=== PATIENT | male | born 1965 | race Caucasian/White ===

== ENCOUNTER 2019-12-03 05:07 | Emergency (ER) | payer OTHER, SELFPAY ==
--- OUTSIDE RECORDS SUMMARY | 2019-12-03 05:11 | XMS REPORT | Summary of Care ---
:1965 [facility] Address [address] [place] [phone] Encounter HQ [id number](FIN) [phone] Date(s): 01/06/18 - 01/07/[address] [phone] Discharge Disposition: Acute Care Attending Physician: Leobardo Estevez MD Vital Signs Most recent to oldest 1 2 3 [Reference Range]: Height 175.26 cm (01/06/18 11:00 PM) Temperature Oral [96.4-99.1 97.6 DegF 98.3 DegF 98.9 DegF DegF] (01/07/18 2:21 AM) (01/07/18 1:30 AM) (01/06/18 11: 00 PM) Blood Pressure [90-140/60-90 145/70 mmHg 140/80 mmHg 138 /81 mmHg mmHg] *HI* (01/07/18 1:30 AM) (01/07/18 12:24 AM) (01/07/18 2:21 AM) Respiratory Rate [14-20 22 BRMIN 20 BRMIN 20 BRMIN BRMIN] *HI* (01/07/18 1:30 AM) (01/07/18 12:24 AM) (01/07/18 2:21 AM) Peripheral Pulse Rate [60-100 98 bpm 100 bpm 10 4 bpm bpm] (01/07/18 2:21 AM) (01/07/18 1:30 AM) *HI* (01/07/18 12:24 A M) Weight 50 kg (01/06/18 11:00 PM) Body Mass Index 16.28 m2 (01/06/18 11:00 PM) Problem List No data available for this section Allergies, Adverse Reactions, Alerts Substance Reaction Severity Status NKDA Active Medications D5NS 1,000 mL 1,000 mL, Rate: 250 ml/hr, Infuse over: 4 hr, Route: IV, Dosing Weight 50 kg, Total Volume: 1,000, Start date: 01/07/18 0:10:00 CDT, Duration: 30 day, Stop date: 02/06/18 0:09:00 CDT, 1.56, m2 Start Date: 01/07/18 Stop Date: 01/07/18 Status: DiscontinuedDextrose 50% Syringe 25 gm, 50 mL, Route: IVP, Drug Form: INJ, kg, PRN, PRN Blood Glucose Results, Start date: 01/06/18 22:58:00 CDT, Duration: 30 day, Stop date: 02/05/18 22:57:00 CDT Start Date: 01/06/18 Stop Date: 01/07/18 Status: DiscontinuedDextrose 50% Syringe 12.5 gm, 25 mL, Route: IVP, Drug Form: INJ, kg, PRN, PRN Blood Glucose Results, Start date: 01/06/1822:58:00 CDT, Duration: 30 day, Stop date: 02/05/18 22:57:00 CDT Start Date: 01/06/18 Stop Date: 01/07/18 Status: Discontinuedglucagon 1 mg, Route: IM, Drug form: PDR/INJ, PRN, kg, PRN Blood Glucose Results, Start date: 01/06/18 22:58:00 CDT, Duration: 30 day, Stop date: 02/05/18 22:57:00 CDT Start Date: 01/06/18 Stop Date: 01/07/18 Status: DiscontinuedInsulin (regular) Titrate IV additive 100 unit + Sodium Chloride 0.9% (titrate) 99 mL 99 mL, Rate: Titrate, Dosing Weight 50, kg, Route: IV, Total Volume: 100, Priority: Routine, Start Date: 01/07/18 0:10:00 CDT, Duration: 30 day, Stop date: 02/06/18 0:09:00 CDT, Replace Every: 24 hr Notes: (Same as: Humulin R and NovoLIN R)WASTE: F/P - Black; E - Municipal Trash Bin (Do not shake) Start Date: 01/07/18 Stop Date: 01/07/18 Status: DiscontinuedLactated Ringers (Bolus) IV 1,500 mL, 2,000 ml/hr, Route: IV, ONCE, Priority: STAT, Dosing Weight 50 kg, Start date: 01/06/18 23:45:00 CDT, Stop date: 01/06/18 23:45:00 CDT Start Date: 01/06/18 Stop Date: 01/06/18 Status: Discontinuedmagnesium sulfate 1 gm, 100 mL, Route: IVPB, Drug form: INJ, PRN, Dosing Weight 50, kg, PRN Abnormal Lab Result, Startdate: 01/07/18 0:10:00 CDT, Duration: 30 day, Stop date: 02/06/18 0:09:00 CDT Notes: WASTE: F/P - Sink; E - Municipal Trash Bin Start Date: 01/07/18 Stop Date: 01/07/18 Status: Discontinuedondansetron 4 mg, 2 mL, Route: IVP, Drug form: INJ, ONCE, kg, Priority: STAT, Start date: 01/06/18 22:58:00 CDT,Stop date: 01/06/18 22:58:00 CDT Notes: (Same as: Zofran) MEDICATION WASTE Product Size: 4 mgProduct Wasted: ___ mg Start Date: 01/06/18 Stop Date: 01/06/18 Status: Completedpotassium chloride 20 mEq, 100 mL, Route: IVPB, Drug form: INJ, PRN, Dosing Weight 50, kg, PRN Abnormal Lab Result, Viacentral line, Start date: 01/07/18 0:10:00 CDT, Duration: 30 day, Stop date: 02/06/18 0:09:00 CDT Notes: (Same as: KCL) Infuse no faster than 10 mEq/hr if given peripherally. Start Date: 01/07/18 Stop Date: 01/07/18 Status: Discontinuedpotassium chloride 10 mEq, 100 mL, Route: IVPB, Drug form: INJ, PRN, Dosing Weight 50, kg, PRN Abnormal Lab Result, Viaperipheral line, Start date: 01/07/18 0:10:00 CDT, Duration: 30 day, Stop date: 02/06/18 0:09:00 CDT Notes: Infuse at a rate of 10 mEq/hr.(Same as: KCL) Start Date: 01/07/18 Stop Date: 01/07/18 Status: Discontinuedpotassium phosphate + Sodium Chloride 0.9% IV 250 mL 30 mmol, 10 mL, Route: IVPB, PRN, Dosing Weight 50, kg, PRN Abnormal Lab Result, Start date: 01/07/18 0:10:00 CDT, Duration: 30 day, Stop date: 02/06/18 0:09:00 CDT Notes: (Same as: K Phosphate.) 1 mMol phoshate has 1.47 mEq potassium Infuse over 4 hours Start Date: 01/07/18 Stop Date: 01/07/18 Status: Discontinuedpotassium phosphate + Sodium Chloride 0.9% IV 250 mL 15 mmol, 5 mL, Route: IVPB, PRN, Dosing Weight 50, kg, PRN Abnormal Lab Result, Start date: 180:10:00 CDT, Duration: 30 day, Stop date: 02/06/18 0:09:00 CDT Notes: (Same as: K Phosphate.) 1 mMol phoshate has 1.47 mEq potassium Infuse over 4 hours Start Date: 01/07/18 Stop Date: 01/07/18 Status: DiscontinuedSaline Flush 0.9% 10 mL, Route: IVP, Drug Form: INJ, kg, PRN, PRN Line Flush, Start date: 01/06/18 22:58:00 CDT, Duration: 30 day, Stop date: 02/05/18 22:57:00 CDT Notes: (Same as: BD Posiflush) Start Date: 01/06/18 Stop Date: 01/07/18 Status: DiscontinuedSaline Flush 0.9% 10 mL, Route: IVP, Drug Form: INJ, Dosing Weight 50, kg, PRN, PRN Line Flush, Start date: 01/06/18 23:45:00 CDT, Duration: 30 day, Stop date: 02/05/18 23:44:00 CDT Notes: (Same as: BD Posiflush) Start Date: 01/06/18 Stop Date: 01/07/18 Status: DiscontinuedSodium Chloride 0.9% (Bolus) IV 1,000 mL, 1000 ml/hr, Infuse Over: 1 hr, Route: IV, 1,000, Drug form: INJ, ONCE, Priority: STAT, kg,Start date: 01/06/18 22:58:00 CDT, Stop date: 01/06/18 22:58:00 CDT Start Date: 01/06/18 Stop Date: 01/06/18 Status: CompletedSodium Chloride 0.9% (Bolus) IV 1,000 mL, 1000 ml/hr, Infuse Over: 1 hr, Route: IV, 1,000, Drug form: INJ, ONCE, Priority: STAT, Dosing Weight 50 kg, Start date: 01/07/18 0:10:00 CDT, Stop date: 01/07/18 0:10:00 CDT Start Date: 01/07/18 Stop Date: 01/07/18 Status: Completed Results ELECTROLYTES Most recent to oldest [Reference Range]: 1 Sodium Lvl [135-145 mEq/L] 137 mEq/L (01/06/18 11:15 PM) Potassium Lvl [3.5-5.1 mEq/L] 4.5 mEq/L (01/06/18 11:15 PM) Chloride Lvl [95-109 mEq/L] 103 mEq/L (01/06/18 11:15 PM) CO2 [24-32 mEq/L] 14 mEq/L *LOW* (01/06/18 11:15 PM) AGAP [10.0-20.0 mEq/L] 24.5 mEq/L *HI* (01/06/18 11:15 PM) CHEM PANEL Most recent to oldest [Reference Range]: 1 Creatinine Lvl [0.50-1.40 mg/dL] 1.80 mg/dL *HI* (01/06/18 11:15 PM) eGFR 42 mL/min/1.73m2 1 *NA* (01/06/18 11:15 PM) BUN [7-22 mg/dL] 27 mg/dL *HI* (01/06/18 11:15 PM) B/C Ratio [6-25] 15 (01/06/18 11:15 PM) Glucose Lvl [70-99 mg/dL] 332 mg/dL *HI* (01/06/18 11:15 PM) Total Protein [6.4-8.4 g/dL] 8.7 g/dL *HI* (01/06/18 11:15 PM) Albumin Lvl [3.5-5.0 g/dL] 4.5 g/dL (01/06/18 11:15 PM) Globulin [2.7-4.2 g/dL] 4.2 g/dL (01/06/18 11:15 PM) A/G Ratio [0.7-1.6] 1.1 (01/06/18 11:15 PM) Calcium Lvl [8.5-10.5 mg/dL] 9.5 mg/dL (01/06/18 11:15 PM) Phosphorus [2.5-4.5 mg/dL] 4.0 mg/dL (01/06/18 11:15 PM) Magnesium Lvl [1.8-2.4 mg/dL] 2.4 mg/dL (01/06/18 11:15 PM) ALT [0-65 unit/L] 44 unit/L (01/06/18 11:15 PM) AST [0-37 unit/L] 30 unit/L (01/06/18 11:15 PM) Alk Phos [39-136 unit/L] 103 unit/L (01/06/18 11:15 PM) Bili Total [0.2-1.3 mg/dL] 0.6 mg/dL (01/06/18 11:15 PM) Lipase Lvl [73-393 unit/L] 358 unit/L (01/06/18 11:15 PM) Ketone Quantitative [<=0.27 mmol/L] 4.44 mmol/L *HI* (01/06/18 11:15 PM) Lactic Acid Lvl [0.5-2.2 mMol/L] 5.2 mMol/L 2 *CRIT* (01/06/18 11:15 PM) Procalcitonin Lvl [0.00-0.10] 0.13 *HI* (01/07/18 12:21 AM) 1Result Comment: The eGFR is calculated using the CKD-EPI formula. In most young, healthy individualsthe eGFR will be >90 mL/min/1.73m2. The eGFR declines with age. An eGFR of 60-89 may be normal insome populations, particularly the elderly, for whom the CKD-EPI formula has not been extensively validated. Use of the eGFR is not recommended in the following populations: Individuals with unstable creatinine concentrations, including patients and those with serious co-morbid conditions. Patients with extremes in muscle mass or diet. The data above are obtained from the National Kidney Disease Education Program (NKDEP) which additionally recommends that when the eGFR is used in patients with extremes of body mass index for purposesof drug dosing, the eGFR should be multiplied by the estimated BMI.2Result Comment: Critical Result(s) called to Mojgan Paul at [phone]_ by_JJ. Read back OK.CARDIAC ENZYMES Most recent to oldest [Reference Range]: 1 Total CK [12-191 unit/L] 54 unit/L (01/06/18 11:15 PM) CK MB [0.5-3.6 ng/mL] 0.6 ng/mL (01/06/18 11:15 PM) CK MB Index [0.0-2.5] 1.1 (01/06/18 11:15 PM) Troponin-I [0.00-0.40 ng/mL] <0.02 ng/mL (01/06/18 11:15 PM) DRUG SCREEN Most recent to oldest [Reference Range]: 1 U Amph Scr [Negative] Negative *NA* (01/07/18 2:11 AM) U Latisha Scr [Negative] Negative *NA* (01/07/18 2:11 AM) U Benzodia Scr [Negative] Negative *NA* (01/07/18 2:11 AM) U Cocaine Scr [Negative] Positive *ABN* (01/07/18 2:11 AM) U Opiate Scr [Negative] Negative *NA* (01/07/18 2:11 AM) U Phencyc Scr [Negative] Negative *NA* (01/07/18 2:11 AM) U Cannab Scr [Negative] Negative *NA* (01/07/18 2:11 AM) UDS Note See Note (01/07/18 2:11 AM) TOXICOLOGY Most recent to oldest [Reference Range]: 1 Etoh (%) <.003 % *NA* (01/06/18 11:15 PM) Ethanol Lvl <3 mg/dL *NA* (01/06/18 11:15 PM) URINE AND STOOL Most recent to oldest [Reference Range]: 1 UA Turbidity [Clear] Clear (01/07/18 2:11 AM) UA Color [Yellow] Yellow *NA* (01/07/18 2:11 AM) UA pH [5.0-8.0] 5.0 (01/07/18 2:11 AM) UA Spec Grav [<=1.030] 1.017 (01/07/18 2:11 AM) UA Glucose >=500 mg/dL *NA* (01/07/18 2:11 AM) UA Blood [Negative] Negative (01/07/18 2:11 AM) UA Ketones [Negative mg/dL] 80 mg/dL *ABN* (01/07/18 2:11 AM) UA Protein [Negative mg/dL] Negative mg/dL (01/07/18 2:11 AM) UA Urobilinogen [0.1-1.0 mg/dL] <=1.0 mg/dL *NA* (01/07/18 2:11 AM) UA Bili [Negative] Negative *NA* (01/07/18 2:11 AM) UA Leuk Est [Negative] Negative (01/07/18 2:11 AM) UA Nitrite [Negative] Negative (01/07/18 2:11 AM) UA WBC [0-5 /HPF] 2 /HPF (01/07/18 2:11 AM) UA RBC [0-2 /HPF] 2 /HPF (01/07/18 2:11 AM) UA Sq Epi [Few /LPF] Occasional /LPF *NA* (01/07/18 2:11 AM) UA Hyal Cast [0-2 /LPF] 4 /LPF *HI* (01/07/18 2:11 AM) UA Mucus [None Seen /LPF] Few /LPF *NA* (01/07/18 2:11 AM) HEMATOLOGY Most recent to oldest [Reference Range]: 1 WBC [3.7-10.4 K/CMM] 26.5 K/CMM *HI* (01/06/18 11:15 PM) RBC [4.70-6.10 M/CMM] 4.92 M/CMM (01/06/18 11:15 PM) Hgb [14.0-18.0 g/dL] 15.1 g/dL (01/06/18 11:15 PM) Hct [42.0-54.0 %] 43.9 % (01/06/18 11:15 PM) MCV [80.0-94.0 fL] 89.2 fL (01/06/18 11:15 PM) MCH [27.0-31.0 pg] 30.6 pg (01/06/18 11:15 PM) MCHC [32.0-36.0 g/dL] 34.3 g/dL (01/06/18 11:15 PM) RDW [11.5-14.5 %] 14.9 % *HI* (01/06/18 11:15 PM) MPV [7.4-10.4 fL] 7.2 fL *LOW* (01/06/18 11:15 PM) Platelet [133-450 K/CMM] 492 K/CMM *HI* (01/06/18 11:15 PM) Segs [45.0-75.0 %] 84.6 % *HI* (01/06/18 11:15 PM) Lymphocytes [20.0-40.0 %] 8.3 % *LOW* (01/06/18 11:15 PM) Monocytes [2.0-12.0 %] 6.5 % (01/06/18 11:15 PM) Basophils [0.0-1.0 %] 0.6 % (01/06/18 11:15 PM) Segs-Bands # [1.5-8.1 K/CMM] 22.4 K/CMM *HI* (01/06/18 11:15 PM) Lymphocytes # [1.0-5.5 K/CMM] 2.2 K/CMM (01/06/18 11:15 PM) Monocytes # [0.0-0.8 K/CMM] 1.7 K/CMM *HI* (01/06/18 11:15 PM) Basophils # [0.0-0.2 K/CMM] 0.2 K/CMM (01/06/18 11:15 PM) RBC Morph Normal (01/06/18 11:15 PM) Plt Morph Normal (01/06/18 11:15 PM) PT [12.0-14.7 seconds] 13.1 seconds (01/06/18 11:15 PM) INR [0.85-1.17] 0.99 (01/06/18 11:15 PM) PTT [22.9-35.8 seconds] 29.2 seconds (01/06/18 11:15 PM) Immunizations No data available for this section Procedures Procedure Date Related Diagnosis Body Site Status Cardiac catheter without angiogram1 Completed 1stents placed Social History Social History Type Response Substance Abuse Use: Current. Type: Marijua na. Alcohol Current Smoking Status Current every day smoker; Ty pe: Cigarettes; Exposure to Tobacco Smoke None; Cigarette Smoking Last 365 Days Yes; Reg Smoking Cessation Counseling No entered on: 01/06/18 Assessment and Plan No data available for this section
--- OUTSIDE RECORDS SUMMARY | 2019-12-03 05:11 | XMS REPORT | Summary of Care ---
:1965 Author Organization [facility] Address [address] [place] [address] Care Team Providers Name Role Phone Jf Potter MD Unavailable Andrea Beasley Primary Care Provider Reason for Visit Reason Comments Results Encounter Details Date Type Department Care Team Description 02/22/[address] [facility] Cardiology, Avtar Potter MD Results [facility] [address] [facility] [address] [facility] [address] [place] [address] [place] [id number] Allergies No Known Allergiesdocumented as of this encounter (statuses as of 02/22/2019) Medications Medication Sig Dispensed Refills Start Date End Date Status aspirin 81 mg chewable Take 81 mg by 0 Active tablet mouth daily. nitroglycerin 0.[address] 1 tablet 1 Bottle 2 11/03/2016 Active sublingual tablet under the tongue every 5 (five) minutes as needed for Chest pain. insulin aspart (NOVOLOG inject 5 Units 14 mL 1 05/27/2017 Active FLEXPEN) 100 unit/mL under the skin 3 injectionIndications: (three) times Type 1 diabetes daily before mellitus with other meals. + sliding circulatory scale as complication mentioned upto 8 units with meals clopidogrel 75 mg Take 1 tablet by 30 tablet 0 10/27/2018 Active tabletIndications: mouth daily. Coronary artery disease involving [place] coronary artery of [place] heart without angina pectoris METOPROLOL TARTRATE 25 TAKE ONE TABLET 60 tablet 0 12/01/2018 Active mg tabletIndications: BY MOUTH TWICE A Essential hypertension, DAY Coronary artery disease involving [place] coronary artery of [place] heart without angina pectoris ATORVASTATIN 80 mg TAKE ONE TABLET 30 tablet 0 12/01/2018 Active tabletIndications: BY MOUTH AT Coronary artery disease BEDTIME involving [place] coronary artery of [place] heart without angina pectoris ondansetron 4 mg Take 1 tablet by 12 tablet 0 01/08/2019 Active disintegrating mouth every 8 tabletIndications: (eight) hours as Nausea vomiting and needed for Nausea diarrhea, SOB and Vomiting (shortness of breath), (N/V). Dehydration lisinopril 5 mg tablet Take 5 mg by 0 Active mouth 2 (two) times daily. ezetimibe 10 mg tablet Take 1 tablet by 30 tablet 5 02/22/2019 Active mouth daily. Get blood work done April 26, 2019 documented as of this encounter (statuses as of 02/22/2019) Active Problems Problem Noted Date Type 1 diabetes mellitus with complication 05/27/2017 CAD (coronary artery disease), [place] coronary artery 12/09/2016 documented as of this encounter (statuses as of 02/22/2019) Immunizations Name Administration Dates Next Due Influenza Virus Vaccine 08/30/2017 documented as of this encounter Social History Tobacco Use Types Packs/Day Years Used Date Current Every Day Smoker Cigarettes 1 25 Smokeless Tobacco: Current User Alcohol Use Drinks/Week oz/Week Comments Yes once a month Sex Assigned at Date Recorded Not on file Job Start Date Occupation Industry Not on file Not on file Not on file Travel History Travel Start Travel End No recent travel history available. documented as of this encounter Last Filed Vital Signs Not on filedocumented in this encounter Plan of Treatment Date Type Specialty Care Team Description 07/13/2019 Office Visit Cardiology Avtar Potter MD [address] [place] [address] [place] [phone] Name Type Priority Associated Diagnoses Order S chedule LIPID PANEL LAB Routine Dyslipidemia Expected: 04/26 ([id number])(TOTAL (Approximate), Expires: CHOLESTEROL, 06/24/2019 TRIGLYCERIDES, HDL) Health Maintenance Due Date Last Done Comments PNEUMOCOCCAL 0-64 YEARS COMBINED 1970 SERIES (1 of 1 - PPSV23) EYE EXAM 1974 FOOT EXAM 1982 DTaP,Tdap,and Td Vaccines (1 - 1983 Tdap) COLONOSCOPY 2014 Zoster Recombinant Vaccine 2014 (SHINGRIX) (1 of 2) INFLUENZA VACCINE 03/26/2019 08/30/2017 HgA1C 05/19/2019 11/17/2018, 11/19/2016, 08/28/2003 LDL-C 11/18/2019 11/17/2018, 12/08/2016, 11/19/2016, Additional history exists URINE MICROALBUMIN 11/18/2019 11/17/2018, 12/08/2016 CREATININE (SERUM) 01/09/2020 01/08/2019, 11/17/2018, 12/10/2016, Additional history exists HEPATITIS C (HCV) SCREEN Completed 09/22/2016 documented as of this encounter Results Not on filedocumented in this encounter Visit Diagnoses Diagnosis Dyslipidemia - Primary Other and unspecified hyperlipidemia documented in this encounter Insurance Payer Benefit Plan Subscriber ID Effective Phone Address Typ e / Group Dates [employer] [id number] 2018-Prese [phone] [facility] [address] [place] [address] G[place]ON LEYVA [id number] 2018-Pres [phone] [facility] [address] [place] [address] documented as of this encounter
--- OUTSIDE RECORDS SUMMARY | 2019-12-03 05:11 | XMS REPORT | Summary of Care ---
:1965 Author Organization Formerly [facility] ospital Address [address] [place], [place] [address]- Encounter [facility] Latrice(DELON) [id number] Date(s): 01/07/18 - 01/08/18 [facility] [address] [place] [address]- Encounter Diagnosis Type 1 diabetes mellitus with ketoacidosis without coma (Final) - Discharge Disposition: Home or Self Care Attending Physician: Jaswinder Duncan MD Admitting Physician: Jaswinder Duncan MD Referring Physician: Alisha Bolanos MD Vital Signs Most recent to oldest 1 2 3 [Reference Range]: Height 167.64 cm (01/07/18 3:14 AM) Temperature Oral [96.4-99.1 98.1 DegF 98.4 DegF 98 D egF DegF] (01/08/18 12:05 PM) (01/08/18 8:08 AM) (01/08/18 3: 13 AM) Blood Pressure [90-140/60-90 147/81 mmHg 154/78 mmHg 149 /77 mmHg mmHg] *HI* *HI* *HI* (01/08/18 12:05 PM) (01/08/18 8:08 AM) (01/08/18 3: 13 AM) Respiratory Rate [14-20 BRMIN] 16 BRMIN 16 BRMIN 1 6 BRMIN (01/08/18 12:05 PM) (01/08/18 8:08 AM) (01/08/18 7: 58 AM) Peripheral Pulse Rate [60-100 90 bpm 89 bpm 90 bpm bpm] (01/08/18 12:05 PM) (01/08/18 8:08 AM) (01/08/18 3: 13 AM) Weight 43.6 kg (01/07/18 3:14 AM) Body Mass Index 15.51 m2 (01/07/18 3:14 AM) Problem List No data available for this section Allergies, Adverse Reactions, Alerts Substance Reaction Severity Status NKDA Active Medications Carafate 1 gm, 1 tab, Route: PO, Drug form: TAB, QID, Dosing Weight 43.6, kg, Start date: 01/07/18 4:30:00 CDT, Duration: 30 day, Stop date: 02/05/18 21:00:00 CDT Notes: May interfere w/enteral feeds - Take 1 hr before or 2 hr after antacids, dairy pdt, meals & minerals - On empty stomach.For patients unable to swallow tablet, dissolve in 10mL - 30mL of water or juice and stir before giving. (Same As: Carafate) Start Date: 01/07/18 Stop Date: 01/08/18 Status: DiscontinuedChloraseptic 1.4% spray 3 spray, Route: TOP, Q3H, Drug form: SPRY, PRN Sore Throat, Start date: 01/07/18 13:54:00 CDT, Duration: 30 day, Stop date: 02/06/18 13:53:00 CDT Notes: Chloraseptic [place](Same as: Chloraseptic, Sore Throat [place])WASTE: F/P - Black; E - MunicipalTrash Bin Start Date: 01/07/18 Stop Date: 01/08/18 Status: [id number] 1,000 mL 1,000 mL, Rate: 250 ml/hr, Infuse over: 4 hr, Route: IV, Dosing Weight 43.6 kg, Total Volume: 1,000,Start date: 01/07/18 3:17:00 CDT, Duration: 30 day, Stop date: 02/06/18 3:16:00 CDT, 1.43, m2 Start Date: 01/07/18 Stop Date: 01/07/18 Status: DiscontinuedDextrose 50% Syringe 25 gm, 50 mL, Route: IVP, Drug Form: INJ, Dosing Weight 43.6, kg, PRN, PRN Blood Glucose Results, Start date: 01/07/18 3:17:00 CDT, Duration: 30 day, Stop date: 02/06/18 3:16:00 CDT Start Date: 01/07/18 Stop Date: 01/07/18 Status: DiscontinuedDextrose 50% Syringe 12.5 gm, 25 mL, Route: IVP, Drug Form: INJ, Dosing Weight 43.6, kg, PRN, PRN Blood Glucose Results, Start date: 01/07/18 3:17:00 CDT, Duration: 30 day, Stop date: 02/06/18 3:16:00 CDT Start Date: 01/07/18 Stop Date: 01/07/18 Status: DiscontinuedDextrose 50% Syringe 25 gm, 50 mL, Route: IVP, Drug Form: INJ, Dosing Weight 43.6, kg, PRN, PRN Blood Glucose Results, Start date: 01/07/18 9:11:00 CDT, Duration: 30 day, Stop date: 02/06/18 9:10:00 CDT Start Date: 01/07/18 Stop Date: 01/08/18 Status: DiscontinuedDextrose 50% Syringe 12.5 gm, 25 mL, Route: IVP, Drug Form: INJ, Dosing Weight 43.6, kg, PRN, PRN Blood Glucose Results, Start date: 01/07/18 9:11:00 CDT, Duration: 30 day, Stop date: 02/06/18 9:10:00 CDT Start Date: 01/07/18 Stop Date: 01/08/18 Status: DiscontinuedDuoNeb inhalation solution 3 ml, Route: NEB, Drug Form: SOLN, Dosing Weight 43.6, kg, PRN, PRN Respiratory Pathway, Start date:01/07/18 3:24:00 CDT, Duration: 30 day, Stop date: 02/06/18 3:23:00 CDT Notes: (Same as: Duoneb) Start Date: 01/07/18 Stop Date: 01/08/18 Status: Discontinuedglucagon 1 mg, Route: IM, Drug form: PDR/INJ, PRN, Dosing Weight 43.6, kg, PRN Blood Glucose Results, Start date: 01/07/18 3:17:00 CDT, Duration: 30 day, Stop date: 02/06/18 3:16:00 CDT Start Date: 01/07/18 Stop Date: 01/07/18 Status: Discontinuedglucagon 1 mg, Route: IM, Drug form: PDR/INJ, PRN, Dosing Weight 43.6, kg, PRN Blood Glucose Results, Start date: 01/07/18 9:11:00 CDT, Duration: 30 day, Stop date: 02/06/18 9:10:00 CDT Start Date: 01/07/18 Stop Date: 01/08/18 Status: Discontinuedheparin 5,000 unit, 1 mL, Route: SUB-Q, Drug form: INJ, Q12H, Dosing Weight 50, kg, Start date: 01/07/18 9:00:00 CDT, Duration: 30 day, Stop date: 02/05/18 21:00:00 CDT Notes: porcine heparin Start Date: 01/07/18 Stop Date: 01/08/18 Status: DiscontinuedInsulin (regular) Titrate IV additive 100 unit + Sodium Chloride 0.9% (titrate) 99 mL 99 mL, Rate: Titrate, Dosing Weight 43.6, kg, Route: IV, Total Volume: 100, Priority: Routine, StartDate: 01/07/18 3:17:00 CDT, Duration: 30 day, Stop date: 02/06/18 3:16:00 CDT, Replace Every: 24 hr Notes: (Same as: Humulin R and NovoLIN R)WASTE: F/P - Black; E - Municipal Trash Bin (Do not shake) Start Date: 01/07/18 Stop Date: 01/07/18 Status: Discontinuedinsulin glargine 10 unit, 0.1 mL, Route: SUB-Q, Drug form: SOLN, Daily, Dosing Weight 43.6, kg, Start date: 01/07/18 10:30:00 CDT, Duration: 30 day, Stop date: 02/06/18 9:00:00 CDT Notes: (Same as: Lantus)Do not hold insulin without contacting prescriberWASTE: F/P - Black; E - Municipal Trash Bin "single patient use only" Start Date: 01/07/18 Stop Date: 01/08/18 Status: Discontinuedinsulin isophane-NPH 5 unit, SUB-Q, QPM Start Date: 01/07/18 Status: Orderedinsulin isophane-NPH 15 unit, SUB-Q, QAM Start Date: 01/07/18 Status: Orderedinsulin lispro 2 unit, 0.02 mL, Route: SUB-Q, Drug form: SOLN, TID-Before Meals, Dosing Weight 43.6, kg, PRN Blood Glucose Results, Start date: 01/07/18 9:11:00 CDT, Duration: 30 day, Stop date: 02/06/18 9:10:00 CDT Notes: (Same as: Humalog ) Roll in palms of hands gently; Do not shake `vigorously. "Single PatientUse Only " WASTE: F/P - Black; E - Municipal Trash Bin Stable for 28 days at room temperature.Expires in days from Date Start Date: 01/07/18 Stop Date: 01/08/18 Status: Discontinuedinsulin lispro 4 unit, 0.04 mL, Route: SUB-Q, Drug form: SOLN, TID-Before Meals, Dosing Weight 43.6, kg, PRN Blood Glucose Results, Start date: 01/07/18 9:11:00 CDT, Duration: 30 day, Stop date: 02/06/18 9:10:00 CDT Notes: (Same as: Humalog ) Roll in palms of hands gently; Do not shake `vigorously. "Single PatientUse Only " WASTE: F/P - Black; E - Municipal Trash Bin Stable for 28 days at room temperature.Expires in days from Date Start Date: 01/07/18 Stop Date: 01/08/18 Status: Discontinuedinsulin lispro 6 unit, 0.06 mL, Route: SUB-Q, Drug form: SOLN, TID-Before Meals, Dosing Weight 43.6, kg, PRN Blood Glucose Results, Start date: 01/07/18 9:11:00 CDT, Duration: 30 day, Stop date: 02/06/18 9:10:00 CDT Notes: (Same as: Humalog ) Roll in palms of hands gently; Do not shake `vigorously. "Single PatientUse Only " WASTE: F/P - Black; E - Municipal Trash Bin Stable for 28 days at room temperature.Expires in days from Date Start Date: 01/07/18 Stop Date: 01/08/18 Status: Discontinuedinsulin lispro 10 unit, 0.1 mL, Route: SUB-Q, Drug form: SOLN, TID-Before Meals, Dosing Weight 43.6, kg, PRN Blood Glucose Results, Start date: 01/07/18 9:11:00 CDT, Duration: 30 day, Stop date: 02/06/18 9:10:00 CDT Notes: (Same as: Humalog ) Roll in palms of hands gently; Do not shake `vigorously. "Single PatientUse Only " WASTE: F/P - Black; E - Municipal Trash Bin Stable for 28 days at room temperature.Expires in days from Date Start Date: 01/07/18 Stop Date: 01/08/18 Status: Discontinuedinsulin lispro 8 unit, 0.08 mL, Route: SUB-Q, Drug form: SOLN, TID-Before Meals, Dosing Weight 43.6, kg, PRN Blood Glucose Results, Start date: 01/07/18 9:11:00 CDT, Duration: 30 day, Stop date: 02/06/18 9:10:00 CDT Notes: (Same as: Humalog ) Roll in palms of hands gently; Do not shake `vigorously. "Single PatientUse Only " WASTE: F/P - Black; E - Municipal Trash Bin Stable for 28 days at room temperature.Expires in days from Date Start Date: 01/07/18 Stop Date: 01/08/18 Status: Discontinuedinsulin lispro 3 unit, 0.03 mL, Route: SUB-Q, Drug form: SOLN, Bedtime, Dosing Weight 43.6, kg, PRN Blood Glucose Results, Start date: 01/07/18 9:11:00 CDT, Duration: 30 day, Stop date: 02/06/18 9:10:00 CDT Notes: (Same as: Humalog ) Roll in palms of hands gently; Do not shake `vigorously. "Single PatientUse Only " WASTE: F/P - Black; E - Municipal Trash Bin Stable for 28 days at room temperature.Expires in days from Date Start Date: 01/07/18 Stop Date: 01/08/18 Status: Discontinuedinsulin lispro 2 unit, 0.02 mL, Route: SUB-Q, Drug form: SOLN, Bedtime, Dosing Weight 43.6, kg, PRN Blood Glucose Results, Start date: 01/07/18 9:11:00 CDT, Duration: 30 day, Stop date: 02/06/18 9:10:00 CDT Notes: (Same as: Humalog ) Roll in palms of hands gently; Do not shake `vigorously. "Single PatientUse Only " WASTE: F/P - Black; E - Municipal Trash Bin Stable for 28 days at room temperature.Expires in days from Date Start Date: 01/07/18 Stop Date: 01/08/18 Status: Discontinuedinsulin lispro 1 unit, 0.01 mL, Route: SUB-Q, Drug form: SOLN, Bedtime, Dosing Weight 43.6, kg, PRN Blood Glucose Results, Start date: 01/07/18 9:11:00 CDT, Duration: 30 day, Stop date: 02/06/18 9:10:00 CDT Notes: (Same as: Humalog ) Roll in palms of hands gently; Do not shake `vigorously. "Single PatientUse Only " WASTE: F/P - Black; E - Municipal Trash Bin Stable for 28 days at room temperature.Expires in days from Date Start Date: 01/07/18 Stop Date: 01/08/18 Status: Discontinuedinsulin lispro 4 unit, 0.04 mL, Route: SUB-Q, Drug form: SOLN, Bedtime, Dosing Weight 43.6, kg, PRN Blood Glucose Results, Start date: 01/07/18 9:11:00 CDT, Duration: 30 day, Stop date: 02/06/18 9:10:00 CDT Notes: (Same as: Humalog ) Roll in palms of hands gently; Do not shake `vigorously. "Single PatientUse Only " WASTE: F/P - Black; E - Municipal Trash Bin Stable for 28 days at room temperature.Expires in days from Date Start Date: 01/07/18 Stop Date: 01/08/18 Status: Discontinuedinsulin lispro 3 unit, 0.03 mL, Route: SUB-Q, Drug form: SOLN, TID-Before Meals, Dosing Weight 43.6, kg, Start date: 01/07/18 11:30:00 CDT, Duration: 30 day, Stop date: 02/06/18 7:30:00 CDT Notes: (Same as: Humalog ) Roll in palms of hands gently; Do not shake `vigorously. "Single PatientUse Only " WASTE: F/P - Black; E - Municipal Trash Bin Stable for 28 days at room temperature.Expires in days from Date Start Date: 01/07/18 Stop Date: 01/08/18 Status: Discontinuedinsulin regular 100 units/mL human recombinant See Instructions, Sliding scale before meals based on BG result Start Date: 01/07/18 Status: Orderedmagnesium sulfate 1 gm, 100 mL, Route: IVPB, Drug form: INJ, PRN, Dosing Weight 43.6, kg, PRN Abnormal Lab Result, Start date: 01/07/18 3:17:00 CDT, Duration: 30 day, Stop date: 02/06/18 3:16:00 CDT Notes: WASTE: F/P - Sink; E - Municipal Trash Bin Start Date: 01/07/18 Stop Date: 01/07/18 Status: Discontinuedmupirocin topical 2% ointment 1 appl, Route: NASAL, Q12H, Drug form: OINT, Start date: 01/07/18 9:00:00 CDT, Duration: 5 day, Stopdate: 01/11/18 21:00:00 CDT Start Date: 01/07/18 Stop Date: 01/08/18 Status: DiscontinuedNon-Formulary Home Medication PO, Daily, Blood pressure medication - pt unsure of name of medication and dose Start Date: 01/07/18 Status: OrderedNorco 5/325 oral tablet 1 tab, Route: PO, Drug Form: TAB, Dosing Weight 43.6, kg, Q4H, PRN Pain Score 6- 10, Start date: 01/07/18 22:35:00 CDT, Duration: 30 day, Stop date: 02/06/18 22:34:00 CDT Notes: (Same as: [place] 325/5) Do not exceed 4gm/day of acetaminophen. Start Date: 01/07/18 Stop Date: 01/08/18 Status: Discontinuedpneumococcal 23-valent vaccine 0.5 mL, Route: IM, Drug Form: INJ, ONCALL, Start date: 01/07/18 4:31:58 CDT, Stop date: 02/06/18 4:26:58 CDT Notes: (Same as: Pneumovax 23) Refrigerate Start Date: 01/07/18 Stop Date: 01/08/18 Status: Canceledpotassium chloride + Sodium Chloride 0.9% IV 90 mL 20 mEq, 10 mL, Route: IVPB, PRN, Dosing Weight 43.6, kg, PRN Abnormal Lab Result, Via central line, Start date: 01/07/18 3:17:00 CDT, Duration: 30 day, Stop date: 02/06/18 3:16:00 CDT Notes: MUST be Diluted before use(Same as: KCl) MEDICATION WASTE Product Size: 40 mEqProduct Wasted: 20 mEq Start Date: 01/07/18 Stop Date: 01/07/18 Status: Discontinuedpotassium chloride + Sodium Chloride 0.9% IV 95 mL 10 mEq, 5 mL, Route: IVPB, PRN, Dosing Weight 43.6, kg, PRN Abnormal Lab Result, Via peripheral line, Start date: 01/07/18 3:17:00 CDT, Duration: 30 day, Stop date: 02/06/18 3:16:00 CDT Notes: MUST be Diluted before use(Same as: KCl) MEDICATION WASTE Product Size: 40 mEqProduct Wasted: 30 mEq Start Date: 01/07/18 Stop Date: 01/07/18 Status: Discontinuedpotassium phosphate + Sodium Chloride 0.9% IV 250 mL 15 mmol, 5 mL, Route: IVPB, PRN, Dosing Weight 43.6, kg, PRN Abnormal Lab Result, Start date: 01/07/18 3:17:00 CDT, Duration: 30 day, Stop date: 02/06/18 3:16:00 CDT Notes: (Same as: K Phosphate.) 1 mMol phoshate has 1.47 mEq potassium Infuse over 4 hours Start Date: 01/07/18 Stop Date: 01/07/18 Status: Discontinuedpotassium phosphate + Sodium Chloride 0.9% IV 250 mL 30 mmol, 10 mL, Route: IVPB, PRN, Dosing Weight 43.6, kg, PRN Abnormal Lab Result, Start date: 01/07/18 3:17:00 CDT, Duration: 30 day, Stop date: 02/06/18 3:16:00 CDT Notes: (Same as: K Phosphate.) 1 mMol phoshate has 1.47 mEq potassium Infuse over 4 hours Start Date: 01/07/18 Stop Date: 01/07/18 Status: DiscontinuedProtonix 40 mg, Route: IVP, Drug form: INJ, Daily, Dosing Weight 43.6, kg, Patient is NPO, Start date: 01/07/18 4:30:00 CDT, Duration: 30 day, Stop date: 02/05/18 9:00:00 CDT Notes: For IV push reconstitute with 10 ml 0.9% sodium chloride and push over 2 minutes. (Same as: Protonix) Start Date: 01/07/18 Stop Date: 01/08/18 Status: DiscontinuedProtonix 40 mg oral enteric coated tablet 40 mg = 1 tab, PO, Daily, # 30 tab, 0 Refill(s), Pharmacy: [facility] [id number] Start Date: 01/08/18 Status: OrderedProventil HFA 90 mcg/inh inhalation aerosol with adapter 1 puff, INHALER, QID, PRN for wheezing, # 25 gm, 0 Refill(s), [facility] [id number] Start Date: 01/08/18 Status: OrderedSodium Chloride 0.9% IV 1,000 mL 1,000 mL, Rate: 250 ml/hr, Infuse over: 4 hr, Route: IV, Dosing Weight 43.6 kg, Total Volume: 1,000,When Finger stick blood glucose values remain ABOVE 250 mg/dL administer until BG is less than 250 mg/dL., Start date: 01/07/18 3:17:00 CDT, Duration:... Start Date: 01/07/18 Stop Date: 01/07/18 Status: DiscontinuedTylenol 650 mg, 2 tab, Route: PO, Drug form: TAB, Q6H, Dosing Weight 43.6, kg, PRN Pain Score 1-5, Start date: 01/07/18 22:35:00 CDT, Duration: 30 day, Stop date: 02/06/18 22:34:00 CDT Notes: Do not exceed 4 gm/day. (Same as: Tylenol) Start Date: 01/07/18 Stop Date: 01/08/18 Status: Discontinued Results ELECTROLYTES Most recent to oldest 1 2 3 [Reference Range]: Sodium Lvl [135-145 mEq/L] 141 mEq/L 143 mEq/L 140 m Eq/L (01/07/18 7:09 PM) (01/07/18 9:35 AM) (01/07/18 3:5 8 AM) Potassium Lvl [3.5-5.1 3.6 mEq/L 4.1 mEq/L 3.7 mEq/L mEq/L] (01/07/18 7:09 PM) (01/07/18 9:35 AM) (01/07/18 3:5 8 AM) Chloride Lvl [95-109 mEq/L] 111 mEq/L 116 mEq/L 111 mEq/L *HI* *HI* *HI* (01/07/18 7:09 PM) (01/07/18 9:35 AM) (01/07/18 3:5 8 AM) CO2 [24-32 mEq/L] 20 mEq/L 18 mEq/L 19 mEq/L *LOW* *LOW* *LOW* (01/07/18 7:09 PM) (01/07/18 9:35 AM) (01/07/18 3:5 8 AM) AGAP [10.0-20.0 mEq/L] 13.6 mEq/L 13.1 mEq/L 13.7 mEq/ L (01/07/18 7:09 PM) (01/07/18 9:35 AM) (01/07/18 3:5 8 AM) CHEM PANEL Most recent to oldest 1 2 3 [Reference Range]: Creatinine Lvl [0.50-1.40 0.94 mg/dL 0.98 mg/dL 1.23 m g/dL mg/dL] (01/07/18 7:09 PM) (01/07/18 9:35 AM) (01/07/18 3:5 8 AM) eGFR 93 mL/min/1.73m2 1 88 mL/min/1.73m2 2 67 mL/min/ 1.73m2 3 *NA* *NA* *NA* (01/07/18 7:09 PM) (01/07/18 9:35 AM) (01/07/18 3:5 8 AM) BUN [7-22 mg/dL] 9 mg/dL 17 mg/dL 22 mg/dL (01/07/18 7:09 PM) (01/07/18 9:35 AM) (01/07/18 3:5 8 AM) Glucose Lvl [70-99 mg/dL] 106 mg/dL 124 mg/dL 143 mg /dL *HI* *HI* *HI* (01/07/18 7:09 PM) (01/07/18 9:35 AM) (01/07/18 3:5 8 AM) Calcium Lvl [8.5-10.5 mg/dL] 7.9 mg/dL 7.8 mg/dL 8.3 mg/dL *LOW* *LOW* *LOW* (01/07/18 7:09 PM) (01/07/18 9:35 AM) (01/07/18 3:5 8 AM) Phosphorus [2.5-4.5 mg/dL] 2.1 mg/dL *LOW* (01/07/18 9:35 AM) Magnesium Lvl [1.8-2.4 1.9 mg/dL 2.0 mg/dL 2.1 mg/dL mg/dL] (01/07/18 9:35 AM) (01/07/18 9:35 AM) (01/07/18 3:5 8 AM) Ketone Quantitative [<=0.27 0.53 mmol/L mmol/L] *HI* (01/07/18 9:35 AM) 1Result Comment: The eGFR is calculated [...] be multiplied by the estimated BMI.2Result Comment: The eGFR is calculated using the [...] eGFR should be multiplied by the estimated BMI.3Result Comment: The eGFR is calculated using the [...] eGFR should be multiplied by the estimated BMI.SPECIAL CHEMISTRY Most recent to oldest [Reference Range]: 1 2 3 Hgb A1C [<=5.6 %] 10.2 % *HI* (01/07/18 3:58 AM) HEMATOLOGY Most recent to oldest [Reference Range]: 1 2 3 WBC [3.7-10.4 K/CMM] 11.1 K/CMM *HI* (01/08/18 1:59 PM) RBC [4.70-6.10 M/CMM] 4.20 M/CMM *LOW* (01/08/18 1:59 PM) Hgb [14.0-18.0 g/dL] 12.9 g/dL *LOW* (01/08/18 1:59 PM) Hct [42.0-54.0 %] 37.5 % *LOW* (01/08/18 1:59 PM) MCV [80.0-94.0 fL] 89.4 fL (01/08/18 1:59 PM) MCH [27.0-31.0 pg] 30.8 pg (01/08/18 1:59 PM) MCHC [32.0-36.0 g/dL] 34.4 g/dL (01/08/18 1:59 PM) RDW [11.5-14.5 %] 14.3 % (01/08/18 1:59 PM) MPV [7.4-10.4 fL] 7.5 fL (01/08/18 1:59 PM) Platelet [133-450 K/CMM] 318 K/CMM (01/08/18 1:59 PM) Segs [45.0-75.0 %] 70.2 % (01/08/18 1:59 PM) Lymphocytes [20.0-40.0 %] 19.0 % *LOW* (01/08/18 1:59 PM) Monocytes [2.0-12.0 %] 9.5 % (01/08/18 1:59 PM) Eosinophils [0.0-4.0 %] 0.5 % (01/08/18 1:59 PM) Basophils [0.0-1.0 %] 0.8 % (01/08/18 1:59 PM) Segs-Bands # [1.5-8.1 K/CMM] 7.8 K/CMM (01/08/18 1:59 PM) Lymphocytes # [1.0-5.5 K/CMM] 2.1 K/CMM (01/08/18 1:59 PM) Monocytes # [0.0-0.8 K/CMM] 1.1 K/CMM *HI* (01/08/18 1:59 PM) Eosinophils # [0.0-0.5 K/CMM] 0.1 K/CMM (01/08/18 1:59 PM) Basophils # [0.0-0.2 K/CMM] 0.1 K/CMM (01/08/18 1:59 PM) Immunizations No data available for this [...]
--- OUTSIDE RECORDS SUMMARY | 2019-12-03 05:11 | XMS REPORT | Continuity of Care Document ---
:1965 Author Organization [facility] Care Team Providers Name Role Phone [employer] Unavailable Un available Problems Problem Status Onset Classification Date Comments Sourc e Date Reported TROUBLE Active 01/07/20 [facility] BREATHING 18 [place] DKA Active 01/07/[address] 18 Type 1 diabetes 01/11/2018 [place] mellitus with ketoacidosis without coma TYPE 1 DIABETES [place] MELLITUS WITH KETOACIDOS Medications Medication Details Route Status Patient Ordering Order Source Instructions Provider Date 200 ACTUAT 1 puff, Active Albuterol 0.09 INHALER, QID, 2018 Tana theast MG/ACTUAT PRN for Metered Dose wheezing, # 25 Inhaler gm, 0 [Proventil] Refill(s), Pharmacy: [facility] [id number] pantoprazole 40 40 mg = 1 tab, Active H MG Enteric PO, Daily, # 2018 [facility] t Coated Tablet 30 tab, 0 [Protonix] Refill(s), Pharmacy: [facility] [address] Tylenol Notes: Do not No Longer exceed 4 Active 2017 [facility] gm/day. (Same as: Tylenol) Acetaminophen Notes: (Same No Longer 325 MG / as: [place] Active 2017 [facility] Hydrocodone 325/5) Do not Bitartrate 5 MG exceed 4gm/day Oral Tablet of [[place] 5/325] acetaminophen. phenol 14 MG/ML Notes: No Longer Mucosal [place] Chloraseptic Active 2017 [facility] [place] (Same as: Chloraseptic, Sore Throat [place]) WASTE: F/P - Black; [place] [facility] [place] Trash [facility] Insulin Lispro Notes: (Same No Longer as: Humalog ) Active 2017 [facility] Roll in palms of hands gently; Do not shake `vigorously. "Single Patient Use Only " WASTE: F/P - Black; E - [place] Trash Bin Stable for 28 days at room temperature. Expires in days from Date Insulin Glargine Notes: (Same No Longer as: Lantus) Do Active 2017 [facility] not hold insulin without contacting prescriber WASTE: F/P - Black; E - [place] Trash Bin "single patient use only" insulin, 5 unit, SUB-Q, Active isophane QPM 2017 Regular Insulin, See Active Human 100 UNT/ML Instructions, 2018 [place] Injectable Sliding scale Solution before meals based on BG result Non-Formulary PO, Daily, Active Home Medication Blood pressure 2018 [place] medication - pt unsure of name of medication and dose Insulin Lispro Notes: (Same No Longer as: Humalog ) Active 2017 [facility] Roll in palms of hands gently; Do not shake `vigorously. "Single Patient Use Only " WASTE: F/P - Black; E - [place] Trash Bin Stable for 28 days at room temperature. Expires in days from Date Glucagon 1 mg, Route: No Longer IM, Drug form: Active 2017 [facility] PDR/INJ, PRN, Dosing Weight 43.6, kg, PRN Blood Glucose Results, Start date: 01/07/18 9:11:00 CDT, Duration: 30 day, Stop date: 02/06/18 9:10:00 CDT Dextrose 50% 25 gm, 50 mL, No Longer Syringe Route: IVP, Active 2017 [facility] Drug Form: INJ, Dosing Weight 43.6, kg, PRN, PRN Blood Glucose Results, Start date: 01/07/18 9:11:00 CDT, Duration: 30 day, Stop date: 02/06/18 9:10:00 CDT heparin Notes: porcine No Longer heparin Active 2017 [facility] Mupirocin 0.02 1 appl, Route: No Longer MG/MG Topical NASAL, Q12H, Active 2017 [facility] Ointment Drug form: OINT, Start date: 01/07/18 9:00:00 CDT, Duration: 5 day, Stop date: 01/11/18 21:00:00 CDT pneumococcal Notes: (Same No Longer capsular as: Pneumovax Active 2017 [facility] polysaccharide 23) type 1 vaccine / Refrigerate pneumococcal capsular polysaccharide type 10A vaccine / pneumococcal capsular polysaccharide type 11A vaccine / pneumococcal capsular polysaccharide type 12F vaccine / pneumococcal capsular polysacchar Carafate Notes: May No Longer interfere Active 2017 [facility] w/enteral feeds - Take 1 hr before or 2 hr after antacids, dairy pdt, meals & minerals - On empty stomach. For patients unable to swallow tablet, dissolve in 10mL - 30mL of water or juice and stir before giving. (Same As: Carafate) Protonix Notes: For IV No Longer push Active 2017 [facility] reconstitute with 10 ml 0.9% sodium chloride and push over 2 minutes. (Same as: Protonix) Albuterol 0.833 Notes: (Same No Longer H MG/ML / as: Duoneb) Active 2017 [facility] Ipratropium [place] 0.167 MG/ML Inhalant Solution [DuoNeb] potassium Notes: (Same Inactive phosphate as: K 2017 [facility] Phosphate.) 1 mMol phoshate has 1.47 mEq potassium Infuse over 4 hours Magnesium Notes: WASTE: Inactive Sulfate F/P - Sink; E 2017 - [facility] Trash Bin Potassium Notes: MUST be Inactive Chloride Diluted before 2017eas t use (Same as: KCl) MEDICATION WASTE Product Size: 40 mEq Product Wasted: 20 mEq Dextrose 50% 25 gm, 50 mL, Inactive Syringe Route: IVP, 2017 [facility] Drug Form: INJ, Dosing Weight 43.6, kg, PRN, PRN Blood Glucose Results, Start date: 01/07/18 3:17:00 CDT, Duration: 30 day, Stop date: 02/06/18 3:16:00 CDT Glucagon 1 mg, Route: Inactive IM, Drug form: 2017 [facility] PDR/INJ, PRN, Dosing Weight 43.6, kg, PRN Blood Glucose Results, Start date: 01/07/18 3:17:00 CDT, Duration: 30 day, Stop date: 02/06/18 3:16:00 CDT Insulin Notes: (Same Inactive (regular) as: Humulin R 2018 [place] Titrate IV and NovoLIN R) additive 100 [place]: F/P - unit + Sodium Black; E - Chloride 0.9% [place] (titrate) 99 mL Trash Bin (Do not shake) D5NS 1,000 mL 1,000 mL, Inactive Rate: 250 2017 [place] ml/hr, Infuse over: 4 hr, Route: IV, Dosing Weight 43.6 kg, Total Volume: 1,000, Start date: 01/07/18 3:17:00 CDT, Duration: 30 day, Stop date: 02/06/18 3:16:00 CDT, 1.43, m2 Sodium Chloride 1,000 mL, Inactive 0.9% IV 1,000 mL Rate: 250 2017 [facility] ml/hr, Infuse over: 4 hr, Route: IV, Dosing Weight 43.6 kg, Total Volume: 1,000, When Finger stick blood glucose values remain ABOVE 250 mg/dL administer until BG is less than 250 mg/dL., Start date: 01/07/18 3:17:00 CDT, Duration:... Magnesium Notes: WASTE: Inactive Sulfate F/P - Sink; E 2017 [place] - [facility] Trash Bin Potassium Notes: (Same Inactive Chloride as: KCL) 2017 [place] Infuse no faster than 10 mEq/hr if given peripherally. Insulin Notes: (Same Inactive (regular) as: Humulin R 2018 [place] Titrate IV and NovoLIN R) additive 100 [place]: F/P - unit + Sodium Black; E - Chloride 0.9% [place] (titrate) 99 mL Trash Bin (Do not shake) potassium Notes: (Same Inactive phosphate as: K 2017 [place] Phosphate.) 1 mMol phoshate has 1.47 mEq potassium Infuse over 4 hours D5NS 1,000 mL 1,000 mL, Inactive Rate: 250 2017 [place] ml/hr, Infuse over: 4 hr, Route: IV, Dosing Weight 50 kg, Total Volume: 1,000, Start date: 01/07/18 0:10:00 CDT, Duration: 30 day, Stop date: 02/06/18 0:09:00 CDT, 1.56, m2 Sodium Chloride 1,000 mL, 1000 Inactive 0.9% (Bolus) IV ml/hr, Infuse 2017 [place] Over: 1 hr, Route: IV, 1,000, Drug form: INJ, ONCE, Priority: STAT, Dosing Weight 50 kg, Start date: 01/07/18 0:10:00 CDT, Stop date: 01/07/18 0:10:00 CDT Calcium Chloride 1,500 mL, Inactive 0.0014 MEQ/ML / 2,000 ml/hr, 2018 [place] Potassium Route: IV, Chloride 0.004 ONCE, MEQ/ML / Sodium Priority: Chloride 0.103 STAT, Dosing MEQ/ML / Sodium Weight 50 kg, Lactate 0.028 Start date: MEQ/ML 01/06/18 In[place] 23:45:00 CDT, Solution Stop date: 01/06/18 23:45:00 CDT Saline Flush Notes: (Same No Longer 0.9% as: BD Active 2017 [place] Posiflush) Glucagon 1 mg, Route: No Longer IM, Drug form: Active 2017 [place] PDR/INJ, PRN, kg, PRN Blood Glucose Results, Start date: 01/06/18 22:58:00 CDT, Duration: 30 day, Stop date: 02/05/18 22:57:00 CDT Ondansetron Notes: (Same Inactive as: Zofran) 2017 [place] MEDICATION WASTE Product Size: 4 mg Product Wasted: ___ mg Dextrose 50% 25 gm, 50 mL, No Longer Syringe Route: IVP, Active 2017 [place] Drug Form: INJ, kg, PRN, PRN Blood Glucose Results, Start date: 01/06/18 22:58:00 CDT, Duration: 30 day, Stop date: 02/05/18 22:57:00 CDT Saline Flush Notes: (Same No Longer 0.9% as: BD Active 2017 [place] Posiflush) Sodium Chloride 1,000 mL, 1000 Inactive 0.9% (Bolus) IV ml/hr, Infuse 2017 [place] Over: 1 hr, Route: IV, 1,000, Drug form: INJ, ONCE, Priority: STAT, kg, Start date: 01/06/18 22:58:00 CDT, Stop date: 01/06/18 22:58:00 CDT Allergies, Adverse Reactions, Alerts No Known Medication Allergies Immunizations No Data Provided for This Section Results Order Name Results Value Reference Date Interpretation Comments Tana rce [facility] HEMATOLOGY MCH 30.8 27.0 - 01/08 MH 31.0 /2017 [facility] HEMATOLOGY WBC 11.1 3.7 - 10.4 01/08 [facility] HEMATOLOGY Hct 37.5 42.0 - 01/08 MH 54.0 /2017 [facility] HEMATOLOGY MCV 89.4 80.0 - 01/08 MH 94.0 /2017 [facility] HEMATOLOGY RBC 4.20 4.70 - 01/08 MH 6.10 /2017 [facility] HEMATOLOGY Hgb 12.9 14.0 - 01/08 MH 18.0 /2017 [facility] HEMATOLOGY Platelet 318 133 - 450 01/08 [facility] HEMATOLOGY MPV 7.5 7.4 - 10.4 01/08 /2017 [facility] HEMATOLOGY MCHC 34.4 32.0 - 01/08 MH 36.0 /2017 [facility] HEMATOLOGY RDW 14.3 11.5 - 01/08 MH 14.5 /2017 [facility] HEMATOLOGY Segs-Bands # 7.8 1.5 - 8.1 01/08 /2017 [facility] HEMATOLOGY Lymphocytes 2.1 1.0 - 5.5 01/08 MH # /2018 [facility] HEMATOLOGY Basophils 0.8 0.0 - 1.0 01/08 [facility] HEMATOLOGY Eosinophils 0.5 0.0 - 4.0 01/08 [facility] HEMATOLOGY Lymphocytes 19.0 20.0 - 01/08 MH 40.0 /2017 [facility] HEMATOLOGY Monocytes 9.5 2.0 - 12.0 01/08 [facility] HEMATOLOGY Segs 70.2 45.0 - 01/08 MH 75.0 /2017 [facility] HEMATOLOGY Eosinophils 0.1 0.0 - 0.5 01/08 MH # /2018 [facility] HEMATOLOGY Basophils # 0.1 0.0 - 0.2 01/08 [facility] HEMATOLOGY Monocytes # 1.1 0.0 - 0.8 01/08 [facility] ELECTROLYT Potassium 3.6 3.5 - 5.1 01/08 ES Lvl /2017 [facility] ELECTROLYT Chloride Lvl 111 95 - 109 06/ [place] ELECTROLYT BUN 9 7 - 22 01/08 [place] ELECTROLYT Creatinine 0.94 0.50 - 01/08 MH ES Lvl 1.40 [place] ELECTROLYT Sodium Lvl 141 135 - 145 01/08 [place] ELECTROLYT Glucose Lvl 106 70 - 99 01/08 [place] ELECTROLYT Calcium Lvl 7.9 8.5 - 10.5 01/08 [place] ELECTROLYT AGAP 13.6 10.0 - 01/08 MH ES 20.0 /2017 [place] ELECTROLYT CO2 20 24 - 32 01/08 [place] ELECTROLYT eGFR 93 01/08 Result Comment: The [facility] eGFR is calculated using the CKD-EPI formula. In most young, healthy individuals the eGFR will be >90 mL/min/1.73m2 . The eGFR declines with age. An eGFR of 60-89 may be normal in some populations, particularly the elderly, for whom the CKD-EPI formula has not been extensively validated. Use of the eGFR is not recommended in the following populations:< br/>
Sandra viduals with unstable creatinine concentration s, including patients and those with serious co-morbid conditions.<b r/>
Patie nts with extremes in muscle mass or diet.

The data above are obtained from the National Kidney Disease Education Program (NKDEP) which additionally recommends that when the eGFR is used in patients with extremes of body mass index for purposes of drug dosing, the eGFR should be multiplied by the estimated BMI. CHEM PANEL Magnesium 1.9 1.8 - 2.4 01/07 [place] CHEM PANEL Glucose Lvl 124 70 - 99 01/07 [place] CHEM PANEL BUN 17 7 - 22 01/07 [place] CHEM PANEL Sodium Lvl 143 135 - 145 01/07 [place] CHEM PANEL Potassium 4.1 3.5 - 5.1 01/07 Lvl [place] CHEM PANEL Creatinine 0.98 0.50 - 01/07 MH Lvl 1.40 [place] CHEM PANEL Chloride Lvl 116 95 - 109 01/07 [place] CHEM PANEL eGFR 88 01/07 Result Comment: The [facility] eGFR is calculated using the CKD-EPI formula. In most young, healthy individuals the eGFR will be >90 mL/min/1.73m2 . The eGFR declines with age. An eGFR of 60-89 may be normal in some populations, particularly the elderly, for whom the CKD-EPI formula has not been extensively validated. Use of the eGFR is not recommended in the following populations:< br/>
Sandra viduals with unstable creatinine concentration s, including patients and those with serious co-morbid conditions.<b r/>
Patie nts with extremes in muscle mass or diet.

The data above are obtained from the National Kidney Disease Education Program (NKDEP) which additionally recommends that when the eGFR is used in patients with extremes of body mass index for purposes of drug dosing, the eGFR should be multiplied by the estimated BMI. CHEM PANEL CO2 18 24 - 32 01/07 [place] CHEM PANEL Calcium Lvl 7.8 8.5 - 10.5 01/07 [place] CHEM PANEL AGAP 13.1 10.0 - 01/07 MH 20.0 [place] CHEM PANEL Magnesium 2.0 1.8 - 2.4 01/07 MH Lvl [place] CHEM PANEL Ketone 0.53 <=0.27 01/07 Quantitative mmol/L [place] CHEM PANEL Phosphorus 2.1 2.5 - 4.5 01/07 [place] CHEM PANEL Magnesium 2.1 1.8 - 2.4 01/07 MH Lvl [place] CHEM PANEL Calcium Lvl 8.3 8.5 - 10.5 01/07 [place] CHEM PANEL AGAP 13.7 10.0 - 01/07 MH 20.0 [place] CHEM PANEL Potassium 3.7 3.5 - 5.1 01/07 MH Lvl [place] CHEM PANEL CO2 19 24 - 32 01/07 [place] CHEM PANEL Chloride Lvl 111 95 - 109 01/07 [place] CHEM PANEL Glucose Lvl 143 70 - 99 01/07 [place] CHEM PANEL Creatinine 1.23 0.50 - 01/07 MH Lvl 1.40 [place] CHEM PANEL BUN 22 7 - 22 01/07 [place] CHEM PANEL Sodium Lvl 140 135 - 145 01/07 [place] CHEM PANEL eGFR 67 01/07 Result Comment: The [facility] eGFR is calculated using the CKD-EPI formula. In most young, healthy individuals the eGFR will be >90 mL/min/1.73m2 . The eGFR declines with age. An eGFR of 60-89 may be normal in some populations, particularly the elderly, for whom the CKD-EPI formula has not been extensively validated. Use of the eGFR is not recommended in the following populations:< br/>
Sandra viduals with unstable creatinine concentration s, including patients and those with serious co-morbid conditions.<b r/>
Patie nts with extremes in muscle mass or diet.

The data above are obtained from the National Kidney Disease Education Program (NKDEP) which additionally recommends that when the eGFR is used in patients with extremes of body mass index for purposes of drug dosing, the eGFR should be multiplied by the estimated BMI. SPECIAL Hgb A1C 10.2 <=5.6 % 01/07 CHEMISTRY /2017 [place] DRUG U Phencyc Negative Negative 01/07 SCREEN Scr *NA* [place] (01/07/18 2:11 AM) DRUG UDS Note See Note 01/07 MH SCREEN (01/07/18 2:11 AM) /2017 [place] DRUG U Cannab Scr Negative Negative 01/07 SCREEN *NA* /2017 [place] (01/07/18 2:11 AM) DRUG U Cocaine Positive Negative 01/07 SCREEN Scr *ABN* /2017 [place] (01/07/18 2:11 AM) DRUG U Benzodia Negative Negative 01/07 SCREEN Scr *NA* [place] (01/07/18 2:11 AM) DRUG U Latisha Scr Negative Negative 01/07 SCREEN *NA* [place] (01/07/18 2:11 AM) DRUG U Opiate Scr Negative Negative 01/07 SCREEN *NA* /2017 [place] (01/07/18 2:11 AM) DRUG U Amph Scr Negative Negative 01/07 SCREEN *NA* [place] (01/07/18 2:11 AM) URINE AND UA Glucose >=500 01/07 STOOL /2017 [place] URINE AND UA <=1.0 0.1 - 1.0 01/07 STOOL Urobilinogen mg/dL [place] URINE AND UA Sq Epi Occasional Few /LPF 01/07 STOOL /LPF /2017 [place] URINE AND UA Leuk Est Negative Negative 01/07 STOOL (01/07/18 2:11 AM) [place] URINE AND UA Nitrite Negative Negative 01/07 [place] (01/07/18 2:11 AM) [place] URINE AND UA Blood Negative Negative 01/07 STOOL (01/07/18 2:11 AM) [place] URINE AND UA RBC 2 0 - 2 01/07 STOOL [place] URINE AND UA Mucus Few /LPF None Seen 01/07 STOOL /LPF /2017 [place] URINE AND UA WBC 2 0 - 5 01/07 STOOL [place] URINE AND UA Hyal Cast 4 0 - 2 01/07 STOOL [place] URINE AND UA Color Yellow Yellow 01/07 STOOL *NA* /2017 [place] (01/07/18 2:11 AM) URINE AND UA Spec Grav 1.017 <=1.030 01/07 STOOL [place] URINE AND UA Turbidity Clear Clear 01/07 STOOL (01/07/18 2:11 AM) [place] URINE AND UA pH 5.0 5.0 - 8.0 01/07 STOOL [place] URINE AND UA Ketones 80 mg/dL Negative 01/07 STOOL mg/dL [place] URINE AND UA Protein Negative Negative 01/07 STOOL mg/dL mg/dL [place] URINE AND UA Bili Negative Negative 01/07 STOOL *NA* /2017 [place] (01/07/18 2:11 AM) CHEM PANEL Procalcitoni 0.13 0.00 - 01/07 n Lvl 0.10 [place] CARDIAC Troponin-I <0.02 0.00 - 01/07 ENZYMES 0.40 [place] CARDIAC Total CK 54 12 - 191 01/07 ENZYMES [place] CARDIAC CK MB 0.6 0.5 - 3.6 01/07 ENZYMES [place] CARDIAC CK MB Index 1.1 0.0 - 2.5 01/07 ENZYMES [place] CHEM PANEL Lactic Acid 5.2 0.5 - 2.2 01/07 Result MH Lvl /2018 Comment: [place] Critical Result(s) called to Mojgan Paul at [id number]_ by_JJ. Read back OK. CHEM PANEL Magnesium 2.4 1.8 - 2.4 01/07 MH Lvl /2017 [place] CHEM PANEL Phosphorus 4.0 2.5 - 4.5 01/07 [place] CHEM PANEL Ketone 4.44 <=0.27 01/07 Quantitative mmol/L /2017 [place] CHEM PANEL eGFR 42 01/07 Result Comment: The [place] eGFR is calculated using the CKD-EPI formula. In most young, healthy individuals the eGFR will be >90 mL/min/1.73m2 . The eGFR declines with age. An eGFR of 60-89 may be normal in some populations, particularly the elderly, for whom the CKD-EPI formula has not been extensively validated. Use of the eGFR is not recommended in the following populations:< br/>
Sandra viduals with unstable creatinine concentration s, including patients and those with serious co-morbid conditions.<b r/>
Patie nts with extremes in muscle mass or diet.

The data above are obtained from the National Kidney Disease Education Program (NKDEP) which additionally recommends that when the eGFR is used in patients with extremes of body mass index for purposes of drug dosing, the eGFR should be multiplied by the estimated BMI. CHEM PANEL Globulin 4.2 2.7 - 4.2 01/07 [place] CHEM PANEL A/G Ratio 1.1 0.7 - 1.6 01/07 [place] CHEM PANEL B/C Ratio 15 6 - 25 01/07 [place] CHEM PANEL AGAP 24.5 10.0 - 01/07 MH 20.0 2018 [place] CHEM PANEL AST 30 0 - 37 01/07 [place] CHEM PANEL Alk Phos 103 39 - 136 01/07 [place] CHEM PANEL Bili Total 0.6 0.2 - 1.3 01/07 [place] CHEM PANEL Glucose Lvl 332 70 - 99 01/07 [place] CHEM PANEL Albumin Lvl 4.5 3.5 - 5.0 01/07 [place] CHEM PANEL Total 8.7 6.4 - 8.4 01/07 Protein [place] CHEM PANEL Calcium Lvl 9.5 8.5 - 10.5 01/07 [place] CHEM PANEL CO2 14 24 - 32 01/07 [place] CHEM PANEL Chloride Lvl 103 95 - 109 01/07 [place] CHEM PANEL Potassium 4.5 3.5 - 5.1 01/07 MH Lvl /2017 [place] CHEM PANEL BUN 27 7 - 22 01/07 [place] CHEM PANEL Sodium Lvl 137 135 - 145 01/07 [place] CHEM PANEL Creatinine 1.80 0.50 - 01/07 MH Lvl 1.40 [place] CHEM PANEL ALT 44 0 - 65 01/07 [place] CHEM PANEL Lipase Lvl 358 73 - 393 01/07 [place] HEMATOLOGY PTT 29.2 22.9 - 01/07 MH 35.8 [place] HEMATOLOGY PT 13.1 12.0 - 01/07 MH 14.7 [place] HEMATOLOGY INR 0.99 0.85 - 01/07 MH 1.17 [place] HEMATOLOGY MCHC 34.3 32.0 - 01/07 MH 36.0 [place] HEMATOLOGY MCH 30.6 27.0 - 01/07 MH 31.0 [place] HEMATOLOGY MPV 7.2 7.4 - 10.4 01/07 [place] HEMATOLOGY RDW 14.9 11.5 - 01/07 MH 14.5 [place] HEMATOLOGY Platelet 492 133 - 450 01/07 [place] HEMATOLOGY MCV 89.2 80.0 - 01/07 MH 94.0 [place] HEMATOLOGY Hct 43.9 42.0 - 01/07 MH 54.0 [place] HEMATOLOGY Hgb 15.1 14.0 - 01/07 MH 18.0 [place] HEMATOLOGY RBC 4.92 4.70 - 01/07 MH 6.10 [place] HEMATOLOGY WBC 26.5 3.7 - 10.4 01/07 [place] HEMATOLOGY Lymphocytes 2.2 1.0 - 5.5 01/07 MH /2017 [place] HEMATOLOGY Segs-Bands # 22.4 1.5 - 8.1 01/07 [place] HEMATOLOGY Basophils # 0.2 0.0 - 0.2 01/07 [place] HEMATOLOGY Monocytes # 1.7 0.0 - 0.8 01/07 [place] HEMATOLOGY Plt Morph Normal 01/07 (01/06/18 11:15 PM) [place] and HEMATOLOGY Segs 84.6 45.0 - 01/07 MH 75.0 /2017 [place] HEMATOLOGY Lymphocytes 8.3 20.0 - 01/07 MH 40.0 [place] HEMATOLOGY Monocytes 6.5 2.0 - 12.0 01/07 [place] HEMATOLOGY Basophils 0.6 0.0 - 1.0 01/07 [place] HEMATOLOGY RBC Morph Normal 01/07 (01/06/18 11:15 PM) [place] [facility] TOXICOLOGY Ethanol Lvl <3 01/07 [place] TOXICOLOGY Etoh (%) <0.003 01/07 [place] Pathology Reports No Data Provided for This Section Diagnostic Reports Report Value Date Source Chest 1view DX CHEST RADIOGRAPH SINGLE VIEW 01/06/2018 [facility] ivana Bansal INDICATION: Generalized weakness COMPARISON: None IMPRESSION: The lungs are hyperexpanded, flattening of the diaphragms. There is mild scarring at the lung apices. No consolidation, pleural effusion, or pneumotho rax are visible. Cardiac silhouette and pulmonary vasculature are within normal limits. SL:[id number] Consultation Notes No Data Provided for This Section Discharge Summaries No Data Provided for This Section History and Physicals No Data Provided for This Section Vital Signs Vital Sign Value Date Comments Source Heart Rate 90 01/08/2018 [facility] Temperature Oral (F) 98.1 F 01/08/2018 [place] Systolic (mm Hg) 147 01/08/2018 [place] Diastolic (mm Hg) 81 01/08/[address] [facility] st Respitory Rate 16 01/08/2018 [facility] Temperature Oral (F) 98.4 F 01/08/2018 [place] Heart Rate 89 01/08/2018 [facility] Respitory Rate 16 01/08/2018 [place] Systolic (mm Hg) 154 01/08/2018 [place] Diastolic (mm Hg) 78 01/08/2018 [facility] st Respitory Rate 16 01/08/2018 [place] Systolic (mm Hg) 149 01/08/2018 [place] Diastolic (mm Hg) 77 01/08/[address] [facility] [address] Heart Rate 90 01/08/2018 [facility] Temperature Oral (F) 98 F 01/08/2018 [place] Height 167.64 cm 01/07/2018 [facility] BMI Calculated 15.51 01/07/2018 [facility] Weight 43.6 01/07/2018 [facility] Systolic (mm Hg) 145 01/07/2018 [facility] Diastolic (mm Hg) 70 01/07/2018 [place] Respitory Rate 22 01/07/2018 [facility] Heart Rate 98 01/07/2018 [facility] Temperature Oral (F) 97.6 F 01/07/2018 [facility] Heart Rate 100 01/07/2018 [facility] Systolic (mm Hg) 140 01/07/2018 [facility] Diastolic (mm Hg) 80 01/07/2018 [place] Respitory Rate 20 01/07/2018 [facility] Temperature Oral (F) 98.3 F 01/07/2018 [facility] Heart Rate 104 01/07/2018 [facility] Respitory Rate 20 01/07/2018 [facility] Systolic (mm Hg) 138 01/07/2018 [facility] Diastolic (mm Hg) 81 01/07/2018 [place] Height 175.26 cm 01/07/2018 [facility] BMI Calculated 16.28 01/07/2018 [facility] Weight 50 01/07/2018 [facility] Temperature Oral (F) 98.9 F 01/07/2018 [facility] Encounters Location Location Encounter Encounter Reason Attending ADM DC Stat us Source Details Type Number For Provider Date Date [facility] [id number] [place] 01/07 01/07 [place] [facility] Zenaida /2017 [facility] [id number] Alisha 01/07 01/08 [facility] Luis Miguel /2017 [facility] Procedures Procedure Code Date Perfomer Comments Source Cardiac catheter [id number] stents [facility]sup>[facility]< /sup> Assessment and Plan No Data Provided for This Section Plan of Care No Data Provided for This Section Social History Social History Date Source Social History TypeResponse 01/07/2018 [facility] Substance Abuse Use: Current. Type: Marijuana. Alcohol Current Smoking Status Current every day smoker; Type: Cigarett es; Exposure to Tobacco Smoke None; Cigarette Smoking Last 365 Days Yes; Reg Smoking Cessation Counseling No entered on: 01/06/18 Social History TypeResponse 01/07/2018 [facility] Substance Abuse Use: Current. Type: Marijuana. Alcohol Current Smoking Status Current every day smoker; Type: Cigarett es; Exposure to Tobacco Smoke None; Cigarette Smoking Last 365 Days Yes; Reg Smoking Cessation Counseling No entered on: 01/06/18 Family History No Data Provided for This Section Advance Directives No Data Provided for This Section Functional Status No Data Provided for This Section
--- OUTSIDE RECORDS SUMMARY | 2019-12-03 05:11 | XMS REPORT ---
:1965 Author Organization [facility] t Address [address] [place] [address] Dr. Landin [address] [place] [address] Care Team Providers Name Role Phone Unavailable Unavailable Unavailable Problems This patient has no known problems. Allergies, Adverse Reactions, Alerts This patient has no known allergies or adverse reactions. Medications This patient has no known medications.
--- OUTSIDE RECORDS SUMMARY | 2019-12-03 05:12 | XMS REPORT | Summary of Care ---
:1965 Author Organization [facility] Address [address] [place] [id number] Care Team Providers Name Role Phone Jf Potter MD Unavailable Andrea Beasley Primary Care Provider Reason for Visit Reason Comments Notification Encounter Details Date Type Department Care Team Description 02/27/2019 Telephone [facility] Salena Beasley FNP Notification [facility] ic [address] [facility] [address] [place] [address] [place] [address] Allergies No Known Allergiesdocumented as of this encounter (statuses as of 02/27/2019) Medications Medication Sig Dispensed Refills Start Date [...] tabletIndications: mouth daily. Coronary artery disease involving [place] coronary artery of [place] heart without angina pectoris METOPROLOL TARTRATE 25 TAKE ONE TABLET 60 tablet 0 12/01/2018 Active mg tabletIndications: BY MOUTH TWICE A Essential hypertension, DAY Coronary artery disease involving [place] coronary artery of [place] heart without angina pectoris ATORVASTATIN 80 mg TAKE ONE TABLET 30 tablet 0 12/01/2018 Active tabletIndications: BY MOUTH AT Coronary artery disease BEDTIME involving [place] coronary artery of [place] heart without angina pectoris ondansetron 4 mg [...] as of this encounter (statuses as of 02/27/2019) Active Problems Problem Noted Date Type 1 diabetes mellitus with complication 05/27/2017 CAD (coronary artery disease), [place] coronary artery 12/09/2016 documented as of this encounter (statuses as of 02/27/2019) Immunizations Name Administration Dates Next Due Influenza [...] Cardiology Avtar Potter MD [address] [place] [phone] Health Maintenance Due Date Last Done Comments [...] Results Not on filedocumented in this encounter Insurance Payer Benefit Plan Subscriber ID Effective Phone Address Typ e / Group Dates [place] [id number] 2018-Prese [phone] [facility] [address] [place] [address] [place] [address] [place] [id number] 2018-Pres [phone] [facility] [address] [place] [address] documented as of this encounter
--- OUTSIDE RECORDS SUMMARY | 2019-12-03 05:12 | XMS REPORT | Summary of Care ---
:1965 Author Organization [facility] Address [address] [place] [address] Care Team Providers Name Role Phone Jf Potter MD Unavailable Andrea Beasley Primary Care Provider Reason for Visit Reason Comments Rx Concern/Question Encounter Details Date Type Department Care Team Description 03/01/2019 Telephone [facility] Salena Beasley FNP Rx Concern/Question [facility] 301 [facility] [address] [place] [address] [place] [phone] Allergies No Known Allergiesdocumented as of this encounter (statuses as of 03/01/2019) Medications Medication Sig Dispensed Refills Start Date [...] tabletIndications: mouth daily. Coronary artery disease involving [place] coronary artery of [place] heart without angina pectoris METOPROLOL TARTRATE 25 TAKE ONE TABLET 60 tablet 0 12/01/2018 Active mg tabletIndications: BY MOUTH TWICE A Essential hypertension, DAY Coronary artery disease involving [place] coronary artery of [place] heart without angina pectoris ATORVASTATIN 80 mg TAKE ONE TABLET 30 tablet 0 12/01/2018 Active tabletIndications: BY MOUTH AT Coronary artery disease BEDTIME involving [place] coronary artery of [place] heart without angina pectoris ondansetron 4 mg [...] as of this encounter (statuses as of 03/01/2019) Active Problems Problem Noted Date Type 1 diabetes mellitus with complication 05/27/2017 CAD (coronary artery disease), [place] coronary artery 12/09/2016 documented as of this encounter (statuses as of 03/01/2019) Immunizations Name Administration Dates Next Due Influenza [...] Potter MD [address] [place] [address] [place] [phone] Health Maintenance Due Date Last Done [...] Group Dates [employer] [place] [id number] 2018-Prese [phone] [facility] [address] [facility] [address] [place] [address] [place] [id number] 2018-Pres [phone] [facility] PRIMARY CARE ent [address] [place] [address] documented as of this encounter
--- OUTSIDE RECORDS SUMMARY | 2019-12-03 05:12 | XMS REPORT | Summary of Care ---
:1965 Author Organization [facility] - Health Address [address] [place] [id number] Care Team Providers Name Role Phone Jf Potter MD Unavailable Andrea Beasley Primary Care Provider Encounter Details Date Type Department Care Team Description 03/23/2019 Orders Only [facility] Doctor Unassigned, No 301 [facility] [place] [address] [address] [place] [address] Allergies No Known Allergiesdocumented as of this encounter (statuses as of 03/23/2019) Medications Medication Sig Dispensed Refills Start Date [...] tabletIndications: mouth daily. Coronary artery disease involving [place] coronary artery of [place] heart without angina pectoris METOPROLOL TARTRATE 25 TAKE ONE TABLET 60 tablet 0 12/01/2018 Active mg tabletIndications: BY MOUTH TWICE A Essential hypertension, DAY Coronary artery disease involving [place] coronary artery of [place] heart without angina pectoris ATORVASTATIN 80 mg TAKE ONE TABLET 30 tablet 0 12/01/2018 Active tabletIndications: BY MOUTH AT Coronary artery disease BEDTIME involving [place] coronary artery of [place] heart without angina pectoris ondansetron 4 mg [...] as of this encounter (statuses as of 03/23/2019) Active Problems Problem Noted Date Type 1 diabetes mellitus with complication 05/27/2017 CAD (coronary artery disease), [place] coronary artery 12/09/2016 documented as of this encounter (statuses as of 03/23/2019) Immunizations Name Administration Dates Next Due Influenza [...] Cardiology Avtar Potter MD [address] [place] [phone] Health Maintenance Due Date Last Done Comments PNEUMOCOCCAL 0-64 YEARS COMBINED 1970 SERIES (1 of 1 - PPSV23) EYE EXAM 1974 FOOT EXAM 1982 DTaP,Tdap,and Td Vaccines (1 - 1983 Tdap) COLONOSCOPY 2014 Zoster Recombinant Vaccine 2014 (SHINGRIX) (1 of 2) INFLUENZA VACCINE (#1) 2019 08/30/2017 HgA1C 05/19/2019 11/17/2018, 11/19/2016, 08/28/2003 LDL-C 11/18/2019 11/17/2018, 12/08/2016, 11/19/2016, Additional history exists URINE MICROALBUMIN 11/18/2019 11/17/2018, 12/08/2016 CREATININE (SERUM) 01/09/2020 01/08/2019, 11/17/2018, 12/10/2016, Additional history exists HEPATITIS C (HCV) SCREEN Completed 09/22/2016 documented as of this encounter Procedures Procedure Name Priority Date/Time Associated Diagnosis Comme nts MEDICATION HISTORY Routine 03/23/2019 12:01 AM RECONCILIATION FORM CDT documented in this encounter Results Not on filedocumented in this encounter Insurance Payer Benefit Plan Subscriber ID Effective Phone Address Typ e / Group Dates [employer] [place] [place] [id number] 2018-Prese [phone] [facility] C I H [address] [place] [address] [place] [address] [place] [id number] 2018-Pres [phone] [facility] PRIMARY CARE ent [address] [place] [address] documented as of this encounter
--- OUTSIDE RECORDS SUMMARY | 2019-12-03 05:13 | XMS REPORT | Summary of Care ---
:1965 Author Organization [facility] - Health Address [address] [place] [address] Care Team Providers Name Role Phone Jf Potter MD Unavailable Pcp, Does Not Have A Primary Care Provider Reason for Referral Radiology Services (STAT) Status Reason Specialty Diagnoses / Referred By Referred To Procedures Contact Contact New Request Diagnostic Diagnoses Chest pain, unspecified type Renay Canales Radiology Procedures XR CHEST 1 JONNY Jaquez MD [address] [facility] [id number] [place] [address] Reason for Visit Reason Comments Chest Pain Auth/Cert Status Reason Specialty Diagnoses / Referred By Referred To Procedures Contact Contact Emergency Medicine [facility] Em ergency Dept [address] [place] [address] [place] [address] Fax: Encounter Details Date Type Department Care Team Description 08/17/2019 Emergency ADC-Emergency Renay Canales S, Chest wal l pain (Primary Dx); Department Chest pain, unspecified type; [address] [place] [address] [facility] Nausea and vomiting in adult patient; [place] [address] [id number] Uncontrolled type 1 diabetes mellitus wi th hyperglycemia; [phone] [place], [place] Hypertension, unspecified type [id number] Allergies No Known Allergiesdocumented as of this encounter (statuses as of 08/17/2019) Medications Medication Sig Dispensed Refills Start Date [...] tabletIndications: mouth daily. Coronary artery disease involving [place] coronary artery of [place] heart without angina pectoris METOPROLOL TARTRATE 25 TAKE ONE TABLET 60 tablet 0 12/01/2018 Active mg tabletIndications: BY MOUTH TWICE A Essential hypertension, DAY Coronary artery disease involving [place] coronary artery of [place] heart without angina pectoris ATORVASTATIN 80 mg TAKE ONE TABLET 30 tablet 0 12/01/2018 Active tabletIndications: BY MOUTH AT Coronary artery disease BEDTIME involving [place] coronary artery of [place] heart without angina pectoris ondansetron 4 mg [...] Get blood work done April 26, 2019 ondansetron (ZOFRAN) 4 Take 1 tablet by 12 tablet 0 08/17/2019 Active mg tabletIndications: mouth every 8 Chest wall pain, Nausea (eight) hours as and vomiting in adult needed for Nausea patient and Vomiting (N/V). traMADol (ULTRAM) 50 mg Take 1 tablet by 20 tablet 0 0 Active tabletIndications: mouth every 6 Chest wall pain, Nausea (six) hours as and vomiting in adult needed for Pain patient (scale 7-10). documented as of this encounter (statuses as of 08/17/2019) Active Problems Problem Noted Date Type 1 diabetes mellitus with complication 05/27/2017 CAD (coronary artery disease), [place] coronary artery 12/09/2016 documented as of this encounter (statuses as of 08/17/2019) Immunizations Name Administration Dates Next Due Influenza [...] of this encounter Last Filed Vital Signs Vital Sign Reading Time Taken Comments Blood Pressure 156/82 08/17/2019 6:00 AM NON DESTRUCTIVE EVALUATION SPECIALIST Pulse 91 08/17/2019 6:00 AM NON DESTRUCTIVE EVALUATION SPECIALIST Temperature - - Respiratory Rate 15 08/17/2019 6:00 AM NON DESTRUCTIVE EVALUATION SPECIALIST Oxygen Saturation 97% 08/17/2019 6:00 AM NON DESTRUCTIVE EVALUATION SPECIALIST Inhaled Oxygen Concentration - - Weight 49.9 kg (110 lb) 08/17/2019 4:18 AM NON DESTRUCTIVE EVALUATION SPECIALIST Height 167.6 cm (5' 6") 08/17/2019 4:18 AM NON DESTRUCTIVE EVALUATION SPECIALIST Body Mass Index 17.75 08/17/2019 4:18 AM NON DESTRUCTIVE EVALUATION SPECIALIST documented in this encounter Discharge Instructions Renay Li MD - 08/17/2019 DIAGNOSIS Diagnoses that have been ruled out: None Diagnoses that are still under consideration: None Final diagnoses: Chest pain, unspecified type Chest wall pain Nausea and vomiting in adult patient Uncontrolled type 1 diabetes mellitus with hyperglycemia Hypertension, unspecified type NO LIFE-THREATENING FINDINGS ON TODAY'S EXAM. PROCEDURES IN THE ER TODAY: Orders Placed This Encounter Procedures XR CHEST 1 VW CBC WITH DIFF COMP. METABOLIC PANEL (15983) LIPASE TROPONIN I PROTHROMBIN TIME / INR CBC WITH DIFFERENTIAL MEDICATIONS ADMINISTERED IN THE ER TODAY AND DISCHARGE MEDICATIONS: Orders Placed This Encounter Medications FENTanyl PF (SUBLIMAZE (PF)) injection 50 mcg ondansetron (ZOFRAN (PF)) injection 4 mg NaCl 0.9% (NS) IV infusion 1,000 mL insulin regular human (HUMULIN R) injection 6 Units ondansetron (ZOFRAN) 4 mg tablet traMADol (ULTRAM) 50 mg tablet FOLLOW-UP RECOMMENDATIONS: RECOMMEND FOLLOW-UP WITH YOUR PRIMARY CARE PROVIDER LATER THIS MORNING DISCUSSED MAY FOLLOW-UP WITH A PROVIDER OF YOUR CHOICE, SUCH : 1. A PHYSICIAN OF YOUR CHOICE 2. [facility], . LOCATIONS IN [facility] [place] 3. [facility], [address] [place], [place]; [phone] OR, IF YOU WISH TO FOLLOW-UP WITHIN THE [facility], MAY TRY THESE OPTIONS (CLINIC APPOINTMENTS AVAILABLE ON RCLC-HK-PRDT BASIS): 1. SCHEDULE AN APPOINTMENT ONLINE AT WWW[facility] 2. OR CALL THE [facility] ACCESS CENTER AT OR 3. OR CALL YOUR [facility] PHYSICIAN'S OFFICE DIRECTLY IF YOU ARE ALREADY AN ESTABLISHED [facility] PATIENT. RETURN TO ER FOR WORSENING OF SYMPTOMS documented in this encounter Plan of Treatment Health Maintenance Due Date Last Done Comments PNEUMOCOCCAL 0-64 YEARS COMBINED 1970 SERIES (1 of 1 - PPSV23) EYE EXAM 1974 DTaP,Tdap,and Td Vaccines (1 - 1975 Tdap) FOOT EXAM 1982 COLONOSCOPY 2014 Zoster Recombinant Vaccine 2014 (SHINGRIX) (1 of 2) INFLUENZA VACCINE (#1) 2019 08/30/2017 LUNG CANCER SCREEN: Recommended 2019 for age 55-80 with 30 + pack year history HgA1C 05/19/2019 11/17/2018, 11/19/2016, 08/28/2003 LDL-C 11/18/2019 11/17/2018, 12/08/2016, 11/19/2016, Additional history exists URINE MICROALBUMIN 11/18/2019 11/17/2018, 12/08/2016 CREATININE (SERUM) 01/09/2020 01/08/2019, 11/17/2018, 12/10/2016, Additional history exists HEPATITIS C (HCV) SCREEN Completed 09/22/2016 documented as of this encounter Procedures Procedure Name Priority Date/Time Associated Diagnosis Comme nts CBC WITH DIFFERENTIAL STAT 08/17/2019 4:57 Chest pain, Re sults for this AM NON DESTRUCTIVE EVALUATION SPECIALIST unspecified type procedure a re in the results section. PROTHROMBIN TIME / STAT 08/17/2019 4:57 Chest pain, Resul ts for this INR AM NON DESTRUCTIVE EVALUATION SPECIALIST unspecified type procedure a re in the results section. CBC WITH DIFFERENTIAL STAT 08/17/2019 4:57 Chest pain, Re sults for this AM NON DESTRUCTIVE EVALUATION SPECIALIST unspecified type procedure a re in the results section. COMP. METABOLIC PANEL STAT 08/17/2019 4:57 Chest pain, Re sults for this (40559) AM NON DESTRUCTIVE EVALUATION SPECIALIST unspecified type procedure a re in the results section. TROPONIN I STAT 08/17/2019 4:57 Chest pain, Results for this AM NON DESTRUCTIVE EVALUATION SPECIALIST unspecified type procedure a re in the results section. LIPASE STAT 08/17/2019 4:57 Chest pain, Results for this AM NON DESTRUCTIVE EVALUATION SPECIALIST unspecified type procedure a re in the results section. XR CHEST 1 VW STAT 08/17/2019 4:36 Chest pain, Results fo r this AM NON DESTRUCTIVE EVALUATION SPECIALIST unspecified type procedure a re in the results section. documented in this encounter Results CBC WITH DIFFERENTIAL (08/17/2019 4:57 AM NON DESTRUCTIVE EVALUATION SPECIALIST) Pathologist Sig nature WBC 12.39 (H) 4.20 - 10.70 [facility] 10*3/L [facility] RBC 4.87 4.26 - 5.52 [facility] 10*6/L [facility] HGB 14.5 12.2 - 16.4 [facility] g/dL [facility] HCT 44.0 38.4 - 49.3 % [facility] MCV 90.3 81.7 - 95.6 fL [facility] MCH 29.8 26.1 - 32.7 pg [facility] MCHC 33.0 31.2 - 35.0 [facility] g/dL [facility] RDW-SD 42.9 38.5 - 51.6 fL [facility] RDW-CV 13.1 12.1 - 15.4 % [facility] PLT 380 (H) 150 - 328 [facility] 10*3/L [facility] MPV 8.9 (L) 9.8 - 13.0 fL [facility] NRBC/100 WBC 0.0 0.0 - 10.0 /100 [facility] WBCs [facility] NRBC x10^3 <0.01 10*3/L [facility] GRAN MAT (NEUT) % 76.7 % [facility] IMM GRAN % 0.70 % [facility] LYMPH % 13.1 % [facility] MONO % 5.7 % [facility] EOS % 3.2 % [facility] BASO % 0.6 % [facility] GRAN MAT x10^3(ANC) 9.50 (H) 1.99 - 6.95 [facility] 10*3/uL [facility] IMM GRAN x10^3 0.09 (H) 0.00 - 0.06 [facility] 10*3/uL [facility] LYMPH x10^3 1.62 1.09 - 3.23 [facility] 10*3/uL [facility] MONO x10^3 0.71 0.36 - 1.02 [facility] 10*3/uL [facility] EOS x10^3 0.40 0.06 - 0.53 [facility] 10*3/uL [facility] BASO x10^3 0.07 0.01 - 0.[address]3/uL [facility] Specimen Blood - VENOUS Performing Organization Address City/[facility]/Zipcode Phone Number [facility] CLIA: [id number], [address] [place] [address] PROTHROMBIN TIME / INR (08/17/2019 4:57 AM NON DESTRUCTIVE EVALUATION SPECIALIST) Pathologist [facility] PROTIME PATIENT 11.6 (L) 12.0 - 14.7 [facility] LABORATORY INR 0.9Comment: Normal [facility] INR <1.1; [facility] Therapeutic range LABORATORY 2.0 to 3.0 or 2.5 to 3.5, depending upon the indications. Specimen Blood - VENOUS Performing Organization Address City/[facility] Phone Number [facility] CLIA: [id number], [address] [place] [address] TROPONIN I (08/17/2019 4:57 AM NON DESTRUCTIVE EVALUATION SPECIALIST) Pathologist [place] nature TROPONIN I 0.004 <=0.034 ng/mL [facility] Specimen Blood - VENOUS Narrative Performed At Equal or Less than 0.034 ng/ml---Normal [facility] Note: Cardiac troponin begins to rise 3-4 hours after the onset of ischemia. Repeat in 4-6 hours if the sample was drawn within 3-4 hours of the onset of the symptom and found normal. Between 0.035 and 0.120 ng/mL--- Borderline. Questionable myocardial injury or necros is Note: Serial measurement may be necessary to confirm or exclude the diagnosis of myocardial injury or necrosis; Clinical correlation (symptoms, EKGs, imaging studies, and others) required; Repeat in 4-6 hours if clinically indicated. Equal or Higher than 0.121 ng/mL---Abnormal. Myocardial Injury or Necrosis Likely Biotin has been reported to cause a negative bias, interpret results relative to patient's use of biotin. Performing Organization Address City/[facility] Cent[facility]ode Phone Number [facility] CLIA: [id number], [address] [place] [address] LIPASE (08/17/2019 4:57 AM NON DESTRUCTIVE EVALUATION SPECIALIST) [facility] Tricentis LIPASE 96 0 - 220 U/L [facility] Specimen Blood - VENOUS Performing Organization Address [facility] Cent[facility]ofl Phone Number [facility] CLIA: [id number], [address] [place] [address] COMP. METABOLIC PANEL (46080) (08/17/2019 4:57 AM NON DESTRUCTIVE EVALUATION SPECIALIST) [facility] [employer] NA 138 135 - 145 [facility] mmol/L [facility] K 4.6 3.5 - 5.0 [facility] mmol/L [facility] CL 98 98 - 108 mmol/L [facility] CO2 TOTAL 29 23 - 31 mmol/L [facility] AGAP 11 2 - 16 [facility] BUN 12 7 - 23 mg/dL [facility] GLUCOSE 319 (H) 70 - 110 mg/dL [facility] CREATININE 0.71 0.60 - 1.25 [facility] mg/dL HOSPITAL LABORATORY TOTAL BILI 0.5 0.1 - 1.1 mg/dL [facility] CALCIUM 10.1 8.6 - 10.6 [facility] mg/dL HOSPITAL LABORATORY T PROTEIN 8.7 (H) 6.3 - 8.2 g/dL [facility] ALBUMIN 5.0 3.5 - 5.0 g/dL [facility] ALK PHOS 126 (H) 34 - 122 U/L [facility] ALTv 22 5 - 50 U/L [facility] AST(SGOT) 26 13 - 40 U/L [facility] eGFR Calculation 115.2 mL/min/1.73m2 [facility] ([facility] [place]) eGFR Calculation 139.6 mL/min/1.73m2 [facility] ([facility]) [facility] Specimen Blood - VENOUS Narrative Performed At Association of Glomerular Filtration Rate (GFR) [facility] and Staging of Kidney Disease* + + +- + | GFR (mL/min/1.73 m2) | With Kidney Damage | Without Kidney Damage + + +- + | >90 | Stage one | Normal + + +- + | 60-89 | Stage two | Decreased GFR + + +- + | 30-59 | Stage three | Stage three + + +- + | 15-29 | Stage four | Stage four + + +- + | <15 (or dialysis) | Stage five | Stage five + + +- + *Each stage assumes the associated GFR level has been in effect for at least three months. Stages 1 to 5, with or without kidney disease, indicate chronic kidney disease. Notes: Determination of stages one and two (with eGFR >59mL/min/1.73 m2) requires estimation of kidney damage for at least three months as defined by structural or functional abnormalities of the kidney, manifested by either: Pathological abnormalities or Markers of kidney damage (including abnormalities in the composition of the blood or urine or abnormalities in imaging tests). Performing Organization Address City/State/Zipcode Phone Number [facility] CLIA: [id number], [address] [place] [address] 15 [facility] XR CHEST 1 VW (08/17/2019 4:36 AM NON DESTRUCTIVE EVALUATION SPECIALIST) Specimen Impressions Performed At No acute cardiopulmonary disease PACS/VR/DOSE RL: [id number] AFC: [id number] End of report 4 :46 AM Narrative Performed At ORDERING CLINICIAN: RENAY CANALES PACS/VR/DOSE TECHNIQUE: Single view of the chest INDICATION: Chest pain COMPARISON: None DISCUSSION: The lungs are clear. The cardiac silhoue tte is within normal limits. The airway is midline. The mediastinal c ontour is normal. Procedure Note Ut, Radiant Results Inft User - 2019 4:49 AM NON DESTRUCTIVE EVALUATION SPECIALIST ORDERING CLINICIAN: RENAY CANALES TECHNIQUE: Single view of the chest INDICATION: Chest pain COMPARISON: None DISCUSSION: The lungs are clear. The cardiac silhoue tte is within normal limits. The airway is midline. The mediastinal c ontour is normal. IMPRESSION No acute cardiopulmonary disease RL: [id number] AFC: [id number] End of report Performing Organization Address City/State/Zipcode Phone Number PACS/VR/DOSE documented in this encounter Visit Diagnoses Diagnosis Chest wall pain - Primary Painful respiration Chest pain, unspecified type Nausea and vomiting in adult patient Nausea with vomiting Uncontrolled type 1 diabetes mellitus wi th hyperglycemia Hypertension, unspecified type documented in this encounter Administered Medications Medication Order MAR Action Action Date Dose Rate Site NaCl 0.9% (NS) IV infusion New Bag 08/17/2019 5:03 AM NON DESTRUCTIVE EVALUATION SPECIALIST 1,000 m L 999 mL/hr 1,000 mL at 999 mL/hr, Intravenous, CONTINUOUS, Starting Beverley 08/17/19 at 0530, Until Discontinued, Routine Medication Order MAR Action Action Date Dose Rate Site FENTanyl PF (SUBLIMAZE (PF)) Given 08/17/2019 5:01 AM NON DESTRUCTIVE EVALUATION SPECIALIST 50 mc g injection 50 mcg 50 mcg, Slow IV Push, ONCE, 1 dose, Beverley 08/17/19 at 0530, Routine insulin regular human (HUMULIN R) Given 08/17/2019 6:17 AM NON DESTRUCTIVE EVALUATION SPECIALIST 6 Units Abdomen-SC injection 6 Units 6 Units, Subcutaneous, ONCE, 1 dose, Beverley 08/17/19 at 0715, Routine ondansetron (ZOFRAN (PF)) injection 4 mg Given 08/17/2019 5:01 AM NON DESTRUCTIVE EVALUATION SPECIALIST 4 mg 4 mg, Slow IV Push, ONCE, 1 dose, Beverley 08/17/19 at 0530, MACKENZIE documented in this encounter Insurance Payer Benefit Plan / Subscriber ID Effective Phone Address T ype Group Dates MEDICAID MEDICAID SSI PENDING 2019-Pres [address] [place] [address] documented as of this encounter Advance Directives Name Relationship Healthcare Agent Communication Relationship Nick Elizondo Father Primary healthcare agent
--- OUTSIDE RECORDS SUMMARY | 2019-12-03 05:16 | XMS REPORT | Summary of Care ---
:1965 Author Organization [facility] - [facility] Address [address] [place] [address] Care Team Providers Name Role Phone Jf Potter MD Unavailable Pcp, Does Not Have A Primary Care Provider Reason for Visit Reason Comments Transition Of Care Encounter Details Date Type Department Care Team Description 09/14/2019 Transition of Care [facility] Rebecca Boateng Transition Of Care [facility]- [address] [place] [id number] Allergies No Known Allergiesdocumented as of this encounter (statuses as of 09/29/2019) Medications Medication Sig Dispensed Refills Start Date End Date Status aspirin 81 mg chewable Take 81 mg by 0 Active tablet mouth daily. nitroglycerin 0.[address] 1 tablet 1 Bottle 2 11/03/2016 Active sublingual tablet under the tongue every 5 (five) minutes as needed for Chest pain. clopidogrel 75 mg Take 1 tablet by 30 tablet 0 10/27/2018 Active tabletIndications: mouth daily. Coronary artery disease involving [place] coronary artery of [place] heart without angina pectoris ATORVASTATIN 80 mg TAKE ONE TABLET BY 30 tablet 0 12/01/2018 Active tabletIndications: MOUTH AT BEDTIME Coronary artery disease involving [place] coronary artery of [place] heart without angina pectoris lisinopril 5 mg tablet Take 5 mg by mouth 0 Active 2 (two) times daily. ezetimibe 10 mg tablet Take 1 tablet by 30 tablet 5 02/22/2019 Active mouth daily. Get blood work done April 26, 2019 metoprolol tartrate 25 Take 0.5 tablets 30 tablet 3 09/13/2019 Active mg tabletIndications: by mouth 2 (two) Diabetic ketoacidosis times daily. without coma associated with type 1 diabetes mellitus insulin NPH 100 inject 10 Units 5 mL 3 09/14/2019 Active unit/mL under the skin injectionIndications: every morning. Diabetic ketoacidosis without coma associated with type 1 diabetes mellitus insulin NPH 100 inject 6 Units 3 mL 3 09/13/2019 Active unit/mL under the skin injectionIndications: every evening. Diabetic ketoacidosis without coma associated with type 1 diabetes mellitus insulin regular human inject 3 Units 3 mL 3 09/13/2019 Active 100 unit/mL under the skin 2 injectionIndications: (two) times daily Diabetic ketoacidosis before breakfast without coma and dinner. associated with type 1 diabetes mellitus documented as of this encounter (statuses as of 09/29/2019) Active Problems Problem Noted Date E44.0 Moderate protein calorie malnutrition 09/11/2019 Diabetic ketoacidosis 09/10/2019 Type 1 diabetes mellitus with complication 05/27/2017 CAD (coronary artery disease), [place] coronary artery 12/09/2016 documented as of this encounter (statuses as of 09/29/2019) Immunizations Name Administration Dates Next Due Influenza Virus Vaccine 08/30/2017 Influenza Virus Vaccine Quad .5 mL IM 09/13/2019 (Deferred: - cannot wait 6+ MO for vaccine) Pneumococcal Polysaccharide, PPSV23 09/13/2019 (Deferred: - cannot wait (PNEUMOVAX) for vaccine) documented as of this encounter Social History [...] filedocumented in this encounter Plan of Treatment Health [...] 55-80 with 30 + pack year history LDL-C 11/18/2019 11/17/2018, 12/08/2016, 11/19/2016, Additional history exists URINE MICROALBUMIN 11/18/2019 11/17/2018, 12/08/2016 HgA1C 03/09/2020 09/09/2019, 11/17/2018, 11/19/2016, Additional history exists CREATININE (SERUM) 09/13/2020 09/13/2019, 09/12/2019, 09/11/2019, Additional history exists HEPATITIS C (HCV) SCREEN Completed 09/22/2016 documented as of this encounter Results Not on filedocumented in this encounter Insurance Payer Benefit Plan / Subscriber ID Effective Phone Address T ype Group Dates MEDICAID MEDICAID SSI PENDING 2019-Pres [address] [place] [address] MEDICAID MEDICAID PENDING 2019-Pres [address] [place] [address] documented as of this encounter Advance Directives Name Relationship Healthcare Agent Communication Relationship Nick Sorenson Primary healthcare agent
--- OUTSIDE RECORDS SUMMARY | 2019-12-03 05:16 | XMS REPORT | Summary of Care ---
:1965 Author Organization [facility] Address [address] [place] [id number] Care Team Providers Name Role Phone Jf Potter MD Unavailable Pcp, Does Not Have A Primary Care Provider Reason for Referral (Routine) Status Reason Specialty Diagnoses / Referred By Referred To Procedures Contact Contact New Request IM-CARDIOVASCULAR Diagnoses Diabetic ketoacidosis without coma associated with type 1 diabetes mellitus Bj Chao DISEASE Procedures Discharge Follow-Up: Specialty Service IM-CARDIOVASCULAR DISEASE; 4-6 Weeks MD Logan [address] [place], [place] [phone] (Routine) Status Reason Specialty Diagnoses / Referred By Referred To Procedures Contact Contact New Request IM-ENDOCRINOLOGY, Diagnoses Diabetic ketoacidosis without coma associated with type 1 diabetes mellitus Bj Chao DIABETES & Procedures Discharge Follow-Up: Specialty Service IM-ENDOCRINOLOGY,DIABETES & METABOLISM; 2 Weeks MD Logan METABOLISM [address] [place] [address] (Routine) Status Reason Specialty Diagnoses / Procedures Referred By Derick servin To Contact Contact New Request Diagnoses Diabetic ketoacidosis without coma associated with type 1 diabetes mellitus Bj Chao Pcp, Patient Does Procedures Discharge Follow-up: PCP PATIENT DOES NOT HAVE A PCP; 3-5 Days MD Logan Not Have A [address] [phone] Phone: Radiology Services (STAT) Status Reason Specialty Diagnoses / Referred By Referred To Procedures Contact Contact New Request Diagnostic Diagnoses Diabetic ketoacidosis without coma associated with type 1 diabetes mellitus Sylvesterrical, Radiology Procedures XR KUB Travis Cartre MD [address] [place] [phone] Radiology Services (STAT) Status Reason Specialty Diagnoses / Referred By Referred To Procedures Contact Contact New Request Diagnostic Diagnoses Intubation of airway performed without difficulty Sylvesterrical, Radiology Procedures XR CHEST 1 VW Travis Carter MD [address] [place] [address] Radiology Services (STAT) Status Reason Specialty Diagnoses / Referred By Referred To Procedures Contact Contact New Request Diagnostic Diagnoses Shortness of breath Sylvesterrical, Radiology Procedures XR CHEST 1 VW XR CHEST 2 VW Travis Carter MD [address] [place] [phone] Reason for Visit Reason Comments Shortness of Breath Vomiting Auth/Cert Status Reason Specialty Diagnoses / Referred By Referred To Procedures Contact Contact Emergency Medicine [facility] [address] [place] [phone] Fax: Encounter Details Date Type Department Care Team Description 09/09/2019 - Hospital Encounter Medicine (YOLANDE 10C) Travis Morel MD [address] [place], [place] [address] Diabetic 09/13/2019 2 [facility] Trevor Lockhart Jr., MD 301 [facility] [id number] [place], [place] [address] ketoacidosis [place] [id number] Bj Chao MD [address] [place] [id number] [phone] Allergies No Known Allergiesdocumented as of this encounter (statuses as of 09/13/2019) Medications Medication Sig Dispensed Refills Start Date End Date Status aspirin 81 mg Take 81 mg by 0 Ac tive chewable tablet mouth daily. nitroglycerin 0.[address] 1 tablet 1 Bottle 2 11/03/2016 Active sublingual tablet under the tongue every 5 (five) minutes as needed for Chest pain. clopidogrel 75 mg Take 1 tablet 30 tablet 0 10/27/2018 Active tabletIndications: by mouth daily. Coronary artery disease involving creek coronary artery of creek heart without angina pectoris ATORVASTATIN 80 mg TAKE ONE TABLET 30 tablet 0 12/01/2018 Active tabletIndications: BY MOUTH AT Coronary artery BEDTIME disease involving creek coronary artery of creek heart without angina pectoris lisinopril 5 mg Take 5 mg by 0 A ctive tablet mouth 2 (two) times daily. ezetimibe 10 mg Take 1 tablet 30 tablet 5 02/22/2019 Active tablet by mouth daily. Get blood work done April 26, 2019 metoprolol tartrate Take 0.5 30 tablet 3 09/13/2019 Active 25 mg tablets by tabletIndications: mouth 2 (two) Diabetic times daily. ketoacidosis without coma associated with type 1 diabetes mellitus insulin NPH 100 inject 10 Units 5 mL 3 09/14/2019 Active unit/mL under the skin injectionIndications every morning. : Diabetic ketoacidosis without coma associated with type 1 diabetes mellitus insulin NPH 100 inject 6 Units 3 mL 3 09/13/2019 Active unit/mL under the skin injectionIndications every evening. : Diabetic ketoacidosis without coma associated with type 1 diabetes mellitus insulin regular inject 3 Units 3 mL 3 09/13/2019 Active human 100 unit/mL under the skin injectionIndications 2 (two) times : Diabetic daily before ketoacidosis without breakfast and coma associated with dinner. type 1 diabetes mellitus insulin aspart inject 5 Units 14 mL 1 05/27/2017 Discontinued (NOVOLOG FLEXPEN) under the skin 0 100 unit/mL 3 (three) times injectionIndications daily before : Type 1 diabetes meals. + mellitus with other sliding scale circulatory as mentioned complication upto 8 units with meals METOPROLOL TARTRATE TAKE ONE TABLET 60 tablet 0 12/01/2018 Discontinued 25 mg BY MOUTH TWICE 0 tabletIndications: A DAY Essential hypertension, Coronary artery disease involving creek coronary artery of creek heart without angina pectoris ondansetron 4 mg Take 1 tablet 12 tablet 0 01/08/2019 09/13/19 2 Discontinued disintegrating by mouth every 0 tabletIndications: 8 (eight) hours Nausea vomiting and as needed for diarrhea, SOB Nausea and (shortness of Vomiting (N/V). breath), Dehydration ondansetron (ZOFRAN) Take 1 tablet 12 tablet 0 08/17/201908/26 Discontinued 4 mg by mouth every 0 tabletIndications: 8 (eight) hours Chest wall pain, as needed for Nausea and vomiting Nausea and in adult patient Vomiting (N/V). traMADol (ULTRAM) 50 Take 1 tablet 20 tablet 0 08/17/201908/26 Discontinued mg by mouth every 0 tabletIndications: 6 (six) hours Chest wall pain, as needed for Nausea and vomiting Pain (scale in adult patient 7-10). documented as of this encounter (statuses as of 09/13/2019) Active Problems Problem Noted Date E44.0 Moderate protein calorie malnutrition 09/11/2019 Diabetic ketoacidosis 09/10/2019 Type 1 diabetes mellitus with complication 05/27/2017 CAD (coronary artery disease), creek coronary artery 12/09/2016 documented as of this encounter (statuses as of 09/13/2019) Immunizations Name Administration Dates Next Due Influenza [...] Sign Reading Time Taken Comments Blood Pressure 141/72 09/13/2019 3:59 PM HOSPICE MANAGER Pulse 92 09/13/2019 3:59 PM HOSPICE MANAGER Temperature 36.7 C (98 F) 09/13/2019 3:59 PM HOSPICE MANAGER Respiratory Rate 20 09/13/2019 3:59 PM HOSPICE MANAGER Oxygen Saturation 98% 09/13/2019 3:59 PM HOSPICE MANAGER Inhaled Oxygen Concentration - - Weight 51 kg (112 lb 7 oz) 09/10/2019 8:30 AM HOSPICE MANAGER Height 172.7 cm (5' 8") 09/10/2019 8:30 AM HOSPICE MANAGER Body Mass Index 17.1 09/10/2019 8:30 AM HOSPICE MANAGER documented in this encounter Discharge Instructions AttachmentsThe following attachments cannot be sent through Care Everywhere. Metoprolol tablets (Wallisian)Isophane Insulin (NPH) injection (Wallisian)Diabetic Ketoacidosis (Wallisian)Giving Yourself an Insulin Shot, Qneg-vb-Abbe (Wallisian) Regular Insulin injection (Wallisian)Hyperglycemia (High Blood Sugar) (Wallisian) Treating High Blood Sugar (Hyperglycemia), Yyrw-nc-Oefj (Wallisian)Treating Low Blood Sugar (Hypoglycemia), Yrve-wa-Vblt (Wallisian)Blood Sugar, Low; Hypoglycemia (Wallisian)Diabetes, Diet (Wallisian)documented in this encounter Progress Notes Ulysses Ordonez DO - 09/12/2019 4:07 PM CST [facility] Date of Service: 09/12/2019 16:08 HD #: 3 CC: Diabetic ketoacidosis 24 Hour Events - Transferred from MICU to REMMERS Team Subjective No new complaints PHYSICAL EXAM and OBJECTIVE DATA Vitals: 09/12/19 1200 09/12/19 1300 09/12/19 1400 09/12/19 1500 BP: 130/71 135/73 133/74 137/78 Pulse: 103 93 95 91 Resp: 21 18 Temp: 37 C (98.6 F) TempSrc: Tympanic SpO2: 99% 99% Weight: Height: Intake/Output Summary (Last 24 hours) at 09/12/2019 1608 Last data filed at 09/12/2019 1200 Gross per 24 hour Intake 1169 ml Output 4275 ml Net -3106 ml General: alert and oriented x 4 (person, place, date/time and situation); no apparent distress, welldeveloped, well nourished HEENT: normocephalic atraumatic, pupils equal, round, reactive to light; extraocular movements intact; oropharynx clear; moist mucous membranes Lungs: clear to auscultation bilaterally Cardio: S1, S2 normal; no murmurs, rubs or gallops, regular rate and rhythm Abdomen: soft; non-tender; non-distended; normoactive bowel sounds Extremities: no clubbing, cyanosis, or edema Neuro: cranial nerves II through XII grossly intact; sensation grossly intact; muscle strength 5 outof 5 in all four extremities, no focal deficits LABORATORY: CBC BMP LFTs WBC x10^3 (/CMM) Date Value 04/09/2004 7.1 WBC (10*3/L) Date Value 09/11/2019 13.54 (H) NA Date Value 09/12/2019 135 mmol/L 04/09/2004 138 MMOL/L ALK PHOS (U/L) Date Value 09/09/2019 139 (H) 04/06/2004 141 (H) THB ART (G/DL) Date Value 10/21/2003 12.8 (L) HGB Date Value 09/11/2019 10.2 g/dL (L) 04/09/2004 13.2 G/DL (L) K Date Value 09/12/2019 3.8 mmol/L 04/09/2004 3.5 MMOL/L ALT(SGPT) (U/L) Date Value 01/08/2019 26 04/06/2004 35 ALTv (U/L) Date Value 09/09/2019 29 HCT (%) Date Value 09/11/2019 31.8 (L) 04/09/2004 37.7 CALCIUM Date Value 09/12/2019 8.6 mg/dL 04/09/2004 8.8 MG/DL AST(SGOT) (U/L) Date Value 09/09/2019 34 04/06/2004 30 PLT x10^3 (/CMM) Date Value 04/09/2004 256 PLT (10*3/L) Date Value 09/11/2019 205 CL Date Value 09/12/2019 105 mmol/L 04/09/2004 100 MMOL/L RBC x10^6 (/CMM) Date Value 04/09/2004 4.47 RBC (10*6/L) Date Value 09/11/2019 3.45 (L) BUN Date Value 09/12/2019 5 mg/dL (L) 04/09/2004 6 MG/DL (L) Cardio CREATININE Date Value 09/12/2019 0.53 mg/dL (L) 04/09/2004 0.71 MG/DL NT-proBNP (pg/mL) Date Value 09/09/2019 267 (H) Thyroid TSH (uIU/mL) Date Value 04/06/2004 1.16 No components found for: GLUC RADIOLOGY: Xr Chest 1 Vw Result Date: 09/09/2019 Tip of the endotracheal tube projects 3.2 cm above the krystyna. Esophogastric tube tip projects over the stomach fundus with its side port projecting a few centimeters past the GE junction within the stomach lumen. Preliminary Report Dictated by Resident: Nahun Garcia MD., havereviewed this study and agree with the above report. Xr Chest 1 Vw Result Date: 09/09/2019 No acute cardiopulmonary abnormality. Preliminary Report Dictated by Resident: Estela Grier I, Mckinley Clay MD., have reviewed this study and agree with the above report. Xr Chest 1 Vw Result Date: 08/17/2019 No acute cardiopulmonary disease RL: [id number] AFC: [id number] End of report Xr Kub Result Date: 09/09/2019 Right common femoral vein central venous catheter tip projects over the right sacral tuan (presumably in the right common iliac vein). Preliminary Report Dictated by Resident: Jeromy Garcia MD., have reviewed this study and agree with the above report. Assessment & Plan Nick Elizondo is a 54 year old male admitted to the [facility] Team with: IDDMI (A1c 10%) DKA, resolved Comment: Pt presenting w/ DKA, initial AGAP 38, pH 6.8. Intubated for airway protection. Now extubated, transitioned to SQ insulin and tolerating po well. Endocrinology following. Plan: - Aspart 3 U TIDAC - Lantus 8 U qAM - SSI - Diabetic Diet - Endocrinology following, appreciate recs ICM HFrEF (40-45%) CAD s/p PCI X2 (2017) HTN/HLD Type II GA Comment: Pt w/ Troponin elevation to 0.356 on HD#2, likely demand ischemia. Cardiology consulted, recommended Plan: - ASA 81mg po qD - Clopidogrel 75mg po qD - Atorvastatin 40mg po qHS - Metoprolol Tartrate 12.5mg po BID - Cardiology following, appreciate recs - Outpt f/u Inpatient Ppx: Analgesia GI ppx DVT ppx Plan: - c/w APAP 650mg po q6hPRN - c/w Protonix 40mg po qD - c/w Heparin 5k U sq BID Ulysses Ordonez DO PGY-2 [facility] Team [phone] END OF DAILY PROGRESS NOTE Hospital Course Nick Elizondo is a 54 year old male w/ PMH of Type I DM, ICM HFrEF (40-45%), HTN/HLD, h/oCVA, and polysubstance abuse (Cocaine + THC) who initially presented to the MICU for DKA. On arrival, AGAP 38, pH 6.8. He was intubated for airway protection. Now successfully extubated and transitioned to SQ insulin. Tolerating po well. Endocrinology following. Also of note, the patient had a troponin elevation to 0.356 for which cardiology was consulted. Troponin elevation attributed to Demand Ischemia and only restarting home ASA + Plavix was recommended in addition to outpt f/u. Pt stable for TTF to AWA Team. Current Facility-Administered Medications Medication Dose Route Frequency Last Rate Last Dose Sliding Scale Insulin - Aspart (NOVOLOG) + Fsbg Testing Subcutaneous Q4H acetaminophen (TYLENOL) tablet 650 mg 650 mg Oral Q6HPRN 650 mg at 09/12/19 0851 alum-mag hydroxide-simeth (MAALOX PLUS / MAG-AL PLUS) 200-200-20 mg/5 mL suspension 30 mL 30 mLOral Q6HPRN 30 mL at 09/12/19 0200 atorvastatin (LIPITOR) tablet 40 mg 40 mg Enteral QHS 40 mg at 09/11/192028 benzocaine-menthol (CEPACOL SORE THROAT (CHELY-MEN)) lozenge 1 Lozenge 1 Lozenge Oral Q4HPRN 1Lozenge at 09/11/19 2130 insulin aspart RAPID (NOVOLOG) injection 3 Units 0.15 Units/kg/day Subcutaneous TID MEALS 3 Units at 09/12/19 1118 insulin glargine (LANTUS U-100) injection 8 Units 0.15 Units/kg/day Subcutaneous Q24H 8 Unitsat 09/12/19 0853 phenol (SORE THROAT (PHENOL)) 1.4 % spray bottle 1 Malcom 1 Malcom Oral PRN Saline Bubble Study 6 mL Injection SEE-INSTRUCTIONS 6 mL at 09/11/19 1141 Saline Bubble Study 6 mL Injection SEE-INSTRUCTIONS 6 mL at 09/11/19 1140 aspirin chewable tablet 81 mg 81 mg Enteral DAILY 81 mg at 09/12/19 0852 dextrose 50 % in water (D50W) injection 25 mL 25 mL Slow IV Push PRN glucagon (GLUCAGEN DIAGNOSTIC KIT) injection 1 mg 1 mg Intramuscular PRN heparin (porcine) injection 5,000 Units 5,000 Units Subcutaneous Q12H 5,000 Units at 09/12/200752 insulin regular human (HUMULIN R) 100 Units in NaCl 0.9% (NS) 100 mL infusion 0.1 Units/kg/hr IV Infusion TITRATE Stopped at 09/11/19 1115 pantoprazole (PROTONIX) 40 mg in NaCl 0.9% (NS) 100 mL MINI-BAG 40 mg IV Piggyback DAILY 40 mg at 09/12/19 0852 Jackeline oviedo LBSW - 09/12/2019 10:45 AM HOSPICE MANAGER Care Management Social Functional Assessment Patient Name: Nick Elizondo Age: [age] year old Sex: male Previous admit date: N/A Current diagnosis and co-morbidities: Respiratory failure, Diabetic keto acidosis Social Functional Assessment: Primary language spoken/preferred: Wallisian Mental Status: Alert & Oriented to Person,Place & Time Information given by: Self Patient's support system: Parent Name and number of support system: frank Elizondo [phone] Primary Clutch Assembler: Self MPOA: No Living Arrangement: Home Address of living arrangement : [address] [place], [place] [id number] Persons living in home: Self;Same as support system Barriers to returning home: None Baseline functional status- ambulation: Independent Functional status-baseline personal care: Independent Baseline functional status- driving: Independent Baseline functional status- grocery shopping: Independent Functional status-baseline housekeeping: Independent Functional status-baseline meal prep: Independent Current functional status same as prior: No Current functional status- ambulation: Requires minimal to moderate assistance Current functional status- personal care: Independent Current functional status- driving: Dependent Current functional status- grocery shopping: Dependent Current functional status-house keeping: Requires minimal to moderate assistance Current functional status- meal preparation: Requires minimal to moderate assistance Do you have a PCP?: No Refered to: discussed local indigent heatl care clinics for [facility] Care Agency: No Provider Services: No DME Company: No Equipment: Other Other equipment: glucometer, states he has meds, strips and needles Hemodialysis: No Community resources utilized: Prescription Assistance Program(s);[facility] Resources Fact Sheet;CHP;SSA/SSI/Medicaid Funding Resources: Self Pay Prescription coverage plan: Self Pay Pharmacy where meds are filled: Other Other pharmacy: [facility] Anticipated services prior to disharge: Consult;PT/OT/ST;Lab Values;Continue Medical Eval;Reassess prior to discharge Expected mode of discharge transportation: Same as support system Additional Recommendations for DC: father Kimo Elizondo Additional info required for discharge planning: No needs identified Recommended discharge plan: Home SFA Complete: Social Functional Assessment complete: Yes Alcohol Use Screening (AUDIT-C) How often do you have a drink containing alcohol?: Monthly or less SCORE: 1 How many drinks containing alcohol do you have on a typical day when you are drinking?: 3 or 4 drinks How often do you have six or more drinks on one occasion?: Never Total Score (AUDIT-C): 2 Did patient elect to have resources provided: No Any issues or concerns with obtaining/affording your medications at home: yes. Describe: unfunded, father purchases meds. Are you or your support system able to cook pickled meat medications at discharge: yes. Describe: father. Role of Care Management explained. Pt states upon d/c will have support of his father. Pt states heis not working and had applied for disability in the past, however cannot recall how long ago or if he is in the appeal process. SW referred to Patient Matters for further assistance on application. SW referred to CHP and provided rx coupon card and community resources. DERRICK Colon Ase Master Mechanic/Care Management Office [phone] Radha Gama MD - 09/12/2019 1:34 AM CST MICU Progress Note / Transfer Note Date of Service: 09/12/2019 01:34 Reason for ICU admission: DKA ICU Day: 3 Intubation Day: Extubated 09/11 Code Status: Full Last 24 hour events (major events): - Patient extubated 09/11 - Patient transitioned to subcutaneous insulin - Pt tolerating PO intake. IVFs discontinued as he is eating over half of his meals. Subjective: Patient complains of sore throat. Denies nausea, vomiting, or abdominal pain. Ventilator Bundle: Sedation/Analgesia: None Stress ulcer prophylaxis: Protonix DVT prophylaxis: heparin Insulin drip: No Nutrition: Full liquid diet Lines (with dates): - 09/09/19: 20G PIV Right AC - 09/09/19: 20G PIV Left arm - 09/09/19: 18G PIV Right wrist Casanova: 09/09/19 Intake/Output: Intake/Output Summary (Last 24 hours) at 09/12/2019 0134 Last data filed at 09/12/2019 0000 Gross per 24 hour Intake 2733.65 ml Output 3470 ml Net -736.35 ml Physical Exam: Temp: [36.7 C (98.1 F)-37.5 C (99.5 F)] Heart Rate (monitor): [96-120] Pulse: [95-112] Resp: [13-24] BP: (104-165)/(57-87) MAP (mmHg): [71-110] General: alert, NAD HEENT: pupils equal, round, reactive to light Neck: supple, no bruits Lungs: clear to auscultation bilaterally in anterior haider, no respiratory distress Cardio: S1, S2 normal; no murmurs Abdomen: soft; non-tender; non-distended; normoactive bowel sounds Extremities: no clubbing or edema. Skin: skin on neck and head appear cyanotic Labs/Imaging: reviewed. Assessment/Plan: Nick Elizondo is a 54 year old male who is admitted to the MICU for DKA. Neuro Sedation/Analgesia: Fentanyl, versed Resp Respiratory alkalosis 2/2 metabolic acidosis Patient extubated 09/11, now on O2 NC. - Wean O2 as tolerated Cardiovascular Chronic systolic and diastolic heart failure (EF 40-45%) CAD (s/p PCI with EMILY x2 to RI in 11/2016) Elevated troponin 2/2 demand ischemia Per Cardiology, elevated troponin seems to be due to demand ischemia so heparin drip was discontinued. -ASA 81 daily -Atorvastatin 40mg QHS FEN/GI FLD, advance as tolerated ID No acute issues Renal Anion gap metabolic acidosis 2/2 DKA, resolved Anion gap resolved, now off insulin gtt and fluids. - Monitor volume status - F/u MP Endo HHS with DKA, unknown etiology Uncontrolled DM1 (A1c 10%) Hx of multiple DKA episodes After extubation, patient tolerated PO intake and was transitioned from insulin drip to subQ insulin. Endocrinology assistance appreciated. -C/w subQ insulin Other Hx Substance abuse Currently vitals are stable. -Monitor for signs of withdrawal Dispo: MICU Prognosis: Guarded Code Status: Full Radha Roe MD Internal Medicine, PGY-2 [place] Team Pager: [phone] Hospital Course: Nick Elizondo is a 54 year old male with PMHx of type I DM (HbA1c 10% 09/09/19), CAD (s/p PCI with EMILY x2 to RI in 11/2016), chronic systolic and diastolic heart failure (ICM, EF 40-45% in 05/2018, NYHA IIIB, Stage C), HTN, HLD, hx CVA, hx polysubstance abuse (cocaine, THC), tobacco abuse whois admitted to the MICU for DKA. Due to tachypnea and respiratory distress, patient was intubated inthe ED. Patient was started on insulin gtt for DKA. Although anion gap has closed, we are continuinginsulin gtt as patient is still intubated, NPO, and acidotic. Patient was also found to have troponin elevation to 0.356, no EKG changes, likely 2/2 demand ischemia. Patient was extubated successfully on 09/11. He was then started on a diet and transitioned from insulin drip to subcutaneous insulin as directed by Endocrinology. He is stable for transfer to floor. Medications: Current Facility-Administered Medications: acetaminophen (TYLENOL) tablet 650 mg, 650 mg, Oral, Q6HPRN, Mariluz Guo MD, 650 mg at 09/11/19 1633 alum-mag hydroxide-simeth (MAALOX PLUS / MAG-AL PLUS) 200-200-20 mg/5 mL suspension 30 mL, 30 mL, Oral, Q6HPRN, Florin Zamudio MD atorvastatin (LIPITOR) tablet 40 mg, 40 mg, Enteral, QHS, Radha Roe MD, 40 mg at 09/11/192028 benzocaine-menthol (CEPACOL SORE THROAT (CHELY-MEN)) lozenge 1 Lozenge, 1 Lozenge, Oral, Q4HPRN,Jenae Gann MD, 1 Lozenge at 09/11/19 213 glucagon (GLUCAGEN DIAGNOSTIC KIT) injection 1 mg, 1 mg, Intramuscular, PRN, Barry Marin DO insulin aspart RAPID (NOVOLOG) injection 3 Units, 0.15 Units/kg/day, Subcutaneous, TID MEALS, Barry Marin DO, 3 Units at 09/11/19 1544 [COMPLETED] insulin glargine (LANTUS U-100) injection 8 Units, 0.15 Units/kg/day, Subcutaneous,Q24H, 8 Units at 09/11/19 1112 FOLLOWED BY insulin glargine (LANTUS U-100) injection 8 Units, 0.15 Units/kg/day, Subcutaneous, Q24H, Barry Marin DO phenol (SORE THROAT (PHENOL)) 1.4 % spray bottle 1 Malcom, 1 Malcom, Oral, PRN, Radha Roe MD Saline Bubble Study, 6 mL, Injection, SEE-INSTRUCTIONS, Oren Stephens MD, 6 mL at 09/11/19 1141 Saline Bubble Study, 6 mL, Injection, SEE-INSTRUCTIONS, Oren Stephens MD, 6 mL at 09/11/19 1140 Sliding Scale Insulin - Aspart (NOVOLOG) + Fsbg Testing, , Subcutaneous, Q3H, Mirta Sen MD, 2 Units at 09/11/19 2635 aspirin chewable tablet 81 mg, 81 mg, Enteral, DAILY, Mariluz Guo MD, Stopped at 09/11/19 0900 dextrose 50 % in water (D50W) injection 25 mL, 25 mL, Slow IV Push, PRN, Mariluz Guo MD glucagon (GLUCAGEN DIAGNOSTIC KIT) injection 1 mg, 1 mg, Intramuscular, PRN, Mariluz Guo MD heparin (porcine) injection 5,000 Units, 5,000 Units, Subcutaneous, Q12H, Radha Roe MD, 5,000 Units at 09/11/19 2029 insulin regular human (HUMULIN R) 100 Units in NaCl 0.9% (NS) 100 mL infusion, 0.1 Units/kg/hr,IV Infusion, TITRATE, Mariluz Guo MD, Stopped at 09/11/19 1115 pantoprazole (PROTONIX) 40 mg in NaCl 0.9% (NS) 100 mL MINI-BAG, 40 mg, IV Piggyback, DAILY, Radha Roe MD, 40 mg at 09/11/19 0741 FENTanyl PF (SUBLIMAZE (PF)) 2,500 mcg in NaCl 0.9% (NS) 250 mL infusion, 25-300 mcg/hr, IV Infusion, TITRATE, Travis Morel MD, Stopped at 09/11/19 1018 FENTanyl PF (SUBLIMAZE (PF)) injection 50 mcg, 50 mcg, Slow IV Push, Q30MIN PRN, Travis Morel MD, 50 mcg at 09/09/19 2156 midazolam (VERSED) STD 50 mg in NaCl 0.9% (NS) 50 mL infusion RTU, 1-10 mg/hr, IV Infusion, TITRATE, Kati Gross MD, Stopped at 09/11/19 1018 NORepinephrine 4 mg in D5W 250 mL infusion RTU, 0.05-3 mcg/kg/min, IV Infusion, TITRATE, Kati Gross MD, Stopped at 09/10/19 0820 ICE MANAGER Associated attestation - Braulio Moore MD - 09/12/2019 10:41 AM CSTI personally examined the patient on 09/12/[address] Roe's resident note. I actively participated in the decision-making process. Please see the resident's note for additional details. Mariluz Guo MD - 09/11/2019 7:13 PM CSTBrief MICU Note Date: 09/11/2019 19:14 Code Status: CPR ICU day: 2 Intubation Day: 2, extubated today Nick Elizondo is a 54 year old male with PMHx oftype I DM (HbA1c 10% 09/09/19), CAD (s/pPCI with EMILY x2 to [place] in 11/2016), chronic systolic and diastolic heart failure (ICM, EF 40-45% in 05/2018, NYHA IIIB, Stage C), HTN, HLD, hx CVA, hx polysubstance abuse (cocaine, THC), tobacco abuse whois admitted to the MICU for DKA. 12 Hour Events (includes major events throughout the day, patient status, significant labs, radiology, consult updates): -No SBT yesterday as patient was still acidotic -Transitioned to subcutaneous insulin and decreased rate of D5W per endocrinology recs -Successful extubation, weaned down to 2L NC, SpO2 96-100% -SpO2 reading from bilateral ear lobes 100% and BP on both arms are equal -Full liquid diet for today Temp: [36.7 C (98.1 F)-37.3 C (99.1 F)] Heart Rate (monitor): [96-107] Pulse: [95-107] Resp: [12-20] BP: (87-135)/(46-73) MAP (mmHg): [59-91] Family Update: Updated at bedside Plan for the Next 12 Hours (includes anticipated events, complications to watch for, pending labs/radiology/consults): -Wean O2 as tolerated -Stop IVF with dextrose once patient is tolerating at least half of meals, per endocrine -Can have ensures per racing mechanic -Remove central line Mariluz Guo MD Internal Medicine, PGY1 [facility] Team Pager#: [phone] ICE MANAGER Jackeline Flor, DERRICK - 09/11/2019 2:12 PM CSTSocial Work Note 09/11/2019 2:13 PM SW attempted to do Social Functional Assessment. Pt was able to verify his emergency contact to be his father, Kimo Elizondo at [phone]. Pt requested SW to return tomorrow, 09/12 as patient states it is difficult to speak at this time. DERRICK Colon Ase Master Mechanic/Care Management Office [phone] Mirta Montanez MD - 09/11/2019 9:25 AM CSTBrief/ Preliminary Endocrinology Progress Note Nick Elizondo is a 54 year old male with T1DM here with DKA/HHS and currently intubated on minimal settings. Comments: Gap has closed and patient currently still on insulin drip. Received between 1- 2.9 units/hour of insulin drip for past few hours overnight. Average insulin rate of about 1.5 units/h Equivalent to TDD ~22 units/day (if taking 60% IV-->SC conversion) If doing weight based with 0.4 units/kg, would be about 20 units/day. Will be more conservative given patient intubated and unable to tell us if hypoglycemic, low BMI also of 17. Kidney function normal. Recommendations: Would recommend transition to subcutaneous insulin: Please use the DKA transition order set with dose buttons of 0.15 Units/kg/day for Glargine and 0.15units/kg/day for Aspart. Please do not forget to select the appropriate sliding scale Q4H in the order set that corresponds to the total dose of insulin prescribed for the day. Full note to follow. Mirta Sen MD PGY-5 Endocrinology Fellow Pager: ICE MANAGER Radha Roe MD - 09/11/2019 12:15 AM CST MICU Progress Note Date of Service: 09/11/2019 00:15 Reason for ICU admission: DKA ICU Day: 2 Intubation Day: 2 Code Status: Full Last 24 hour events (major events): - Continuing MV: FiO2 40%, PEEP 5 - Hypoglycemic to 63 last night so D10 bolus given and insulin drip briefly held - Heparin drip stopped per Cards recs (troponin elevation likely 2/2 demand ischemia) Subjective: Patient is intubated and sedated. Ventilator Bundle: Sedation/Analgesia: Fentanyl, versed Stress ulcer prophylaxis: Protonix DVT prophylaxis: heparin Insulin drip: Yes Nutrition: NPO Lines (with dates): - 09/09/19: 20G PIV Right AC - 09/09/19: 20G PIV Left arm - 09/09/19: 18G PIV Right wrist - 09/09/19: CVC Right femoral Casanova: 09/09/19 Intake/Output: Intake/Output Summary (Last 24 hours) at 09/11/2019 0015 Last data filed at 09/10/2019 2200 Gross per 24 hour Intake 5275.5 ml Output 1400 ml Net 3875.5 ml Physical Exam: Temp: [36.2 C (97.2 F)-38 C (100.4 F)] Heart Rate (monitor): [97-113] Pulse: [96-115] Resp: [12-20] BP: (86-143)/(46-77) MAP (mmHg): [59-90] General: sedated, intubated HEENT: pupils equal, round, reactive to light; dry mucous membranes Neck: supple, no bruits Lungs: clear to auscultation bilaterally in anterior haider, no respiratory distress Cardio: S1, S2 normal; no murmurs Abdomen: soft; non-tender; non-distended; normoactive bowel sounds Extremities: no clubbing or edema. Nail beds on upper and lower extremities are blue tinged. Skin: skin on neck and head appear significantly cyanotic Labs/Imaging: reviewed. Assessment/Plan: Nick Elizondo is a 54 year old male who is admitted to the MICU for DKA. Neuro Sedation/Analgesia: Fentanyl, versed Resp Respiratory alkalosis 2/2 metabolic acidosis Patient presented with tachypnea, likely due to metabolic acidosis. Due to respiratory distress, intubated and sedated, currently on minimal vent settings. -Vent: PRVC/SIMV FiO2 40%, PEEP 5 -SBT this AM Cardiovascular Chronic systolic and diastolic heart failure (EF 40-45%) CAD (s/p PCI with EMILY x2 to [place] in 11/2016) Elevated troponin 2/2 demand ischemia Per Cardiology, elevated troponin seems to be due to demand ischemia. Thus heparin drip was discontinued. Formal echo pending. -ASA 81 daily -TTE (with bubble study given cyanosis) -Atorvastatin 40mg QHS FEN/GI NPO ID No acute issues Renal Anion gap metabolic acidosis 2/2 DKA, improving Anion gap resolved at time of presentation to MICU, however still has metabolic acidosis. Will continue insulin gtt and fluids. - C/w IVF: D5W 1/2 NS + KCl - Monitor volume status - BMP Q3H Endo HHS with DKA, unknown etiology Uncontrolled DM1 (A1c 10%) Hx of multiple DKA episodes As patient is still intubated, NPO, and acidotic, will continue insulin gtt. Endocrinology on board,recs appreciated. -C/w insulin gtt -C/w aggressive IV hydration and electrolyte repletion Other Hx Substance abuse Currently vitals are stable. -Monitor for signs of withdrawal Dispo: MICU Prognosis: Guarded Code Status: Full Radha Roe MD Internal Medicine, PGY-2 [place] Team Pager: [phone] Hospital Course: Nick Elizondo is a 54 year old male with PMHx of type I DM (HbA1c 10% 09/09/19), CAD (s/p PCI with EMILY x2 to [place] in 11/2016), chronic systolic and diastolic heart failure (ICM, EF 40-45% in 05/2018, NYHA IIIB, Stage C), HTN, HLD, hx CVA, hx polysubstance abuse (cocaine, THC), tobacco abuse whois admitted to the MICU for DKA. Due to tachypnea and respiratory distress, patient was intubated inthe ED. Patient was started on insulin gtt for DKA. Although anion gap has closed, we are continuinginsulin gtt as patient is still intubated, NPO, and acidotic. Patient was also found to have troponin elevation to 0.356, no EKG changes, likely 2/2 demand ischemia. Endocrinology and Cardiology on board, recs appreciated. Medications: Current Facility-Administered Medications: aspirin chewable tablet 81 mg, 81 mg, Enteral, DAILY, Muraleedharan, Mariluz, MD, 81 mg at 09/10/19 1239 D5W 0.45% NaCl (1/2NS) 1 L + KCL 20 mEq, , IV Infusion, CONTINUOUS, Mariluz Guo MD, Last Rate: 200 mL/hr at 09/10/19 2309 dextrose 50 % in water (D50W) injection 25 mL, 25 mL, Slow IV Push, PRN, Mariluz Guo MD glucagon (GLUCAGEN DIAGNOSTIC KIT) injection 1 mg, 1 mg, Intramuscular, PRN, Mariluz Guo MD heparin (porcine) injection 5,000 Units, 5,000 Units, Subcutaneous, Q12H, Radha Roe MD insulin regular human (HUMULIN R) 100 Units in NaCl 0.9% (NS) 100 mL infusion, 0.1 Units/kg/hr,IV Infusion, TITRATE, Mariluz Guo MD, Last Rate: 1.3 mL/hr at 09/10/192303, 0.025 Units/kg/hr at 09/10/192303 naloxone (NARCAN) injection 0.4 mg, 0.4 mg, Slow IV Push, ONCE, Mariluz Guo MD, Stopped at 09/10/19 1630 pantoprazole (PROTONIX) 40 mg in NaCl 0.9% (NS) 100 mL MINI-BAG, 40 mg, IV Piggyback, DAILY, Radha Roe MD Sliding Scale Insulin-Regular + Fsbg Testing, , Subcutaneous, AC+HS, Kati Gross MD, Stopped at 09/10/19 1130 FENTanyl PF (SUBLIMAZE (PF)) 2,500 mcg in NaCl 0.9% (NS) 250 mL infusion, 25-300 mcg/hr, IV Infusion, TITRATE, Travis Morel MD, Last Rate: 5 mL/hr at 09/10/192007, 50 mcg/hr at 09/10/192007 FENTanyl PF (SUBLIMAZE (PF)) injection 50 mcg, 50 mcg, Slow IV Push, Q30MIN PRN, Travis Morel MD, 50 mcg at 09/09/192155 midazolam (VERSED) STD 50 mg in NaCl 0.9% (NS) 50 mL infusion RTU, 1-10 mg/hr, IV Infusion, TITRATE, Kati Gross MD, Last Rate: 3 mL/hr at 09/10/192008, 3 mg/hr at 09/10/192008 NORepinephrine 4 mg in D5W 250 mL infusion RTU, 0.05-3 mcg/kg/min, IV Infusion, TITRATE, Kati Gross MD, Stopped at 09/10/19 0820 ICE MANAGER Associated attestation - Braulio Moore MD - 09/11/2019 10:16 AM CSTI personally examined the patient on 09/11/[address] Roe's resident note. I actively participated in the decision-making process. Please see the resident's note for additional details. Nick Elizondo is a 54 year old male admitted with DKA, acute respiratory failure on mechanical ventilation. Mechanical Ventilation: FiO2 40%, Peep 5 AGAP closed SBT today. Gee Smith MD - 09/09/2019 4:36 PM CSTThis patient's case and situation have been discussed with primary team. The patient has been accepted for transfer to the MICU. The MICU charge nurse and nursing service director have been notified for bed arrangement. The patient will remain under the care of the current primary team until the patient arrives to the MICU. Gee Smith MD PGY-4 Fellow Pulmonary & Critical Care Medicine Pager [phone] documented in this encounter Plan of Treatment Name Type Priority Associated Diagnoses Date/Ti me ABG+COOX+NA+K+GLU+CA LAB Routine Shortness o f breath 09/10/2019 12:15 AM HOSPICE MANAGER 2+ Diabetic ketoacidosis without coma associated with type 1 diabetes mellitus Hyperkalemia Intubation of airway performed without difficulty Name Type Priority Associated Diagnoses Order S chedule POCT GLUCOSE(AGE LAB [facility] Shortness of br eath EVERY HOUR (START >30DAYS) Diabetic ketoacidosis TIME A DJUSTABLE) for without coma 1 Days starting associated with type 1 02/15 /2020 until diabetes mellitu s 09/10/2019, 8 Hyperkalemia completed ABG+COOX+NA+K+GLU+C LAB Routine Shortness of breath ONCE for 1 A2+ Diabetic ketoacidosis Occurr ences starting without coma 09/09/2019 unti l associated with type 1 09/09, 1 diabetes mellitu s completed Hyperkalemia Intubation of airway performed without difficulty EKG-12 LEAD ROUTINE HEART STATION STAT ONCE fo r 1 Occurrences sta rting 09/10/2019 unti l 09/10/2019 POCT GLUCOSE(AGE LAB [place] EVERY HOUR (START >30DAYS) TIME ADJUSTABLE ) for 5 Occurrences starting 2019 until 0 SPUTUM CULTURE LAB [place] ONCE for 1 Occurrences sta rting 09/11/2019 unti l 09/11/2019 BASIC METABOLIC LAB [place] EVERY 24 EDIE RS (START PANEL (NA, K, CL, TIME ADJUS TABLE) for CO2, GLUCOSE, BUN, 12 Days s tarting CREATININE, CA) 09/13/2019 u ntil 09/24/2019, 1 completed Health Maintenance Due Date Last Done Comments [...] 11/17/2018, 11/19/2016, Additional history exists CREATININE (SERUM) 09/12/2020 09/12/2019, 09/11/2019, 09/11/2019, Additional history exists HEPATITIS C (HCV) SCREEN Completed 09/22/2016 documented as of this encounter Procedures Procedure Name Priority Date/Time Associated Diagnosis Comme nts POCT GLUCOSE Routine 09/13/2019 1:18 Results for this (AUTOMATED) PM HOSPICE MANAGER procedure are i n the results section. POCT GLUCOSE Routine 09/13/2019 9:26 Results for this (AUTOMATED) AM HOSPICE MANAGER procedure are i n the results section. BASIC METABOLIC PANEL Routine 09/13/2019 4:19 Re sults for this (NA, K, CL, CO2, AM HOSPICE MANAGER procedure a re in GLUCOSE, BUN, the results CREATININE, CA) section. POCT GLUCOSE Routine 09/13/2019 3:51 Results for this (AUTOMATED) AM HOSPICE MANAGER procedure are i n the results section. POCT GLUCOSE Routine 09/13/2019 12:03 Results for this (AUTOMATED) AM HOSPICE MANAGER procedure are i n the results section. POCT GLUCOSE Routine 09/12/2019 9:30 Results for this (AUTOMATED) PM HOSPICE MANAGER procedure are i n the results section. POCT GLUCOSE Routine 09/12/2019 5:20 Results for this (AUTOMATED) PM HOSPICE MANAGER procedure are i n the results section. POCT GLUCOSE Routine 09/12/2019 5:02 Results for this (AUTOMATED) PM HOSPICE MANAGER procedure are i n the results section. POCT GLUCOSE Routine 09/12/2019 11:17 Results for this (AUTOMATED) AM HOSPICE MANAGER procedure are i n the results section. POCT GLUCOSE Routine 09/12/2019 7:36 Results for this (AUTOMATED) AM HOSPICE MANAGER procedure are i n the results section. BASIC METABOLIC PANEL [place] 09/12/2019 5:16 Shortness of breath Results for this (NA, K, CL, CO2, AM HOSPICE MANAGER Diabetic procedure a re in GLUCOSE, BUN, ketoacidosis without the re sults CREATININE, CA) coma associated with sect ion. type 1 diabetes mellitus Hyperkalemia POCT GLUCOSE Routine 09/12/2019 4:19 Results for this (AUTOMATED) AM HOSPICE MANAGER procedure are i n the results section. POCT GLUCOSE Routine 09/12/2019 2:48 Results for this (AUTOMATED) AM HOSPICE MANAGER procedure are i n the results section. BASIC METABOLIC PANEL [place] 09/11/2019 11:49 Shortness of breath Results for this (NA, K, CL, CO2, PM HOSPICE MANAGER Diabetic procedure a re in GLUCOSE, BUN, ketoacidosis without the re sults CREATININE, CA) coma associated with sect ion. type 1 diabetes mellitus Hyperkalemia POCT GLUCOSE Routine 09/11/2019 11:34 Results for this (AUTOMATED) PM HOSPICE MANAGER procedure are i n the results section. POCT GLUCOSE Routine 09/11/2019 8:37 Results for this (AUTOMATED) PM HOSPICE MANAGER procedure are i n the results section. POCT GLUCOSE Routine 09/11/2019 5:38 Results for this (AUTOMATED) PM HOSPICE MANAGER procedure are i n the results section. POCT GLUCOSE Routine 09/11/2019 3:34 Results for this (AUTOMATED) PM HOSPICE MANAGER procedure are i n the results section. POCT GLUCOSE Routine 09/11/2019 12:20 Results for this (AUTOMATED) PM HOSPICE MANAGER procedure are i n the results section. POCT GLUCOSE Routine 09/11/2019 11:11 Results for this (AUTOMATED) AM HOSPICE MANAGER procedure are i n the results section. ECHO ROUTINE [place] 09/11/2019 11:08 Shortness of breath W/DOPPLER COLOR AM HOSPICE MANAGER BASIC METABOLIC PANEL [facility] 09/11/2019 10:05 Shortness of breath Results for this (NA, K, CL, CO2, AM HOSPICE MANAGER Diabetic procedure a re in GLUCOSE, BUN, ketoacidosis without the re sults CREATININE, CA) coma associated with sect ion. type 1 diabetes mellitus Hyperkalemia POCT GLUCOSE Routine 09/11/2019 10:02 Results for this (AUTOMATED) AM HOSPICE MANAGER procedure are i n the results section. POCT GLUCOSE Routine 09/11/2019 9:22 Results for this (AUTOMATED) AM HOSPICE MANAGER procedure are i n the results section. CBC WITH DIFFERENTIAL Routine 09/11/2019 8:06 Re sults for this AM HOSPICE MANAGER procedure are i n the results section. CBC WITH DIFFERENTIAL Routine 09/11/2019 8:06 Re sults for this AM HOSPICE MANAGER procedure are i n the results section. POCT GLUCOSE Routine 09/11/2019 8:05 Results for this (AUTOMATED) AM HOSPICE MANAGER procedure are i n the results section. POCT GLUCOSE Routine 09/11/2019 7:15 Results for this (AUTOMATED) AM HOSPICE MANAGER procedure are i n the results section. POCT GLUCOSE Routine 09/11/2019 6:07 Results for this (AUTOMATED) AM HOSPICE MANAGER procedure are i n the results section. BASIC METABOLIC PANEL [place] 09/11/2019 6:07 Shortness of breath Results for this (NA, K, CL, CO2, AM HOSPICE MANAGER Diabetic procedure a re in GLUCOSE, BUN, ketoacidosis without the re sults CREATININE, CA) coma associated with sect ion. type 1 diabetes mellitus Hyperkalemia POCT GLUCOSE Routine 09/11/2019 5:06 Results for this (AUTOMATED) AM HOSPICE MANAGER procedure are i n the results section. POCT GLUCOSE Routine 09/11/2019 4:09 Results for this (AUTOMATED) AM HOSPICE MANAGER procedure are i n the results section. POCT GLUCOSE Routine 09/11/2019 2:57 Results for this (AUTOMATED) AM HOSPICE MANAGER procedure are i n the results section. BASIC METABOLIC PANEL [place] 09/11/2019 2:06 Shortness of breath Results for this (NA, K, CL, CO2, AM HOSPICE MANAGER Diabetic procedure a re in GLUCOSE, BUN, ketoacidosis without the re sults CREATININE, CA) coma associated with sect ion. type 1 diabetes mellitus Hyperkalemia POCT GLUCOSE Routine 09/11/2019 2:02 Results for this (AUTOMATED) AM HOSPICE MANAGER procedure are i n the results section. POCT GLUCOSE Routine 09/11/2019 1:04 Results for this (AUTOMATED) AM HOSPICE MANAGER procedure are i n the results section. POCT GLUCOSE Routine 09/11/2019 12:11 Results for this (AUTOMATED) AM HOSPICE MANAGER procedure are i n the results section. POCT GLUCOSE Routine 09/10/2019 11:02 Results for this (AUTOMATED) PM HOSPICE MANAGER procedure are i n the results section. BASIC METABOLIC PANEL [place] 09/10/2019 10:06 Shortness of breath Results for this (NA, K, CL, CO2, PM HOSPICE MANAGER Diabetic procedure a re in GLUCOSE, BUN, ketoacidosis without the re sults CREATININE, CA) coma associated with sect ion. type 1 diabetes mellitus Hyperkalemia POCT GLUCOSE Routine 09/10/2019 10:01 Results for this (AUTOMATED) PM HOSPICE MANAGER procedure are i n the results section. POCT GLUCOSE Routine 09/10/2019 9:06 Results for this (AUTOMATED) PM HOSPICE MANAGER procedure are i n the results section. POCT GLUCOSE Routine 09/10/2019 8:49 Results for this (AUTOMATED) PM HOSPICE MANAGER procedure are i n the results section. POCT GLUCOSE Routine 09/10/2019 8:23 Results for this (AUTOMATED) PM HOSPICE MANAGER procedure are i n the results section. POCT GLUCOSE Routine 09/10/2019 8:00 Results for this (AUTOMATED) PM HOSPICE MANAGER procedure are i n the results section. ACTIVATED PARTIAL [place] 09/10/2019 6:01 Result s for this THRMPLAS CHASE PM HOSPICE MANAGER procedure are i n the results section. BASIC METABOLIC PANEL [place] 09/10/2019 6:01 Shortness of breath Results for this (NA, K, CL, CO2, PM HOSPICE MANAGER Diabetic procedure a re in GLUCOSE, BUN, ketoacidosis without the re sults CREATININE, CA) coma associated with sect ion. type 1 diabetes mellitus Hyperkalemia POCT GLUCOSE Routine 09/10/2019 5:50 Results for this (AUTOMATED) PM HOSPICE MANAGER procedure are i n the results section. POCT GLUCOSE Routine 09/10/2019 4:38 Results for this (AUTOMATED) PM HOSPICE MANAGER procedure are i n the results section. SPUTUM CULTURE [facility] 09/10/2019 3:37 Results f or this PM HOSPICE MANAGER procedure are i n the results section. AC PANEL 21 + LACTIC [facility] 09/10/2019 3:03 Res ults for this ACID PM HOSPICE MANAGER procedure are i n the results section. BASIC METABOLIC PANEL [facility] 09/10/2019 3:02 Shortness of breath Results for this (NA, K, CL, CO2, PM HOSPICE MANAGER Diabetic procedure a re in GLUCOSE, BUN, ketoacidosis without the re sults CREATININE, CA) coma associated with sect ion. type 1 diabetes mellitus Hyperkalemia TROPONIN I [facility] 09/10/2019 3:02 Results for this PM HOSPICE MANAGER procedure are i n the results section. POCT GLUCOSE Routine 09/10/2019 2:56 Results for this (AUTOMATED) PM HOSPICE MANAGER procedure are i n the results section. ACTIVATED PARTIAL [facility] 09/10/2019 11:33 Result s for this THRMPLAS CHAES AM HOSPICE MANAGER procedure are i n the results section. PROTHROMBIN TIME / STAT 09/10/2019 11:33 Resul ts for this INR AM HOSPICE MANAGER procedure are i n the results section. MRSA / MSSA SCREEN BY [facility] 09/10/2019 11:29 Re sults for this PCR, NARES AM HOSPICE MANAGER procedure are i n the results section. BASIC METABOLIC PANEL [facility] 09/10/2019 11:28 Shortness of breath Results for this (NA, K, CL, CO2, AM HOSPICE MANAGER Diabetic procedure a re in GLUCOSE, BUN, ketoacidosis without the re sults CREATININE, CA) coma associated with sect ion. type 1 diabetes mellitus Hyperkalemia TROPONIN I [facility] 09/10/2019 11:28 Results for this AM HOSPICE MANAGER procedure are i n the results section. POCT GLUCOSE Routine 09/10/2019 7:57 Results for this (AUTOMATED) AM HOSPICE MANAGER procedure are i n the results section. ABG+COOX+NA+K+GLU+CA2 Routine 09/10/2019 7:48 Intubation of a [place] Results for this + AM HOSPICE MANAGER performed without procedure are in difficulty the results section. BASIC METABOLIC PANEL Routine 09/10/2019 6:42 Shortness of breath Results for this (NA, K, CL, CO2, AM HOSPICE MANAGER Diabetic procedure a re in GLUCOSE, BUN, ketoacidosis without the re sults CREATININE, CA) coma associated with sect ion. type 1 diabetes mellitus Hyperkalemia TROPONIN I Routine 09/10/2019 6:42 Shortness of breath Resu lts for this AM HOSPICE MANAGER procedure are i n the results section. POCT GLUCOSE Routine 09/10/2019 6:23 Results for this (AUTOMATED) AM HOSPICE MANAGER procedure are i n the results section. POCT GLUCOSE([facility] 09/10/2019 6:15 Shortness of b reath Results for this >30DAYS) AM HOSPICE MANAGER Diabetic procedure are i n ketoacidosis without the res ults coma associated with section . type 1 diabetes mellitus Hyperkalemia POCT GLUCOSE([facility] 09/10/2019 4:15 Shortness of b reath Results for this >30DAYS) AM HOSPICE MANAGER Diabetic procedure are i n ketoacidosis without the res ults coma associated with section . type 1 diabetes mellitus Hyperkalemia BASIC METABOLIC PANEL Routine 09/10/2019 4:14 Shortness of breath Results for this (NA, K, CL, CO2, AM HOSPICE MANAGER Diabetic procedure a re in GLUCOSE, BUN, ketoacidosis without the re sults CREATININE, CA) coma associated with sect ion. type 1 diabetes mellitus Hyperkalemia POCT GLUCOSE Routine 09/10/2019 4:11 Results for this (AUTOMATED) AM HOSPICE MANAGER procedure are i n the results section. POCT GLUCOSE Routine 09/10/2019 4:08 Results for this (AUTOMATED) AM HOSPICE MANAGER procedure are i n the results section. POCT GLUCOSE Routine 09/10/2019 2:45 Results for this (AUTOMATED) AM HOSPICE MANAGER procedure are i n the results section. POCT GLUCOSE Routine 09/10/2019 1:44 Results for this (AUTOMATED) AM HOSPICE MANAGER procedure are i n the results section. POCT GLUCOSE([facility] 09/10/2019 1:40 Shortness of b reath Results for this >30DAYS) AM HOSPICE MANAGER Diabetic procedure are i n ketoacidosis without the res ults coma associated with section . type 1 diabetes mellitus Hyperkalemia BASIC METABOLIC PANEL Routine 09/10/2019 1:12 Shortness of breath Results for this (NA, K, CL, CO2, AM HOSPICE MANAGER Diabetic procedure a re in GLUCOSE, BUN, ketoacidosis without the re sults CREATININE, CA) coma associated with sect ion. type 1 diabetes mellitus Hyperkalemia POCT GLUCOSE Routine 09/10/2019 12:41 Results for this (AUTOMATED) AM HOSPICE MANAGER procedure are i n the results section. POCT GLUCOSE([facility] 09/10/2019 12:40 Shortness of b reath Results for this >30DAYS) AM HOSPICE MANAGER Diabetic procedure are i n ketoacidosis without the res ults coma associated with section . type 1 diabetes mellitus Hyperkalemia POCT GLUCOSE Routine 09/09/2019 11:35 Results for this (AUTOMATED) PM HOSPICE MANAGER procedure are i n the results section. POCT GLUCOSE([facility] 09/09/2019 11:35 Shortness of b reath Results for this >30DAYS) PM HOSPICE MANAGER Diabetic procedure are i n ketoacidosis without the res ults coma associated with section . type 1 diabetes mellitus Hyperkalemia POCT GLUCOSE Routine 09/09/2019 10:33 Results for this (AUTOMATED) PM HOSPICE MANAGER procedure are i n the results section. POCT GLUCOSE([facility] 09/09/2019 10:30 Shortness of b reath Results for this >30DAYS) PM HOSPICE MANAGER Diabetic procedure are i n ketoacidosis without the res ults coma associated with section . type 1 diabetes mellitus Hyperkalemia BASIC METABOLIC PANEL STAT 09/09/2019 10:09 Shortness of breath Results for this (NA, K, CL, CO2, PM HOSPICE MANAGER Diabetic procedure a re in GLUCOSE, BUN, ketoacidosis without the re sults CREATININE, CA) coma associated with sect ion. type 1 diabetes mellitus Hyperkalemia POCT GLUCOSE Routine 09/09/2019 9:02 Results for this (AUTOMATED) PM HOSPICE MANAGER procedure are i n the results section. POCT GLUCOSE([facility] 09/09/2019 9:00 Shortness of b reath Results for this >30DAYS) PM HOSPICE MANAGER Diabetic procedure are i n ketoacidosis without the res ults coma associated with section . type 1 diabetes mellitus Hyperkalemia ABG+COOX+NA+K+GLU+CA2 STAT 09/09/2019 7:48 Diabetic Re sults for this + PM HOSPICE MANAGER ketoacidosis without procedu re are in coma associated with the res ults type 1 diabetes section. mellitus POCT GLUCOSE Routine 09/09/2019 6:32 Results for this (AUTOMATED) PM HOSPICE MANAGER procedure are i n the results section. BASIC METABOLIC PANEL STAT 09/09/2019 6:30 Shortness of breath Results for this (NA, K, CL, CO2, PM HOSPICE MANAGER Diabetic procedure a re in GLUCOSE, BUN, ketoacidosis without the re sults CREATININE, CA) coma associated with sect ion. type 1 diabetes mellitus Hyperkalemia XR KUB STAT 09/09/2019 6:29 Diabetic Results for this PM HOSPICE MANAGER ketoacidosis without procedu re are in coma associated with the res ults type 1 diabetes section. mellitus LACTIC ACID WHOLE STAT 09/09/2019 5:30 Shortness of breath Results for this BLOOD PM HOSPICE MANAGER procedure are i n the results section. TROPONIN I STAT 09/09/2019 5:29 Shortness of br eath Results for this PM HOSPICE MANAGER Diabetic procedure are i n ketoacidosis without the res ults coma associated with section . type 1 diabetes mellitus Hyperkalemia Intubation of airway performed without difficulty POCT GLUCOSE Routine 09/09/2019 5:23 Results for this (AUTOMATED) PM HOSPICE MANAGER procedure are i n the results section. ABG+COOX+NA+K+GLU+CA2 STAT 09/09/2019 4:44 Shortness of breath Results for this + PM HOSPICE MANAGER Diabetic procedure are i n ketoacidosis without the res ults coma associated with section . type 1 diabetes mellitus Hyperkalemia XR CHEST 1 VW STAT 09/09/2019 4:38 Intubation of airway Re sults for this PM HOSPICE MANAGER performed without procedure are in difficulty the results section. POCT GLUCOSE Routine 09/09/2019 4:14 Results for this (AUTOMATED) PM HOSPICE MANAGER procedure are i n the results section. POCT GLUCOSE(AGE MACKENZIE 09/09/2019 4:10 Shortness of b reath Results for this >30DAYS) PM HOSPICE MANAGER Diabetic procedure are i n ketoacidosis without the res ults coma associated with section . type 1 diabetes mellitus Hyperkalemia URINALYSIS STAT 09/09/2019 3:58 Shortness of br eath Results for this PM HOSPICE MANAGER Diabetic procedure are i n ketoacidosis without the res ults coma associated with section . type 1 diabetes mellitus Hyperkalemia GLYCOSYLATED STAT 09/09/2019 3:58 Shortness of br eath Results for this HEMOGLOBIN (A1C) PM HOSPICE MANAGER Diabetic procedure a re in ketoacidosis without the res ults coma associated with section . type 1 diabetes mellitus Hyperkalemia BASIC METABOLIC PANEL STAT 09/09/2019 3:58 Shortness of breath Results for this (NA, K, CL, CO2, PM HOSPICE MANAGER Diabetic procedure a re in GLUCOSE, BUN, ketoacidosis without the re sults CREATININE, CA) coma associated with sect ion. type 1 diabetes mellitus Hyperkalemia BETA HYDROXY-BUTYRATE STAT 09/09/2019 3:58 Shortness of breath Results for this PM HOSPICE MANAGER Diabetic procedure are i n ketoacidosis without the res ults coma associated with section . type 1 diabetes mellitus Hyperkalemia OSMOLALITY SERUM STAT 09/09/2019 3:58 Shortness of b reath Results for this PM HOSPICE MANAGER Diabetic procedure are i n ketoacidosis without the res ults coma associated with section . type 1 diabetes mellitus Hyperkalemia MAGNESIUM STAT 09/09/2019 3:58 Shortness of br eath Results for this PM HOSPICE MANAGER Diabetic procedure are i n ketoacidosis without the res ults coma associated with section . type 1 diabetes mellitus Hyperkalemia PHOSPHORUS STAT 09/09/2019 3:58 Shortness of br eath Results for this PM HOSPICE MANAGER Diabetic procedure are i n ketoacidosis without the res ults coma associated with section . type 1 diabetes mellitus Hyperkalemia EKG-12 LEAD Routine 09/09/2019 3:44 PM HOSPICE MANAGER POCT GLUCOSE(AGE MACKENZIE 09/09/2019 3:14 Shortness of breath Results for this >30DAYS) PM HOSPICE MANAGER procedure are i n the results section. POCT GLUCOSE Routine 09/09/2019 3:12 Results for this (AUTOMATED) PM HOSPICE MANAGER procedure are i n the results section. LACTIC ACID WHOLE STAT 09/09/2019 3:00 Shortness of breath Results for this BLOOD PM HOSPICE MANAGER procedure are i n the results section. ABG+COOX+NA+K+GLU+CA2 STAT 09/09/2019 3:00 Shortness of br eath Results for this + PM HOSPICE MANAGER procedure are i n the results section. XR CHEST 1 VW STAT 09/09/2019 2:47 Shortness of breath Res ults for this PM HOSPICE MANAGER procedure are i n the results section. COMP. METABOLIC PANEL STAT 09/09/2019 2:35 Shortness of br eath Results for this (04089) PM HOSPICE MANAGER procedure are i n the results section. CBC WITH DIFFERENTIAL STAT 09/09/2019 2:01 Shortness of br eath Results for this PM HOSPICE MANAGER procedure are i n the results section. N-TERMINAL PRO-BNP STAT 09/09/2019 2:01 Shortness of breat h Results for this PM HOSPICE MANAGER procedure are i n the results section. CBC WITH DIFFERENTIAL Routine 09/09/2019 2:01 Shortness of br eath Results for this PM HOSPICE MANAGER procedure are i n the results section. TROPONIN I STAT 09/09/2019 2:01 Shortness of breath Resu lts for this PM HOSPICE MANAGER procedure are i n the results section. EKG-12 LEAD Routine 09/09/2019 1:56 PM HOSPICE MANAGER documented in this encounter Results POCT GLUCOSE (AUTOMATED) (09/13/2019 1:18 PM HOSPICE MANAGER) Pathologist [facility] POCT GLU 211 (H) 70 - 110 mg/dL [facility] Specimen Blood Performing Organization Address [facility] Phone Number [facility] CLIA: [id number], [address] [place] [address] 77 [facility] POCT GLUCOSE (AUTOMATED) (09/13/2019 9:26 AM HOSPICE MANAGER) Pathologist [facility] POCT GLU 267 (H) 70 - 110 mg/dL [facility] Specimen Blood Performing Organization Address [facility] Phone Number [facility] CLIA: [id number], [address] [place] [address] [facility] BASIC METABOLIC PANEL (NA, K, CL, CO2, GLUCOSE, BUN, CREATININE, CA) (09/13/2019 4:19 AM HOSPICE MANAGER) NA 131 (L) 135 - 145 [facility] mmol/L SERVICES K 3.6 3.5 - 5.0 [facility] mmol/L SERVICES CL 98 98 - 108 mmol/L [facility] SERVICES CO2 TOTAL 27 23 - 31 mmol/L [facility] SERVICES AGAP 6 2 - 16 [facility] SERVICES BUN 9 7 - 23 mg/dL [facility] SERVICES GLUCOSE 152 (H) 70 - 110 mg/dL [facility] SERVICES CREATININE 0.48 (L) 0.60 - 1.25 [facility] mg/dL SERVICES CALCIUM 8.6 8.6 - 10.6 [facility] mg/dL SERVICES eGFR Calculation 181.0 mL/min/1.73m2 [facility] (Non- SERVICES Guamanian) eGFR Calculation 219.3 mL/min/1.73m2 [facility] () SERVICES Specimen Blood - HAND, LEFT Narrative Performed At [facility] of Glomerular Filtration Rate (GFR) and St aging [facility] SERVICES of Kidney Disease* + + +------- ------ + | GFR (mL/min/1.73 m2) | With Kidney Damage | Wi thout Kidney Damage + + +------- ------ + | >90 | Stage one | Normal + + +------- ------ + | 60-89 | Stage two | Decreased GFR + + +------- ------ + | 30-59 | Stage three | Stage three + + +------- ------ + | 15-29 | Stage four | Stage four + + +------- ------ + | <15 (or dialysis) | Stage five | Stage five + + +------- ------ + *Each stage assumes the associated GFR level has been in effect for at least three months. Stages 1 to 5, wit h or without kidney disease, indicate chronic kidney disease. Notes: Determination of stages one and two (with eGFR >59mL/min/1.73 m2) requires estimation of kidney damag e for at least three months as defined by structural or func tional abnormalities of the kidney, manifested by either: Pathological abnormalities or Markers of kidney damage (including abnormalities in the composition of the blo od or urine or abnormalities in imaging tests) . Performing Organization Address City/[facility]/Zipcode Phone Number [facility] CLIA: [id number], [address] [place] [address] [address] [facility] POCT GLUCOSE (AUTOMATED) (09/13/2019 3:51 AM HOSPICE MANAGER) Pathologist [facility] POCT GLU 137 (H) 70 - 110 mg/dL [facility] Specimen Blood Performing Organization Address [facility]/Zipcode Phone Number [facility] CLIA: [id number], [address] [place] [address] [facility] POCT GLUCOSE (AUTOMATED) (09/13/2019 12:03 AM HOSPICE MANAGER) Pathologist [facility] nature POCT GLU 117 (H) 70 - 110 mg/dL [facility] Specimen Blood Performing Organization Address [facility] Phone Number [facility] CLIA: [id number], [address] [place] [address] [address] POCT GLUCOSE (AUTOMATED) (09/12/2019 9:30 PM HOSPICE MANAGER) Pathologist Sig nature POCT GLU 160 (H) 70 - 110 mg/dL [facility] Specimen Blood Performing Organization Address [facility] Phone Number [facility] CLIA: [id number], [address] [place] [address] [address] [employer] POCT GLUCOSE (AUTOMATED) (09/12/2019 5:20 PM HOSPICE MANAGER) Pathologist Sig nature POCT GLU 161 (H)Comment: 70 - 110 mg/dL [facility] Specimen Blood Performing Organization Address [facility] Phone Number [facility] CLIA: [id number], [address] [place] [address] [address] [employer] POCT GLUCOSE (AUTOMATED) (09/12/2019 5:02 PM HOSPICE MANAGER) Pathologist Sig nature POCT GLU 150 (H) 70 - 110 mg/dL [facility] Specimen Blood Performing Organization Address [facility] Phone Number [facility] CLIA: [id number], [address] [place] [address] [address] [employer] POCT GLUCOSE (AUTOMATED) (09/12/2019 11:17 AM HOSPICE MANAGER) Pathologist Sig nature POCT GLU 163 (H) 70 - 110 mg/dL [facility] Specimen Blood Performing Organization Address [facility] Phone Number [facility] CLIA: [id number], [address] [place] [address] [address] [employer] POCT GLUCOSE (AUTOMATED) (09/12/2019 7:36 AM HOSPICE MANAGER) Pathologist Sig nature POCT GLU 182 (H) 70 - 110 mg/dL [facility] Specimen Blood Performing Organization Address City/State/Zipcode Phone Number [facility] CLIA: [id number], [address] [place], [place] [address] [facility] Basic Metabolic Panel (Na, K, Cl, CO2, Glucose, BUN, Creatinine, Ca) (09/12/2019 5:16 AM HOSPICE MANAGER) NA 135 135 - 145 [facility] mmol/L SERVICES K 3.8 3.5 - 5.0 [facility] mmol/L SERVICES CL 105 98 - 108 mmol/L [facility] SERVICES CO2 TOTAL 25 23 - 31 mmol/L [facility] SERVICES AGAP 5 2 - 16 [facility] SERVICES BUN 5 (L) 7 - 23 mg/dL [facility] SERVICES GLUCOSE 80 70 - 110 mg/dL [facility] SERVICES CREATININE 0.53 (L) 0.60 - 1.25 [facility] mg/dL SERVICES CALCIUM 8.6 8.6 - 10.6 [facility] mg/dL SERVICES eGFR Calculation 161.4 mL/min/1.73m2 [facility] (Non- SERVICES [place]ian) eGFR Calculation 195.6 mL/min/1.73m2 [facility] () SERVICES Specimen Blood - VENOUS Narrative Performed At [facility] of Glomerular Filtration Rate (GFR) and St aging [facility] of Kidney Disease* + + +------- ------ + | GFR (mL/min/1.73 m2) | With Kidney Damage | Wi thout Kidney Damage + + +------- ------ + | >90 | Stage one | Normal + + +------- ------ + | 60-89 | Stage two | Decreased GFR + + +------- ------ + | 30-59 | Stage three | Stage three + + +------- ------ + | 15-29 | Stage four | Stage four + + +------- ------ + | <15 (or dialysis) | Stage five | Stage five + + +------- ------ + *Each stage assumes the associated GFR level has been in effect for at least three months. Stages 1 to 5, wit h or without kidney disease, indicate chronic kidney disease. Notes: Determination of stages one and two (with eGFR >59mL/min/1.73 m2) requires estimation of kidney damag e for at least three months as defined by structural or func tional abnormalities of the kidney, manifested by either: Pathological abnormalities or Markers of kidney damage (including abnormalities in the composition of the blo od or urine or abnormalities in imaging tests) . Performing Organization Address City/State/Zipcode Phone Number [facility] CLIA: [id number], [address] [place] [address] 555 [facility] POCT GLUCOSE (AUTOMATED) (09/12/2019 4:19 AM HOSPICE MANAGER) Pathologist Sig nature POCT GLU 175 (H) 70 - 110 mg/dL [facility] Specimen Blood Performing Organization Address City/[facility] Phone Number [facility] CLIA: [id number], [address] [place] [address] [facility] POCT GLUCOSE (AUTOMATED) (09/12/2019 2:48 AM HOSPICE MANAGER) Pathologist Sig nature POCT GLU 98 70 - 110 mg/dL [facility] Specimen Blood Performing Organization Address City/[facility] Phone Number [facility] CLIA: [id number], [address] [place] [address] [facility] Basic Metabolic Panel (Na, K, Cl, CO2, Glucose, BUN, Creatinine, Ca) (09/11/2019 11:49 PM HOSPICE MANAGER) NA 134 (L) 135 - 145 [facility] mmol/L SERVICES K 4.0 3.5 - 5.0 [facility] mmol/L SERVICES CL 106 98 - 108 mmol/L [facility] SERVICES CO2 TOTAL 22 (L) 23 - 31 mmol/L [facility] SERVICES AGAP 6 2 - 16 [facility] SERVICES BUN 6 (L) 7 - 23 mg/dL [facility] SERVICES GLUCOSE 250 (H) 70 - 110 mg/dL [facility] SERVICES CREATININE 0.55 (L) 0.60 - 1.25 [facility] mg/dL SERVICES CALCIUM 8.4 (L) 8.6 - 10.6 [facility] mg/dL SERVICES eGFR Calculation 154.7 mL/min/1.73m2 [facility] (Non- SERVICES Guamanian) eGFR Calculation 187.4 mL/min/1.73m2 [facility] () SERVICES Specimen Blood - VENOUS Narrative Performed At [facility] of Glomerular Filtration Rate (GFR) and St aging [facility] of Kidney Disease* + + +------- ------ + | GFR (mL/min/1.73 m2) | With Kidney Damage | Wi thout Kidney Damage + + +------- ------ + | >90 | Stage one | Normal + + +------- ------ + | 60-89 | Stage two | Decreased GFR + + +------- ------ + | 30-59 | Stage three | Stage three + + +------- ------ + | 15-29 | Stage four | Stage four + + +------- ------ + | <15 (or dialysis) | Stage five | Stage five + + +------- ------ + *Each stage assumes the associated GFR level has been in effect for at least three months. Stages 1 to 5, wit h or without kidney disease, indicate chronic kidney disease. Notes: Determination of stages one and two (with eGFR >59mL/min/1.73 m2) requires estimation of kidney damag e for at least three months as defined by structural or func tional abnormalities of the kidney, manifested by either: Pathological abnormalities or Markers of kidney damage (including abnormalities in the composition of the blo od or urine or abnormalities in imaging tests) . Performing Organization Address City/[facility] Phone Number [facility] CLIA: [id number], [address] [place] [address] [address] [facility] POCT GLUCOSE (AUTOMATED) (09/11/2019 11:34 PM HOSPICE MANAGER) Pathologist Sig nature POCT GLU 250 (H) 70 - 110 mg/dL [facility] Specimen Blood Performing Organization Address [facility] Phone Number [facility] CLIA: [id number], [address] [place] [address] [address] [employer] POCT GLUCOSE (AUTOMATED) (09/11/2019 8:37 PM HOSPICE MANAGER) Pathologist Sig nature POCT GLU 213 (H) 70 - 110 mg/dL [facility] Specimen Blood Performing Organization Address [facility] Phone Number [facility] CLIA: [id number], [address] [place] [address] [address] [employer] POCT GLUCOSE (AUTOMATED) (09/11/2019 5:38 PM HOSPICE MANAGER) Pathologist Sig nature POCT GLU 216 (H) 70 - 110 mg/dL [facility] Specimen Blood Performing Organization Address [facility] Phone Number [facility] CLIA: [id number], [address] [place] [address] [facility] POCT GLUCOSE (AUTOMATED) (09/11/2019 3:34 PM HOSPICE MANAGER) Pathologist Sig nature POCT GLU 276 (H) 70 - 110 mg/dL [facility] Specimen Blood Performing Organization Address City/[facility] Phone Number [facility] CLIA: [id number], [address] [place] [address] [facility] POCT GLUCOSE (AUTOMATED) (09/11/2019 12:20 PM HOSPICE MANAGER) Pathologist Sig nature POCT GLU 206 (H) 70 - 110 mg/dL [facility] Specimen Blood Performing Organization Address City/[facility] Phone Number [facility] CLIA: [id number], [address] [place] [address] [address] [facility] POCT GLUCOSE (AUTOMATED) (09/11/2019 11:11 AM HOSPICE MANAGER) Pathologist Sig nature POCT GLU 194 (H) 70 - 110 mg/dL [facility] Specimen Blood Performing Organization Address [facility] Phone Number [facility] CLIA: [id number], [address] [place] [address] [address] [facility] Basic Metabolic Panel (Na, K, Cl, CO2, Glucose, BUN, Creatinine, Ca) (09/11/2019 10:05 AM HOSPICE MANAGER) NA 134 (L) 135 - 145 [facility] mmol/L SERVICES K 4.2 3.5 - 5.0 [facility] mmol/L SERVICES CL 111 (H) 98 - 108 mmol/L [facility] SERVICES CO2 TOTAL 21 (L) 23 - 31 mmol/L [facility] SERVICES AGAP 2 2 - 16 [facility] SERVICES BUN 10 7 - 23 mg/dL [facility] SERVICES GLUCOSE 184 (H) 70 - 110 mg/dL [facility] SERVICES CREATININE 0.57 (L) 0.60 - 1.25 [facility] mg/dL SERVICES CALCIUM 7.8 (L) 8.6 - 10.6 [facility] mg/dL SERVICES eGFR Calculation 148.4 mL/min/1.73m2 [facility] (Non- SERVICES [place]ian) eGFR Calculation 179.9 mL/min/1.73m2 [facility] () SERVICES Specimen Blood - VENOUS Narrative Performed At [facility] of Glomerular Filtration Rate (GFR) and St aging [facility] of Kidney Disease* + + +------- ------ + | GFR (mL/min/1.73 m2) | With Kidney Damage | Wi thout Kidney Damage + + +------- ------ + | >90 | Stage one | Normal + + +------- ------ + | 60-89 | Stage two | Decreased GFR + + +------- ------ + | 30-59 | Stage three | Stage three + + +------- ------ + | 15-29 | Stage four | Stage four + + +------- ------ + | <15 (or dialysis) | Stage five | Stage five + + +------- ------ + *Each stage assumes the associated GFR level has been in effect for at least three months. Stages 1 to 5, wit h or without kidney disease, indicate chronic kidney disease. Notes: Determination of stages one and two (with eGFR >59mL/min/1.73 m2) requires estimation of kidney damag e for at least three months as defined by structural or func tional abnormalities of the kidney, manifested by either: Pathological abnormalities or Markers of kidney damage (including abnormalities in the composition of the blo od or urine or abnormalities in imaging tests) . Performing Organization Address City/[facility] Phone Number [facility] CLIA: [id number], [address] [place] [address] [address] [facility] POCT GLUCOSE (AUTOMATED) (09/11/2019 10:02 AM HOSPICE MANAGER) [facility] POCT GLU 182 (H) 70 - 110 mg/dL [facility] Specimen Blood Performing Organization Address City/[facility] Phone Number [facility] CLIA: [id number], [address] [place] [address] [facility] POCT GLUCOSE (AUTOMATED) (09/11/2019 9:22 AM HOSPICE MANAGER) [facility] POCT GLU 175 (H) 70 - 110 mg/dL [facility] Specimen Blood Performing Organization Address [facility] Phone Number [facility] CLIA: [id number], [address] [place] [address] [facility] CBC WITH DIFFERENTIAL (09/11/2019 8:06 AM HOSPICE MANAGER) Pathologist Sig nature WBC 13.54 (H) 4.20 - 10.70 [facility] 10*3/L SERVICES RBC 3.45 (L) 4.26 - 5.52 [facility] 10*6/L SERVICES HGB 10.2 (L) 12.2 - 16.4 [facility] g/dL SERVICES HCT 31.8 (L) 38.4 - 49.3 % [facility] MCV 92.2 81.7 - 95.6 fL [facility] MCH 29.6 26.1 - 32.7 pg [facility] MCHC 32.1 31.2 - 35.0 [facility] g/dL SERVICES RDW-SD 48.5 38.5 - 51.6 fL [facility] RDW-CV 14.4 12.1 - 15.4 % [facility] PLT 205 150 - 328 [facility] 10*3/L SERVICES MPV 8.6 (L) 9.8 - 13.0 fL [facility] NRBC/100 WBC 0.0 0.0 - 10.0 /100 [facility] WBCs SERVICES NRBC x10^3 <0.01 10*3/L [facility] GRAN MAT (NEUT) % 89.1 % [facility] IMM GRAN % 0.40 % [facility] LYMPH % 5.2 % [facility] MONO % 4.7 % [facility] EOS % 0.5 % [facility] BASO % 0.1 % [facility] GRAN MAT x10^3(ANC) 12.06 (H) 1.99 - 6.95 [facility] 10*3/uL SERVICES IMM GRAN x10^3 0.05 0.00 - 0.06 [facility] 10*3/uL SERVICES LYMPH x10^3 0.70 (L) 1.09 - 3.23 [facility] 10*3/uL SERVICES MONO x10^3 0.64 0.36 - 1.02 [facility] 10*3/uL SERVICES EOS x10^3 0.07 0.06 - 0.53 [facility] 10*3/uL SERVICES BASO x10^3 <0.03 0.01 - 0.09 [facility] 10*3/uL SERVICES Specimen Blood - VENOUS Performing Organization Address City/State/Zipcode Phone Number [facility] CLIA: [id number], [address] [place] [address] 555 [facility] POCT GLUCOSE (AUTOMATED) (09/11/2019 8:05 AM HOSPICE MANAGER) Pathologist Sig nature POCT GLU 169 (H) 70 - 110 mg/dL [facility] Specimen Blood Performing Organization Address [facility] Phone Number [facility] CLIA: [id number], [address] [place] [address] [facility] POCT GLUCOSE (AUTOMATED) (09/11/2019 7:15 AM HOSPICE MANAGER) Pathologist Sig [facility] POCT GLU 144 (H) 70 - 110 mg/dL [facility] Specimen Blood Performing Organization Address [facility] Phone Number [facility] CLIA: [id number], [address] [place] [address] 7755 [facility] POCT GLUCOSE (AUTOMATED) (09/11/2019 6:07 AM HOSPICE MANAGER) Pathologist Sig nature POCT GLU 127 (H) 70 - 110 mg/dL [facility] Specimen Blood Performing Organization Address [facility] Phone Number [facility] CLIA: [id number], [address] [place] [address] 7755 [facility] Basic Metabolic Panel (Na, K, Cl, CO2, Glucose, BUN, Creatinine, Ca) (09/11/2019 6:07 AM HOSPICE MANAGER) Pathologist Sig nature NA 137 135 - 145 [facility] mmol/L SERVICES K 4.1 3.5 - 5.0 [facility] mmol/L SERVICES CL 113 (H) 98 - 108 mmol/L [facility] CO2 TOTAL 19 (L) 23 - 31 mmol/L [facility] AGAP 5 2 - 16 [facility] BUN 12 7 - 23 mg/dL [facility] SERVICES GLUCOSE 126 (H) 70 - 110 mg/dL [facility] CREATININE 0.60 0.60 - 1.25 [facility] mg/dL SERVICES CALCIUM 8.2 (L) 8.6 - 10.6 [facility] mg/dL SERVICES eGFR Calculation 139.9 mL/min/1.73m2 [facility] (Non- SERVICES [place]ian) eGFR Calculation 169.5 mL/min/1.73m2 [facility] () SERVICES Specimen Blood - CENTRAL VENOUS LINE Narrative Performed At Association of Glomerular Filtration Rate (GFR) and St aging [facility] of Kidney Disease* + + +------- ------ + | GFR (mL/min/1.73 m2) | With Kidney Damage | Wi thout Kidney Damage + + +------- ------ + | >90 | Stage one | Normal + + +------- ------ + | 60-89 | Stage two | Decreased GFR + + +------- ------ + | 30-59 | Stage three | Stage three + + +------- ------ + | 15-29 | Stage four | Stage four + + +------- ------ + | <15 (or dialysis) | Stage five | Stage five + + +------- ------ + *Each stage assumes the associated GFR level has been in effect for at least three months. Stages 1 to 5, wit h or without kidney disease, indicate chronic kidney disease. Notes: Determination of stages one and two (with eGFR >59mL/min/1.73 m2) requires estimation of kidney damag e for at least three months as defined by structural or func tional abnormalities of the kidney, manifested by either: Pathological abnormalities or Markers of kidney damage (including abnormalities in the composition of the blo od or urine or abnormalities in imaging tests) . Performing Organization Address [facility] Phone Number [facility] CLIA: [id number], [address] [place] [address] [facility] POCT GLUCOSE (AUTOMATED) (09/11/2019 5:06 AM HOSPICE MANAGER) Pathologist [facility] POCT GLU 143 (H) 70 - 110 mg/dL [facility] Specimen Blood Performing Organization Address [facility] Phone Number [facility] CLIA: [id number], [address] [place], [place] [phone] [facility] POCT GLUCOSE (AUTOMATED) (09/11/2019 4:09 AM HOSPICE MANAGER) Pathologist [facility] nature POCT GLU 165 (H) 70 - 110 mg/dL [facility] Specimen Blood Performing Organization Address [facility] Phone Number [facility] CLIA: [id number], [address] [place], [place] [phone] [facility] POCT GLUCOSE (AUTOMATED) (09/11/2019 2:57 AM HOSPICE MANAGER) Pathologist Sig bhaskar POCT GLU 189 (H) 70 - 110 mg/dL [facility] Specimen Blood Performing Organization Address City/State/Zipcode Phone Number [facility] CLIA: [id number], [address] [place], [place] 7[address] [facility] Basic Metabolic Panel (Na, K, Cl, CO2, Glucose, BUN, Creatinine, Ca) (09/11/2019 2:06 AM HOSPICE MANAGER) Pathologist Sig nature NA 137 135 - 145 [facility] mmol/L SERVICES K 4.2 3.5 - 5.0 [facility] mmol/L SERVICES CL 114 (H) 98 - 108 mmol/L [facility] SERVICES CO2 TOTAL 18 (L) 23 - 31 mmol/L [facility] SERVICES AGAP 5 2 - 16 [facility] BUN 13 7 - 23 mg/dL [facility] SERVICES GLUCOSE 207 (H) 70 - 110 mg/dL [facility] SERVICES CREATININE 0.63 0.60 - 1.25 [facility] mg/dL SERVICES CALCIUM 7.9 (L) 8.6 - 10.6 [facility] mg/dL SERVICES eGFR Calculation 132.2 mL/min/1.73m2 [facility] (Non- SERVICES [place]ian) eGFR Calculation 160.3 mL/min/1.73m2 [facility] () SERVICES Specimen Blood - CENTRAL VENOUS LINE Narrative Performed At Association of Glomerular Filtration Rate (GFR) and St aging [facility] of Kidney Disease* + + +------- ------ + | GFR (mL/min/1.73 m2) | With Kidney Damage | Wi thout Kidney Damage + + +------- ------ + | >90 | Stage one | Normal + + +------- ------ + | 60-89 | Stage two | Decreased GFR + + +------- ------ + | 30-59 | Stage three | Stage three + + +------- ------ + | 15-29 | Stage four | Stage four + + +------- ------ + | <15 (or dialysis) | Stage five | Stage five + + +------- ------ + *Each stage assumes the associated GFR level has been in effect for at least three months. Stages 1 to 5, wit h or without kidney disease, indicate chronic kidney disease. Notes: Determination of stages one and two (with eGFR >59mL/min/1.73 m2) requires estimation of kidney damag e for at least three months as defined by structural or func tional abnormalities of the kidney, manifested by either: Pathological abnormalities or Markers of kidney damage (including abnormalities in the composition of the blo od or urine or abnormalities in imaging tests) . Performing Organization Address City/[facility] Phone Number [facility] CLIA: [id number], [address] [place] [address] 555 [facility] POCT GLUCOSE (AUTOMATED) (09/11/2019 2:02 AM HOSPICE MANAGER) Pathologist Sig nature POCT GLU 213 (H) 70 - 110 mg/dL [facility] Specimen Blood Performing Organization Address [facility] Phone Number [facility] CLIA: [id number], [address] [place] [address] [facility] POCT GLUCOSE (AUTOMATED) (09/11/2019 1:04 AM HOSPICE MANAGER) Pathologist Sig nature POCT GLU 215 (H) 70 - 110 mg/dL [facility] Specimen Blood Performing Organization Address [facility] [place] Phone Number [facility] CLIA: [id number], [address] [place] [address] [facility] POCT GLUCOSE (AUTOMATED) (09/11/2019 12:11 AM HOSPICE MANAGER) Pathologist Sig nature POCT GLU 230 (H) 70 - 110 mg/dL [facility] Specimen Blood Performing Organization Address [facility] Phone Number [facility] CLIA: [id number], [address] [place] [address] [facility] POCT GLUCOSE (AUTOMATED) (09/10/2019 11:02 PM HOSPICE MANAGER) Pathologist Sig nature POCT GLU 201 (H) 70 - 110 mg/dL [facility] Specimen Blood Performing Organization Address [facility] Phone Number [facility] CLIA: [id number], [address] [place] [address] [facility] Basic Metabolic Panel (Na, K, Cl, CO2, Glucose, BUN, Creatinine, Ca) (09/10/2019 10:06 PM HOSPICE MANAGER) Pathologist [place] nature NA 136 135 - 145 [facility] mmol/L SERVICES K 4.3 3.5 - 5.0 [facility] mmol/L SERVICES CL 114 (H) 98 - 108 mmol/L [facility] SERVICES CO2 TOTAL 17 (L) 23 - 31 mmol/L [facility] SERVICES AGAP 5 2 - 16 [facility] SERVICES BUN 15 7 - 23 mg/dL [facility] SERVICES GLUCOSE 165 (H) 70 - 110 mg/dL [facility] CREATININE 0.66 0.60 - 1.25 [facility] mg/dL SERVICES CALCIUM 8.0 (L) 8.6 - 10.6 [facility] mg/dL SERVICES eGFR Calculation 125.3 mL/min/1.73m2 [facility] (Non- SERVICES [place]ian) eGFR Calculation 151.9 mL/min/1.73m2 [facility] () SERVICES Specimen Blood - CENTRAL VENOUS LINE Narrative Performed At Association of Glomerular Filtration Rate (GFR) and St aging [facility] of Kidney Disease* + + +------- ------ + | GFR (mL/min/1.73 m2) | With Kidney Damage | Wi thout Kidney Damage + + +------- ------ + | >90 | Stage one | Normal + + +------- ------ + | 60-89 | Stage two | Decreased GFR + + +------- ------ + | 30-59 | Stage three | Stage three + + +------- ------ + | 15-29 | Stage four | Stage four + + +------- ------ + | <15 (or dialysis) | Stage five | Stage five + + +------- ------ + *Each stage assumes the associated GFR level has been in effect for at least three months. Stages 1 to 5, wit h or without kidney disease, indicate chronic kidney disease. Notes: Determination of stages one and two (with eGFR >59mL/min/1.73 m2) requires estimation of kidney damag e for at least three months as defined by structural or func tional abnormalities of the kidney, manifested by either: Pathological abnormalities or Markers of kidney damage (including abnormalities in the composition of the blo od or urine or abnormalities in imaging tests) . Performing Organization Address City/State/Zipcode Phone Number [facility] CLIA: [id number], [address] [place], [place] [address] [facility] POCT GLUCOSE (AUTOMATED) (09/10/2019 10:01 PM HOSPICE MANAGER) Pathologist Sig nature POCT GLU 174 (H) 70 - 110 mg/dL [facility] Specimen Blood Performing Organization Address [facility] Phone Number [facility] CLIA: [id number], [address] [place] [address] [address] [place] POCT GLUCOSE (AUTOMATED) (09/10/2019 9:06 PM HOSPICE MANAGER) Pathologist Sig nature POCT GLU 148 (H) 70 - 110 mg/dL [facility] Specimen Blood Performing Organization Address City/[facility] Phone Number [facility] CLIA: [id number], [address] [place] [address] 77 [place] POCT GLUCOSE (AUTOMATED) (09/10/2019 8:49 PM HOSPICE MANAGER) Pathologist Sig nature POCT GLU 168 (H) 70 - 110 mg/dL [facility] Specimen Blood Performing Organization Address [facility] Phone Number [facility] CLIA: [id number], [address] [place] [address]755 [place] POCT GLUCOSE (AUTOMATED) (09/10/2019 8:23 PM HOSPICE MANAGER) Pathologist Sig nature POCT GLU 63 (L) 70 - 110 mg/dL [facility] Specimen Blood Performing Organization Address [facility] Phone Number [facility] CLIA: [id number], [address] [place] [address] [place] POCT GLUCOSE (AUTOMATED) (09/10/2019 8:00 PM HOSPICE MANAGER) Pathologist Sig nature POCT GLU 77 70 - 110 mg/dL [facility] Specimen Blood Performing Organization Address [facility] Phone Number [facility] CLIA: [id number], [address] [place] [address] [place] aPTT (for use with Heparin Practice Guideline). Note: Draw and Send all Lab STAT. (09/10/2019 6:01 PM HOSPICE MANAGER) Pathologist Sig nature APTT Patient 77 (H) 26 - 36 Seconds [facility] Specimen Blood Performing Organization Address City/State/Zipcode Phone Number [facility] CLIA: [id number], [address] [place], [place] [address] [facility] Basic Metabolic Panel (Na, K, Cl, CO2, Glucose, BUN, Creatinine, Ca) (09/10/2019 6:01 PM HOSPICE MANAGER) Pathologist Sig nature NA 140 135 - 145 [facility] mmol/L SERVICES K 3.8 3.5 - 5.0 [facility] mmol/L SERVICES CL 116 (H) 98 - 108 mmol/L [facility] SERVICES CO2 TOTAL 18 (L) 23 - 31 mmol/L [facility] SERVICES AGAP 6 2 - 16 [facility] BUN 17 7 - 23 mg/dL [facility] SERVICES GLUCOSE 175 (H) 70 - 110 mg/dL [facility] SERVICES CREATININE 0.69 0.60 - 1.25 [facility] mg/dL SERVICES CALCIUM 8.0 (L) 8.6 - 10.6 [facility] mg/dL SERVICES eGFR Calculation 119.0 mL/min/1.73m2 [facility] (Non- SERVICES [place]ian) eGFR Calculation 144.3 mL/min/1.73m2 [facility] () SERVICES Specimen Blood Narrative Performed At Association of Glomerular Filtration Rate (GFR) and St aging [facility] of Kidney Disease* + + +------- ------ + | GFR (mL/min/1.73 m2) | With Kidney Damage | Wi thout Kidney Damage + + +------- ------ + | >90 | Stage one | Normal + + +------- ------ + | 60-89 | Stage two | Decreased GFR + + +------- ------ + | 30-59 | Stage three | Stage three + + +------- ------ + | 15-29 | Stage four | Stage four + + +------- ------ + | <15 (or dialysis) | Stage five | Stage five + + +------- ------ + *Each stage assumes the associated GFR level has been in effect for at least three months. Stages 1 to 5, wit h or without kidney disease, indicate chronic kidney disease. Notes: Determination of stages one and two (with eGFR >59mL/min/1.73 m2) requires estimation of kidney damag e for at least three months as defined by structural or func tional abnormalities of the kidney, manifested by either: Pathological abnormalities or Markers of kidney damage (including abnormalities in the composition of the blo od or urine or abnormalities in imaging tests) . Performing Organization Address City/State/Zipcode Phone Number [facility] CLIA: [id number], [address] [place] [address] 555 [facility] POCT GLUCOSE (AUTOMATED) (09/10/2019 5:50 PM HOSPICE MANAGER) Pathologist Sig nature POCT GLU 172 (H) 70 - 110 mg/dL [facility] Specimen Blood Performing Organization Address City/[facility] Phone Number [facility] CLIA: [id number], [address] [place] [address] [facility] POCT GLUCOSE (AUTOMATED) (09/10/2019 4:38 PM HOSPICE MANAGER) Pathologist Sig nature POCT GLU 229 (H) 70 - 110 mg/dL [facility] Specimen Blood Performing Organization Address [facility] Phone Number [facility] CLIA: [id number], [address] [place] [address] [facility] SPUTUM CULTURE (09/10/2019 3:37 PM HOSPICE MANAGER) SPUTUM CULTURE Specimen cellular [facility] elements do not SERVICES represent lower respiratory tract. Specimen rejected for routine bacterial culture. Suggest reorder and recollection. Specimen Sputum - SPUTUM, EXPECTORATE Performing Organization Address City/[facility] Phone Number [facility] CLIA: [id number], [address] [place] [address] 555 [facility] AC PANEL 21 + LACTIC ACID (09/10/2019 3:03 PM HOSPICE MANAGER) Pathologist Sig nature PH 7.23 (L) 7.32 - 7.42 [facility] PCO2 CHEMO 35 (L) 41 - 51 mmHg [facility] PO2 CHEMO 155 (HH) 25 - 40 mmHg [facility] HCO3 CHEMO 14 (L) 24 - 28 mEq/L [facility] AC VBE(BEAKER) -12.1 mEq/L [facility] THB CHEMO 11.4 (L) 13.5 - 18.0 g/dL [facility] %O2HB CHEMO 97.3 (H) 52.0 - 63.0 % [facility] %COHB CHEMO 0.3 0.0 - 1.5 % [facility] %METHB CHEMO 0.6 0.4 - 1.5 % [facility] VOL%O2 CHEMO 15.9 (H) 6.0 - 12.0 % [facility] NA 138 135 - 145 mmol/L [facility] K+ 4.1 3.5 - 5.0 mmol/L [facility] AC CA IONZ 5.00 4.50 - 5.30 mg/dL [facility] GLUCOSE 283 (H) 70 - 110 mg/dL [facility] LACTIC ACID 0.99 0.50 - 2.20 [facility] mmol/L SERVICES Specimen Blood - ARM, LEFT Performing Organization Address City/State/Zipcode Phone Number [facility] CLIA: [id number], [address] [place], [place] [address] [facility] Basic Metabolic Panel (Na, K, Cl, CO2, Glucose, BUN, Creatinine, Ca) (09/10/2019 3:02 PM HOSPICE MANAGER) Pathologist Sig nature NA 141 135 - 145 [facility] mmol/L SERVICES K 3.6 3.5 - 5.0 [facility] mmol/L SERVICES CL 120 (H) 98 - 108 mmol/L [facility] SERVICES CO2 TOTAL 13 (L) 23 - 31 mmol/L [facility] AGAP 8 2 - 16 [facility] BUN 16 7 - 23 mg/dL [facility] GLUCOSE 240 (H) 70 - 110 mg/dL [facility] CREATININE 0.63 0.60 - 1.25 [facility] mg/dL SERVICES CALCIUM 6.8 (L) 8.6 - 10.6 [facility] mg/dL SERVICES eGFR Calculation 132.2 mL/min/1.73m2 [facility] (Non- SERVICES [place]ian) eGFR Calculation 160.3 mL/min/1.73m2 [facility] () SERVICES Specimen Blood - CENTRAL VENOUS LINE Narrative Performed At Association of Glomerular Filtration Rate (GFR) and St aging [facility] of Kidney Disease* + + +------- ------ + | GFR (mL/min/1.73 m2) | With Kidney Damage | Wi thout Kidney Damage + + +------- ------ + | >90 | Stage one | Normal + + +------- ------ + | 60-89 | Stage two | Decreased GFR + + +------- ------ + | 30-59 | Stage three | Stage three + + +------- ------ + | 15-29 | Stage four | Stage four + + +------- ------ + | <15 (or dialysis) | Stage five | Stage five + + +------- ------ + *Each stage assumes the associated GFR level has been in effect for at least three months. Stages 1 to 5, wit h or without kidney disease, indicate chronic kidney disease. Notes: Determination of stages one and two (with eGFR >59mL/min/1.73 m2) requires estimation of kidney damag e for at least three months as defined by structural or func tional abnormalities of the kidney, manifested by either: Pathological abnormalities or Markers of kidney damage (including abnormalities in the composition of the blo od or urine or abnormalities in imaging tests) . Performing Organization Address [facility] Cent[facility]ode Phone Number [facility] CLIA: [id number], [address] [place] [address] 555 [facility] TROPONIN I (09/10/2019 3:02 PM HOSPICE MANAGER) [facility] 8digits TROPONIN I 0.123 (H) <=0.034 ng/mL [facility] Specimen Blood - CENTRAL VENOUS LINE Narrative Performed At Equal or Less than 0.034 ng/ml---Normal [facility] Note: Cardiac troponin begins to rise 3-4 hours after the onset of ischemia. Repeat in 4-6 hours if the sample w as drawn within 3-4 hours of the onset of the symptom and found normal. Between 0.035 and 0.120 ng/mL--- Borderline. Questiona ble myocardial injury or necrosis Note: Serial measurement may be necessary to confirm o r exclude the diagnosis of myocardial injury or necrosis ; Clinical correlation (symptoms, EKGs, imaging studies, and others) required; Repeat in 4-6 hours if clinically indicated. Equal or Higher than 0.121 ng/mL---Abnormal. Myocardia l Injury or Necrosis Likely Biotin has been reported to cause a negative bias, int erpret results relative to patient's use of biotin. Performing Organization Address [facility]/Zipcode Phone Number [facility] LABORATORY SERVICES CLIA: [id number], [address] [place] [address] 77 555 [facility] POCT GLUCOSE (AUTOMATED) (09/10/2019 2:56 PM HOSPICE MANAGER) [facility] 8digits POCT GLU 253 (H) 70 - 110 mg/dL [facility] Specimen Blood Performing Organization Address City/[facility] Centercode Phone Number [facility] CLIA: [id number], [address] [place] [address] 7[address] [place] aPTT (09/10/2019 11:33 AM HOSPICE MANAGER) Pathologist Sig nature APTT Patient 27 26 - 36 Seconds [facility] LABORATORY SERVICES Specimen Blood - CENTRAL VENOUS LINE Performing Organization Address [facility] Centercode Phone Number [facility]ORATORY SERVICES CLIA: [id number], [address] [place] [address] 77 555 [facility] Prothrombin Time (PT) / INR (09/10/2019 11:33 AM HOSPICE MANAGER) PROTIME PATIENT 11.0 10.1 - 12.6 [facility]ORAT[facility] Seconds SERVICES INR 1.0Comment: Normal [facility]OR[facility] INR <1.1; Warfarin SERVICES Therapeutic range 2.0 to 3.0 or 2.5 to 3.5, depending upon the indications. Specimen Blood - CENTRAL VENOUS LINE Performing Organization Address [facility] Phone Number [facility]ORATORY SERVICES CLIA: [id number], [address] [place] [address] 77 555 [facility] MRSA / MSSA Screen by PCR, Nares (09/10/2019 11:29 AM HOSPICE MANAGER) Pathologist [facility] MRSA Screen by PCR, Negative Negative [facility]ORAT[facility] Nares SERVICES MSSA Screen by PCR, Negative Negative [facility] Nares SERVICES MRSA/MSSA Positive? No No [facility]ORATORY SERVICES Specimen Swab - NARES, BOTH SIDES Performing Organization Address [facility] Phone Number [facility]ORATORY SERVICES CLIA: [id number], [address] [place] [address] 77 555 [facility] TROPONIN I (09/10/2019 11:28 AM HOSPICE MANAGER) Pathologist Sig [facility] TROPONIN I 0.240 (H) <=0.034 ng/mL [facility] LABORATORY SERVICES Specimen Blood - CENTRAL VENOUS LINE Narrative Performed At Equal or Less than 0.034 ng/ml---Normal [facility]ORATORY SERVICES Note: Cardiac troponin begins to rise 3-4 hours after the onset of ischemia. Repeat in 4-6 hours if the sample w as drawn within 3-4 hours of the onset of the symptom and found normal. Between 0.035 and 0.120 ng/mL--- Borderline. Questiona ble myocardial injury or necrosis Note: Serial measurement may be necessary to confirm o r exclude the diagnosis of myocardial injury or necrosis ; Clinical correlation (symptoms, EKGs, imaging studies, and others) required; Repeat in 4-6 hours if clinically indicated. Equal or Higher than 0.121 ng/mL---Abnormal. Myocardia l Injury or Necrosis Likely Biotin has been reported to cause a negative bias, int erpret results relative to patient's use of biotin. Performing Organization Address City/State/Zipcode Phone Number [facility]ORATORY SERVICES CLIA: [id number], [address] [place], [place] 77 555 [facility] Basic Metabolic Panel (Na, K, Cl, CO2, Glucose, BUN, Creatinine, Ca) (09/10/2019 11:28 AM HOSPICE MANAGER) [facility] NA 141 135 - 145 [facility] mmol/L SERVICES K 4.5 3.5 - 5.0 [facility]OR[facility] mmol/L SERVICES CL 117 (H) 98 - 108 mmol/L [facility]ORATORY SERVICES CO2 TOTAL 15 (L) 23 - 31 mmol/L [facility] LABORATORY SERVICES AGAP 9 2 - 16 [facility]AT[facility] SERVICES BUN 20 7 - 23 mg/dL [facility] LABORATORY SERVICES GLUCOSE 209 (H) 70 - 110 mg/dL [facility] LABORATORY SERVICES CREATININE 0.82 0.60 - 1.25 [facility] mg/dL SERVICES CALCIUM 8.0 (L) 8.6 - 10.6 [facility] mg/dL SERVICES eGFR Calculation 97.5 mL/min/1.73m2 [facility] LABOR[facility] (Non- SERVICES Guamanian) eGFR Calculation 118.2 mL/min/1.73m2 [facility] () SERVICES Specimen Blood - CENTRAL VENOUS LINE Narrative Performed At Association of Glomerular Filtration Rate (GFR) and St aging [facility] LABORATORY SERVICES of Kidney Disease* + + +------- ------ + | GFR (mL/min/1.73 m2) | With Kidney Damage | Wi thout Kidney Damage + + +------- ------ + | >90 | Stage one | Normal + + +------- ------ + | 60-89 | Stage two | Decreased GFR + + +------- ------ + | 30-59 | Stage three | Stage three + + +------- ------ + | 15-29 | Stage four | Stage four + + +------- ------ + | <15 (or dialysis) | Stage five | Stage five + + +------- ------ + *Each stage assumes the associated GFR level has been in effect for at least three months. Stages 1 to 5, wit h or without kidney disease, indicate chronic kidney disease. Notes: Determination of stages one and two (with eGFR >59mL/min/1.73 m2) requires estimation of kidney damag e for at least three months as defined by structural or func tional abnormalities of the kidney, manifested by either: Pathological abnormalities or Markers of kidney damage (including abnormalities in the composition of the blo od or urine or abnormalities in imaging tests) . Performing Organization Address City/State/Zipcode Phone Number [facility]ORATORY SERVICES CLIA: [id number], [address] [place] [address] 77 555 [facility] POCT GLUCOSE (AUTOMATED) (09/10/2019 7:57 AM HOSPICE MANAGER) Pathologist [facility] POCT GLU 248 (H) 70 - 110 mg/dL [facility] Specimen Blood Performing Organization Address City/[facility]/Zipcode Phone Number [facility] CLIA: [id number], [address] [place] [address] 7[address] [facility] ABG+COOX+NA+K+GLU+CA2+ (09/10/2019 7:48 AM HOSPICE MANAGER) Pathologist [facility] 8digits PH 7.22 (L) 7.35 - 7.45 [facility]ORATORY SERVICES PCO2 32 (L) 35 - 45 mmHg [facility] PO2 180 (H) 80 - 100 mmHg [facility] HCO3 13 (L) 22 - 26 mEq/L [facility] SERVICES BE -13.8 (L) -3.0 - 3.0 mEq/L [facility] THB 11.2 (L) 13.5 - 18.0 g/dL [facility] SERVICES %O2HB 97.8 94.0 - 99.0 % [facility] SERVICES %COHB ART 0.3 0.0 - 1.5 % [facility] SERVICES %METHB ART 0.2 (L) 0.4 - 1.5 % [facility]ATORY SERVICES VOL%O2 ART 15.8 15.0 - 23.0 % [facility]ATORY SERVICES NA 139 135 - 145 mmol/L [facility] K+ 4.4 3.5 - 5.0 mmol/L [facility] AC CA IONZ 5.00 4.50 - 5.30 mg/dL [facility] LABORATORY SERVICE S GLUCOSE 268 (H) 70 - 110 mg/dL [facility] SERVICES Specimen Blood - ARTERIAL Performing Organization Address City/State/Zipcode Phone Number [facility]ATORY [facility] CLIA: [id number], [address] [place] [address] 77 555 [facility] TROPONIN I (09/10/2019 6:42 AM HOSPICE MANAGER) Pathologist [facility] 8digits TROPONIN I 0.356 (H) <=0.034 ng/mL [facility]ATORY SERVICES Specimen Blood - VENOUS Narrative Performed At Equal or Less than 0.034 ng/ml---Normal [facility] Note: Cardiac troponin begins to rise 3-4 hours after the onset of ischemia. Repeat in 4-6 hours if the sample w as drawn within 3-4 hours of the onset of the symptom and found normal. Between 0.035 and 0.120 ng/mL--- Borderline. Questiona ble myocardial injury or necrosis Note: Serial measurement may be necessary to confirm o r exclude the diagnosis of myocardial injury or necrosis ; Clinical correlation (symptoms, EKGs, imaging studies, and others) required; Repeat in 4-6 hours if clinically indicated. Equal or Higher than 0.121 ng/mL---Abnormal. Myocardia l Injury or Necrosis Likely Biotin has been reported to cause a negative bias, int erpret results relative to patient's use of biotin. Performing Organization Address City/[facility] Centercode Phone Number [facility]ATORY SERVICES CLIA: [id number], [address] [place] [address] 77 [phone] [facility] Basic Metabolic Panel (Na, K, Cl, CO2, Glucose, BUN, Creatinine, Ca) (09/10/2019 6:42 AM HOSPICE MANAGER) Pathologist Sig 8digits NA 141 135 - 145 [facility] mmol/L SERVICES K 4.4 3.5 - 5.0 [facility] mmol/L SERVICES CL 120 (H) 98 - 108 mmol/L [facility] SERVICES CO2 TOTAL 12 (L) 23 - 31 mmol/L [facility]AT[facility] SERVICES AGAP 9 2 - 16 [facility] SERVICES BUN 20 7 - 23 mg/dL [facility] SERVICES GLUCOSE 236 (H) 70 - 110 mg/dL [facility] SERVICES CREATININE 0.69 0.60 - 1.25 [facility] mg/dL SERVICES CALCIUM 7.0 (L) 8.6 - 10.6 [facility] mg/dL SERVICES eGFR Calculation 119.0 mL/min/1.73m2 [facility] (Non- SERVICES Gu[place]ian) eGFR Calculation 144.3 mL/min/1.73m2 [facility] () SERVICES Specimen Blood - VENOUS Narrative Performed At Association of Glomerular Filtration Rate (GFR) and St aging [facility] SERVICES of Kidney Disease* + + +------- ------ + | GFR (mL/min/1.73 m2) | With Kidney Damage | Wi thout Kidney Damage + + +------- ------ + | >90 | Stage one | Normal + + +------- ------ + | 60-89 | Stage two | Decreased GFR + + +------- ------ + | 30-59 | Stage three | Stage three + + +------- ------ + | 15-29 | Stage four | Stage four + + +------- ------ + | <15 (or dialysis) | Stage five | Stage five + + +------- ------ + *Each stage assumes the associated GFR level has been in effect for at least three months. Stages 1 to 5, wit h or without kidney disease, indicate chronic kidney disease. Notes: Determination of stages one and two (with eGFR >59mL/min/1.73 m2) requires estimation of kidney damag e for at least three months as defined by structural or func tional abnormalities of the kidney, manifested by either: Pathological abnormalities or Markers of kidney damage (including abnormalities in the composition of the blo od or urine or abnormalities in imaging tests) . Performing Organization Address City/State/Zipcode Phone Number [facility] CLIA: [id number], [address] [place] [address] 77 555 [facility] POCT GLUCOSE (AUTOMATED) (09/10/2019 6:23 AM HOSPICE MANAGER) [facility] 8digits POCT GLU 243 (H) 70 - 110 mg/dL [facility] Specimen Blood Performing Organization Address City/[facility]/Zipcode Phone Number [facility] CLIA: [id number], [address] [place] [address] 7[address] [facility] POCT GLUCOSE(AGE >30DAYS) (09/10/2019 6:15 AM HOSPICE MANAGER) Pathologist [facility] nature POCT Glu (age>30days) 243 (A) 70 - 110 mg/dL Specimen Blood - CAPILLARY POCT GLUCOSE(AGE >30DAYS) (09/10/2019 4:15 AM HOSPICE MANAGER) Pathologist Sig nature POCT Glu (age>30days) 186 (A) 70 - 110 mg/dL Specimen Blood - CAPILLARY Basic Metabolic Panel (Na, K, Cl, CO2, Glucose, BUN, Creatinine, Ca) (09/10/2019 4:14 AM HOSPICE MANAGER) Pathologist Sig nature NA 140 135 - 145 [facility] mmol/L SERVICES K 4.4 3.5 - 5.0 [facility] mmol/L SERVICES CL 119 (H) 98 - 108 mmol/L [facility] SERVICES CO2 TOTAL 13 (L) 23 - 31 mmol/L [facility]ORAT[facility] SERVICES AGAP 8 2 - 16 [facility] SERVICES BUN 20 7 - 23 mg/dL [facility] SERVICES GLUCOSE 163 (H) 70 - 110 mg/dL [facility] SERVICES CREATININE 0.77 0.60 - 1.25 [facility] mg/dL SERVICES CALCIUM 7.7 (L) 8.6 - 10.6 [facility] mg/dL SERVICES eGFR Calculation 104.9 mL/min/1.73m2 [facility] (Non- SERVICES Gu[place]ian) eGFR Calculation 127.1 mL/min/1.73m2 [facility] () SERVICES Specimen Blood - VENOUS Narrative Performed At Association of Glomerular Filtration Rate (GFR) and St aging [facility] SERVICES of Kidney Disease* + + +------- ------ + | GFR (mL/min/1.73 m2) | With Kidney Damage | Wi thout Kidney Damage + + +------- ------ + | >90 | Stage one | Normal + + +------- ------ + | 60-89 | Stage two | Decreased GFR + + +------- ------ + | 30-59 | Stage three | Stage three + + +------- ------ + | 15-29 | Stage four | Stage four + + +------- ------ + | <15 (or dialysis) | Stage five | Stage five + + +------- ------ + *Each stage assumes the associated GFR level has been in effect for at least three months. Stages 1 to 5, wit h or without kidney disease, indicate chronic kidney disease. Notes: Determination of stages one and two (with eGFR >59mL/min/1.73 m2) requires estimation of kidney damag e for at least three months as defined by structural or func tional abnormalities of the kidney, manifested by either: Pathological abnormalities or Markers of kidney damage (including abnormalities in the composition of the blo od or urine or abnormalities in imaging tests) . Performing Organization Address City/State/Zipcode Phone Number [facility] CLIA: [id number], [address] [place] [address] 77 555 [facility] POCT GLUCOSE (AUTOMATED) (09/10/2019 4:11 AM HOSPICE MANAGER) Pathologist Sig nature POCT GLU 186 (H) 70 - 110 mg/dL [facility] Specimen Blood Performing Organization Address City/[facility] Centercowi Phone Number [facility] CLIA: [id number], [address] [place] [address] 7[address] [facility] POCT GLUCOSE (AUTOMATED) (09/10/2019 4:08 AM HOSPICE MANAGER) Pathologist Sig nature POCT GLU 357 (H) 70 - 110 mg/dL [facility] Specimen Blood Performing Organization Address [facility] Phone Number [facility] CLIA: [id number], [address] [place] [address] 7[address] [facility] POCT GLUCOSE (AUTOMATED) (09/10/2019 2:45 AM HOSPICE MANAGER) Pathologist Sig nature POCT GLU 142 (H) 70 - 110 mg/dL [facility] Specimen Blood Performing Organization Address [facility] Phone Number [facility] CLIA: [id number], [address] [place] [address] 7[address] [facility] POCT GLUCOSE (AUTOMATED) (09/10/2019 1:44 AM HOSPICE MANAGER) Pathologist Sig nature POCT GLU 163 (H) 70 - 110 mg/dL [facility] Specimen Blood Performing Organization Address [facility] Phone Number [facility] CLIA: [id number], [address] [place] [address] 7[address] [facility] POCT GLUCOSE(AGE >30DAYS) (09/10/2019 1:40 AM HOSPICE MANAGER) Pathologist Sig nature POCT Glu (age>30days) 163 (A) 70 - 110 mg/dL Specimen Blood - CAPILLARY Basic Metabolic Panel (Na, K, Cl, CO2, Glucose, BUN, Creatinine, Ca) (09/10/2019 1:12 AM HOSPICE MANAGER) NA 140 135 - 145 [facility] mmol/L SERVICES K 5.0Comment: 3.5 - 5.0 [facility] Slight hemolysis mmol/L SERVICES CL 114 (H) 98 - 108 [facility] mmol/L SERVICES CO2 TOTAL 18 (L) 23 - 31 [facility] mmol/L SERVICES AGAP 8 2 - 16 [facility] SERVICES BUN 24 (H)Comment: 7 - 23 mg/dL [facility] Slight hemolysis SERVICES GLUCOSE 172 (H) 70 - 110 [facility] mg/dL SERVICES CREATININE 0.89 0.60 - 1.25 [facility] mg/dL SERVICES CALCIUM 9.2 8.6 - 10.6 [facility] mg/dL SERVICES eGFR Calculation 88.7 mL/min/1.73m2 [facility] (Non- SERVICES [place]ian) eGFR Calculation 107.6 mL/min/1.73m2 [facility] () SERVICES Specimen Blood - ARM, RIGHT Narrative Performed At Association of Glomerular Filtration Rate (GFR) and St aging [facility] SERVICES of Kidney Disease* + + +------- ------ + | GFR (mL/min/1.73 m2) | With Kidney Damage | Wi [facility] Kidney Damage + + +------- ------ + | >90 | Stage one | Normal + + +------- ------ + | 60-89 | Stage two | Decreased GFR + + +------- ------ + | 30-59 | Stage three | Stage three + + +------- ------ + | 15-29 | Stage four | Stage four + + +------- ------ + | <15 (or dialysis) | Stage five | Stage five + + +------- ------ + *Each stage assumes the associated GFR level has been in effect for at least three months. Stages 1 to 5, wit h or without kidney disease, indicate chronic kidney disease. Notes: Determination of stages one and two (with eGFR >59mL/min/1.73 m2) requires estimation of kidney damag e for at least three months as defined by structural or func tional abnormalities of the kidney, manifested by either: Pathological abnormalities or Markers of kidney damage (including abnormalities in the composition of the blo od or urine or abnormalities in imaging tests) . Performing Organization Address City/State/Zipcode Phone Number [facility] CLIA: [id number], [address] [place] [address] 555 [facility] POCT GLUCOSE (AUTOMATED) (09/10/2019 12:41 AM HOSPICE MANAGER) Pathologist Sig nature POCT GLU 179 (H) 70 - 110 mg/dL [facility] Specimen Blood Performing Organization Address City/[facility] Centercode Phone Number [facility] CLIA: [id number], [address] [place] [address] 7[address] [facility] POCT GLUCOSE(AGE >30DAYS) (09/10/2019 12:40 AM HOSPICE MANAGER) Pathologist Sig nature POCT Glu (age>30days) 179 (A) 70 - 110 mg/dL Specimen Blood - CAPILLARY POCT GLUCOSE (AUTOMATED) (09/09/2019 11:35 PM HOSPICE MANAGER) Pathologist Sig nature POCT GLU 223 (H) 70 - 110 mg/dL [facility] Specimen Blood Performing Organization Address [facility] Phone Number [facility] CLIA: [id number], [address] [place] [address] 7[address] [facility] POCT GLUCOSE(AGE >30DAYS) (09/09/2019 11:35 PM HOSPICE MANAGER) Pathologist Sig nature POCT Glu (age>30days) 223 (A) 70 - 110 mg/dL Specimen Blood - CAPILLARY POCT GLUCOSE (AUTOMATED) (09/09/2019 10:33 PM HOSPICE MANAGER) Pathologist Sig nature POCT GLU 277 (H) 70 - 110 mg/dL [facility] Specimen Blood Performing Organization Address City/[facility] Phone Number [facility] CLIA: [id number], [address] [place] [address] 7[address] [facility] POCT GLUCOSE(AGE >30DAYS) (09/09/2019 10:30 PM HOSPICE MANAGER) Pathologist Sig nature POCT Glu (age>30days) 277 (A) 70 - 110 mg/dL Specimen Blood - CAPILLARY Basic Metabolic Panel (Na, K, Cl, CO2, Glucose, BUN, Creatinine, Ca) (09/09/2019 10:09 PM HOSPICE MANAGER) NA 139 135 - 145 [facility] mmol/L SERVICES K 5.0Comment: 3.5 - 5.0 [facility] Slight hemolysis mmol/L SERVICES CL 111 (H) 98 - 108 [facility] mmol/L SERVICES CO2 TOTAL 15 (L) 23 - 31 [facility] mmol/L SERVICES AGAP 13 2 - 16 [facility] SERVICES BUN 24 (H)Comment: 7 - 23 mg/dL [facility] Slight hemolysis SERVICES GLUCOSE 282 (H) 70 - 110 [facility] mg/dL SERVICES CREATININE 0.98 0.60 - 1.25 [facility] mg/dL SERVICES CALCIUM 9.8 8.6 - 10.6 [facility] mg/dL SERVICES eGFR Calculation 79.4 mL/min/1.73m2 [facility] (Non- SERVICES [place]ian) eGFR Calculation 96.2 mL/min/1.73m2 [facility] () SERVICES Specimen Blood - VENOUS Narrative Performed At Association of Glomerular Filtration Rate (GFR) and St aging [facility] SERVICES of Kidney Disease* + + +------- ------ + | GFR (mL/min/1.73 m2) | With Kidney Damage | Wi thout Kidney Damage + + +------- ------ + | >90 | Stage one | Normal + + +------- ------ + | 60-89 | Stage two | Decreased GFR + + +------- ------ + | 30-59 | Stage three | Stage three + + +------- ------ + | 15-29 | Stage four | Stage four + + +------- ------ + | <15 (or dialysis) | Stage five | Stage five + + +------- ------ + *Each stage assumes the associated GFR level has been in effect for at least three months. Stages 1 to 5, wit h or without kidney disease, indicate chronic kidney disease. Notes: Determination of stages one and two (with eGFR >59mL/min/1.73 m2) requires estimation of kidney damag e for at least three months as defined by structural or func tional abnormalities of the kidney, manifested by either: Pathological abnormalities or Markers of kidney damage (including abnormalities in the composition of the blo od or urine or abnormalities in imaging tests) . Performing Organization Address City/State/Zipcode Phone Number [facility] CLIA: [id number], [address] [place] [address] 555 [facility] POCT GLUCOSE (AUTOMATED) (09/09/2019 9:02 PM HOSPICE MANAGER) [facility] POCT GLU 323 (H) 70 - 110 mg/dL [facility] Specimen Blood Performing Organization Address City/[facility]/Zipcode Phone Number [facility] CLIA: [id number], [address] [place] [address] [address] [facility] POCT GLUCOSE(AGE >30DAYS) (09/09/2019 9:00 PM HOSPICE MANAGER) Pathologist Sig nature POCT Glu (age>30days) 323 (A) 70 - 110 mg/dL Specimen Blood - CAPILLARY ABG+COOX+NA+K+GLU+CA2+ (09/09/2019 7:48 PM HOSPICE MANAGER) Pathologist [facility] PH 7.18 (LL) 7.35 - 7.45 [facility] PCO2 29 (L) 35 - 45 mmHg [facility] PO2 247 (H) 80 - 100 mmHg [facility] HCO3 11 (L) 22 - 26 mEq/L [facility] BE -16.3 (L) -3.0 - 3.0 mEq/L [facility] THB 12.7 (L) 13.5 - 18.0 g/dL [facility] %O2HB 98.2 94.0 - 99.0 % [facility] %COHB ART 0.3 0.0 - 1.5 % [facility] %METHB ART 0.2 (L) 0.4 - 1.5 % [facility] VOL%O2 ART 18.1 15.0 - 23.0 % [facility] NA 137 135 - 145 mmol/L [facility] K+ 4.3 3.5 - 5.0 mmol/L [facility] AC CA IONZ 5.50 (H) 4.50 - 5.30 mg/dL [facility] S GLUCOSE 394 (H) 70 - 110 mg/dL [facility] Specimen Blood - WRIST, RIGHT Performing Organization Address City/State/Zipcode Phone Number [facility] CLIA: [id number], [address] [place] [address] 555 [facility] POCT GLUCOSE (AUTOMATED) (09/09/2019 6:32 PM HOSPICE MANAGER) Pathologist Sig nature POCT GLU 417 (H) 70 - 110 mg/dL [facility] Specimen Blood Performing Organization Address City/State/Zipcode Phone Number [facility] CLIA: [id number], [address] [place], [place] [address] [facility] Basic Metabolic Panel (Na, K, Cl, CO2, Glucose, BUN, Creatinine, Ca) (09/09/2019 6:30 PM HOSPICE MANAGER) [facility] [place] muro NA 139 135 - 145 [facility] mmol/L SERVICES K 4.1 3.5 - 5.0 [facility] mmol/L SERVICES CL 107 98 - 108 mmol/L [facility] CO2 TOTAL 11 (L) 23 - 31 mmol/L [facility] AGAP 21 (H) 2 - 16 [facility] BUN 22 7 - 23 mg/dL [facility] GLUCOSE 439 (H) 70 - 110 mg/dL [facility] CREATININE 1.04 0.60 - 1.25 [facility] mg/dL SERVICES CALCIUM 9.6 8.6 - 10.6 [facility] mg/dL SERVICES eGFR Calculation 74.1 mL/min/1.73m2 [facility] (Non- SERVICES [place]ian) eGFR Calculation 89.9 mL/min/1.73m2 [facility] () SERVICES Specimen Blood - VENOUS Narrative Performed At Association of Glomerular Filtration Rate (GFR) and St aging [facility] of Kidney Disease* + + +------- ------ + | GFR (mL/min/1.73 m2) | With Kidney Damage | [facility] Kidney Damage + + +------- ------ + | >90 | Stage one | Normal + + +------- ------ + | 60-89 | Stage two | Decreased GFR + + +------- ------ + | 30-59 | Stage three | Stage three + + +------- ------ + | 15-29 | Stage four | Stage four + + +------- ------ + | <15 (or dialysis) | Stage five | Stage five + + +------- ------ + *Each stage assumes the associated GFR level has been in effect for at least three months. Stages 1 to 5, wit h or without kidney disease, indicate chronic kidney disease. Notes: Determination of stages one and two (with eGFR >59mL/min/1.73 m2) requires estimation of kidney damag e for at least three months as defined by structural or func tional abnormalities of the kidney, manifested by either: Pathological abnormalities or Markers of kidney damage (including abnormalities in the composition of the blo od or urine or abnormalities in imaging tests) . Performing Organization Address City/State/Zipcode Phone Number [facility] CLIA: [id number], [address] [place] [address] 555 [facility] XR KUB (09/09/2019 6:29 PM HOSPICE MANAGER) Specimen Impressions Performed At PACS/VR/DOSE Right common femoral vein central venous catheter tip projects over the right sacral tuan (presumably in the rig ht common iliac vein). Preliminary Report Dictated by Resident: Nahun Garcia MD., have review ed this study and agree with the above report. Narrative Performed At EXAM: XR KUB PACS/VR/DOSE COMPARISON: None available. TECHNIQUE: Two AP radiographs of the abd omen were obtained. HISTORY: right femoral CVC placement con firmation FINDINGS: A right common femoral approach central venous cathete r projects over the right sacral tuan, presumably within the right common iliac artery. Relative paucity of small bowel gas. No abnormal calcifications or radiopaque stones are identified. A Casanova catheter overlies the pelvis. Procedure Note [facility], Radiant Results Inft User - 2019 7:40 PM HOSPICE MANAGER EXAM: XR KUB COMPARISON: None available. TECHNIQUE: Two AP radiographs of the abd omen were obtained. HISTORY: right femoral CVC placement con firmation FINDINGS: A right common femoral approach central venous catheter projects over the right sacral tuan, presumably within the right common iliac artery. Relative paucity of small bowel gas. No abnormal calcifications or radiopaque stones are identified. A Casanova catheter overlies the pelvis. IMPRESSION Right common femoral vein central venous catheter tip projects over the right sacral tuan (presumably in the rig ht common iliac vein). Preliminary Report Dictated by Resident: Nahun Garcia MD., have reviewe d this study and agree with the above report. Performing Organization Address City/State/Zipcode Phone Number PACS/VR/DOSE Lactic Acid Whole Blood (09/09/2019 5:30 PM HOSPICE MANAGER) Pathologist Sig nature LACTIC ACID 2.71 (H) 0.50 - 2.20 mmol/L [facility] Specimen Blood Performing Organization Address City/State/Zipcode Phone Number [facility] CLIA: [id number], [address] [place], [place] [address] [address] [facility] TROPONIN I (09/09/2019 5:29 PM HOSPICE MANAGER) [facility] TROPONIN I 0.058 (H) <=0.034 ng/mL [facility] Specimen Blood - VENOUS Narrative Performed At Equal or Less than 0.034 ng/ml---Normal [facility] Note: Cardiac troponin begins to rise 3-4 hours after the onset of ischemia. Repeat in 4-6 hours if the sample w as drawn within 3-4 hours of the onset of the symptom and found normal. Between 0.035 and 0.120 ng/mL--- Borderline. Questiona ble myocardial injury or necrosis Note: Serial measurement may be necessary to confirm o r exclude the diagnosis of myocardial injury or necrosis ; Clinical correlation (symptoms, EKGs, imaging studies, and others) required; Repeat in 4-6 hours if clinically indicated. Equal or Higher than 0.121 ng/mL---Abnormal. Myocardia l Injury or Necrosis Likely Biotin has been reported to cause a negative bias, int erpret results relative to patient's use of biotin. Performing Organization Address City/State/Zipcode Phone Number [facility] CLIA: [id number], [address] [place] [address] 555 [facility] POCT GLUCOSE (AUTOMATED) (09/09/2019 5:23 PM HOSPICE MANAGER) [facility] POCT GLU 482 (HH) 70 - 110 mg/dL [facility] Specimen Blood Performing Organization Address City/State/Zipcode Phone Number [facility] CLIA: [id number], [address] [place] [address] [facility] ABG+COOX+NA+K+GLU+CA2+ (09/09/2019 4:44 PM HOSPICE MANAGER) Pathologist [facility] 8digits PH 6.87 (LL) 7.35 - 7.45 [facility] PCO2 32 (L) 35 - 45 mmHg [facility] PO2 161 (H) 80 - 100 mmHg [facility] HCO3 6 (L) 22 - 26 mEq/L [facility] BE -27.2 (L) -3.0 - 3.0 mEq/L [facility] THB 13.6 13.5 - 18.0 g/dL [facility] %O2HB 96.9 94.0 - 99.0 % [facility] %COHB ART 0.3 0.0 - 1.5 % [facility] %METHB ART 0.3 (L) 0.4 - 1.5 % [facility] VOL%O2 ART 18.8 15.0 - 23.0 % [facility] NA 138 135 - 145 mmol/L [facility] K+ 4.2 3.5 - 5.0 mmol/L [facility] AC CA IONZ 5.70 (H) 4.50 - 5.30 mg/dL [facility] SERVICE S GLUCOSE 543 (HH) 70 - 110 mg/dL [facility] Specimen Blood Performing Organization Address City/State/Zipcode Phone Number [facility] CLIA: [id number], [address] [place], [place] [address] [address] [facility] XR CHEST 1 VW (09/09/2019 4:38 PM HOSPICE MANAGER) Specimen Impressions Performed At PACS/VR/DOSE Tip of the endotracheal tube projects 3. 2 cm above the krystyna. Esophogastric tube tip projects over the stomach fundu s with its side port projecting a few centimeters past the GE junction with in the stomach lumen. Preliminary Report Dictated by Resident: Estela Grier I, Nahun Echols MD., have review ed this study and agree with the above report. Narrative Performed At EXAM: XR CHEST 1 VW PACS/VR/DOSE COMPARISON: Multiple chest radiographs a nd back to 01/08/2019 HISTORY: intubatioon FINDINGS: Lines/Tubes: Tip of the endotracheal tube projects 3.2 cm from the krystyna. Lungs: The lungs are clear. No pleural e ffusion or pneumothorax is identified. Heart/Mediastinum: The cardiomediastinal silhouette is normal in size. Bones: No acute osseous abnormality is seen. No acute rib fracture within limits of single AP exam. Defibrillator pads project over the left chest. Procedure Note [facility], Radiant Results Inft User - 2019 6:02 PM HOSPICE MANAGER EXAM: XR CHEST 1 VW COMPARISON: Multiple chest radiographs a nd back to 01/08/2019 HISTORY: intubatioon FINDINGS: Lines/Tubes: Tip of the endotracheal tub e projects 3.2 cm from the krystyna. Lungs: The lungs are clear. No pleural e ffusion or pneumothorax is identified. Heart/Mediastinum: The cardiomediastinal silhouette is normal in size. Bones: No acute osseous abnormality is s een. No acute rib fracture within limits of single AP exam. Defibrillator pads project over the left chest. IMPRESSION Tip of the endotracheal tube projects 3. 2 cm above the krystyna. Esophogastric tube tip projects over the stomach fundus with its side port projecting a few centimeters past the GE junction within the stomach lumen. Preliminary Report Dictated by Resident: Estela Grier I, Nahun Echols MD., have reviewe d this study and agree with the above report. Performing Organization Address City/State/Zipcode Phone Number PACS/VR/DOSE POCT GLUCOSE (AUTOMATED) (09/09/2019 4:14 PM HOSPICE MANAGER) Pathologist Sig nature POCT GLU >600 (HH) 70 - 110 mg/dL [facility] Specimen Blood Performing Organization Address City/[facility]/Zipcode Phone Number [facility] CLIA: [id number], [address] [place] [address] [facility] POCT GLUCOSE(AGE >30DAYS) (09/09/2019 4:10 PM HOSPICE MANAGER) Pathologist Sig nature POCT Glu (age>30days) HI 70 - 110 mg/dL Specimen Blood - CAPILLARY Basic Metabolic Panel (Na, K, Cl, CO2, Glucose, BUN, Creatinine, Ca) (09/09/2019 3:58 PM HOSPICE MANAGER) NA 134 (L) 135 - 145 [facility] mmol/L SERVICES K 6.4 (HH) 3.5 - 5.0 [facility] mmol/L SERVICES CL 101 98 - 108 mmol/L [facility] CO2 TOTAL 9 (L) 23 - 31 mmol/L [facility] AGAP 24 (H) 2 - 16 [facility] BUN 23 7 - 23 mg/dL [facility] GLUCOSE 653 (HH) 70 - 110 mg/dL [facility] CREATININE 1.14 0.60 - 1.25 [facility] mg/dL SERVICES CALCIUM 8.6 8.6 - 10.6 [facility] mg/dL SERVICES eGFR Calculation 66.7 mL/min/1.73m2 [facility] (Non- SERVICES [place]ian) eGFR Calculation 80.8 mL/min/1.73m2 [facility] () SERVICES Specimen Blood - VENOUS Narrative Performed At Association of Glomerular Filtration Rate (GFR) and St aging [facility] of Kidney Disease* + + +------- ------ + | GFR (mL/min/1.73 m2) | With Kidney Damage | [facility] Kidney Damage + + +------- ------ + | >90 | Stage one | Normal + + +------- ------ + | 60-89 | Stage two | Decreased GFR + + +------- ------ + | 30-59 | Stage three | Stage three + + +------- ------ + | 15-29 | Stage four | Stage four + + +------- ------ + | <15 (or dialysis) | Stage five | Stage five + + +------- ------ + *Each stage assumes the associated GFR level has been in effect for at least three months. Stages 1 to 5, wit h or without kidney disease, indicate chronic kidney disease. Notes: Determination of stages one and two (with eGFR >59mL/min/1.73 m2) requires estimation of kidney damag e for at least three months as defined by structural or func tional abnormalities of the kidney, manifested by either: Pathological abnormalities or Markers of kidney damage (including abnormalities in the composition of the blo od or urine or abnormalities in imaging tests) . Performing Organization Address City/State/Zipcode Phone Number [facility] CLIA: [id number], [address] [place] [address] [address] [facility] Urinalysis (09/09/2019 3:58 PM HOSPICE MANAGER) Pathologist Sig nature APPEARANCE Clear Clear [facility] COLOR Straw (A) Yellow [facility] PH 6.0 4.8 - 8.0 [facility] SP GRAVITY 1.016 1.003 - 1.030 [facility] GLU U QUAL 500 mg/dL (A) Normal [facility] BLOOD Negative Negative [facility] KETONES 80 mg/dL (A) Negative [facility] PROTEIN Negative Negative [facility] UROBILIN Normal Normal [facility] BILIRUBIN Negative Negative [facility] NITRITE Negative Negative [facility] LEUK SHEN Negative Negative [facility] RBC/HPF 2 0 - 3 HPF [facility] WBC/HPF 4 0 - 5 HPF [facility] BACTERIA Negative Negative [facility] MUCOUS Slight (A) Negative LPF [facility] SQ EPITH <1 <=2 HPF [facility] Specimen Urine - URINE, CLEAN CATCH Performing Organization Address [facility] Cent[facility] Phone Number [facility] CLIA: [id number], [address] [place] [address] [address] [facility] Glycosylated Hemoglobin (A1C) (09/09/2019 3:58 PM HOSPICE MANAGER) Pathologist Sig nature HGB A1C 10.0 (H) 4.0 - 6.0 % [facility] Specimen Blood - VENOUS Performing Organization Address [facility] Cent[facility]owi Phone Number [facility] CLIA: [id number], [address] [place] [address] [address] [facility] Betahydroxy-Butyrate (09/09/2019 3:58 PM HOSPICE MANAGER) Pathologist Sig nature BOH >9.0 mmol/L [facility] Specimen Blood - VENOUS Narrative Performed At Normal Ranges: [facility] Nonfasting Less th an 0.1 mmol/L Overnight Fast Less than 0.4 mmol/L Fasting (1-2 weeks) 6-8 mmol/L Test developed and characteristics determined by [facility]. Performing Organization Address [facility] Phone Number [facility] CLIA: [id number], [address] [place] [address] [address] [facility] Phosphorus Serum (09/09/2019 3:58 PM HOSPICE MANAGER) Pathologist Sig nature PHOSPHORUS 6.6 (H) 2.5 - 5.0 mg/dL [facility] Specimen Blood - VENOUS Performing Organization Address [facility] Phone Number [facility] CLIA: [id number], [address] [place] [address] [address] [facility] Magnesium Serum (09/09/2019 3:58 PM HOSPICE MANAGER) Pathologist Sig nature MAGNESIUM 2.1 1.7 - 2.4 mg/dL [facility] Specimen Blood - VENOUS Performing Organization Address [facility] Phone Number [facility] CLIA: [id number], [address] [place] [address] [address] [facility] Osmolality Serum (09/09/2019 3:58 PM HOSPICE MANAGER) Pathologist Sig nature OSMOLALITY 335 (HH) 278 - 305 mOsm/kg [facility] S Specimen Blood - VENOUS Performing Organization Address City/State/Zipcode Phone Number [facility] CLIA: [id number], [address] [place] [address] [address] [facility] POCT GLUCOSE(AGE >30DAYS) (09/09/2019 3:14 PM HOSPICE MANAGER) Pathologist Sig nature POCT Glu (age>30days) HI 70 - 110 mg/dL Specimen Blood - CAPILLARY POCT GLUCOSE (AUTOMATED) (09/09/2019 3:12 PM HOSPICE MANAGER) Pathologist Sig nature POCT GLU >600 (HH) 70 - 110 mg/dL [facility] Specimen Blood Performing Organization Address City/[facility]/Zipcode Phone Number [facility] CLIA: [id number], [address] [place] [address] [facility] Lactic Acid Whole Blood (09/09/2019 3:00 PM HOSPICE MANAGER) Pathologist Sig nature LACTIC ACID 3.15 (H) 0.50 - 2.20 mmol/L [facility] Specimen Blood Performing Organization Address City/[facility]/Zipcode Phone Number [facility] CLIA: [id number], [address] [place] [address] 555 [facility] ABG+COOX+NA+K+GLU+CA2+ (09/09/2019 3:00 PM HOSPICE MANAGER) Pathologist Sig nature PH 7.13 (LL) 7.35 - 7.45 [facility] PCO2 20 (L) 35 - 45 mmHg [facility] PO2 133 (H) 80 - 100 mmHg [facility] HCO3 7 (L) 22 - 26 mEq/L [facility] BE -20.7 (L) -3.0 - 3.0 mEq/L [facility] THB 14.5 13.5 - 18.0 g/dL [facility] %O2HB 97.1 94.0 - 99.0 % [facility] %COHB ART 0.3 0.0 - 1.5 % [facility] %METHB ART 0.3 (L) 0.4 - 1.5 % [facility] VOL%O2 ART 20.0 15.0 - 23.0 % [facility] NA 129 (L) 135 - 145 mmol/L [facility] K+ 6.2 (HH) 3.5 - 5.0 mmol/L [facility] AC CA IONZ 5.10 4.50 - 5.30 mg/dL [facility] SERVICE S GLUCOSE <20 (LL) 70 - 110 mg/dL [facility] Specimen Blood Performing Organization Address City/State/Zipcode Phone Number [facility] CLIA: [id number], [address] [place], [place] [address] [facility] XR CHEST 1 VW (09/09/2019 2:47 PM HOSPICE MANAGER) Specimen Impressions Performed At PACS/VR/DOSE No acute cardiopulmonary abnormality. Preliminary Report Dictated by Resident: Mckinley Garcia MD., have reviewed this study and agree with the above report. Narrative Performed At EXAM: XR CHEST 1 VW PACS/VR/DOSE COMPARISON: Multiple chest radiographs a nd back to 01/08/2019 HISTORY: shortness of breath, history of CAD, ho ischemic CM FINDINGS: Lines/Tubes: None. Lungs: The lungs are clear. No pleural e ffusion or pneumothorax is identified. Heart/Mediastinum: The cardiomediastinal silhouette is normal in size. Bones: No acute osseous abnormality is s een. Procedure Note [facility], Radiant Results Inft User - 2019 4:28 PM HOSPICE MANAGER EXAM: XR CHEST 1 VW COMPARISON: Multiple chest radiographs a nd back to 01/08/2019 HISTORY: shortness of breath, history of CAD, ho ischemic CM FINDINGS: Lines/Tubes: None. Lungs: The lungs are clear. No pleural e ffusion or pneumothorax is identified. Heart/Mediastinum: The cardiomediastinal silhouette is normal in size. Bones: No acute osseous abnormality is s een. IMPRESSION No acute cardiopulmonary abnormality. Preliminary Report Dictated by Resident: Mckinley Garcia MD., have reviewed t his study and agree with the above report. Performing Organization Address City/[facility]/Zipcode Phone Number PACS/VR/DOSE COMP. METABOLIC PANEL ([id number]) (09/09/2019 2:35 PM HOSPICE MANAGER) NA 135 135 - 145 [facility] mmol/L SERVICES K 6.5 (HH)Comment: 3.5 - 5.0 [facility] Slight hemolysis mmol/L SERVICES CL 91 (L) 98 - 108 [facility] mmol/L SERVICES CO2 TOTAL 6 (L) 23 - 31 [facility] mmol/L SERVICES AGAP 38 (H) 2 - 16 [facility] SERVICES BUN 23Comment: Slight 7 - 23 mg/dL [facility] hemolysis SERVICES GLUCOSE 730 (HH) 70 - 110 [facility] mg/dL SERVICES CREATININE 1.33 (H) 0.60 - 1.25 [facility] mg/dL SERVICES TOTAL BILI 0.8 0.1 - 1.1 [facility] mg/dL SERVICES CALCIUM 10.8 (H) 8.6 - 10.6 [facility] mg/dL SERVICES T PROTEIN 8.7 (H) 6.3 - 8.2 [facility] g/dL SERVICES ALBUMIN 5.5 (H) 3.5 - 5.0 [facility] g/dL SERVICES ALK PHOS 139 (H)Comment: 34 - 122 U/L [facility] Slight hemolysis SERVICES ALTv 29 5 - 50 U/L [facility] SERVICES AST(SGOT) 34Comment: Slight 13 - 40 U/L [facility] hemolysis SERVICES eGFR Calculation 55.8 mL/min/1.73m2 [facility] (Non- SERVICES [place]) eGFR Calculation 67.7 mL/min/1.73m2 [facility] () SERVICES Specimen Blood - VENOUS Narrative Performed At Association of Glomerular Filtration Rate (GFR) and St aging [facility] of Kidney Disease* + + +------- ------ + | GFR (mL/min/1.73 m2) | With Kidney Damage | [facility] Kidney Damage + + +------- ------ + | >90 | Stage one | Normal + + +------- ------ + | 60-89 | Stage two | Decreased GFR + + +------- ------ + | 30-59 | Stage three | Stage three + + +------- ------ + | 15-29 | Stage four | Stage four + + +------- ------ + | <15 (or dialysis) | Stage five | Stage five + + +------- ------ + *Each stage assumes the associated GFR level has been in effect for at least three months. Stages 1 to 5, wit h or without kidney disease, indicate chronic kidney disease. Notes: Determination of stages one and two (with eGFR >59mL/min/1.73 m2) requires estimation of kidney damag e for at least three months as defined by structural or func tional abnormalities of the kidney, manifested by either: Pathological abnormalities or Markers of kidney damage (including abnormalities in the composition of the blo od or urine or abnormalities in imaging tests) . Performing Organization Address City/State/Zipcode Phone Number [facility] CLIA: [id number], [address] [place], [place] [address] [facility] CBC WITH DIFFERENTIAL (09/09/2019 2:01 PM HOSPICE MANAGER) WBC 26.56 (H) 4.20 - 10.70 [facility] 10*3/L SERVICES RBC 4.98 4.26 - 5.52 [facility] 10*6/L SERVICES HGB 14.7 12.2 - 16.4 [facility] g/dL SERVICES HCT 45.5 38.4 - 49.3 % [facility] MCV 91.4 81.7 - 95.6 fL [facility] MCH 29.5 26.1 - 32.7 pg [facility] MCHC 32.3 31.2 - 35.0 [facility] g/dL SERVICES RDW-SD 44.7 38.5 - 51.6 fL [facility] RDW-CV 13.5 12.1 - 15.4 % [facility] PLT 410 (H) 150 - 328 [facility] 10*3/L SERVICES MPV 9.4 (L) 9.8 - 13.0 fL [facility] NRBC/100 WBC 0.0 0.0 - 10.0 [facility] /100 WBCs SERVICES NRBC x10^3 <0.01 10*3/L [facility] GRAN MAT (NEUT) % 82.3 % [facility] IMM GRAN % 1.50 % [facility] LYMPH % 9.2 % [facility] MONO % 6.3 % [facility] EOS % 0.2 % [facility] BASO % 0.5 % [facility] GRAN MAT 21.88 (H) 1.99 - 6.95 [facility] x10^3(ANC) 10*3/uL SERVICES IMM GRAN x10^3 0.41 (H) 0.00 - 0.06 [facility] 10*3/uL SERVICES LYMPH x10^3 2.44 1.09 - 3.23 [facility] 10*3/uL SERVICES MONO x10^3 1.67 (H) 0.36 - 1.02 [facility] 10*3/uL SERVICES EOS x10^3 0.04 (L) 0.06 - 0.53 [facility] 10*3/uL SERVICES BASO x10^3 0.12 (H) 0.01 - 0.09 [facility] 10*3/uL SERVICES COURTNEY CELLS 3+ (A) (none) [facility] BANDS Increased (A) [facility] Specimen Blood - VENOUS Performing Organization Address City/State/Zipcode Phone Number [facility] CLIA: [id number], [address] [place] [address] [facility] N-TERMINAL PRO-BNP (09/09/2019 2:01 PM HOSPICE MANAGER) Pathologist [facility] 8digits NT-proBNP 267 (H)Comment: <=125 pg/mL [facility] Hemolyzed specimen SERVICES Specimen Blood - VENOUS Narrative Performed At [facility] has been reported to cause a negative bias, int erpret [facility] results relative to patient's use of biotin. Performing Organization Address City/[facility] Phone Number [facility] CLIA: [id number], [address] [place] [address] [facility] TROPONIN I (09/09/2019 2:01 PM HOSPICE MANAGER) [facility] 8digits TROPONIN I 0.063 (H) <=0.034 ng/mL [facility] Specimen Blood - VENOUS Narrative Performed At Equal or Less than 0.034 ng/ml---Normal [facility] Note: Cardiac troponin begins to rise 3-4 hours after the onset of ischemia. Repeat in 4-6 hours if the sample w as drawn within 3-4 hours of the onset of the symptom and found normal. Between 0.035 and 0.120 ng/mL--- Borderline. Questiona ble myocardial injury or necrosis Note: Serial measurement may be necessary to confirm o r exclude the diagnosis of myocardial injury or necrosis ; Clinical correlation (symptoms, EKGs, imaging studies, and others) required; Repeat in 4-6 hours if clinically indicated. Equal or Higher than 0.121 ng/mL---Abnormal. Myocardia l Injury or Necrosis Likely Biotin has been reported to cause a negative bias, int erpret results relative to patient's use of biotin. 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, not stated as uncontrolled Shortness of breath Diabetic ketoacidosis without coma assoc iated with type 1 diabetes mellitus Hyperkalemia Hyperpotassemia Intubation of airway performed without d ifficulty Type 1 diabetes mellitus with complicati on Type I (juvenile type) diabetes mellitus with unspecified complication, not stated as uncontrolled E44.0 Moderate protein calorie malnutrit ion Malnutrition of moderate degree documented in this encounter Administered Medications Medication Order MAR Action Action Date Dose Rate Site acetaminophen (TYLENOL) tablet Given 09/12/2019 5:02 PM HOSPICE MANAGER 650 mg 650 mg 650 mg, Oral, Q6HPRN, Starting Wed09/11/19 at 1504, Until Discontinued, Routine, Pain (scale 1-3) Given 09/12/2019 8:51 AM HOSPICE MANAGER 650 mg Given 09/11/2019 4:33 PM HOSPICE MANAGER 650 mg alum-mag hydroxide-simeth (MAALOX PLUS / Given 09/12/2019 2:00 AM HOSPICE MANAGER 30 mL MAG-AL PLUS) 200-200-20 mg/5 mL suspension 30 mL 30 mL, Oral, Q6HPRN, Starting Wed09/11/19 at 2311, Until Discontinued, Routine, Indigestion aspirin chewable tablet 81 mg Given 09/13/2019 8:56 AM HOSPICE MANAGER 81 mg 81 mg, Enteral, DAILY, First dose on Wed09/10/19 at 0930, Until Discontinued, Routine Given 09/12/2019 8:52 AM HOSPICE MANAGER 81 mg Given 09/10/2019 12:39 PM HOSPICE MANAGER 81 mg atorvastatin (LIPITOR) tablet 40 mg Given 09/12/2019 10:10 PM HOSPICE MANAGER 40 mg 40 mg, Enteral, QHS, First dose on 09/11/19 at 2100, Until Discontinued, Routine Given 09/11/2019 8:29 PM HOSPICE MANAGER 40 mg benzocaine-menthol (CEPACOL SORE THROAT Given 09/13/2019 8: 56 AM HOSPICE MANAGER 1 Lozenge (CHELY-MEN)) lozenge 1 Lozenge 1 Lozenge, Oral, Q4HPRN, Starting Wed09/11/19 at 2046, Until Discontinued, Routine, Sore throat Given 09/11/2019 9:30 PM HOSPICE MANAGER 1 Lozenge clopidogreL (PLAVIX) tablet 75 mg Given 09/13/2019 8:56 AM HOSPICE MANAGER 75 mg 75 mg, Oral, DAILY, First dose on Wed09/13/19 at 0900, Until Discontinued, Routine flu vaccine 6 months and up (FLUZONE ES D (PF)) syringe 0.5 mL 0.5 mL, Intramuscular, ONCE, 1 dose, Wed09/13/19 at 18 30, Routine heparin (porcine) injection Given 09/13/2019 8:57 AM HOSPICE MANAGER 5,000 Units Abdomen-SC 5,000 Units 5,000 Units, Subcutaneous, Q12H, First dose on Wed09/11/19 at 0800, Until Discontinued, Routine Given 09/12/2019 10:13 PM HOSPICE MANAGER 5,000 Units Abdo men-SC Given 09/12/2019 8:52 AM HOSPICE MANAGER 5,000 Units Abdo men-SC insulin NPH (HUMULIN N) injection 10 Uni ts 10 Units, Subcutaneous, QAM, First dose on Wed09/14/19 at 0900, Until Discontinued, Routine insulin NPH (HUMULIN N) injection 6 Unit s 6 Units, Subcutaneous, QPM, First dose o n Wed09/13/19 at 1700, Until Discontinued, Routine insulin regular human (HUMULIN R) inject ion 3 Units 3 Units, Subcutaneous, BIDAC, First dose on Wed 0 at 1630, Until Discontinued, Routine metoprolol tartrate (LOPRESSOR) half tablet Given 08/26 8:56 AM HOSPICE MANAGER 12.5 mg 12.5 mg 12.5 mg, Oral, BID, First dose on Wed09/12/19 at 2000, Until Discontinued, Routine Given 09/12/2019 10:10 PM HOSPICE MANAGER 12.5 mg pantoprazole (PROTONIX) 40 mg in NaCl 0.9% Given 09/13/2019 8:5 7 AM HOSPICE MANAGER 40 mg (NS) 100 mL MINI-BAG 40 mg, IV Piggyback, DAILY, First dose on Wed09/11/19 at 0900, Until Discontinued, 100 mL Given 09/12/2019 8:52 AM HOSPICE MANAGER 40 mg Given 09/11/2019 7:41 AM HOSPICE MANAGER 40 mg phenol (SORE THROAT (PHENOL)) 1.4 % spray Given 09/13/2019 8:55 AM HOSPICE MANAGER 1 Malcom bottle 1 Malcom 1 Malcom, Oral, PRN, Starting 09/11/19 at 2056, Until Discontinued, Routine, Sore throat Given 09/12/2019 10:09 PM HOSPICE MANAGER 1 Malcom Sliding Scale Insulin - Aspart Given 09/13/2019 1:28 PM HOSPICE MANAGER 1 U nits Abdomen-SC (NOVOLOG) + Fsbg Testing Subcutaneous, Q4H, First dose on Wed09/12/19 at 1600, Until Discontinued, Routine Given 09/13/2019 9:37 AM HOSPICE MANAGER 2 Units Abdo men-SC Medication Order MAR Action Action Date Dose Rate Site alum-mag hydroxide-simeth (MAALOX Given 09/11/2019 6:15 PM HOSPICE MANAGER 30 mL PLUS / MAG-AL PLUS) 200-200-20 mg/5 mL suspension 30 mL 30 mL, Oral, ONCE, 1 dose, 09/11/19 at 1730, Routine calcium chloride 100 mg/mL (10 %) syringe Given 2019 4:03 PM HOSPICE MANAGER 1,000 mg 1,000 mg 1,000 mg, Intravenous, ONCE, 1 dose, 09/09/19 at 1700, STAT D5W 0.45% NaCl (1/2NS) 1 L + KCL 20 mEq New Bag 09/10/2019 12:47 AM HOSPICE MANAGER 150 mL/hr Intravenous, at 150 mL/hr, CONTINUOUS, Starting 09/10/19 at 0045, Until 09/10/19 at 1206, MACKENZIE D5W 0.45% NaCl (1/2NS) 1 L + KCL 20 mEq New Bag 09/11/2019 2:52 PM HOSPICE MANAGER 200 mL/hr IV Infusion, at 200 mL/hr, CONTINUOUS, Starting 09/10/19 at 1230, Until 09/11/19 at 1620, Routine New Bag 09/11/2019 9:33 AM HOSPICE MANAGER 200 mL/hr New Bag 09/11/2019 4:32 AM HOSPICE MANAGER 200 mL/hr D5W 0.45% NaCl (1/2NS) 1 L + KCL 20 mEq New Bag 09/11/2019 9:28 PM HOSPICE MANAGER 150 mL/hr IV Infusion, at 150 mL/hr, CONTINUOUS, Starting 09/11/19 at 1630, Until 09/11/19 at 2311, Routine New Bag 09/11/2019 4:25 PM HOSPICE MANAGER 150 mL/hr dextrose 10% (D10W) bolus infusion 250 m L Given 09/10/2019 8:30 PM HOSPICE MANAGER 250 mL 250 mL, IV Infusion, ONCE, Stanton 09/10/19 at 2130, For 1 dose, Dextrose 10% 250 mL bag contains: 10 gm = 100 mL 20 gm = 200 mL 25 gm = 250 mL (whole bag) The maximum rate at which dextrose can be infused without producing glycosuria is 0.5 g/kg/hour. BUD: If wrapper is open bag is good for 30 days at room temperature. , FENTanyl PF (SUBLIMAZE (PF)) Rate Change 09/11/2019 9:26 AM 25 mc g/hr 2.5 mL/hr 2,500 mcg in NaCl 0.9% (NS) HOSPICE MANAGER 250 mL infusion 25-300 mcg/hr (2.5-30 mL/hr), IV Infusion, TITRATE, CPOT/Pain Scale Goals Determined by Provider, Starting 09/09/19 at 1730, Initiate infusion at 25 mcg/hr. Titrate by 25 mcg/hr every 1 minute to 15 minutes to identified goal pain and/or sedation scores. Maximum dose = 300 mcg/hr. If goal not maintained at maximum allowed dose, contact prescriber., Rate Change 09/10/2019 8:08 PM HOSPICE MANAGER 50 mcg/hr 5 mL/hr Restarted 09/10/2019 3:31 PM HOSPICE MANAGER 75 mcg/hr 7.5 mL/hr FENTanyl PF (SUBLIMAZE (PF)) injection 50 Given 09/09/2019 9:56 PM HOSPICE MANAGER 50 mcg mcg 50 mcg, Slow IV Push, Q30MIN PRN, 3 doses, Starting 09/09/19 at 1439, Until 09/12/19 at 1430, MACKENZIE, Pain (scale 7-10) Given 09/09/2019 2:57 PM HOSPICE MANAGER 50 mcg heparin 1000 unit/mL injection Soln Given 09/10/2019 12:40 PM CS T 3,060 Units 3,060 Units 3,060 Units (60 Units/kg 51 kg), IV Push, ONCE, 1 dose, 09/10/19 at 1130, Routine heparin 25,000 Dose/Rate Verify 09/10/2019 6:15 PM 12 Units/kg/hr 6. 12 mL/hr units/250mL in NS HOSPICE MANAGER weight based dosing ACS protocol 12 Units/kg/hr 51 kg (6.12 mL/hr), IV Infusion, CONTINUOUS, Starting 09/10/19 at 1230, Until 09/10/19 at 2020 New Bag 09/10/2019 12:41 PM HOSPICE MANAGER 12 Units/kg/hr 6.12 mL/hr insulin aspart RAPID (NOVOLOG) Given 09/13/2019 1:30 PM HOSPICE MANAGER 3 U nits Abdomen-SC injection 3 Units 3 Units (rounded from 2.55 Units = 0.15 Units/kg/day 51 kg), Subcutaneous, TID MEALS, First dose on Wed09/11/19 at 1015, Until Discontinued, Routine Given 09/13/2019 9:37 AM HOSPICE MANAGER 3 Units Abdo men-SC Given 09/12/2019 5:02 PM HOSPICE MANAGER 3 Units Abdo men-SC insulin glargine (LANTUS U-100) Given 09/11/2019 11:12 AM HOSPICE MANAGER 8 Units Abdomen-SC injection 8 Units 8 Units (rounded from 7.65 Units = 0.15 Units/kg/day 51 kg), Subcutaneous, Q24H, 1 dose, First dose on Wed09/11/19 at 1015, MACKENZIE insulin glargine (LANTUS U-100) Given 09/12/2019 8:53 AM HOSPICE MANAGER 8 Units Abdomen-SC injection 8 Units 8 Units (rounded from 7.65 Units = 0.15 Units/kg/day 51 kg), Subcutaneous, Q24H, First dose on Wed09/12/19 at 1010, Until Discontinued, Routine insulin NPH (HUMULIN N) injection Given 09/13/2019 9:36 AM HOSPICE MANAGER 6 Units Abdomen-SC 6 Units 6 Units, Subcutaneous, QAM, First dose on Wed09/13/19 at 0900, Until Discontinued, Routine insulin regular human Dose/Rate Verify 09/10/2019 12:45 0.1 Units/k g/hr 5.13 mL/hr (HUMULIN R) 100 Units AM HOSPICE MANAGER in NaCl 0.9% (NS) 100 mL infusion 0.1 Units/kg/hr 51.3 kg (5.13 mL/hr), IV Infusion, TITRATE, Starting 09/09/19 at 1545, Until 09/10/19 at 1203 Dose/Rate Verify 09/09/2019 11:36 PM HOSPICE MANAGER 0.1 Units/kg/hr 5.13 mL/hr Dose/Rate Verify 09/09/2019 10:44 PM HOSPICE MANAGER 0.1 Units/kg/hr 5.13 mL/hr insulin regular human Rate Change 09/11/2019 10:03 AM 0.031 Units/ kg/hr 1.59 mL/hr (HUMULIN R) 100 Units HOSPICE MANAGER in NaCl 0.9% (NS) 100 mL infusion 0.1 Units/kg/hr 51 kg (5.1 mL/hr), IV Infusion, TITRATE, Starting 09/10/19 at 1200, Until 09/13/19 at 0944 Rate Change 09/11/2019 9:23 AM HOSPICE MANAGER 0.026 Units/kg/hr 1.33 mL/hr Rate Change 09/11/2019 8:06 AM HOSPICE MANAGER 0.024 Units/kg/hr 1.21 mL/hr insulin regular human (HUMULIN R) Given 09/09/2019 3:50 PM HOSPICE MANAGER 10 Units injection 10 Units 10 Units, Slow IV Push, ONCE, 1 dose, 09/09/19 at 1700, Routine insulin regular human (HUMULIN R) Given 09/09/2019 4:38 PM HOSPICE MANAGER 5.1 Units injection 5.1 Units 5.1 Units (rounded from 5.13 Units = 0.1 Units/kg 51.3 kg), Slow IV Push, ONCE, 1 dose, 09/09/19 at 1545, STAT ketamine (KETALAR) injection 100 mg Given 09/09/2019 4:12 PM HOSPICE MANAGER 100 mg 100 mg, Slow IV Push, ONCE, 1 dose, 09/09/19 at 2130, MACKENZIE lactated ringers IV infusion New Bag 09/09/2019 2:57 PM HOSPICE MANAGER 1,000 mL 999 mL/hr 1,000 mL at 999 mL/hr, 1,000 mL, IV Infusion, CONTINUOUS, Starting 09/09/19 at 1600, Until 09/10/19 at 1211, MACKENZIE lactated ringers IV infusion 500 New Bag 09/10/2019 8:[address] 500 mL 999 mL/hr mL at 999 mL/hr, 500 mL, Intravenous, ONCE, 1 dose, 09/10/19 at 2030, Routine magnesium sulfate in water 2 gram/50 mL (4 %) New Bag 3:53 PM HOSPICE MANAGER 2 g infusion 2 g 2 g, IV Piggyback, Administer over 20 Minutes, ONCE, 1 dose, 09/09/19 at 1700, Routine midazolam (VERSED) injection 5 mg Given 09/09/2019 1:40 PM HOSPICE MANAGER 5 mg 5 mg, IV Push, ONCE, 1 dose, 09/09/19 at 2045, STAT midazolam (VERSED) injection 5 mg Given 09/09/2019 7:39 PM HOSPICE MANAGER 5 mg 5 mg, IV Push, ONCE, 1 dose, 09/09/19 at 1945, STAT midazolam (VERSED) STD 50 mg in Rate Change 09/11/2019 9:26 AM CS T 1 mg/hr 1 mL/hr NaCl 0.9% (NS) 50 mL infusion RTU 1-10 mg/hr (1-10 mL/hr), IV Infusion, TITRATE, Starting 09/09/19 at 2303, Until 09/12/19 at 1430 New Bag 09/11/2019 1:53 AM HOSPICE MANAGER 2 mg/hr 2 mL/hr Rate Change 09/10/2019 8:09 PM HOSPICE MANAGER 3 mg/hr 3 mL/hr NaCl 0.9% (NS) bolus infusion New Bag 09/09/2019 3:31 PM HOSPICE MANAGER 1,500 mL 999 mL/hr 1,500 mL at 999 mL/hr, 1,500 mL, IV Infusion, ONCE, 1 dose, 09/09/19 at 1700, STAT NaCl 0.9% (NS) bolus infusion Given 09/09/2019 3:31 PM HOSPICE MANAGER 769.5 mL/hr 769.5 mL/hr at 769.5 mL/hr, 15 mL/kg/hr 51.3 kg (769.5 mL/hr), IV Infusion, ONCE, 1 dose, 09/09/19 at 1545, STAT NaCl 0.9% (NS) IV infusion 1,000 New Bag 09/09/2019 11:[address] 1,000 mL 250 mL/hr mL at 250 mL/hr, 1,000 mL, IV Infusion, CONTINUOUS, Starting 09/09/19 at 2330, Until 09/09/19 at 2343, MACKENZIE NaCl 0.9% (NS) IV infusion 1,000 New Bag 09/10/2019 10:[address] 1,000 mL 250 mL/hr mL at 250 mL/hr, Intravenous, CONTINUOUS, Starting Stanton 09/10/19 at 0330, Until 09/10/19 at 1206, MACKENZIE New Bag 09/10/2019 6:45 AM HOSPICE MANAGER 1,000 mL 250 mL/hr Dose/Rate Verify 09/10/2019 4:00 AM HOSPICE MANAGER 250 mL/hr NORepinephrine 4 mg in Rate Change 09/10/2019 7:20 AM 0.025 mcg/k g/min 4.81 mL/hr D5W 250 mL infusion RTU HOSPICE MANAGER 0.05-3 mcg/kg/min 51.3 kg (9.6188-577.125 mL/hr, rounded to 9.62-577.13 mL/hr), IV Infusion, TITRATE, MAP Goal > or = 65 mmHg, Starting 09/09/19 at 2049, Initiate titration at 0.05 mcg/kg/min. Increase by 0.01 mcg/kg/min every 30 seconds to 5 minutes as needed to reach and maintain goal blood pressure. Maximum dose = 3 mcg/kg/min. If goal not maintained at maximum allowed dose, contact prescriber., Dose/Rate Verify 09/10/2019 4:00 AM HOSPICE MANAGER 0.05 mcg/kg/min 9.62 mL/hr Rate Change 09/09/2019 11:21 PM HOSPICE MANAGER 0.05 mcg/kg/min 9.62 mL/hr ondansetron (ZOFRAN (PF)) injection 4 mg Given 09/09/2019 2:57 PM HOSPICE MANAGER 4 mg 4 mg, Slow IV Push, ONCE, 1 dose, 09/09/19 at 1545, MACKENZIE pantoprazole (PROTONIX) 80 mg in NaCl 0.9% Given 09/10/2019 7:2 7 AM HOSPICE MANAGER 80 mg (NS) 100 mL IV Piggyback 80 mg, IV Piggyback, ONCE, 1 dose, Stanton 09/10/19 at 0730, 100 mL propofol IV infusion Rate Change 09/09/2019 11:33 PM 5 mcg/kg/min 1.54 mL/hr 5-75 mcg/kg/min HOSPICE MANAGER 51.3 kg (1.539-23.085 mL/hr, rounded to 1.54-23.09 mL/hr), IV Infusion, TITRATE, Sedation-RASS score (0 to -1), Starting 09/09/19 at 1730, Initiate infusion at 5 mcg/kg/min and titrate by 5 mcg/kg/min every 30 seconds to 10 minutes to goal sedation score. Maximum dose = 75 mcg/kg/min. If goal not maintained at maximum allowed dose, contact prescriber. Tubing and unused portions of vials should be discarded after 12 hours., Dose/Rate Verify 09/09/2019 9:17 PM HOSPICE MANAGER 10 mcg/kg/min 3.08 mL/hr New Bag 09/09/2019 4:25 PM HOSPICE MANAGER 10 mcg/kg/min 3.08 mL/hr Saline Bubble Study Given 09/11/2019 11:41 AM HOSPICE MANAGER 6 mL 6 mL, Injection, SEE-INSTRUCTIONS, Starting Wed09/11/19 at 1145, Until Wed09/13/19 at 0945, Routine Saline Bubble Study Given 09/11/2019 11:40 AM HOSPICE MANAGER 6 mL 6 mL, Injection, SEE-INSTRUCTIONS, Starting Wed09/11/19 at 1145, Until Wed09/13/19 at 0945, Routine Sliding Scale Insulin - Aspart Given 09/11/2019 3:39 PM HOSPICE MANAGER 3 U nits Abdomen-SC (NOVOLOG) + Fsbg Testing Subcutaneous, Q4H, First dose on Wed09/11/19 at 1200, Until Discontinued, Routine Given 09/11/2019 12:21 PM HOSPICE MANAGER 1 Units Abdo men-SC Sliding Scale Insulin - Aspart Given 09/12/2019 8:53 AM HOSPICE MANAGER 1 U nits Abdomen-SC (NOVOLOG) + Fsbg Testing Subcutaneous, Q3H, First dose on Wed09/11/19 at 1700, Until Discontinued, Routine Given 09/12/2019 4:24 AM HOSPICE MANAGER 1 Units Abdo men-SC Given 09/11/2019 11:35 PM HOSPICE MANAGER 2 Units Abdo men-SC Sliding Scale Insulin-Regular + Given 09/10/2019 6:40 AM HOSPICE MANAGER 2 Units Abdomen-SC Fsbg Testing Subcutaneous, AC+HS, First dose on Wed09/10/19 at 0730, Until Discontinued, Routine vecuronium (NORCURON) injection 8 mg Given 09/09/2019 4:14 PM HOSPICE MANAGER 8 mg 8 mg, IV Push, ONCE, 1 dose, 09/09/19 at 2130, STAT documented in this encounter Insurance Payer Benefit Plan / Subscriber ID Effective Phone Address T ype Group Dates MEDICAID MEDICAID PENDING 2019-[address] [place] [address] documented as of this encounter Advance Directives Name Relationship Healthcare Agent Communication Relationship Nick Elizondo Father Primary healthcare agent
--- OUTSIDE RECORDS SUMMARY | 2019-12-03 05:16 | XMS REPORT | Summary of Care ---
:1965 Author Organization [facility] - Health Address [address] [place] [address] Care Team Providers Name Role Phone Jf Potter MD Unavailable Pcp, Does Not Have A Primary Care Provider Encounter Details Date Type Department Care Team Description 10/03/2019 Orders Only [facility] Doctor Unassigned, No [address] [facility] [place] [address] [address] [place] [id number] Allergies No Known Allergiesdocumented as of this encounter (statuses as of 11/02/2019) Medications Medication Sig Dispensed Refills Start Date [...] tabletIndications: mouth daily. Coronary artery disease involving [place] coronary artery of [place] heart without angina pectoris ATORVASTATIN 80 mg TAKE ONE TABLET BY 30 tablet 0 12/01/2018 Active tabletIndications: MOUTH AT BEDTIME Coronary artery disease involving [place] coronary artery of [place] heart without angina pectoris lisinopril 5 mg [...] as of this encounter (statuses as of 11/02/2019) Active Problems Problem Noted Date E44.0 Moderate protein calorie malnutrition 09/11/2019 Diabetic ketoacidosis 09/10/2019 Type 1 diabetes mellitus with complication 05/27/2017 CAD (coronary artery disease), [place] coronary artery 12/09/2016 documented as of this encounter (statuses as of 11/02/2019) Immunizations Name Administration Dates Next Due Influenza [...] Name Priority Date/Time Associated Diagnosis Comme nts AUTHORIZATION FOR RELEASE Routine 10/03/2019 12:01 AM OF PHI CDT documented in this encounter Results Not on filedocumented in this encounter Insurance Payer Benefit Plan / Subscriber ID Effective Phone Address T ype Group Dates MEDICAID MEDICAID SSI PENDING 2019-Pres [address] [place] [address] MEDICAID MEDICAID PENDING 2019-Pres [address] P[place] [address] documented as of this encounter Advance Directives Name Relationship Healthcare Agent Communication Relationship Nick Sorenson Primary healthcare agent
--- OUTSIDE RECORDS SUMMARY | 2019-12-03 05:16 | XMS REPORT | Summary of Care ---
:1965 Author Organization [address] [address] Care Team Providers Name Role Phone Jf Potter MD Unavailable Pcp, Does Not Have A Primary Care Provider Reason for Visit Reason Comments Referral/consult [facility] referral Encounter Details Date Type Department Care Team Description 09/21/2019 Patient Outreach [facility] Wen Alex RN Referral/consult [address] ([facility] refer ral) [place], [place] [address] Allergies No Known Allergiesdocumented as of this encounter (statuses as of 09/21/2019) Medications Medication Sig Dispensed Refills Start Date [...] tabletIndications: mouth daily. Coronary artery disease involving [place] coronary artery of [place] heart without angina pectoris ATORVASTATIN 80 mg TAKE ONE TABLET BY 30 tablet 0 12/01/2018 Active tabletIndications: MOUTH AT BEDTIME Coronary artery disease involving [place] coronary artery of [place] heart without angina pectoris lisinopril 5 mg [...] as of this encounter (statuses as of 09/21/2019) Active Problems Problem Noted Date E44.0 Moderate protein calorie malnutrition 09/11/2019 Diabetic ketoacidosis 09/10/2019 Type 1 diabetes mellitus with complication 05/27/2017 CAD (coronary artery disease), [place] coronary artery 12/09/2016 documented as of this encounter (statuses as of 09/21/2019) Immunizations Name Administration Dates Next Due Influenza [...] Signs Not on filedocumented in this encounter Progress Notes Wen Alex RN - 09/21/2019 2:33 PM CSTPt was previously referred to [facility] and did not participate. CM will attempt to contact the patient and discuss enrollment. Pt's voicemail is not set up; unable to contact patient. GALO Shelton, RN, [facility] Outpatient Extermination SupervisorHousekeeping Room AttendantAtrium Health Harrisburg O: [phone] M: [phone] documented in this encounter Plan of Treatment [...] [address] [place] [address] MEDICAID MEDICAID PENDING 2019-Pres [address] Pending [place] [address] documented as of this encounter Advance Directives Name Relationship Healthcare Agent Communication Relationship Nick Sorenson Primary healthcare agent
--- OUTSIDE RECORDS SUMMARY | 2019-12-03 05:16 | XMS REPORT | Summary of Care ---
:1965 Author Organization [address] [address] Care Team Providers Name Role Phone Jf Potter MD Unavailable Pcp, Does Not Have A Primary Care Provider Reason for Visit Reason Comments Referral/consult 2nd attempt; [facility] referral Encounter Details Date Type Department Care Team Description 11/05/2019 Patient Outreach [facility] Wen Alex RN Referral/consult [address] (2nd attem pt; P [facility] referral) [place], [place] [address] Allergies No Known Allergiesdocumented as of this encounter (statuses as of 11/05/2019) Medications Medication Sig Dispensed Refills Start Date [...] tabletIndications: mouth daily. Coronary artery disease involving [place] coronary artery of [place] heart without angina pectoris ATORVASTATIN 80 mg TAKE ONE TABLET BY 30 tablet 0 12/01/2018 Active tabletIndications: MOUTH AT BEDTIME Coronary artery disease involving [place] coronary artery of [place] heart without angina pectoris lisinopril 5 mg [...] as of this encounter (statuses as of 11/05/2019) Active Problems Problem Noted Date E44.0 Moderate protein calorie malnutrition 09/11/2019 Diabetic ketoacidosis 09/10/2019 Type 1 diabetes mellitus with complication 05/27/2017 CAD (coronary artery disease), [place] coronary artery 12/09/2016 documented as of this encounter (statuses as of 11/05/2019) Immunizations Name Administration Dates Next Due Influenza [...] encounter Progress Notes Wen Alex RN - 11/05/2019 3:50 PM CDT2nd attempt: Attempting to contact patient re: CHP; no answer nor an answering system. Referral will be closed. GALO Shelton, RN, [facility] Outpatient Automatic DeveloperHealthcare [facility]antAt[facility] O: [phone] M: [phone] documented in this encounter Plan of Treatment [...] 2019-Pres [address] [employer] [place] [address] MEDICAID MEDICAID PENDING 2019-Pres [address] [employer] Pending [place] [address] documented as of this encounter Advance Directives Name Relationship Healthcare Agent Communication Relationship Nick Sorenson Primary healthcare agent
[2019-12-03 05:38] LABS: Arterial Blood Carboxyhemoglob 1.5 % (0-1.5); Blood Gas Oxyhemoglobin 95.3 % (94-97); Blood O2 Saturation 98.2 % (92-98.5)
[2019-12-03 06:00] LABS: Protime INR 0.91
[2019-12-03 06:10] LABS: Absolute Lymphocytes (CBC) 1.8 K/uL (0.7-4.9); Basophils % 0.7 % (0-1.3); Hematocrit 43.5 % (39.6-49.0); Lymphocytes % 10.4 % (15.3-44.8); MPV 8.6 fL (7.6-11.3); RBC Red Blood Cell Count 4.65 M/uL (4.33-5.43)
[2019-12-03] MEDS ORDERED: NA CHLORIDE 0.9% 2,000 ML ONE ×2 (06:12→07:30)
[2019-12-03 06:16] LABS: ALT/SGPT 30 U/L (12-78); AST/SGOT 25 U/L (15-37); Albumin 4.4 g/dL (3.4-5.0); Alkaline Phosphatase 116 U/L (45-117); BUN Blood Urea Nitrogen 25 mg/dL (7-18); Bilirubin Direct 0.2 mg/dL (0-0.2); Bilirubin Total 0.7 mg/dL (0.2-1.0); Magnesium 2.4 mg/dL (1.8-2.4); NT PRO-BNP 149 pg/mL (<125); Potassium 5.2 mmol/L (3.5-5.1); Protein, Total 8.8 g/dL (6.4-8.2); Sodium Level 129 mmol/L (136-145); Troponin (Emerg Dept Use Only) < 0.02 ng/mL (0.0-0.045)
[2019-12-03 06:17] LABS: Bicarbonate 9 mmol/L (21-32); Glucose Level 621 mg/dL (74-106)
--- NOTE | 2019-12-03 06:38 | EDPHYS ---
Physician Documentation [facility] Name: Nick Elizondo II Age: 54 yrs Sex: Male : 1965 Arrival Date: 12/03/2019 Time: 05:11 Bed 3 Private MD: ED Physician Angel King HPI: 12/02 06:42 This 54 yrs old Male presents to ER via Wheelchair with complaints of mh7 Shortness Of Breath. 06:43 The patient has shortness of breath at rest. Onset: The symptoms/episode began/occurred mh7 4 hour(s) ago. Duration: The symptoms are continuous, and are unchanged since they started. The patient's shortness of breath is aggravated by nothing, is alleviated by nothing. Associated signs and symptoms: Pertinent positives: nausea, vomiting, Pertinent negatives: chest pain, non-productive cough, productive cough, diaphoresis, dizziness, fever, hemoptysis, loss of consciousness, numbness in extremities, visual changes. Severity of symptoms: At their worst the symptoms were moderate just prior to arrival, in the emergency department the symptoms are unchanged. The patient has experienced similar episodes in the past, several times. Historical: - Allergies: 05:20 No Known Allergies; jb4 - Home Meds: 05:20 Novolin N Sub-Q [Active]; Novolog Sub-Q [Active]; jb4 - PMHx: 05:20 Diabetes - IDDM; jb4 - PSHx: 05:20 None; jb4 - Immunization history:: Adult Immunizations up to date. - Social history:: Smoking status: Patient reports the use of cigarette tobacco products, unknown amount Patient uses alcohol, on a daily basis. Patient/guardian denies using street drugs. ROS: 06:43 Constitutional: Negative for fever, chills, and weight loss, Eyes: Negative for injury, mh7 pain, redness, and discharge, ENT: Negative for injury, pain, and discharge, Neck: Negative for injury, pain, and swelling, Cardiovascular: Negative for chest pain, palpitations, and edema. 06:43 Back: Negative for injury and pain, : Negative for injury, bleeding, discharge, and swelling, MS/Extremity: Negative for injury and deformity. 06:43 Neuro: Negative for headache, weakness, numbness, tingling, and seizure, Psych: Negative for depression, anxiety, suicide ideation, homicidal ideation, and hallucinations, Allergy/Immunology: Negative for hives, rash, and allergies, Endocrine: Negative for neck swelling, polydipsia, polyuria, polyphagia, and marked weight changes, Hematologic/Lymphatic: Negative for swollen nodes, abnormal bleeding, and unusual bruising. 06:43 Respiratory: Positive for shortness of breath, at rest. Negative for cough, dyspnea on exertion, hemoptysis, orthopnea, pleurisy, sputum production, wheezing. 06:43 Abdomen/GI: Positive for nausea, vomiting, Negative for abdominal pain, diarrhea, constipation, abdominal cramps, abdominal distension, anorexia, dysphagia, hematemesis, black/tarry stool, rectal pain, rectal bleeding, bowel incontinence, flatulence. 06:43 Skin: Positive for discoloration, discoloration with melton skin tone primarily of upper chest and face.. Exam: 06:43 Head/Face: Normocephalic, atraumatic. Eyes: Pupils equal round and reactive to light, mh7 extra-ocular motions intact. Lids and lashes normal. Conjunctiva and sclera are non-icteric and not injected. Cornea within normal limits. Periorbital areas with no swelling, redness, or edema. ENT: Nares patent. No nasal discharge, no septal abnormalities noted. Tympanic membranes are normal and external auditory canals are clear. Oropharynx with no redness, swelling, or masses, exudates, or evidence of obstruction, uvula midline. Mucous membranes moist. Neck: Trachea midline, no thyromegaly or masses palpated, and no cervical lymphadenopathy. Supple, full range of motion without nuchal rigidity, or vertebral point tenderness. No Meningismus. Chest/axilla: Normal chest wall appearance and motion. Nontender with no deformity. No lesions are appreciated. 06:43 Abdomen/GI: Soft, non-tender, with normal bowel sounds. No distension or tympany. No guarding or rebound. No evidence of tenderness throughout. Back: No spinal tenderness. No costovertebral tenderness. Full range of motion. 06:43 MS/ Extremity: Pulses equal, no cyanosis. Neurovascular intact. Full, normal range of motion. Neuro: Awake and alert, GCS 15, oriented to person, place, time, and situation. Cranial nerves II-XII grossly intact. Motor strength 5/5 in all extremities. Sensory grossly intact. Cerebellar exam normal. Normal gait. 06:43 Constitutional: The patient appears alert, awake, non-diaphoretic, anxious, Appearance of melton/bluish discoloration of face and upper chest which is his baseline according to patient and his father. 06:43 Head/face: Exam is negative for 06:43 Cardiovascular: Rate: tachycardic, Rhythm: regular, Pulses: no pulse deficits are appreciated, Heart sounds: normal, normal S1and S2, Edema: is not appreciated, JVD: is not appreciated. 06:43 ECG was reviewed by the Attending Physician. 06:43 Respiratory: mild respiratory distress is noted, Respirations: normal, symetrical, no use of accessory muscles, no appreciated paradoxical movements, no prolonged exhalations, no pursed lip breathing, no retractions, no shallow respirations, no splinting, Breath sounds: rhonchi, that are mild, are scattered, Respiratory rate: tachypneic 06:43 Skin: melton/bluish discoloration. Vital Signs: 05:20 BP 162 / 82; Pulse 111; Resp 35; Temp 94.8(A); Pulse Ox 100% on R/A; Weight 52.16 kg jb4 (R); Height 5 ft. 5 in. (165.10 cm); Pain 0/10; 07:00 BP 166 / 189; Pulse 113; Resp 22 S; Temp 97.7(TE); Pulse Ox 100% on R/A; jl7 07:45 BP 147 / 71; Pulse 112; Resp 21; Pulse Ox 100% ; jl7 08:33 BP 157 / 70; Pulse 117; Resp 22; Pulse Ox 100% ; jl7 05:20 Body Mass Index 19.14 (52.16 kg, 165.10 cm) jb4 Procedures: 07:34 Peripheral line: by aseptic technique a peripheral line was placed in the left external pm1 jugular vein, 20 gauge. MDM: 05:50 Patient medically screened. [facility] 06:43 Differential diagnosis: Anemia asthma, Bronchitis Chronic Obstructive Pulmonary Disease 7 Myocardial Infarction pneumonia, Pneumothorax pulmonary edema, Sepsis Unstable Angina DKA. Data reviewed: vital signs, nurses notes, lab test result(s), CBC, white blood cell count, hemoglobin, hematocrit, platelets, urinalysis. Data interpreted: nuclear monitoring technician: rate is 111 beats/min, rhythm is regular, Pulse oximetry: on room air is 100 %. Interpretation: normal. Response to treatment: the patient's symptoms have mildly improved after treatment. ED course: Feeling better, still with tachycardia, no focal neurological deficits. Discussed all test results and findings with the patient and need for admission for further care and evaluation. Discussed with and admitted to Dr. Duncan for ICU care.. 08:21 Antibiotic administration: rocephin. [facility] 08:25 ED course: dr kiser at [facility] accepting, imu bed. [facility] 12/02 05:28 Order name: Basic Metabolic Panel; Complete Time: 06:22 12/02 05:28 Order name: CBC with Diff; Complete Time: 06:22 [facility] 12/02 05:28 Order name: LFT's; Complete Time: 06:22 12/02 05:28 Order name: Magnesium; Complete Time: 06:22 12/02 05:28 Order name: NT PRO-BNP; Complete Time: 06:22 12/02 05:28 Order name: PT-INR; Complete Time: 06:22 [facility] 12/02 05:28 Order name: Troponin (emerg Dept Use Only); Complete Time: 06:22 [facility] 12/02 05:28 Order name: XRAY Chest (1 view) [facility] 12/02 05:29 Order name: ABG; Complete Time: 06:22 [facility] 12/02 05:39 Order name: Blood Culture Adult (2) [facility] 12/02 05:39 Order name: Lactate; Complete Time: 06:22 [facility] 12/02 08:54 Order name: Lactate Sepsis 2 HR Follow-up [facility] 12/02 05:28 Order name: EKG; Complete Time: 05:29 12/02 05:28 Order name: Cardiac monitoring; Complete Time: 05:29 [facility] 12/02 05:28 Order name: EKG - Nurse/Tech; Complete Time: 05:38 12/02 05:28 Order name: IV Saline Lock; Complete Time: 05:38 12/02 05:28 Order name: Labs collected and sent; Complete Time: 05:29 12/02 05:28 Order name: O2 Per Protocol; Complete Time: 05:29 12/02 05:28 Order name: O2 Sat Monitoring; Complete Time: 05:29 mh7 EC:43 Rate is 109 beats/min. Rhythm is regular. QRS [place] is Normal. OR interval is normal. 7 QRS interval is normal. QT interval is normal. No Q waves. T waves are Normal. No ST changes noted. Administered Medications: 06:12 Drug: NS 0.9% 1000 ml Route: IV; Rate: 1000 ml; Site: right hand; [facility] 08:15 Follow up: Response: No adverse reaction; IV Status: Completed infusion; IV Intake: 7 1000ml 07:44 Drug: NS 0.9% 1000 ml Route: IV; Rate: 125 ml/hr; Site: right hand; jl7 09:59 Follow up: IV Status: Infusion continued upon transfer jl7 07:44 Drug: NS 0.9% 1000 ml Route: IV; Rate: 1000 ml; Site: left jugular; 7 09:15 Follow up: Response: No adverse reaction; IV Intake: 1000ml jl7 09:59 Follow up: IV Status: Infusion continued upon transfer jl7 07:45 Drug: Zofran (Ondansetron) 4 mg Route: IVP; Site: right hand; jl7 09:07 Follow up: Response: No adverse reaction; Nausea is decreased jl7 07:45 Drug: Insulin Regular Human 10 units {Co-Signature: em (Jonathan Jones RN).} Route: IVP; [facility] Site: left jugular; 09:59 Follow up: Response: Blood sugar is lowered jl 08:27 Drug: Insulin Drip - (Insulin Regular Human 100 units, NS 0.9% 100 ml) {Co-Signature: [facility] em (Jonathan Jones RN).} {Note: started rate at 5 units/hr per Dr. King.} Route: IV; Rate: calculated rate; Site: right hand; 09:58 Follow up: Response: No adverse reaction; Rate change 2.5 units/hr; IV Status: Infusion [facility] continued upon transfer 08:35 Drug: Rocephin 1 grams Route: IV; Rate: per protocol; Site: left jugular; 7 08:38 Follow up: Response: No adverse reaction; IV Status: Completed infusion [facility] 09:57 Drug: Zofran (Ondansetron) 4 mg Route: IVP; Site: right hand; 7 10:00 Follow up: Response: No adverse reaction jl7 Disposition: 06:43 Critical Care:. mh7 07:06 Co-signature as Attending Physician, Krishna Cannon MD. 7 08:24 Co-signature as Attending Physician, Angel King MD I agree with the assessment and [facility] plan of care. Disposition: 12/03/19 08:35 Transfer ordered to [facility]. Diagnosis are Type 1 diabetes mellitus, Type 1 diabetes mellitus with ketoacidosis without coma, Elevated white blood cell count. - Reason for transfer: Higher level of care. - Accepting physician is to dr kiser [facility]. - Condition is Fair. - Problem is new. - Symptoms have improved. Critical care time excluding procedures: 06:43 Critical care time: Bedside Care: 20 minutes, Consultation: 5 minutes, Family 7 Intervention: 5 minutes. Total time: 30 minutes Signatures: Dispatcher [employer] EDWV Adelita Miranda RN RN mw Anderson, Corey, MD MD cha Pena, Laura, RN RN lp1 Marlno Ying, DIALYSIS TECH DIALYSIS TECH pm1 Gama Goodwin RN RN jb4 Dominique Monroe RN RN jl7 Krishna Cannon MD MD mh7 Edgar Munoz RN em Corrections: (The following items were deleted from the chart) 05:31 05:29 Arterial Blood Gas+RC.LAB.BRZ ordered. [facility] EDWV 06:39 06:37 Hospitalization Ordered by Josseline Duncan MD for Inpatient Admission. Preliminary mw diagnosis is Type 1 diabetes mellitus with ketoacidosis. Bed requested for Intensive Care Unit. Status is Inpatient Admission. Condition is Serious. Problem is an acute exacerbation. Symptoms have improved. [facility] 08:16 06:39 12/03/2019 06:37 Hospitalization Ordered by Josseline Duncan MD for Inpatient [facility] Admission. Preliminary diagnosis is Type 1 diabetes mellitus with ketoacidosis. Bed requested for [facility] ER HOLD. Status is Inpatient Admission. Condition is Serious. Problem is an acute exacerbation. Symptoms have improved. mw 10:08 08:35 12/03/2019 08:35 Transfer ordered to [facility]. jl7 Diagnosis is Type 1 diabetes mellitus; Type 1 diabetes mellitus with ketoacidosis without coma; Elevated white blood cell count. Reason for transfer: Higher level of care. Accepting physician is to dr kiser [facility]. Condition is Fair. Problem is new. Symptoms have improved. virgil
--- NOTE | 2019-12-03 06:38 | ER ---
Nurse's Notes [facility] Name: Nick Elizondo II Age: 54 yrs Sex: Male : 1965 Arrival Date: 12/03/2019 Time: 05:11 Bed 3 Private MD: Diagnosis: Type 1 diabetes mellitus;Type 1 diabetes mellitus with ketoacidosis without coma;Elevated white blood cell count Presentation: 12/02 05:20 Chief complaint: Patient states: I am short of breathe and it is hard to talk. It jb4 started about 4 hours ago. 05:20 Coronavirus screen: Patient denies a cough. Patient reports shortness of breath or jb4 difficulty breathing. Patient denies measured and/or subjective temperature greater than 100.4F prior to today's visit. Patient denies travel on a cruise ship or to a country the [facility] currently lists as an affected area. Patient denies contact with known and/or suspected case of COVID-19. Ebola Screen: No symptoms or risks identified at this time. Initial Sepsis Screen: Does the patient meet any 2 criteria? RR > 20 per min. HR > 90 bpm. Yes Does the patient have a suspected source of infection? No. Patient's initial sepsis screen is negative. If YES to both, name of provider notified: Krishna Cannon MD Risk Assessment: Do you want to hurt yourself or someone else? Patient reports no desire to harm self or others. Onset of symptoms was December 03, 2019. Transition of care: patient was not received from another setting of care. 05:20 Method Of Arrival: Wheelchair jb4 05:20 Acuity: [facility] 1 lp1 Historical: - Allergies: 05:20 No Known Allergies; jb4 - Home Meds: 05:20 Novolin N Sub-Q [Active]; Novolog Sub-Q [Active]; jb4 - PMHx: 05:20 Diabetes - IDDM; jb4 - PSHx: 05:20 None; jb4 - Immunization history:: Adult Immunizations up to date. - Social history:: Smoking status: Patient reports the use of cigarette tobacco products, unknown amount Patient uses alcohol, on a daily basis. Patient/guardian denies using street drugs. Screenin:20 Abuse screen: Denies threats or abuse. Nutritional screening: No deficits noted. jb4 Tuberculosis screening: No symptoms or risk factors identified. Fall Risk IV access (20 points). Gait- Impaired (20 pts.). Total Rosenthal Fall Scale indicates Low Risk Score (25-44 pts). Fall prevention measures have been instituted. Side Rails Up X 2 Placed close to Nursing Station Frequent Obs/Assesments occuring As available Patient and Family Educated on Fall Prevention Program and strategies. Assessment: 05:20 General: Appears in no apparent distress. distressed, Behavior is cooperative, anxious. jb4 Pain: Denies pain. Neuro: Level of Consciousness is awake, alert, obeys commands, Oriented to person, place, time, situation. Cardiovascular: Patient's skin is warm and dry. Rhythm is sinus tachycardia. Respiratory: Airway is patent Respiratory effort is labored, shallow, Respiratory pattern is symmetrical, hyperventilation Breath sounds are clear bilaterally. GI: Abdomen is flat, Reports nausea, vomiting. : No signs and/or symptoms were reported regarding the genitourinary system. EENT: No signs and/or symptoms were reported regarding the EENT system. Derm: Skin is dry, Skin is pale, cyanotic Skin temperature is cool. Musculoskeletal: Circulation, motion, and sensation intact. Range of motion: intact in all extremities. 06:07 Reassessment: Pts heart rate spiking to 200. Pt placed on [employer] for jb4 monitoring Via Defib Combo pads. Provider notified. 06:10 Reassessment: Verbal order from Provider for 2L of NS bolus. lp1 07:00 General: Appears in no apparent distress. uncomfortable, Behavior is cooperative, jl7 anxious. Pain: Denies pain. Neuro: Level of Consciousness is awake, alert, obeys commands, Oriented to person, place, time, situation. Cardiovascular: Patient's skin is warm and dry. Rhythm is sinus tachycardia. Respiratory: Airway is patent Respiratory effort is even, unlabored, shallow, Respiratory pattern is symmetrical, tachypnea Breath sounds are clear bilaterally. GI: Abdomen is flat, non-distended, Reports nausea. : No signs and/or symptoms were reported regarding the genitourinary system. EENT: No signs and/or symptoms were reported regarding the EENT system. Derm: Skin is dry, Skin is pt's skin appears blue in color, O2 100% on RA Skin temperature is cool. 08:00 Reassessment: Patient appears in no apparent distress at this time. Patient and/or jl7 family updated on plan of care and expected duration. Pain level reassessed. Patient is alert, oriented x 3, equal unlabored respirations, skin warm/dry/pink. 09:00 Reassessment: Patient appears in no apparent distress at this time. Patient and/or jl7 family updated on plan of care and expected duration. Pain level reassessed. Patient is alert, oriented x 3, equal unlabored respirations, skin warm/dry/pink. 10:06 Reassessment: EMS at bedside to transport pt. 7 Vital Signs: 05:20 BP 162 / 82; Pulse 111; Resp 35; Temp 94.8(A); Pulse Ox 100% on R/A; Weight 52.16 kg jb4 (R); Height 5 ft. 5 in. (165.10 cm); Pain 0/10; 07:00 BP 166 / 189; Pulse 113; Resp 22 S; Temp 97.7(TE); Pulse Ox 100% on R/A; jl7 07:45 BP 147 / 71; Pulse 112; Resp 21; Pulse Ox 100% ; jl7 08:33 BP 157 / 70; Pulse 117; Resp 22; Pulse Ox 100% ; jl7 05:20 Body Mass Index 19.14 (52.16 kg, 165.10 cm) jb4 ED Course: 05:11 Patient arrived in ED. cl3 05:20 Arm band placed on right wrist. jb4 05:28 Krishna Cannon MD is Attending Physician. mh7 05:38 Gama Goodwin, ELSA is Primary Nurse. jb4 05:40 Patient has correct armband on for positive identification. Placed in gown. Bed in low jb4 position. Call light in reach. Side rails up X 1. manager monitoring on. Pulse ox on. NIBP on. Pt is being monitored by [employer] Via Defib combo pads. 05:45 Missed attempt(s): 22 gauge in right antecubital area. lp1 05:48 Inserted saline lock: 24 gauge in right hand, using aseptic technique. lp1 05:55 Triage completed. jb4 05:57 XRAY Chest (1 view) In Process Unspecified. EDMS 06:35 Josseline Duncan MD is Hospitalizing Provider. mh7 08:15 Attending Physician role handed off by Krishna Cannon MD virgil 08:15 Angel King MD is Attending Physician. virgil 08:[address] King with Steffen Garnett from the [facility]. 08:[address] Milian the trust manager onion farmer for [facility] with Dr. King for eb patient transfer consultation. 08:29 Inserted saline lock: 20 gauge in left EJ, using aseptic technique. ,using aseptic jl7 technique. inserted by Marlon fregoso NP. 08:33 No provider procedures requiring assistance completed. jl7 08:40 administrative approval given by Steffen Garnett/ patient has been accepted to [facility] bed 7402/ Dr. Nahun Milian has accepted the patient in transfer/ report to be called to [phone]. 09:16 Patient transferred, IV remains in place. intact, No redness/swelling at site. jl7 Administered Medications: 06:12 Drug: NS 0.9% 1000 ml Route: IV; Rate: 1000 ml; Site: right hand; 1 08:15 Follow up: Response: No adverse reaction; IV Status: Completed infusion; IV Intake: jl7 1000ml 07:44 Drug: NS 0.9% 1000 ml Route: IV; Rate: 125 ml/hr; Site: right hand; jl7 09:59 Follow up: IV Status: Infusion continued upon transfer jl7 07:44 Drug: NS 0.9% 1000 ml Route: IV; Rate: 1000 ml; Site: left jugular; jl7 09:15 Follow up: Response: No adverse reaction; IV Intake: 1000ml jl7 09:59 Follow up: IV Status: Infusion continued upon transfer jl7 07:45 Drug: Zofran (Ondansetron) 4 mg Route: IVP; Site: right hand; jl7 09:07 Follow up: Response: No adverse reaction; Nausea is decreased jl7 07:45 Drug: Insulin Regular Human 10 units {Co-Signature: mitra (Jonathan Jones RN).} Route: IVP; jl7 Site: left jugular; 09:59 Follow up: Response: Blood sugar is lowered jl7 08:27 Drug: Insulin Drip - (Insulin Regular Human 100 units, NS 0.9% 100 ml) {Co-Signature: jl em (Jonathan Jones RN).} {Note: started rate at 5 units/hr per Dr. King.} Route: IV; Rate: calculated rate; Site: right hand; 09:58 Follow up: Response: No adverse reaction; Rate change 2.5 units/hr; IV Status: Infusion jl7 continued upon transfer 08:35 Drug: Rocephin 1 grams Route: IV; Rate: per protocol; Site: left jugular; 7 08:38 Follow up: Response: No adverse reaction; IV Status: Completed infusion 7 09:57 Drug: Zofran (Ondansetron) 4 mg Route: IVP; Site: right hand; jl7 10:00 Follow up: Response: No adverse reaction jl7 Intake: 08:15 IV: 1000ml; Total: 1000ml. jl7 09:15 IV: 1000ml; Total: 2000ml. jl7 Outcome: 06:37 Decision to Hospitalize by Provider. [facility] 08:35 ER care complete, transfer ordered by . virgil 10:06 Transferred by ground EMS to [facility], Transfer form completed. jl7 X-rays sent w/ patient. 10:06 Condition: stable 10:06 Discharge instructions given to patient, Instructed on the need for transfer, Demonstrated understanding of instructions. 10:08 Patient left the ED. jl7 Signatures: Dispatcher [employer] Angel Head MD MD cha Pena, Laura, RN RN lp1 Gama Goodwin RN RN jb4 Dominique Monroe RN RN jl7 Polina Woodward Charde 3 Krishna Cannon MD MD 7 Jonathan Jones RN em Corrections: (The following items were deleted from the chart) 05:55 05:50 Chief complaint: jb4 jb4 06:11 05:20 BP 162 / 82; Pulse 111bpm; Resp 35bpm; Pulse Ox 100% RA; Temp 98.5F Axillary; jb4 52.16 kg Reported; Height 5 ft. 5 in.; BMI: 19.1; Pain 0/10; jb4 06:11 05:20 Derm: Skin is dry, Skin is pale, cyanotic Skin temperature is warm jb4 jb4 06:36 05:20 Acuity: [facility] 2 jb4 lp1
[2019-12-03] MEDS ORDERED: D50W 25 GM/50 ML SYRINGE/VIAL IV PRN (07:15)
[2019-12-03] MEDS ORDERED: GLUCAGON 1 MG/VIAL IM PRN (07:15)
[2019-12-03] MEDS ORDERED: INSULIN -REGULAR HUMAN 50 UNIT/0.5 ML ML ONE (07:30)
[2019-12-03] MEDS ORDERED: ONDANSETRON 4 MG/2 ML VIAL ONE ×2 (07:30→09:58)
[2019-12-03] MEDS ORDERED: INSULIN -REGULAR HUMAN 100 UNIT in NA CHLORIDE 0.9% 100 ML IV SCH (08:00)
--- NOTE | 2019-12-03 08:38 | EKG ---
Test Date: 2019-12-03 Test Time: 05:29:20 [employer]: RADHA MEASUREMENT RESULTS: Intervals: Rate: 109 GA: 118 QRSD: 92 QT: 334 QTc: 449 [place]: P: 82 GA: 118 QRS: 77 T: 72 INTERPRETIVE STATEMENTS: Sinus tachycardia Otherwise normal ECG Compared to ECG 08/30/2017 07:41:10 Sinus rhythm no longer present Electronically Signed On 12-03-19 08:38:13 CDT by Jorge Jenkins
[2019-12-03] MEDS ORDERED: CEFTRIAXONE/SWI 1gm 1 GM/10 ML SYR ONE (09:07)
[2019-12-03 10:17] VITALS: O2SAT 100
[2019-12-03 10:18] VITALS: TEMP 97.7
[2019-12-03 10:21] VITALS: BP 157/70
--- NOTE | 2019-12-03 11:08 | RAD REPORT ---
EXAM DESCRIPTION: RAD - Chest Single View - 12/03/2019 5:57 am CLINICAL HISTORY: SOB Chest pain. COMPARISON: Chest Single View dated 10/30/2015; Chest Single View dated 10/28/2015; CHEST SINGLE VIEW da todd 05/30/2014; CHEST SINGLE VIEW dated 05/29/2014 FINDINGS: Portable technique limits examination quality. The lungs are mildly emphysematous but grossly clear. The heart is normal in size. No displaced fract ures. IMPRESSION: No acute intrathoracic process suspected. Mild COPD.
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
== END 2019-12-03 10:08 | disposition short-term general hospital (02) ==
LOC: ER 05:07
PROC: 05HQ33Z Insertion of Infusion Device into Left External Jugular Vein, Percutaneous Approach (ICD-10-PCS; principal; 2019-12-03)
DX: E10.10 Type 1 diabetes mellitus with ketoacidosis without coma (principal); D72.829 Elevated white blood cell count, unspecified; F17.210 Nicotine dependence, cigarettes, uncomplicated; Z79.4 Long term (current) use of insulin
CPT/HCPCS: 36415; 71045; 80048; 80076; 82805; 82947; 83605; 83735; 83880; 84484; 85025; 85610; 87040; 93005; 96361; 96365; 96375; 99291; 99292; J0696; J2405; J7030

== ENCOUNTER 2022-03-02 22:01 | Emergency (ER) | payer SELFPAY ==
--- OUTSIDE RECORDS SUMMARY | 2022-03-02 22:12 | XMS REPORT | Continuity of Care Document ---
:1965 Author Organization [facility] t Address [address] [place] [address] Care Team Providers Name Role Phone PCP, PATIENT DOES NOT HAVE A Primary Care Physician Unavaila NASRIN Madison Attending Clinician Unavailable Doctor Unassigned, [place] Attending Clinician Unavailable Isai HUNTER, Wen Mendez Attending Clinician Stephany Boateng Attending Clinician Travis Morel MD Attending Clinician Trevor Lockhart MD Attending Clinician Aislinn Hathaway MD Attending Clinician AISLINN HATHAWAY Attending Clinician Unavailable DU BESS Attending Clinician Unavailable Du Bess MD Attending Clinician Salena Masters Attending Clinician Tariq CHOWDHURY, [facility] K.H[facility] Attending Clinician NASRIN SINGH Admitting Clinician Unavailable Trevor Lockhart MD Admitting Clinician TREVOR LOCKHART JR Admitting Clinician Unavailable DU BESS Admitting Clinician Unavailable Payers Payer Name Policy Type Policy Number Effective Date Expiration Date S ource Problems Condition Condition Condition Status Onset Resolution Last Treating Co mments Source Name Details Category Date Date Treatment Clinician Date E44.0 E44.0 Disease Active 2020-0 Univers Moderate Moderate 2-17 ity of protein protein 00:00: [place] calorie calorie 00 Medical malnutriti malnutriti Br anch on on Diabetic Diabetic Disease Active Unive rs ketoacidos ketoacidos 2-16 it y of is is 00:00: [place] 00 Medical Branch Type 1 Type 1 Disease Active 2016-07 Univers diabetes diabetes 1-02 ity of mellitus mellitus 00:00: [place] with with 00 Medical complicati complicati Br anch on on CAD CAD Disease Active Univers (coronary (coronary 5-17 ity of artery artery 00:00: [place] disease), disease), Medi clementine cabazon cabazon Branch coronary coronary artery artery CAD CAD Disease Active Univers (coronary (coronary 5-17 ity of artery artery 00:00: [place] disease), disease), 00 Medi clementine cabazon cabazon Branch coronary coronary artery artery Allergies, Adverse Reactions, Alerts Allergy Allergy Status Severity Reaction(s) Onset Inactive Treating Comm ents Source Name Type Date Date Clinician NO KNOWN Drug Active Univers ALLERGIE Class ity of [facility] NO KNOWN Allergy Active [facility] Social History Social Habit Start Date Stop Date Quantity Comments Source History of tobacco Cigarette Smoker University of use [facility] Cigarettes smoked 2019-08-17 2019-08-17 Univers ity of current (pack per 00:00:00 00:00:00 ) - Reported Branch Tobacco use and 2019-08-17 2019-08-17 Current user Univers ity of exposure 00:00:00 00:00:00 [facility] Cigarette 2019-08-17 2019-08-17 University of pack-years 00:00:00 00:00:00 [facility] Alcohol intake 2019-08-17 2019-08-17 Current drinker Unive rsity of 00:00:00 00:00:00 of alcohol [facility] (finding) [place] Alcohol Comment 2016-11-19 2016-11-19 once a month Univers ity of 00:00:00 00:00:00 [facility] Sex [birth year] Universit y of 00:00:00 00:00:00 [facility] Smoking Status Start Date Stop Date Source Current every day smoker 2019-08-17 00:00:00 Uni versity of [facility] Medications Ordered Filled Start Stop Current Ordering Indication Dosage Frequency Signature Comments Components Source Medication Medication Date Date Medication? Clinician (SIG) Name Name insulin NPH 2020-0 Yes 10U 10 Units, U nivers (HUMULIN N) 2-20 Subcutaneo it y of injection 15:00: us, QAM, [place] s 10 Units 00 First dose Medic al on [place] Branch 09/14/19 at 0900, Until Discontinu ed, Routine flu vaccine 2020-0 2020- No .5mL 0.5 mL, Un dg 6 months -14 09-20 Intramuscu ity of and up 00:30: 12:29 [place], ONCE, [place] (FLUZONE 00 :00 1 dose, Medical QUAD Wed Branch [id number] 09/13/19 at (PF)) 1830, syringe 0.5 Routine mL aspirin 81 2020-0 Yes 81mg Take 81 mg U nivers mg chewable 2-20 by mouth ity of tablet 00:22: daily. [place] [address] Medical Branch lisinopril 2020-0 Yes 5mg Take 5 mg Un dg 5 mg tablet 2-20 by mouth 2 it y of 00:22: (two) [place] [address] times Medical daily. Branch aspirin 81 2020-0 Yes 81mg Take 81 mg U nivers mg chewable 2-20 by mouth ity of tablet 00:22: daily. [address] Branch lisinopril 2020-0 Yes 5mg Take 5 mg Un dg 5 mg tablet 2-20 by mouth 2 it y of 00:22: (two) [place] [address] times Medical daily. Branch aspirin 81 2020-0 Yes 81mg Take 81 mg U nivers mg chewable 2-20 by mouth ity of tablet 00:22: daily. [address] lisinopril 2020-0 Yes 5mg Take 5 mg Un dg 5 mg tablet 2-20 by mouth 2 it y of 00:22: (two) [place] [address] times Medical daily. Branch aspirin 81 2020-0 Yes 81mg Take 81 mg U nivers mg chewable 2-20 by mouth ity of tablet 00:22: daily. [address] Branch lisinopril 2020-0 Yes 5mg Take 5 mg Un dg 5 mg tablet 2-20 by mouth 2 it y of 00:22: (two) [place] [address] times Medical daily. Branch aspirin 81 2020-0 Yes 81mg Take 81 mg U nivers mg chewable 2-20 by mouth ity of tablet 00:22: daily. [address] Branch lisinopril 2020-0 Yes 5mg Take 5 mg Un dg 5 mg tablet 2-20 by mouth 2 it y of 00:22: (two) [place] 41 times Medical daily. Branch aspirin 81 2020-0 Yes 81mg Take 81 mg U nivers mg chewable 2-20 by mouth ity of tablet 00:22: daily. [place] [address] Medical Branch lisinopril 2020-0 Yes 5mg Take 5 mg Un dg 5 mg tablet 2-20 by mouth 2 it y of 00:22: (two) [place] 41 times Medical daily. Branch insulin NPH 2020-0 Yes [id number] 10U inject 10 Univers 100 unit/mL 2-20 Units ity of injection 00:00: under the Nas as 00 skin every Medical morning. Branch insulin NPH 2020-0 Yes [id number] 10U inject 10 Univers 100 unit/mL 2-20 Units ity of injection 00:00: under the Nas as 00 skin every Medical morning. Branch insulin NPH 2020-0 Yes [id number] 10U inject 10 Univers 100 unit/mL 2-20 Units ity of injection 00:00: under the Nas as 00 skin every Medical morning. Branch insulin NPH 2020-0 Yes [id number] 10U inject 10 Univers 100 unit/mL 2-20 Units ity of injection 00:00: under the Nas as 00 skin every Medical morning. Branch insulin NPH 2020-0 Yes [id number] 10U inject 10 Univers 100 unit/mL 2-20 Units ity of injection 00:00: under the Nas as 00 skin every Medical morning. Branch insulin NPH 2020-0 Yes [id number] 10U inject 10 Univers 100 unit/mL 2-20 Units ity of injection 00:00: under the Nas as 00 skin every Medical morning. Branch insulin NPH 2020-0 Yes 6U 6 Units, Un dg (HUMULIN N) 2-19 Subcutaneo it y of injection 6 23:00: [place], QPM, [place] Units 00 First dose Medical on Wed Branch 09/13/19 at 1700, Until Discontinu ed, Routine insulin 2020-0 Yes 3U 3 Units, Univer s regular 2-19 Subcutaneo ity of human 22:30: us, BIDAC, [place] (HUMULIN R) 00 First dose Me dical injection 3 on Wed Branch Units 09/13/19 at 1630, Until Discontinu ed, Routine clopidogreL 2020-0 Yes 75mg 75 mg, Univ ers (PLAVIX) -19 Oral, ity of tablet 75 15:00: DAILY, [place] mg 00 First dose Medical on Wed Branch 09/13/19 at 0900, Until Discontinu ed, Routine insulin NPH 2020-0 2020- No 6U 6 Units, U nivers (HUMULIN N) -19 Subcutaneo i ty of injection 6 15:00: 22:02 us, QAM, [place] Units 00 :45 First dose Medical on Wed Branch 09/13/19 at 0900, Until Discontinu ed, Routine metoprolol 2020-0 Yes 12.5mg 12.5 mg, U nivers tartrate -19 Oral, BID, ity o f (LOPRESSOR) 02:00: First dose [place] half tablet 00 on Tue Medica l 12.5 mg 09/12/19 at Branch 2000, Until Discontinu ed, Routine metoprolol 2020-0 Yes [id number] 12.5mg Take 0.5 Univers tartrate 25 2-19 tablets by it y of mg tablet 00:00: mouth 2 [place] 00 (two) Medical times Branch daily. insulin NPH 2020-0 Yes [id number] 6U inject 6 Univers 100 unit/mL 2-19 Units ity of injection 00:00: under the Nas as 00 skin every Medical evening. Branch insulin 2020-0 Yes [id number] 3U inject 3 U nivers regular 2-19 Units ity of human 100 00:00: under the Nas as unit/mL 00 skin 2 Medical injection (two) Branch times daily before breakfast and dinner. metoprolol 2020-0 Yes [id number] 12.5mg Take 0.5 Univers tartrate 25 2-19 tablets by it y of mg tablet 00:00: mouth 2 [place] 00 (two) Medical times Branch daily. insulin NPH 2020-0 Yes [id number] 6U inject 6 Univers 100 unit/mL 2-19 Units ity of injection 00:00: under the Nas as 00 skin every Medical evening. Branch insulin 2020-0 Yes [id number] 3U inject 3 U nivers regular 2-19 Units ity of human 100 00:00: under the Nas as unit/mL 00 skin 2 Medical injection (two) Branch times daily before breakfast and dinner. metoprolol 2020-0 Yes [id number] 12.5mg Take 0.5 Univers tartrate 25 2-19 tablets by it y of mg tablet 00:00: mouth 2 (two) Medical times Branch daily. insulin NPH 2020-0 Yes [id number] 6U inject 6 Univers 100 unit/mL 2-19 Units ity of injection 00:00: under the Nas as 00 skin every Medical evening. Branch insulin 2020-0 Yes [id number] 3U inject 3 U nivers regular 2-19 Units ity of human 100 00:00: under the Nas as unit/mL 00 skin 2 Medical injection (two) Branch times daily before breakfast and dinner. metoprolol 2020-0 Yes [id number] 12.5mg Take 0.5 Univers tartrate 25 2-19 tablets by it y of mg tablet 00:00: mouth 2 (two) Medical times Branch daily. insulin NPH 2020-0 Yes [id number] 6U inject 6 Univers 100 unit/mL 2-19 Units ity of injection 00:00: under the Nas as 00 skin every Medical evening. Branch insulin 2020-0 Yes [id number] 3U inject 3 U nivers regular 2-19 Units ity of human 100 00:00: under the Nas as unit/mL 00 skin 2 Medical injection (two) Branch times daily before breakfast and dinner. metoprolol 2020-0 Yes [id number] 12.5mg Take 0.5 Univers tartrate 25 2-19 tablets by it y of mg tablet 00:00: mouth 2 (two) Medical times Branch daily. insulin NPH 2020-0 Yes [id number] 6U inject 6 Univers 100 unit/mL 2-19 Units ity of injection 00:00: under the Nas as 00 skin every Medical evening. Branch insulin 2020-0 Yes [id number] 3U inject 3 U nivers regular 2-19 Units ity of human 100 00:00: under the Nas as unit/mL 00 skin 2 Medical injection (two) Branch times daily before breakfast and dinner. metoprolol 2020-0 Yes [id number] 12.5mg Take 0.5 Univers tartrate 25 2-19 tablets by it y of mg tablet 00:00: mouth 2 (two) Medical times Branch daily. insulin NPH 2020-0 Yes [id number] 6U inject 6 Univers 100 unit/mL 2-19 Units ity of injection 00:00: under the Nas as 00 skin every Medical evening. Branch insulin 2020-0 Yes [id number] 3U inject 3 U nivers regular 2-19 Units ity of human 100 00:00: under the Nas as unit/mL 00 skin 2 Medical injection (two) Branch times daily before breakfast and dinner. Sliding 2020-0 Yes Subcutaneo Univ ers Scale 2-18 us, Q4H, ity of Insulin - 22:00: First dose [place] Aspart 00 on [facility] (NOVOLOG) + 09/12/19 at Br [facility] Fsbg 1600, Testing Until Discontinu ed, Routine alum-mag 2020-0 Yes 30mL 30 mL, Univers hydroxide-s 2-18 Oral, ity of imeth 05:11: Q6HPRN, [place] (MAALOX 47 Starting Medical PLUS / [facility] MAG-AL 09/11/19 at PLUS) 2311, 200-200-20 Until mg/5 mL Discontinu suspension ed, 30 mL Routine, Indigestio n atorvastati 2019-0 Yes 40mg 40 mg, Univ ers n (LIPITOR) 2-18 Enteral, ity of tablet 40 03:00: QHS, First [place] mg 00 dose on Medical [facility] Branch 09/11/19 at 2100, Until Discontinu ed, Routine phenol 2019-0 Yes 1{spray 1 [place] Branch, [facility] ers (SORE 2-18 } Oral, PRN, ity of THROAT 02:56: Starting [place] (PHENOL)) 32 Mon Medical 1.4 % spray 09/11/19 at [facility] bottle 1 2055, Long Branch Until Discontinu ed, Routine, Sore throat benzocaine- 2019-0 Yes 1{lozen 1 Lozenge, [facility] menthol 2-18 ge} Oral, ity of (CEPACOL 02:46: Q4HPRN, [place] SORE THROAT 32 Starting Medi clementine (CHELY-MEN)) [facility] lozenge 1 09/11/19 at Lozenge 2045, Until Discontinu ed, Routine, Sore throat alum-mag 2020-0 2020- No 30mL 30 mL, Univer s hydroxide-s -17 -18 Oral, ity of imeth 23:30: 00:15 ONCE, 1 [place] (MAALOX 00 :00 dose, Mon Medical PLUS / 09/11/19 at Branch MAG-AL 1730, PLUS) Routine 200-200-20 mg/5 mL suspension 30 mL Sliding 2019-0 2020- No Subcutaneo Uni vers Scale -09-12 us, Q3H, ity of Insulin - 23:00: 18:31 First dose [place] Aspart 00 :[address] [facility] Medical (NOVOLOG) + 09/11/19 at Br anch Fsbg 1700, Testing Until Discontinu ed, Routine D5W 0.45% 2019- 2020- No IV Univers NaCl 09-11 Infusion, ity of (1/2NS) 1 L 22:30: 05:11 at 150 Nas as + KCL 20 00 :07 mL/hr, Medical mEq CONTINUOUS Branch , Starting 09/11/19 at 1630, Until Wed09/11/19 at 2311, Routine acetaminoph 2019- Yes 650mg 650 mg, Un dg en 09-11 Oral, ity of (TYLENOL) 21:04: Q6HPRN, [place] tablet 650 00 Starting Medic al mg [facility] 09/11/19 at 1504, Until Discontinu ed, Routine, Pain (scale 1-3) Sliding 2020- No Subcutaneo Uni vers Scale 09-11 us, Q4H, ity of Insulin - 18:00: 22:14 First dose [place] Aspart 00 :[address] [facility] Medical (NOVOLOG) + 09/11/19 at Br [facility] Fsbg 1200, Testing Until Discontinu ed, Routine Saline 2019- 2020- No 6mL 6 mL, Univers Bubble 09-11 Injection, ity of Study 17:45: 15:45 SEE-INSTRU [place] 00 :34 CTIONS, [facility] Starting Branch [facility] 09/11/19 at 1145, Until Wed09/13/19 at 0945, Routine Saline 2019- 2020- No 6mL 6 mL, Univers Bubble 09-11 Injection, ity of Study 17:45: 15:45 SEE-INSTRU [place] 00 :34 CTIONS, [facility] Starting Branch [facility] 09/11/19 at 1145, Until Wed09/13/19 at 0945, Routine insulin 2019- 2020- No .15U/kg 3 Units Uni vers aspart 09-11 /d (rounded ity of RAPID 16:15: 22:02 from 2.55 [place] (NOVOLOG) 00 :45 Units = Medical injection 3 0.15 Branch Units Units/kg/d ay ?51 kg), Subcutaneo us, TID MEALS, First dose on Wed09/11/19 at 1015, Until Discontinu ed, Routine pantoprazol 2019-0 Yes 40mg 40 mg, IV U nivers e - Piggyback, ity of (PROTONIX) 15:00: DAILY, [place] 40 mg in 00 First dose Medic al NaCl 0.9% on Wed Branch (NS) 100 mL 09/11/19 at MINI-BAG 0900, Until Discontinu ed, 100 mL heparin 2020-0 Yes 5000U 5,000 Univers (porcine) 09-11 Units, ity of injection 14:00: Subcutaneo [place] 5,000 Units 00 us, Q12H, Med ical First dose Branch on Wed09/11/19 at 0800, Until Discontinu ed, Routine dextrose 2019- 2020- No 250mL 250 mL, IV U nivers 10% (D10W) 09-11 Infusion, ity of bolus 03:30: 02:30 ONCE, [facility] infusion 00 :00 09/10/19 at Medic al 250 mL 2130, For Branch 1 dose
De xtrose 10% 250 mL bag contains:& nbsp;10 gm = 100 mL 20 gm = 200 mL 25 gm = 250 mL (whole bag) The maximum rate at which dextrose can be infused without producing glycosuria is 0.5 g/kg/hour. BUD: If wrapper is open bag is good for 30 days at room temperatur e. <b r> lactated 2019-0 2020- No 500mL at 999 Unive rs ringers IV 09-11 mL/hr, 500 it y of infusion 02:18: 03:00 mL, [place] 500 mL 00 :00 Intravenou Medical s, ONCE, 1 Branch dose, [place] 09/10/19 at 2030, Routine heparin 2019-0 2020- No 12U/kg/ 12 Univer s 25,000 09-10-17 h Units/kg/h ity of units/250mL 18:30: 02:20 r ?51 kg [place] in NS 00 :45 (6.12 Medical weight mL/hr), IV Branch based Infusion, dosing ACS CONTINUOUS protocol , Starting 09/10/19 at 1230, Until Wed09/10/19 at 2020 D5W 0.45% 2020-0 2020- No IV Univers NaCl - 02-17 Infusion, ity of (1/2NS) 1 L 18:17: 22:20 at 200 Nas as + KCL 20 00 :29 mL/hr, Medical mEq CONTINUOUS Branch , Starting 09/10/19 at 1230, Until 09/11/19 at 1620, Routine insulin 2020-0 2020- No .1U/kg/ 0.1 Univer s regular -10 09-19 h Units/kg/h ity o f human 18:00: 15:44 r ?51 kg [place] (HUMULIN R) 42 :34 (5.1 Medical 100 Units mL/hr), IV Bran ch in NaCl Infusion, 0.9% (NS) TITRATE, 100 mL Starting infusion 09/10/19 at 1200, Until 09/13/19 at 0944 heparin 2020-0 2020- No 60U/kg 3,060 Univer s 1000 -10 09-16 Units (60 ity of unit/mL 17:30: 18:40 Units/kg [place] injection 00 :00 ?51 kg), Medica l Soln 3,060 IV Push, Branc h Units ONCE, 1 dose, [place] 09/10/19 at 1130, Routine aspirin 2020-0 Yes 81mg 81 mg, Univers chewable 2-16 Enteral, ity of tablet 81 15:30: DAILY, [place] mg 00 First dose Medical on Sun Branch 09/10/19 at 0930, Until Discontinu ed, Routine glucagon 2020-0 Yes 1mg 1 mg, Univers (GLUCAGEN 2-16 Intramuscu ity of DIAGNOSTIC 15:00: lar, PRN, [place] KIT) 11 Starting Medical injection 1 Sun Branch mg 09/10/19 at 0900, Until Discontinu ed, MACKENZIE, Blood Glucose < or = 70 mg/dL and patient is unable to swallow or has mental changes. dextrose 50 2020-0 Yes 25mL 25 mL, Univ ers % in water 2-16 Slow IV ity of (D50W) 15:00: Push, PRN, [place] injection 10 Starting Medica l 25 mL [place] Branch 09/10/19 at 0900, Until Discontinu ed, MACKENZIE, Blood Glucose < or = 70 mg/dL and patient is unable to swallow or has mental status changes. Sliding 2019- 2020- No Subcutaneo Uni vers Scale 09-10 us, AC+HS, ity of Insulin-Reg 13:30: 18:39 First dose [place] ular + Fsbg 00 :39 on Sun Medica l Testing 09/10/19 at Branch 0730, Until Discontinu ed, Routine pantoprazol 2020- No 80mg 80 mg, IV Univers e 09-10 Piggyback, ity of (PROTONIX) 13:30: 13:42 ONCE, 1 [place] as 80 mg in 00 :00 dose, Sun Medica l NaCl 0.9% 09/10/19 at Bran ch (NS) 100 mL 0730, 100 IV mL Piggyback NaCl 0.9% 0 2020- No 1000mL at 250 Uni vers (NS) IV 09-10-16 mL/hr, ity of infusion 09:30: 18:06 Intravenou [place] 1,000 mL 00 :17 s, Medical CONTINUOUS [place] , Starting 09/10/19 at 0330, Until 09/10/19 at 1206, MACKENZIE D5W 0.45% 2019-2019- No Intravenou U nivers NaCl 09-10- s, at 150 ity of (1/2NS) 1 L 06:45: 18:06 mL/hr, Nas as + KCL 20 00 :17 CONTINUOUS Medic al mEq , Starting Branch 09/10/19 at 0045, Until 09/10/19 at 1206, MACKENZIE NaCl 0.9% 2019-0 2020- No 1000mL at 250 Uni vers (NS) IV 09-10-16 mL/hr, ity of infusion 05:30: 05:43 1,000 mL, Nas as 1,000 mL 00 :31 IV Medical Infusion, Branch CONTINUOUS , Starting 09/09/19 at 2330, Until 09/09/19 at 2343, MACKENZIE midazolam 2019-0 2020- No 1mg/h 1-10 mg/hr Univers (VERSED) 2-16 02-18 (1-10 ity of STD 50 mg 05:03: 20:30 mL/hr), IV [place] in NaCl 11 :44 Infusion, Medical 0.9% (NS) TITRATE, Branch 50 mL Starting infusion Sat RTU 09/09/19 at 2303, Until 09/12/19 at 1430 vecuronium 2019- 2020- No 8mg 8 mg, IV Un dg (NORCURON) 09-10 Push, ity of injection 8 03:30: 22:14 ONCE, 1 [place] mg 00 :00 dose, Sat Medical 09/09/19 at Branch 2130, STAT ketamine 2019- 2020- No 100mg 100 mg, Univ ers (KETALAR) 09-10 Slow IV ity of injection 03:30: 22:12 Push, [place] 100 mg 00 :00 ONCE, 1 Medical dose, Sat Branch 09/09/19 at 2130, MACKENZIE NORepinephr 2020- No .05ug/k 0.05-3 Univers ine 4 mg in 09-10 g/min mcg/kg/min ity of D5W 250 mL 02:49: 20:30 ?51.3 kg [place] infusion 10 :44 (9.6188-57 Medic al RTU 7.125 Branch mL/hr, rounded to 9.62-577.1 3 mL/hr), IV Infusion, TITRATE, MAP Goal > or = 65 mmHg, Starting 09/09/19 at 2048
In itiate titration at 0.05 mcg/kg/min . &nb sp;Increas e by 0.01 mcg/kg/min every 30 seconds to 5 minutes as needed to reach and maintain goal blood pressure.& nbsp;&nbsp ;Maximum dose = 3 mcg/kg/min . &nb sp;If goal not maintained at maximum allowed dose, contact prescriber .
midazolam 2019- 2020- No 5mg 5 mg, IV Uni vers (VERSED) 09-10 Push, ity of injection 5 02:45: 19:40 ONCE, 1 [place] mg 00 :00 dose, Sat Medical 09/09/19 at Branch 2045, STAT midazolam 2020-0 2020- No 5mg 5 mg, IV Uni vers (VERSED) 09-10-16 Push, ity of injection 5 01:38: 01:39 ONCE, 1 [place] mg 00 :00 dose, Sat Medical 09/09/19 at Branch 1945, STAT FENTanyl PF 2019- No 25ug/h 25-300 U nivers (SUBLIMAZE 09-09 02-18 mcg/hr ity of (PF)) 2,500 23:30: 20:30 (2.5-30 [place] mcg in NaCl 16 :44 mL/hr), IV Me dical 0.9% (NS) Infusion, Branc h 250 mL TITRATE, infusion CPOT/Pain Scale Goals Determined by Provider, Starting 09/09/19 at 1730
In itiate infusion at 25 mcg/hr. Titrate by 25 mcg/hr every 1 minute to 15 minutes to identified goal pain and/or sedation scores. Maximum dose = 300 mcg/hr. If goal not maintained at maximum allowed dose, contact prescriber .
propofol IV 2019- No 5ug/kg/ 5-75 Un dg infusion 09-09-16 min mcg/kg/min ity of 23:30: 08:18 ?51.3 kg [place] 16 :37 (1.539-23. Medical 085 mL/hr, Branch rounded to 1.54-23.09 mL/hr), IV Infusion, TITRATE, Sedation-R ASS score (0 to -1), Starting 09/09/19 at 1730
In itiate infusion at 5 mcg/kg/min and titrate by 5 mcg/kg/min every 30 seconds to 10 minutes to goal sedation score. Maximum dose = 75 mcg/kg/min . If goal not maintained at maximum allowed dose, contact prescriber . &nbs p;Tubing and unused portions of vials should be discarded after 12 hours.
NaCl 0.9% 2019- No 1500mL at 999 Uni vers (NS) bolus 2 02-15 mL/hr, ity of infusion 23:00: 23:45 1,500 mL, Nas as 1,500 mL 00 :00 IV Medical Infusion, Branch ONCE, 1 dose, 09/09/19 at 1700, STAT magnesium 2019- No 2g 2 g, IV Univ ers sulfate in 09-09 Piggyback, it y of water 2 23:00: 22:26 Administer Nas as gram/50 mL 00 :00 over 20 Medica l (4 %) Minutes, Branch infusion 2 ONCE, 1 g dose, 09/09/19 at 1700, Routine calcium 2019- No 1000mg 1,000 mg, Un dg chloride 09-09 Intravenou ity of 100 mg/mL 23:00: 22:03 s, ONCE, 1 [place] (10 %) 00 :00 dose, Sat Medical syringe 09/09/19 at Branch 1,000 mg 1700, STAT insulin 2019- No 10U 10 Units, Univ ers regular 09-09 Slow IV ity of human 23:00: 21:50 Push, [place] (HUMULIN R) 00 :00 ONCE, 1 Medic al injection dose, Sat Branc h 10 Units 09/09/19 at 1700, Routine lactated 2019- No 1000mL at 999 Univ ers ringers IV 09-09- mL/hr, ity of infusion 22:00: 18:11 1,000 mL, Nas as 1,000 mL 00 :43 IV Medical Infusion, Branch CONTINUOUS , Starting 09/09/19 at 1600, Until 09/10/19 at 1211, MACKENZIE NaCl 0.9% 2019- No 15mL/kg at 769.5 Univers (NS) bolus 09-09 /h mL/hr, 15 ity of infusion 21:45: 21:31 mL/kg/hr [place] 00 :00 ?51.3 kg Medical (769.5 Branch mL/hr), IV Infusion, ONCE, 1 dose, 09/09/19 at 1545, STAT ondansetron 2019- No 4mg 4 mg, Slow Univers (ZOFRAN 09-09 IV Push, ity of (PF)) 21:45: 20:57 ONCE, 1 [place] injection 4 00 :00 dose, Sat Med ical mg 09/09/19 at Branch 1545, MACKENZIE FENTanyl PF 2019- No 50ug 50 mcg, Un dg (SUBLIMAZE 09-09 Slow IV ity o f (PF)) 20:39: 20:30 Push, [place] injection 47 :44 Q30MIN Medical 50 mcg PRN, 3 Branch doses, Starting 09/09/19 at 1439, Until 09/12/19 at 1430, MACKENZIE, Pain (scale 7-10) insulin 2020-0 2020- No 6U 6 Units, Unive rs regular 08-17 Subcutaneo ity o f human 13:15: 12:17 , ONCE, [place] (HUMULIN R) 00 :00 1 dose, Medic al injection 6 [place] Branch Units 08/17/19 at 0715, Routine NaCl 0.9% 2019-0 Yes 1000mL at 999 Univ ers (NS) IV 1-23 mL/hr, ity of infusion 11:30: Intravenou [place] as 1,000 mL 00 s, Medical CONTINUOUS Branch , Starting [place] 08/17/19 at 0530, Until Discontinu ed, Routine ondansetron 2019-0 2020- No 4mg 4 mg, Slow Univers (ZOFRAN 08-17 IV Push, ity of (PF)) 11:30: 11:01 ONCE, 1 [place] injection 4 00 :00 dose, [place] Med ical mg 08/17/19 at Branch 0530, MACKENZIE FENTanyl PF 2019-0 2020- No 50ug 50 mcg, Un dg (SUBLIMAZE 08-17 Slow IV ity o f (PF)) 11:30: 11:01 Push, [place] injection 00 :00 ONCE, 1 Medical 50 mcg dose, [place] Branch 08/17/19 at 0530, Routine aspirin 81 2019-0 Yes 81mg Take 81 mg U nivers mg chewable 08-17 by mouth ity of tablet 10:20: daily. [place] 15 Medical Branch lisinopril 2020-0 Yes 5mg Take 5 mg Un dg 5 mg tablet 23 by mouth 2 it y of 10:20: (two) [place] 15 times Medical daily. Branch ondansetron 2020-0 Yes [id number] 4mg Take 1 Univers (ZOFRAN) 4 23 tablet by ity of mg tablet 00:00: mouth [place] 00 every 8 Medical (eight) Branch hours as needed for Nausea and Vomiting (N/V). traMADol 2020-0 Yes [id number] 50mg Take 1 Uni vers (ULTRAM) 50 08-17 tablet by ity of mg tablet 00:00: mouth [place] 00 every 6 Medical (six) Branch hours as needed for Pain (scale 7-10). ondansetron 2020- No [id number] 4mg Take 1 Univers (ZOFRAN) 4 08-17 tablet by ity of mg tablet 00:00: 00:00 mouth [place] 00 :00 every 8 Medical (eight) Branch hours as needed for Nausea and Vomiting (N/V). traMADol 2020- No [id number] 50mg Take 1 Un dg (ULTRAM) 50 08-17 tablet by it y of mg tablet 00:00: 00:00 mouth [place] 00 :00 every 6 Medical (six) Branch hours as needed for Pain (scale 7-10). ezetimibe Yes 10mg Take 1 Univer s 10 mg 7-31 tablet by ity of tablet 00:00: mouth [place] 00 daily. Get Medical blood work Branch done April 26, 2019 ezetimibe Yes 10mg Take 1 Univer s 10 mg 7-31 tablet by ity of tablet 00:00: mouth [place] 00 daily. Get Medical blood work Branch done April 26, 2019 ezetimibe Yes 10mg Take 1 Univer s 10 mg 7-31 tablet by ity of tablet 00:00: mouth [place] 00 daily. Get Medical blood work Branch done April 26, 2019 ezetimibe Yes 10mg Take 1 Univer s 10 mg 7-31 tablet by ity of tablet 00:00: mouth [place] 00 daily. Get Medical blood work Branch done April 26, 2019 ezetimibe Yes 10mg Take 1 Univer s 10 mg 7-31 tablet by ity of tablet 00:00: mouth [place] 00 daily. Get Medical blood work Branch done April 26, 2019 ezetimibe Yes 10mg Take 1 Univer s 10 mg 7-31 tablet by ity of tablet 00:00: mouth [place] 00 daily. Get Medical blood work Branch done April 26, 2019 ezetimibe Yes 10mg Take 1 Univer s 10 mg 7-31 tablet by ity of tablet 00:00: mouth [place] 00 daily. Get Medical blood work Branch done April 26, 2019 ezetimibe 2019-0 Yes 10mg Take 1 Univer s 10 mg 7-31 tablet by ity of tablet 00:00: mouth [place] 00 daily. Get Medical blood work Branch done April 26, 2019 ezetimibe 2018-0 Yes 10mg Take 1 Univer s 10 mg 7-31 tablet by ity of tablet 00:00: mouth [place] 00 daily. Get Medical blood work Branch done April 26, 2019 ezetimibe 2018-0 Yes 10mg Take 1 Univer s 10 mg 7-31 tablet by ity of tablet 00:00: mouth [place] 00 daily. Get Medical blood work Branch done April 26, 2019 ezetimibe 0 Yes 10mg Take 1 Univer s 10 mg 7-31 tablet by ity of tablet 00:00: mouth [place] 00 daily. Get Medical blood work Branch done April 26, 2019 lisinopril 2018-0 Yes 5mg Take 5 mg Un dg 5 mg tablet 7-02 by mouth 2 it y of 16:59: (two) [place] 15 times Medical daily. Branch lisinopril 2018-0 Yes 5mg Take 5 mg Un dg 5 mg tablet 7-02 by mouth 2 it y of 16:59: (two) [place] 15 times Medical daily. Branch lisinopril 0 Yes 5mg Take 5 mg Un dg 5 mg tablet 7-02 by mouth 2 it y of 16:59: (two) [place] 15 times Medical daily. Branch lisinopril 0 Yes 5mg Take 5 mg Un dg 5 mg tablet 7-02 by mouth 2 it y of 16:59: (two) [place] 15 times Medical daily. Branch aspirin 81 2018-0 Yes 81mg Take 81 mg U nivers mg chewable 7-02 by mouth ity of tablet 16:44: daily. [address] aspirin 81 2019-0 Yes 81mg Take 81 mg U nivers mg chewable 7-02 by mouth ity of tablet 16:44: daily. [address] aspirin 81 2019-0 Yes 81mg Take 81 mg U nivers mg chewable 7-02 by mouth ity of tablet 16:44: daily. [address] aspirin 81 2018-0 Yes 81mg Take 81 mg U nivers mg chewable 7-02 by mouth ity of tablet 16:44: daily. [address] ondansetron 2018-0 Yes [id number] 4mg Take 1 Univers 4 mg 6-16 tablet by ity of disintegrat 00:00: mouth [place] ing tablet 00 every 8 Medica l (eight) Branch hours as needed for Nausea and Vomiting (N/V). ondansetron 2019-0 Yes [id number] 4mg Take 1 Univers 4 mg 6-16 tablet by ity of disintegrat 00:00: mouth [place] ing tablet 00 every 8 Medica l (eight) Branch hours as needed for Nausea and Vomiting (N/V). ondansetron 2019-0 Yes [id number] 4mg Take 1 Univers 4 mg 6-16 tablet by ity of disintegrat 00:00: mouth [place] ing tablet 00 every 8 Medica l (eight) Branch hours as needed for Nausea and Vomiting (N/V). ondansetron 2019- Yes [id number] 4mg Take 1 Univers 4 mg 6-16 tablet by ity of disintegrat 00:00: mouth [place] ing tablet 00 every 8 Medica l (eight) Branch hours as needed for Nausea and Vomiting (N/V). ondansetron 2019- Yes [id number] 4mg Take 1 Univers 4 mg 6-16 tablet by ity of disintegrat 00:00: mouth [place] ing tablet 00 every 8 Medica l (eight) Branch hours as needed for Nausea and Vomiting (N/V). ondansetron 2018- 2020- No [id number] 4mg Take 1 Univers 4 mg 6-16 02-19 tablet by ity of disintegrat 00:00: 00:00 [place] tablet 00 :00 every 8 Medica l (eight) Branch hours as needed for Nausea and Vomiting (N/V). ATORVASTATI 2019-0 Yes [id number] TAKE ONE Univers N 80 mg 5-09 07 TABLET BY ity of tablet 00:00: MOUTH AT [place] 00 BEDTIME Medical Branch METOPROLOL 2019-0 Yes [id number] TAKE ONE Univers TARTRATE 25 5-09 07 TABLET BY ity of mg tablet 00:00: MOUTH [place] 00 TWICE A Medical DAY Branch ATORVASTATI 2019-0 Yes [id number] TAKE ONE Univers N 80 mg 5-09 07 TABLET BY ity of tablet 00:00: MOUTH AT [place] 00 BEDTIME Medical Branch METOPROLOL 2019-0 Yes [id number] TAKE ONE Univers TARTRATE 25 5-09 07 TABLET BY ity of mg tablet 00:00: MOUTH [place] TWICE A Medical DAY Branch ATORVASTATI 2019-0 Yes [id number] TAKE ONE Univers N 80 mg 5- 07 TABLET BY ity of tablet 00:00: MOUTH AT [address] METOPROLOL 2019-0 Yes [id number] TAKE ONE Univers TARTRATE 25 5- 07 TABLET BY ity of mg tablet 00:00: MOUTH [place] TWICE A Medical DAY Branch ATORVASTATI 2019-0 Yes [id number] TAKE ONE Univers N 80 mg 5- 07 TABLET BY ity of tablet 00:00: MOUTH AT [address] ATORVASTATI 2019-0 Yes [id number] TAKE ONE Univers N 80 mg 5- 07 TABLET BY ity of tablet 00:00: MOUTH AT [address] ATORVASTATI 2019-0 Yes [id number] TAKE ONE Univers N 80 mg 5- 07 TABLET BY ity of tablet 00:00: MOUTH AT [address] ATORVASTATI 2019-0 Yes [id number] TAKE ONE Univers N 80 mg 5- 07 TABLET BY ity of tablet 00:00: MOUTH AT [address] ATORVASTATI 2019-0 Yes [id number] TAKE ONE Univers N 80 mg 5- 07 TABLET BY ity of tablet 00:00: MOUTH AT [address] ATORVASTATI 2019-0 Yes [id number] TAKE ONE Univers N 80 mg 5-09 TABLET BY ity of tablet 00:00: MOUTH AT [address] METOPROLOL 2019-0 Yes [id number] TAKE ONE Univers TARTRATE 25 5- 07 TABLET BY ity of mg tablet 00:00: MOUTH [place] [address] TWICE A Medical DAY Branch ATORVASTATI 2019-0 Yes [id number] TAKE ONE Univers N 80 mg 5- 07 TABLET BY ity of tablet 00:00: MOUTH AT [address] Medical Branch METOPROLOL 2019-0 Yes [id number] TAKE ONE Univers TARTRATE 25 5- 07 TABLET BY ity of mg tablet 00:00: MOUTH [place] [address] TWICE A Medical DAY Branch ATORVASTATI 2019-0 Yes [id number] TAKE ONE Univers N 80 mg 5-09 07 TABLET BY ity of tablet 00:00: MOUTH AT [address] Medical [place] METOPROLOL 2019-0 2020- No [id number] TAKE ONE Univers TARTRATE 25 5- 02-19 07 TABLET BY it y of mg tablet 00:00: 00:00 MOUTH [place] 00 :00 TWICE A Medical DAY Branch clopidogrel 2019-0 Yes [id number] 75mg Take 1 Univers 75 mg 4-04 07 tablet by ity of tablet 00:00: mouth [place] 00 daily. Medical Branch clopidogrel 2019-0 Yes [id number] 75mg Take 1 Univers 75 mg 4-04 07 tablet by ity of tablet 00:00: mouth [place] 00 daily. Medical Branch clopidogrel 2019-0 Yes [id number] 75mg Take 1 Univers 75 mg 4-04 07 tablet by ity of tablet 00:00: mouth [place] 00 daily. Medical Branch clopidogrel 2019-0 Yes [id number] 75mg Take 1 Univers 75 mg 4-04 07 tablet by ity of tablet 00:00: mouth [place] 00 daily. Medical Branch clopidogrel 2019-0 Yes [id number] 75mg Take 1 Univers 75 mg 4-04 07 tablet by ity of tablet 00:00: mouth [place] 00 daily. Medical Branch clopidogrel 2019-0 Yes [id number] 75mg Take 1 Univers 75 mg 4-04 07 tablet by ity of tablet 00:00: mouth [place] 00 daily. Medical Branch clopidogrel 2019-0 Yes [id number] 75mg Take 1 Univers 75 mg 4-04 07 tablet by ity of tablet 00:00: mouth [place] 00 daily. Medical Branch clopidogrel 2019-0 Yes [id number] 75mg Take 1 Univers 75 mg 4-04 07 tablet by ity of tablet 00:00: mouth [place] 00 daily. Medical Branch clopidogrel 2019-0 Yes [id number] 75mg Take 1 Univers 75 mg 4-04 tablet by ity of tablet 00:00: mouth [place] 00 daily. Medical Branch clopidogrel 2019-0 Yes [id number] 75mg Take 1 Univers 75 mg 4-04 07 tablet by ity of tablet 00:00: mouth [place] 00 daily. Medical Branch clopidogrel 2019-0 Yes [id number] 75mg Take 1 Univers 75 mg 4-04 07 tablet by ity of tablet 00:00: mouth [place] 00 daily. Medical Branch insulin 2017- Yes [id number] inject 5 Un dg aspart 1-02 Units ity of (NOVOLOG 00:00: [place] FLEXPEN[place] 00 skin 3 Medical 100 unit/mL (three) Branc h injection times daily before meals. + sliding scale as mentioned upto 8 units with meals insulin 2016-07 Yes [id number] inject 5 Un dg aspart 1-02 Units ity of (NOVOLOG 00:00: [place] FLEXPEN[place] 00 skin 3 Medical 100 unit/mL (three) Branc h injection times daily before meals. + sliding scale as mentioned upto 8 units with meals insulin 2016-07 Yes [id number] inject 5 Un dg aspart 1-02 Units ity of (NOVOLOG 00:00: [place] FLEXPEN) 00 skin 3 Medical 100 unit/mL (three) Branc h injection times daily before meals. + sliding scale as mentioned upto 8 units with meals insulin 2016-07 Yes [id number] 5U inject 5 Un dg aspart 1-02 Units ity of (NOVOLOG 00:00: [place] FLEXPEN) 00 skin 3 Medical 100 unit/mL (three) Branc h injection times daily before meals. + sliding scale as mentioned upto 8 units with meals insulin 2016-07 Yes [id number] 5U inject 5 Un dg aspart 1-02 Units ity of (NOVOLOG 00:00: [place] FLEXPEN) 00 skin 3 Medical 100 unit/mL (three) Branc h injection times daily before meals. + sliding scale as mentioned upto 8 units with meals insulin 2016-07 2020- No [id number] 5U inject 5 U nivers aspart 1-02 02-19 Units ity of (NOVOLOG 00:00: 00:00 under the [place] FLEXPEN) 00 :00 skin 3 Medical 100 unit/mL (three) Branc h injection times daily before meals. + sliding scale as mentioned upto 8 units with meals nitroglycer Yes .4mg Place 1 Uni vers in 0.4 mg 4-11 tablet ity of sublingual 00:00: under the [place] tablet 00 tongue Medical every 5 Branch (five) minutes as needed for Chest pain. nitroglycer Yes .4mg Place 1 Uni vers in 0.4 mg 4-11 tablet ity of sublingual 00:00: under the [place] tablet 00 tongue Medical every 5 Branch (five) minutes as needed for Chest pain. nitroglycer Yes .4mg Place 1 Uni vers in 0.4 mg 4-11 tablet ity of sublingual 00:00: under the [place] tablet 00 tongue Medical every 5 Branch (five) minutes as needed for Chest pain. nitroglycer 2017-[address] 1 Uni vers in 0.4 mg 4-11 tablet ity of sublingual 00:00: under the [place] tablet 00 tongue Medical every 5 Branch (five) minutes as needed for Chest pain. nitroglycer 2017-[address] 1 Uni vers in 0.4 mg 4-11 tablet ity of sublingual 00:00: under the [place] tablet 00 tongue Medical every 5 Branch (five) minutes as needed for Chest pain. nitroglycer 2017-[address] 1 Uni vers in 0.4 mg 4-11 tablet ity of sublingual 00:00: under the [place] tablet 00 tongue Medical every 5 Branch (five) minutes as needed for Chest pain. nitroglycer 2017-[address] 1 Uni vers in 0.4 mg 4-11 tablet ity of sublingual 00:00: under the [place] tablet 00 tongue Medical every 5 Branch (five) minutes as needed for Chest pain. nitroglycer 2017-[address] 1 Uni vers in 0.4 mg 4-11 tablet ity of sublingual 00:00: under the [place] tablet 00 tongue Medical every 5 Branch (five) minutes as needed for Chest pain. nitroglycer 2017-[address] 1 Uni vers in 0.4 mg 4-11 tablet ity of sublingual 00:00: under the [place] tablet 00 tongue Medical every 5 Branch (five) minutes as needed for Chest pain. nitroglycer 2017-[address] 1 Uni vers in 0.4 mg 4-11 tablet ity of sublingual 00:00: under the [place] tablet 00 tongue Medical every 5 Branch (five) minutes as needed for Chest pain. nitroglycer 2017-[address] 1 Uni vers in 0.4 mg 4-11 tablet ity of sublingual 00:00: under the [place] tablet 00 tongue Medical every 5 Branch (five) minutes as needed for Chest pain. Immunizations Ordered Filled Immunization Date Status Comments [facility] e Immunization Name Name Influenza Virus 2017-08-30 Completed Universit y of Vaccine 00:00:00 [facility] Influenza Virus 2017-08-30 Completed Universit y of Vaccine 00:00:00 [facility] Influenza Virus 2017-08-30 Completed Universit y of Vaccine 00:00:00 [facility] Influenza Virus 2017-08-30 Completed Universit y of Vaccine 00:00:00 [facility] Influenza Virus 2017-08-30 Completed Universit y of Vaccine 00:00:00 [facility] Influenza Virus 2017-08-30 Completed Universit y of Vaccine 00:00:00 [facility] Influenza Virus 2017-08-30 Completed Universit y of Vaccine 00:00:00 [facility] Influenza Virus 2017-08-30 Completed Universit y of Vaccine 00:00:00 [facility] Influenza Virus 2017-08-30 Completed Universit y of Vaccine 00:00:00 [facility] Influenza Virus 2017-08-30 Completed Universit y of Vaccine 00:00:00 [facility] Influenza Virus 2017-08-30 Completed Universit y of Vaccine 00:00:00 [facility] Vital Signs Vital Name Observation Time Observation Value Comments Source HEIGHT 2019-12-03 00:00:00 167.6 cm WEIGHT 2019-12-03 00:00:00 50.485 kg HEIGHT 2019-12-03 00:00:00 167.6 cm WEIGHT 2019-12-03 00:00:00 50.485 kg Systolic blood 2019-09-13 21:59:00 141 mm[Hg] Univer sity of pressure [facility] Diastolic blood 2019-09-13 21:59:00 72 mm[Hg] Unive rsity of pressure [facility] Heart rate 2019-09-13 21:59:00 92 /min Universi ty [facility] Body temperature 2019-09-13 21:59:00 36.67 Bisi Univ ersity of [facility] Respiratory rate 2019-09-13 21:59:00 20 /min Univ ersity [facility] Oxygen saturation in 2019-09-13 21:59:00 98 /min [facility] Arterial blood by [facility] Pulse oximetry [place] Body height 2019-09-10 14:30:00 172.7 cm Universi ty of [facility] Body weight 2019-09-10 14:30:00 51 kg Universi ty [facility] BMI 2019-09-10 14:30:00 17.10 kg/m2 Universi ty [facility] Systolic blood 2019-08-17 12:00:00 156 mm[Hg] Univer sity of pressure [facility] Diastolic blood 2019-08-17 12:00:00 82 mm[Hg] Unive rsity of pressure [facility] Heart rate 2019-08-17 12:00:00 91 /min [facility] Respiratory rate 2019-08-17 12:00:00 15 /[facility] 2019-08-17 12:00:00 97 /min [facility] Arterial blood by [facility] Pulse oximetry Branch Body height 2019-08-17 10:18:00 167.6 cm [facility] Body weight 2019-08-17 10:18:00 49.896 kg [facility] BMI 2019-08-17 10:18:00 17.75 kg/m2 [facility] Procedures Procedure Date / Time Performing Clinician Source Performed AUTHORIZATION FOR RELEASE 2021-02-06 05:01:00 Doctor Unassigned, [facility] [facility] AUTHORIZATION FOR RELEASE 2019-10-03 05:01:00 Doctor Unassigned, [facility] [place] [facility] POCT GLUCOSE (AUTOMATED) 2019-09-13 19:18:00 Aislinn Hathaway [facility] POCT GLUCOSE (AUTOMATED) 2019-09-13 15:26:00 Aislinn Hathaway [facility] BASIC METABOLIC PANEL 2019-09-13 10:19:00 Lorenzo Chavez [facility] (NA, K, CL, CO2, GLUCOSE, [place] [facility] BUN, CREATININE, CA) POCT GLUCOSE (AUTOMATED) 2019-09-13 09:51:00 Aislinn Hathaway [facility] POCT GLUCOSE (AUTOMATED) 2019-09-13 06:03:00 Aislinn Hathaway [facility] POCT GLUCOSE (AUTOMATED) 2019-09-13 03:30:00 Aislinn Hathaway [facility] POCT GLUCOSE (AUTOMATED) 2019-09-12 23:20:00 Trevor Lockhart [facility] POCT GLUCOSE (AUTOMATED) 2019-09-12 23:02:00 Trevor Lockhart [facility] POCT GLUCOSE (AUTOMATED) 2019-09-12 17:17:00 Trevor Lockhart [facility] POCT GLUCOSE (AUTOMATED) 2019-09-12 13:36:00 Trevor Lockhart [facility] BASIC METABOLIC PANEL 2019-09-12 11:16:00 Florin Zamudio [facility] (NA, K, CL, CO2, GLUCOSE, Sergei Delacruz Medica l Branch BUN, CREATININE, CA) POCT GLUCOSE (AUTOMATED) 2019-09-12 10:19:00 Trevor Lockhart [facility] POCT GLUCOSE (AUTOMATED) 2019-09-12 08:48:00 Trevor Lockhart [facility] BASIC METABOLIC PANEL 2019-09-12 05:49:00 Travis Morel [facility] (NA, K, CL, CO2, GLUCOSE, Medica l Branch BUN, CREATININE, CA) POCT GLUCOSE (AUTOMATED) 2019-09-12 05:34:00 Trevor Lockhart [facility] POCT GLUCOSE (AUTOMATED) 2019-09-12 02:37:00 Trevor Lockhart [facility] POCT GLUCOSE (AUTOMATED) 2019-09-11 23:38:00 Trevor Lockhart [facility] POCT GLUCOSE (AUTOMATED) 2019-09-11 21:34:00 Trevor Lockhart [facility] POCT GLUCOSE (AUTOMATED) 2019-09-11 18:20:00 Trevor Lockhart [facility] POCT GLUCOSE (AUTOMATED) 2019-09-11 17:11:00 Trevor Lockhart [facility] ECHO ROUTINE W/DOPPLER 2019-09-11 17:08[facility] BASIC METABOLIC PANEL 2019-09-11 16:05:00 Travis Morel [facility] (NA, K, CL, CO2, GLUCOSE, Medica l Branch BUN, CREATININE, CA) POCT GLUCOSE (AUTOMATED) 2019-09-11 16:02:00 Trevor Lockhart [facility] POCT GLUCOSE (AUTOMATED) 2019-09-11 15:22:00 Trevor Lockhart [facility] CBC WITH DIFFERENTIAL 2019-09-11 14:06:00 Rc Guo Cobre [facility] POCT GLUCOSE (AUTOMATED) 2019-09-11 14:05:00 Trevor Lockhart [facility] POCT GLUCOSE (AUTOMATED) 2019-09-11 13:15:00 Trevor Lockhart [facility] BASIC METABOLIC PANEL 2019-09-11 12:07:00 Morrical, Travis O [facility] [place] (NA, K, CL, CO2, GLUCOSE, Medica l Branch BUN, CREATININE, CA) POCT GLUCOSE (AUTOMATED) 2019-09-11 12:07:00 Trevor Lockhart [facility] POCT GLUCOSE (AUTOMATED) 2019-09-11 11:06:00 Trevor Lockhart [facility] POCT GLUCOSE (AUTOMATED) 2019-09-11 10:09:00 Trevor Lockhart [facility] POCT GLUCOSE (AUTOMATED) 2019-09-11 08:57:00 Trevor Lockhart [facility] BASIC METABOLIC PANEL 2019-09-11 08:06:00 MorricalAndreiTravis O [facility] [place] (NA, K, CL, CO2, GLUCOSE, Medica l Branch BUN, CREATININE, CA) POCT GLUCOSE (AUTOMATED) 2019-09-11 08:02:00 Trevor Lockhart [facility] POCT GLUCOSE (AUTOMATED) 2019-09-11 07:04:00 Trevor Lockhart [facility] POCT GLUCOSE (AUTOMATED) 2019-09-11 06:11:00 Trevor Lockhart [facility] POCT GLUCOSE (AUTOMATED) 2019-09-11 05:02:00 Trevor Lockhart [facility] BASIC METABOLIC PANEL 2019-09-11 04:06:00 Morrical, Travis O [facility] [place] (NA, K, CL, CO2, GLUCOSE, Medica l Branch BUN, CREATININE, CA) POCT GLUCOSE (AUTOMATED) 2019-09-11 04:01:00 Trevor Lockhart [facility] POCT GLUCOSE (AUTOMATED) 2019-09-11 03:06:00 Trevor Lockhart [facility] POCT GLUCOSE (AUTOMATED) 2019-09-11 02:49:00 Trevor Lockhart [facility] POCT GLUCOSE (AUTOMATED) 2019-09-11 02:23:00 Trevor Lockhart [facility] POCT GLUCOSE (AUTOMATED) 2019-09-11 02:00:00 Trevor Lockhart [facility] BASIC METABOLIC PANEL 2019-09-11 00:01:00 Travis Morel [facility] [place] (NA, K, CL, CO2, GLUCOSE, Medica l Branch BUN, CREATININE, CA) ACTIVATED PARTIAL 2019-09-11 00:01:00 [facility] 2019-09-10 23:50:00 Trevor Lockhart [facility] POCT GLUCOSE (AUTOMATED) 2019-09-10 22:38:00 Trevor Lockhart [facility] SPUTUM CULTURE 2019-09-10 21:37:[facility] + LACTIC ACID 2019-09-10 21:03:00 [facility] TROPONIN I 2019-09-10 21:02:00 [facility] BASIC METABOLIC PANEL 2019-09-10 21:02:00 Travis Morel [facility] [place] (NA, K, CL, CO2, GLUCOSE, Medica l Branch BUN, CREATININE, CA) POCT GLUCOSE (AUTOMATED) 2019-09-10 20:56:00 Trevor Lockhart [facility] PROTHROMBIN TIME / INR 2019-09-10 17:33:00 [facility] ACTIVATED PARTIAL 2019-09-10 17:33:00 [facility] / MSSA SCREEN BY 2019-09-10 17:29:[address] [facility] PCR, [facility] TROPONIN I 2019-09-10 17:28:00 [facility] BASIC METABOLIC PANEL 2019-09-10 17:28:00 Travis Morel [facility] (NA, K, CL, CO2, GLUCOSE, Medica l Branch BUN, CREATININE, CA) POCT GLUCOSE (AUTOMATED) 2019-09-10 13:57:00 Trevor Lockhart [facility] ABG+COOX+NA+K+GLU+CA2+ 2019-09-10 13:48:00 Lucy Morel [facility] TROPONIN I 2019-09-10 12:42:00 Kati Gross [facility] BASIC METABOLIC PANEL 2019-09-10 12:42:00 [facility] (NA, K, CL, CO2, GLUCOSE, Medica l Branch BUN, CREATININE, CA) POCT GLUCOSE (AUTOMATED) 2019-09-10 12:23:00 Trevor Lockhart [facility] POCT GLUCOSE(AGE >30DAYS) 2019-09-10 12:15:00 Travis Morel [facility] POCT GLUCOSE(AGE >30DAYS) 2019-09-10 10:15:00 Travis Morel [facility] BASIC METABOLIC PANEL 2019-09-10 10:14:00 Travis Morel iversity [facility] (NA, K, CL, CO2, GLUCOSE, Medica l Branch BUN, CREATININE, CA) POCT GLUCOSE (AUTOMATED) 2019-09-10 10:11:00 Trevor Lockhart [facility] POCT GLUCOSE (AUTOMATED) 2019-09-10 10:08:00 Trevor Lockhart [facility] POCT GLUCOSE (AUTOMATED) 2019-09-10 08:45:00 Trevor Lockhart [facility] POCT GLUCOSE (AUTOMATED) 2019-09-10 07:44:00 Trevor Lockhart [facility] POCT GLUCOSE(AGE >30DAYS) 2019-09-10 07:40:00 Travis Morel [facility] BASIC METABOLIC PANEL 2019-09-10 07:12:00 Travis Morel Un [facility] (NA, K, CL, CO2, GLUCOSE, Medica l Branch BUN, CREATININE, CA) POCT GLUCOSE (AUTOMATED) 2019-09-10 06:41:00 Trevor Lockhart [facility] POCT GLUCOSE(AGE >30DAYS) 2019-09-10 06:40:00 Travis Morel [facility] POCT GLUCOSE (AUTOMATED) 2019-09-10 05:35:00 Trevor Lockhart [facility] POCT GLUCOSE (AUTOMATED) 2019-09-10 04:33:00 Trevor Lockhart [facility] POCT GLUCOSE(AGE >30DAYS) 2019-09-10 04:30:00 Travis Morel [facility] BASIC METABOLIC PANEL 2019-09-10 04:09:00 Travis Morel [facility] [place] (NA, K, CL, CO2, GLUCOSE, Medica l Branch BUN, CREATININE, CA) POCT GLUCOSE (AUTOMATED) 2019-09-10 03:02:00 Trevor Lockhart [facility] POCT GLUCOSE(AGE >30DAYS) 2019-09-10 03:00:00 Travis Morel [facility] ABG+COOX+NA+K+GLU+CA2+ 2019-09-10 01:48:[address] [facility] POCT GLUCOSE (AUTOMATED) 2019-09-10 00:32:00 Travis Morel [facility] BASIC METABOLIC PANEL 2019-09-10 00:30:00 Travis Morel [facility] [place] (NA, K, CL, CO2, GLUCOSE, Medica l Branch BUN, CREATININE, CA) XR KUB 2019-09-10 00:29:15 Travis Morel [facility] LACTIC ACID WHOLE BLOOD 2019-09-09 23:30:00 Travis Morle [facility] TROPONIN I 2019-09-09 23:29:00 Travis Morel [facility] POCT GLUCOSE (AUTOMATED) 2019-09-09 23:23:00 Travis Morel [facility] ABG+COOX+NA+K+GLU+CA2+ 2019-09-09 22:44:00 [facility] 1 VW 2019-09-09 22:38:57 Morrical, Travis O [facility] POCT GLUCOSE (AUTOMATED) 2019-09-09 22:14:00 Travis Morel [facility] POCT GLUCOSE(AGE >30DAYS) 2019-09-09 22:10:00 Travis Morel [facility] PHOSPHORUS 2019-09-09 21:58:00 Travis Morel [facility] MAGNESIUM 2019-09-09 21:58:00 Travis Morel [facility] OSMOLALITY SERUM 2019-09-09 21:58:00 Travis Morel [facility] BETA HYDROXY-BUTYRATE 2019-09-09 21:58:00 [facility] BASIC METABOLIC PANEL 2019-09-09 21:58:00 Travis Morel [facility] (NA, K, CL, CO2, GLUCOSE, Medica l Branch BUN, CREATININE, CA) GLYCOSYLATED HEMOGLOBIN 2019-09-09 21:58:00 Travis Morel [facility] (A1C) [facility] URINALYSIS 2019-09-09 21:58:00 Travis Morel [facility] EKG-12 LEAD 2019-09-09 21:44:28 Travis Morel [facility] POCT GLUCOSE(AGE >30DAYS) 2019-09-09 21:14:00 Travis Morel [facility] POCT GLUCOSE (AUTOMATED) 2019-09-09 21:12:00 Travis Morel [facility] ABG+COOX+NA+K+GLU+CA2+ 2019-09-09 21:00:00 [facility] LACTIC ACID WHOLE BLOOD 2019-09-09 21:00:00 Travis Morel [facility] XR CHEST 1 VW 2019-09-09 20:47:11 Travis Morel [facility] COMP. METABOLIC PANEL 2019-09-09 20:35:00 [id number] TROPONIN I 2019-09-09 20:01:00 Travis Morel [facility] CBC WITH DIFFERENTIAL 2019-09-09 20:01:00 [facility] PRO-BNP 2019-09-09 20:01:00 Travis Morel [facility] EKG-12 LEAD 2019-09-09 19:56:01 Travis Morel [facility] TROPONIN I 2019-08-17 10:57:00 Du Bess [facility] COMP. METABOLIC PANEL 2019-08-17 10:57:00 Du Bess [facility] ([id number]) [facility] CBC WITH DIFFERENTIAL 2019-08-17 10:57:00 Du Bess [facility] PROTHROMBIN TIME / INR 2019-08-17 10:57:00 Du Bess [facility] LIPASE 2019-08-17 10:57:00 Du Bess [facility] XR CHEST 1 VW 2019-08-17 10:36:08 Du Bess [facility] MEDICATION HISTORY 2019-03-23 05:01:00 Doctor Shelby, [facility] RECONCILIATION FORM [facility] Encounters Start End Encounter Admission Attending Care Care Encounter Source Date/Time Date/Time Type Type Clinicians Facility Department ID 2019-12-03 Inpatient ER [facility] Medical ICU [id number] 11:22:11 NASRIN ALMANZAR 2021-02-06 2021-02-06 Orders Doctor CHINCHILLA [id number] Univers 00:00:00 00:00:00 Only Unassigned, GOLD 350.1.13.10 ity of [place] [facility] 4.2.7.2.686 Nas as [id number] [facility] [address] 2019-11-05 2019-11-05 Patient Wen Alex [id number] Univers 00:00:00 00:00:00 Outreach E Melendez 350.1.13.10 [place] [id number] [facility] [address] 2019-10-03 2019-10-03 Orders Doctor AMOR [id number] Univers 00:00:00 00:00:00 Only Unassigned, GOLD 350.1.13.10 ity of [place] [facility] 4.2.7.2.686 Nas as [phone] [facility] [address] 2019-09-21 2019-09-21 Patient Wen Alex [id number] Univers 00:00:00 00:00:00 Outreach E Melendez 350.1.13.10 [place] [id number] [facility] [address] 2019-09-14 2019-09-14 Transition Sarah Boateng [id number] Univers 00:00:00 00:00:00 of Care Stephany Melendez 350.1.13.10 [place] [id number] [facility] [address] 2019-09-09 2019-09-13 Hospital Travis Morel 1.2.8 40.114 [id number] Univers 13:40:54 18:22:00 Encounter Trevor Lockhart 350.1.13. 10 ity of [facility] 4.2.7.2.[address] [place] [address] [id number] [facility] 0[address] Branch 2019-09-09 2019-09-13 Inpatient X [facility] [id number] Univers 13:40:54 18:22:00 AISLINN [facility] 2019-08-17 2019-08-17 Emergency X [facility] [id number] Univers 04:10:57 06:40:00 DU ity [facility] 2019-08-17 2019-08-17 Emergency [facility] [id number] Univers 04:10:57 06:40:00 Du Conde 350.1.13.10 [place]y of [place] [id number] [facility] 084 Branch 2019-03-23 2019-03-23 Orders Doctor AMOR 1.2.840.114 [id number] Univers 00:00:00 00:00:00 Only Unassigned, GOLD 350.1.13.10 [place]y of [place] [facility] 4.2.7.2.686 [place] as [id number] [facility] [address]9 Branch 2019-03-01 2019-03-01 Telephone Salena Beasley 1.2.840.114 [id number] Univers 00:00:00 00:00:00 E [facility] 350.1.13.10 it [place] [phone] [facility] [address] 2019-02-27 2019-02-27 Telephone Salena Beasley [id number] Univers 00:00:00 00:00:00 [facility] 350.1.13.10 it [place] [id number] [address] 2019-02-22 2019-02-[address] [facility] [id number] [id number] Univers 00:00:00 00:00:00 [facility] 350.1.13.10 [place] [phone] [place] [id number] [place] [facility] Results Test Description Test Time Test Comments Results Result [facility] e Comments TISSUE EXAM 2019-12-12 Surgical Pathology Report 17:29:00 Case: [id number] Authorizing Provider: Jorge Goodwin, Collected: 12/07/2019 08:30 AM Ordering Location: [address] Received: 12/07/2019 01:30 PM Service Pathologist: Zainab Snider MD Specimens: A) - Biopsy, Gastric, random gastric B) - Distal Esophagus, bx C) - Proximal Esophagus, bx This addendum is issued to report the results of special stain GMS on B and C and immunohistochemical stains HSV I, HSV II and CMV on specimen B:- GMS (B and C): NEGATIVE- CMV, HSV I AND HSV II (B): NEGATIVE The interpretation of this case included the use of immunohistochemistry or special stains. Immunohistochemistry technical testing was performed at [facility], Pathology Laboratory where it was developed and its performance characteristics were determined. It has not been cleared or approved by the U.S. Food and Drug Administration. The FDA has determined that such clearance or approval is not necessary. The test is used for clinical purposes. It should not be regarded as investigational or for research. This laboratory is certified under the Clinical Laboratory Improvement Amendments of 1988 (CLIA-88) as qualified to perform high complexity clinical laboratory testing. CPT CODE: 69823; 69000 X 2; 08250 X 2 Addendum electronically signed by Zainab Snider MD on 12/12/2019 at 5:29 PMA. STOMACH, RANDOM, ENDOSCOPIC BIOPSY: - ANTRAL AND OXYNTIC TYPE GASTRIC MUCOSA WITH CHRONIC GASTRITIS - NO HELICOBACTER PYLORI-LIKE ORGANISMS SEEN ON WARTHIN-STARRY STAIN - NO INTESTINAL METAPLASIA, DYSPLASIA OR MALIGNANCY NOTEDB. DISTAL ESOPHAGUS, ENDOSCOPIC BIOPSY- ACTIVE ESOPHAGITIS WITH SEVERE ULCERATION- NO COLUMNAR MUCOSA PRESENT- NEGATIVE FOR MALIGNANCY- GMS STAIN FOR FUNGAL ELEMENTS, CMV AND HSV STAINS ARE BEING DONE; RESULTS WILL BE ISSUED IN AN ADDENDUM REPORTC. PROXIMAL ESOPHAGUS, ENDOSCOPIC BIOPSY- SQUAMOUS MUCOSA WITH SEVERE ULCERATION- NO COLUMNAR MUCOSA PRESENT- NEGATIVE FOR MALIGNANCY- GMS STAIN FOR FUNGAL ELEMENTS IS BEING DONE; RESULT WILL BE ISSUED IN AN ADDENDUM REPORT Signing Pathologist Direct Phone Line: [phone] y signed by Zainab Snider MD on 12/08/2019 at 5:16 [id number] X 3; [id number]: Upper endoscopy, biopsyPre and postop diagnosis: dysphagiaA. Biopsy, gastric; B. Distal esophagus; C. Proximal esophagusA. Received in formalin labeled with the patient's name, accession number and "gastric biopsy" with the additional description "ranodm gastric" are three pieces of hubbard mucosal-covered soft tissue measuring 0.7 x 0.3 x 0.3 cm in aggregate. The specimen is submitted in toto following filtration in cassette A1. B. Received in formalin labeled with the patient's name, accession number and "distal esophagus" with the additional description "biopsy" are multiple pieces of hubbard-white mucosal-covered soft tissue measuring 0.5 x 0.3 x 0.2 cm in aggregate. The pieces range in size from 0.1 x 0.1 x 0.1 to 0.3 x 0.2 x 0.2 cm. The specimen is submitted in toto following filtration in cassette B1. C. Received in formalin labeled with the patient's name, accession number and "proximal esophagus" with the additional description "biopsy" are multiple miniscule pieces of white soft tissue ranging in size from 0.1 to 0.2 cm in greatest dimension and measuring 1.0 x 0.2 x 0.2 cm in aggregate. The specimen is submitted in toto following filtration in cassette C1. CESAR/plPERFORMEDThe interpretation of this case included the use of immunohistochemistry or special stains.WARTHIN-STARMoses rol Slides Examined: In-house known positive controls were evaluated along with the test tissue. These control slides run alongside of the patients sample show appropriate staining. Internal positive and negative controls when available are evaluated Immunohistochemistry technical testing was performed at [facility], Pathology Laboratory where it was developed and its performance characteristics were determined. It has not been cleared or approved by the U.S. Food and Drug Administration. The FDA has determined that such clearance or approval is not necessary. The test is used for clinical purposes. It should not be regarded as investigational or for research. This laboratory is certified under the Clinical Laboratory Improvement Amendments of 1988 (CLIA-88) as qualified to perform high complexity clinical laboratory testing. BLOOD CULTURE 2019-12-08 14:00:00 Test Item Value Reference Range Interpretation Comme nts CULTURE (BEAKER) (test code = 1095) No growth in 5 days BLOOD [id number] 14:00:00 Test Item Value Reference Range Interpretation Comments CULTURE (BEAKER) (test No growth in 5 days code = 1095) POCT-GLUCOSE [id number] 12:44:00 Test Item Value Reference Range Interpretation Comments POC-GLUCOSE METER 167 mg/dL 70-110 H : TESTED A T [facility] 6720 (BEAKER) (test code = [facility] [employer] [facility], 1538) 11104: Wire Steward/Techni sebastian ID = [id number] for TERI PARK POCT-GLUCOSE [id number] 08:48:00 Test Item Value Reference Range Interpretation Comments POC-GLUCOSE METER 204 mg/dL 70-110 H : TESTED A T [facility] 6720 (BEAKER) (test code = EDUARDO Sepulveda [facility], 1538) 83800: Wire Steward/Techni sebastian ID = [id number] for TERI PARK [id number] 04:30:00 Test Item Value Reference Range Interpretation Comments PHOSPHORUS (BEAKER) (test code = 3.0 mg/dL 2.3-4.7 604) Wire Steward ID Soheila JEAN [id number] 04:30:00 Test Item Value Reference Range Interpretation Comments MAGNESIUM (BEAKER) (test code = 1.6 mg/dL 1.6-2.6 627) Wire Steward ID - MIRANDA WBASIC METABOLIC [id number] 04:30:00 Test Item Value Reference Range Interpretation Comments SODIUM (BEAKER) 136 meq/L 136-145 (test code = 381) POTASSIUM (BEAKER) 3.3 meq/L 3.5-5.1 L (test code = 379) CHLORIDE (BEAKER) 104 meq/L 98-107 (test code = 382) CO2 (BEAKER) (test 25 meq/L 22-29 code = 355) BLOOD UREA NITROGEN 12 mg/dL 7-21 (BEAKER) (test code = 354) CREATININE (BEAKER) 0.70 mg/dL 0.57-1.25 (test code = 358) GLUCOSE RANDOM 83 mg/dL 70-105 (BEAKER) (test code = 652) CALCIUM (BEAKER) 8.3 mg/dL 8.4-10.2 L (test code = 697) EGFR (BEAKER) (test 117 mL/min/1.73 ESTIM ATED GFR IS code = 1092) sq m NOT ACCURATE CREATININE CLEARANCE IN PREDICTING GLOMERULAR FILTRATION RATE . ESTIMATED GFR I S NOT APPLICABLE FOR DIALYSIS PATIEN TS. Wire Steward ID - MIRANDA WHEPATIC FUNCTION [id number] 04:30:00 Test Item Value Reference Range Interpretation Comments TOTAL PROTEIN (BEAKER) (test code = 5.8 gm/dL 6.0-8.3 L 770) ALBUMIN (BEAKER) (test code = 1145) 3.4 g/dL 3.5-5.0 L BILIRUBIN TOTAL (BEAKER) (test code 0.3 mg/dL 0.2-1.2 = 377) BILIRUBIN DIRECT (BEAKER) (test 0.2 mg/dL 0.1-0.5 code = 706) ALKALINE PHOSPHATASE (BEAKER) (test 66 U/L 40-150 code = 346) AST (SGOT) (BEAKER) (test code = 16 U/L 5-34 353) ALT (SGPT) (BEAKER) (test code = 11 U/L 6-55 347) Wire Steward MARIA LUISA JEAN WCBC W/PLT COUNT & AUTO [id number] 03:54:00 Test Item Value Reference Range Interpretation Comments WHITE BLOOD CELL COUNT (BEAKER) 7.3 K/ L 3.5-10.5 (test code = 775) RED BLOOD CELL COUNT (BEAKER) 3.84 M/ L 4.63-6.08 L (test code = 761) HEMOGLOBIN (BEAKER) (test code = 11.1 GM/DL 13.7-17.5 L 410) HEMATOCRIT (BEAKER) (test code = 33.1 % 40.1-51.0 L 411) MEAN CORPUSCULAR VOLUME (BEAKER) 86.2 fL 79.0-92.2 (test code = 753) MEAN CORPUSCULAR HEMOGLOBIN 28.9 pg 25.7-32.2 (BEAKER) (test code = 751) MEAN CORPUSCULAR HEMOGLOBIN CONC 33.5 GM/DL 32.3-36.5 (BEAKER) (test code = 752) RED CELL DISTRIBUTION WIDTH 13.3 % 11.6-14.4 (BEAKER) (test code = 412) PLATELET COUNT (BEAKER) (test 336 K/CU MM 150-450 code = 756) MEAN PLATELET VOLUME (BEAKER) 9.3 fL 9.4-12.4 L (test code = 754) NUCLEATED RED BLOOD CELLS 0 /100 WBC 0-0 (BEAKER) (test code = 413) NEUTROPHILS RELATIVE PERCENT 57 % (BEAKER) (test code = 429) LYMPHOCYTES RELATIVE PERCENT 29 % (BEAKER) (test code = 430) MONOCYTES RELATIVE PERCENT 10 % (BEAKER) (test code = 431) EOSINOPHILS RELATIVE PERCENT 3 % (BEAKER) (test code = 432) BASOPHILS RELATIVE PERCENT 1 % (BEAKER) (test code = 437) NEUTROPHILS ABSOLUTE COUNT 4.14 K/ L 1.78-5.38 (BEAKER) (test code = 670) LYMPHOCYTES ABSOLUTE COUNT 2.08 K/ L 1.32-3.57 (BEAKER) (test code = 414) MONOCYTES ABSOLUTE COUNT (BEAKER) 0.75 K/ L 0.30-0.82 (test code = 415) EOSINOPHILS ABSOLUTE COUNT 0.22 K/ L 0.04-0.54 (BEAKER) (test code = 416) BASOPHILS ABSOLUTE COUNT (BEAKER) 0.06 K/ L 0.01-0.08 (test code = 417) IMMATURE GRANULOCYTES-RELATIVE 1 % 0-1 PERCENT (BEAKER) (test code = 2801) POCT-GLUCOSE [id number] 22:40:00 Test Item Value Reference Range Interpretation Comments POC-GLUCOSE METER 41 mg/dL 70-110 L : TESTED A T [facility] 6720 (BEAKER) (test code = [facility] [place], 1538) 20662: Wire Steward/Techni sebastian ID = [id number] for MIRANDA KEENAN POCT-GLUCOSE [id number] 21:12:00 Test Item Value Reference Range Interpretation Comments POC-GLUCOSE METER 94 mg/dL 70-110 : TESTED A T [facility] 6720 (BEAKER) (test code = [facility] [place], 1538) 12663: Wire Steward/Techni sebastian ID = [id number] for SARAH RAO POCT-GLUCOSE [id number] 17:38:00 Test Item Value Reference Range Interpretation Comments POC-GLUCOSE METER 156 mg/dL 70-110 H : TESTED A T [facility] 6720 (BEAKER) (test code = [facility] [place], 1538) 62530: Wire Steward/Techni sebastian ID = [id number] for CHARLIE MONTEZ [id number] 14:53:00 Test Item Value Reference Range Interpretation Comments FERRITIN (BEAKER) (test Ferr itin: 78 code = 361) ng/mLReference Range: 24 - 380 ng/mLTest ing performed at [facility] . POCT-GLUCOSE [id number] 12:01:00 Test Item Value Reference Range Interpretation Comments POC-GLUCOSE METER 115 mg/dL 70-110 H : TESTED A T [facility] 6720 (BEAKER) (test code = [facility] [place], 1538) 75803: Wire Steward/Techni sebastian ID = [id number] for ST [facility]JC[facility], NADA POCT-GLUCOSE [id number] 09:18:00 Test Item Value Reference Range Interpretation Comments POC-GLUCOSE METER 251 mg/dL 70-110 H : TESTED A T [facility] 6720 (BEAKER) (test code = [facility] [place], 1538) 44958: Wire Steward/Techni sebastian ID = [id number] for SAGE GREEN POCT-GLUCOSE [id number] 08:11:00 Test Item Value Reference Range Interpretation Comments POC-GLUCOSE METER 294 mg/dL 70-110 H : TESTED A T [facility] 6720 (BEAKER) (test code = [facility] [place], 1538) 14024: Wire Steward/Techni sebastian ID = [id number] for BRONYWN ROSARIO [id number] 04:16:00 Test Item Value Reference Range Interpretation Comments PHOSPHORUS (BEAKER) (test code = 3.2 mg/dL 2.3-4.7 604) Wire Steward ID - [id number] 04:16:00 Test Item Value Reference Range Interpretation Comments MAGNESIUM (BEAKER) (test code = 1.7 mg/dL 1.6-2.6 627) Wire Steward ID - LABASIC METABOLIC [id number] 04:16:00 Test Item Value Reference Range Interpretation Comments SODIUM (BEAKER) 135 meq/L 136-145 L (test code = 381) POTASSIUM (BEAKER) 3.4 meq/L 3.5-5.1 L (test code = 379) CHLORIDE (BEAKER) 102 meq/L 98-107 (test code = 382) CO2 (BEAKER) (test 27 meq/L 22-29 code = 355) BLOOD UREA NITROGEN 11 mg/dL 7-21 (BEAKER) (test code = 354) CREATININE (BEAKER) 0.73 mg/dL 0.57-1.25 (test code = 358) GLUCOSE RANDOM 132 mg/dL 70-105 H (BEAKER) (test code = 652) CALCIUM (BEAKER) 9.1 mg/dL 8.4-10.2 (test code = 697) EGFR (BEAKER) (test 112 mL/min/1.73 ESTIM ATED GFR IS code = 1092) sq m NOT ACCURATE CREATININE CLEARANCE IN PREDICTING GLOMERULAR FILTRATION RATE . ESTIMATED GFR I S NOT APPLICABLE FOR DIALYSIS PATIEN TS. Wire Steward ID - LAHEPATIC FUNCTION [id number] 04:16:00 Test Item Value Reference Range Interpretation Comments TOTAL PROTEIN (BEAKER) (test code = 6.4 gm/dL 6.0-8.3 770) ALBUMIN (BEAKER) (test code = 1145) 3.7 g/dL 3.5-5.0 BILIRUBIN TOTAL (BEAKER) (test code 0.5 mg/dL 0.2-1.2 = 377) BILIRUBIN DIRECT (BEAKER) (test 0.2 mg/dL 0.1-0.5 code = 706) ALKALINE PHOSPHATASE (BEAKER) (test 77 U/L 40-150 code = 346) AST (SGOT) (BEAKER) (test code = 16 U/L 5-34 353) ALT (SGPT) (BEAKER) (test code = 13 U/L 6-55 347) Wire Steward ID - LACBC W/PLT COUNT & AUTO [id number] 03:54:00 Test Item Value Reference Range Interpretation Comments WHITE BLOOD CELL COUNT (BEAKER) 7.0 K/ L 3.5-10.5 (test code = 775) RED BLOOD CELL COUNT (BEAKER) 4.19 M/ L 4.63-6.08 L (test code = 761) HEMOGLOBIN (BEAKER) (test code = 12.1 GM/DL 13.7-17.5 L 410) HEMATOCRIT (BEAKER) (test code = 35.9 % 40.1-51.0 L 411) MEAN CORPUSCULAR VOLUME (BEAKER) 85.7 fL 79.0-92.2 (test code = 753) MEAN CORPUSCULAR HEMOGLOBIN 28.9 pg 25.7-32.2 (BEAKER) (test code = 751) MEAN CORPUSCULAR HEMOGLOBIN CONC 33.7 GM/DL 32.3-36.5 (BEAKER) (test code = 752) RED CELL DISTRIBUTION WIDTH 13.4 % 11.6-14.4 (BEAKER) (test code = 412) PLATELET COUNT (BEAKER) (test 308 K/CU MM 150-450 code = 756) MEAN PLATELET VOLUME (BEAKER) 9.1 fL 9.4-12.4 L (test code = 754) NUCLEATED RED BLOOD CELLS 0 /100 WBC 0-0 (BEAKER) (test code = 413) NEUTROPHILS RELATIVE PERCENT 59 % (BEAKER) (test code = 429) LYMPHOCYTES RELATIVE PERCENT 28 % (BEAKER) (test code = 430) MONOCYTES RELATIVE PERCENT 10 % (BEAKER) (test code = 431) EOSINOPHILS RELATIVE PERCENT 2 % (BEAKER) (test code = 432) BASOPHILS RELATIVE PERCENT 0 % (BEAKER) (test code = 437) NEUTROPHILS ABSOLUTE COUNT 4.14 K/ L 1.78-5.38 (BEAKER) (test code = 670) LYMPHOCYTES ABSOLUTE COUNT 1.97 K/ L 1.32-3.57 (BEAKER) (test code = 414) MONOCYTES ABSOLUTE COUNT (BEAKER) 0.68 K/ L 0.30-0.82 (test code = 415) EOSINOPHILS ABSOLUTE COUNT 0.15 K/ L 0.04-0.54 (BEAKER) (test code = 416) BASOPHILS ABSOLUTE COUNT (BEAKER) 0.03 K/ L 0.01-0.08 (test code = 417) IMMATURE GRANULOCYTES-RELATIVE 1 % 0-1 PERCENT (BEAKER) (test code = 2801) POCT-GLUCOSE [id number] 21:19:00 Test Item Value Reference Range Interpretation Comments POC-GLUCOSE METER 137 mg/dL 70-110 H : TESTED A T [facility] 6720 (BEAKER) (test code = [facility] [place], 153) 76819: Wire Steward/Techni sebastian ID = [id number] for SARAH LABOY POCT-GLUCOSE [id number] 17:18:00 Test Item Value Reference Range Interpretation Comments POC-GLUCOSE METER 128 mg/dL 70-110 H : TESTED A T [facility] 6720 (BEAKER) (test code = [facility] [place], 153) 13090: Wire Steward/Techni sebastian ID = [id number] for ALEJANDRO ESPINAL [id number] 12:08:00 Test Item Value Reference Range Interpretation Comments MAGNESIUM (BEAKER) 1.9 mg/dL 1.6-2.6 Specimen moderately (test code = 627) hemolyzed Wire Steward ID - ADAMS [id number] 12:08:00 Test Item Value Reference Range Interpretation Comments PHOSPHORUS (BEAKER) 2.3 mg/dL 2.3-4.7 Specimen moderately (test code = 604) hemolyzed Wire Steward ID - ADAMS FBASIC METABOLIC [id number] 12:08:00 Test Item Value Reference Range Interpretation Comments SODIUM (BEAKER) 135 meq/L 136-145 L (test code = 381) POTASSIUM (BEAKER) 4.0 meq/L 3.5-5.1 Specimen moderately (test code = 379) hemolyzed CHLORIDE (BEAKER) 100 meq/L 98-107 (test code = 382) CO2 (BEAKER) (test 25 meq/L 22-29 code = 355) BLOOD UREA NITROGEN 10 mg/dL 7-21 (BEAKER) (test code = 354) CREATININE (BEAKER) 0.91 mg/dL 0.57-1.25 Specimen moderately (test code = 358) hemolyzed GLUCOSE RANDOM 152 mg/dL 70-105 H (BEAKER) (test code = 652) CALCIUM (BEAKER) 9.1 mg/dL 8.4-10.2 (test code = 697) EGFR (BEAKER) (test 86 mL/min/1.73 ESTIMA TODD GFR IS code = 1092) sq m NOT ACCURATE CREATININE CLEARANCE IN PREDICTING GLOMERULAR FILTRATION RATE . ESTIMATED GFR I S NOT APPLICABLE FOR DIALYSIS PATIEN TS. Wire Steward ID Soheila LAMAS FPOCT-GLUCOSE [id number] 11:32:00 Test Item Value Reference Range Interpretation Comments POC-GLUCOSE METER 156 mg/dL 70-110 H : TESTED A T [facility] 6720 (BEAKER) (test code = [facility] [employer] [place], 1538) 88551: Wire Steward/Techni sebastian ID = [id number] for JOSE C ALVES SARS-COV2/RT-PCR ([facility])2019-12-06 11:20:00 Test Item Value Reference Range Interpretation Comments SARS-COV2/RT-PCR (test code = Negative Not Detected, Negative [id number]) SARS-COV-2 PERFORMING LAB CPL (test code = 3071082) POCT-GLUCOSE [id number] 07:52:00 Test Item Value Reference Range Interpretation Comments POC-GLUCOSE METER 251 mg/dL 70-110 H : TESTED A T [facility] 6720 (BEAKER) (test code = [facility] [place], 1538) [id number]: Wire Steward/Techni sebastian ID = [id number] for LESLIE ERROLALEJANDRO MERIDA [id number] 04:17:00 Test Item Value Reference Range Interpretation Comments MAGNESIUM (BEAKER) 1.8 mg/dL 1.6-2.6 Specimen slightly (test code = 627) hemolyzed Wire Steward ID - MILAGRO [id number] 04:17:00 Test Item Value Reference Range Interpretation Comments PHOSPHORUS (BEAKER) 2.1 mg/dL 2.3-4.7 L Specimen slightly (test code = 604) hemolyzed Wire Steward ID - MILAGRO LBASIC METABOLIC [id number] 04:17:00 Test Item Value Reference Range Interpretation Comments SODIUM (BEAKER) 134 meq/L 136-145 L (test code = 381) POTASSIUM (BEAKER) 3.8 meq/L 3.5-5.1 Specimen slightly (test code = 379) hemolyzed CHLORIDE (BEAKER) 100 meq/L 98-107 (test code = 382) CO2 (BEAKER) (test 25 meq/L 22-29 code = 355) BLOOD UREA NITROGEN 9 mg/dL 7-21 (BEAKER) (test code = 354) CREATININE (BEAKER) 0.79 mg/dL 0.57-1.25 Specimen slightly (test code = 358) hemolyzed GLUCOSE RANDOM 225 mg/dL 70-105 H (BEAKER) (test code = 652) CALCIUM (BEAKER) 8.9 mg/dL 8.4-10.2 (test code = 697) EGFR (BEAKER) (test 102 mL/min/1.73 ESTIM ATED GFR IS code = 1092) sq m NOT ACCURATE CREATININE CLEARANCE IN PREDICTING GLOMERULAR FILTRATION RATE . ESTIMATED GFR I S NOT APPLICABLE FOR DIALYSIS PATIEN TS. Wire Steward ID - PIAYA LHEPATIC FUNCTION [id number] 04:17:00 Test Item Value Reference Range Interpretation Comments TOTAL PROTEIN (BEAKER) 6.4 gm/dL 6.0-8.3 Speci men slightly (test code = 770) hemolyzed ALBUMIN (BEAKER) (test 3.5 g/dL 3.5-5.0 Speci men slightly code = 1145) hemolyzed BILIRUBIN TOTAL 0.7 mg/dL 0.2-1.2 Specimen sli ghtly (BEAKER) (test code = hemoly zed 377) BILIRUBIN DIRECT 0.3 mg/dL 0.1-0.5 Specimen sl ightly (BEAKER) (test code = hemoly zed 706) ALKALINE PHOSPHATASE 76 U/L 40-150 (BEAKER) (test code = 346) AST (SGOT) (BEAKER) 18 U/L 5-34 Specimen slightly (test code = 353) hemolyzed ALT (SGPT) (BEAKER) 14 U/L 6-55 Specimen slightly (test code = 347) hemolyzed Wire Steward ID - MILAGRO CHRISTINASONON, TIBC, % SAT. (WITHOUT FERRITIN)2019-12-06 04:15:00 Test Item Value Reference Range Interpretation Comments IRON (BEAKER) (test code = 547) 102.0 ug/dL 40.0-160.0 TOTAL IRON BINDING CAPACITY 260 ug/dL 250-450 (BEAKER) (test code = 769) IRON % SATURATION (2) (BEAKER) 39 % 20-55 (test code = 2590) Wire Steward ID - MILAGRO LRETICULOCYTE [id number] 03:53:00 Test Item Value Reference Range Interpretation Comments RETICULOCYTE COUNT PCT (BEAKER) (test 0.9 % 0.5-1.8 code = 575) Wire Steward ID - [id number] W/PLT COUNT & AUTO [id number] 03:53:00 Test Item Value Reference Range Interpretation Comments WHITE BLOOD CELL COUNT (BEAKER) 7.8 K/ L 3.5-10.5 (test code = 775) RED BLOOD CELL COUNT (BEAKER) 4.09 M/ L 4.63-6.08 L (test code = 761) HEMOGLOBIN (BEAKER) (test code = 11.4 GM/DL 13.7-17.5 L 410) HEMATOCRIT (BEAKER) (test code = 34.3 % 40.1-51.0 L 411) MEAN CORPUSCULAR VOLUME (BEAKER) 83.9 fL 79.0-92.2 (test code = 753) MEAN CORPUSCULAR HEMOGLOBIN 27.9 pg 25.7-32.2 (BEAKER) (test code = 751) MEAN CORPUSCULAR HEMOGLOBIN CONC 33.2 GM/DL 32.3-36.5 (BEAKER) (test code = 752) RED CELL DISTRIBUTION WIDTH 13.6 % 11.6-14.4 (BEAKER) (test code = 412) PLATELET COUNT (BEAKER) (test 304 K/CU MM 150-450 code = 756) MEAN PLATELET VOLUME (BEAKER) 8.9 fL 9.4-12.4 L (test code = 754) NUCLEATED RED BLOOD CELLS 0 /100 WBC 0-0 (BEAKER) (test code = 413) NEUTROPHILS RELATIVE PERCENT 67 % (BEAKER) (test code = 429) LYMPHOCYTES RELATIVE PERCENT 21 % (BEAKER) (test code = 430) MONOCYTES RELATIVE PERCENT 10 % (BEAKER) (test code = 431) EOSINOPHILS RELATIVE PERCENT 1 % (BEAKER) (test code = 432) BASOPHILS RELATIVE PERCENT 0 % (BEAKER) (test code = 437) NEUTROPHILS ABSOLUTE COUNT 5.25 K/ L 1.78-5.38 (BEAKER) (test code = 670) LYMPHOCYTES ABSOLUTE COUNT 1.63 K/ L 1.32-3.57 (BEAKER) (test code = 414) MONOCYTES ABSOLUTE COUNT (BEAKER) 0.78 K/ L 0.30-0.82 (test code = 415) EOSINOPHILS ABSOLUTE COUNT 0.10 K/ L 0.04-0.54 (BEAKER) (test code = 416) BASOPHILS ABSOLUTE COUNT (BEAKER) 0.03 K/ L 0.01-0.08 (test code = 417) IMMATURE GRANULOCYTES-RELATIVE 0 % 0-1 PERCENT (BEAKER) (test code = 2801) [id number] 22:22:00 Test Item Value Reference Range Interpretation Comments PHOSPHORUS (BEAKER) (test code = 1.9 mg/dL 2.3-4.7 L 604) Wire Steward ID - [id number] 22:22:00 Test Item Value Reference Range Interpretation Comments MAGNESIUM (BEAKER) (test code = 1.8 mg/dL 1.6-2.6 627) Wire Steward ID - BSBASIC METABOLIC [id number] 22:22:00 Test Item Value Reference Range Interpretation Comments SODIUM (BEAKER) 133 meq/L 136-145 L (test code = 381) POTASSIUM (BEAKER) 4.0 meq/L 3.5-5.1 (test code = 379) CHLORIDE (BEAKER) 100 meq/L 98-107 (test code = 382) CO2 (BEAKER) (test 24 meq/L 22-29 code = 355) BLOOD UREA NITROGEN 8 mg/dL 7-21 (BEAKER) (test code = 354) CREATININE (BEAKER) 0.83 mg/dL 0.57-1.25 (test code = 358) GLUCOSE RANDOM 225 mg/dL 70-105 H (BEAKER) (test code = 652) CALCIUM (BEAKER) 8.6 mg/dL 8.4-10.2 (test code = 697) EGFR (BEAKER) (test 96 mL/min/1.73 ESTIMA TODD GFR IS code = 1092) sq m NOT ACCURATE CREATININE CLEARANCE IN PREDICTING GLOMERULAR FILTRATION RATE . ESTIMATED GFR I S NOT APPLICABLE FOR DIALYSIS PATIEN TS. Wire Steward ID - BSPOCT-GLUCOSE [id number] 20:47:00 Test Item Value Reference Range Interpretation Comments POC-GLUCOSE METER 215 mg/dL 70-110 H : TESTED A T [facility] 6720 (BEAKER) (test code = [facility] [place], 1538) [address]: Wire Steward/Techni sebastian ID = [id number] for MARLON RED MARITZA POCT-GLUCOSE [id number] 17:46:00 Test Item Value Reference Range Interpretation Comments POC-GLUCOSE METER 93 mg/dL 70-110 : TESTED A T [facility] 6720 (BEAKER) (test code = [facility] [place], 1538) [address]: Wire Steward/Techni sebastian ID = [id number] for Lidia miraBony POCT-GLUCOSE [id number] 15:06:00 Test Item Value Reference Range Interpretation Comments POC-GLUCOSE METER 106 mg/dL 70-110 : TESTED A T [facility] 6720 (BEAKER) (test code = [facility] [employer] [facility], 1538) [address]: Wire Steward/Techni sebastian ID = [id number] for soleBony [id number] 13:15:00 Test Item Value Reference Range Interpretation Comments POTASSIUM (BEAKER) (test code = 3.2 meq/L 3.5-5.1 L 379) Wire Steward ID - [id number] 13:15:00 Test Item Value Reference Range Interpretation Comments MAGNESIUM (BEAKER) (test code = 2.1 mg/dL 1.6-2.6 627) Wire Steward ID - [id number] 13:15:00 Test Item Value Reference Range Interpretation Comments PHOSPHORUS (BEAKER) (test code = 2.1 mg/dL 2.3-4.7 L 604) Wire Steward ID - [id number] 13:15:00 Test Item Value Reference Range Interpretation Comments GLUCOSE RANDOM (BEAKER) (test code = 84 mg/dL 70-105 652) Wire Steward ID - NTPBASIC METABOLIC [id number] 13:15:00 Test Item Value Reference Range Interpretation Comments SODIUM (BEAKER) 137 meq/L 136-145 (test code = 381) POTASSIUM (BEAKER) 3.2 meq/L 3.5-5.1 L (test code = 379) CHLORIDE (BEAKER) 102 meq/L 98-107 (test code = 382) CO2 (BEAKER) (test 26 meq/L 22-29 code = 355) BLOOD UREA NITROGEN 4 mg/dL 7-21 L (BEAKER) (test code = 354) CREATININE (BEAKER) 0.81 mg/dL 0.57-1.25 (test code = 358) GLUCOSE RANDOM 84 mg/dL 70-105 (BEAKER) (test code = 652) CALCIUM (BEAKER) 8.6 mg/dL 8.4-10.2 (test code = 697) EGFR (BEAKER) (test 99 mL/min/1.73 ESTIMA TODD GFR IS code = 1092) sq m NOT ACCURATE CREATININE CLEARANCE IN PREDICTING GLOMERULAR FILTRATION RATE . ESTIMATED GFR I S NOT APPLICABLE FOR DIALYSIS PATIEN TS. Wire Steward ID - NTPPOCT-GLUCOSE [id number] 12:29:00 Test Item Value Reference Range Interpretation Comments POC-GLUCOSE METER 99 mg/dL 70-110 : TESTED A T [facility] 6720 (BEAKER) (test code = [facility] [place], 1538) [address]: Wire Steward/Techni sebastian ID = [id number] for GARZ A, PATEL POCT-GLUCOSE [id number] 09:17:00 Test Item Value Reference Range Interpretation Comments POC-GLUCOSE METER 302 mg/dL 70-110 H : TESTED A T [facility] 6720 (BEAKER) (test code = [facility] [place], 1538) 15[address]: Wire Steward/Techni sebastian ID = [id number] for GA RZA, APTEL POCT-GLUCOSE [id number] 09:12:00 Test Item Value Reference Range Interpretation Comments POC-GLUCOSE METER 461 mg/dL 70-110 HH : Notified RN/MD: (BEAKER) (test code = TESTED AT [facility] 8543 7461) [facility], [address]: Wire Steward/Techni sebastian ID = [id number] for AD AMS, RAUL BASIC METABOLIC [id number] 06:59:00 Test Item Value Reference Range Interpretation Comments SODIUM (BEAKER) 131 meq/L 136-145 L (test code = 381) POTASSIUM (BEAKER) 4.3 meq/L 3.5-5.1 (test code = 379) CHLORIDE (BEAKER) 99 meq/L 98-107 (test code = 382) CO2 (BEAKER) (test 20 meq/L 22-29 L code = 355) BLOOD UREA NITROGEN 4 mg/dL 7-21 L (BEAKER) (test code = 354) CREATININE (BEAKER) 1.00 mg/dL 0.57-1.25 (test code = 358) GLUCOSE RANDOM 512 mg/dL 70-105 HH (BEAKER) (test code = 652) CALCIUM (BEAKER) 8.4 mg/dL 8.4-10.2 (test code = 697) EGFR (BEAKER) (test 78 mL/min/1.73 ESTIMA TODD GFR IS code = 1092) sq m NOT ACCURATE CREATININE CLEARANCE IN PREDICTING GLOMERULAR FILTRATION RATE . ESTIMATED GFR I S NOT APPLICABLE FOR DIALYSIS PATIEN TS. Wire Steward ID - [id number] 06:57:00 Test Item Value Reference Range Interpretation Comments PHOSPHORUS (BEAKER) (test code = 1.4 mg/dL 2.3-4.7 LL 604) Wire Steward ID - [id number] 06:06:00 Test Item Value Reference Range Interpretation Comments MAGNESIUM (BEAKER) (test code = 2.0 mg/dL 1.6-2.6 627) Wire Steward ID - MILAGRO LHEPATIC FUNCTION [id number] 06:06:00 Test Item Value Reference Range Interpretation Comments TOTAL PROTEIN (BEAKER) (test code = 6.3 gm/dL 6.0-8.3 770) ALBUMIN (BEAKER) (test code = 1145) 3.6 g/dL 3.5-5.0 BILIRUBIN TOTAL (BEAKER) (test code 0.5 mg/dL 0.2-1.2 = 377) BILIRUBIN DIRECT (BEAKER) (test 0.2 mg/dL 0.1-0.5 code = 706) ALKALINE PHOSPHATASE (BEAKER) (test 75 U/L 40-150 code = 346) AST (SGOT) (BEAKER) (test code = 14 U/L 5-34 353) ALT (SGPT) (BEAKER) (test code = 14 U/L 6-55 347) Wire Steward ID - MILAGRO LCBC W/PLT COUNT & AUTO [id number] 04:11:00 Test Item Value Reference Range Interpretation Comments WHITE BLOOD CELL COUNT (BEAKER) 9.8 K/ L 3.5-10.5 (test code = 775) RED BLOOD CELL COUNT (BEAKER) 4.02 M/ L 4.63-6.08 L (test code = 761) HEMOGLOBIN (BEAKER) (test code = 11.6 GM/DL 13.7-17.5 L 410) HEMATOCRIT (BEAKER) (test code = 35.2 % 40.1-51.0 L 411) MEAN CORPUSCULAR VOLUME (BEAKER) 87.6 fL 79.0-92.2 (test code = 753) MEAN CORPUSCULAR HEMOGLOBIN 28.9 pg 25.7-32.2 (BEAKER) (test code = 751) MEAN CORPUSCULAR HEMOGLOBIN CONC 33.0 GM/DL 32.3-36.5 (BEAKER) (test code = 752) RED CELL DISTRIBUTION WIDTH 13.9 % 11.6-14.4 (BEAKER) (test code = 412) PLATELET COUNT (BEAKER) (test 302 K/CU MM 150-450 code = 756) MEAN PLATELET VOLUME (BEAKER) 9.2 fL 9.4-12.4 L (test code = 754) NUCLEATED RED BLOOD CELLS 0 /100 WBC 0-0 (BEAKER) (test code = 413) NEUTROPHILS RELATIVE PERCENT 78 % (BEAKER) (test code = 429) LYMPHOCYTES RELATIVE PERCENT 13 % (BEAKER) (test code = 430) MONOCYTES RELATIVE PERCENT 9 % (BEAKER) (test code = 431) EOSINOPHILS RELATIVE PERCENT 0 % (BEAKER) (test code = 432) BASOPHILS RELATIVE PERCENT 0 % (BEAKER) (test code = 437) NEUTROPHILS ABSOLUTE COUNT 7.63 K/ L 1.78-5.38 H (BEAKER) (test code = 670) LYMPHOCYTES ABSOLUTE COUNT 1.28 K/ L 1.32-3.57 L (BEAKER) (test code = 414) MONOCYTES ABSOLUTE COUNT (BEAKER) 0.83 K/ L 0.30-0.82 H (test code = 415) EOSINOPHILS ABSOLUTE COUNT 0.03 K/ L 0.04-0.54 L (BEAKER) (test code = 416) BASOPHILS ABSOLUTE COUNT (BEAKER) 0.02 K/ L 0.01-0.08 (test code = 417) IMMATURE GRANULOCYTES-RELATIVE 0 % 0-1 PERCENT (BEAKER) (test code = 2801) POCT-GLUCOSE [id number] 22:25:00 Test Item Value Reference Range Interpretation Comments POC-GLUCOSE METER 151 mg/dL 70-110 H : TESTED A T [facility] 6720 (BEAKER) (test code = [place], 1538) [address]: Wire Steward/Techni sebastian ID = [id number] for AD AMS, RAUL [id number] 21:59:00 Test Item Value Reference Range Interpretation Comments MAGNESIUM (BEAKER) 2.0 mg/dL 1.6-2.6 Specimen slightly (test code = 627) hemolyzed Wire Steward ID - [id number] 21:59:00 Test Item Value Reference Range Interpretation Comments PHOSPHORUS (BEAKER) 1.7 mg/dL 2.3-4.7 L Specimen slightly (test code = 604) hemolyzed Wire Steward ID - BSBASIC METABOLIC [id number] 21:59:00 Test Item Value Reference Range Interpretation Comments SODIUM (BEAKER) 136 meq/L 136-145 (test code = 381) POTASSIUM (BEAKER) 3.5 meq/L 3.5-5.1 Specimen slightly (test code = 379) hemolyzed CHLORIDE (BEAKER) 106 meq/L 98-107 (test code = 382) CO2 (BEAKER) (test 22 meq/L 22-29 code = 355) BLOOD UREA NITROGEN 5 mg/dL 7-21 L (BEAKER) (test code = 354) CREATININE (BEAKER) 0.88 mg/dL 0.57-1.25 Specimen slightly (test code = 358) hemolyzed GLUCOSE RANDOM 154 mg/dL 70-105 H (BEAKER) (test code = 652) CALCIUM (BEAKER) 8.1 mg/dL 8.4-10.2 L (test code = 697) EGFR (BEAKER) (test 90 mL/min/1.73 ESTIMA TODD GFR IS code = 1092) sq m NOT ACCURATE CREATININE CLEARANCE IN PREDICTING GLOMERULAR FILTRATION RATE . ESTIMATED GFR I S NOT APPLICABLE FOR DIALYSIS PATIEN TS. Wire Steward ID - BSPOCT-GLUCOSE [id number] 18:08:00 Test Item Value Reference Range Interpretation Comments POC-GLUCOSE METER 191 mg/dL 70-110 H : TESTED A T [facility] 6720 (Gymbox) (test code = [facility] [place], 153) [address]: Wire Steward/Techni sebastian ID = [id number] for Mo woody, Conrado POCT-GLUCOSE [id number] 17:22:00 Test Item Value Reference Range Interpretation Comments POC-GLUCOSE METER 229 mg/dL 70-110 H : TESTED A T [facility] 6720 ([employer]) (test code = [facility] [place], 153) [address]: Wire Steward/Techni sebastian ID = [id number] for Mo woody, Conrado POCT-GLUCOSE [id number] 16:35:00 Test Item Value Reference Range Interpretation Comments POC-GLUCOSE METER 249 mg/dL 70-110 H : TESTED A T [facility] 6720 (G[employer]) (test code = [facility] [place], 153) [address]: Wire Steward/Techni sebastian ID = [id number] for SE RAMIREZ MARISOL POCT-GLUCOSE [id number] 15:20:00 Test Item Value Reference Range Interpretation Comments POC-GLUCOSE METER 252 mg/dL 70-110 H : TESTED A T [facility] 6720 ([employer]) (test code = [facility] [place], 1538) [address]: Wire Steward/Techni sebastian ID = [id number] for NG NOEL, ClaytonY POCT-GLUCOSE [id number] 14:21:00 Test Item Value Reference Range Interpretation Comments POC-GLUCOSE METER 257 mg/dL 70-110 H : TESTED A T [facility] 6720 (BEAKER) (test code = [facility] [place], 1538) [address]: Wire Steward/Techni sebastian ID = [id number] for MARISOL JANSEN POCT-GLUCOSE [id number] 13:16:00 Test Item Value Reference Range Interpretation Comments POC-GLUCOSE METER 250 mg/dL 70-110 H : TESTED A T [facility] 6720 (BEAKER) (test code = [facility], 1538) [address]: Wire Steward/Techni sebastian ID = [id number] for Conrado Conti [id number] 12:55:00 Test Item Value Reference Range Interpretation Comments PHOSPHORUS (BEAKER) (test code = 2.0 mg/dL 2.3-4.7 L 604) Wire Steward ID - [id number] 12:55:00 Test Item Value Reference Range Interpretation Comments MAGNESIUM (BEAKER) (test code = 2.3 mg/dL 1.6-2.6 627) Wire Steward ID - ADMINBASIC METABOLIC [id number] 12:55:00 Test Item Value Reference Range Interpretation Comments SODIUM (BEAKER) 134 meq/L 136-145 L (test code = 381) POTASSIUM (BEAKER) 4.0 meq/L 3.5-5.1 (test code = 379) CHLORIDE (BEAKER) 106 meq/L 98-107 (test code = 382) CO2 (BEAKER) (test 17 meq/L 22-29 L code = 355) BLOOD UREA NITROGEN 8 mg/dL 7-21 (BEAKER) (test code = 354) CREATININE (BEAKER) 1.13 mg/dL 0.57-1.25 (test code = 358) GLUCOSE RANDOM 252 mg/dL 70-105 H (BEAKER) (test code = 652) CALCIUM (BEAKER) 8.2 mg/dL 8.4-10.2 L (test code = 697) EGFR (BEAKER) (test 67 mL/min/1.73 ESTIMA TODD GFR IS code = 1092) sq m NOT ACCURATE CREATININE CLEARANCE IN PREDICTING GLOMERULAR FILTRATION RATE . ESTIMATED GFR I S NOT APPLICABLE FOR DIALYSIS PATIEN TS. Wire Steward ID - ADMINPOCT-GLUCOSE [id number] 12:31:00 Test Item Value Reference Range Interpretation Comments POC-GLUCOSE METER 142 mg/dL 70-110 H : TESTED A T [facility] 6720 (BEAKER) (test code = [facility] [place], 1538) [address]71: Wire Steward/Techni sebastian ID = [id number] for Mo woody, Conrado POCT-GLUCOSE [id number] 11:12:00 Test Item Value Reference Range Interpretation Comments POC-GLUCOSE METER 160 mg/dL 70-110 H : TESTED A T [facility] 6720 (BEAKER) (test code = [facility] [place], 1538) [address]47: Wire Steward/Techni sebastian ID = [id number] for Mo woody, Conrado POCT-GLUCOSE [id number] 10:43:00 Test Item Value Reference Range Interpretation Comments POC-GLUCOSE METER 124 mg/dL 70-110 H : TESTED A T [facility] 6720 (BEAKER) (test code = [facility] [place], [facility]8) [address]: Wire Steward/Techni sebastian ID = [id number] for NG NOEL, VY POCT-GLUCOSE [id number] 10:14:00 Test Item Value Reference Range Interpretation Comments POC-GLUCOSE METER 85 mg/dL 70-110 : TESTED A T [facility] 6720 (BEAKER) (test code = [facility] [place], 1538) [address]: Wire Steward/Techni sebastian ID = [id number] for NGUY EN, VY POCT-GLUCOSE [id number] 10:00:00 Test Item Value Reference Range Interpretation Comments POC-GLUCOSE METER 79 mg/dL 70-110 : TESTED A T [facility] 6720 (BEAKER) (test code = [facility] [place], [facility]) [address]: Wire Steward/Techni sebastian ID = [id number] for More no, Conrado POCT-GLUCOSE [id number] 09:59:00 Test Item Value Reference Range Interpretation Comments POC-GLUCOSE METER 73 mg/dL 70-110 : TESTED A T [facility] 6720 (BEAKER) (test code = [facility] [place], 1538) [address]: Wire Steward/Techni sebastian ID = [id number] for NGUY EN, VY POCT-GLUCOSE [id number] 09:58:00 Test Item Value Reference Range Interpretation Comments POC-GLUCOSE METER 113 mg/dL 70-110 H : TESTED A T [facility] 6720 (BEAKER) (test code = [facility] [place], 1538) 39[address]: Wire Steward/Techni sebastian ID = [id number] for MARISOL JANSEN POCT-GLUCOSE [id number] 09:56:00 Test Item Value Reference Range Interpretation Comments POC-GLUCOSE METER 157 mg/dL 70-110 H : Notified RN/MD: Pt. (CAROL) (test code = on IV insulin: TESTED 153) AT [address], [address]: Wire Steward/Techni sebastian ID = [id number] for SA FFORD, CHANAE POCT-GLUCOSE [id number] 09:55:00 Test Item Value Reference Range Interpretation Comments POC-GLUCOSE METER 189 mg/dL 70-110 H : Notified RN/MD: Pt. (CAROL) (test code = on IV insulin: TESTED 153) AT [address], [address]: Wire Steward/Techni sebastian ID = [id number] for SA FFORD, CHANAE POCT-GLUCOSE [id number] 09:53:00 Test Item Value Reference Range Interpretation Comments POC-GLUCOSE METER 201 mg/dL 70-110 H : Notified RN/MD: Pt. (CAROL) (test code = on IV insulin: TESTED 153) AT [address], [address]: Wire Steward/Techni sebastian ID = [id number] for SA FFORD, CHANAE POCT-GLUCOSE [id number] 09:53:00 Test Item Value Reference Range Interpretation Comments POC-GLUCOSE METER 202 mg/dL 70-110 H : Notified RN/MD: Pt. (CAROL) (test code = on IV insulin: TESTED 153) AT [address], [address]: Wire Steward/Techni sebastian ID = [id number] for SA FFORD, CHANAE POCT-GLUCOSE [id number] 09:52:00 Test Item Value Reference Range Interpretation Comments POC-GLUCOSE METER 214 mg/dL 70-110 H : Notified RN/MD: (CAROL) (test code = TESTED AT [place] [address] 1538) [facility], [address]: Wire Steward/Techni sebastian ID = [id number] for SA FFORD, CHANAE POCT-GLUCOSE [id number] 09:52:00 Test Item Value Reference Range Interpretation Comments POC-GLUCOSE METER 187 mg/dL 70-110 H : Notified RN/MD: (CAROL) (test code = TESTED AT [place] [address]) [facility], [address]: Wire Steward/Techni sebastian ID = [id number] for SA FFORD, CHANAE POCT-GLUCOSE [id number] 09:52:00 Test Item Value Reference Range Interpretation Comments POC-GLUCOSE METER 176 mg/dL 70-110 H : Notified RN/MD: (CAROL) (test code = TESTED AT [place] [address]) [facility], [address]: Wire Steward/Techni sebastian ID = [id number] for SA FFORD, CHANAE POCT-GLUCOSE [id number] 09:51:00 Test Item Value Reference Range Interpretation Comments POC-GLUCOSE METER 151 mg/dL 70-110 H : Notified RN/MD: (CAROL) (test code = TESTED AT [place] [address]) [facility], [address]: Wire Steward/Techni sebastian ID = [id number] for SA FFORD, CHANAE POCT-GLUCOSE [id number] 09:50:00 Test Item Value Reference Range Interpretation Comments POC-GLUCOSE METER 138 mg/dL 70-110 H : Notified RN/MD: (CAROL) (test code = TESTED AT [place] [address]) [facility], [address]: Wire Steward/Techni sebastian ID = [id number] for SA FFORD, CHANAE POCT-GLUCOSE [id number] 09:49:00 Test Item Value Reference Range Interpretation Comments POC-GLUCOSE METER 152 mg/dL 70-110 H : Notified RN/MD: (CAROL) (test code = TESTED AT [place] [address]) [facility], [address]: Wire Steward/Techni sebastian ID = [id number] for SA FFORD, CHANAE POCT-GLUCOSE [id number] 09:47:00 Test Item Value Reference Range Interpretation Comments POC-GLUCOSE METER 193 mg/dL 70-110 H : Notified RN/MD: (CAROL) (test code = TESTED AT [place] [address]) [facility], [address]: Wire Steward/Techni sebastian ID = [id number] for SA FFORD, CHANAE POCT-GLUCOSE [id number] 09:45:00 Test Item Value Reference Range Interpretation Comments POC-GLUCOSE METER 209 mg/dL 70-110 H : Notified RN/MD: (CAROL) (test code = TESTED AT [place] [address]38) [facility], [address]: Wire Steward/Techni sebastian ID = [id number] for OLLIE NUÑEZ POCT-GLUCOSE [id number] 09:45:00 Test Item Value Reference Range Interpretation Comments POC-GLUCOSE METER 261 mg/dL 70-110 H : TESTED A T [place] [address] ([facility]) (test code = [facility] [place], 153) [address]: Wire Steward/Techni sebastian ID = [id number] for MARISOL JANSEN POCT-GLUCOSE [id number] 09:44:00 Test Item Value Reference Range Interpretation Comments POC-GLUCOSE METER 279 mg/dL 70-110 H : Notified RN/MD: (CAROL) (test code = TESTED AT [place] [address]) [facility], [address]: Wire Steward/Techni sebastian ID = [id number] for LL OYD, TIKEYA POCT-GLUCOSE [id number] 09:42:00 Test Item Value Reference Range Interpretation Comments POC-GLUCOSE METER 277 mg/dL 70-110 H : Notified RN/MD: (CAROL) (test code = TESTED AT [place] [address]) [facility], [address]: Wire Steward/Techni sebastian ID = [id number] for LL OYD, TIKEYA POCT-GLUCOSE [id number] 09:40:00 Test Item Value Reference Range Interpretation Comments POC-GLUCOSE METER 331 mg/dL 70-110 H : TESTED A T [place] [id number] ([facility]) (test code = [facility] [place], [address]) [address]: Wire Steward/Techni sebastian ID = [id number] for Mo woody, Conrado POCT-GLUCOSE [id number] 09:39:00 Test Item Value Reference Range Interpretation Comments POC-GLUCOSE METER 342 mg/dL 70-110 H : Notified RN/MD: (CAROL) (test code = TESTED AT [place] [address]) [facility], [address]: Wire Steward/Techni sebastian ID = [id number] for LL OYD, TIKEYA POCT-GLUCOSE [id number] 09:36:00 Test Item Value Reference Range Interpretation Comments POC-GLUCOSE METER 260 mg/dL 70-110 H : Notified RN/MD: (BEMILAGRO) (test code = TESTED AT [facility] [id number] [id number]) [facility], [address]: Wire Steward/Techni sebastian ID = [id number] for MILENA CORDON CBC W/PLT COUNT & AUTO [id number] 07:07:00 Test Item Value Reference Range Interpretation Comments WHITE BLOOD CELL COUNT (BEAKER) 19.8 K/ L 3.5-10.5 H (test code = 775) RED BLOOD CELL COUNT (BEAKER) 3.75 M/ L 4.63-6.08 L (test code = 761) HEMOGLOBIN (BEAKER) (test code = 10.6 GM/DL 13.7-17.5 L 410) HEMATOCRIT (BEAKER) (test code = 33.1 % 40.1-51.0 L 411) MEAN CORPUSCULAR VOLUME (BEAKER) 88.3 fL 79.0-92.2 (test code = 753) MEAN CORPUSCULAR HEMOGLOBIN 28.3 pg 25.7-32.2 (BEAKER) (test code = 751) MEAN CORPUSCULAR HEMOGLOBIN CONC 32.0 GM/DL 32.3-36.5 L (BEAKER) (test code = 752) RED CELL DISTRIBUTION WIDTH 13.6 % 11.6-14.4 (BEAKER) (test code = 412) PLATELET COUNT (BEAKER) (test 327 K/CU MM 150-450 code = 756) MEAN PLATELET VOLUME (BEAKER) 8.8 fL 9.4-12.4 L (test code = 754) NUCLEATED RED BLOOD CELLS 0 /100 WBC 0-0 (BEAKER) (test code = 413) (CELLAVISION MANUAL DIFF)2019-12-04 07:07:00 Test Item Value Reference Range Interpretation Comments NEUTROPHILS - REL 90 % (CELLAVISION)(BEAKER) (test code = 2816) LYMPHOCYTES - REL 4 % (CELLAVISION)(BEAKER) (test code = 2817) MONOCYTES - REL 6 % (CELLAVISION)(BEAKER) (test code = 2818) NEUTROPHILS - ABS 17.82 K/ul 1.78-5.38 H (CELLAVISION)(BEAKER) (test code = 2830) LYMPHOCYTES - ABS 0.79 K/ul 1.32-3.57 L (CELLAVISION)(BEAKER) (test code = 2831) MONOCYTES - ABS 1.19 K/uL 0.30-0.82 H (CELLAVISION)(BEAKER) (test code = 2832) TOTAL COUNTED (BEAKER) (test code 100 = 1351) WBC MORPHOLOGY (BEAKER) (test Normal code = 487) PLT MORPHOLOGY (BEAKER) (test Normal code = 486) POLYCHROMATOPHILLIC RBCS(BEAKER) 1+ few (test code = 478) COURTNEY CELLS (BEAKER) (test code = 2+ moderate 474) ARTIFACT (CELLAVISION)(BEAKER) Present (test code = 3432) PLATELET CONCENTRATION Adequate (CELLAVISION)(BEAKER) (test code = 3438) Wire Steward ID - Nayeli Marqeuz comments: Slide comments:BLOOD GAS, [id number] 03:50:00 Test Item Value Reference Range Interpretation Comments PH VENOUS (BEAKER) (test code = 7.29 7.32-7.42 L 701) PCO2 VENOUS (BEAKER) (test code = 36 mmHg 41-51 L 755) PO2 VENOUS (BEAKER) (test code = 40 mmHg 25-40 702) O2 SATURATION VENOUS (BEAKER) 70.1 % 40.0-70.0 H (test code = 703) HCO3 VENOUS (BEAKER) (test code = 17 mmol/L 21-29 L 705) BASE EXCESS VENOUS (BEAKER) (test -8.8 mmol/L -2.0-3.0 L code = 704) PATIENT TEMPERATURE (BEAKER) 37.0 C (test code = 1818) FIO2 (BEAKER) (test code = 1819) 21.0 % [id number] 03:48:00 Test Item Value Reference Range Interpretation Comments PHOSPHORUS (BEAKER) (test code = 2.0 mg/dL 2.3-4.7 L 604) Wire Steward ID - ALFONZO [id number] 03:48:00 Test Item Value Reference Range Interpretation Comments MAGNESIUM (BEAKER) (test code = 1.7 mg/dL 1.6-2.6 627) Wire Steward ID - ALFONZO MBASIC METABOLIC [id number] 03:48:00 Test Item Value Reference Range Interpretation Comments SODIUM (BEAKER) 136 meq/L 136-145 (test code = 381) POTASSIUM (BEAKER) 4.0 meq/L 3.5-5.1 (test code = 379) CHLORIDE (BEAKER) 111 meq/L 98-107 H (test code = 382) CO2 (BEAKER) (test 17 meq/L 22-29 L code = 355) BLOOD UREA NITROGEN 14 mg/dL 7-21 (BEAKER) (test code = 354) CREATININE (BEAKER) 1.22 mg/dL 0.57-1.25 (test code = 358) GLUCOSE RANDOM 229 mg/dL 70-105 H (BEAKER) (test code = 652) CALCIUM (BEAKER) 8.0 mg/dL 8.4-10.2 L (test code = 697) EGFR (BEAKER) (test 62 mL/min/1.73 ESTIMA TODD GFR IS code = 1092) sq m NOT ACCURATE CREATININE CLEARANCE IN PREDICTING GLOMERULAR FILTRATION RATE . ESTIMATED GFR I S NOT APPLICABLE FOR DIALYSIS PATIEN TS. Wire Steward ID - ALFONZO MHEPATIC FUNCTION [id number] 03:48:00 Test Item Value Reference Range Interpretation Comments TOTAL PROTEIN (BEAKER) (test code = 5.9 gm/dL 6.0-8.3 L 770) ALBUMIN (BEAKER) (test code = 1145) 3.6 g/dL 3.5-5.0 BILIRUBIN TOTAL (BEAKER) (test code 0.4 mg/dL 0.2-1.2 = 377) BILIRUBIN DIRECT (BEAKER) (test 0.2 mg/dL 0.1-0.5 code = 706) ALKALINE PHOSPHATASE (BEAKER) (test 67 U/L 40-150 code = 346) AST (SGOT) (BEAKER) (test code = 15 U/L 5-34 353) ALT (SGPT) (BEAKER) (test code = 17 U/L 6-55 347) Wire Steward ID - ALFONZO [id number] 00:46:00 Test Item Value Reference Range Interpretation Comments MAGNESIUM (BEAKER) 1.9 mg/dL 1.6-2.6 Specimen slightly (test code = 627) hemolyzed Wire Steward ID - DBBASIC METABOLIC [id number] 00:46:00 Test Item Value Reference Range Interpretation Comments SODIUM (BEAKER) 135 meq/L 136-145 L (test code = 381) POTASSIUM (BEAKER) 3.9 meq/L 3.5-5.1 Specimen slightly (test code = 379) hemolyzed CHLORIDE (BEAKER) 110 meq/L 98-107 H (test code = 382) CO2 (BEAKER) (test 15 meq/L 22-29 L code = 355) BLOOD UREA NITROGEN 16 mg/dL 7-21 (BEAKER) (test code = 354) CREATININE (BEAKER) 1.27 mg/dL 0.57-1.25 H Specimen slightly (test code = 358) hemolyzed GLUCOSE RANDOM 136 mg/dL 70-105 H (BEAKER) (test code = 652) CALCIUM (BEAKER) 8.4 mg/dL 8.4-10.2 (test code = 697) EGFR (BEAKER) (test 59 mL/min/1.73 ESTIMA TODD GFR IS code = 1092) sq m NOT ACCURATE CREATININE CLEARANCE IN PREDICTING GLOMERULAR FILTRATION RATE . ESTIMATED GFR I S NOT APPLICABLE FOR DIALYSIS PATIEN TS. Wire Steward ID - [id number] 20:39:00 Test Item Value Reference Range Interpretation Comments MAGNESIUM (BEAKER) (test code = 1.9 mg/dL 1.6-2.6 627) Wire Steward ID - NTPBASIC METABOLIC [id number] 20:39:00 Test Item Value Reference Range Interpretation Comments SODIUM (BEAKER) 136 meq/L 136-145 (test code = 381) POTASSIUM (BEAKER) 4.0 meq/L 3.5-5.1 (test code = 379) CHLORIDE (BEAKER) 111 meq/L 98-107 H (test code = 382) CO2 (BEAKER) (test 17 meq/L 22-29 L code = 355) BLOOD UREA NITROGEN 17 mg/dL 7-21 (BEAKER) (test code = 354) CREATININE (BEAKER) 1.34 mg/dL 0.57-1.25 H (test code = 358) GLUCOSE RANDOM 214 mg/dL 70-105 H (BEAKER) (test code = 652) CALCIUM (BEAKER) 8.3 mg/dL 8.4-10.2 L (test code = 697) EGFR (BEAKER) (test 55 mL/min/1.73 ESTIMA TODD GFR IS code = 1092) sq m NOT ACCURATE CREATININE CLEARANCE IN PREDICTING GLOMERULAR FILTRATION RATE . ESTIMATED GFR I S NOT APPLICABLE FOR DIALYSIS PATIEN TS. Wire Steward ID - NTPBLOOD GAS, [id number] 20:19:00 Test Item Value Reference Range Interpretation Comments PH VENOUS (BEAKER) (test code = 7.30 7.32-7.42 L 701) PCO2 VENOUS (BEAKER) (test code = 35 mmHg 41-51 L 755) PO2 VENOUS (BEAKER) (test code = 30 mmHg 25-40 702) O2 SATURATION VENOUS (BEAKER) 52.5 % 40.0-70.0 (test code = 703) HCO3 VENOUS (BEAKER) (test code = 17 mmol/L 21-29 L 705) BASE EXCESS VENOUS (BEAKER) (test -8.5 mmol/L -2.0-3.0 L code = 704) PATIENT TEMPERATURE (BEAKER) 37.0 C (test code = 1818) BASIC METABOLIC [id number] 17:09:00 Test Item Value Reference Range Interpretation Comments SODIUM (BEAKER) 135 meq/L 136-145 L (test code = 381) POTASSIUM (BEAKER) 4.7 meq/L 3.5-5.1 (test code = 379) CHLORIDE (BEAKER) 110 meq/L 98-107 H (test code = 382) CO2 (BEAKER) (test 8 meq/L 22-29 LL code = 355) BLOOD UREA NITROGEN 18 mg/dL 7-21 (BEAKER) (test code = 354) CREATININE (BEAKER) 1.16 mg/dL 0.57-1.25 (test code = 358) GLUCOSE RANDOM 342 mg/dL 70-105 H (BEAKER) (test code = 652) CALCIUM (BEAKER) 8.4 mg/dL 8.4-10.2 (test code = 697) EGFR (BEAKER) (test 65 mL/min/1.73 ESTIMA TODD GFR IS code = 1092) sq m NOT ACCURATE CREATININE CLEARANCE IN PREDICTING GLOMERULAR FILTRATION RATE . ESTIMATED GFR I S NOT APPLICABLE FOR DIALYSIS PATIEN TS. Wire Steward ID - [id number] 17:02:00 Test Item Value Reference Range Interpretation Comments PHOSPHORUS (BEAKER) (test code = 2.5 mg/dL 2.3-4.7 604) Wire Steward ID - [id number] 17:02:00 Test Item Value Reference Range Interpretation Comments MAGNESIUM (BEAKER) (test code = 2.0 mg/dL 1.6-2.6 627) Wire Steward ID - NTPBLOOD GAS, [id number] 16:46:00 Test Item Value Reference Range Interpretation Comments PH VENOUS (BEAKER) (test code = 7.14 7.32-7.42 LL 701) PCO2 VENOUS (BEAKER) (test code 25 mmHg 41-51 L = 755) PO2 VENOUS (BEAKER) (test code = 54 mmHg 25-40 H 702) O2 SATURATION VENOUS (BEAKER) 78.8 % 40.0-70.0 H (test code = 703) HCO3 VENOUS (BEAKER) (test code 8 mmol/L 21-29 LL = 705) BASE EXCESS VENOUS (BEAKER) -19.0 mmol/L -2.0-3.0 L (test code = 704) PATIENT TEMPERATURE (BEAKER) 37.0 C (test code = 1818) HEMOGLOBIN [id number] 14:14:00 Test Item Value Reference Range Interpretation Comments HEMOGLOBIN A1C (BEAKER) (test code = 8.3 % 4.3-6.1 H 368) Wire Steward ID - [id number] 13:53:00 Test Item Value Reference Range Interpretation Comments PROCALCITONIN (BEAKER) (test code 1.18 ng/mL <0.05 H = 3036) SEPSIS RISK (ng/mL)Low: 0.05-0.50Intermediate: 0.51-2.00High: >=2.01BASIC METABOLIC [id number] 13:52:00 Test Item Value Reference Range Interpretation Comments SODIUM (BEAKER) 135 meq/L 136-145 L (test code = 381) POTASSIUM (BEAKER) 5.8 meq/L 3.5-5.1 H (test code = 379) CHLORIDE (BEAKER) 110 meq/L 98-107 H (test code = 382) CO2 (BEAKER) (test 7 meq/L 22-29 LL code = 355) BLOOD UREA NITROGEN 20 mg/dL 7-21 (BEAKER) (test code = 354) CREATININE (BEAKER) 1.48 mg/dL 0.57-1.25 H (test code = 358) GLUCOSE RANDOM 347 mg/dL 70-105 H (BEAKER) (test code = 652) CALCIUM (BEAKER) 8.5 mg/dL 8.4-10.2 (test code = 697) EGFR (BEAKER) (test 49 mL/min/1.73 ESTIMA TODD GFR IS code = 1092) sq m NOT ACCURATE CREATININE CLEARANCE IN PREDICTING GLOMERULAR FILTRATION RATE . ESTIMATED GFR I S NOT APPLICABLE FOR DIALYSIS PATIEN TS. Wire Steward ID - NTPTROPONIN [id number] 13:51:00 Test Item Value Reference Range Interpretation Comments TROPONIN I (BEAKER) (test code = 0.01 ng/mL 0.00-0.03 397) Troponin I (TnI) levels must be interpreted in the context of the presenting symptoms and the clinical findings. Elevated TnI levels indicate myocardial damage, but are not specific for ischemic heart disease. Elevated TnI levels are seen in patients with other cardiac conditions (including myocarditis and congestive heart failure), and slight TnI elevations occur in patients with other conditions, including sepsis, renal failure, acidosis, acute neurological disease, and persistent tachyarrhythmia.Wire Steward ID - NTPRAPID DRUG SCREEN, [id number] 13:50:00 Test Item Value Reference Range Interpretation Comments BARBITURATE URINE (BEAKER) (test Negative Negative code = 725) BENZODIAZEPINE SCREEN URINE (BEAKER) Negative Negative (test code = 726) COCAINE (METAB.) SCREEN (BEAKER) Positive Negative A (test code = 1164) METHADONE SCREEN (BEAKER) (test code Negative Negative = 1436) OPIATE SCREEN URINE (BEAKER) (test Negative Negative code = 734) CANNABINOID SCREEN URINE (BEAKER) Negative Negative (test code = 727) AMPH/METHAMPH SCREEN (BEAKER) (test Negative Negative code = 1438) PHENCYCLIDINE SCREEN URINE (BEAKER) Negative Negative (test code = 608) PH UA (BEAKER) (test code = 467) 5.5 5.0-8.0 DRUG CUTOFF CONC.Cocaine 300 ng/mL Cannabinoid 50 ng/mLBenzodiazepine 200 ng/mLBarbiturate 200 ng/mLPhencyclidine 25 ng/mLOpiate 300 ng/mLMethadone 300 ng/mLAmphetamine/ 1000 ng/mL MethamphetamineThis assay provides an unconfirmed qualitative test result for the clinical management of patients in emergency situations. Chain of custody not maintained. Some izku-rts-rhirwwk medications, as well as adulterants, may cause inaccurate results. Clinical correlation should be applied. A more comprehensive drug screen or confirmation of a detected drug may be performed upon request.Wire Steward ID - NTPCREATININE, RANDOM [id number] 13:46:00 Test Item Value Reference Range Interpretation Comments CREATININE URINE (BEAKER) (test 21.4 mg/dL code = 375) Reference Range: No NormalsOperator ID - NTPSODIUM, RANDOM [id number] 13:46:00 Test Item Value Reference Range Interpretation Comments SODIUM URINE (BEAKER) (test code = 116 meq/L 243) Reference Range: No NormalsOperator ID - NTPUREA NITROGEN, RANDOM URINE 2019-12-03 13:46:00 Test Item Value Reference Range Interpretation Comments UREA NITROGEN URINE (BEAKER) (test 268 mg/dL code = 538) Reference Range: No NormalsOperator ID - [id number] 13:44:00 Test Item Value Reference Range Interpretation Comments PHOSPHORUS (BEAKER) (test code = 3.5 mg/dL 2.3-4.7 604) Wire Steward ID - [id number] 13:44:00 Test Item Value Reference Range Interpretation Comments MAGNESIUM (BEAKER) (test code = 2.1 mg/dL 1.6-2.6 627) Wire Steward ID - NTPHEPATIC FUNCTION [id number] 13:44:00 Test Item Value Reference Range Interpretation Comments TOTAL PROTEIN (BEAKER) (test code = 6.9 gm/dL 6.0-8.3 770) ALBUMIN (BEAKER) (test code = 1145) 4.0 g/dL 3.5-5.0 BILIRUBIN TOTAL (BEAKER) (test code 0.2 mg/dL 0.2-1.2 = 377) BILIRUBIN DIRECT (BEAKER) (test 0.2 mg/dL 0.1-0.5 code = 706) ALKALINE PHOSPHATASE (BEAKER) (test 89 U/L 40-150 code = 346) AST (SGOT) (BEAKER) (test code = 16 U/L 5-34 353) ALT (SGPT) (BEAKER) (test code = 18 U/L 6-55 347) Wire Steward ID - [id number] 13:44:00 Test Item Value Reference Range Interpretation Comments AMYLASE (BEAKER) (test code = 349) 28 U/L 25-125 Wire Steward ID - [id number] 13:44:00 Test Item Value Reference Range Interpretation Comments LIPASE (BEAKER) (test code = 749) 15 U/L 8-78 Wire Steward ID - NTPLACTIC ACID, [id number] 13:31:00 Test Item Value Reference Range Interpretation Comments LACTATE BLOOD VENOUS (2) (BEAKER) 0.98 mmol/L 0.50-2.20 (test code = 2872) Wire Steward ID - NTPURINALYSIS W/ REFLEX URINE [id number] 13:29:00 Test Item Value Reference Range Interpretation Comments COLOR (BEAKER) (test code = 470) Colorless CLARITY (BEAKER) (test code = Clear 469) SPECIFIC GRAVITY UA (BEAKER) 1.020 1.001-1.035 (test code = 468) PH UA (BEAKER) (test code = 467) 5.5 5.0-8.0 PROTEIN UA (BEAKER) (test code = 20 mg/dL Negative A 464) GLUCOSE UA (BEAKER) (test code = >1000 mg/dL Negative A 365) KETONES UA (BEAKER) (test code = >150 mg/dL Negative A 371) BILIRUBIN UA (BEAKER) (test code Negative Negative = 462) BLOOD UA (BEAKER) (test code = Negative Negative 461) NITRITE UA (BEAKER) (test code = Negative Negative 465) LEUKOCYTE ESTERASE UA (BEAKER) Negative Negative (test code = 466) UROBILINOGEN UA (BEAKER) (test 0.2 mg/dL 0.2-1.0 code = 463) RBC UA (BEAKER) (test code = 519) 0 /HPF WBC UA (BEAKER) (test code = 520) < /HPF SOURCE(BEAKER) (test code = 9725) Wire Steward ID - [auto]Wire Steward ID - techBLOOD GAS, [id number] 13:16:00 Test Item Value Reference Range Interpretation Comments PH VENOUS (BEAKER) (test code = 7.12 7.32-7.42 LL 701) PCO2 VENOUS (BEAKER) (test code 26 mmHg 41-51 L = 755) PO2 VENOUS (BEAKER) (test code = 54 mmHg 25-40 H 702) O2 SATURATION VENOUS (BEAKER) 77.6 % 40.0-70.0 H (test code = 703) HCO3 VENOUS (BEAKER) (test code 8 mmol/L 21-29 LL = 705) BASE EXCESS VENOUS (BEAKER) -19.5 mmol/L -2.0-3.0 L (test code = 704) PATIENT TEMPERATURE (BEAKER) 37.0 C (test code = 1818) RAD, CHEST, 1 VIEW, NON [id number] 13:06:00Reason for exam:->shortness of breathShould this be performed at the bedside?->YesFINAL REPORT History: Shortness of breath Comparison: None Findings: The lungs are clear. No pleural effusions or pneumothorax. The heart shadow is normal in size. The thoracic aorta is mildly tortuous. Mild degenerative changes are present in the spine. Impression: No evidence ofacute cardiopulmonary disease. Signed: Aundrea Ware Verified Date/Time: 12/03/2019 13:06:53Reading Location: [address] Ortho Consult Reading Room POCT GLUCOSE (AUTOMATED)2019-09-13 19:19:00 Test Item Value Reference Range Interpretation Comments POCT GLU (test code = 1528516770) 211 mg/dL 70-110 H Lab Interpretation (test code = Abnormal 18121-1) [facility] 15:27:00 Test Item Value Reference Range Interpretation Comments POCT GLU (test code = 1299680386) 267 mg/dL 70-110 H Lab Interpretation (test code = Abnormal 25449-3) [facility] (NA, K, CL, CO2, GLUCOSE, BUN, CREATININE, CA)2019-09-13 11:20:00 Test Item Value Reference Range Interpretation Comments NA (test code = 131 mmol/L 135-145 L 1254518569) K (test code = 3.6 mmol/L 3.5-5 5611676032) CL (test code = 98 mmol/L 98-108 6235826593) CO2 TOTAL (test code = 27 mmol/L 23-31 5296683095) AGAP (test code = 2-16 1763216273) BUN (test code = 9 mg/dL 7-23 6765952365) GLUCOSE (test code = 152 mg/dL 70-110 H 0733006999) CREATININE (test code = 0.48 mg/dL 0.6-1.25 L 2828327810) CALCIUM (test code = 8.6 mg/dL 8.6-10.6 5403819092) eGFR Calculation mL/min/1.73m2 (Non-) (test code = 0599569792) eGFR Calculation mL/min/1.73m2 () (test code = 5655398962) AIDAN (test code = AIDAN) Association of Glomerular Filtration Rate (GFR) and Staging of Kidney Disease* + --+ --+ ------+| GFR (mL/min/1.73 m2) ?| With Kidney Damage ?| ?Without Kidney Damage+ --------+ --------+ +| ?>90 ?| ?Stage one ?| ? Normal ?+ ---+ ---+ -------+| ?60-89 ?| ?Stage two ?| ? Decreased GFR ? + --+ --+ ------+| ?30-59 ?| ?Stage three ?| ? Stage three ? + --+ --+ ------+| ?15-29 ?| ?Stage four ? | ? Stage four ?+ ---+ ---+ -------+| ?<15 (or dialysis) ? ?| ?Stage five ? | ? Stage five ?+ ---+ ---+ -------+ *Each stage assumes the associated GFR level has been in effect for at least three months. ?Stages 1 to 5, with or without kidney disease, indicate chronic kidney disease. Notes: Determination of stages one and two (with eGFR >59mL/min/1.73 m2) requires estimation of kidney damage for at least three months as defined by structural or functional abnormalities of the kidney, manifested by either:Pathological abnormalities or Markers of kidney damage (including abnormalities in the composition of the blood or urine or abnormalities in imaging tests). Lab Interpretation Abnormal (test code = 98590-3) [facility] GLUCOSE (AUTOMATED)2019-09-13 09:55:00 Test Item Value Reference Range Interpretation Comments POCT GLU (test code = 7992359890) 137 mg/dL 70-110 H Lab Interpretation (test code = Abnormal 34711-1) [facility] GLUCOSE (AUTOMATED)2019-09-13 06:04:00 Test Item Value Reference Range Interpretation Comments POCT GLU (test code = 9660133254) 117 mg/dL 70-110 H Lab Interpretation (test code = Abnormal 74182-1) [facility] GLUCOSE (AUTOMATED)2019-09-13 03:33:00 Test Item Value Reference Range Interpretation Comments POCT GLU (test code = 6271388841) 160 mg/dL 70-110 H Lab Interpretation (test code = Abnormal 35212-0) [facility] GLUCOSE (AUTOMATED)2019-09-12 23:34:00 Test Item Value Reference Range Interpretation Comments POCT GLU (test code = 161 mg/dL 70-110 H Notifi ed Provider [id number]) Lab Interpretation (test Abnormal code = 57423-5) [facility] GLUCOSE (AUTOMATED)2019-09-12 23:05:00 Test Item Value Reference Range Interpretation Comments POCT GLU (test code = 7729896923) 150 mg/dL 70-110 H Lab Interpretation (test code = Abnormal 84677-9) [facility] GLUCOSE (AUTOMATED)2019-09-12 17:29:00 Test Item Value Reference Range Interpretation Comments POCT GLU (test code = 3904570521) 163 mg/dL 70-110 H Lab Interpretation (test code = Abnormal 97185-4) [facility] GLUCOSE (AUTOMATED)2019-09-12 13:49:00 Test Item Value Reference Range Interpretation Comments POCT GLU (test code = 4574989282) 182 mg/dL 70-110 H Lab Interpretation (test code = Abnormal 08492-0) [facility] Metabolic Panel (Na, K, Cl, CO2, Glucose, BUN, Creatinine, Ca)2019-09-12 11:58:00 Test Item Value Reference Range Interpretation Comments NA (test code = 135 mmol/L 135-145 9188575623) K (test code = 3.8 mmol/L 3.5-5 8692256732) CL (test code = 105 mmol/L 98-108 1701920667) CO2 TOTAL (test code = 25 mmol/L 23-31 4408698663) AGAP (test code = 2-16 3106363397) BUN (test code = 5 mg/dL 7-23 L 0778553674) GLUCOSE (test code = 80 mg/dL 70-110 3454306806) CREATININE (test code = 0.53 mg/dL 0.6-1.25 L 3511070346) CALCIUM (test code = 8.6 mg/dL 8.6-10.6 8728464486) eGFR Calculation mL/min/1.73m2 (Non-) (test code = 6031873135) eGFR Calculation mL/min/1.73m2 () (test code = 6451332604) AIDAN (test code = AIDAN) Association of Glomerular Filtration Rate (GFR) and Staging of Kidney Disease* + --+ --+ ------+| GFR (mL/min/1.73 m2) ?| With Kidney Damage ?| ?Without Kidney Damage+ --------+ --------+ +| ?>90 ?| ?Stage one ?| ? Normal ?+ ---+ ---+ -------+| ?60-89 ?| ?Stage two ?| ? Decreased GFR ? + --+ --+ ------+| ?30-59 ?| ?Stage three ?| ? Stage three ? + --+ --+ ------+| ?15-29 ?| ?Stage four ? | ? Stage four ?+ ---+ ---+ -------+| ?<15 (or dialysis) ? ?| ?Stage five ? | ? Stage five ?+ ---+ ---+ -------+ *Each stage assumes the associated GFR level has been in effect for at least three months. ?Stages 1 to 5, with or without kidney disease, indicate chronic kidney disease. Notes: Determination of stages one and two (with eGFR >59mL/min/1.73 m2) requires estimation of kidney damage for at least three months as defined by structural or functional abnormalities of the kidney, manifested by either:Pathological abnormalities or Markers of kidney damage (including abnormalities in the composition of the blood or urine or abnormalities in imaging tests). Lab Interpretation Abnormal (test code = 26212-6) [facility] GLUCOSE (AUTOMATED)2019-09-12 10:30:00 Test Item Value Reference Range Interpretation Comments POCT GLU (test code = 5442425681) 175 mg/dL 70-110 H Lab Interpretation (test code = Abnormal 38083-3) [facility] GLUCOSE (AUTOMATED)2019-09-12 08:58:00 Test Item Value Reference Range Interpretation Comments POCT GLU (test code = 0105947201) 98 mg/dL 70-110 Lab Interpretation (test code = Normal 80064-6) [facility] Metabolic Panel (Na, K, Cl, CO2, Glucose, BUN, Creatinine, Ca)2019-09-12 06:43:00 Test Item Value Reference Range Interpretation Comments NA (test code = 134 mmol/L 135-145 L 0367486701) K (test code = 4.0 mmol/L 3.5-5 3190253182) CL (test code = 106 mmol/L 98-108 5143770512) CO2 TOTAL (test code = 22 mmol/L 23-31 L 5385889959) AGAP (test code = 2-16 1413910559) BUN (test code = 6 mg/dL 7-23 L 5597522482) GLUCOSE (test code = 250 mg/dL 70-110 H 8427052229) CREATININE (test code = 0.55 mg/dL 0.6-1.25 L 6554571453) CALCIUM (test code = 8.4 mg/dL 8.6-10.6 L 6412190113) eGFR Calculation mL/min/1.73m2 (Non-) (test code = 9276738873) eGFR Calculation mL/min/1.73m2 () (test code = 6653170240) AIDAN (test code = AIDAN) Association of Glomerular Filtration Rate (GFR) and Staging of Kidney Disease* + --+ --+ ------+| GFR (mL/min/1.73 m2) ?| With Kidney Damage ?| ?Without Kidney Damage+ --------+ --------+ +| ?>90 ?| ?Stage one ?| ? Normal ?+ ---+ ---+ -------+| ?60-89 ?| ?Stage two ?| ? Decreased GFR ? + --+ --+ ------+| ?30-59 ?| ?Stage three ?| ? Stage three ? + --+ --+ ------+| ?15-29 ?| ?Stage four ? | ? Stage four ?+ ---+ ---+ -------+| ?<15 (or dialysis) ? ?| ?Stage five ? | ? Stage five ?+ ---+ ---+ -------+ *Each stage assumes the associated GFR level has been in effect for at least three months. ?Stages 1 to 5, with or without kidney disease, indicate chronic kidney disease. Notes: Determination of stages one and two (with eGFR >59mL/min/1.73 m2) requires estimation of kidney damage for at least three months as defined by structural or functional abnormalities of the kidney, manifested by either:Pathological abnormalities or Markers of kidney damage (including abnormalities in the composition of the blood or urine or abnormalities in imaging tests). Lab Interpretation Abnormal (test code = 87953-3) [facility] GLUCOSE (AUTOMATED)2019-09-12 05:44:00 Test Item Value Reference Range Interpretation Comments POCT GLU (test code = 5881746887) 250 mg/dL 70-110 H Lab Interpretation (test code = Abnormal 72191-8) [facility] GLUCOSE (AUTOMATED)2019-09-12 02:48:00 Test Item Value Reference Range Interpretation Comments POCT GLU (test code = 0835629649) 213 mg/dL 70-110 H Lab Interpretation (test code = Abnormal 79472-9) [facility] GLUCOSE (AUTOMATED)2019-09-11 23:39:00 Test Item Value Reference Range Interpretation Comments POCT GLU (test code = 8149621694) 216 mg/dL 70-110 H Lab Interpretation (test code = Abnormal 25841-9) [facility] GLUCOSE (AUTOMATED)2019-09-11 21:35:00 Test Item Value Reference Range Interpretation Comments POCT GLU (test code = 5055939515) 276 mg/dL 70-110 H Lab Interpretation (test code = Abnormal 27315-1) [facility] / MSSA Screen by Shirley VALIENTETtobe0250-38-00 18:28:00 Test Item Value Reference Range Interpretation Comments MSSA Screen by Shirley VALIENTE (test code Negative Negative = 63543-5) MRSA/MSSA Positive? (test code = No No [id number]) Lab Interpretation (test code = Normal 93036-6) [facility] GLUCOSE (AUTOMATED)2019-09-11 18:21:00 Test Item Value Reference Range Interpretation Comments POCT GLU (test code = 6471704043) 206 mg/dL 70-110 H Lab Interpretation (test code = Abnormal 69231-3) [facility] GLUCOSE (AUTOMATED)2019-09-11 17:12:00 Test Item Value Reference Range Interpretation Comments POCT GLU (test code = 4472785153) 194 mg/dL 70-110 H Lab Interpretation (test code = Abnormal 93237-9) [facility] (Na, K, Cl, CO2, Glucose, BUN, Creatinine, Ca)2019-09-11 16:29:00 Test Item Value Reference Range Interpretation Comments NA (test code = 134 mmol/L 135-145 L [id number]) K (test code = 4.2 mmol/L 3.5-5 8489060836) CL (test code = 111 mmol/L 98-108 H 1524062793) CO2 TOTAL (test code = 21 mmol/L 23-31 L 3188503307) AGAP (test code = 2-16 4614965893) BUN (test code = 10 mg/dL 7-23 3521126055) GLUCOSE (test code = 184 mg/dL 70-110 H 5849567267) CREATININE (test code = 0.57 mg/dL 0.6-1.25 L 8115283528) CALCIUM (test code = 7.8 mg/dL 8.6-10.6 L 5866865240) eGFR Calculation mL/min/1.73m2 (Non-) (test code = 4686815766) eGFR Calculation mL/min/1.73m2 () (test code = 0732223831) AIDAN (test code = AIDAN) Association of Glomerular Filtration Rate (GFR) and Staging of Kidney Disease* + --+ --+ ------+| GFR (mL/min/1.73 m2) ?| With Kidney Damage ?| ?Without Kidney Damage+ --------+ --------+ +| ?>90 ?| ?Stage one ?| ? Normal ?+ ---+ ---+ -------+| ?60-89 ?| ?Stage two ?| ? Decreased GFR ? + --+ --+ ------+| ?30-59 ?| ?Stage three ?| ? Stage three ? + --+ --+ ------+| ?15-29 ?| ?Stage four ? | ? Stage four ?+ ---+ ---+ -------+| ?<15 (or dialysis) ? ?| ?Stage five ? | ? Stage five ?+ ---+ ---+ -------+ *Each stage assumes the associated GFR level has been in effect for at least three months. ?Stages 1 to 5, with or without kidney disease, indicate chronic kidney disease. Notes: Determination of stages one and two (with eGFR >59mL/min/1.73 m2) requires estimation of kidney damage for at least three months as defined by structural or functional abnormalities of the kidney, manifested by either:Pathological abnormalities or Markers of kidney damage (including abnormalities in the composition of the blood or urine or abnormalities in imaging tests). Lab Interpretation Abnormal (test code = 49305-2) [facility] GLUCOSE (AUTOMATED)2019-09-11 16:02:00 Test Item Value Reference Range Interpretation Comments POCT GLU (test code = 3621201044) 182 mg/dL 70-110 H Lab Interpretation (test code = Abnormal 99298-4) [facility] GLUCOSE (AUTOMATED)2019-09-11 15:23:00 Test Item Value Reference Range Interpretation Comments POCT GLU (test code = 4437310717) 175 mg/dL 70-110 H Lab Interpretation (test code = Abnormal 33957-8) [facility] GLUCOSE (AUTOMATED)2019-09-11 15:21:00 Test Item Value Reference Range Interpretation Comments POCT GLU (test code = 2748942801) >600 70-110 HH Lab Interpretation (test code = Abnormal 84688-5) [facility] GLUCOSE (AUTOMATED)2019-09-11 15:21:00 Test Item Value Reference Range Interpretation Comments POCT GLU (test code = 8989411749) >600 70-110 HH Lab Interpretation (test code = Abnormal 67371-5) [facility] WITH [id number] 14:20:00 Test Item Value Reference Range Interpretation Comments WBC (test code = See_Comment H [Automated 6690-2) message] The system which generated this result transmit todd reference range : 4.20 - 10.70 10*3/?L. The reference range was not used to interpret this result as normal/abnormal . RBC (test code = See_Comment L [Automated 789-8) message] The system which generated this result transmit todd reference range : 4.26 - 5.52 10*6/?L. The reference range was not used to interpret this result as normal/abnormal . HGB (test code = 10.2 g/dL 12.2-16.4 L 718-7) HCT (test code = 31.8 % 38.4-49.3 L 4544-3) MCV (test code = 92.2 fL 81.7-95.6 787-2) MCH (test code = 29.6 pg 26.1-32.7 785-6) MCHC (test code = 32.1 g/dL 31.2-35 786-4) RDW-SD (test code = 48.5 fL 38.5-51.6 66670-4) RDW-CV (test code = 14.4 % 12.1-15.4 788-0) PLT (test code = See_Comment [Automated 777-3) message] The system which generated this result transmit todd reference range : 150 - 328 10*3/ ?L. The reference range was not u sed to interpret th is result as normal/abnormal . MPV (test code = 8.6 fL 9.8-13 L 70189-1) NRBC/100 WBC (test See_Comment [Automat ed code = 3340227209) message] The system which generated this result transmit todd reference range : 0.0 - 10.0 /100 WBCs. The reference range was not used to interpret this result as normal/abnormal . NRBC x10^3 (test code <0.01 See_Comment [Auto mated = 0483708884) message] The system which generated this result transmit todd reference range : 10*3/?L. The reference range was not used to interpret this result as normal/abnormal . GRAN MAT (NEUT) % 89.1 % (test code = 770-8) IMM GRAN % (test code 0.40 % = 7586728327) LYMPH % (test code = 5.2 % 736-9) MONO % (test code = 4.7 % 5905-5) EOS % (test code = 0.5 % 713-8) BASO % (test code = 0.1 % 706-2) GRAN MAT x10^3(ANC) 12.06 10*3/uL 1.99-6.95 H (test code = 7499582333) IMM GRAN x10^3 (test 0.05 10*3/uL 0-0.06 code = 6729753331) LYMPH x10^3 (test code 0.70 10*3/uL 1.09-3.23 L = 731-0) MONO x10^3 (test code 0.64 10*3/uL 0.36-1.02 = 742-7) EOS x10^3 (test code = 0.07 10*3/uL 0.06-0.53 711-2) BASO x10^3 (test code <0.03 0.01-0.09 = 704-7) Lab Interpretation Abnormal (test code = 83616-7) [facility] GLUCOSE (AUTOMATED)2019-09-11 14:06:00 Test Item Value Reference Range Interpretation Comments POCT GLU (test code = 4721594981) 169 mg/dL 70-110 H Lab Interpretation (test code = Abnormal 71698-1) [facility] GLUCOSE (AUTOMATED)2019-09-11 13:16:00 Test Item Value Reference Range Interpretation Comments POCT GLU (test code = 9329195441) 144 mg/dL 70-110 H Lab Interpretation (test code = Abnormal 13885-5) [facility] Metabolic Panel (Na, K, Cl, CO2, Glucose, BUN, Creatinine, Ca)2019-09-11 12:52:00 Test Item Value Reference Range Interpretation Comments NA (test code = 137 mmol/L 135-145 9380252187) K (test code = 4.1 mmol/L 3.5-5 6478192422) CL (test code = 113 mmol/L 98-108 H 9094552427) CO2 TOTAL (test code = 19 mmol/L 23-31 L 4766320518) AGAP (test code = 2-16 7731038678) BUN (test code = 12 mg/dL 7-23 4423320071) GLUCOSE (test code = 126 mg/dL 70-110 H 6652652211) CREATININE (test code = 0.60 mg/dL 0.6-1.25 6766098579) CALCIUM (test code = 8.2 mg/dL 8.6-10.6 L 1497059264) eGFR Calculation mL/min/1.73m2 (Non-) (test code = 4807423888) eGFR Calculation mL/min/1.73m2 () (test code = 4463598704) AIDAN (test code = AIDAN) Association of Glomerular Filtration Rate (GFR) and Staging of Kidney Disease* + --+ --+ ------+| GFR (mL/min/1.73 m2) ?| With Kidney Damage ?| ?Without Kidney Damage+ --------+ --------+ +| ?>90 ?| ?Stage one ?| ? Normal ?+ ---+ ---+ -------+| ?60-89 ?| ?Stage two ?| ? Decreased GFR ? + --+ --+ ------+| ?30-59 ?| ?Stage three ?| ? Stage three ? + --+ --+ ------+| ?15-29 ?| ?Stage four ? | ? Stage four ?+ ---+ ---+ -------+| ?<15 (or dialysis) ? ?| ?Stage five ? | ? Stage five ?+ ---+ ---+ -------+ *Each stage assumes the associated GFR level has been in effect for at least three months. ?Stages 1 to 5, with or without kidney disease, indicate chronic kidney disease. Notes: Determination of stages one and two (with eGFR >59mL/min/1.73 m2) requires estimation of kidney damage for at least three months as defined by structural or functional abnormalities of the kidney, manifested by either:Pathological abnormalities or Markers of kidney damage (including abnormalities in the composition of the blood or urine or abnormalities in imaging tests). Lab Interpretation Abnormal (test code = 40723-2) [facility] GLUCOSE (AUTOMATED)2019-09-11 12:18:00 Test Item Value Reference Range Interpretation Comments POCT GLU (test code = 7460085768) 127 mg/dL 70-110 H Lab Interpretation (test code = Abnormal 80154-8) [facility] GLUCOSE (AUTOMATED)2019-09-11 11:17:00 Test Item Value Reference Range Interpretation Comments POCT GLU (test code = 3399253652) 143 mg/dL 70-110 H Lab Interpretation (test code = Abnormal 30535-3) [facility] GLUCOSE (AUTOMATED)2019-09-11 10:15:00 Test Item Value Reference Range Interpretation Comments POCT GLU (test code = 9206021179) 165 mg/dL 70-110 H Lab Interpretation (test code = Abnormal 73161-8) [facility] GLUCOSE (AUTOMATED)2019-09-11 09:05:00 Test Item Value Reference Range Interpretation Comments POCT GLU (test code = 2872738635) 189 mg/dL 70-110 H Lab Interpretation (test code = Abnormal 46198-6) [facility] Metabolic Panel (Na, K, Cl, CO2, Glucose, BUN, Creatinine, Ca)2019-09-11 08:50:00 Test Item Value Reference Range Interpretation Comments NA (test code = 137 mmol/L 135-145 0405010925) K (test code = 4.2 mmol/L 3.5-5 8491407237) CL (test code = 114 mmol/L 98-108 H 8292016628) CO2 TOTAL (test code = 18 mmol/L 23-31 L 2441737794) AGAP (test code = 2-16 6847571030) BUN (test code = 13 mg/dL 7-23 3016425048) GLUCOSE (test code = 207 mg/dL 70-110 H 8248550899) CREATININE (test code = 0.63 mg/dL 0.6-1.25 4129556482) CALCIUM (test code = 7.9 mg/dL 8.6-10.6 L 0692605778) eGFR Calculation mL/min/1.73m2 (Non-) (test code = 8950708753) eGFR Calculation mL/min/1.73m2 () (test code = 9579336835) AIDAN (test code = AIDAN) Association of Glomerular Filtration Rate (GFR) and Staging of Kidney Disease* + --+ --+ ------+| GFR (mL/min/1.73 m2) ?| With Kidney Damage ?| ?Without Kidney Damage+ --------+ --------+ +| ?>90 ?| ?Stage one ?| ? Normal ?+ ---+ ---+ -------+| ?60-89 ?| ?Stage two ?| ? Decreased GFR ? + --+ --+ ------+| ?30-59 ?| ?Stage three ?| ? Stage three ? + --+ --+ ------+| ?15-29 ?| ?Stage four ? | ? Stage four ?+ ---+ ---+ -------+| ?<15 (or dialysis) ? ?| ?Stage five ? | ? Stage five ?+ ---+ ---+ -------+ *Each stage assumes the associated GFR level has been in effect for at least three months. ?Stages 1 to 5, with or without kidney disease, indicate chronic kidney disease. Notes: Determination of stages one and two (with eGFR >59mL/min/1.73 m2) requires estimation of kidney damage for at least three months as defined by structural or functional abnormalities of the kidney, manifested by either:Pathological abnormalities or Markers of kidney damage (including abnormalities in the composition of the blood or urine or abnormalities in imaging tests). Lab Interpretation Abnormal (test code = 44405-7) [facility] GLUCOSE (AUTOMATED)2019-09-11 08:13:00 Test Item Value Reference Range Interpretation Comments POCT GLU (test code = 0328531016) 213 mg/dL 70-110 H Lab Interpretation (test code = Abnormal 72086-6) [id number] 07:25:00 Test Item Value Reference Range Interpretation Comments SPUTUM CULTURE (test Specimen cellular code = 622-1) elements do not represent lower respiratory tract. Specimen rejected for routine bacterial culture. Suggest reorder and recollection. [facility] GLUCOSE (AUTOMATED)2019-09-11 07:15:00 Test Item Value Reference Range Interpretation Comments POCT GLU (test code = 4927373815) 215 mg/dL 70-110 H Lab Interpretation (test code = Abnormal 94198-2) [facility] GLUCOSE (AUTOMATED)2019-09-11 06:21:00 Test Item Value Reference Range Interpretation Comments POCT GLU (test code = 1315411009) 230 mg/dL 70-110 H Lab Interpretation (test code = Abnormal 82065-3) [facility] GLUCOSE (AUTOMATED)2019-09-11 05:13:00 Test Item Value Reference Range Interpretation Comments POCT GLU (test code = 4751177418) 201 mg/dL 70-110 H Lab Interpretation (test code = Abnormal 49994-8) [facility] Metabolic Panel (Na, K, Cl, CO2, Glucose, BUN, Creatinine, Ca)2019-09-11 04:48:00 Test Item Value Reference Range Interpretation Comments NA (test code = 136 mmol/L 135-145 3666061319) K (test code = 4.3 mmol/L 3.5-5 8153347939) CL (test code = 114 mmol/L 98-108 H 0882067246) CO2 TOTAL (test code = 17 mmol/L 23-31 L 6695673808) AGAP (test code = 2-16 5205178423) BUN (test code = 15 mg/dL 7-23 8709910157) GLUCOSE (test code = 165 mg/dL 70-110 H 6974743498) CREATININE (test code = 0.66 mg/dL 0.6-1.25 3729958374) CALCIUM (test code = 8.0 mg/dL 8.6-10.6 L 4281882957) eGFR Calculation mL/min/1.73m2 (Non-) (test code = 2390762374) eGFR Calculation mL/min/1.73m2 () (test code = 9513095947) AIDAN (test code = AIDAN) Association of Glomerular Filtration Rate (GFR) and Staging of Kidney Disease* + --+ --+ ------+| GFR (mL/min/1.73 m2) ?| With Kidney Damage ?| ?Without Kidney Damage+ --------+ --------+ +| ?>90 ?| ?Stage one ?| ? Normal ?+ ---+ ---+ -------+| ?60-89 ?| ?Stage two ?| ? Decreased GFR ? + --+ --+ ------+| ?30-59 ?| ?Stage three ?| ? Stage three ? + --+ --+ ------+| ?15-29 ?| ?Stage four ? | ? Stage four ?+ ---+ ---+ -------+| ?<15 (or dialysis) ? ?| ?Stage five ? | ? Stage five ?+ ---+ ---+ -------+ *Each stage assumes the associated GFR level has been in effect for at least three months. ?Stages 1 to 5, with or without kidney disease, indicate chronic kidney disease. Notes: Determination of stages one and two (with eGFR >59mL/min/1.73 m2) requires estimation of kidney damage for at least three months as defined by structural or functional abnormalities of the kidney, manifested by either:Pathological abnormalities or Markers of kidney damage (including abnormalities in the composition of the blood or urine or abnormalities in imaging tests). Lab Interpretation Abnormal (test code = 82166-2) [facility] GLUCOSE (AUTOMATED)2019-09-11 04:11:00 Test Item Value Reference Range Interpretation Comments POCT GLU (test code = 6406294843) 174 mg/dL 70-110 H Lab Interpretation (test code = Abnormal 39236-1) [facility] GLUCOSE (AUTOMATED)2019-09-11 03:17:00 Test Item Value Reference Range Interpretation Comments POCT GLU (test code = 7070428343) 148 mg/dL 70-110 H Lab Interpretation (test code = Abnormal 12482-5) [facility] GLUCOSE (AUTOMATED)2019-09-11 03:02:00 Test Item Value Reference Range Interpretation Comments POCT GLU (test code = 8714454279) 168 mg/dL 70-110 H Lab Interpretation (test code = Abnormal 52571-5) [facility] GLUCOSE (AUTOMATED)2019-09-11 02:30:00 Test Item Value Reference Range Interpretation Comments POCT GLU (test code = 9459718401) 63 mg/dL 70-110 L Lab Interpretation (test code = Abnormal 90360-6) [facility] GLUCOSE (AUTOMATED)2019-09-11 02:22:00 Test Item Value Reference Range Interpretation Comments POCT GLU (test code = 4281126872) 77 mg/dL 70-110 Lab Interpretation (test code = Normal 84808-2) [facility] Metabolic Panel (Na, K, Cl, CO2, Glucose, BUN, Creatinine, Ca)2019-09-11 00:27:00 Test Item Value Reference Range Interpretation Comments NA (test code = 140 mmol/L 135-145 0805817225) K (test code = 3.8 mmol/L 3.5-5 5021823275) CL (test code = 116 mmol/L 98-108 H 8246341052) CO2 TOTAL (test code = 18 mmol/L 23-31 L 0807912906) AGAP (test code = 2-16 9539179860) BUN (test code = 17 mg/dL 7-23 2769580696) GLUCOSE (test code = 175 mg/dL 70-110 H 4134104186) CREATININE (test code = 0.69 mg/dL 0.6-1.25 7490759758) CALCIUM (test code = 8.0 mg/dL 8.6-10.6 L 0967065892) eGFR Calculation mL/min/1.73m2 (Non-) (test code = 7573323024) eGFR Calculation mL/min/1.73m2 () (test code = 1198831679) AIDAN (test code = AIDAN) Association of Glomerular Filtration Rate (GFR) and Staging of Kidney Disease* + --+ --+ ------+| GFR (mL/min/1.73 m2) ?| With Kidney Damage ?| ?Without Kidney Damage+ --------+ --------+ +| ?>90 ?| ?Stage one ?| ? Normal ?+ ---+ ---+ -------+| ?60-89 ?| ?Stage two ?| ? Decreased GFR ? + --+ --+ ------+| ?30-59 ?| ?Stage three ?| ? Stage three ? + --+ --+ ------+| ?15-29 ?| ?Stage four ? | ? Stage four ?+ ---+ ---+ -------+| ?<15 (or dialysis) ? ?| ?Stage five ? | ? Stage five ?+ ---+ ---+ -------+ *Each stage assumes the associated GFR level has been in effect for at least three months. ?Stages 1 to 5, with or without kidney disease, indicate chronic kidney disease. Notes: Determination of stages one and two (with eGFR >59mL/min/1.73 m2) requires estimation of kidney damage for at least three months as defined by structural or functional abnormalities of the kidney, manifested by either:Pathological abnormalities or Markers of kidney damage (including abnormalities in the composition of the blood or urine or abnormalities in imaging tests). Lab Interpretation Abnormal (test code = 28285-7) [facility] (for use with Heparin Practice Guideline). Note: Draw and Send all Lab STAT.2019-09-11 00:13:00 Test Item Value Reference Range Interpretation Comments APTT Patient (test code See_Comment H [Au tomated message] = 3173-2) The system [email or web address] generated this result transmitted ref erence range: 26 - 36 Seconds. The reference range was not used to int erpret this result as normal/abnormal . Lab Interpretation (test Abnormal code = 57971-3) [facility] GLUCOSE (AUTOMATED)2019-09-11 00:00:00 Test Item Value Reference Range Interpretation Comments POCT GLU (test code = 7644391700) 172 mg/dL 70-110 H Lab Interpretation (test code = Abnormal 20178-9) [facility] GLUCOSE (AUTOMATED)2019-09-10 22:39:00 Test Item Value Reference Range Interpretation Comments POCT GLU (test code = 3738612259) 229 mg/dL 70-110 H Lab Interpretation (test code = Abnormal 45748-3) [facility] [id number] 21:32:00 Test Item Value Reference Range Interpretation Comments TROPONIN I (test 0.123 ng/mL See_Comment H [Automated code = 1036077961) message] The system which generated this result transmitted reference range : <=0.034. The reference range was not used to interpret this result as normal/abnormal . AIDAN (test code = Equal or Less than AIDAN) 0.034 ng/ml---Normal ?Note: Cardiac troponin begins to rise 3-4 hours after the onset of ischemia. Repeat in 4-6 hours if the sample was drawn within 3-4 hours of the onset of the symptom and found normal. Between 0.035 and 0.120 ng/mL--- Borderline. Questionable myocardial injury or necrosis ? ?Note: Serial measurement may be necessary to confirm or exclude the diagnosis of myocardial injury or necrosis; Clinical correlation (symptoms, EKGs, imaging studies, and others) required; Repeat in 4-6 hours if clinically indicated. ? Equal or Higher than 0.121 ng/mL---Abnormal. Myocardial Injury or Necrosis Likely ? Biotin has been reported to cause a negative bias, interpret results relative to patient's use of biotin. ? Lab Interpretation Abnormal (test code = 12454-2) [facility] (Na, K, Cl, CO2, Glucose, BUN, Creatinine, Ca)2019-09-10 21:32:00 Test Item Value Reference Range Interpretation Comments NA (test code = 141 mmol/L 135-145 8502446023) K (test code = 3.6 mmol/L 3.5-5 0230943181) CL (test code = 120 mmol/L 98-108 H 6154274359) CO2 TOTAL (test code = 13 mmol/L 23-31 L 6632888938) AGAP (test code = 2-16 1226423348) BUN (test code = 16 mg/dL 7-23 8999897816) GLUCOSE (test code = 240 mg/dL 70-110 H 7667035137) CREATININE (test code = 0.63 mg/dL 0.6-1.25 5716450983) CALCIUM (test code = 6.8 mg/dL 8.6-10.6 L 7074100442) eGFR Calculation mL/min/1.73m2 (Non-) (test code = 5403496684) eGFR Calculation mL/min/1.73m2 () (test code = 4343450095) AIDAN (test code = AIDAN) Association of Glomerular Filtration Rate (GFR) and Staging of Kidney Disease* + --+ --+ ------+| GFR (mL/min/1.73 m2) ?| With Kidney Damage ?| ?Without Kidney Damage+ --------+ --------+ +| ?>90 ?| ?Stage one ?| ? Normal ?+ ---+ ---+ -------+| ?60-89 ?| ?Stage two ?| ? Decreased GFR ? + --+ --+ ------+| ?30-59 ?| ?Stage three ?| ? Stage three ? + --+ --+ ------+| ?15-29 ?| ?Stage four ? | ? Stage four ?+ ---+ ---+ -------+| ?<15 (or dialysis) ? ?| ?Stage five ? | ? Stage five ?+ ---+ ---+ -------+ *Each stage assumes the associated GFR level has been in effect for at least three months. ?Stages 1 to 5, with or without kidney disease, indicate chronic kidney disease. Notes: Determination of stages one and two (with eGFR >59mL/min/1.73 m2) requires estimation of kidney damage for at least three months as defined by structural or functional abnormalities of the kidney, manifested by either:Pathological abnormalities or Markers of kidney damage (including abnormalities in the composition of the blood or urine or abnormalities in imaging tests). Lab Interpretation Abnormal (test code = 67922-8) [facility] + LACTIC [id number] 21:06:00 Test Item Value Reference Range Interpretation Comments PH (test code = 7.32-7.42 L 2265794329) PCO2 CHEMO (test code = See_Comment L [Auto mated 7075161862) message] The sy stem which generated this result transmitted reference range : 41 - 51 mmHg. The reference range was not used to interpret this result as normal/abnormal . PO2 CHEMO (test code = See_Comment HH [Autom ated 0486103006) message] The sy stem which generated this result transmitted reference range : 25 - 40 mmHg. The reference range was not used to interpret this result as normal/abnormal . HCO3 CHEMO (test code = See_Comment L [Auto mated 1562010491) message] The sy stem which generated this result transmitted reference range : 24 - 28 mEq/L. The reference range was not used to interpret this result as normal/abnormal . AC VBE(BEAKER) (test mEq/L code = 1109111636) THB CHEMO (test code = 11.4 g/dL 13.5-18 L 0100901667) %O2HB HCEMO (test code = 97.3 % 52-63 H 8950182582) %COHB CHEMO (test code = 0.3 % 0-1.5 6842031889) %METHB CHEMO (test code = 0.6 % 0.4-1.5 8811715812) VOL%O2 CHEMO (test code = 15.9 % 6-12 H 5038334510) NA (test code = 138 mmol/L 135-145 6508561245) K+ (test code = 4.1 mmol/L 3.5-5 4012441199) AC CA IONZ (test code = 5.00 mg/dL 4.5-5.3 9668749413) GLUCOSE (test code = 283 mg/dL 70-110 H 6336316385) LACTIC ACID (test code 0.99 mmol/L 0.5-2.2 = 3439326607) Lab Interpretation Abnormal (test code = 10150-6) [facility]2019-09-10 20:57:00 Test Item Value Reference Range Interpretation Comments POCT GLU (test code = 5262982880) 253 mg/dL 70-110 H Lab Interpretation (test code = Abnormal 60676-3) [facility] [id number] 18:17:00 Test Item Value Reference Range Interpretation Comments TROPONIN I (test 0.240 ng/mL See_Comment H [Automated code = 9967622751) message] The system which generated this result transmitted reference range : <=0.034. The reference range was not used to interpret this result as normal/abnormal . AIDAN (test code = Equal or Less than AIDAN) 0.034 ng/ml---Normal ?Note: Cardiac troponin begins to rise 3-4 hours after the onset of ischemia. Repeat in 4-6 hours if the sample was drawn within 3-4 hours of the onset of the symptom and found normal. Between 0.035 and 0.120 ng/mL--- Borderline. Questionable myocardial injury or necrosis ? ?Note: Serial measurement may be necessary to confirm or exclude the diagnosis of myocardial injury or necrosis; Clinical correlation (symptoms, EKGs, imaging studies, and others) required; Repeat in 4-6 hours if clinically indicated. ? Equal or Higher than 0.121 ng/mL---Abnormal. Myocardial Injury or Necrosis Likely ? Biotin has been reported to cause a negative bias, interpret results relative to patient's use of biotin. ? Lab Interpretation Abnormal (test code = 80255-0) [facility] (Na, K, Cl, CO2, Glucose, BUN, Creatinine, Ca)2019-09-10 18:06:00 Test Item Value Reference Range Interpretation Comments NA (test code = 141 mmol/L 135-145 3897665157) K (test code = 4.5 mmol/L 3.5-5 0801442172) CL (test code = 117 mmol/L 98-108 H 4704522619) CO2 TOTAL (test code = 15 mmol/L 23-31 L 9132827591) AGAP (test code = 2-16 2298514161) BUN (test code = 20 mg/dL 7-23 5928675598) GLUCOSE (test code = 209 mg/dL 70-110 H 5931398557) CREATININE (test code = 0.82 mg/dL 0.6-1.25 5397621779) CALCIUM (test code = 8.0 mg/dL 8.6-10.6 L 8470689603) eGFR Calculation mL/min/1.73m2 (Non-) (test code = 7809988474) eGFR Calculation mL/min/1.73m2 () (test code = 4773066799) AIDAN (test code = AIDAN) Association of Glomerular Filtration Rate (GFR) and Staging of Kidney Disease* + --+ --+ ------+| GFR (mL/min/1.73 m2) ?| With Kidney Damage ?| ?Without Kidney Damage+ --------+ --------+ +| ?>90 ?| ?Stage one ?| ? Normal ?+ ---+ ---+ -------+| ?60-89 ?| ?Stage two ?| ? Decreased GFR ? + --+ --+ ------+| ?30-59 ?| ?Stage three ?| ? Stage three ? + --+ --+ ------+| ?15-29 ?| ?Stage four ? | ? Stage four ?+ ---+ ---+ -------+| ?<15 (or dialysis) ? ?| ?Stage five ? | ? Stage five ?+ ---+ ---+ -------+ *Each stage assumes the associated GFR level has been in effect for at least three months. ?Stages 1 to 5, with or without kidney disease, indicate chronic kidney disease. Notes: Determination of stages one and two (with eGFR >59mL/min/1.73 m2) requires estimation of kidney damage for at least three months as defined by structural or functional abnormalities of the kidney, manifested by either:Pathological abnormalities or Markers of kidney damage (including abnormalities in the composition of the blood or urine or abnormalities in imaging tests). Lab Interpretation Abnormal (test code = 34555-9) [facility] ([facility] / [id number] 17:59:00 Test Item Value Reference Range Interpretation Comments PROTIME PATIENT (test See_Comment [Auto mated message] code = 5964-2) The system [employer] generated this result transmitted ref erence range: 10.1 - 1 2.6 Seconds. The re ference range was not u sed to interpret this result as normal/abnor mal. INR (test code = 6301-6) Nor mal INR <1.1; Warfarin Therap eutic range 2.0 to 3. 0 or 2.5 to 3.5, dep ending upon the indica tions. Lab Interpretation (test Normal code = 67120-0) [facility]aPTT2020-02-16 17:59:00 Test Item Value Reference Range Interpretation Comments APTT Patient (test code = See_Comment [ Automated message] 3173-2) The system [employer] h generated this result transmitted ref erence range: 26 - 36 Seconds. The re ference range was not u sed to interpret this result as normal/abnor mal. Lab Interpretation (test Normal code = 96615-7) [facility] (AUTOMATED)2019-09-10 13:59:00 Test Item Value Reference Range Interpretation Comments POCT GLU (test code = 6921209250) 248 mg/dL 70-110 H Lab Interpretation (test code = Abnormal 83507-5) [facility]+COOX+NA+K+GLU+CA2+2019-09-10 13:51:00 Test Item Value Reference Range Interpretation Comments PH (test code = 2) 7.35-7.45 L PCO2 (test code = See_Comment L [Automate d message] 5724909799) The system [employer] generated this result transmit todd reference range : 35 - 45 mmHg. The reference range was not used to interpret this result as normal/abnormal . PO2 (test code = See_Comment H [Automated message] 8359301587) The system [employer] generated this result transmit todd reference range : 80 - 100 mmHg. The reference range was not used to interpret this result as normal/abnormal . HCO3 (test code = See_Comment L [Automate d message] 4160693899) The system [employer] generated this result transmit todd reference range : 22 - 26 mEq/L. The reference range was not used to interpret this result as normal/abnormal . BE (test code = See_Comment L [Automated message] 7871096223) The system [employer] generated this result transmit todd reference range : -3.0 - 3.0 mEq/ L. The reference r elvin was not used to interpret this result as normal/abnormal . THB (test code = 11.2 g/dL 13.5-18 L 8782748286) %O2HB (test code = 97.8 % 94-99 4580886683) %COHB ART (test code = 0.3 % 0-1.5 4490024086) %METHB ART (test code = 0.2 % 0.4-1.5 L 0023567171) VOL%O2 ART (test code = 15.8 % 15-23 3135689881) NA (test code = 139 mmol/L 135-145 1646284744) K+ (test code = 4.4 mmol/L 3.5-5 9235933812) AC CA IONZ (test code = 5.00 mg/dL 4.5-5.3 1224812595) GLUCOSE (test code = 268 mg/dL 70-110 H 2935425287) Lab Interpretation Abnormal (test code = 27668-4) [facility]JAX [id number] 13:32:00 Test Item Value Reference Range Interpretation Comments TROPONIN I (test 0.356 ng/mL See_Comment H [Automated code = 3107021555) message] The system which generated this result transmitted reference range : <=0.034. The reference range was not used to interpret this result as normal/abnormal . AIDAN (test code = Equal or Less than AIDAN) 0.034 ng/ml---Normal ?Note: Cardiac troponin begins to rise 3-4 hours after the onset of ischemia. Repeat in 4-6 hours if the sample was drawn within 3-4 hours of the onset of the symptom and found normal. Between 0.035 and 0.120 ng/mL--- Borderline. Questionable myocardial injury or necrosis ? ?Note: Serial measurement may be necessary to confirm or exclude the diagnosis of myocardial injury or necrosis; Clinical correlation (symptoms, EKGs, imaging studies, and others) required; Repeat in 4-6 hours if clinically indicated. ? Equal or Higher than 0.121 ng/mL---Abnormal. Myocardial Injury or Necrosis Likely ? Biotin has been reported to cause a negative bias, interpret results relative to patient's use of biotin. ? Lab Interpretation Abnormal (test code = 99677-0) [facility] Metabolic Panel (Na, K, Cl, CO2, Glucose, BUN, Creatinine, Ca)2019-09-10 13:20:00 Test Item Value Reference Range Interpretation Comments NA (test code = 141 mmol/L 135-145 1011098333) K (test code = 4.4 mmol/L 3.5-5 2382373066) CL (test code = 120 mmol/L 98-108 H 0998809293) CO2 TOTAL (test code = 12 mmol/L 23-31 L 4740131198) AGAP (test code = 2-16 0532327781) BUN (test code = 20 mg/dL 7-23 5608170678) GLUCOSE (test code = 236 mg/dL 70-110 H 2766582008) CREATININE (test code = 0.69 mg/dL 0.6-1.25 2483671528) CALCIUM (test code = 7.0 mg/dL 8.6-10.6 L 0661076310) eGFR Calculation mL/min/1.73m2 (Non-) (test code = 1497137827) eGFR Calculation mL/min/1.73m2 () (test code = 9314088106) AIDAN (test code = AIDAN) Association of Glomerular Filtration Rate (GFR) and Staging of Kidney Disease* + --+ --+ ------+| GFR (mL/min/1.73 m2) ?| With Kidney Damage ?| ?Without Kidney Damage+ --------+ --------+ +| ?>90 ?| ?Stage one ?| ? Normal ?+ ---+ ---+ -------+| ?60-89 ?| ?Stage two ?| ? Decreased GFR ? + --+ --+ ------+| ?30-59 ?| ?Stage three ?| ? Stage three ? + --+ --+ ------+| ?15-29 ?| ?Stage four ? | ? Stage four ?+ ---+ ---+ -------+| ?<15 (or dialysis) ? ?| ?Stage five ? | ? Stage five ?+ ---+ ---+ -------+ *Each stage assumes the associated GFR level has been in effect for at least three months. ?Stages 1 to 5, with or without kidney disease, indicate chronic kidney disease. Notes: Determination of stages one and two (with eGFR >59mL/min/1.73 m2) requires estimation of kidney damage for at least three months as defined by structural or functional abnormalities of the kidney, manifested by either:Pathological abnormalities or Markers of kidney damage (including abnormalities in the composition of the blood or urine or abnormalities in imaging tests). Lab Interpretation Abnormal (test code = 90215-7) [facility] GLUCOSE (AUTOMATED)2019-09-10 12:24:00 Test Item Value Reference Range Interpretation Comments POCT GLU (test code = 9738937043) 243 mg/dL 70-110 H Lab Interpretation (test code = Abnormal 81513-4) [facility] GLUCOSE(AGE >30DAYS)2019-09-10 12:15:00 Test Item Value Reference Range Interpretation Comments POCT Glu (age>30days) (test code = 243 mg/dL 70-110 A 3342) Lab Interpretation (test code = Abnormal 62158-3) [facility] Metabolic Panel (Na, K, Cl, CO2, Glucose, BUN, Creatinine, Ca)2019-09-10 10:35:00 Test Item Value Reference Range Interpretation Comments NA (test code = 140 mmol/L 135-145 9431102834) K (test code = 4.4 mmol/L 3.5-5 2362595173) CL (test code = 119 mmol/L 98-108 H 5136511501) CO2 TOTAL (test code = 13 mmol/L 23-31 L 6777026141) AGAP (test code = 2-16 1565586865) BUN (test code = 20 mg/dL 7-23 9034082055) GLUCOSE (test code = 163 mg/dL 70-110 H 5493607406) CREATININE (test code = 0.77 mg/dL 0.6-1.25 5553595899) CALCIUM (test code = 7.7 mg/dL 8.6-10.6 L 4653533152) eGFR Calculation mL/min/1.73m2 (Non-) (test code = 2162683594) eGFR Calculation mL/min/1.73m2 () (test code = 6627742347) AIDAN (test code = AIDAN) Association of Glomerular Filtration Rate (GFR) and Staging of Kidney Disease* + --+ --+ ------+| GFR (mL/min/1.73 m2) ?| With Kidney Damage ?| ?Without Kidney Damage+ --------+ --------+ +| ?>90 ?| ?Stage one ?| ? Normal ?+ ---+ ---+ -------+| ?60-89 ?| ?Stage two ?| ? Decreased GFR ? + --+ --+ ------+| ?30-59 ?| ?Stage three ?| ? Stage three ? + --+ --+ ------+| ?15-29 ?| ?Stage four ? | ? Stage four ?+ ---+ ---+ -------+| ?<15 (or dialysis) ? ?| ?Stage five ? | ? Stage five ?+ ---+ ---+ -------+ *Each stage assumes the associated GFR level has been in effect for at least three months. ?Stages 1 to 5, with or without kidney disease, indicate chronic kidney disease. Notes: Determination of stages one and two (with eGFR >59mL/min/1.73 m2) requires estimation of kidney damage for at least three months as defined by structural or functional abnormalities of the kidney, manifested by either:Pathological abnormalities or Markers of kidney damage (including abnormalities in the composition of the blood or urine or abnormalities in imaging tests). Lab Interpretation Abnormal (test code = 07604-0) [facility] GLUCOSE (AUTOMATED)2019-09-10 10:23:00 Test Item Value Reference Range Interpretation Comments POCT GLU (test code = 7775860325) 357 mg/dL 70-110 H Lab Interpretation (test code = Abnormal 72500-1) [facility] GLUCOSE (AUTOMATED)2019-09-10 10:23:00 Test Item Value Reference Range Interpretation Comments POCT GLU (test code = 0848103655) 186 mg/dL 70-110 H Lab Interpretation (test code = Abnormal 19360-2) [facility] GLUCOSE(AGE >30DAYS)2019-09-10 10:15:00 Test Item Value Reference Range Interpretation Comments POCT Glu (age>30days) (test code = 186 mg/dL 70-110 A 3342) Lab Interpretation (test code = Abnormal 63138-6) [facility] GLUCOSE (AUTOMATED)2019-09-10 08:47:00 Test Item Value Reference Range Interpretation Comments POCT GLU (test code = 3110177249) 142 mg/dL 70-110 H Lab Interpretation (test code = Abnormal 73323-2) [facility] GLUCOSE (AUTOMATED)2019-09-10 07:44:00 Test Item Value Reference Range Interpretation Comments POCT GLU (test code = 1108029796) 163 mg/dL 70-110 H Lab Interpretation (test code = Abnormal 15936-1) [facility] (Na, K, Cl, CO2, Glucose, BUN, Creatinine, Ca)2019-09-10 07:43:00 Test Item Value Reference Range Interpretation Comments NA (test code = 140 mmol/L 135-145 8678508592) K (test code = 5.0 mmol/L 3.5-5 Slight 4596016734) hemolysis CL (test code = 114 mmol/L 98-108 H 8499207320) CO2 TOTAL (test code 18 mmol/L 23-31 L = 8389464972) AGAP (test code = 2-16 3735771892) BUN (test code = 24 mg/dL 7-23 H Slight 1653998775) hemolysis GLUCOSE (test code = 172 mg/dL 70-110 H 5156432162) CREATININE (test code 0.89 mg/dL 0.6-1.25 = 1848403718) CALCIUM (test code = 9.2 mg/dL 8.6-10.6 7640011336) eGFR Calculation mL/min/1.73m2 (Non-) (test code = 2466653397) eGFR Calculation mL/min/1.73m2 () (test code = 2299018295) AIDAN (test code = AIDAN) Association of Glomerular Filtration Rate (GFR) and Staging of Kidney Disease* + -----+ --------+ +| GFR (mL/min/1.73 m2) ?| With Kidney Damage ?| ?Without Kidney Damage+ +------- +---- --+| ?>90 ?| ?Stage one ?| ? Normal ?+ ------+ ---------+--------- +| ?60-89 ?| ?Stage two ?| ? Decreased GFR ? + -----+ --------+ +| ?30-59 ?| ?Stage three ?| ? Stage three ? + -----+ --------+ +| ?15-29 ?| ?Stage four ? | ? Stage four ?+ ------+ ---------+--------- +| ?<15 (or dialysis) ? ?| ?Stage five ? | ? Stage five ?+ ------+ ---------+--------- + *Each stage assumes the associated GFR level has been in effect for at least three months. ?Stages 1 to 5, with or without kidney disease, indicate chronic kidney disease. Notes: Determination of stages one and two (with eGFR >59mL/min/1.73 m2) requires estimation of kidney damage for at least three months as defined by structural or functional abnormalities of the kidney, manifested by either:Pathological abnormalities or Markers of kidney damage (including abnormalities in the composition of the blood or urine or abnormalities in imaging tests). Lab Interpretation Abnormal (test code = 40395-1) [facility] GLUCOSE(AGE >30DAYS)2019-09-10 07:40:00 Test Item Value Reference Range Interpretation Comments POCT Glu (age>30days) (test code = 163 mg/dL 70-110 A 3342) Lab Interpretation (test code = Abnormal 08427-7) [facility] GLUCOSE (AUTOMATED)2019-09-10 07:01:00 Test Item Value Reference Range Interpretation Comments POCT GLU (test code = 3020007975) 179 mg/dL 70-110 H Lab Interpretation (test code = Abnormal 26901-8) [facility] GLUCOSE(AGE >30DAYS)2019-09-10 06:40:00 Test Item Value Reference Range Interpretation Comments POCT Glu (age>30days) (test code = 179 mg/dL 70-110 A 3342) Lab Interpretation (test code = Abnormal 13023-2) [facility] GLUCOSE (AUTOMATED)2019-09-10 05:37:00 Test Item Value Reference Range Interpretation Comments POCT GLU (test code = 2607192452) 223 mg/dL 70-110 H Lab Interpretation (test code = Abnormal 28454-3) [facility] GLUCOSE(AGE >30DAYS)2019-09-10 05:35:00 Test Item Value Reference Range Interpretation Comments POCT Glu (age>30days) (test code = 223 mg/dL 70-110 A 3342) Lab Interpretation (test code = Abnormal 43543-2) [facility] Metabolic Panel (Na, K, Cl, CO2, Glucose, BUN, Creatinine, Ca)2019-09-10 04:36:00 Test Item Value Reference Range Interpretation Comments NA (test code = 139 mmol/L 135-145 0291055529) K (test code = 5.0 mmol/L 3.5-5 Slight 0729461050) hemolysis CL (test code = 111 mmol/L 98-108 H 7731303909) CO2 TOTAL (test code 15 mmol/L 23-31 L = 9887593121) AGAP (test code = 2-16 2340229398) BUN (test code = 24 mg/dL 7-23 H Slight 0700839355) hemolysis GLUCOSE (test code = 282 mg/dL 70-110 H 1644218538) CREATININE (test code 0.98 mg/dL 0.6-1.25 = 2234229277) CALCIUM (test code = 9.8 mg/dL 8.6-10.6 3921170415) eGFR Calculation mL/min/1.73m2 (Non-) (test code = 2482405091) eGFR Calculation mL/min/1.73m2 () (test code = 5994748805) AIDAN (test code = AIDAN) Association of Glomerular Filtration Rate (GFR) and Staging of Kidney Disease* + -----+ --------+ +| GFR (mL/min/1.73 m2) ?| With Kidney Damage ?| ?Without Kidney Damage+ +------- +---- --+| ?>90 ?| ?Stage one ?| ? Normal ?+ ------+ ---------+--------- +| ?60-89 ?| ?Stage two ?| ? Decreased GFR ? + -----+ --------+ +| ?30-59 ?| ?Stage three ?| ? Stage three ? + -----+ --------+ +| ?15-29 ?| ?Stage four ? | ? Stage four ?+ ------+ ---------+--------- +| ?<15 (or dialysis) ? ?| ?Stage five ? | ? Stage five ?+ ------+ ---------+--------- + *Each stage assumes the associated GFR level has been in effect for at least three months. ?Stages 1 to 5, with or without kidney disease, indicate chronic kidney disease. Notes: Determination of stages one and two (with eGFR >59mL/min/1.73 m2) requires estimation of kidney damage for at least three months as defined by structural or functional abnormalities of the kidney, manifested by either:Pathological abnormalities or Markers of kidney damage (including abnormalities in the composition of the blood or urine or abnormalities in imaging tests). Lab Interpretation Abnormal (test code = 92516-1) [facility] GLUCOSE (AUTOMATED)2019-09-10 04:34:00 Test Item Value Reference Range Interpretation Comments POCT GLU (test code = 0694307992) 277 mg/dL 70-110 H Lab Interpretation (test code = Abnormal 29437-7) [facility] GLUCOSE(AGE >30DAYS)2019-09-10 04:30:00 Test Item Value Reference Range Interpretation Comments POCT Glu (age>30days) (test code = 277 mg/dL 70-110 A 3342) Lab Interpretation (test code = Abnormal 36936-6) [facility] GLUCOSE (AUTOMATED)2019-09-10 03:14:00 Test Item Value Reference Range Interpretation Comments POCT GLU (test code = 5519317239) 323 mg/dL 70-110 H Lab Interpretation (test code = Abnormal 39341-0) [facility] GLUCOSE(AGE >30DAYS)2019-09-10 03:00:00 Test Item Value Reference Range Interpretation Comments POCT Glu (age>30days) (test code = 323 mg/dL 70-110 A 3342) Lab Interpretation (test code = Abnormal 92183-9) [facility]NA+K+GLU+CA2+2019-09-10 01:52:00 Test Item Value Reference Range Interpretation Comments PH (test code = 2) 7.35-7.45 LL PCO2 (test code = See_Comment L [Automate d message] 3550772563) The system [employer] generated this result transmit todd reference range : 35 - 45 mmHg. The reference range was not used to interpret this result as normal/abnormal . PO2 (test code = See_Comment H [Automated message] 9612123754) The system [employer] generated this result transmit todd reference range : 80 - 100 mmHg. The reference range was not used to interpret this result as normal/abnormal . HCO3 (test code = See_Comment L [Automate d message] 4887514756) The system [employer] generated this result transmit todd reference range : 22 - 26 mEq/L. The reference range was not used to interpret this result as normal/abnormal . BE (test code = See_Comment L [Automated message] 5114975315) The system [employer] generated this result transmit todd reference range : -3.0 - 3.0 mEq/ L. The reference r elvin was not used to interpret this result as normal/abnormal . THB (test code = 12.7 g/dL 13.5-18 L 8786328957) %O2HB (test code = 98.2 % 94-99 2197717634) %COHB ART (test code = 0.3 % 0-1.5 9828379236) %METHB ART (test code = 0.2 % 0.4-1.5 L 4109940645) VOL%O2 ART (test code = 18.1 % 15-23 4892848413) NA (test code = 137 mmol/L 135-145 1504960252) K+ (test code = 4.3 mmol/L 3.5-5 8306081623) AC CA IONZ (test code = 5.50 mg/dL 4.5-5.3 H 7402970285) GLUCOSE (test code = 394 mg/dL 70-110 H 7527783818) Lab Interpretation Abnormal (test code = 17975-8) [facility] [id number] 01:39:32 Right common femoral vein central venous catheter tip projects over theright sacral tuan (presumably in the right common iliac vein). Preliminary Report Dictated by Resident: Nasrin Garcia MD., have reviewed this study and agree with theabove report.EXAM: XR KUB COMPARISON: None available. TECHNIQUE: Two AP radiographs of the abdomen were obtained. HISTORY: right femoral CVC placement confirmation FINDINGS: A right common femoral approach central venous catheter projects over theright sacral tuan, presumably within the right common iliac artery. Relative paucity of small bowel gas. No abnormal calcifications or radiopaque stones are identified. A Casanova catheter overlies the pelvis. [facility], Radiant Results Inft User - 09/09/2019 7:40 PM CSTEXAM: XR KUBCOMPARISON: None available.TECHNIQUE: Two AP radiographs of the abdomen were obtained.HISTORY: right femoral CVC placement confirmation FINDINGS:A right common femoral approach central venous catheter projects over theright sacral tuan, presumably within the right common iliac artery.Relative paucity of small bowel gas.No abn ormal calcifications or radiopaque stones are identified.A Casanova catheter overlies the pelvis.IMPRESSIONRight common femoral vein central venous catheter tip projects over theright sacral tuan (presumably in the right common iliac vein).Preliminary Report Dictated by Resident: Nasrin Mendoza MD., have reviewed this study and agree with theabove report. [facility] (Na, K, Cl, CO2, Glucose, BUN, Creatinine, Ca)2019-09-10 01:14:00 Test Item Value Reference Range Interpretation Comments NA (test code = 139 mmol/L 135-145 5712975150) K (test code = 4.1 mmol/L 3.5-5 2516336296) CL (test code = 107 mmol/L 98-108 8750967501) CO2 TOTAL (test code = 11 mmol/L 23-31 L 8639292563) AGAP (test code = 2-16 H 2290295619) BUN (test code = 22 mg/dL 7-23 8339986271) GLUCOSE (test code = 439 mg/dL 70-110 H 5745847016) CREATININE (test code = 1.04 mg/dL 0.6-1.25 0325348571) CALCIUM (test code = 9.6 mg/dL 8.6-10.6 3581672585) eGFR Calculation mL/min/1.73m2 (Non-) (test code = 2162570176) eGFR Calculation mL/min/1.73m2 () (test code = 8049994391) AIDAN (test code = AIDAN) Association of Glomerular Filtration Rate (GFR) and Staging of Kidney Disease* + --+ --+ ------+| GFR (mL/min/1.73 m2) ?| With Kidney Damage ?| ?Without Kidney Damage+ --------+ --------+ +| ?>90 ?| ?Stage one ?| ? Normal ?+ ---+ ---+ -------+| ?60-89 ?| ?Stage two ?| ? Decreased GFR ? + --+ --+ ------+| ?30-59 ?| ?Stage three ?| ? Stage three ? + --+ --+ ------+| ?15-29 ?| ?Stage four ? | ? Stage four ?+ ---+ ---+ -------+| ?<15 (or dialysis) ? ?| ?Stage five ? | ? Stage five ?+ ---+ ---+ -------+ *Each stage assumes the associated GFR level has been in effect for at least three months. ?Stages 1 to 5, with or without kidney disease, indicate chronic kidney disease. Notes: Determination of stages one and two (with eGFR >59mL/min/1.73 m2) requires estimation of kidney damage for at least three months as defined by structural or functional abnormalities of the kidney, manifested by either:Pathological abnormalities or Markers of kidney damage (including abnormalities in the composition of the blood or urine or abnormalities in imaging tests). Lab Interpretation Abnormal (test code = 16983-0) [facility]2019-09-10 00:33:00 Test Item Value Reference Range Interpretation Comments POCT GLU (test code = 3532524367) 417 mg/dL 70-110 H Lab Interpretation (test code = Abnormal 18055-6) [facility] [id number] 00:04:00 Test Item Value Reference Range Interpretation Comments TROPONIN I (test 0.058 ng/mL See_Comment H [Automated code = 7793468899) message] The system which generated this result transmitted reference range : <=0.034. The reference range was not used to interpret this result as normal/abnormal . AIDAN (test code = Equal or Less than AIDAN) 0.034 ng/ml---Normal ?Note: Cardiac troponin begins to rise 3-4 hours after the onset of ischemia. Repeat in 4-6 hours if the sample was drawn within 3-4 hours of the onset of the symptom and found normal. Between 0.035 and 0.120 ng/mL--- Borderline. Questionable myocardial injury or necrosis ? ?Note: Serial measurement may be necessary to confirm or exclude the diagnosis of myocardial injury or necrosis; Clinical correlation (symptoms, EKGs, imaging studies, and others) required; Repeat in 4-6 hours if clinically indicated. ? Equal or Higher than 0.121 ng/mL---Abnormal. Myocardial Injury or Necrosis Likely ? Biotin has been reported to cause a negative bias, interpret results relative to patient's use of biotin. ? Lab Interpretation Abnormal (test code = 28633-0) [facility] CHEST 1 [id number] 00:00:57 Tip of the endotracheal tube projects 3.2 cm above the krystyna. Esophogastric tube tip projects overthe stomach fundus with its side portprojecting a few centimeters past the GE junction within the stomach lumen. Preliminary Report Dictated by Resident: Nasrin Garcia MD., havereviewed this study and agree with theabove report.EXAM: XR CHEST 1 VW COMPARISON: Multiple chest rad iographs and back to 01/08/2019 HISTORY: intubatioon FINDINGS: Lines/Tubes: Tip of the endotracheal tube projects 3.2 cm from the krystyna. Lungs: The lungs are clear. No pleural effusion or pneumothorax isidentified. Heart/Mediastinum: The cardiomediastinal silhouette is normal in size. Bones: No acute osseous abnormality is seen. No acute rib fracture withinlimits of single AP exam. Defibrillator padsproject over the left chest. [facility], Radiant Results Inft User - 09/09/2019 6:02 PM CSTEXAM: XR CHEST 1 VWCOMPARISON: Multiple chest radiographs and back to 01/08/2019HISTORY: intubatioon FINDINGS:Lines/Tubes: Tip of the endotracheal tube projects 3.2 cm from the krystyna.Lungs: The lungs are clear. No pleural effusion or pneumothorax isidentified.Heart/Mediastinum: The cardiomediastinal silhouette is normal in size.Bones: No acute osseous abnormality is seen. No acute rib fracture withinlimits of singleAP exam.Defibrillator pads project over the left chest.IMPRESSIONTip of the endotracheal tube projects 3.2 cm above the krystyna. Esophogastric tube tip projects over the stomach fundus with its side portprojecting a few centimeters past the GE junction within the stomach lumen.Preliminary Report Dictated by Resident: Nasrin Mendoza MD., have reviewed this study and agree with theabove report.[facility] Ybdsspudmbf-[id number] 23:40:00 Test Item Value Reference Range Interpretation Comments BOH (test code = >9.0 mmol/L 6721686698) AIDAN (test code = Normal Ranges: ? ? AIDAN) Nonfasting ? Less than 0.1 mmol/L ? ? Overnight Fast ? ? ? Less than 0.4 mmol/L ? ? Fasting (1-2 weeks) ?6-8 mmol/L Test developed and characteristics determined by [facility] Laboratory Services. [facility] Whole [id number] 23:36:00 Test Item Value Reference Range Interpretation Comments LACTIC ACID (test code = 2.71 mmol/L 0.5-2.2 H 5200745359) Lab Interpretation (test code = Abnormal 73935-9) [facility] (AUTOMATED)2019-09-09 23:24:00 Test Item Value Reference Range Interpretation Comments POCT GLU (test code = 9069757179) 482 mg/dL 70-110 HH Lab Interpretation (test code = Abnormal 85820-2) [facility]Glycosylated Hemoglobin (A1C)2019-09-09 23:08:00 Test Item Value Reference Range Interpretation Comments HGB A1C (test code = 4548-4) 10.0 % 4-6 H Lab Interpretation (test code = Abnormal 27985-6) [facility]ABG+COOX+NA+K+GLU+CA2+2019-09-09 22:49:00 Test Item Value Reference Range Interpretation Comments PH (test code = 2) 7.35-7.45 LL PCO2 (test code = See_Comment L [Automate d message] 0513757890) The system [employer] generated this result transmit todd reference range : 35 - 45 mmHg. The reference range was not used to interpret this result as normal/abnormal . PO2 (test code = See_Comment H [Automated message] 0482961317) The system [employer] generated this result transmit todd reference range : 80 - 100 mmHg. The reference range was not used to interpret this result as normal/abnormal . HCO3 (test code = See_Comment L [Automate d message] 4250383548) The system [employer] generated this result transmit todd reference range : 22 - 26 mEq/L. The reference range was not used to interpret this result as normal/abnormal . BE (test code = See_Comment L [Automated message] 1286783572) The system [employer] generated this result transmit todd reference range : -3.0 - 3.0 mEq/ L. The reference r elvin was not used to interpret this result as normal/abnormal . THB (test code = 13.6 g/dL 13.5-18 1872711137) %O2HB (test code = 96.9 % 94-99 9917783084) %COHB ART (test code = 0.3 % 0-1.5 4780205052) %METHB ART (test code = 0.3 % 0.4-1.5 L 9819427171) VOL%O2 ART (test code = 18.8 % 15-23 7737883477) NA (test code = 138 mmol/L 135-145 7695417034) K+ (test code = 4.2 mmol/L 3.5-5 7980565348) AC CA IONZ (test code = 5.70 mg/dL 4.5-5.3 H 6517294927) GLUCOSE (test code = 543 mg/dL 70-110 HH 8418804795) Lab Interpretation Abnormal (test code = 21542-5) [facility] Metabolic Panel (Na, K, Cl, CO2, Glucose, BUN, Creatinine, Ca)2019-09-09 22:48:00 Test Item Value Reference Range Interpretation Comments NA (test code = 134 mmol/L 135-145 L 0030330935) K (test code = 6.4 mmol/L 3.5-5 HH 7533976902) CL (test code = 101 mmol/L 98-108 5330175003) CO2 TOTAL (test code = 9 mmol/L 23-31 L 3695350594) AGAP (test code = 2-16 H 1060180862) BUN (test code = 23 mg/dL 7-23 4125405432) GLUCOSE (test code = 653 mg/dL 70-110 HH 7266669480) CREATININE (test code = 1.14 mg/dL 0.6-1.25 3629952893) CALCIUM (test code = 8.6 mg/dL 8.6-10.6 8407836833) eGFR Calculation mL/min/1.73m2 (Non-) (test code = 7667176137) eGFR Calculation mL/min/1.73m2 () (test code = 6640735582) AIDAN (test code = AIDAN) Association of Glomerular Filtration Rate (GFR) and Staging of Kidney Disease* + --+ --+ ------+| GFR (mL/min/1.73 m2) ?| With Kidney Damage ?| ?Without Kidney Damage+ --------+ --------+ +| ?>90 ?| ?Stage one ?| ? Normal ?+ ---+ ---+ -------+| ?60-89 ?| ?Stage two ?| ? Decreased GFR ? + --+ --+ ------+| ?30-59 ?| ?Stage three ?| ? Stage three ? + --+ --+ ------+| ?15-29 ?| ?Stage four ? | ? Stage four ?+ ---+ ---+ -------+| ?<15 (or dialysis) ? ?| ?Stage five ? | ? Stage five ?+ ---+ ---+ -------+ *Each stage assumes the associated GFR level has been in effect for at least three months. ?Stages 1 to 5, with or without kidney disease, indicate chronic kidney disease. Notes: Determination of stages one and two (with eGFR >59mL/min/1.73 m2) requires estimation of kidney damage for at least three months as defined by structural or functional abnormalities of the kidney, manifested by either:Pathological abnormalities or Markers of kidney damage (including abnormalities in the composition of the blood or urine or abnormalities in imaging tests). Lab Interpretation Abnormal (test code = 14922-8) [facility] SouthOsmolality [id number] 22:35:00 Test Item Value Reference Range Interpretation Comments OSMOLALITY (test code = See_Comment HH [Au tomated message] 5022497847) The system [employer] generated this result transmitted ref erence range: 278 - 30 5 mOsm/kg. The reference range was not used to int erpret this result as normal/abnormal . Lab Interpretation (test Abnormal code = 12502-2) [facility] SouthMagnesium [id number] 22:34:00 Test Item Value Reference Range Interpretation Comments MAGNESIUM (test code = 0657748599) 2.1 mg/dL 1.7-2.4 Lab Interpretation (test code = Normal 87314-0) [facility] SouthPhosphorus [id number] 22:34:00 Test Item Value Reference Range Interpretation Comments PHOSPHORUS (test code = 5174811982) 6.6 mg/dL 2.5-5 H Lab Interpretation (test code = Abnormal 38124-8) [facility]XR CHEST 1 [id number] 22:27:15 No acute cardiopulmonary abnormality. Preliminary Report Dictated by Resident: Ndy C Mckinley Zarate MD., have reviewed this study and agree with the abovereport.EXAM: XR CHEST 1 VW COMPARISON: Multiple chest radiographs and back to 01/08/2019 HISTORY: shortness of breath, history of CAD,ho ischemic CM FINDINGS: Lines/Tubes: None. Lungs: The lungs are clear. No pleural effusion or pneumothorax isidentified. Heart/Mediastinum: The cardiomediastinal silhouette is normal in size. Bones: No acute osseous abnormality is seen. [facility], Radiant Results Inft User - 09/09/2019 4:28 PM CSTEXAM: XRCHEST 1 VWCOMPARISON: Multiple chest radiographs and back to 01/08/2019HISTORY: shortness of breath, history of CAD, ho ischemic CM FINDINGS:Lines/Tubes: None.Lungs: The lungs are clear. No pleural effusion or pneumothorax isidentified.Heart/Mediastinum: The cardiomediastinal silhouette is normal in size.Bones: No acute osseous abnormality is seen.IMPRESSIONNo acute cardiopulmonary abnormality.Preliminary Report Dictated by Resident: Mckinley Mendoza MD., have reviewed this study and agree with the abovereport.[facility] Lsmxoxzunv5947-33-08 22:20:00 Test Item Value Reference Range Interpretation Comments APPEARANCE (test code = Clear Clear 0734923927) COLOR (test code = Straw Yellow A 7820211820) PH (test code = 4.8-8.0 4098892947) SP GRAVITY (test code = 1.003-1.030 9209536455) GLU U QUAL (test code = 500 mg/dL Normal A 0737785725) BLOOD (test code = Negative Negative 9105935685) KETONES (test code = 80 mg/dL Negative A 6629100084) PROTEIN (test code = Negative Negative 2887-8) UROBILIN (test code = Normal Normal 8991373041) BILIRUBIN (test code = Negative Negative 9688097546) NITRITE (test code = Negative Negative 8096564956) LEUK SHEN (test code = Negative Negative 3784085243) RBC/HPF (test code = See_Comment [Autom ated message] 6067314534) The system [employer] generated this result transmit todd reference range : 0 - 3 HPF. The refe rence range was not u sed to interpret th is result as normal/abnormal . WBC/HPF (test code = See_Comment [Autom ated message] 6991845785) The system [employer] generated this result transmit todd reference range : 0 - 5 HPF. The refe rence range was not u sed to interpret th is result as normal/abnormal . BACTERIA (test code = Negative Negative 9536335992) MUCOUS (test code = Slight Negative LPF A 8457203842) SQ EPITH (test code = <1 See_Comment [Auto mated message] 1328471345) The system [employer] generated this result transmit todd reference range : <=2 HPF. The refere nce range was not u sed to interpret th is result as normal/abnormal . Lab Interpretation (test Abnormal code = 84094-8) [facility]PORI GLUCOSE(AGE >30DAYS)2019-09-09 22:10:00 Test Item Value Reference Range Interpretation Comments POCT Glu (age>30days) (test code = HI 70-110 3342) Lab Interpretation (test code = Normal 07319-3) [facility]. METABOLIC PANEL ([id number])2019-09-09 21:15:00 Test Item Value Reference Range Interpretation Comments NA (test code = 135 mmol/L 135-145 7963957147) K (test code = 6.5 mmol/L 3.5-5 HH Slight 0190849471) hemolysis CL (test code = 91 mmol/L 98-108 L 5402883350) CO2 TOTAL (test code 6 mmol/L 23-31 L = 2180832894) AGAP (test code = 2-16 H 0784268961) BUN (test code = 23 mg/dL 7-23 Slight 4191491749) hemolysis GLUCOSE (test code = 730 mg/dL 70-110 HH 0246030874) CREATININE (test code 1.33 mg/dL 0.6-1.25 H = 5468955389) TOTAL BILI (test code 0.8 mg/dL 0.1-1.1 = 1232354910) CALCIUM (test code = 10.8 mg/dL 8.6-10.6 H 5398003013) T PROTEIN (test code 8.7 g/dL 6.3-8.2 H = 3096076264) ALBUMIN (test code = 5.5 g/dL 3.5-5 H 7464903617) ALK PHOS (test code = 139 U/L 34-122 H Slight 9332128443) hemolysis ALTv (test code = 29 U/L 5-50 1742-6) AST(SGOT) (test code 34 U/L 13-40 Slight = 7002158552) hemolysis eGFR Calculation mL/min/1.73m2 (Non-) (test code = 2320773153) eGFR Calculation mL/min/1.73m2 () (test code = 0902796893) AIDAN (test code = AIDAN) Association of Glomerular Filtration Rate (GFR) and Staging of Kidney Disease* + -----+ --------+ +| GFR (mL/min/1.73 m2) ?| With Kidney Damage ?| ?Without Kidney Damage+ +------- +---- --+| ?>90 ?| ?Stage one ?| ? Normal ?+ ------+ ---------+--------- +| ?60-89 ?| ?Stage two ?| ? Decreased GFR ? + -----+ --------+ +| ?30-59 ?| ?Stage three ?| ? Stage three ? + -----+ --------+ +| ?15-29 ?| ?Stage four ? | ? Stage four ?+ ------+ ---------+--------- +| ?<15 (or dialysis) ? ?| ?Stage five ? | ? Stage five ?+ ------+ ---------+--------- + *Each stage assumes the associated GFR level has been in effect for at least three months. ?Stages 1 to 5, with or without kidney disease, indicate chronic kidney disease. Notes: Determination of stages one and two (with eGFR >59mL/min/1.73 m2) requires estimation of kidney damage for at least three months as defined by structural or functional abnormalities of the kidney, manifested by either:Pathological abnormalities or Markers of kidney damage (including abnormalities in the composition of the blood or urine or abnormalities in imaging tests). Lab Interpretation Abnormal (test code = 84770-2) [facility] GLUCOSE(AGE >30DAYS)2019-09-09 21:14:00 Test Item Value Reference Range Interpretation Comments POCT Glu (age>30days) (test code = [place] 09-147 6845) Lab Interpretation (test code = Normal 43695-5) [facility] SouthL[facility] Acid Whole [id number] 21:06:00 Test Item Value Reference Range Interpretation Comments LACTIC ACID (test code = 3.15 mmol/L 0.5-2.2 H 1126081899) Lab Interpretation (test code = Abnormal 28011-2) [facility]+COOX+NA+K+GLU+CA2+2019-09-09 21:05:00 Test Item Value Reference Range Interpretation Comments PH (test code = 2) 7.35-7.45 LL PCO2 (test code = See_Comment L [Automate d message] 2464462477) The system [employer] generated this result transmit todd reference range : 35 - 45 mmHg. The reference range was not used to interpret this result as normal/abnormal . PO2 (test code = See_Comment H [Automated message] 4057414888) The system [employer] generated this result transmit todd reference range : 80 - 100 mmHg. The reference range was not used to interpret this result as normal/abnormal . HCO3 (test code = See_Comment L [Automate d message] 3084199672) The system [employer] generated this result transmit todd reference range : 22 - 26 mEq/L. The reference range was not used to interpret this result as normal/abnormal . BE (test code = See_Comment L [Automated message] 2810711138) The system [employer] generated this result transmit todd reference range : -3.0 - 3.0 mEq/ L. The reference r elvin was not used to interpret this result as normal/abnormal . THB (test code = 14.5 g/dL 13.5-18 3993873261) %O2HB (test code = 97.1 % 94-99 8408943413) %COHB ART (test code = 0.3 % 0-1.5 5655130687) %METHB ART (test code = 0.3 % 0.4-1.5 L 8997297532) VOL%O2 ART (test code = 20.0 % 15-23 2837642140) NA (test code = 129 mmol/L 135-145 L 3042829969) K+ (test code = 6.2 mmol/L 3.5-5 HH 7095828964) AC CA IONZ (test code = 5.10 mg/dL 4.5-5.3 6792583533) GLUCOSE (test code = <20 70-110 LL 6507219699) Lab Interpretation Abnormal (test code = 98428-4) [facility] WITH [id number] 20:40:00 Test Item Value Reference Range Interpretation Comments WBC (test code = See_Comment H [Automated 6690-2) message] The system which generated this result transmit todd reference range : 4.20 - 10.70 10*3/?L. The reference range was not used to interpret this result as normal/abnormal . RBC (test code = See_Comment [Automated 789-8) message] The system which generated this result transmit todd reference range : 4.26 - 5.52 10*6/?L. The reference range was not used to interpret this result as normal/abnormal . HGB (test code = 14.7 g/dL 12.2-16.4 718-7) HCT (test code = 45.5 % 38.4-49.3 4544-3) MCV (test code = 91.4 fL 81.7-95.6 787-2) MCH (test code = 29.5 pg 26.1-32.7 785-6) MCHC (test code = 32.3 g/dL 31.2-35 786-4) RDW-SD (test code = 44.7 fL 38.5-51.6 22494-4) RDW-CV (test code = 13.5 % 12.1-15.4 788-0) PLT (test code = See_Comment H [Automated 777-3) message] The system which generated this result transmit todd reference range : 150 - 328 10*3/ ?L. The reference range was not u sed to interpret th is result as normal/abnormal . MPV (test code = 9.4 fL 9.8-13 L 97602-6) NRBC/100 WBC (test See_Comment [Automat ed code = 9063881137) message] The system which generated this result transmit todd reference range : 0.0 - 10.0 /100 WBCs. The reference range was not used to interpret this result as normal/abnormal . NRBC x10^3 (test code <0.01 See_Comment [Auto mated = 9738179488) message] The system which generated this result transmit todd reference range : 10*3/?L. The reference range was not used to interpret this result as normal/abnormal . GRAN MAT (NEUT) % 82.3 % (test code = 770-8) IMM GRAN % (test code 1.50 % = 5806589716) LYMPH % (test code = 9.2 % 736-9) MONO % (test code = 6.3 % 5905-5) EOS % (test code = 0.2 % 713-8) BASO % (test code = 0.5 % 706-2) GRAN MAT x10^3(ANC) 21.88 10*3/uL 1.99-6.95 H (test code = 4461298067) IMM GRAN x10^3 (test 0.41 10*3/uL 0-0.06 H code = 5351386824) LYMPH x10^3 (test code 2.44 10*3/uL 1.09-3.23 = 731-0) MONO x10^3 (test code 1.67 10*3/uL 0.36-1.02 H = 742-7) EOS x10^3 (test code = 0.04 10*3/uL 0.06-0.53 L 711-2) BASO x10^3 (test code 0.12 10*3/uL 0.01-0.09 H = 704-7) COURTNEY CELLS (test code 3+ See_Comment A [Auto mated = 5832-9) message] The system which generated this result transmit todd reference range : (none). The reference range was not used to interpret this result as normal/abnormal . BANDS (test code = Increased A 2966047633) Lab Interpretation Abnormal (test code = 14828-1) [facility] [id number] 20:31:00 Test Item Value Reference Range Interpretation Comments TROPONIN I (test 0.063 ng/mL See_Comment H [Automated code = 8847001924) message] The system which generated this result transmitted reference range : <=0.034. The reference range was not used to interpret this result as normal/abnormal . AIDAN (test code = Equal or Less than AIDAN) 0.034 ng/ml---Normal ?Note: Cardiac troponin begins to rise 3-4 hours after the onset of ischemia. Repeat in 4-6 hours if the sample was drawn within 3-4 hours of the onset of the symptom and found normal. Between 0.035 and 0.120 ng/mL--- Borderline. Questionable myocardial injury or necrosis ? ?Note: Serial measurement may be necessary to confirm or exclude the diagnosis of myocardial injury or necrosis; Clinical correlation (symptoms, EKGs, imaging studies, and others) required; Repeat in 4-6 hours if clinically indicated. ? Equal or Higher than 0.121 ng/mL---Abnormal. Myocardial Injury or Necrosis Likely ? Biotin has been reported to cause a negative bias, interpret results relative to patient's use of biotin. ? Lab Interpretation Abnormal (test code = 84651-5) [facility]-TERMINAL [id number] 20:31:00 Test Item Value Reference Range Interpretation Comments NT-proBNP (test code 267 pg/mL See_Comment H Hemolyz ed = 1846257778) specimen [Automated message] The system which generated this result transmitted reference range : <=125. The reference range was not used to interpret this result as normal/abnormal . AIDAN (test code = AIDAN) Biotin has been reported to cause a negative bias, interpret results relative to patient's use of biotin. Lab Interpretation Abnormal (test code = 57405-4) [facility]TROPONIN [id number] 11:26:00 Test Item Value Reference Range Interpretation Comments TROPONIN I (test 0.004 ng/mL See_Comment [Automated code = 2310256223) message] The system which generated this result transmitted reference range : <=0.034. The reference range was not used to interpret this result as normal/abnormal . AIDAN (test code = Equal or Less than AIDAN) 0.034 ng/ml---Normal ?Note: Cardiac troponin begins to rise 3-4 hours after the onset of ischemia. Repeat in 4-6 hours if the sample was drawn within 3-4 hours of the onset of the symptom and found normal. Between 0.035 and 0.120 ng/mL--- Borderline. Questionable myocardial injury or necrosis ? ?Note: Serial measurement may be necessary to confirm or exclude the diagnosis of myocardial injury or necrosis; Clinical correlation (symptoms, EKGs, imaging studies, and others) required; Repeat in 4-6 hours if clinically indicated. ? Equal or Higher than 0.121 ng/mL---Abnormal. Myocardial Injury or Necrosis Likely ? Biotin has been reported to cause a negative bias, interpret results relative to patient's use of biotin. ? Lab Interpretation Normal (test code = 45299-0) [facility]. METABOLIC PANEL (71881)2019-08-17 11:14:00 Test Item Value Reference Range Interpretation Comments NA (test code = 138 mmol/L 135-145 4801892830) K (test code = 4.6 mmol/L 3.5-5 9099591943) CL (test code = 98 mmol/L 98-108 1269139428) CO2 TOTAL (test code = 29 mmol/L 23-31 5909547269) AGAP (test code = 2-16 0945951721) BUN (test code = 12 mg/dL 7-23 1764197834) GLUCOSE (test code = 319 mg/dL 70-110 H 0750045970) CREATININE (test code = 0.71 mg/dL 0.6-1.25 3272895942) TOTAL BILI (test code = 0.5 mg/dL 0.1-1.3 7448144906) CALCIUM (test code = 10.1 mg/dL 8.6-10.6 8520380235) T PROTEIN (test code = 8.7 g/dL 6.3-8.2 H 2163322232) ALBUMIN (test code = 5.0 g/dL 3.5-5 6260305271) ALK PHOS (test code = 126 U/L 34-122 H 9279304200) ALTv (test code = 22 U/L 5-50 2-6) AST(SGOT) (test code = 26 U/L 13-40 3893218080) eGFR Calculation mL/min/1.73m2 (Non-) (test code = 0703755688) eGFR Calculation mL/min/1.73m2 () (test code = 6412229809) AIDAN (test code = AIDAN) Association of Glomerular Filtration Rate (GFR) and Staging of Kidney Disease* + --+ --+ ------+| GFR (mL/min/1.73 m2) ?| With Kidney Damage ?| ?Without Kidney Damage+ --------+ --------+ +| ?>90 ?| ?Stage one ?| ? Normal ?+ ---+ ---+ -------+| ?60-89 ?| ?Stage two ?| ? Decreased GFR ? + --+ --+ ------+| ?30-59 ?| ?Stage three ?| ? Stage three ? + --+ --+ ------+| ?15-29 ?| ?Stage four ? | ? Stage four ?+ ---+ ---+ -------+| ?<15 (or dialysis) ? ?| ?Stage five ? | ? Stage five ?+ ---+ ---+ -------+ *Each stage assumes the associated GFR level has been in effect for at least three months. ?Stages 1 to 5, with or without kidney disease, indicate chronic kidney disease. Notes: Determination of stages one and two (with eGFR >59mL/min/1.73 m2) requires estimation of kidney damage for at least three months as defined by structural or functional abnormalities of the kidney, manifested by either:Pathological abnormalities or Markers of kidney damage (including abnormalities in the composition of the blood or urine or abnormalities in imaging tests). Lab Interpretation Abnormal (test code = 49807-9) [facility]IPASE2020[facility] 11:14:00 Test Item Value Reference Range Interpretation Comments LIPASE (test code = 6931331572) 96 U/L 0-220 Lab Interpretation (test code = Normal 38717-6) [facility] SouthPROTHROMBIN TIME / [id number] 11:11:00 Test Item Value Reference Range Interpretation Comments PROTIME PATIENT (test See_Comment L [Auto mated message] code = 5964-2) The system [employer] generated this result transmitted ref erence range: 12.0 - 1 4.7 Seconds. The reference range was not used to int erpret this result as normal/abnormal . INR (test code = 6301-6) Nor mal INR <1.1; Warfarin Therap eutic range 2.0 to 3. 0 or 2.5 to 3.5, dep ending upon the indica tions. Lab Interpretation (test Abnormal code = 81377-2) [facility] WITH [id number] 11:02:00 Test Item Value Reference Range Interpretation Comments WBC (test code = See_Comment H [Automated 1690-2) message] The sy stem which generated this result transmitted reference range : 4.20 - 10.70 10*3/?L. The reference range was not used to interpret this result as normal/abnormal . RBC (test code = See_Comment [Automated 789-8) message] The sy stem which generated this result transmitted reference range : 4.26 - 5.52 10*6/?L. The reference range was not used to interpret this result as normal/abnormal . HGB (test code = 14.5 g/dL 12.2-16.4 718-7) HCT (test code = 44.0 % 38.4-49.3 4544-3) MCV (test code = 90.3 fL 81.7-95.6 787-2) MCH (test code = 29.8 pg 26.1-32.7 785-6) MCHC (test code = 33.0 g/dL 31.2-35 786-4) RDW-SD (test code = 42.9 fL 38.5-51.6 42477-0) RDW-CV (test code = 13.1 % 12.1-15.4 788-0) PLT (test code = See_Comment H [Automated 777-3) message] The sy stem which generated this result transmitted reference range : 150 - 328 10*3/ ?L. The reference r elvin was not used to interpret this result as normal/abnormal . MPV (test code = 8.9 fL 9.8-13 L 59138-9) NRBC/100 WBC (test See_Comment [Automat ed code = 5728994294) message] The system which generated this result transmitted reference range : 0.0 - 10.0 /100 WBCs. The refer ence range was not u sed to interpret th is result as normal/abnormal . NRBC x10^3 (test code <0.01 See_Comment [Auto mated = 0428164500) message] The s ystem which generated this result transmitted reference range : 10*3/?L. The reference range was not used to interpret this result as normal/abnormal . GRAN MAT (NEUT) % 76.7 % (test code = 770-8) IMM GRAN % (test code 0.70 % = 5586576582) LYMPH % (test code = 13.1 % 736-9) MONO % (test code = 5.7 % 5905-5) EOS % (test code = 3.2 % 713-8) BASO % (test code = 0.6 % 706-2) GRAN MAT x10^3(ANC) 9.50 10*3/uL 1.99-6.95 H (test code = 4503391565) IMM GRAN x10^3 (test 0.09 10*3/uL 0-0.06 H code = 0252917496) LYMPH x10^3 (test code 1.62 10*3/uL 1.09-3.23 = 731-0) MONO x10^3 (test code 0.71 10*3/uL 0.36-1.02 = 742-7) EOS x10^3 (test code = 0.40 10*3/uL 0.06-0.53 711-2) BASO x10^3 (test code 0.07 10*3/uL 0.01-0.09 = 704-7) Lab Interpretation Abnormal (test code = 45244-6) [facility] 1 [id number] 10:46:55No acute cardiopulmonary disease RL: [id number] AFC: [id number] End of report ORDERING CLINICIAN: DU BESS TECHNIQUE: Single view of the chest INDICATION: Chest pain COMPARISON: None DISCUSSION: The lungs are clear. The cardiac silhouette is within normal limits. The airway is midline. The mediastinal contour is normal. [facility], Radiant Results Inft User - 08/17/2019 4:49 AM CSTORDERING CLINICIAN: DU DUKECHNIQUE: Single view of the chestINDICATION: Chest painCOMPARISON: NoneDISCUSSION: The lungs are clear. The cardiac silhouette is within normal limits.The airway is midline. The mediastinal contour is normal.IMPRESSIONNo acute cardiopulmonary diseaseRL: [id number]: [id number] of report [facility]
[2022-03-02] MEDS ORDERED: DEXTROSE 10%-WATER 500 ML IV ONE (22:15)
[2022-03-02] MEDS ORDERED: DEXTROSE ORAL 40% 15 GM TUBE ONE (22:16)
[2022-03-02] MEDS ORDERED: NA CHLORIDE 0.9% 500 ML ONE (22:31)
[2022-03-02 22:41] LABS: Arterial Blood Carboxyhemoglob 3.6 % (0-1.5); Blood Gas Oxyhemoglobin 94.4 % (94-97); Blood O2 Saturation 99.2 % (92-98.5)
[2022-03-02 22:43] LABS: Absolute Lymphocytes (CBC) 2.4 K/uL (0.7-4.9); Hematocrit 46.2 % (39.6-49.0); Lymphocytes % 17.3 % (15.3-44.8); MCV 89.5 fL (80-100); MPV 7.5 fL (7.6-11.3); RBC Red Blood Cell Count 5.16 M/uL (4.33-5.43)
[2022-03-02 23:06] LABS: Urine Blood Negative (Negative); Urine Glucose 2+ (Negative); Urine Protein Negative (Negative); Urine Specific Gravity 1.025 (1.005-1.030); Urine pH 5.5 (5.0-7.0)
[2022-03-02 23:22] LABS: Albumin 4.4 g/dL (3.4-5.0); Bilirubin Direct 0.1 mg/dL (0-0.2); Bilirubin Total 0.5 mg/dL (0.2-1.0); Potassium 4.6 mmol/L (3.5-5.1); Protein, Total 8.3 g/dL (6.4-8.2); Troponin High Sensitivity 4.5 pg/mL (<58.9)
[2022-03-02 23:34] LABS: Urine Bacteria <20 /HPF (<20); Urine RBC <5 /HPF (None Seen)
--- NOTE | 2022-03-03 01:05 | ER ---
Nurse's Notes [facility] Name: Nick Elizondo II Age: 56 yrs Sex: Male : 1965 Arrival Date: 03/02/2022 Time: 22:05 Bed 18 Private MD: Diagnosis: Hypoglycemia, unspecified;Facial discoloration Presentation: 03/02 22:07 Chief complaint: EMS states: they were toned out by [employer] employees who found pt in bb his car after appropx 2 hours and reported pt did not look well. Coronavirus screen: Client presents with at least one sign or symptom that may indicate coronavirus-19. Ebola Screen: No symptoms or risks identified at this time. Initial Sepsis Screen: Does the patient meet any 2 criteria? RR > 20 per min. HR > 90 bpm. Yes Does the patient have a suspected source of infection? Yes: Other: unknown. Risk Assessment: Do you want to hurt yourself or someone else? Patient reports no desire to harm self or others. Onset of symptoms was March 02, 2022. 22:07 Method Of Arrival: EMS: [facility] bb 22:07 Acuity: EMMA 2 bb Historical: - Allergies: 22:09 No Known Allergies; bb - PMHx: 22:09 Diabetes - IDDM; bb Screenin/09 01:17 Abuse screen: Denies threats or abuse. Nutritional screening: No deficits noted. ll3 Tuberculosis screening: No symptoms or risk factors identified. Fall Risk None identified. Assessment: 03/02 22:20 General: Appears distressed, Butler. Behavior is calm, cooperative. Pain: Denies pain. ll3 Neuro: Level of Consciousness is awake, alert, obeys commands, Oriented to person, place, time, situation. Respiratory: Respiratory effort is labored, Respiratory pattern is hyperventilation. Derm: Skin is diaphoretic, Skin is dusky, Butler. 03/03 00:33 Reassessment: No changes from previously documented assessment. Patient and/or family ll3 updated on plan of care and expected duration. Pain level reassessed. Patient is alert, oriented x 3, equal unlabored respirations, skin warm/dry/pink. Vital Signs: 03/02 22:07 BP 173 / 96; Pulse 135; Resp 24 S; Pulse Ox 100% on 15% Non-rebreather mask; Weight bb 68.04 kg (R); Height 5 ft. 4 in. (162.56 cm) (R); 22:50 BP 152 / 75; Pulse 97; Resp 15; Pulse Ox 100% on R/A; ll3 08 00:33 BP 147 / 77; Pulse 81; Resp 10; Pulse Ox 100% on R/A; ll3 03/02 22:07 Body Mass Index 25.75 (68.04 kg, 162.56 cm) ED Course: 03/02 22:05 Patient arrived in ED. wm 22:09 Triage completed. bb 22:09 Arm band placed on Patient placed in an exam room, on a stretcher, on oxygen, on bb sap abap developer, on pulse oximetry. 22:15 Nikki Izquierdo MD is Attending Physician. sd2 22:26 XRAY Chest (1 view) In Process Unspecified. EDMS 22:50 Pricilla Welch, ELSA is Primary Nurse. ll3 23:25 Notified ED physician of a critical lab result(s). glucose 48 Dr Izquierdo notified. bb 03/03 00:55 EKG done, by ED staff, reviewed by Nikki Izquierdo MD. ll3 01:17 Patient has correct armband on for positive identification. Bed in low position. Call ll3 light in reach. Side rails up X 1. 01:17 No provider procedures requiring assistance completed. IV discontinued, intact, ll3 bleeding controlled, No redness/swelling at site. Pressure dressing applied. Administered Medications: 03/02 22:10 Drug: D50W 50 ml Route: IVP; Site: left forearm; ll3 03/03 01:18 Follow up: Response: No adverse reaction; Blood sugar is elevated ll3 03/02 22:10 Drug: Glucose (dextrose) Gel 15 grams Route: PO; ll3 03/03 01:18 Follow up: Response: No adverse reaction; Blood sugar is elevated ll3 08 22:21 Not Given (Duplicate Order): D10 in Water [2 mL/kg] 250 ml IVP once ll3 22:21 Not Given (Duplicate Order): NS 0.9% 500 ml IV at bolus once ll3 22:22 Not Given (Duplicate Order): Glucose (dextrose) Gel 15 grams PO once ll3 22:28 Drug: NS 0.9% 500 ml Route: IV; Rate: bolus; Site: left forearm; 3 03/03 01:18 Follow up: Response: No adverse reaction; IV Status: Completed infusion; IV Intake: ll3 500ml Medication: 01:18 VIS not applicable for this client. 3 Point of Care Testing: Blood Glucose: 03/02 22:09 Blood Glucose: 29 mg/dL; bb 22:35 Blood Glucose: 280 mg/dL; ll3 23:41 Blood Glucose: 258 mg/dL; ll3 03/03 00:52 Blood Glucose: 239 mg/dL; ll3 Ranges: Intake: 01:18 IV: 500ml; Total: 500ml. 3 Outcome: 01:04 Discharge ordered by . sd2 01:17 Discharged to home ambulatory. 3 01:17 Condition: stable 01:17 Discharge instructions given to patient, Instructed on discharge instructions, follow up and referral plans. Demonstrated understanding of instructions, follow-up care. 01:19 Patient left the ED. 3 Signatures: Dispatcher [employer] Carrie Shelton, Samira Morse RN, Lynsea, RN RN 3 Nikki Izquierdo MD MD sd2
--- NOTE | 2022-03-03 01:05 | EDPHYS ---
Physician Documentation [facility] Name: Nick Elizondo II Age: 56 yrs Sex: Male : 1965 Arrival Date: 03/02/2022 Time: 22:05 Bed 18 Private MD: ED Physician Nikki Izquierdo HPI: 03/02 22:21 This 56 yrs old Male presents to ER via EMS with complaints of altered mental status. sd2 22:21 56-year-old male with a history of type 1 diabetes insulin-dependent presents via EMS sd2 with chief complaint of altered mental status. He was found outside in his car by a [employer] employee and found to appear profoundly cyanotic although his O2 saturations were 94% upon their arrival. He was placed on 100% nonrebreather with some improvement. They did not check her blood sugar prior to arrival. The patient's blood sugar upon arrival was 29. He was awake, alert and able to speak with me and tell me his name and that he is an insulin-dependent diabetic. He reports this has not happened in a couple of years which is consistent with his prior records in our system when he was last seen for a similar issue due to hypoglycemia. The patient denies any CP or SOB. Denies any recent fevers or illness, nausea, vomiting or diarrhea. . Historical: - Allergies: 22:09 No Known Allergies; bb - PMHx: 22:09 Diabetes - IDDM; bb ROS: 22:21 Constitutional: Negative for fever, chills, and weight loss, Eyes: Negative for injury, sd2 pain, redness, and discharge, Cardiovascular: Negative for chest pain, palpitations, and edema, Respiratory: Negative for shortness of breath, cough, wheezing. Abdomen/GI: Negative for abdominal pain, nausea, vomiting, diarrhea. MS/Extremity: Negative for injury and deformity, Skin: Negative for injury, rash. Positive for discoloration. Neuro: Negative for headache, numbness and tingling. Exam: 22:21 Constitutional: This is a well developed, well nourished patient who is awake, alert, sd2 and in no acute distress. Head/Face: Normocephalic, atraumatic. Eyes: EOMI, normal conjunctiva bilaterally Chest/axilla: Normal chest wall appearance and motion. Nontender with no deformity. Cardiovascular: Tachycardic rate and regular rhythm with a normal S1 and S2. No gallops, murmurs, or rubs. 2+ distal pulses. Respiratory: Lungs have equal breath sounds bilaterally, clear to auscultation. No rales, rhonchi or wheezes noted. Mild increased work of breathing with mild tachypnea. Diminished BS at bilateral bases. Abdomen/GI: Soft, non-tender, with normal bowel sounds. No guarding or rebound. No evidence of tenderness throughout. Skin: Warm and dry. Blue graf discoloration noted to face and upper chest with no cyanosis noted to distal extremities. MS/ Extremity: Pulses equal, no cyanosis. Neurovascular intact. Full, normal range of motion. Ambulatory without difficulty. 03/03 00:16 ECG was reviewed by the Attending Physician. Sinus tachycardia, rate 112, no STEMI sd2 criteria, unable to clearly read all leads due to significant artifact, will attempt to repeat once patient is stabilized. 01:00 ECG was reviewed by the Attending Physician. NSR, rate 77, no STEMI criteria sd2 Vital Signs: 03/02 22:07 BP 173 / 96; Pulse 135; Resp 24 S; Pulse Ox 100% on 15% Non-rebreather mask; Weight bb 68.04 kg (R); Height 5 ft. 4 in. (162.56 cm) (R); 22:50 BP 152 / 75; Pulse 97; Resp 15; Pulse Ox 100% on R/A; ll3 03/03 00:33 BP 147 / 77; Pulse 81; Resp 10; Pulse Ox 100% on R/A; ll3 03/02 22:07 Body Mass Index 25.75 (68.04 kg, 162.56 cm) bb MDM: 03/02 22:15 Patient medically screened. sd2 22:26 Differential Diagnosis methemoglobinemia, hypoglycemia, anemia, dehydration, sd2 electrolyte abnormality, CO poisoning among others. Data reviewed: vital signs, nurses notes, EMS record. 03/03 01:00 Data reviewed: lab test result(s), EKG, radiologic studies. sd2 01:00 Counseling: I had a detailed discussion with the patient and/or guardian regarding: the sd2 historical points, exam findings, and any diagnostic results supporting the discharge/admit diagnosis, lab results, radiology results, the need for outpatient follow up, to return to the emergency department if symptoms worsen or persist or if there are any questions or concerns that arise at home. Medical screen evaluation completed. [facility] emergency medical condition absent. ED course: Labs and imaging reviewed. Labs are grossly within normal clinical limits aside from hypoglycemia which was corrected with oral glucose and D10 via IV. The patient has not required any further supplemental glucose administration and his glucose has remained stable. The patient reports that the last time he had issues with his blood sugar was about 2 years ago when the same thing happened. He reports he does tend to have this abnormal discoloration of his face when he gets sick like this. He reports it takes some time for it to resolve and usually quite a few hours. He does continue to have the bluish-purple discoloration to his face but his sats are 100% and he is in absolutely no respiratory distress. There is no cyanosis of his extremities and the patient reports that this is normal for him. I do not see any evidence of sepsis or infectious process at this time. The patient is feeling much improved and states he is comfortable with the plan for discharge and outpatient follow-up and verbalizes understanding of strict return precautions.. 03/02 22:11 Order name: Basic Metabolic Panel; Complete Time: 23:32 jb4 03/02 22:11 Order name: CBC with Diff; Complete Time: 23:25 jb4 03/02 22:11 Order name: Troponin HS; Complete Time: 23:32 jb4 03/02 22:18 Order name: Glucose, Ancillary Testing; Complete Time: 23:25 EDMS 03/02 22:18 Order name: Procalcitonin; Complete Time: 23:47 sd2 03/02 22:18 Order name: Lactate; Complete Time: 23:47 sd2 03/02 22:18 Order name: ABG; Complete Time: 23:25 sd2 03/02 22:18 Order name: Urine Microscopic Only; Complete Time: 23:47 sd2 03/02 22:49 Order name: Glucose, Ancillary Testing; Complete Time: 23:25 EDMS 03/02 22:57 Order name: Liver (Hepatic) Function; Complete Time: 23:32 EDMS 03/02 22:57 Order name: NT PRO-BNP; Complete Time: 23:32 EDMS 03/02 23:07 Order name: Urine Dipstick-Ancillary; Complete Time: 23:25 EDMS 03/02 22:11 Order name: XRAY Chest (1 view) [facility] 03/02 22:11 Order name: EKG; Complete Time: 22:13 [facility] 03/02 22:11 Order name: Cardiac monitoring; Complete Time: 22:14 [facility] 03/02 22:11 Order name: EKG - Nurse/Tech; Complete Time: 22:14 [facility] 03/02 22:11 Order name: IV Saline Lock; Complete Time: 22:14 [facility] 03/02 22:11 Order name: Labs collected and sent; Complete Time: 22:31 [facility] 03/02 22:11 Order name: O2 Per Protocol; Complete Time: 22:14 [facility] 03/02 22:11 Order name: O2 Sat Monitoring; Complete Time: 22:14 [facility] 03/02 23:54 Order name: Glucose, Ancillary Testing; Complete Time: 00:09 EDMS 03/03 01:04 Order name: Glucose, Ancillary Testing; Complete Time: 01:07 EDMS 03/02 22:18 Order name: Glucose Level; Complete Time: 22:35 sd2 03/02 22:18 Order name: Urine Dipstick-Ancillary (obtain specimen); Complete Time: 23:07 sd2 03/02 23:26 Order name: Misc. Order: hourly glucose checks; Complete Time: 00:55 bb 03/03 00:15 Order name: EKG - Nurse/Tech; Complete Time: 00:55 sd2 Administered Medications: 03/02 22:10 Drug: D50W 50 ml Route: IVP; Site: left forearm; 3 03/03 01:18 Follow up: Response: No adverse reaction; Blood sugar is elevated [facility] 03/02 22:10 Drug: Glucose (dextrose) Gel 15 grams Route: PO; 3 03/03 01:18 Follow up: Response: No adverse reaction; Blood sugar is elevated 3 03/02 22:21 Not Given (Duplicate Order): D10 in Water [2 mL/kg] 250 ml IVP once ll3 22:21 Not Given (Duplicate Order): NS 0.9% 500 ml IV at bolus once 3 22:22 Not Given (Duplicate Order): Glucose (dextrose) Gel 15 grams PO once ll3 22:28 Drug: NS 0.9% 500 ml Route: IV; Rate: bolus; Site: left forearm; ll3 03/03 01:18 Follow up: Response: No adverse reaction; IV Status: Completed infusion; IV Intake: ll3 500ml Point of Care Testing: Blood Glucose: 03/02 22:09 Blood Glucose: 29 mg/dL; bb 22:35 Blood Glucose: 280 mg/dL; ll3 23:41 Blood Glucose: 258 mg/dL; ll3 03/03 00:52 Blood Glucose: 239 mg/dL; ll3 Ranges: Critical Glucose Levels:Adult <50 mg/dl or >400 mg/dl <40 mg/dl or >180 mg/dl Disposition Summary: 03/03/22 01:04 Discharge Ordered Location: Home sd2 Problem: new sd2 Symptoms: have improved sd2 Condition: Stable sd2 Diagnosis - Hypoglycemia, unspecified sd2 - Facial discoloration sd2 Followup: sd2 - With: Private Physician - When: 2 - 3 days - Reason: Recheck today's complaints, Continuance of care, Re-evaluation by your physician Followup: sd2 - With: Emergency Department - When: As needed - Reason: Discharge Instructions: - Discharge Summary Sheet sd2 - Hypoglycemia, [id number] sd2 Forms: - Medication Reconciliation Form sd2 - Thank You Letter sd2 - Antibiotic Education sd2 - Prescription Opioid Use sd2 Signatures: Dispatcher [employer] EDCarrie Simmons RN RN bb Gama Goodwin RN RN [id number] Pricilla Welch RN RN ll3 Cheryle Campbell PA PA [email or web address] Nikki Izquierdo MD MD sd2 Corrections: (The following items were deleted from the chart) 03/02 22:57 22:50 COMPREHENSIVE METABOLIC PANEL+C.LAB.BRZ ordered. EDMS EDMS 22:57 22:51 PROBNP+C.LAB.BRZ ordered. EDMS EDMS
[2022-03-03 04:54] VITALS: O2SAT 100
[2022-03-03 04:59] VITALS: BP 147/77
--- NOTE | 2022-03-03 10:37 | EKG ---
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
--- NOTE | 2022-03-03 10:37 | EKG ---
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
--- NOTE | 2022-03-03 15:45 | RAD REPORT ---
EXAM DESCRIPTION: RAD - Chest Single View - 03/02/2022 10:24 pm CLINICAL HISTORY: 56-year-old male with shortness of breath. TECHNIQUE: Single view, AP portable chest was obtained. COMPARISON: None. FINDINGS: Unremarkable cardiac and mediastinal silhouette. Heart size is normal. Lungs are clear without focal opacity, pneumothorax or pleural effusions. The visualized bones are within normal limits. IMPRESSION: No acute cardiopulmonary abnormalities. Electronically signed by: Jenni Escalante MD 03/02/2022 11:22 PM CDT Due to temporary technical issues with the PACS/Fluency reporting system, reports are being signed by the in house radiologists without review as a courtesy to insure prompt reporting. The interpreting radiologist is fully responsible for the content of the report.
== END 2022-03-03 01:19 | disposition home or self-care (01) ==
LOC: ER 22:01
DX: E11.649 Type 2 diabetes mellitus with hypoglycemia without coma (principal); L81.9 Disorder of pigmentation, unspecified
CPT/HCPCS: 36415; 71045; 80048; 80076; 81003; 81015; 82805; 82947; 83605; 83880; 84145; 84484; 85025; 93005; 96361; 96374; 99284; J7040

== ENCOUNTER 2022-11-24 19:42 | Emergency (ER) | payer SELFPAY ==
--- OUTSIDE RECORDS SUMMARY | 2022-11-24 20:36 | XMS REPORT | Continuity of Care Document ---
:1965 Author Organization [facility] t Address [address] [place] [address] [place] [id number] Care Team Providers Name Role Phone PCP, PATIENT DOES NOT HAVE A Primary Care Physician Unavaila NASRIN [place] Attending Clinician Unavailable Bhakti Attending Clinician Unavailable Doctor Unassigned, [place] Attending Clinician Unavailable Isai HUNTER, Wen Mendez Attending Clinician Stephany Boateng Attending Clinician Travis Morel MD Attending Clinician Trevor Lockhart MD Attending Clinician Aislinn Hathaway MD Attending Clinician AISLINN HATHAWAY Attending Clinician Unavailable DU BESS Attending Clinician Unavailable Du Bess MD Attending Clinician Salena Masters Attending Clinician Tariq CHOWDHURY, [facility] Attending Clinician Jaswinder Duncan Attending Clinician Leobardo Estevez Attending Clinician NASRIN SINGH Admitting Clinician Unavailable Bhakti Admitting Clinician Unavailable Trevor Lockhart MD Admitting Clinician TREVOR LOCKHART JR Admitting Clinician Unavailable DU BESS Admitting Clinician Unavailable Jaswinder Duncan Admitting Clinician Payers Payer Name Policy Type Policy Number Effective Date Expiration Date S ource Problems Condition Condition Condition Status Onset Resolution Last Treating Co mments Source Name Details Category Date Date Treatment Clinician Date Argyria Argyria Disease [facility] Coronary Coronary Disease Rec[facility] artery artery nce 5[facility]12 [facility] disease disease 00:00: Medical involving involving 00 Cent er [place] coronary coronary artery of artery of [place] heart heart without without angina angina pectoris pectoris Ischemic Ischemic Disease Rec[facility]re [facility] cardiomyop cardiomyop nce 5-12 Franc[facility] kes athy athy 00:00: Medical 00 Center Cocaine Cocaine Disease Rec[facility] abuse abuse nce 5[facility]12 [facility] 00 [place] Odynophagi Odynophagi Disease Active [facility] a a 5[facility]12 [facility] 00:[facility]: Medical 00 [place] DKA DKA Disease Recurre [facility] (diabetic (diabetic nce 5-10 [facility] ketoacidos ketoacidos 00:00: Me dical es) es) 00 [place] E44.0 E44.0 Disease Active Univers Moderate Moderate 2-17 ity of protein protein 00:00: [place] calorie calorie 00 Medical malnutriti malnutriti Br anch on on Diabetic Diabetic Disease Active Unive rs ketoacidos ketoacidos 2-16 it y of is is 00:00: [place] 00 Medical Branch TROUBLE TROUBLE Diagnosis Active 2018-01-07 Memoria BREATHING BREATHING 14 01:18:00 l Active 00:00: Orlf 01/06/[address] [place] [address] Rolf DKA DKA Diagnosis Active 2018-01-13 Mem oria Active 01-06 21:59:00 l 01/06/2018 00:00: Donnie SALINAS [address] [facility] Type 1 Type 1 Disease Active 2016-07 Univers diabetes diabetes 1-02 ity of mellitus mellitus 00:00: [place] with with 00 Medical complicati complicati Br anch on on CAD CAD Disease Active Univers (coronary (coronary 5-17 ity of artery artery 00:00: [place] disease), disease), 00 Medi clementine [place] Branch coronary coronary artery artery CAD CAD Disease Active 2016- Univers (coronary (coronary 5-17 ity of artery artery 00:00: [place] disease), disease), 00 Medi clementine [place] Branch coronary coronary artery artery Type 1 Type 1 Problem 2018-01-11 Ludwin brannon diabetes diabetes 00:37:10 l mellitus mellitus Donnie n with with ketoacidos ketoacidos is without is without coma coma 01/11/2018 [facility] TYPE 1 TYPE 1 Diagnosis Active 2018-01-13 [place] DIABETES DIABETES 21:59:00 l MELLITUS MELLITUS Donnie n WITH WITH KETOACIDOS KETOACIDOS Active [facility] Allergies, Adverse Reactions, Alerts Allergy Allergy Status Severity Reaction(s) Onset Inactive Treating Comm ents Source Name Type Date Date Clinician NO KNOWN Allergy Active [facility] NO KNOWN Drug Active Univers ALLERGIE Class ity of S [facility] Social History Social Habit Start Date Stop Date Quantity Comments Source History SDOH [facility] Alcohol Binge Medical [facility] History of tobacco Smokes tobacco [facility] use daily Medical Center History [facility] Alcohol Std Drinks [facility] Alcohol intake 2019-12-07 2019-12-[address] [facility] es 00:00:00 00:00:00 non-drinker of Medical Ce nter alcohol (finding) Cigarettes smoked 2019-12-03 2019-12-[address] [facility] current (pack per 00:00:00 00:00:00 Medical Center day) - Reported History [facility] 2019-12-03 2019-12-[address] [facility] Alcohol Frequency 00:00:00 00:00:00 [facility] Tobacco use and 2019-08-17 2019-08-17 Current user Univers ity of exposure 00:00:00 00:00:00 [facility] Cigarette 2019-08-17 2019-08-17 University of pack-years 00:00:00 00:00:00 [facility] Social History 2018-01-07 2018-01-07 [facility] Marimar barraza 09:14:53 09:14:53 Alcohol Comment 2016-11-19 2016-11-19 once a month Univers ity of 00:00:00 00:00:00 [facility] Sex Assigned At [address] [facility] kes 00:00:00 00:00:00 Medical Center Smoking Status Start Date Stop Date Source Current every day smoker 2019-08-17 00:00:00 [facility] Medications Ordered Filled Start Stop Current Ordering Indication Dosage Frequency Signature Comments Components Source Medication Medication Date Date Medication? Clinician (SIG) Name Name metoprolol 2020-0 Yes 12.5mg Q.5D Take 12.[address] [facility] tartrate 5-15 mg by [facility] (LOPRESSOR) 15:14: mouth 2 Med ical 25 MG 20 (two) Center tablet times daily. predniSONE 2020-0 Yes 5mg QD Take [address] (DELTASONE) 5-15 by mouth Luke s 5 MG tablet 15:14: daily. Medi clementine 20 Center albuterol 2020-0 Yes 2.5mg Q.5D Take 2.[address] (PROVENTIL) 5-15 mg by [facility] 2.5 mg /3 15:14: nebulizati Me dical mL (0.083 20 on 2 (two) Cent er %) times nebulizer daily. solution mirtazapine 2020-0 Yes 30mg Take [address] (REMERON 5-15 by mouth. [facility]ukes ORAL) 15:14: Medical 20 [place] lisinopriL 2020-0 Yes 5mg Take [address] (PRINIVIL,Z 5-15 by mouth. Angella es ESTRIL) 5 15:14: Medical MG tablet 20 [place] aspirin 81 2020-0 Yes 81mg QD Take [address] MG chewable 5-15 by mouth Luke s tablet 15:14: daily. [address] traMADoL 2020-0 Yes 50mg Take [address] (ULTRAM) 50 5-15 tablet (50 Francie kes mg tablet 00:00: mg total) Med ical 00 by mouth [place] every 8 (eight) hours as needed for Pain. Max Daily Amount: 150 mg insulin NPH 2020-0 Yes 10U 10 Units, U nivers (HUMULIN N) -20 Subcutaneo it y of injection 15:00: , Patrick STERLING 10 Units 00 First dose Medic al on [place] Branch 09/14/19 at 0900, Until Discontinu ed, Routine flu vaccine 2019-0 2020- No .5mL 0.5 mL, Un dg 6 months 09-14 Intramuscu ity of and up 00:30: 12:29 [place], ONCE, [place] (FLUZONE 00 :00 1 dose, Medical QUAD Wed Branch [id number] 09/13/19 at (PF)) 1830, syringe 0.5 Routine mL aspirin 81 2020-0 Yes 81mg Take 81 mg U nivers mg chewable 2-20 by mouth ity of tablet 00:22: daily. [place] [address] Medical Branch lisinopril 2020-0 Yes 5mg Take 5 mg Un dg 5 mg tablet 2-20 by mouth 2 it y of 00:22: (two) [place] [address] times Medical daily. Branch aspirin 81 2020-0 Yes 81mg Take 81 mg U nivers mg chewable 2-20 by mouth ity of tablet 00:22: daily. [place] [address] Medical Branch lisinopril 2020-0 Yes 5mg Take 5 mg Un dg 5 mg tablet 2-20 by mouth 2 it y of 00:22: (two) [place] [address] times Medical daily. Branch aspirin 81 2020-0 Yes 81mg Take 81 mg U nivers mg chewable 2-20 by mouth ity of tablet 00:22: daily. [place] [address] Medical Branch lisinopril 2020-0 Yes 5mg Take 5 mg Un dg 5 mg tablet 2-20 by mouth 2 it y of 00:22: (two) [place] [address] times Medical daily. Branch aspirin 81 2020-0 Yes 81mg Take 81 mg U nivers mg chewable 2-20 by mouth ity of tablet 00:22: daily. [place] [address] Medical Branch lisinopril 2020-0 Yes 5mg Take 5 mg Un dg 5 mg tablet 2-20 by mouth 2 it y of 00:22: (two) [place] [address] times Medical daily. Branch aspirin 81 2020-0 Yes 81mg Take 81 mg U nivers mg chewable 2-20 by mouth ity of tablet 00:22: daily. [place] [address] Medical Branch lisinopril 2020-0 Yes 5mg Take 5 mg Un dg 5 mg tablet 2-20 by mouth 2 it y of 00:22: (two) [place] [address] times Medical daily. Branch aspirin 81 2020-0 Yes 81mg Take 81 mg U nivers mg chewable 2-20 by mouth ity of tablet 00:22: daily. [place] [address] Medical Branch lisinopril 2020-0 Yes 5mg Take 5 mg Un dg 5 mg tablet 2-20 by mouth 2 it y of 00:22: (two) [place] [address] times Medical daily. Branch insulin NPH 2020-0 Yes [id number] 10U inject 10 Univers 100 unit/mL 2-20 Units ity of injection 00:00: under the Nas as 00 skin every Medical morning. Branch insulin NPH 2020-0 Yes [id number] 10U inject 10 Univers 100 unit/mL 2-20 Units ity of injection 00:00: under the Nas as 00 skin every Medical morning. Branch insulin NPH 2020-0 Yes [id number] 10U inject 10 Univers 100 unit/mL 2-20 Units ity of injection 00:00: under the Nas as 00 skin every Medical morning. Branch insulin NPH 2020-0 Yes [id number] 10U inject 10 Univers 100 unit/mL 2-20 Units ity of injection 00:00: under the Nas as 00 skin every Medical morning. Branch insulin NPH 2020-0 Yes [id number] 10U inject 10 Univers 100 unit/mL 2-20 Units ity of injection 00:00: under the Nas as 00 skin every Medical morning. Branch insulin NPH 2020-0 Yes [id number] 10U inject 10 Univers 100 unit/mL 2-20 Units ity of injection 00:00: under the Nas as 00 skin every Medical morning. Branch insulin NPH 2019-0 Yes 6U 6 Units, Un dg (HUMULIN N) - Subcutaneo it y of injection 6 23:00: [place], QPM, [place] Units 00 First dose Medical on Wed [place] 09/13/19 at 1700, Until Discontinu ed, Routine insulin 2019-0 Yes 3U 3 Units, Univer s regular -19 Subcutaneo ity of human 22:30: us, BIDAC, [place] (HUMULIN R) 00 First dose Me dical injection 3 on Wed Branch Units 09/13/19 at 1630, Until Discontinu ed, Routine clopidogreL 2019-0 Yes 75mg 75 mg, Univ ers (PLAVIX) - Oral, ity of tablet 75 15:00: DAILY, [place] mg 00 First dose Medical on Wed [place] 09/13/19 at 0900, Until Discontinu ed, Routine insulin NPH 2020-0 2020- No 6U 6 Units, U nivers (HUMULIN N) 2-13 09-19 Subcutaneo i ty of injection 6 15:00: 22:02 us, QAM, [place] Units 00 :45 First dose Medical on Wed Branch 09/13/19 at 0900, Until Discontinu ed, Routine metoprolol 2020-0 Yes 12.5mg 12.5 mg, U nivers tartrate 2-19 Oral, BID, ity o f (LOPRESSOR) 02:00: First dose [place] half tablet 00 on Tue Medica l 12.5 mg 09/12/19 at Branch 1999, Until Discontinu ed, Routine metoprolol 2020-0 Yes [id number] 12.5mg Take 0.5 Univers tartrate 25 2-19 tablets by it y of mg tablet 00:00: mouth 2 (two) Medical times Branch daily. insulin NPH 2020-0 Yes [id number] 6U inject 6 Univers 100 unit/mL 2-19 Units ity of injection 00:00: under the Nas as 00 skin every Medical evening. Branch insulin 2020-0 Yes [id number] 3U inject 3 U nivers regular 2-19 Units ity of human 100 00:00: under the Nas as unit/mL 00 skin 2 Medical injection (two) Branch times daily before breakfast and dinner. metoprolol 2020-0 Yes [id number] 12.5mg Take 0.5 Univers tartrate 25 2-19 tablets by it y of mg tablet 00:00: mouth 2 (two) Medical times Branch daily. insulin NPH 2020-0 Yes [id number] 6U inject 6 Univers 100 unit/mL 2-19 Units ity of injection 00:00: under the Nas as 00 skin every Medical evening. Branch insulin 2020-0 Yes [id number] 3U inject 3 U nivers regular 2-19 Units ity of human 100 00:00: under the Nas as unit/mL 00 skin 2 Medical injection (two) Branch times daily before breakfast and dinner. metoprolol 2020-0 Yes [id number] 12.5mg Take 0.5 Univers tartrate 25 2-19 tablets by it y of mg tablet 00:00: mouth 2 (two) Medical times Branch daily. insulin NPH 2020-0 Yes [id number] 6U inject 6 Univers 100 unit/mL 2-19 Units ity of injection 00:00: under the Nas as 00 skin every Medical evening. Branch insulin 2020-0 Yes [id number] 3U inject 3 U nivers regular 2-19 Units ity of human 100 00:00: under the Nas as unit/mL 00 skin 2 Medical injection (two) Branch times daily before breakfast and dinner. metoprolol 2020-0 Yes [id number] 12.5mg Take 0.5 Univers tartrate 25 2-19 tablets by it y of mg tablet 00:00: mouth 2 (two) Medical times Branch daily. insulin NPH 2020-0 Yes [id number] 6U inject 6 Univers 100 unit/mL 2-19 Units ity of injection 00:00: under the Nas as 00 skin every Medical evening. Branch insulin 2020-0 Yes [id number] 3U inject 3 U nivers regular 2-19 Units ity of human 100 00:00: under the Nas as unit/mL 00 skin 2 Medical injection (two) Branch times daily before breakfast and dinner. metoprolol 2020-0 Yes [id number] 12.5mg Take 0.5 Univers tartrate 25 2-19 tablets by it y of mg tablet 00:00: mouth 2 (two) Medical times Branch daily. insulin NPH 2020-0 Yes [id number] 6U inject 6 Univers 100 unit/mL 2-19 Units ity of injection 00:00: under the Nas as 00 skin every Medical evening. Branch insulin 2020-0 Yes [id number] 3U inject 3 U nivers regular 2-19 Units ity of human 100 00:00: under the Nas as unit/mL 00 skin 2 Medical injection (two) Branch times daily before breakfast and dinner. metoprolol 2020-0 Yes [id number] 12.5mg Take 0.5 Univers tartrate 25 2-19 tablets by it y of mg tablet 00:00: mouth 2 (two) Medical times Branch daily. insulin NPH 2020-0 Yes [id number] 6U inject 6 Univers 100 unit/mL 2-19 Units ity of injection 00:00: under the Nas as 00 skin every Medical evening. Branch insulin 2020-0 Yes [id number] 3U inject 3 U nivers regular 2-19 Units ity of human 100 00:00: under the Nas as unit/mL 00 skin 2 Medical injection (two) Branch times daily before breakfast and dinner. Sliding 2020-0 Yes Subcutaneo Univ ers Scale 2-18 us, Q4H, ity of Insulin - 22:00: First dose [place] Aspart 00 on [facility] (NOVOLOG) + 09/12/19 at Br anch Fsbg 1600, Testing Until Discontinu ed, Routine alum-mag 2020-0 Yes 30mL 30 mL, Univers hydroxide-s -18 Oral, ity of imeth 05:11: Q6HPRN, [place] (MAALOX 47 Starting Medical PLUS / [facility] Branch MAG-AL 09/11/19 at PLUS) 2311, 200-200-20 Until mg/5 mL Discontinu suspension ed, 30 mL Routine, Indigestio n atorvastati 2020-0 Yes 40mg 40 mg, Univ ers n (LIPITOR) -18 Enteral, ity of tablet 40 03:00: QHS, First [place] mg 00 dose on Medical [facility] Branch 09/11/19 at 2100, Until Discontinu ed, Routine phenol 2020-0 Yes 1{spray 1 [place], Univ ers (SORE -18 } Oral, PRN, ity of THROAT 02:56: Starting [place] (PHENOL)) 32 [facility] Medical 1.4 % spray 09/11/19 at Br [facility] bottle 1 2055, [place] Until Discontinu ed, Routine, Sore throat benzocaine- 2020-0 Yes 1{lozen 1 Lozenge, Univers menthol 2-18 ge} Oral, ity of (CEPACOL 02:46: Q4HPRN, [place] SORE THROAT 32 Starting Medi clementine (CHELY-MEN)) [facility] lozenge 1 09/11/19 at Lozenge 2045, Until Discontinu ed, Routine, Sore throat alum-mag 2020-0 2020- No 30mL 30 mL, Univer s hydroxide-s 09-11 Oral, ity of imeth 23:30: 00:15 ONCE, 1 [place] (MAALOX 00 :00 dose, Mon Medical PLUS / 09/11/19 at Branch MAG-AL 1730, PLUS) Routine 200-200-20 mg/5 mL suspension 30 mL Sliding 2019-0 2020- No Subcutaneo Uni vers Scale -09-12 us, Q3H, ity of Insulin - 23:00: 18:31 First dose [place] Aspart 00 :37 on [facility] (NOVOLOG) + 09/11/19 at Br anch Fsbg 1700, Testing Until Discontinu ed, Routine D5W 0.45% 2019-0 2020- No IV Univers NaCl 09-11 Infusion, ity of (1/2NS) 1 L 22:30: 05:11 at 150 Nas as + KCL 20 00 :07 mL/hr, Medical mEq CONTINUOUS Branch , Starting 09/11/19 at 1630, Until Wed09/11/19 at 2311, Routine acetaminoph 2019-0 Yes 650mg 650 mg, Un dg en 09-11 Oral, ity of (TYLENOL) 21:04: Q6HPRN, [place] tablet 650 00 Starting Medic al mg Mon Branch 09/11/19 at 1504, Until Discontinu ed, Routine, Pain (scale 1-3) Sliding 2019-0 2020- No Subcutaneo Uni vers Scale 09-11 us, Q4H, ity of Insulin - 18:00: 22:14 First dose [place] Aspart 00 :50 on [facility] (NOVOLOG) + 09/11/19 at Br anch Fsbg 1200, Testing Until Discontinu ed, Routine Saline 2019-2019- No 6mL 6 mL, Univers Bubble 09-11 Injection, ity of Study 17:45: 15:45 SEE-INSTRU [place] 00 :34 CTIONS, Medical Starting Branch 09/11/19 at 1145, Until Wed09/13/19 at 0945, Routine Saline 2019-2019- No 6mL 6 mL, Univers Bubble 09-11 Injection, ity of Study 17:45: 15:45 SEE-INSTRU [place] 00 :34 CTIONS, Medical Starting Branch 09/11/19 at 1145, Until Wed09/13/19 at 0945, Routine insulin 2019- 2020- No .15U/kg 3 Units Uni vers aspart 09-11 /d (rounded ity of RAPID 16:15: 22:02 from 2.55 [place] (NOVOLOG) 00 :45 Units = Medical injection 3 0.15 Branch Units Units/kg/d ay ?51 kg), Subcutaneo us, TID MEALS, First dose on Wed09/11/19 at 1015, Until Discontinu ed, Routine pantoprazol 2019-0 Yes 40mg 40 mg, IV U nivers e 09-11 Piggyback, ity of (PROTONIX) 15:00: DAILY, [place] 40 mg in 00 First dose Medic al NaCl 0.9% on Mon Branch (NS) 100 mL 09/11/19 at MINI-BAG 0900, Until Discontinu ed, 100 mL heparin 2019- Yes 5000U 5,000 Univers (porcine) 09-11 Units, ity of injection 14:00: Subcutaneo [place] 5,000 Units 00 us, Q12H, Med ical First dose Branch on 09/11/19 at 0800, Until Discontinu ed, Routine dextrose 2019- No 250mL 250 mL, IV U nivers 10% (D10W) 09-11 Infusion, ity of bolus 03:30: 02:30 ONCE, Sun [place] infusion 00 :00 09/10/19 at Medic al [...] at room temperatur e. <b r> lactated 2019- No 500mL at 999 Unive rs ringers IV 09-11 mL/hr, 500 it y of infusion 02:18: 03:00 mL, [place] 500 mL 00 :00 Intravenou Medical s, ONCE, 1 Branch dose, 09/10/19 at 2030, Routine heparin 2019-2019- No 12U/kg/ 12 Univer s 25,000 09-10 h Units/kg/h ity of units/250mL 18:30: 02:20 r ?51 kg [place] in NS 00 :45 (6.12 Medical weight mL/hr), IV Branch based Infusion, dosing ACS CONTINUOUS protocol , Starting 09/10/19 at 1230, Until 09/10/19 at 2020 D5W 0.45% 2019-0 2020- No IV Univers NaCl 09-10 Infusion, ity of (1/2NS) 1 L 18:17: 22:20 at 200 Nas as + KCL 20 00 :29 mL/hr, Medical mEq CONTINUOUS Branch , Starting 09/10/19 at 1230, Until 09/11/19 at 1620, Routine insulin 2019-0 2020- No .1U/kg/ 0.1 Univer s regular 2-16 02-19 h Units/kg/h ity o f human 18:00: 15:44 r ?51 kg [place] (HUMULIN R) 42 :34 (5.1 Medical 100 Units mL/hr), IV Bran ch in NaCl Infusion, 0.9% (NS) TITRATE, 100 mL Starting infusion [place] 09/10/19 at 1200, Until 09/13/19 at 0944 heparin 2019-0 2020- No 60U/kg 3,060 Univer s 1000 - 02-16 Units (60 ity of unit/mL 17:30: 18:40 Units/kg [place] injection 00 :00 ?51 kg), Medica l Soln 3,060 IV Push, Branc h Units ONCE, 1 dose, [place] 09/10/19 at 1130, Routine aspirin 2020-0 Yes 81mg 81 mg, Univers chewable 2-16 Enteral, ity of tablet 81 15:30: DAILY, [place] mg 00 First dose Medical on [facility] 09/10/19 at 0930, Until Discontinu ed, Routine glucagon 2019-0 Yes 1mg 1 mg, Univers (GLUCAGEN 2-16 Intramuscu ity of DIAGNOSTIC 15:00: lar, PRN, [place] KIT) 11 Starting Medical injection 1 [facility] mg 09/10/19 at 0900, Until Discontinu ed, MACKENZIE, Blood Glucose < or = 70 mg/dL and patient is unable to swallow or has mental changes. dextrose 50 2019-0 Yes 25mL 25 mL, Univ ers % in water 2-16 Slow IV ity of (D50W) 15:00: Push, PRN, [place] injection 10 Starting Medica l 25 mL [facility] 09/10/19 at 0900, Until Discontinu ed, MACKENZIE, Blood Glucose < or = 70 mg/dL and patient is unable to swallow or has mental status changes. Sliding 2019-0 2020- No Subcutaneo Uni vers Scale 2- 02-17 us, AC+HS, ity of Insulin-Reg 13:30: 18:39 First dose [place] ular + Fsbg 00 :39 on Sun Medica l Testing 09/10/19 at Branch 0730, Until Discontinu ed, Routine pantoprazol 2019-0 2020- No 80mg 80 mg, IV Univers e 09-10 Piggyback, ity of (PROTONIX) 13:30: 13:42 ONCE, 1 [place] as 80 mg in 00 :00 dose, Sun Medica l NaCl 0.9% 09/10/19 at Bran ch (NS) 100 mL 0730, 100 IV mL Piggyback NaCl 0.9% 2020-0 2020- No 1000mL at 250 Uni vers (NS) IV 09-10-16 mL/hr, ity of infusion 09:30: 18:06 Intravenou [place] 1,000 mL 00 :17 s, Medical CONTINUOUS Branch , Starting 09/10/19 at 0330, Until 09/10/19 at 1206, MACKENZIE D5W 0.45% 2019-0 2020- No Intravenou U nivers NaCl 09-10 s, at 150 ity of (1/2NS) 1 L 06:45: 18:06 mL/hr, Nas as + KCL 20 00 :17 CONTINUOUS Medic al mEq , Starting Branch 09/10/19 at 0045, Until 09/10/19 at 1206, MACKENZIE NaCl 0.9% 2020-0 2020- No 1000mL at 250 Uni vers (NS) IV 09-10-16 mL/hr, ity of infusion 05:30: 05:43 1,000 mL, Nas as 1,000 mL 00 :31 IV Medical Infusion, Branch CONTINUOUS , Starting 09/09/19 at 2330, Until 09/09/19 at 2343, MACKENZIE midazolam 2019-0 2020- No 1mg/h 1-10 mg/hr Univers (VERSED) 09-10 (1-10 ity of STD 50 mg 05:03: 20:30 mL/hr), IV [place] in NaCl 11 :44 Infusion, Medical 0.9% (NS) TITRATE, Branch 50 mL Starting infusion Sat RTU 09/09/19 at 2303, Until 09/12/19 at 1430 vecuronium 2019-0 2020- No 8mg 8 mg, IV Un dg (NORCURON) 09-10 Push, ity of injection 8 03:30: 22:14 ONCE, 1 [place] mg 00 :00 dose, Sat Medical 09/09/19 at Branch 2130, STAT ketamine 2019- No 100mg 100 mg, Univ ers (KETALAR) 09-10 Slow IV ity of injection 03:30: 22:12 Push, [place] 100 mg 00 :00 ONCE, 1 Medical dose, Sat Branch 09/09/19 at 2130, MACKENZIE NORepinephr 2019- No .05ug/k 0.05-3 Univers ine 4 mg [...] allowed dose, contact prescriber .
midazolam 2019- No 5mg 5 mg, IV Uni vers (VERSED) 09-10 Push, ity of injection 5 02:45: 19:40 ONCE, 1 [place] mg 00 :00 dose, Sat Medical 09/09/19 at Branch 2044, STAT midazolam 2020- No 5mg 5 mg, IV Uni vers (VERSED) 09-10 Push, ity of injection 5 01:38: 01:39 ONCE, 1 [place] mg 00 :00 dose, Sat Medical 09/09/19 at Branch 194, STAT FENTanyl PF 2020- No 25ug/h 25-300 U nivers (SUBLIMAZE 09-09-18 mcg/hr ity of (PF)) 2,500 23:30: 20:30 [...] 2019- No 5ug/kg/ 5-75 Un dg infusion 09-09 min mcg/kg/min ity of 23:30: 08:18 ?51.3 [...] 1500mL at 999 Uni vers (NS) bolus 09-09 mL/hr, ity of infusion 23:00: 23:45 1,500 mL, Nas as 1,500 mL 00 :00 IV Medical Infusion, Branch ONCE, 1 dose, 09/09/19 at 1700, STAT magnesium 2019-2019- No 2g 2 g, IV Univ ers [...] No 10U 10 Units, Univ ers regular 09-09- Slow IV ity of human 23:00: 21:50 Push, [place] (HUMULIN R) 00 :00 ONCE, 1 Medic al injection dose, Sat Branc h 10 Units 09/09/19 at 1700, Routine lactated 2019- No 1000mL at 999 Univ ers ringers IV 09-09-16 mL/hr, ity of infusion 22:00: 18:11 1,000 mL, Nas as 1,000 mL 00 :43 IV Medical Infusion, Branch CONTINUOUS , Starting 09/09/19 at 1600, Until 09/10/19 at 1211, MACKENZIE NaCl 0.9% 2019- No 15mL/kg at 769.5 Univers (NS) bolus 09-09- /h mL/hr, 15 ity of infusion 21:45: [...] at 1430, MACKENZIE, Pain (scale 7-10) insulin 2019-2019- No 6U 6 Units, Unive rs regular 08-17 Subcutaneo ity o f human 13:15: 12:17 , ONCE, [place] (HUMULIN R) 00 :00 1 dose, Medic al injection 6 [place] Branch Units 08/17/19 at 0715, Routine NaCl 0.9% 2020-0 Yes 1000mL at 999 Univ ers (NS) [...] 08/17/19 at Branch 0530, MACKENZIE FENTanyl PF 2020-0 2020- No 50ug 50 mcg, Un dg (SUBLIMAZE 08-17 Slow IV ity o f (PF)) 11:30: 11:01 Push, [place] injection 00 :00 ONCE, 1 Medical 50 mcg dose, [place] Branch 08/17/19 at 0530, Routine aspirin 81 2020-0 Yes 81mg Take 81 mg U nivers mg chewable 08-17 by mouth ity of tablet 10:20: daily. [place] 15 Medical Branch lisinopril 2019-0 Yes 5mg Take 5 mg Un dg 5 mg tablet 08-17 by mouth 2 it y of 10:20: (two) [place] 15 times Medical daily. Branch ondansetron 2020-0 Yes [id number] 4mg Take 1 Univers (ZOFRAN) 4 -23 tablet by ity of mg tablet 00:00: mouth [place] 00 every 8 Medical (eight) Branch hours as needed for Nausea and Vomiting (N/V). traMADol 2020-0 Yes [id number] 50mg Take 1 Uni vers (ULTRAM) 50 -23 tablet by ity of mg tablet 00:00: mouth [place] 00 every 6 Medical (six) Branch hours as needed for Pain (scale 7-10). ondansetron 2020-0 2020- No [id number] 4mg Take 1 Univers (ZOFRAN) 4 - 02-19 tablet by ity of mg tablet 00:00: 00:00 mouth [place] 00 :00 every 8 Medical (eight) Branch hours as needed for Nausea and Vomiting (N/V). traMADol 2020-0 2020- No [id number] 50mg Take 1 Un dg (ULTRAM) 50 -17 09-19 tablet by it y of mg tablet 00:00: 00:00 mouth [place] 00 :00 every 6 Medical (six) Branch hours as needed for Pain (scale 7-10). ezetimibe 2019-0 Yes 10mg Take 1 Univer [...] work Branch done April 26, 2019 lisinopril 2019-0 Yes 5mg Take 5 mg Un dg 5 mg tablet 7-02 by mouth 2 it y of 16:59: (two) [place] 15 times Medical daily. Branch lisinopril 2019-0 Yes 5mg Take 5 mg Un dg 5 mg tablet 7-02 by mouth 2 it y of 16:59: (two) [place] 15 times Medical daily. Branch lisinopril 2019-0 Yes 5mg Take 5 mg Un dg 5 mg tablet 7-02 by mouth 2 it y of 16:59: (two) [place] 15 times Medical daily. Branch lisinopril 2019-0 Yes 5mg Take 5 mg Un dg 5 mg tablet 7-02 by mouth 2 it y of 16:59: (two) [place] 15 times Medical daily. Branch aspirin 81 2019-0 Yes 81mg Take 81 mg U nivers mg chewable 7-02 by mouth ity of tablet 16:44: daily. [address] aspirin 81 2019-0 Yes 81mg Take 81 mg U nivers mg chewable 7-02 by mouth ity of tablet 16:44: daily. [address] aspirin 81 2019-0 Yes 81mg Take 81 mg U nivers mg chewable 7-02 by mouth ity of tablet 16:44: daily. [address] aspirin 81 2019-0 Yes 81mg Take 81 mg U nivers mg chewable 7-02 by mouth ity of tablet 16:44: daily. [address] ondansetron 2019-0 Yes [id number] 4mg Take 1 Univers 4 mg 6-16 tablet by ity of disintegrat 00:00: mouth [place] ing tablet 00 every 8 Medica l (eight) Branch hours as needed for Nausea and Vomiting (N/V). ondansetron 2019-0 Yes [id number] 4mg Take 1 Univers 4 mg 6-16 tablet by ity of disintegrat 00:00: mouth [place] ing tablet 00 every 8 Medica l (eight) Branch hours as needed for Nausea and Vomiting (N/V). ondansetron Yes [id number] 4mg Take 1 Univers 4 mg 6-16 tablet by ity of disintegrat 00:00: mouth [place] ing tablet 00 every 8 Medica l (eight) Branch hours as needed for Nausea and Vomiting (N/V). ondansetron Yes [id number] 4mg Take 1 Univers 4 mg 6-16 tablet by ity of disintegrat 00:00: mouth [place] ing tablet 00 every 8 Medica l (eight) Branch hours as needed for Nausea and Vomiting (N/V). ondansetron Yes [id number] 4mg Take 1 Univers 4 mg 6-16 tablet by ity of disintegrat 00:00: mouth [place] ing tablet 00 every 8 Medica l (eight) Branch hours as needed for Nausea and Vomiting (N/V). ondansetron 2020- No [id number] 4mg Take 1 Univers 4 mg 6-16 02-19 tablet by ity of disintegrat 00:00: 00:[place] tablet 00 :00 every 8 Medica l (eight) Branch hours as needed for Nausea and Vomiting (N/V). ATORVASTATI Yes [id number] TAKE ONE Univers N 80 mg 5-09 07 TABLET BY ity of tablet 00:00: MOUTH AT [place] [address] BEDTIME Medical Branch METOPROLOL 2019-0 Yes [id number] TAKE ONE Univers TARTRATE 25 5-09 07 TABLET BY ity of mg tablet 00:00: MOUTH [place] [address] TWICE A Medical DAY Branch ATORVASTATI 2019-0 Yes [id number] TAKE ONE Univers N 80 mg 5-09 07 TABLET BY ity of tablet 00:00: MOUTH AT [place] [address] BEDTIME Medical Branch METOPROLOL 2019-0 Yes [id number] TAKE ONE Univers TARTRATE 25 5-09 07 TABLET BY ity of mg tablet 00:00: MOUTH [place] 00 TWICE A Medical DAY Branch ATORVASTATI 2019-0 Yes [id number] TAKE ONE Univers N 80 mg 5-09 07 TABLET BY ity of tablet 00:00: MOUTH AT [place] [address] BEDTIME Medical Branch METOPROLOL 2019-0 Yes [id number] TAKE ONE Univers TARTRATE 25 5-09 07 TABLET BY ity of mg tablet 00:00: MOUTH [place] 00 TWICE A Medical DAY Branch ATORVASTATI 2019-0 Yes [id number] TAKE ONE Univers N 80 mg 5- 07 TABLET BY ity of tablet 00:00: MOUTH AT [address] ATORVASTA 2019-0 Yes [id number] TAKE ONE Univers N 80 mg 5- 07 TABLET BY ity of tablet 00:00: MOUTH AT [address] ATORVASTA 0 Yes [id number] TAKE ONE Univers N 80 mg 5- 07 TABLET BY ity of tablet 00:00: MOUTH AT [address] ATORVASTA 0 Yes [id number] TAKE ONE Univers N 80 mg 5- 07 TABLET BY ity of tablet 00:00: MOUTH AT [address] ATORVASTA 0 Yes [id number] TAKE ONE Univers N 80 mg 5- 07 TABLET BY ity of tablet 00:00: MOUTH AT [address] ATORVASTA 0 Yes [id number] TAKE ONE Univers N 80 mg 5-09 TABLET BY ity of tablet 00:00: MOUTH AT [address] METOPROLOL 2019-0 Yes [id number] TAKE ONE Univers TARTRATE 25 12-01 07 TABLET BY ity of mg tablet 00:00: MOUTH [place] [address] TWICE A Medical DAY [place] ATORVASTATI 2019-0 Yes [id number] TAKE ONE Univers N 80 mg 5- 07 TABLET BY ity of tablet 00:00: MOUTH AT [address] METOPROLOL 2019-0 Yes [id number] TAKE ONE Univers TARTRATE 25 12-01 07 TABLET BY ity of mg tablet 00:00: MOUTH [place] [address] TWICE A Medical DAY [place] ATORVASTATI 2019-0 Yes [id number] TAKE ONE Univers N 80 mg 5- 07 TABLET BY ity of tablet 00:00: MOUTH AT [address] atorvastati [address] Yes 80mg QD Take [address] [facility] (LIPITOR) 12-01 by mouth Luke s 80 MG 00:00: daily. Medical [address] METOPROLOL 2019-0 2020- No [id number] TAKE ONE Univers TARTRATE 25 5- 02-19 07 TABLET BY it y of mg tablet 00:00: 00:00 MOUTH [place] 00 :00 TWICE A Medical DAY Branch clopidogrel 2019-0 Yes [id number] 75mg Take 1 Univers 75 mg 4-04 07 tablet by ity of tablet 00:00: mouth [place] 00 daily. [facility] Branch clopidogrel 2019-0 Yes [id number] 75mg Take 1 Univers 75 mg 4-04 07 tablet by ity of tablet 00:00: mouth [place] 00 daily. [facility] Branch clopidogrel 2019-0 Yes [id number] 75mg Take 1 Univers 75 mg 4-04 07 tablet by ity of tablet 00:00: mouth [place] 00 daily. [facility] Branch clopidogrel 2019-0 Yes [id number] 75mg Take 1 Univers 75 mg 4-04 07 tablet by ity of tablet 00:00: mouth [place] 00 daily. [facility] Branch clopidogrel 2019-0 Yes [id number] 75mg Take 1 Univers 75 mg 4-04 07 tablet by ity of tablet 00:00: mouth [place] 00 daily. [facility] Branch clopidogrel 2019-0 Yes [id number] 75mg Take 1 Univers 75 mg 4-04 07 tablet by ity of tablet 00:00: mouth [place] 00 daily. [facility] Branch clopidogrel 2019-0 Yes [id number] 75mg Take 1 Univers 75 mg 4-04 07 tablet by ity of tablet 00:00: mouth [place] 00 daily. [facility] Branch clopidogrel 2019-0 Yes [id number] 75mg Take 1 Univers 75 mg 4-04 07 tablet by ity of tablet 00:00: mouth [place] 00 daily. [facility] Branch clopidogrel 2019-0 Yes [id number] 75mg Take 1 Univers 75 mg 4-04 tablet by ity of tablet 00:00: mouth [place] 00 daily. [facility] clopidogrel 2019-0 Yes [id number] 75mg Take 1 Univers 75 mg 4-04 07 tablet by ity of tablet 00:00: mouth [place] 00 daily. [facility] Branch clopidogrel 2019-0 Yes [id number] 75mg Take 1 Univers 75 mg 4-04 07 tablet by ity of tablet 00:00: mouth [place] 00 daily. [facility] Branch clopidogreL 2019-0 Yes 75mg QD Take [address] (PLAVIX) 75 4-04 by mouth Luke s mg tablet 00:00: daily. Medica l 00 Center 200 ACTUAT 2018-0 Yes 1 puff, Ludwin brannon Albuterol 6-16 INHALER, l 0.09 19:00: QID, PRN [place] MG/ACTUAT 00 for Metered wheezing, Dose # 25 gm, 0 Inhaler Refill(s), [Proventil] Pharmacy: [place] [id number] pantoprazol Yes 40 mg = 1 M emoria e 40 MG 6-16 tab, PO, l Enteric 19:00: Daily, # Donnie n Coated 00 30 tab, 0 Tablet Refill(s), [Protonix] Pharmacy: [place] [id number] Tylenol No Notes: Do Memor ia 6-16 not exceed l 03:35: 4 gm/day. [place] 00 (Same as: Tylenol) Acetaminoph No Notes: Ludwin brannon en 325 MG / 6-16 (Same as: l Hydrocodone 03:35: [place] Tamanna nn Bitartrate 00 325/5) Do 5 MG Oral not exceed Tablet 4gm/day of [[place] acetaminop 5/325] hen. phenol 14 No Notes: Memori a MG/ML 6-15 Chlorasept l Mucosal 18:54: ic [place] Donnie n [place] 00 (Same as: Chlorasept ic, Sore Throat [place]) WASTE: F/P - Black; E - [facility] Trash Bin Insulin No Notes: Memoria Lispro 6-15 (Same as: l 16:30: Humalog ) [place] 00 Roll in palms of hands gently; Do not shake `vigorousl y. "Single Patient Use Only " WASTE: F/P - Black; E - [place] Trash Bin Stable for 28 days at room temperatur e. Expires in days from ____Date Insulin No Notes: Memoria Glargine 6-15 (Same as: l 15:30: Lantus) Do [place] 00 not hold insulin without contacting prescriber WASTE: F/P - Black; E - [place] Trash Bin "single patient use only" insulin, Yes 5 unit, Memori a isophane 6-15 SUB-Q, QPM l 14:12: [place] 00 Regular Yes See Memoria Insulin, 6-15 Instructio l Human 100 14:12: ns, [place] UNT/ML 00 Sliding Injectable scale Solution before meals based on BG result Non-Formula Yes PO, Daily, Memoria ry Home 6-15 Blood l Medication 14:12: pressure Her saravia 00 medication - pt unsure of name of medication and dose Insulin No Notes: Memoria Lispro 6-15 (Same as: l 14:11: Humalog ) Roll in palms of hands gently; Do not shake `vigorousl y. "Single Patient Use Only " WASTE: F/P - Black; E - [place] Trash Bin Stable for 28 days at room temperatur e. Expires in days from ____Date Glucagon 0 No 1 mg, Memoria 6-15 Route: IM, l 14:11: Drug form: [place] 00 PDR/INJ, PRN, Dosing Weight 43.6, kg, PRN Blood Glucose Results, Start date: 01/07/18 9:11:00 CDT, Duration: 30 day, Stop date: 02/06/18 9:10:00 CDT Dextrose No 25 gm, 50 Ludwin brannon 50% Syringe 6-15 mL, Route: l 14:11: IVP, Drug Form: INJ, Dosing Weight 43.6, kg, PRN, PRN Blood Glucose Results, Start date: 01/07/18 9:11:00 CDT, Duration: 30 day, Stop date: 02/06/18 9:10:00 CDT heparin No Notes: Memoria 6-15 porcine l 14:00: heparin Mupirocin No 1 appl, Memor ia 0.02 MG/MG 6-15 Route: l Topical 14:00: NASAL, [place] Ointment 00 Q12H, Drug form: OINT, Start date: 01/07/18 9:00:00 CDT, Duration: 5 day, Stop date: 01/11/18 21:00:00 CDT pneumococca 0 No Notes: Ludwin brannon l capsular 6-15 (Same as: l polysacchar 09:31: Pneumovax H ermann magdy type 1 58 23) vaccine / Refrigerat pneumococca e l capsular polysacchar magdy type 10A vaccine / pneumococca l capsular polysacchar magdy type 11A vaccine / pneumococca l capsular polysacchar magdy type 12F vaccine / pneumococca l capsular polysacchar Carafate 0 No Notes: May Mem oria 6-15 interfere l 09:30: w/enteral [place] 00 feeds - Take 1 hr before or 2 hr after antacids, dairy pdt, meals & minerals - On empty stomach. For patients unable to swallow tablet, dissolve in 10mL - 30mL of water or juice and stir before giving. (Same As: Carafate) Protonix 2017- No Notes: For Mem oria 6-15 IV push l 09:30: reconstitu te with 10 ml 0.9% sodium chloride and push over 2 minutes. (Same as: Protonix) Albuterol No Notes: Memori a 0.833 MG/ML 6-15 (Same as: l / 08:24: Duoneb) Ipratropium 00 [place] 0.167 MG/ML Inhalant Solution [DuoNeb] potassium No Notes: Memori a phosphate 6-15 (Same as: l 08:17: K Phosphate. ) 1 mMol phoshate has 1.47 mEq potassium Infuse over 4 hours Magnesium 2017- No Notes: Memori a Sulfate 6-15 WASTE: F/P l 08:17: - Sink; E - [employer] Trash Bin Potassium 2017- No Notes: Memori a Chloride 6-15 MUST be l 08:17: Diluted before use (Same as: KCl) MEDICATION WASTE Product Size: 40 mEq Product Wasted: 20 mEq Dextrose 2017- No 25 gm, 50 Ludwin brannon 50% Syringe 6-15 mL, Route: l 08:17: IVP, Drug Form: INJ, Dosing Weight 43.6, kg, PRN, PRN Blood Glucose Results, Start date: 01/07/18 3:17:00 CDT, Duration: 30 day, Stop date: 02/06/18 3:16:00 CDT Glucagon 2017- No 1 mg, Memoria 6-15 Route: IM, l 08:17: Drug form: PDR/INJ, PRN, Dosing Weight 43.6, kg, PRN Blood Glucose Results, Start date: 01/07/18 3:17:00 CDT, Duration: 30 day, Stop date: 02/06/18 3:16:00 CDT Insulin 2017- No Notes: Memoria (regular) 6-15 (Same as: l Titrate IV 08:17: Humulin R He rmann additive 00 and 100 unit + NovoLIN R) Sodium WASTE: F/P Chloride - Black; E 0.9% - (titrate) Municipal 99 mL Trash Bin (Do not shake) D5NS 1,000 No 1,000 mL, Me moria mL 6-15 Rate: 250 l 08:17: ml/hr, [place] 00 Infuse over: 4 hr, Route: IV, Dosing Weight 43.6 kg, Total Volume: 1,000, Start date: 01/07/18 3:17:00 CDT, Duration: 30 day, Stop date: 02/06/18 3:16:00 CDT, 1.43, m2 Sodium No 1,000 mL, Memori a Chloride 6-15 Rate: 250 l 0.9% IV 08:17: ml/hr, [place] 1,000 mL 00 Infuse over: 4 hr, Route: IV, Dosing Weight 43.6 kg, Total Volume: 1,000, When Finger stick blood glucose values remain ABOVE 250 mg/dL administer until BG is less than 250 mg/dL., Start date: 01/07/18 3:17:00 CDT, Duration:. .. Magnesium No Notes: Memori a Sulfate 6-15 WASTE: F/P l 05:10: - Sink; E [place] 00 - Municipal Trash Bin Potassium No Notes: Memori a Chloride 6-15 (Same as: l 05:10: KCL) [place] 00 Infuse no faster than 10 mEq/hr if given peripheral ly. Insulin No Notes: Memoria (regular) 6-15 (Same as: l Titrate IV 05:10: Humulin R He rmann additive 00 and 100 unit + NovoLIN R) Sodium WASTE: F/P Chloride - Black; E 0.9% - (titrate) Municipal 99 mL Trash Bin (Do not shake) potassium No Notes: Memori a phosphate 6-15 (Same as: l 05:10: K [place] 00 Phosphate. ) 1 mMol phoshate has 1.47 mEq potassium Infuse over 4 hours D5NS 1,000 No 1,000 mL, Me moria mL 6-15 Rate: 250 l 05:10: ml/hr, [place] 00 Infuse over: 4 hr, Route: IV, Dosing Weight 50 kg, Total Volume: 1,000, Start date: 01/07/18 0:10:00 CDT, Duration: 30 day, Stop date: 02/06/18 0:09:00 CDT, 1.56, m2 Sodium 2018-0 No 1,000 mL, Memori a Chloride 6-15 1000 l 0.9% 05:10: ml/hr, [place] (Bolus) IV 00 Infuse Over: 1 hr, Route: IV, 1,000, Drug form: INJ, ONCE, Priority: STAT, Dosing Weight 50 kg, Start date: 01/07/18 0:10:00 CDT, Stop date: 01/07/18 0:10:00 CDT Calcium 2018-0 No 1,500 mL, Memor ia Chloride 6-15 2,000 l 0.0014 04:45: ml/hr, [place] MEQ/ML / 00 Route: IV, Potassium ONCE, Chloride Priority: 0.004 STAT, MEQ/ML / Dosing Sodium Weight 50 Chloride kg, Start 0.103 date: MEQ/ML / 01/06/18 Sodium 23:45:00 Lactate CDT, Stop 0.028 date: MEQ/ML 01/06/18 Injectable 23:45:00 Solution CDT Saline No Notes: Memoria Flush 0.9% 6-15 (Same as: l 04:45: BD Posiflush) Glucagon 2018 No 1 mg, Memoria 6-15 Route: IM, l 03:58: Drug form: [place] PDR/INJ, PRN, kg, PRN Blood Glucose Results, Start date: 01/06/18 22:58:00 CDT, Duration: 30 day, Stop date: 02/05/18 22:57:00 CDT Ondansetron 0 No Notes: Ludwin brannon 6-15 (Same as: l 03:58: Zofran) MEDICATION WASTE Product Size: 4 mg Product Wasted: ___ mg Dextrose 2018- No 25 gm, 50 Ludwin brannon 50% Syringe 6-15 mL, Route: l 03:58: IVP, Drug Form: INJ, kg, PRN, PRN Blood Glucose Results, Start date: 01/06/18 22:58:00 CDT, Duration: 30 day, Stop date: 02/05/18 22:57:00 CDT Saline 2017- No Notes: Memoria Flush 0.9% 6-15 (Same as: l 03:58: BD [place] 00 Posiflush) Sodium 2017-0 No 1,000 mL, Memori a Chloride 6-15 1000 l 0.9% 03:58: ml/hr, [place] (Bolus) IV 00 Infuse Over: 1 hr, Route: IV, 1,000, Drug form: INJ, ONCE, Priority: STAT, kg, Start date: 01/06/18 22:58:00 CDT, Stop date: 01/06/18 22:58:00 CDT insulin Yes 3U Inject [address] [facility] regular 6-15 [facility] (HUMULIN 00:00: subcutaneo Med ical R,NOVOLIN 00 usly 2 Center R) 100 (two) unit/mL times injection daily as needed. insulin 2016-07 Yes [id number] 5U inject 5 Un dg aspart 1-02 Units ity of (NOVOLOG 00:[place]: [place] FLEXPEN[place] 00 skin 3 Medical 100 unit/mL (three) Branc h injection times daily before meals. + sliding scale as mentioned upto 8 units with meals insulin 2016-07 Yes [id number] 5U inject 5 Un dg aspart 1-02 Units ity of (NOVOLOG 00:00: [place] FLEXPEN[place] 00 skin 3 Medical 100 unit/mL (three) Branc h injection times daily before meals. + sliding scale as mentioned upto 8 units with meals insulin 2016-07 Yes [id number] 5U inject 5 Un dg aspart 1-02 Units ity of (NOVOLOG 00:00: [place] FLEXPEN[place] 00 skin 3 Medical 100 unit/mL (three) Branc h injection times daily before meals. + sliding scale as mentioned upto 8 units with meals insulin 2016-07 Yes [id number] 5U inject 5 Un dg aspart 1-02 Units ity of (NOVOLOG 00:00: [place] FLEXPEN[place] 00 skin 3 Medical 100 unit/mL (three) Branc h injection times daily before meals. + sliding scale as mentioned upto 8 units with meals insulin 2016-07 Yes [id number] 5U inject 5 Un dg aspart 1-02 Units ity of (NOVOLOG 00:00: [place] FLEXPEN[place] 00 skin 3 Medical 100 unit/mL (three) Branc h injection times daily before meals. + sliding scale as mentioned upto 8 units with meals insulin 2016-07 2020- No [id number] 5U inject 5 U nivers aspart 1-02 02-19 Units ity of (NOVOLOG 00:00: 00:00 under the [place] as FLEXPEN) 00 :00 skin 3 Medical 100 unit/mL (three) Branc h injection times daily before meals. + sliding scale as mentioned upto 8 units with meals nitroglycer 2017-[address] 1 Uni [...] Immunizations Ordered Filled Immunization Date Status Comments [facility] e Immunization Name Name Influenza Virus 2017-08-30 Completed Universit y of Vaccine 00:00:00 [facility] Influenza Virus 2017-08-30 Completed Universit y of Vaccine 00:00:00 [facility] Influenza Virus 2017-08-30 Completed Universit y of Vaccine 00:00:00 [facility] Influenza Virus 2017-08-30 Completed Universit y of Vaccine 00:00:00 [facility] Influenza Virus 2017-08-30 Completed Universit y of Vaccine 00:00:00 [facility] Influenza Virus 2017-08-30 Completed Universit y of Vaccine 00:00:00 [facility] Influenza Virus 2017-08-30 Completed Universit y of Vaccine 00:00:00 [facility] Influenza Virus 2017-08-30 Completed Universit y of Vaccine 00:00:00 [facility] Influenza Virus 2017-08-30 Completed Universit y of Vaccine 00:00:00 [facility] Influenza Virus 2017-08-30 Completed Universit y of Vaccine 00:00:00 [facility] Influenza Virus 2017-08-30 Completed Universit y of Vaccine 00:00:00 [facility] Vital Signs Vital Name Observation Time Observation Value Comments Source HEIGHT 2019-12-03 00:00:00 167.6 cm WEIGHT 2019-12-03 00:00:00 50.485 kg HEIGHT 2019-12-03 00:00:00 167.6 cm WEIGHT 2019-12-03 00:00:00 50.485 kg Systolic blood 2019-09-13 21:59:00 141 mm[Hg] Univer sity of pressure [place] [facility] Diastolic blood 2019-09-13 21:59:00 72 mm[Hg] Unive rsity of pressure [place] [facility] Heart rate 2019-09-13 21:59:00 92 /min [facility] [place] [facility] Body temperature 2019-09-13 21:59:00 36.67 Bisi Univ ersity of [place] [facility] Respiratory rate 2019-09-13 21:59:00 20 /min Univ ersity of [place] [facility] Oxygen saturation in 2019-09-13 21:59:00 98 /min University of Arterial blood by [facility] clementine Pulse oximetry Branch Body height 2019-09-10 14:30:00 172.7 cm [facility] [place] [facility] Body weight 2019-09-10 14:30:00 51 kg [facility] [place] [facility] BMI 2019-09-10 14:30:00 17.10 kg/m2 [facility] [place] [facility] Systolic blood 2019-08-17 12:00:00 156 mm[Hg] Univer sity of pressure [place] [facility] Diastolic blood 2019-08-17 12:00:00 82 mm[Hg] Unive rsity of pressure [place] [facility] Heart rate 2019-08-17 12:00:00 91 /min [facility] [place] [facility] Respiratory rate 2019-08-17 12:00:00 15 /min Univ ersity [facility] [place] [facility] Oxygen saturation in 2019-08-17 12:00:00 97 /min University of Arterial blood by [facility] clementine Pulse oximetry Branch Body height 2019-08-17 10:18:00 167.6 cm [facility] [place] [facility] Body weight 2019-08-17 10:18:00 49.896 kg [facility] [place] [facility] BMI 2019-08-17 10:18:00 17.75 kg/m2 [facility] [place] [facility] Heart Rate 2018-01-08 17:05:00 [facility] Temperature Oral (F) 2018-01-08 17:05:[address] [facility] Systolic (mm Hg) 2018-01-08 17:05:00 Ludwin rial [place] Diastolic (mm Hg) 2018-01-08 17:05:00 Mem orial [place] Respitory Rate 2018-01-08 17:05:00 Memori al [place] Temperature Oral (F) 2018-01-08 13:08:00 98.4 F Memorial [place] Heart Rate 2018-01-08 13:08:00 [facility] [place] Respitory Rate 2018-01-08 13:08:00 Memori al [place] Systolic (mm Hg) 2018-01-08 13:08:00 Ludwin rial [place] Diastolic (mm Hg) 2018-01-08 13:08:00 Mem orial [place] Respitory Rate 2018-01-08 12:58:00 Memori al [place] Systolic (mm Hg) 2018-01-08 08:13:00 Ludwin rial [place] Diastolic (mm Hg) 2018-01-08 08:13:00 Mem orial [place] Heart Rate 2018-01-08 08:13:00 [facility] [place] Temperature Oral (F) 2018-01-08 08:13:00 98 F Memorial [place] Height 2018-01-07 08:14:00 167.64 cm Memorial [place] BMI Calculated 2018-01-07 08:14:00 Memori al [place] Weight 2018-01-07 08:14:00 [facility] [place] Systolic (mm Hg) 2018-01-07 07:21:00 Ludwin rial [place] Diastolic (mm Hg) 2018-01-07 07:21:00 Mem orial [place] Respitory Rate 2018-01-07 07:21:00 Memori al [place] Heart Rate 2018-01-07 07:21:00 [facility] [place] Temperature Oral (F) 2018-01-07 07:21:00 97.6 F Memorial [place] Heart Rate 2018-01-07 06:30:00 [facility] [place] Systolic (mm Hg) 2018-01-07 06:30:00 Ludwin rial [place] Diastolic (mm Hg) 2018-01-07 06:30:00 Mem orial [place] Respitory Rate 2018-01-07 06:30:00 Memori al [place] Temperature Oral (F) 2018-01-07 06:30:00 98.3 F [facility] [place] Heart Rate 2018-01-07 05:24:00 [facility] [place] Respitory Rate 2018-01-07 05:24:00 Carlos Becker Systolic (mm Hg) 2018-01-07 05:24:00 Ludwin Bansal Diastolic (mm Hg) 2018-01-07 05:24:00 Galina Bansal Height 2018-01-07 04:00:00 175.26 cm Tamar [place] BMI Calculated 2018-01-07 04:00:00 Carlos Becker Weight 2018-01-07 04:00:00 [facility] (F) 2018-01-07 04:00:00 98.9 F [facility] Procedures Procedure Date / Time Performing Clinician Source Performed AUTHORIZATION FOR RELEASE 2021-02-06 05:01:00 Doctor Unassigned, [facility] Name [facility] AUTHORIZATION FOR RELEASE 2019-10-03 05:01:00 Doctor Unassigned, [facility] Name [facility] POCT GLUCOSE (AUTOMATED) 2019-09-13 19:18:00 [facility] 2019-09-13 15:26:00 [facility] METABOLIC PANEL 2019-09-13 10:19:00 [facility] versity [facility] (NA, K, CL, CO2, GLUCOSE, [place] [facility] BUN, CREATININE, [place]) POCT GLUCOSE (AUTOMATED) 2019-09-13 09:51:00 Aislinn Hathaway [facility] POCT GLUCOSE (AUTOMATED) 2019-09-13 06:03:00 Aislinn Hathaway versity [facility] POCT GLUCOSE (AUTOMATED) 2019-09-13 03:30:00 Aislinn Hathaway versity [facility] POCT GLUCOSE (AUTOMATED) 2019-09-12 23:20:00 Trevor Lockhart [facility] POCT GLUCOSE (AUTOMATED) 2019-09-12 23:02:00 Trevor Lockhart [facility] POCT GLUCOSE (AUTOMATED) 2019-09-12 17:17:00 Trevor Lockhart [facility] POCT GLUCOSE (AUTOMATED) 2019-09-12 13:36:00 Trevor Lockhart [facility] BASIC METABOLIC PANEL 2019-09-12 11:16:00 Florin Zamudio [facility] (NA, K, CL, CO2, GLUCOSE, Sergei Delacruz Medica l Branch BUN, CREATININE, CA) POCT GLUCOSE (AUTOMATED) 2019-09-12 10:19:00 Trevor Lockhart [facility] POCT GLUCOSE (AUTOMATED) 2019-09-12 08:48:00 Trevor Lockhart [facility] BASIC METABOLIC PANEL 2019-09-12 05:49:00 Travis Morel [facility] (NA, K, CL, CO2, GLUCOSE, Medica l Branch BUN, CREATININE, CA) POCT GLUCOSE (AUTOMATED) 2019-09-12 05:34:00 Trevor Lockhart [facility] POCT GLUCOSE (AUTOMATED) 2019-09-12 02:37:00 Trevor Lockhart [facility] POCT GLUCOSE (AUTOMATED) 2019-09-11 23:38:00 Trevor Lockhart [facility] POCT GLUCOSE (AUTOMATED) 2019-09-11 21:34:00 Trevor Lockhart [facility] POCT GLUCOSE (AUTOMATED) 2019-09-11 18:20:00 Trevor Lockhart [facility] POCT GLUCOSE (AUTOMATED) 2019-09-11 17:11:00 Trevor Lockhart [facility] ECHO ROUTINE W/DOPPLER 2019-09-11 [facility] 2019-09-11 16:05:00 Travis Morel [facility] [facility] (NA, K, CL, CO2, GLUCOSE, Medica l Branch BUN, CREATININE, CA) POCT GLUCOSE (AUTOMATED) 2019-09-11 16:02:00 Trevor Lockhart [facility] POCT GLUCOSE (AUTOMATED) 2019-09-11 15:22:00 Trevor Lockhart [facility] CBC WITH DIFFERENTIAL 2019-09-11 14:06[facility] 2019-09-11 14:05:00 Trevor Lockhart [facility] POCT GLUCOSE (AUTOMATED) 2019-09-11 13:15:00 Trevor Lockhart [facility] BASIC METABOLIC PANEL 2019-09-11 12:07:00 [facility]ravis [facility] [place] (NA, K, CL, CO2, GLUCOSE, Medica l Branch BUN, CREATININE, CA) POCT GLUCOSE (AUTOMATED) 2019-09-11 12:07:00 Trevor Lockhart [facility] POCT GLUCOSE (AUTOMATED) 2019-09-11 11:06:00 Trevor Lockhart [facility] POCT GLUCOSE (AUTOMATED) 2019-09-11 10:09:00 Trevor Lockhart [facility] POCT GLUCOSE (AUTOMATED) 2019-09-11 08:57:00 Trevor Lockhart [facility] BASIC METABOLIC PANEL 2019-09-11 08:06:00 [facility]Travis [facility] [place] (NA, K, CL, CO2, GLUCOSE, Medica l Branch BUN, CREATININE, CA) POCT GLUCOSE (AUTOMATED) 2019-09-11 08:02:00 Trevor Lockhart [facility] POCT GLUCOSE (AUTOMATED) 2019-09-11 07:04:00 Trevor Lockhart [facility] POCT GLUCOSE (AUTOMATED) 2019-09-11 06:11:00 Trevor Lockhart [facility] POCT GLUCOSE (AUTOMATED) 2019-09-11 05:02:00 Trevor Lockhart [facility] BASIC METABOLIC PANEL 2019-09-11 04:06:00 [facility]is [facility] [place] (NA, K, CL, CO2, GLUCOSE, Medica l Branch BUN, CREATININE, CA) POCT GLUCOSE (AUTOMATED) 2019-09-11 04:01:00 Trevor Lockhart [facility] POCT GLUCOSE (AUTOMATED) 2019-09-11 03:06:00 Trevor Lockhart [facility] POCT GLUCOSE (AUTOMATED) 2019-09-11 02:49:00 Trevor Lockhart [facility] POCT GLUCOSE (AUTOMATED) 2019-09-11 02:23:00 Trevor Lockhart [facility] POCT GLUCOSE (AUTOMATED) 2019-09-11 02:00:00 Trevor Lockhart [facility] BASIC METABOLIC PANEL 2019-09-11 00:01:00 Travis [facility]l [facility] [place] (NA, K, CL, CO2, GLUCOSE, Medica l Branch BUN, CREATININE, CA) ACTIVATED PARTIAL 2019-09-11 [facility] 2019-09-10 23:50:00 Trevor Lockhart [facility] POCT GLUCOSE (AUTOMATED) 2019-09-10 22:38:00 Trevor Lockhart [facility] SPUTUM CULTURE 2019-09-10 21:37:00 [facility] AC PANEL 21 + LACTIC ACID 2019-09-10 21:03:00 [facility]-10 [facility]:02[facility]OLIC PANEL 2019-09-10 21:02:00 Travis [facility]l [facility] [place] (NA, K, CL, CO2, GLUCOSE, Medica l Branch BUN, CREATININE, CA) POCT GLUCOSE (AUTOMATED) 2019-09-10 20:56:00 Trevor Lockhart [facility] PROTHROMBIN TIME / INR 2019-09-10 17:33:00 Brant [facility] ACTIVATED PARTIAL 2019-09-10 [facility]A SCREEN BY 2019-09-10 17:29:00 Brant [facility] PCR, [facility] TROPONIN I 2019-09-10 17:28:00 [facility] BASIC METABOLIC PANEL 2019-09-10 17:28:00 Travis [facility] [place] (NA, K, CL, CO2, GLUCOSE, Medica l Branch BUN, CREATININE, CA) POCT GLUCOSE (AUTOMATED) 2019-09-10 13:57:00 Trevor Lockhart [facility] ABG+COOX+NA+K+GLU+CA2+ 2019-09-10 13:48:00 Kalyn Laguerre [facility] TROPONIN I 2019-09-10 12:42:00 Kati Gross [facility] BASIC METABOLIC PANEL 2019-09-10 12:42:00 Travis Morel [facility] (NA, K, CL, CO2, GLUCOSE, Medica l Branch BUN, CREATININE, CA) POCT GLUCOSE (AUTOMATED) 2019-09-10 12:23:00 Trevor Lockhart [facility] POCT GLUCOSE(AGE >30DAYS) 2019-09-10 12:15:00 Travis Morel [facility] POCT GLUCOSE(AGE >30DAYS) 2019-09-10 10:15:00 Travis Morel [facility] BASIC METABOLIC PANEL 2019-09-10 10:14:00 [facility] (NA, K, CL, CO2, GLUCOSE, Medica l Branch BUN, CREATININE, CA) POCT GLUCOSE (AUTOMATED) 2019-09-10 10:11:00 Trevor Lockhart [facility] POCT GLUCOSE (AUTOMATED) 2019-09-10 10:08:00 Trevor Lockhart [facility] POCT GLUCOSE (AUTOMATED) 2019-09-10 08:45:00 Trevor Lockhart [facility] POCT GLUCOSE (AUTOMATED) 2019-09-10 07:44:00 Trevor Lockhart [facility] POCT GLUCOSE(AGE >30DAYS) 2019-09-10 07:40:00 Travis Morel [facility] BASIC METABOLIC PANEL 2019-09-10 07:12:00 Travis Morel [facility] (NA, K, CL, CO2, GLUCOSE, Medica l Branch BUN, CREATININE, CA) POCT GLUCOSE (AUTOMATED) 2019-09-10 06:41:00 Trevor Lockhart [facility] POCT GLUCOSE(AGE >30DAYS) 2019-09-10 06:40:00 Travis Morel [facility] POCT GLUCOSE (AUTOMATED) 2019-09-10 05:35:00 Trevor Lockhart [facility] POCT GLUCOSE (AUTOMATED) 2019-09-10 04:33:00 Trevor Lockhart [facility] POCT GLUCOSE(AGE >30DAYS) 2019-09-10 04:30:00 Travis Morel [facility] BASIC METABOLIC PANEL 2019-09-10 04:09:00 Travis Morel [facility] (NA, K, CL, CO2, GLUCOSE, Medica l Branch BUN, CREATININE, CA) POCT GLUCOSE (AUTOMATED) 2019-09-10 03:02:00 Trevor Lockhart [facility] POCT GLUCOSE(AGE >30DAYS) 2019-09-10 03:00:00 Travis Morel [facility] ABG+COOX+NA+K+GLU+CA2+ 2019-09-10 01:48:00 Travis Morel [facility] POCT GLUCOSE (AUTOMATED) 2019-09-10 00:32:00 Travis Morel [facility] BASIC METABOLIC PANEL 2019-09-10 00:30:00 [facility] (NA, K, CL, CO2, GLUCOSE, Medica l Branch BUN, CREATININE, CA) XR KUB 2019-09-10 00:29:15 Travis Morel [facility] LACTIC ACID WHOLE BLOOD 2019-09-09 23:30:00 Travis Morel [facility] TROPONIN I 2019-09-09 23:29:00 Travis Morel [facility] POCT GLUCOSE (AUTOMATED) 2019-09-09 23:23:00 Travis Morel [facility] ABG+COOX+NA+K+GLU+CA2+ 2019-09-09 22:44:00 Travis Morel [facility] XR CHEST 1 VW 2019-09-09 22:38:57 Travis Morel [facility] POCT GLUCOSE (AUTOMATED) 2019-09-09 22:14:00 Travis Morel [facility] POCT GLUCOSE(AGE >30DAYS) 2019-09-09 22:10:00 Travis Morel [facility] PHOSPHORUS 2019-09-09 21:58:00 Travis Morel [facility] MAGNESIUM 2019-09-09 21:58:00 Travis Morel [facility] OSMOLALITY SERUM 2019-09-09 21:58:00 Travis Morel [facility] ity [facility] BETA HYDROXY-BUTYRATE 2019-09-09 21:58:00 Travis Morel [facility] BASIC METABOLIC PANEL 2019-09-09 21:58:00 Travis Morel [facility] (NA, K, CL, CO2, GLUCOSE, Medica l Branch BUN, CREATININE, CA) GLYCOSYLATED HEMOGLOBIN 2019-09-09 21:58:00 Travis Morel [facility] (A1C) [facility] URINALYSIS 2019-09-09 21:58:00 Travis Morel [facility] EKG-12 LEAD 2019-09-09 21:44:28 Travis Morel [facility] POCT GLUCOSE(AGE >30DAYS) 2019-09-09 21:14:00 Travis Morel [facility] POCT GLUCOSE (AUTOMATED) 2019-09-09 21:12:00 Travis Morel [facility] ABG+COOX+NA+K+GLU+CA2+ 2019-09-09 21:00:00 [facility] LACT[facility] ACID WHOLE BLOOD 2019-09-09 21:00:00 Travis Morel [facility] XR CHEST 1 VW 2019-09-09 20:47:11 Travis Morel [facility] COMP. METABOLIC PANEL 2019-09-09 20:35:00 Travis Morel [facility] ([id number]) [facility] TROPONIN I 2019-09-09 20:01:00 Travis Morel [facility] CBC WITH DIFFERENTIAL 2019-09-09 20:01:00 [facility] N-TERMINAL PRO-BNP 2019-09-09 20:01:00 [facility] EKG-12 LEAD 2019-09-09 19:56:01 MorTravis lackey [facility] TROPONIN I 2019-08-17 10:57:00 Du Bess [facility] COMP. METABOLIC PANEL 2019-08-17 10:57:00 Du Bess [facility] ([id number]) [facility] CBC WITH DIFFERENTIAL 2019-08-17 10:57:00 Du Bess [facility] PROTHROMBIN TIME / INR 2019-08-17 10:57:00 Du Bess [facility] LIPASE 2019-08-17 10:57:00 Du Bess [facility] XR CHEST 1 VW 2019-08-17 10:36:08 Du Bess [facility] MEDICATION HISTORY 2019-03-23 05:01:00 Doctor Unassigned, [facility] RECONCILIATION FORM [place] [facility] Cardiac catheter without Memoria l [place] angiogram<sup>1</sup> Plan of Care Planned Activity Planned Date Details Comments Source Future Scheduled 2023-03-[address] [facility] 00:00:00 (Season Ended) [code = Medic md Center INFLUENZA VACCINE (Season Ended)] Future Scheduled 2022-07-[address] [facility] 00:00:00 (12+) [code = Medical Center DEPRESSION SCREENING (12+)] Future Scheduled 2020-12-[address] [facility] Test 00:00:00 Counseling and Medical Cente r Screening (12+) [code = Tobacco Cessation Counseling and Screening (12+)] Future Scheduled 2020-06-[address] 00[facility]00 measurement (procedure) [facility] [code = 41926211] Future Scheduled 2014 SHINGLES VACCINES ([address] [facility] 00:00:00 2) [code = SHINGLES Medical [place] VACCINES (1 of 2)] Future Scheduled 1999 Lipid panel (procedure) [facility] 00:00:00 [code = 76737634] Medical Ce nter Future Scheduled 1983 DTAP/TDAP/TD VACCINES [facility] 00:00:00 (1 - Tdap) [code = Medical C enter DTAP/TDAP/TD VACCINES (1 - Tdap)] Future Scheduled 1982 HEPATITIS C SCREENING [facility] 00:00:00 [code = HEPATITIS C Medical Center SCREENING] Future Scheduled 1974 DIABETIC EYE EXAM [code [facility] 00:00:00 = DIABETIC EYE EXAM] Medical Center Future Scheduled 1974 Urine screening for [facility] 00:00:00 protein (procedure) [facility] [code = 695058622] Future Scheduled [address] [facility] Test 00:00:00 0-64 YRS (1 - PCV) Medical C enter [code = PNEUMOCOCCAL VACCINE 0-64 YRS (1 - PCV)] Future Scheduled 1964 COVID-19 VACCINE (#1) [facility] 00:00:00 [code = COVID-[address] VACCINE (#1)] Future Scheduled 1964 CT Colonography (combo) [facility] Test 00:00:00 [code = CT Colonography [facility] (combo)] Future Scheduled 1964 Screening for malignant [facility] Test 00:00:00 neoplasm of colon Medical Ce nter (procedure) [code = 619123278] Future Scheduled 1964 Screening for malignant [facility] Test 00:00:00 neoplasm of colon Medical Ce nter (procedure) [code = 835760834] Future Scheduled 1964 Screening for malignant [facility] Test 00:00:00 neoplasm of colon Medical Ce nter (procedure) [code = 642487375] Future Scheduled 1964 Screening for malignant [facility] Test 00:00:00 neoplasm of colon Medical Ce nter (procedure) [code = 279493997] Future Scheduled 1964 Sigmoidoscopy [code = [facility] Sigmoidoscopy] Medical Cente r Encounters Start End Encounter Admission Attending Care Care Encounter Source Date/Time Date/Time Type Type Clinicians Facility Department ID 2019-12-03 Inpatient ER [facility] Medical ICU [id number] SLE 11:22:11 NASRIN ALMANZAR 2022-11-07 2022-11-07 Outpatient [facility] PRIV PRIV [id number] [facility] 00:00:00 00:00:00 n_J [id number] Medica l 2021-04-22 2021-04-22 Outpatient [facility] PRIV PRIV [id number] [facility] 00:00:00 00:00:00 n_J [id number] Medica l 2021-02-06 2021-02-06 Orders Doctor AMOR [id number] Univers 00:00:00 00:00:00 Only Unassigned, ADRIANA [id number] ity of [place] [facility] 4.2.7.2.686 Nas as [id number] [address] 2019-11-05 2019-11-05 Patient Wen Alex Sarah [id number] Univers 00:00:00 00:00:00 Outreach E Melendez [id number] i [place] [id number] [address] 2019-10-03 2019-10-03 Orders Doctor AMOR [id number] Univers 00:00:00 00:00:00 Only Unassigned, ADRIANA [id number] ity of [place] [facility] 4.2.7.2.686 Nas as [id number] [address] 2019-09-21 2019-09-21 Patient Wen Alex Sarah [id number] Univers 00:00:00 00:00:00 Outreach E Melendez [id number] [place] [id number] [address] 2019-09-14 2019-09-14 Transition Sarah Boateng [id number] Univers 00:00:00 00:00:00 of Care Stephany Melendez [id number] [place] [id number] [address] 2019-09-09 2019-09-13 [facility] Travis Morel 1.2.8 [id number] Univers 13:40:54 18:22:00 Encounter LockhartTrevor Adriana 350.1.13. 10 ity of [place] Hath[facility] 4.2.7.2.[address] [place] [address] [phone] [facility] [address] Branch 2019-09-09 2019-09-13 Inpatient X RIVAS [facility] DULCE [id number] Univers 13:40:54 18:22:00 AISLINN ity [facility] 2019-08-17 2019-08-17 Emergency X ALLY [facility] ERT [id number] Univers 04:10:57 06:40:00 ANTONIOHATTIEHONEY ity [facility] 2019-08-17 2019-08-17 Emergency [facility] [id number] Univers 04:10:57 06:40:00 Du Jaquez Elton 350.1.13.10 [place] [phone] [facility] 084 Branch 2019-03-23 2019-03-23 Orders Doctor AMOR 1.2.840.114 [id number] Univers 00:00:00 00:00:00 Only Unassigned, ADRIANA 350.1.13.10 ity of [place] [facility] 4.2.7.2.686 Nas as [phone] [facility] 009 Branch 2019-03-01 2019-03-01 Telephone Salena Beasley 1.2.840.114 [id number] Univers 00:00:00 00:00:00 [facility] 350.1.13.10 it y [place] [id number] [facility] 362 Branch 2019-02-27 2019-02-27 Telephone Salena Beasley 1.2.840.114 [id number] Univers 00:00:00 00:00:00 [facility] 350.1.13.10 it y [place] [id number] [facility] 362 [place] 2019-02-22 2019-02-22 Telephone Tariq [facility] [id number] Univers 00:00:00 00:00:00 [facility] 350.1.13.10 ity of [place] 4.2.7.2.686 Patrick Rivera [phone] [place] 2[address] Branch Office Building 2018-01-07 2018-01-08 Inpatient [facility] [id number] Memoria 07:45:00 21:36:00 r [place] [address] [facility] 2018-01-07 2018-01-08 Outpatient LUIZA Duncan [place] [id number] 02:45:00 16:36:00 Jaswinder 66 Fa 2018-01-07 2018-01-07 Emergency [facility] [id number] Memoria 03:39:00 07:22:00 r Rolf 00 l [facility] 2018-01-06 2018-01-[address] [id number] 22:39:00 02:22:00 Leobardo 00 Frank Results Test Description Test Time Test Comments Results Result Sourc e Comments TISSUE EXAM 2019-12-12 Surgical Pathology Report 17:29:00 Case: [id number] Authorizing Provider: Jorge Goodwin, Collected: 12/07/2019 08:30 AM Ordering Location: [address] Received: 12/07/2019 01:30 PM Service Pathologist: [...] stains. Immunohistochemistry technical testing was performed at [place] [facility], Pathology Laboratory where it was developed and [...] high complexity clinical laboratory testing. CPT CODE: 31421; 23498 X 2; 29217 X 2 Addendum electronically signed by Zainab [...] ADDENDUM REPORT Signing Pathologist Direct Phone Line: [phone] y signed by Zainab Snider MD on 12/08/2019 at 5:16 [id number] X 3; [id number]: Upper endoscopy, biopsyPre and postop diagnosis: dysphagiaA. [...] included the use of immunohistochemistry or special stains.Yoel lakhani Slides Examined: In-house known positive controls were evaluated along with the test tissue. These control slides run alongside of the patients sample show appropriate staining. Internal positive and negative controls when available are evaluated Immunohistochemistry technical testing was performed at [place] [facility], Pathology Laboratory where it was developed and [...] 1095) No growth in 5 days BLOOD [id number] 14:00:00 Test Item Value Reference Range Interpretation Comments CULTURE (BEAKER) (test No growth in 5 days code = 1095) POCT-GLUCOSE [id number] 12:44:00 Test Item Value Reference Range Interpretation Comments POC-GLUCOSE METER 167 mg/dL 70-110 H : TESTED A T [facility] 6720 (BEAKER) (test code = [facility], 1538) 49133: Condemnation Engineer/Techni sebastian ID = [id number] for FA LOUIS, TERI POCT-GLUCOSE [id number] 08:48:00 Test Item Value Reference Range Interpretation Comments POC-GLUCOSE METER 204 mg/dL 70-110 H : TESTED A T [facility] 6720 (BEAKER) (test code = [facility], 1538) 41782: Condemnation Engineer/Techni sebastian ID = [id number] for FA ITH, TERI [id number] 04:30:00 Test Item Value Reference Range Interpretation Comments PHOSPHORUS (BEAKER) (test code = 3.0 mg/dL 2.3-4.7 604) Condemnation Engineer ID - MIRANDA [id number] 04:30:00 Test Item Value Reference Range Interpretation Comments MAGNESIUM (BEAKER) (test code = 1.6 mg/dL 1.6-2.6 627) Condemnation Engineer ID Soheila JEAN WBASIC METABOLIC [id number] 04:30:00 Test Item Value Reference Range Interpretation [...] S NOT APPLICABLE FOR DIALYSIS PATIEN TS. Condemnation Engineer ID Soheila JEAN WHEPATIC FUNCTION [id number] 04:30:00 Test Item Value Reference Range Interpretation [...] (test code = 11 U/L 6-55 347) Condemnation Engineer ID Soheila JEAN WCBC W/PLT COUNT & AUTO [id number] 03:54:00 Test Item Value Reference Range Interpretation [...] PERCENT (BEAKER) (test code = 2801) POCT-GLUCOSE [id number] 22:40:00 Test Item Value Reference Range Interpretation Comments POC-GLUCOSE METER 41 mg/dL 70-110 L : TESTED A T [facility] 6720 (BEAKER) (test code = [facility], [facility]8) 33414: Condemnation Engineer/Techni sebastian ID = [id number] for MIRANDA KEENAN POCT-GLUCOSE [id number] 21:12:00 Test Item Value Reference Range Interpretation Comments POC-GLUCOSE METER 94 mg/dL 70-110 : TESTED A T [facility] 6720 (BEAKER) (test code = [facility], [facility]) 57115: Condemnation Engineer/Techni sebastian ID = [id number] for SARAH RAO POCT-GLUCOSE [id number] 17:38:00 Test Item Value Reference Range Interpretation Comments POC-GLUCOSE METER 156 mg/dL 70-110 H : TESTED A T [facility] 6720 ([facility]) (test code = [facility], [facility]) 57321: Condemnation Engineer/Techni sebastian ID = [id number] for CHARLIE MONTEZ [id number] 14:53:00 Test Item Value Reference Range Interpretation Comments FERRITIN (BEAKER) (test Ferr itin: 78 code = 361) ng/mLReference Range: 24 - 380 ng/mLTest ing performed at [facility] . POCT-GLUCOSE [id number] 12:01:00 Test Item Value Reference Range Interpretation Comments POC-GLUCOSE METER 115 mg/dL 70-110 H : TESTED A T [facility] 6720 (BEAKER) (test code = [facility], [facility]) 08141: Condemnation Engineer/Techni sebastian ID = [id number] for ST BRENNON TIDWELLA POCT-GLUCOSE [id number] 09:18:00 Test Item Value Reference Range Interpretation Comments POC-GLUCOSE METER 251 mg/dL 70-110 H : TESTED A T [facility] 6720 (BEAKER) (test code = [facility], [facility]) 81535: Condemnation Engineer/Techni sebastian ID = [id number] for SAGE GREEN POCT-GLUCOSE [id number] 08:11:00 Test Item Value Reference Range Interpretation Comments POC-GLUCOSE METER 294 mg/dL 70-110 H : TESTED A T [facility] 6720 (BEAKER) (test code = EDUARDO Sepulveda [place], 1538) 18458: Condemnation Engineer/Techni sebastian ID = [id number] for BRONWYN ROSARIO [id number] 04:16:00 Test Item Value Reference Range Interpretation Comments PHOSPHORUS (BEAKER) (test code = 3.2 mg/dL 2.3-4.7 604) Condemnation Engineer ID - [id number] 04:16:00 Test Item Value Reference Range Interpretation Comments MAGNESIUM (BEAKER) (test code = 1.7 mg/dL 1.6-2.6 627) Condemnation Engineer ID - LABASIC METABOLIC [id number] 04:16:00 Test Item Value Reference Range Interpretation [...] S NOT APPLICABLE FOR DIALYSIS PATIEN TS. Condemnation Engineer ID - LAHEPATIC FUNCTION [id number] 04:16:00 Test Item Value Reference Range Interpretation [...] (test code = 13 U/L 6-55 347) Condemnation Engineer ID - LACBC W/PLT COUNT & AUTO [id number] 03:54:00 Test Item Value Reference Range Interpretation [...] PERCENT (BEAKER) (test code = 2801) POCT-GLUCOSE [id number] 21:19:00 Test Item Value Reference Range Interpretation Comments POC-GLUCOSE METER 137 mg/dL 70-110 H : TESTED A T [facility] 6720 (BEAKER) (test code = [facility], 1538) 56249: Condemnation Engineer/Techni sebastian ID = [id number] for SARAH LABOY POCT-GLUCOSE [id number] 17:18:00 Test Item Value Reference Range Interpretation Comments POC-GLUCOSE METER 128 mg/dL 70-110 H : TESTED A T [facility] 6720 (BEAKER) (test code = [facility], 1538) 36039: Condemnation Engineer/Techni sebastian ID = [id number] for ALEJANDRO ESPINAL [id number] 12:08:00 Test Item Value Reference Range Interpretation Comments MAGNESIUM (BEAKER) 1.9 mg/dL 1.6-2.6 Specimen moderately (test code = 627) hemolyzed Condemnation Engineer ID Soheila LAMAS [id number] 12:08:00 Test Item Value Reference Range Interpretation Comments PHOSPHORUS (BEAKER) 2.3 mg/dL 2.3-4.7 Specimen moderately (test code = 604) hemolyzed Condemnation Engineer ID Soheila LAMAS FBASIC METABOLIC [id number] 12:08:00 Test Item Value Reference Range Interpretation [...] S NOT APPLICABLE FOR DIALYSIS PATIEN TS. Condemnation Engineer ID - [place] FPOCT-GLUCOSE [id number] 11:32:00 Test Item Value Reference Range Interpretation Comments POC-GLUCOSE METER 156 mg/dL 70-110 H : TESTED A T [facility] 6720 (BEAKER) (test code = [facility], 1538) 37416: Condemnation Engineer/Techni sebastian ID = [id number] for JOSE C ALVES SARS-COV2/RT-PCR ([facility])2019-12-06 11:20:00 Test Item Value Reference Range Interpretation Comments SARS-COV2/RT-PCR (test code = Negative Not Detected, Negative [id number]) SARS-COV-2 PERFORMING LAB CPL (test code = 5185498) POCT-GLUCOSE [id number] 07:52:00 Test Item Value Reference Range Interpretation Comments POC-GLUCOSE METER 251 mg/dL 70-110 H : TESTED A T [facility] 6720 (BEAKER) (test code = [facility], 1538) 24479: Condemnation Engineer/Techni sebastian ID = [id number] for ALEJANDRO ESPINAL [id number] 04:17:00 Test Item Value Reference Range Interpretation Comments MAGNESIUM (BEAKER) 1.8 mg/dL 1.6-2.6 Specimen slightly (test code = 627) hemolyzed Condemnation Engineer ID - MILAGRO [id number] 04:17:00 Test Item Value Reference Range Interpretation Comments PHOSPHORUS (BEAKER) 2.1 mg/dL 2.3-4.7 L Specimen slightly (test code = 604) hemolyzed Condemnation Engineer ID - PIAYA LBASIC METABOLIC [id number] 04:17:00 Test Item Value Reference Range Interpretation [...] S NOT APPLICABLE FOR DIALYSIS PATIEN TS. Condemnation Engineer ID - PIAYA LHEPATIC FUNCTION [id number] 04:17:00 Test Item Value Reference Range Interpretation [...] Specimen slightly (test code = 347) hemolyzed Condemnation Engineer ID - PIAYA JAZ, TIBC, % SAT. (WITHOUT FERRITIN)2019-12-06 04:15:00 Test Item Value Reference Range Interpretation Comments IRON (BEAKER) (test code = 547) 102.0 ug/dL 40.0-160.0 TOTAL IRON BINDING CAPACITY 260 ug/dL 250-450 (BEAKER) (test code = 769) IRON % SATURATION (2) (BEAKER) 39 % 20-55 (test code = 2590) Condemnation Engineer ID - MILAGRO LRETICULOCYTE [id number] 03:53:00 Test Item Value Reference Range Interpretation Comments RETICULOCYTE COUNT PCT (BEAKER) (test 0.9 % 0.5-1.8 code = 575) Condemnation Engineer ID - [id number] W/PLT COUNT & AUTO [id number] 03:53:00 Test Item Value Reference Range Interpretation [...] 0-1 PERCENT (BEAKER) (test code = 2801) [id number] 22:22:00 Test Item Value Reference Range Interpretation Comments PHOSPHORUS (BEAKER) (test code = 1.9 mg/dL 2.3-4.7 L 604) Condemnation Engineer ID - [id number] 22:22:00 Test Item Value Reference Range Interpretation Comments MAGNESIUM (BEAKER) (test code = 1.8 mg/dL 1.6-2.6 627) Condemnation Engineer ID - BSBASIC METABOLIC [id number] 22:22:00 Test Item Value Reference Range Interpretation [...] S NOT APPLICABLE FOR DIALYSIS PATIEN TS. Condemnation Engineer ID - BSPOCT-GLUCOSE [id number] 20:47:00 Test Item Value Reference Range Interpretation Comments POC-GLUCOSE METER 215 mg/dL 70-110 H : TESTED A T [facility] 6720 (BEAKER) (test code = [facility], 1538) 21994: Condemnation Engineer/Techni sebastian ID = [id number] for MARITZA DIAS POCT-GLUCOSE [id number] 17:46:00 Test Item Value Reference Range Interpretation Comments POC-GLUCOSE METER 93 mg/dL 70-110 : TESTED A T [facility] 6720 (BEAKER) (test code = [facility], 1538) 7[address]: Condemnation Engineer/Techni sebastian ID = [id number] for Lidia chapmanrBony POCT-GLUCOSE [id number] 15:06:00 Test Item Value Reference Range Interpretation Comments POC-GLUCOSE METER 106 mg/dL 70-110 : TESTED A T [facility] 6720 (BEAKER) (test code = [facility], 1538) 67288: Condemnation Engineer/Techni sebastian ID = [id number] for maríaBony chun [id number] 13:15:00 Test Item Value Reference Range Interpretation Comments POTASSIUM (BEAKER) (test code = 3.2 meq/L 3.5-5.1 L 379) Condemnation Engineer ID - [id number] 13:15:00 Test Item Value Reference Range Interpretation Comments MAGNESIUM (BEAKER) (test code = 2.1 mg/dL 1.6-2.6 627) Condemnation Engineer ID - [id number] 13:15:00 Test Item Value Reference Range Interpretation Comments PHOSPHORUS (BEAKER) (test code = 2.1 mg/dL 2.3-4.7 L 604) Condemnation Engineer ID - [id number] 13:15:00 Test Item Value Reference Range Interpretation Comments GLUCOSE RANDOM (BEAKER) (test code = 84 mg/dL 70-105 652) Condemnation Engineer ID - NTPBASIC METABOLIC [id number] 13:15:00 Test Item Value Reference Range Interpretation [...] S NOT APPLICABLE FOR DIALYSIS PATIEN TS. Condemnation Engineer ID - NTPPOCT-GLUCOSE [id number] 12:29:00 Test Item Value Reference Range Interpretation Comments POC-GLUCOSE METER 99 mg/dL 70-110 : [facility] ([facility]) (test code = [facility], 153) 386[address]: Condemnation Engineer/Techni sebastian ID = [id number] for GARZ A, PATEL POCT-GLUCOSE [id number] 09:17:00 Test Item Value Reference Range Interpretation Comments POC-GLUCOSE METER 302 mg/dL 70-110 H : [facility] 67[facility] ([facility]) (test code = [facility], 153) 7[address]: Condemnation Engineer/Techni sebastian ID = [id number] for GA RZA, PATEL POCT-GLUCOSE [id number] 09:12:00 Test Item Value Reference Range Interpretation Comments POC-GLUCOSE METER 461 mg/dL 70-110 HH : Notified RN/MD: ([facility]) (test code = TESTED AT [facility] 6720 153) [facility], [address]: Condemnation Engineer/Techni sebastian ID = [id number] for AD AMS, RAUL BASIC METABOLIC [id number] 06:59:00 Test Item Value Reference Range Interpretation [...] S NOT APPLICABLE FOR DIALYSIS PATIEN TS. Condemnation Engineer ID - [id number] 06:57:00 Test Item Value Reference Range Interpretation Comments PHOSPHORUS (BEAKER) (test code = 1.4 mg/dL 2.3-4.7 LL 604) Condemnation Engineer ID - [id number] 06:06:00 Test Item Value Reference Range Interpretation Comments MAGNESIUM (BEAKER) (test code = 2.0 mg/dL 1.6-2.6 627) Condemnation Engineer ID - HERBAYA LHEPATIC FUNCTION [id number] 06:06:00 Test Item Value Reference Range Interpretation [...] (test code = 14 U/L 6-55 347) Condemnation Engineer ID - PIAYA LCBC W/PLT COUNT & AUTO [id number] 04:11:00 Test Item Value Reference Range Interpretation [...] PERCENT (BEAKER) (test code = 2801) POCT-GLUCOSE [id number] 22:25:00 Test Item Value Reference Range Interpretation Comments POC-GLUCOSE METER 151 mg/dL 70-110 H : TESTED A T [facility] 6720 (BEAKER) (test code = [place]ARDO Derick [place], 1538) [address]: Condemnation Engineer/Techni sebastian ID = [id number] for AD AMS, RAUL [id number] 21:59:00 Test Item Value Reference Range Interpretation Comments MAGNESIUM (BEAKER) 2.0 mg/dL 1.6-2.6 Specimen slightly (test code = 627) hemolyzed Condemnation Engineer ID - [id number] 21:59:00 Test Item Value Reference Range Interpretation Comments PHOSPHORUS (BEAKER) 1.7 mg/dL 2.3-4.7 L Specimen slightly (test code = 604) hemolyzed Condemnation Engineer ID - BSBASIC METABOLIC [id number] 21:59:00 Test Item Value Reference Range Interpretation [...] S NOT APPLICABLE FOR DIALYSIS PATIEN TS. Condemnation Engineer ID - BSPOCT-GLUCOSE [id number] 18:08:00 Test Item Value Reference Range Interpretation Comments POC-GLUCOSE METER 191 mg/dL 70-110 H : TESTED A T [facility] 6720 (BEAKER) (test code = [facility], [facility]8) 0[address]: Condemnation Engineer/Techni sebastian ID = [id number] for Mo woody, Conrado POCT-GLUCOSE [id number] 17:22:00 Test Item Value Reference Range Interpretation Comments POC-GLUCOSE METER 229 mg/dL 70-110 H : TESTED A T [facility] 6720 (BEAKER) (test code = [facility], 1538) 57048: Condemnation Engineer/Techni sebastian ID = [id number] for Mo woody, Conrado POCT-GLUCOSE [id number] 16:35:00 Test Item Value Reference Range Interpretation Comments POC-GLUCOSE METER 249 mg/dL 70-110 H : TESTED A T [facility] 6720 (BEAKER) (test code = [facility], [facility]8) 13765: Condemnation Engineer/Techni sebastian ID = [id number] for SE RILLO, MARISOL POCT-GLUCOSE [id number] 15:20:00 Test Item Value Reference Range Interpretation Comments POC-GLUCOSE METER 252 mg/dL 70-110 H : TESTED A T [facility] 6720 (BEAKER) (test code = [facility], [facility]8) [address]: Condemnation Engineer/Techni sebastian ID = [id number] for NG NOEL, VY POCT-GLUCOSE [id number] 14:21:00 Test Item Value Reference Range Interpretation Comments POC-GLUCOSE METER 257 mg/dL 70-110 H : TESTED A T [facility] 6720 (BEAKER) (test code = [facility], 1538) 059[address]: Condemnation Engineer/Techni sebastian ID = [id number] for SE RILLO, MARISOL POCT-GLUCOSE [id number] 13:16:00 Test Item Value Reference Range Interpretation Comments POC-GLUCOSE METER 250 mg/dL 70-110 H : TESTED A T [facility] 6720 (BEAKER) (test code = [facility], [facility]8) [address]: Condemnation Engineer/Techni sebastian ID = [id number] for Conrado Conti [id number] 12:55:00 Test Item Value Reference Range Interpretation Comments PHOSPHORUS (BEAKER) (test code = 2.0 mg/dL 2.3-4.7 L 604) Condemnation Engineer ID - [id number] 12:55:00 Test Item Value Reference Range Interpretation Comments MAGNESIUM (BEAKER) (test code = 2.3 mg/dL 1.6-2.6 627) Condemnation Engineer ID - ADMINBASIC METABOLIC [id number] 12:55:00 Test Item Value Reference Range Interpretation [...] S NOT APPLICABLE FOR DIALYSIS PATIEN TS. Condemnation Engineer ID - ADMINPOCT-GLUCOSE [id number] 12:31:00 Test Item Value Reference Range Interpretation Comments POC-GLUCOSE METER 142 mg/dL 70-110 H : TESTED A T [facility] 6720 (BEAKER) (test code = [facility], 1538) 808[address]: Condemnation Engineer/Techni sebastian ID = [id number] for Conrado Conti POCT-GLUCOSE [id number] 11:12:00 Test Item Value Reference Range Interpretation Comments POC-GLUCOSE METER 160 mg/dL 70-110 H : TESTED A T [facility] 6720 (BEAKER) (test code = [facility], 1538) 37793: Condemnation Engineer/Techni sebastian ID = [id number] for Mo woody, Conrado POCT-GLUCOSE [id number] 10:43:00 Test Item Value Reference Range Interpretation Comments POC-GLUCOSE METER 124 mg/dL 70-110 H : [facility] 67[facility] ([facility]) (test code = [facility], 153) 24194: Condemnation Engineer/Techni sebastian ID = [id number] for NG NOEL, VY POCT-GLUCOSE [id number] 10:14:00 Test Item Value Reference Range Interpretation Comments POC-GLUCOSE METER 85 mg/dL 70-110 : TESTED A T [facility] 6720 ([facility]) (test code = [facility], 153) 90758: Condemnation Engineer/Techni sebastian ID = [id number] for NGUY EN, VY POCT-GLUCOSE [id number] 10:00:00 Test Item Value Reference Range Interpretation Comments POC-GLUCOSE METER 79 mg/dL 70-110 : TESTED A T [facility] 6720 ([facility]) (test code = [facility], 153) 93098: Condemnation Engineer/Techni sebastian ID = [id number] for More no, Conrado POCT-GLUCOSE [id number] 09:59:00 Test Item Value Reference Range Interpretation Comments POC-GLUCOSE METER 73 mg/dL 70-110 : TESTED A T [facility] 6720 ([facility]) (test code = [facility], 153) 70948: Condemnation Engineer/Techni sebastian ID = [id number] for NGUY EN, VY POCT-GLUCOSE [id number] 09:58:00 Test Item Value Reference Range Interpretation Comments POC-GLUCOSE METER 113 mg/dL 70-110 H : TESTED A T [facility] 6720 ([facility]) (test code = [facility], 153) 59877: Condemnation Engineer/Techni sebastian ID = [id number] for MARISOL JANSEN POCT-GLUCOSE [id number] 09:56:00 Test Item Value Reference Range Interpretation Comments POC-GLUCOSE METER 157 mg/dL 70-110 H : Notified RN/MD: Pt. ([facility]) (test code = on IV insulin: TESTED 1537) AT [facility], 770 [address]: Condemnation Engineer/Techni sebastian ID = [id number] for SA FFORD, CHANAE POCT-GLUCOSE [id number] 09:55:00 Test Item Value Reference Range Interpretation Comments POC-GLUCOSE METER 189 mg/dL 70-110 H : Notified RN/MD: Pt. ([facility]) (test code = on IV insulin: TESTED 1538) AT [address], 770 [address]: Condemnation Engineer/Techni sebastian ID = [id number] for SA FFORD, CHANAE POCT-GLUCOSE [id number] 09:53:00 Test Item Value Reference Range Interpretation Comments POC-GLUCOSE METER 201 mg/dL 70-110 H : Notified RN/MD: Pt. ([facility]) (test code = on IV insulin: TESTED 1538) AT [address], 770 [address]: Condemnation Engineer/Techni sebastian ID = [id number] for SA FFORD, CHANAE POCT-GLUCOSE [id number] 09:53:00 Test Item Value Reference Range Interpretation Comments POC-GLUCOSE METER 202 mg/dL 70-110 H : Notified RN/MD: Pt. ([facility]) (test code = on IV insulin: TESTED 1538) AT [address], 770 [address]: Condemnation Engineer/Techni sebastian ID = [id number] for SA FFORD, CHANAE POCT-GLUCOSE [id number] 09:52:00 Test Item Value Reference Range Interpretation Comments POC-GLUCOSE METER 214 mg/dL 70-110 H : Notified RN/MD: ([facility]) (test code = TESTED AT [place] [address] 1538) [facility], [address]: Condemnation Engineer/Techni sebastian ID = [id number] for SA FFORD, CHANAE POCT-GLUCOSE [id number] 09:52:00 Test Item Value Reference Range Interpretation Comments POC-GLUCOSE METER 187 mg/dL 70-110 H : Notified RN/MD: (CAR[facility]) (test code = TESTED AT [place] [address] 1538) [facility], [address]: Condemnation Engineer/Techni sebastian ID = [id number] for SA FFORD, CHANAE POCT-GLUCOSE [id number] 09:52:00 Test Item Value Reference Range Interpretation Comments POC-GLUCOSE METER 176 mg/dL 70-110 H : Notified RN/MD: (CAROL) (test code = TESTED AT [place] [address]) [facility], [address]: Condemnation Engineer/Techni sebastian ID = [id number] for SA FFORD, CHANAE POCT-GLUCOSE [id number] 09:51:00 Test Item Value Reference Range Interpretation Comments POC-GLUCOSE METER 151 mg/dL 70-110 H : Notified RN/MD: (CAROL) (test code = TESTED AT [place] [address]) [facility], [address]: Condemnation Engineer/Techni sebastian ID = [id number] for SA FFORD, CHANAE POCT-GLUCOSE [id number] 09:50:00 Test Item Value Reference Range Interpretation Comments POC-GLUCOSE METER 138 mg/dL 70-110 H : Notified RN/MD: (CAROL) (test code = TESTED AT [place] [address]) [facility], [address]: Condemnation Engineer/Techni sebastian ID = [id number] for SA FFORD, CHANAE POCT-GLUCOSE [id number] 09:49:00 Test Item Value Reference Range Interpretation Comments POC-GLUCOSE METER 152 mg/dL 70-110 H : Notified RN/MD: (CAROL) (test code = TESTED AT [place] [address]) [facility], [address]: Condemnation Engineer/Techni sebastian ID = [id number] for SA FFORD, CHANAE POCT-GLUCOSE [id number] 09:47:00 Test Item Value Reference Range Interpretation Comments POC-GLUCOSE METER 193 mg/dL 70-110 H : Notified RN/MD: (CAROL) (test code = TESTED AT [place] [address]) [facility], [address]: Condemnation Engineer/Techni sebastian ID = [id number] for SA FFORD, CHANAE POCT-GLUCOSE [id number] 09:45:00 Test Item Value Reference Range Interpretation Comments POC-GLUCOSE METER 209 mg/dL 70-110 H : Notified RN/MD: (CAROL) (test code = TESTED AT [place] [address]) [facility], [address]: Condemnation Engineer/Techni sebastian ID = [id number] for SA FFORD, CHANAE POCT-GLUCOSE [id number] 09:45:00 Test Item Value Reference Range Interpretation Comments POC-GLUCOSE METER 261 mg/dL 70-110 H : TESTED A T [facility] 6720 ([facility]) (test code = [facility], 153) [address]: Condemnation Engineer/Techni sebastian ID = [id number] for MARISOL JANSEN POCT-GLUCOSE [id number] 09:44:00 Test Item Value Reference Range Interpretation Comments POC-GLUCOSE METER 279 mg/dL 70-110 H : Notified RN/MD: (CAROL) (test code = TESTED AT [place] [address] 1538) [facility], [address]: Condemnation Engineer/Techni sebastian ID = [id number] for LL OYD, TIKEYA POCT-GLUCOSE [id number] 09:42:00 Test Item Value Reference Range Interpretation Comments POC-GLUCOSE METER 277 mg/dL 70-110 H : Notified RN/MD: (CAR[facility]) (test code = TESTED AT [place] [address]) [facility], [address]: Condemnation Engineer/Techni sebastian ID = [id number] for LL OYD, TIKEYA POCT-GLUCOSE [id number] 09:40:00 Test Item Value Reference Range Interpretation Comments POC-GLUCOSE METER 331 mg/dL 70-110 H : TESTED A T [facility] 6720 ([facility]) (test code = [facility], 153) [address]: Condemnation Engineer/Techni sebastian ID = [id number] for Derian Contio POCT-GLUCOSE [id number] 09:39:00 Test Item Value Reference Range Interpretation Comments POC-GLUCOSE METER 342 mg/dL 70-110 H : Notified RN/MD: (CAROL) (test code = TESTED AT [place] [address] 153) [facility], [address]: Condemnation Engineer/Techni sebastian ID = [id number] for LL OYD, TIKEYA POCT-GLUCOSE [id number] 09:36:00 Test Item Value Reference Range Interpretation Comments POC-GLUCOSE METER 260 mg/dL 70-110 H : Notified RN/MD: (CAR[facility]) (test code = TESTED AT [place] [address] 153) [facility], [address]: Condemnation Engineer/Techni sebastian ID = [id number] for LL OYD, TIKEYA CBC W/PLT COUNT & AUTO [id number] 07:07:00 Test Item Value Reference Range Interpretation [...] CONCENTRATION Adequate (CELLAVISION)(BEAKER) (test code = 3438) Condemnation Engineer ID Soheila Marquez comments: Slide comments:BLOOD GAS, [id number] 03:50:00 Test Item Value Reference Range Interpretation [...] (BEAKER) (test code = 1819) 21.0 % [id number] 03:48:00 Test Item Value Reference Range Interpretation Comments PHOSPHORUS (BEAKER) (test code = 2.0 mg/dL 2.3-4.7 L 604) Condemnation Engineer ID - ALFONZO [id number] 03:48:00 Test Item Value Reference Range Interpretation Comments MAGNESIUM (BEAKER) (test code = 1.7 mg/dL 1.6-2.6 627) Condemnation Engineer ID - ALFONZO MBASIC METABOLIC [id number] 03:48:00 Test Item Value Reference Range Interpretation [...] S NOT APPLICABLE FOR DIALYSIS PATIEN TS. Condemnation Engineer ID - ALFONZO MHEPATIC FUNCTION [id number] 03:48:00 Test Item Value Reference Range Interpretation [...] (test code = 17 U/L 6-55 347) Condemnation Engineer ID - ALFONZO [id number] 00:46:00 Test Item Value Reference Range Interpretation Comments MAGNESIUM (BEAKER) 1.9 mg/dL 1.6-2.6 Specimen slightly (test code = 627) hemolyzed Condemnation Engineer ID - DBBASIC METABOLIC [id number] 00:46:00 Test Item Value Reference Range Interpretation [...] S NOT APPLICABLE FOR DIALYSIS PATIEN TS. Condemnation Engineer ID - [id number] 20:39:00 Test Item Value Reference Range Interpretation Comments MAGNESIUM (BEAKER) (test code = 1.9 mg/dL 1.6-2.6 627) Condemnation Engineer ID - NTPBASIC METABOLIC [id number] 20:39:00 Test Item Value Reference Range Interpretation [...] S NOT APPLICABLE FOR DIALYSIS PATIEN TS. Condemnation Engineer ID - NTPBLOOD GAS, [id number] 20:19:00 Test Item Value Reference Range Interpretation [...] C (test code = 1818) BASIC METABOLIC [id number] 17:09:00 Test Item Value Reference Range Interpretation [...] S NOT APPLICABLE FOR DIALYSIS PATIEN TS. Condemnation Engineer ID - [id number] 17:02:00 Test Item Value Reference Range Interpretation Comments PHOSPHORUS (BEAKER) (test code = 2.5 mg/dL 2.3-4.7 604) Condemnation Engineer ID - [id number] 17:02:00 Test Item Value Reference Range Interpretation Comments MAGNESIUM (BEAKER) (test code = 2.0 mg/dL 1.6-2.6 627) Condemnation Engineer ID - NTPBLOOD GAS, [id number] 16:46:00 Test Item Value Reference Range Interpretation [...] 37.0 C (test code = 1818) HEMOGLOBIN [id number] 14:14:00 Test Item Value Reference Range Interpretation Comments HEMOGLOBIN A1C (BEAKER) (test code = 8.3 % 4.3-6.1 H 368) Condemnation Engineer ID - [id number] 13:53:00 Test Item Value Reference Range Interpretation Comments PROCALCITONIN (BEAKER) (test code 1.18 ng/mL <0.05 H = 3036) SEPSIS RISK (ng/mL)Low: 0.05-0.50Intermediate: 0.51-2.00High: >=2.01BASIC METABOLIC [id number] 13:52:00 Test Item Value Reference Range Interpretation [...] S NOT APPLICABLE FOR DIALYSIS PATIEN TS. Condemnation Engineer ID - NTPTROPONIN [id number] 13:51:00 Test Item Value Reference Range Interpretation [...] failure, acidosis, acute neurological disease, and persistent tachyarrhythmia.Condemnation Engineer ID - NTPRAPID DRUG SCREEN, [id number] 13:50:00 Test Item Value Reference Range Interpretation [...] ng/mLOpiate 300 ng/mLMethadone 300 ng/mLAmphetamine/ 1000 ng/mL MethamphetamineThisassay provides an unconfirmed qualitative test result for the clinical management of patients in emergency situations. Chain of custody not maintained. Some uhgc-qzt-bveucfi medications, as well as adulterants, may cause inaccurate results. Clinical correlation should be applied. A more comprehensive drug screen or confirmation of a detected drug may be performed upon request.Condemnation Engineer ID - NTPCREATININE, RANDOM [id number] 13:46:00 Test Item Value Reference Range Interpretation Comments CREATININE URINE (BEAKER) (test 21.4 mg/dL code = 375) Reference Range: No NormalsOperator ID - NTPSODIUM, RANDOM [id number] 13:46:00 Test Item Value Reference Range Interpretation Comments SODIUM URINE (BEAKER) (test code = 116 meq/L 243) Reference Range: No NormalsOperator ID - NTPUREA NITROGEN, RANDOM URINE 2019-12-03 13:46:00 Test Item Value Reference Range Interpretation Comments UREA NITROGEN URINE (BEAKER) (test 268 mg/dL code = 538) Reference Range: No NormalsOperator ID - [id number] 13:44:00 Test Item Value Reference Range Interpretation Comments PHOSPHORUS (BEAKER) (test code = 3.5 mg/dL 2.3-4.7 604) Condemnation Engineer ID - [id number] 13:44:00 Test Item Value Reference Range Interpretation Comments MAGNESIUM (BEAKER) (test code = 2.1 mg/dL 1.6-2.6 627) Condemnation Engineer ID - NTPHEPATIC FUNCTION [id number] 13:44:00 Test Item Value Reference Range Interpretation [...] (test code = 18 U/L 6-55 347) Condemnation Engineer ID - [id number] 13:44:00 Test Item Value Reference Range Interpretation Comments AMYLASE (BEAKER) (test code = 349) 28 U/L 25-125 Condemnation Engineer ID - [id number] 13:44:00 Test Item Value Reference Range Interpretation Comments LIPASE (BEAKER) (test code = 749) 15 U/L 8-78 Condemnation Engineer ID - NTPLACTIC ACID, [id number] 13:31:00 Test Item Value Reference Range Interpretation Comments LACTATE BLOOD VENOUS (2) (BEAKER) 0.98 mmol/L 0.50-2.20 (test code = 2872) Condemnation Engineer ID - NTPURINALYSIS W/ REFLEX URINE [id number] 13:29:00 Test Item Value Reference Range Interpretation [...] 520) < /HPF SOURCE(BEAKER) (test code = 2795) Condemnation Engineer ID - [auto]Condemnation Engineer ID - techBLOOD GAS, [id number] 13:16:00 Test Item Value Reference Range Interpretation [...] = 1818) RAD, CHEST, 1 VIEW, NON [id number] 13:06:00Reason for exam:->shortness of breathShould this be performed at the bedside?->YesFINAL REPORT History: Shortness of breath Comparison: None Findings: The lungs are clear. No pleural effusions or pneumothorax. The heart shadow is normal in size. The thoracic aorta is mildly tortuous. Mild degenerative changes are present in the spine. Impression: No evidence ofacute cardiopulmonary disease. Signed: Aundrea Ware MDReport Verified Date/Time: 12/03/2019 13:06:53Reading Location: [address] Ortho Consult Reading Room POCT GLUCOSE (AUTOMATED)2019-09-13 19:19:00 Test Item Value Reference Range Interpretation Comments POCT GLU (test code = 5102292208) 211 mg/dL 70-110 H Lab Interpretation (test code = Abnormal 65918-5) [facility] GLUCOSE (AUTOMATED)2019-09-13 15:27:00 Test Item Value Reference Range Interpretation Comments POCT GLU (test code = 8874268238) 267 mg/dL 70-110 H Lab Interpretation (test code = Abnormal 46299-3) [facility] (NA, K, CL, CO2, GLUCOSE, BUN, CREATININE, CA)2019-09-13 11:20:00 Test Item Value Reference Range Interpretation Comments NA (test code = 131 mmol/L 135-145 L 3924146518) K (test code = 3.6 mmol/L 3.5-5 4539853123) CL (test code = 98 mmol/L 98-108 3884928829) CO2 TOTAL (test code = 27 mmol/L 23-31 7476441121) AGAP (test code = 2-16 9853322023) BUN (test code = 9 mg/dL 7-23 7237402958) GLUCOSE (test code = 152 mg/dL 70-110 H 9066040082) CREATININE (test code = 0.48 mg/dL 0.6-1.25 L 3821301600) CALCIUM (test code = 8.6 mg/dL 8.6-10.6 1910558433) eGFR Calculation mL/min/1.73m2 (Non-) (test code = 6200291623) eGFR Calculation mL/min/1.73m2 () (test code = 5574638860) AIDAN (test code = AIDAN) Association of [...] tests). Lab Interpretation Abnormal (test code = 53340-6) [facility]00 Test Item Value Reference Range Interpretation Comments POCT GLU (test code = 5904583684) 137 mg/dL 70-110 H Lab Interpretation (test code = Abnormal 97442-5) [facility] GLUCOSE (AUTOMATED)2019-09-13 06:04:00 Test Item Value Reference Range Interpretation Comments POCT GLU (test code = 7132083001) 117 mg/dL 70-110 H Lab Interpretation (test code = Abnormal 01541-5) [facility] GLUCOSE (AUTOMATED)2019-09-13 03:33:00 Test Item Value Reference Range Interpretation Comments POCT GLU (test code = 4214022561) 160 mg/dL 70-110 H Lab Interpretation (test code = Abnormal 36689-2) [facility] GLUCOSE (AUTOMATED)2019-09-12 23:34:00 Test Item Value Reference Range Interpretation Comments POCT GLU (test code = 161 mg/dL 70-110 H Notifi ed Provider [id number]) Lab Interpretation (test Abnormal code = 34001-4) [facility] GLUCOSE (AUTOMATED)2019-09-12 23:05:00 Test Item Value Reference Range Interpretation Comments POCT GLU (test code = 8611459055) 150 mg/dL 70-110 H Lab Interpretation (test code = Abnormal 77286-7) [facility] GLUCOSE (AUTOMATED)2019-09-12 17:29:00 Test Item Value Reference Range Interpretation Comments POCT GLU (test code = 1026911235) 163 mg/dL 70-110 H Lab Interpretation (test code = Abnormal 86807-7) [facility] GLUCOSE (AUTOMATED)2019-09-12 13:49:00 Test Item Value Reference Range Interpretation Comments POCT GLU (test code = 6460316497) 182 mg/dL 70-110 H Lab Interpretation (test code = Abnormal 54747-8) [facility] (Na, K, Cl, CO2, Glucose, BUN, Creatinine, Ca)2019-09-12 11:58:00 Test Item Value Reference Range Interpretation Comments NA (test code = 135 mmol/L 135-145 2024023425) K (test code = 3.8 mmol/L 3.5-5 9877185856) CL (test code = 105 mmol/L 98-108 0322974302) CO2 TOTAL (test code = 25 mmol/L 23-31 7058776268) AGAP (test code = 2-16 5836060462) BUN (test code = 5 mg/dL 7-23 L 3018028552) GLUCOSE (test code = 80 mg/dL 70-110 4075218556) CREATININE (test code = 0.53 mg/dL 0.6-1.25 L 2776532888) CALCIUM (test code = 8.6 mg/dL 8.6-10.6 9327984623) eGFR Calculation mL/min/1.73m2 (Non-) (test code = 2240936932) eGFR Calculation mL/min/1.73m2 () (test code = 3456496714) AIDAN (test code = AIDAN) Association of [...] tests). Lab Interpretation Abnormal (test code = 76283-7) [facility] 10:30:00 Test Item Value Reference Range Interpretation Comments POCT GLU (test code = 9851417893) 175 mg/dL 70-110 H Lab Interpretation (test code = Abnormal 02788-5) [facility]2019-09-12 08:58:00 Test Item Value Reference Range Interpretation Comments POCT GLU (test code = 3582835143) 98 mg/dL 70-110 Lab Interpretation (test code = Normal 33632-8) [facility] Metabolic Panel (Na, K, Cl, CO2, Glucose, BUN, Creatinine, Ca)2019-09-12 06:43:00 Test Item Value Reference Range Interpretation Comments NA (test code = 134 mmol/L 135-145 L 9471312043) K (test code = 4.0 mmol/L 3.5-5 8169241745) CL (test code = 106 mmol/L 98-108 3190301369) CO2 TOTAL (test code = 22 mmol/L 23-31 L 0735885496) AGAP (test code = 2-16 6180302321) BUN (test code = 6 mg/dL 7-23 L 3016332625) GLUCOSE (test code = 250 mg/dL 70-110 H 8375164492) CREATININE (test code = 0.55 mg/dL 0.6-1.25 L 7017924526) CALCIUM (test code = 8.4 mg/dL 8.6-10.6 L 2987814348) eGFR Calculation mL/min/1.73m2 (Non-) (test code = 9858062620) eGFR Calculation mL/min/1.73m2 () (test code = 4421988743) AIDAN (test code = AIDAN) Association of [...] tests). Lab Interpretation Abnormal (test code = 68882-2) [facility] GLUCOSE (AUTOMATED)2019-09-12 05:44:00 Test Item Value Reference Range Interpretation Comments POCT GLU (test code = 5766096374) 250 mg/dL 70-110 H Lab Interpretation (test code = Abnormal 11712-4) [facility] GLUCOSE (AUTOMATED)2019-09-12 02:48:00 Test Item Value Reference Range Interpretation Comments POCT GLU (test code = 2342708444) 213 mg/dL 70-110 H Lab Interpretation (test code = Abnormal 83789-8) [facility] GLUCOSE (AUTOMATED)2019-09-11 23:39:00 Test Item Value Reference Range Interpretation Comments POCT GLU (test code = 2302014432) 216 mg/dL 70-110 H Lab Interpretation (test code = Abnormal 96916-5) [facility] GLUCOSE (AUTOMATED)2019-09-11 21:35:00 Test Item Value Reference Range Interpretation Comments POCT GLU (test code = 1111491265) 276 mg/dL 70-110 H Lab Interpretation (test code = Abnormal 76813-8) [facility] by Shirley [id number] 18:28:00 Test Item Value Reference Range Interpretation Comments MSSA Screen by Shirley VALIENTE (test code Negative Negative = 40265-4) MRSA/MSSA Positive? (test code = No No 7674815271) Lab Interpretation (test code = Normal 49342-9) [facility] GLUCOSE (AUTOMATED)2019-09-11 18:21:00 Test Item Value Reference Range Interpretation Comments POCT GLU (test code = 8527784142) 206 mg/dL 70-110 H Lab Interpretation (test code = Abnormal 14292-4) [facility]2019-09-11 17:12:00 Test Item Value Reference Range Interpretation Comments POCT GLU (test code = 7033997817) 194 mg/dL 70-110 H Lab Interpretation (test code = Abnormal 15359-3) [facility] Metabolic Panel (Na, K, Cl, CO2, Glucose, BUN, Creatinine, Ca)2019-09-11 16:29:00 Test Item Value Reference Range Interpretation Comments NA (test code = 134 mmol/L 135-145 L 7092618269) K (test code = 4.2 mmol/L 3.5-5 1874412706) CL (test code = 111 mmol/L 98-108 H 9371969368) CO2 TOTAL (test code = 21 mmol/L 23-31 L 0750458157) AGAP (test code = 2-16 7538426321) BUN (test code = 10 mg/dL 7-23 7584429943) GLUCOSE (test code = 184 mg/dL 70-110 H 7762012483) CREATININE (test code = 0.57 mg/dL 0.6-1.25 L 7665799550) CALCIUM (test code = 7.8 mg/dL 8.6-10.6 L 5262794186) eGFR Calculation mL/min/1.73m2 (Non-) (test code = 3352295903) eGFR Calculation mL/min/1.73m2 () (test code = 1281451107) AIDAN (test code = AIDAN) Association of [...] tests). Lab Interpretation Abnormal (test code = 86283-7) [facility] GLUCOSE (AUTOMATED)2019-09-11 16:02:00 Test Item Value Reference Range Interpretation Comments POCT GLU (test code = 0558375201) 182 mg/dL 70-110 H Lab Interpretation (test code = Abnormal 51901-8) [facility] GLUCOSE (AUTOMATED)2019-09-11 15:23:00 Test Item Value Reference Range Interpretation Comments POCT GLU (test code = 9495811854) 175 mg/dL 70-110 H Lab Interpretation (test code = Abnormal 68414-4) [facility] GLUCOSE (AUTOMATED)2019-09-11 15:21:00 Test Item Value Reference Range Interpretation Comments POCT GLU (test code = 4412534008) >600 70-110 HH Lab Interpretation (test code = Abnormal 08487-0) [facility] GLUCOSE (AUTOMATED)2019-09-11 15:21:00 Test Item Value Reference Range Interpretation Comments POCT GLU (test code = 2086694991) >600 70-110 HH Lab Interpretation (test code = Abnormal 13354-3) [facility] WITH DTUOCLOQTENS7726-04-66 14:20:00 Test Item Value Reference Range Interpretation [...] RDW-SD (test code = 48.5 fL 38.5-51.6 70085-9) RDW-CV (test code = 14.4 % 12.1-15.4 788-0) PLT (test code = See_Comment [Automated 777-3) message] The system which generated this result transmit todd reference range : 150 - 328 10*3/ ?L. The reference range was not u sed to interpret th is result as normal/abnormal . MPV (test code = 8.6 fL 9.8-13 L 16419-0) NRBC/100 WBC (test See_Comment [Automat ed code = 8470572600) message] The system which generated this result transmit todd reference range : 0.0 - 10.0 /100 WBCs. The reference range was not used to interpret this result as normal/abnormal . NRBC x10^3 (test code <0.01 See_Comment [Auto mated = 5414912163) message] The system which generated this result transmit todd reference range : 10*3/?L. The reference range was not used to interpret this result as normal/abnormal . GRAN MAT (NEUT) % 89.1 % (test code = 770-8) IMM GRAN % (test code 0.40 % = 6681172501) LYMPH % (test code = 5.2 % 736-9) MONO % (test code = 4.7 % 5905-5) EOS % (test code = 0.5 % 713-8) BASO % (test code = 0.1 % 706-2) GRAN MAT x10^3(ANC) 12.06 10*3/uL 1.99-6.95 H (test code = 1653392498) IMM GRAN x10^3 (test 0.05 10*3/uL 0-0.06 code = 5730706433) LYMPH x10^3 (test code 0.70 10*3/uL 1.09-3.23 L = 731-0) MONO x10^3 (test code 0.64 10*3/uL 0.36-1.02 = 742-7) EOS x10^3 (test code = 0.07 10*3/uL 0.06-0.53 711-2) BASO x10^3 (test code <0.03 0.01-0.09 = 704-7) Lab Interpretation Abnormal (test code = 94883-5) [facility] GLUCOSE (AUTOMATED)2019-09-11 14:06:00 Test Item Value Reference Range Interpretation Comments POCT GLU (test code = 9538400390) 169 mg/dL 70-110 H Lab Interpretation (test code = Abnormal 90440-7) [facility] GLUCOSE (AUTOMATED)2019-09-11 13:16:00 Test Item Value Reference Range Interpretation Comments POCT GLU (test code = 4918663621) 144 mg/dL 70-110 H Lab Interpretation (test code = Abnormal 62739-8) [facility] (Na, K, Cl, CO2, Glucose, BUN, Creatinine, Ca)2019-09-11 12:52:00 Test Item Value Reference Range Interpretation Comments NA (test code = 137 mmol/L 135-145 2816355814) K (test code = 4.1 mmol/L 3.5-5 3437824253) CL (test code = 113 mmol/L 98-108 H 1439077070) CO2 TOTAL (test code = 19 mmol/L 23-31 L 3111898836) AGAP (test code = 2-16 3864529116) BUN (test code = 12 mg/dL 7-23 0170680194) GLUCOSE (test code = 126 mg/dL 70-110 H 0365011186) CREATININE (test code = 0.60 mg/dL 0.6-1.25 1972157197) CALCIUM (test code = 8.2 mg/dL 8.6-10.6 L 5824774595) eGFR Calculation mL/min/1.73m2 (Non-) (test code = 5536736721) eGFR Calculation mL/min/1.73m2 () (test code = 7330226686) AIDAN (test code = AIDAN) Association of [...] tests). Lab Interpretation Abnormal (test code = 51879-9) [facility] GLUCOSE (AUTOMATED)2019-09-11 12:18:00 Test Item Value Reference Range Interpretation Comments POCT GLU (test code = 0723755859) 127 mg/dL 70-110 H Lab Interpretation (test code = Abnormal 90834-8) [facility] GLUCOSE (AUTOMATED)2019-09-11 11:17:00 Test Item Value Reference Range Interpretation Comments POCT GLU (test code = 0077394815) 143 mg/dL 70-110 H Lab Interpretation (test code = Abnormal 69839-8) [facility] GLUCOSE (AUTOMATED)2019-09-11 10:15:00 Test Item Value Reference Range Interpretation Comments POCT GLU (test code = 7758942578) 165 mg/dL 70-110 H Lab Interpretation (test code = Abnormal 46134-1) [facility] GLUCOSE (AUTOMATED)2019-09-11 09:05:00 Test Item Value Reference Range Interpretation Comments POCT GLU (test code = 3307122132) 189 mg/dL 70-110 H Lab Interpretation (test code = Abnormal 77752-5) [facility] Metabolic Panel (Na, K, Cl, CO2, Glucose, BUN, Creatinine, Ca)2019-09-11 08:50:00 Test Item Value Reference Range Interpretation Comments NA (test code = 137 mmol/L 135-145 6534283512) K (test code = 4.2 mmol/L 3.5-5 8501448455) CL (test code = 114 mmol/L 98-108 H 8157342004) CO2 TOTAL (test code = 18 mmol/L 23-31 L 7203836025) AGAP (test code = 2-16 7847612080) BUN (test code = 13 mg/dL 7-23 0839834747) GLUCOSE (test code = 207 mg/dL 70-110 H 3988951608) CREATININE (test code = 0.63 mg/dL 0.6-1.25 1217967602) CALCIUM (test code = 7.9 mg/dL 8.6-10.6 L 3156238757) eGFR Calculation mL/min/1.73m2 (Non-) (test code = 9888854525) eGFR Calculation mL/min/1.73m2 () (test code = 8797134320) AIDAN (test code = AIDAN) Association of [...] tests). Lab Interpretation Abnormal (test code = 58519-0) [facility] GLUCOSE (AUTOMATED)2019-09-11 08:13:00 Test Item Value Reference Range Interpretation Comments POCT GLU (test code = 9833485167) 213 mg/dL 70-110 H Lab Interpretation (test code = Abnormal 07755-9) [facility]0052[facility]16-35 07:25:00 Test Item Value Reference Range Interpretation Comments SPUTUM CULTURE (test Specimen cellular code = 622-1) elements do not represent lower respiratory tract. Specimen rejected for routine bacterial culture. Suggest reorder and recollection. [facility] GLUCOSE (AUTOMATED)2019-09-11 07:15:00 Test Item Value Reference Range Interpretation Comments POCT GLU (test code = 4185153839) 215 mg/dL 70-110 H Lab Interpretation (test code = Abnormal 90641-6) [facility] GLUCOSE (AUTOMATED)2019-09-11 06:21:00 Test Item Value Reference Range Interpretation Comments POCT GLU (test code = 4035834814) 230 mg/dL 70-110 H Lab Interpretation (test code = Abnormal 39855-0) [facility] GLUCOSE (AUTOMATED)2019-09-11 05:13:00 Test Item Value Reference Range Interpretation Comments POCT GLU (test code = 6062117087) 201 mg/dL 70-110 H Lab Interpretation (test code = Abnormal 22626-6) [facility] (Na, K, Cl, CO2, Glucose, BUN, Creatinine, Ca)2019-09-11 04:48:00 Test Item Value Reference Range Interpretation Comments NA (test code = 136 mmol/L 135-145 2113659820) K (test code = 4.3 mmol/L 3.5-5 9499274820) CL (test code = 114 mmol/L 98-108 H 8860133560) CO2 TOTAL (test code = 17 mmol/L 23-31 L 0661065468) AGAP (test code = 2-16 4496553792) BUN (test code = 15 mg/dL 7-23 8000853439) GLUCOSE (test code = 165 mg/dL 70-110 H 3888446110) CREATININE (test code = 0.66 mg/dL 0.6-1.25 8944016151) CALCIUM (test code = 8.0 mg/dL 8.6-10.6 L 4065274990) eGFR Calculation mL/min/1.73m2 (Non-) (test code = 1924640729) eGFR Calculation mL/min/1.73m2 () (test code = 1240435787) AIDAN (test code = AIDAN) Association of [...] tests). Lab Interpretation Abnormal (test code = 26520-0) [facility] GLUCOSE (AUTOMATED)2019-09-11 04:11:00 Test Item Value Reference Range Interpretation Comments POCT GLU (test code = 6781744740) 174 mg/dL 70-110 H Lab Interpretation (test code = Abnormal 37222-6) [facility] GLUCOSE (AUTOMATED)2019-09-11 03:17:00 Test Item Value Reference Range Interpretation Comments POCT GLU (test code = 2360842558) 148 mg/dL 70-110 H Lab Interpretation (test code = Abnormal 12079-2) [facility] GLUCOSE (AUTOMATED)2019-09-11 03:02:00 Test Item Value Reference Range Interpretation Comments POCT GLU (test code = 3606488590) 168 mg/dL 70-110 H Lab Interpretation (test code = Abnormal 97260-9) [facility] GLUCOSE (AUTOMATED)2019-09-11 02:30:00 Test Item Value Reference Range Interpretation Comments POCT GLU (test code = 3252213287) 63 mg/dL 70-110 L Lab Interpretation (test code = Abnormal 60778-2) [facility] GLUCOSE (AUTOMATED)2019-09-11 02:22:00 Test Item Value Reference Range Interpretation Comments POCT GLU (test code = 4174520952) 77 mg/dL 70-110 Lab Interpretation (test code = Normal 03154-5) [facility] Metabolic Panel (Na, K, Cl, CO2, Glucose, BUN, Creatinine, Ca)2019-09-11 00:27:00 Test Item Value Reference Range Interpretation Comments NA (test code = 140 mmol/L 135-145 4517872148) K (test code = 3.8 mmol/L 3.5-5 9838427269) CL (test code = 116 mmol/L 98-108 H 1065128918) CO2 TOTAL (test code = 18 mmol/L 23-31 L 7772640097) AGAP (test code = 2-16 2030282080) BUN (test code = 17 mg/dL 7-23 2410770893) GLUCOSE (test code = 175 mg/dL 70-110 H 9364826305) CREATININE (test code = 0.69 mg/dL 0.6-1.25 2764271160) CALCIUM (test code = 8.0 mg/dL 8.6-10.6 L 8788836371) eGFR Calculation mL/min/1.73m2 (Non-) (test code = 8456684186) eGFR Calculation mL/min/1.73m2 () (test code = 7174084531) AIDAN (test code = AIDAN) Association of [...] tests). Lab Interpretation Abnormal (test code = 09440-3) [facility] (for use with Heparin Practice Guideline). Note: Draw and Send all Lab STAT.2019-09-11 00:13:00 Test Item Value Reference Range Interpretation Comments APTT Patient (test code See_Comment H [Au tomated message] = 3173-2) The system [employer] generated this result transmitted ref erence range: 26 - 36 Seconds. The reference range was not used to int erpret this result as normal/abnormal . Lab Interpretation (test Abnormal code = 95135-6) [facility] GLUCOSE (AUTOMATED)2019-09-11 00:00:00 Test Item Value Reference Range Interpretation Comments POCT GLU (test code = 9541617412) 172 mg/dL 70-110 H Lab Interpretation (test code = Abnormal 39484-2) [facility] GLUCOSE (AUTOMATED)2019-09-10 22:39:00 Test Item Value Reference Range Interpretation Comments POCT GLU (test code = 3350691625) 229 mg/dL 70-110 H Lab Interpretation (test code = Abnormal 32262-3) [facility] [id number] 21:32:00 Test Item Value Reference Range Interpretation Comments TROPONIN I (test 0.123 ng/mL See_Comment H [Automated code = 1095408786) message] The system which generated this result [...] ? Lab Interpretation Abnormal (test code = 82514-8) [facility] (Na, K, Cl, CO2, Glucose, BUN, Creatinine, Ca)2019-09-10 21:32:00 Test Item Value Reference Range Interpretation Comments NA (test code = 141 mmol/L 135-145 0698366120) K (test code = 3.6 mmol/L 3.5-5 2956312887) CL (test code = 120 mmol/L 98-108 H 1887432228) CO2 TOTAL (test code = 13 mmol/L 23-31 L 2507504432) AGAP (test code = 2-16 9080133235) BUN (test code = 16 mg/dL 7-23 4448644752) GLUCOSE (test code = 240 mg/dL 70-110 H 7471345564) CREATININE (test code = 0.63 mg/dL 0.6-1.25 6597880126) CALCIUM (test code = 6.8 mg/dL 8.6-10.6 L 2804127411) eGFR Calculation mL/min/1.73m2 (Non-) (test code = 0360604227) eGFR Calculation mL/min/1.73m2 () (test code = 2596572308) AIDAN (test code = AIDAN) Association of [...] tests). Lab Interpretation Abnormal (test code = 10593-6) [facility] + LACTIC [id number] 21:06:00 Test Item Value Reference Range Interpretation Comments PH (test code = 7.32-7.42 L 4941629303) PCO2 CHEOM (test code = See_Comment L [Auto mated 4600009223) message] The sy stem which generated this result transmitted reference range : 41 - 51 mmHg. The reference range was not used to interpret this result as normal/abnormal . PO2 CHEMO (test code = See_Comment HH [Autom ated 0099072307) message] The sy stem which generated this result transmitted reference range : 25 - 40 mmHg. The reference range was not used to interpret this result as normal/abnormal . HCO3 CHEMO (test code = See_Comment L [Auto mated 6976730146) message] The sy stem which generated this result transmitted reference range : 24 - 28 mEq/L. The reference range was not used to interpret this result as normal/abnormal . AC VBE(BEAKER) (test mEq/L code = 8853678042) THB CHEMO (test code = 11.4 g/dL 13.5-18 L 6622712958) %O2HB CHEMO (test code = 97.3 % 52-63 H 4690085018) %COHB CHEMO (test code = 0.3 % 0-1.5 3926630511) %METHB CHEMO (test code = 0.6 % 0.4-1.5 3138753819) VOL%O2 CHEMO (test code = 15.9 % 6-12 H 4731123945) NA (test code = 138 mmol/L 135-145 8737100971) K+ (test code = 4.1 mmol/L 3.5-5 4913461935) AC CA IONZ (test code = 5.00 mg/dL 4.5-5.3 8022264369) GLUCOSE (test code = 283 mg/dL 70-110 H 1240407093) LACTIC ACID (test code 0.99 mmol/L 0.5-2.2 = 8887324616) Lab Interpretation Abnormal (test code = 09763-9) [facility]2019-09-10 20:57:00 Test Item Value Reference Range Interpretation Comments POCT GLU (test code = 5910988709) 253 mg/dL 70-110 H Lab Interpretation (test code = Abnormal 50044-5) [facility] [id number] 18:17:00 Test Item Value Reference Range Interpretation Comments TROPONIN I (test 0.240 ng/mL See_Comment H [Automated code = 0941368869) message] The system which generated this result [...] ? Lab Interpretation Abnormal (test code = 62968-2) [facility] (Na, K, Cl, CO2, Glucose, BUN, Creatinine, Ca)2019-09-10 18:06:00 Test Item Value Reference Range Interpretation Comments NA (test code = 141 mmol/L 135-145 9419832209) K (test code = 4.5 mmol/L 3.5-5 9435938913) CL (test code = 117 mmol/L 98-108 H 1671341465) CO2 TOTAL (test code = 15 mmol/L 23-31 L 2870825639) AGAP (test code = 2-16 1887497583) BUN (test code = 20 mg/dL 7-23 5086126902) GLUCOSE (test code = 209 mg/dL 70-110 H 9346510368) CREATININE (test code = 0.82 mg/dL 0.6-1.25 8844149990) CALCIUM (test code = 8.0 mg/dL 8.6-10.6 L 0921388018) eGFR Calculation mL/min/1.73m2 (Non-) (test code = 6170356124) eGFR Calculation mL/min/1.73m2 () (test code = 6194475290) AIDAN (test code = AIDAN) Association of [...] tests). Lab Interpretation Abnormal (test code = 61278-1) [facility] HospitalProthrombin Time (PT) / [id number] 17:59:00 Test Item Value Reference Range Interpretation Comments PROTIME PATIENT (test See_Comment [Auto mated message] code = 5964-2) The system [employer] generated this result transmitted ref erence range: 10.1 - 1 2.6 Seconds. The re ference range was not u sed to interpret this result as normal/abnor mal. INR (test code = 6301-6) Nor mal INR <1.1; Warfarin Therap eutic range 2.0 to 3. 0 or 2.5 to 3.5, dep ending upon the indica tions. Lab Interpretation (test Normal code = 57541-0) [facility] 17:59:00 Test Item Value Reference Range Interpretation Comments APTT Patient (test code = See_Comment [ Automated message] 3173-2) The system [employer] generated this result transmitted ref erence range: 26 - 36 Seconds. The re ference range was not u sed to interpret this result as normal/abnor mal. Lab Interpretation (test Normal code = 85655-0) [facility]2019-09-10 13:59:00 Test Item Value Reference Range Interpretation Comments POCT GLU (test code = 2493687412) 248 mg/dL 70-110 H Lab Interpretation (test code = Abnormal 58958-8) [facility]G+COOX+NA+K+GLU+CA2+2019-09-10 13:51:00 Test Item Value Reference Range Interpretation Comments PH (test code = 2) 7.35-7.45 L PCO2 (test code = See_Comment L [Automate d message] 7986978198) The system [employer] generated this result transmit todd reference range : 35 - 45 mmHg. The reference range was not used to interpret this result as normal/abnormal . PO2 (test code = See_Comment H [Automated message] 2742082753) The system [employer] generated this result transmit todd reference range : 80 - 100 mmHg. The reference range was not used to interpret this result as normal/abnormal . HCO3 (test code = See_Comment L [Automate d message] 1448903621) The system [employer] generated this result transmit todd reference range : 22 - 26 mEq/L. The reference range was not used to interpret this result as normal/abnormal . BE (test code = See_Comment L [Automated message] 4396273662) The system [employer] generated this result transmit todd reference range : -3.0 - 3.0 mEq/ L. The reference r elvin was not used to interpret this result as normal/abnormal . THB (test code = 11.2 g/dL 13.5-18 L 9076208343) %O2HB (test code = 97.8 % 94-99 2348499101) %COHB ART (test code = 0.3 % 0-1.5 9560026901) %METHB ART (test code = 0.2 % 0.4-1.5 L 1695953350) VOL%O2 ART (test code = 15.8 % 15-23 1424966640) NA (test code = 139 mmol/L 135-145 9730375398) K+ (test code = 4.4 mmol/L 3.5-5 1680177686) AC CA IONZ (test code = 5.00 mg/dL 4.5-5.3 7144409679) GLUCOSE (test code = 268 mg/dL 70-110 H 8304918828) Lab Interpretation Abnormal (test code = 17907-5) [facility]SA[facility]DE[facility] [id number] 13:32:00 Test Item Value Reference Range Interpretation Comments TROPONIN I (test 0.356 ng/mL See_Comment H [Automated code = 7145947282) message] The system which generated this result [...] ? Lab Interpretation Abnormal (test code = 63175-6) [facility] (Na, K, Cl, CO2, Glucose, BUN, Creatinine, Ca)2019-09-10 13:20:00 Test Item Value Reference Range Interpretation Comments NA (test code = 141 mmol/L 135-145 0026596983) K (test code = 4.4 mmol/L 3.5-5 5130733981) CL (test code = 120 mmol/L 98-108 H 2956495237) CO2 TOTAL (test code = 12 mmol/L 23-31 L 3964847654) AGAP (test code = 2-16 6945195309) BUN (test code = 20 mg/dL 7-23 6578437286) GLUCOSE (test code = 236 mg/dL 70-110 H 8803252057) CREATININE (test code = 0.69 mg/dL 0.6-1.25 7893145995) CALCIUM (test code = 7.0 mg/dL 8.6-10.6 L 6493058117) eGFR Calculation mL/min/1.73m2 (Non-) (test code = 1281495035) eGFR Calculation mL/min/1.73m2 () (test code = 0089320377) AIDAN (test code = AIDAN) Association of [...] tests). Lab Interpretation Abnormal (test code = 61817-1) [facility] GLUCOSE (AUTOMATED)2019-09-10 12:24:00 Test Item Value Reference Range Interpretation Comments POCT GLU (test code = 4432978239) 243 mg/dL 70-110 H Lab Interpretation (test code = Abnormal 67272-7) [facility] GLUCOSE(AGE >30DAYS)2019-09-10 12:15:00 Test Item Value Reference Range Interpretation Comments POCT Glu (age>30days) (test code = 243 mg/dL 70-110 A 3342) Lab Interpretation (test code = Abnormal 69936-6) [facility] (Na, K, Cl, CO2, Glucose, BUN, Creatinine, Ca)2019-09-10 10:35:00 Test Item Value Reference Range Interpretation Comments NA (test code = 140 mmol/L 135-145 9091200217) K (test code = 4.4 mmol/L 3.5-5 5142976594) CL (test code = 119 mmol/L 98-108 H 5138286467) CO2 TOTAL (test code = 13 mmol/L 23-31 L 3856181667) AGAP (test code = 2-16 2353532743) BUN (test code = 20 mg/dL 7-23 8985483301) GLUCOSE (test code = 163 mg/dL 70-110 H 4355487539) CREATININE (test code = 0.77 mg/dL 0.6-1.25 6176572938) CALCIUM (test code = 7.7 mg/dL 8.6-10.6 L 5972457360) eGFR Calculation mL/min/1.73m2 (Non-) (test code = 6257765096) eGFR Calculation mL/min/1.73m2 () (test code = 1863173020) AIDAN (test code = AIDAN) Association of [...] tests). Lab Interpretation Abnormal (test code = 55750-1) [facility] GLUCOSE (AUTOMATED)2019-09-10 10:23:00 Test Item Value Reference Range Interpretation Comments POCT GLU (test code = 4377729930) 357 mg/dL 70-110 H Lab Interpretation (test code = Abnormal 67264-0) [facility] GLUCOSE (AUTOMATED)2019-09-10 10:23:00 Test Item Value Reference Range Interpretation Comments POCT GLU (test code = 3099277421) 186 mg/dL 70-110 H Lab Interpretation (test code = Abnormal 87672-5) [facility] GLUCOSE(AGE >30DAYS)2019-09-10 10:15:00 Test Item Value Reference Range Interpretation Comments POCT Glu (age>30days) (test code = 186 mg/dL 70-110 A 3342) Lab Interpretation (test code = Abnormal 70562-9) [facility] GLUCOSE (AUTOMATED)2019-09-10 08:47:00 Test Item Value Reference Range Interpretation Comments POCT GLU (test code = 9720385213) 142 mg/dL 70-110 H Lab Interpretation (test code = Abnormal 63893-7) [facility] GLUCOSE (AUTOMATED)2019-09-10 07:44:00 Test Item Value Reference Range Interpretation Comments POCT GLU (test code = 2745851995) 163 mg/dL 70-110 H Lab Interpretation (test code = Abnormal 89736-3) [facility] Metabolic Panel (Na, K, Cl, CO2, Glucose, BUN, Creatinine, Ca)2019-09-10 07:43:00 Test Item Value Reference Range Interpretation Comments NA (test code = 140 mmol/L 135-145 0245653346) K (test code = 5.0 mmol/L 3.5-5 Slight 9303922514) hemolysis CL (test code = 114 mmol/L 98-108 H 2005710713) CO2 TOTAL (test code 18 mmol/L 23-31 L = 1233969566) AGAP (test code = 2-16 7254435439) BUN (test code = 24 mg/dL 7-23 H Slight 1775424538) hemolysis GLUCOSE (test code = 172 mg/dL 70-110 H 8941088665) CREATININE (test code 0.89 mg/dL 0.6-1.25 = 2824495409) CALCIUM (test code = 9.2 mg/dL 8.6-10.6 1568271122) eGFR Calculation mL/min/1.73m2 (Non-) (test code = 7043558188) eGFR Calculation mL/min/1.73m2 () (test code = 6635304564) AIDAN (test code = AIDAN) Association of [...] tests). Lab Interpretation Abnormal (test code = 74625-9) [facility] GLUCOSE(AGE >30DAYS)2019-09-10 07:40:00 Test Item Value Reference Range Interpretation Comments POCT Glu (age>30days) (test code = 163 mg/dL 70-110 A 3342) Lab Interpretation (test code = Abnormal 85701-3) [facility] GLUCOSE (AUTOMATED)2019-09-10 07:01:00 Test Item Value Reference Range Interpretation Comments POCT GLU (test code = 8880040714) 179 mg/dL 70-110 H Lab Interpretation (test code = Abnormal 18166-8) [facility] GLUCOSE(AGE >30DAYS)2019-09-10 06:40:00 Test Item Value Reference Range Interpretation Comments POCT Glu (age>30days) (test code = 179 mg/dL 70-110 A 3342) Lab Interpretation (test code = Abnormal 77952-6) [facility] GLUCOSE (AUTOMATED)2019-09-10 05:37:00 Test Item Value Reference Range Interpretation Comments POCT GLU (test code = 6074798214) 223 mg/dL 70-110 H Lab Interpretation (test code = Abnormal 19837-6) [facility] GLUCOSE(AGE >30DAYS)2019-09-10 05:35:00 Test Item Value Reference Range Interpretation Comments POCT Glu (age>30days) (test code = 223 mg/dL 70-110 A 3342) Lab Interpretation (test code = Abnormal 60108-9) [facility] Metabolic Panel (Na, K, Cl, CO2, Glucose, BUN, Creatinine, Ca)2019-09-10 04:36:00 Test Item Value Reference Range Interpretation Comments NA (test code = 139 mmol/L 135-145 2903947653) K (test code = 5.0 mmol/L 3.5-5 Slight 9030048549) hemolysis CL (test code = 111 mmol/L 98-108 H 0151110727) CO2 TOTAL (test code 15 mmol/L 23-31 L = 5243218187) AGAP (test code = 2-16 7238237687) BUN (test code = 24 mg/dL 7-23 H Slight 2769442832) hemolysis GLUCOSE (test code = 282 mg/dL 70-110 H 9998352156) CREATININE (test code 0.98 mg/dL 0.6-1.25 = 9542612872) CALCIUM (test code = 9.8 mg/dL 8.6-10.6 3240944104) eGFR Calculation mL/min/1.73m2 (Non-) (test code = 0681160716) eGFR Calculation mL/min/1.73m2 () (test code = 5932965368) AIDAN (test code = AIDAN) Association of [...] tests). Lab Interpretation Abnormal (test code = 71241-9) [facility] GLUCOSE (AUTOMATED)2019-09-10 04:34:00 Test Item Value Reference Range Interpretation Comments POCT GLU (test code = 9059846270) 277 mg/dL 70-110 H Lab Interpretation (test code = Abnormal 72009-5) [facility] GLUCOSE(AGE >30DAYS)2019-09-10 04:30:00 Test Item Value Reference Range Interpretation Comments POCT Glu (age>30days) (test code = 277 mg/dL 70-110 A 3342) Lab Interpretation (test code = Abnormal 51783-0) [facility] GLUCOSE (AUTOMATED)2019-09-10 03:14:00 Test Item Value Reference Range Interpretation Comments POCT GLU (test code = 0916879562) 323 mg/dL 70-110 H Lab Interpretation (test code = Abnormal 88454-3) [facility] GLUCOSE(AGE >30DAYS)2019-09-10 03:00:00 Test Item Value Reference Range Interpretation Comments POCT Glu (age>30days) (test code = 323 mg/dL 70-110 A 3342) Lab Interpretation (test code = Abnormal 11163-1) [facility]GLU+CA2+2019-09-10 01:52:00 Test Item Value Reference Range Interpretation Comments PH (test code = 2) 7.35-7.45 LL PCO2 (test code = See_Comment L [Automate d message] 8738978886) The system [employer] generated this result transmit todd reference range : 35 - 45 mmHg. The reference range was not used to interpret this result as normal/abnormal . PO2 (test code = See_Comment H [Automated message] 6502145447) The system [employer] generated this result transmit todd reference range : 80 - 100 mmHg. The reference range was not used to interpret this result as normal/abnormal . HCO3 (test code = See_Comment L [Automate d message] 3486025889) The system [employer] generated this result transmit todd reference range : 22 - 26 mEq/L. The reference range was not used to interpret this result as normal/abnormal . BE (test code = See_Comment L [Automated message] 0704252232) The system [employer] generated this result transmit todd reference range : -3.0 - 3.0 mEq/ L. The reference r elvin was not used to interpret this result as normal/abnormal . THB (test code = 12.7 g/dL 13.5-18 L 4995018963) %O2HB (test code = 98.2 % 94-99 0882879428) %COHB ART (test code = 0.3 % 0-1.5 1557609647) %METHB ART (test code = 0.2 % 0.4-1.5 L 2350008583) VOL%O2 ART (test code = 18.1 % 15-23 8189222166) NA (test code = 137 mmol/L 135-145 6468487005) K+ (test code = 4.3 mmol/L 3.5-5 1259239960) AC CA IONZ (test code = 5.50 mg/dL 4.5-5.3 H 3247654323) GLUCOSE (test code = 394 mg/dL 70-110 H 0267622330) Lab Interpretation Abnormal (test code = 35401-4) [facility] [id number] 01:39:32 Right common femoral vein central venous [...] identified. A Casanova catheter overlies the pelvis. [facility], Radiant Results Inft User - 09/09/2019 7:40 [...] this study and agree with theabove report. [facility] (Na, K, Cl, CO2, Glucose, BUN, Creatinine, Ca)2019-09-10 01:14:00 Test Item Value Reference Range Interpretation Comments NA (test code = 139 mmol/L 135-145 8383909279) K (test code = 4.1 mmol/L 3.5-5 3344973728) CL (test code = 107 mmol/L 98-108 0837543020) CO2 TOTAL (test code = 11 mmol/L 23-31 L 7146360298) AGAP (test code = 2-16 H 4724255029) BUN (test code = 22 mg/dL 7-23 2456828754) GLUCOSE (test code = 439 mg/dL 70-110 H 5171879115) CREATININE (test code = 1.04 mg/dL 0.6-1.25 8380238403) CALCIUM (test code = 9.6 mg/dL 8.6-10.6 7495236151) eGFR Calculation mL/min/1.73m2 (Non-) (test code = 1495416348) eGFR Calculation mL/min/1.73m2 () (test code = 7999245001) AIDAN (test code = AIDAN) Association of [...] tests). Lab Interpretation Abnormal (test code = 88106-7) [facility] GLUCOSE (AUTOMATED)2019-09-10 00:33:00 Test Item Value Reference Range Interpretation Comments POCT GLU (test code = 8429197682) 417 mg/dL 70-110 H Lab Interpretation (test code = Abnormal 34493-3) [facility] [id number] 00:04:00 Test Item Value Reference Range Interpretation Comments TROPONIN I (test 0.058 ng/mL See_Comment H [Automated code = 9670296266) message] The system which generated this result [...] ? Lab Interpretation Abnormal (test code = 50313-7) [facility]ST 1 [id number] 00:00:57 Tip of the endotracheal tube projects [...] exam. Defibrillator padsproject over the left chest. [facility], Radiant Results Inft User - 09/09/2019 6:02 [...] reviewed this study and agree with theabove report.[facility] Kyuttzxopoa-Stqtavqv7082-96-15 23:40:00 Test Item Value Reference Range Interpretation Comments BOH (test code = >9.0 mmol/L 7934174139) AIDAN (test code = Normal Ranges: ? ? AIDAN) Nonfasting ? Less than 0.1 mmol/L ? ? Overnight Fast ? ? ? Less than 0.4 mmol/L ? ? Fasting (1-2 weeks) ?6-8 mmol/L Test developed and characteristics determined by [facility] Laboratory Services. [facility] HospitalLactic Acid Whole [id number] 23:36:00 Test Item Value Reference Range Interpretation Comments LACTIC ACID (test code = 2.71 mmol/L 0.5-2.2 H 0775036708) Lab Interpretation (test code = Abnormal 82401-1) [facility]2019-09-09 23:24:00 Test Item Value Reference Range Interpretation Comments POCT GLU (test code = 6741772875) 482 mg/dL 70-110 HH Lab Interpretation (test code = Abnormal 77388-0) [facility] Hospital[facility]cosylated Hemoglobin (A1C)2019-09-09 23:08:00 Test Item Value Reference Range Interpretation Comments HGB A1C (test code = 4548-4) 10.0 % 4-6 H Lab Interpretation (test code = Abnormal 99311-2) [facility]COOX+NA+K+GLU+CA2+2019-09-09 22:49:00 Test Item Value Reference Range Interpretation Comments PH (test code = 2) 7.35-7.45 LL PCO2 (test code = See_Comment L [Automate d message] 4868507485) The system [employer] generated this result transmit todd reference range : 35 - 45 mmHg. The reference range was not used to interpret this result as normal/abnormal . PO2 (test code = See_Comment H [Automated message] 7162041403) The system [employer] generated this result transmit todd reference range : 80 - 100 mmHg. The reference range was not used to interpret this result as normal/abnormal . HCO3 (test code = See_Comment L [Automate d message] 1489112472) The system [employer] generated this result transmit todd reference range : 22 - 26 mEq/L. The reference range was not used to interpret this result as normal/abnormal . BE (test code = See_Comment L [Automated message] 5183374369) The system [employer] generated this result transmit todd reference range : -3.0 - 3.0 mEq/ L. The reference r elvin was not used to interpret this result as normal/abnormal . THB (test code = 13.6 g/dL 13.5-18 3053666400) %O2HB (test code = 96.9 % 94-99 6656308866) %COHB ART (test code = 0.3 % 0-1.5 2313454647) %METHB ART (test code = 0.3 % 0.4-1.5 L 9675145296) VOL%O2 ART (test code = 18.8 % 15-23 5110915021) NA (test code = 138 mmol/L 135-145 7479587769) K+ (test code = 4.2 mmol/L 3.5-5 2012874805) AC CA IONZ (test code = 5.70 mg/dL 4.5-5.3 H 9785625587) GLUCOSE (test code = 543 mg/dL 70-110 HH 7250233174) Lab Interpretation Abnormal (test code = 64235-9) [facility] Metabolic Panel (Na, K, Cl, CO2, Glucose, BUN, Creatinine, Ca)2019-09-09 22:48:00 Test Item Value Reference Range Interpretation Comments NA (test code = 134 mmol/L 135-145 L 0594543083) K (test code = 6.4 mmol/L 3.5-5 HH 6400419395) CL (test code = 101 mmol/L 98-108 3583860091) CO2 TOTAL (test code = 9 mmol/L 23-31 L 1403500904) AGAP (test code = 2-16 H 9926969666) BUN (test code = 23 mg/dL 7-23 6773022765) GLUCOSE (test code = 653 mg/dL 70-110 HH 8713088964) CREATININE (test code = 1.14 mg/dL 0.6-1.25 6180460962) CALCIUM (test code = 8.6 mg/dL 8.6-10.6 1675807372) eGFR Calculation mL/min/1.73m2 (Non-) (test code = 4287416753) eGFR Calculation mL/min/1.73m2 () (test code = 1785254475) AIDAN (test code = AIDAN) Association of [...] tests). Lab Interpretation Abnormal (test code = 93247-1) [facility] HospitalOsmolality [id number] 22:35:00 Test Item Value Reference Range Interpretation Comments OSMOLALITY (test code = See_Comment HH [Au tomated message] 3101198734) The system [employer] generated this result transmitted ref erence range: 278 - 30 5 mOsm/kg. The reference range was not used to int erpret this result as normal/abnormal . Lab Interpretation (test Abnormal code = 85727-0) [facility] HospitalMagnesium Pltmy0801-11-79 22:34:00 Test Item Value Reference Range Interpretation Comments MAGNESIUM (test code = 8582674491) 2.1 mg/dL 1.7-2.4 Lab Interpretation (test code = Normal 10293-0) [facility] HospitalPhosphorus Slzmx0770-32-45 22:34:00 Test Item Value Reference Range Interpretation Comments PHOSPHORUS (test code = 3482905983) 6.6 mg/dL 2.5-5 H Lab Interpretation (test code = Abnormal 02769-6) [facility] CHEST 1 [id number] 22:27:15 No acute cardiopulmonary abnormality. Preliminary Report [...] acute cardiopulmonary abnormality.Preliminary Report Dictated by Resident: Estela Nesbitt, Mckinley Clay MD., have reviewed this study and agree with the abovereport.[facility] Deksrovrap7154-19-03 22:20:00 Test Item Value Reference Range Interpretation Comments APPEARANCE (test code = Clear Clear 5005571836) COLOR (test code = Straw Yellow A 6673165758) PH (test code = 4.8-8.0 2112705950) SP GRAVITY (test code = 1.003-1.030 9047778263) GLU U QUAL (test code = 500 mg/dL Normal A 2212050541) BLOOD (test code = Negative Negative 8928147799) KETONES (test code = 80 mg/dL Negative A 7356464159) PROTEIN (test code = Negative Negative 2887-8) UROBILIN (test code = Normal Normal 7894567525) BILIRUBIN (test code = Negative Negative 0066663699) NITRITE (test code = Negative Negative 3353269738) LEUK SHEN (test code = Negative Negative 2669624277) RBC/HPF (test code = See_Comment [Autom ated message] 7015950042) The system [employer] generated this result transmit todd reference range : 0 - 3 HPF. The refe rence range was not u sed to interpret th is result as normal/abnormal . WBC/HPF (test code = See_Comment [Autom ated message] 5545603270) The system [employer] generated this result transmit tdod reference range : 0 - 5 HPF. The refe rence range was not u sed to interpret th is result as normal/abnormal . BACTERIA (test code = Negative Negative 8354241523) MUCOUS (test code = Slight Negative LPF A 2214843042) SQ EPITH (test code = <1 See_Comment [Auto mated message] 2194675656) The system [employer] generated this result transmit todd reference range : <=2 HPF. The refere nce range was not u sed to interpret th is result as normal/abnormal . Lab Interpretation (test Abnormal code = 88871-5) [facility] >30DAYS)2019-09-09 22:10:00 Test Item Value Reference Range Interpretation Comments POCT Glu (age>30days) (test code = HI 70-110 3342) Lab Interpretation (test code = Normal 73631-0) [facility]. METABOLIC PANEL ([id number])2019-09-09 21:15:00 Test Item Value Reference Range Interpretation Comments NA (test code = 135 mmol/L 135-145 1715028087) K (test code = 6.5 mmol/L 3.5-5 HH Slight 9813405658) hemolysis CL (test code = 91 mmol/L 98-108 L 5282192153) CO2 TOTAL (test code 6 mmol/L 23-31 L = 6476678745) AGAP (test code = 2-16 H 8080877575) BUN (test code = 23 mg/dL 7-23 Slight 1579531579) hemolysis GLUCOSE (test code = 730 mg/dL 70-110 HH 2042684666) CREATININE (test code 1.33 mg/dL 0.6-1.25 H = 5494535227) TOTAL BILI (test code 0.8 mg/dL 0.1-1.1 = 5103826292) CALCIUM (test code = 10.8 mg/dL 8.6-10.6 H 2048880581) T PROTEIN (test code 8.7 g/dL 6.3-8.2 H = 5170698671) ALBUMIN (test code = 5.5 g/dL 3.5-5 H 7858240695) ALK PHOS (test code = 139 U/L 34-122 H Slight 2017204651) hemolysis ALTv (test code = 29 U/L 5-50 1742-6) AST(SGOT) (test code 34 U/L 13-40 Slight = 8217026454) hemolysis eGFR Calculation mL/min/1.73m2 (Non-) (test code = 5156242662) eGFR Calculation mL/min/1.73m2 () (test code = 0906101883) AIDAN (test code = AIDAN) Association of [...] tests). Lab Interpretation Abnormal (test code = 49871-5) [facility]SE(AGE >30DAYS)2019-09-09 21:14:00 Test Item Value Reference Range Interpretation Comments POCT Glu (age>30days) (test code = [place] [address] 3842) Lab Interpretation (test code = Normal 38107-1) [facility] HospitalLancic Acid Whole Irsqg8900-12-09 21:06:00 Test Item Value Reference Range Interpretation Comments LACTIC ACID (test code = 3.15 mmol/L 0.5-2.2 H 2622507284) Lab Interpretation (test code = Abnormal 07394-6) [facility]AB[facility]COOX+NA+K+GLU+CA2+2019-09-09 21:05:00 Test Item Value Reference Range Interpretation Comments PH (test code = 2) 7.35-7.45 LL PCO2 (test code = See_Comment L [Automate d message] 1839091371) The system [employer] generated this result transmit todd reference range : 35 - 45 mmHg. The reference range was not used to interpret this result as normal/abnormal . PO2 (test code = See_Comment H [Automated message] 5823994192) The system [employer] generated this result transmit todd reference range : 80 - 100 mmHg. The reference range was not used to interpret this result as normal/abnormal . HCO3 (test code = See_Comment L [Automate d message] 9266651054) The system [employer] generated this result transmit todd reference range : 22 - 26 mEq/L. The reference range was not used to interpret this result as normal/abnormal . BE (test code = See_Comment L [Automated message] 8928750237) The system [employer] generated this result transmit todd reference range : -3.0 - 3.0 mEq/ L. The reference r elvin was not used to interpret this result as normal/abnormal . THB (test code = 14.5 g/dL 13.5-18 0049605303) %O2HB (test code = 97.1 % 94-99 3997330458) %COHB ART (test code = 0.3 % 0-1.5 8864887162) %METHB ART (test code = 0.3 % 0.4-1.5 L 8815749994) VOL%O2 ART (test code = 20.0 % 15-23 9216458796) NA (test code = 129 mmol/L 135-145 L 3803619232) K+ (test code = 6.2 mmol/L 3.5-5 HH 2460180089) AC CA IONZ (test code = 5.10 mg/dL 4.5-5.3 8152842520) GLUCOSE (test code = <20 70-110 LL 9309856779) Lab Interpretation Abnormal (test code = 84643-1) [facility] WITH [id number] 20:40:00 Test Item Value Reference Range Interpretation [...] RDW-SD (test code = 44.7 fL 38.5-51.6 00463-9) RDW-CV (test code = 13.5 % 12.1-15.4 788-0) PLT (test code = See_Comment H [Automated 777-3) message] The system which generated this result transmit todd reference range : 150 - 328 10*3/ ?L. The reference range was not u sed to interpret th is result as normal/abnormal . MPV (test code = 9.4 fL 9.8-13 L 00147-3) NRBC/100 WBC (test See_Comment [Automat ed code = 0681227343) message] The system which generated this result transmit todd reference range : 0.0 - 10.0 /100 WBCs. The reference range was not used to interpret this result as normal/abnormal . NRBC x10^3 (test code <0.01 See_Comment [Auto mated = 9042053103) message] The system which generated this result transmit todd reference range : 10*3/?L. The reference range was not used to interpret this result as normal/abnormal . GRAN MAT (NEUT) % 82.3 % (test code = 770-8) IMM GRAN % (test code 1.50 % = 2788468674) LYMPH % (test code = 9.2 % 736-9) MONO % (test code = 6.3 % 5905-5) EOS % (test code = 0.2 % 713-8) BASO % (test code = 0.5 % 706-2) GRAN MAT x10^3(ANC) 21.88 10*3/uL 1.99-6.95 H (test code = 1269721863) IMM GRAN x10^3 (test 0.41 10*3/uL 0-0.06 H code = 5253562446) LYMPH x10^3 (test code 2.44 10*3/uL 1.09-3.23 = 731-0) MONO x10^3 (test code 1.67 10*3/uL 0.36-1.02 H = 742-7) EOS x10^3 (test code = 0.04 10*3/uL 0.06-0.53 L 711-2) BASO x10^3 (test code 0.12 10*3/uL 0.01-0.09 H = 704-7) COURTNEY CELLS (test code 3+ See_Comment A [Auto mated = 7790-9) message] The system which generated this result transmit todd reference range : (none). The reference range was not used to interpret this result as normal/abnormal . BANDS (test code = Increased A 6119003833) Lab Interpretation Abnormal (test code = 91823-3) [facility] [id number] 20:31:00 Test Item Value Reference Range Interpretation Comments TROPONIN I (test 0.063 ng/mL See_Comment H [Automated code = 4411798067) message] The system which generated this result [...] ? Lab Interpretation Abnormal (test code = 44704-9) [facility]-TERMINAL GPL-RIN9790-11-15 20:31:00 Test Item Value Reference Range Interpretation Comments NT-proBNP (test code 267 pg/mL See_Comment H Hemolyz ed = 4562502424) specimen [Automated message] The system which generated this result transmitted reference range : <=125. The reference range was not used to interpret this result as normal/abnormal . AIDAN (test code = AIDAN) Biotin has been reported to cause a negative bias, interpret results relative to patient's use of biotin. Lab Interpretation Abnormal (test code = 10725-8) [facility] HospitalTR[facility] [id number] 11:26:00 Test Item Value Reference Range Interpretation Comments TROPONIN I (test 0.004 ng/mL See_Comment [Automated code = 3531421889) message] The system which generated this result [...] ? Lab Interpretation Normal (test code = 01583-4) [facility]. METABOLIC PANEL (06962)2019-08-17 11:14:00 Test Item Value Reference Range Interpretation Comments NA (test code = 138 mmol/L 135-145 1818034413) K (test code = 4.6 mmol/L 3.5-5 3026556615) CL (test code = 98 mmol/L 98-108 7494977452) CO2 TOTAL (test code = 29 mmol/L 23-31 2885903374) AGAP (test code = 2-16 5208156164) BUN (test code = 12 mg/dL 7-23 6453016650) GLUCOSE (test code = 319 mg/dL 70-110 H 9835714710) CREATININE (test code = 0.71 mg/dL 0.6-1.25 3446411302) TOTAL BILI (test code = 0.5 mg/dL 0.1-1.2 3469262056) CALCIUM (test code = 10.1 mg/dL 8.6-10.6 0926273317) T PROTEIN (test code = 8.7 g/dL 6.3-8.2 H 6843248892) ALBUMIN (test code = 5.0 g/dL 3.5-5 6625040211) ALK PHOS (test code = 126 U/L 34-122 H 9038941212) ALTv (test code = 22 U/L 5-50 1742-6) AST(SGOT) (test code = 26 U/L 13-40 2334502387) eGFR Calculation mL/min/1.73m2 (Non-) (test code = 2738700107) eGFR Calculation mL/min/1.73m2 () (test code = 0520591767) AIDAN (test code = AIDAN) Association of [...] tests). Lab Interpretation Abnormal (test code = 19223-6) [facility]IP[facility]2020-01-[facility] 11:14:00 Test Item Value Reference Range Interpretation Comments LIPASE (test code = 7751773672) 96 U/L 0-220 Lab Interpretation (test code = Normal 59448-3) [facility] HospitalPROTHROMBIN TIME / [id number] 11:11:00 Test Item Value Reference Range Interpretation Comments PROTIME PATIENT (test See_Comment L [Auto mated message] code = 5964-2) The system [employer] generated this result transmitted ref erence range: 12.0 - 1 4.7 Seconds. The reference range was not used to int erpret this result as normal/abnormal . INR (test code = 6301-6) Nor mal INR <1.1; Warfarin Therap eutic range 2.0 to 3. 0 or 2.5 to 3.5, dep ending upon the indica tions. Lab Interpretation (test Abnormal code = 07172-9) [facility] WITH [id number] 11:02:00 Test Item Value Reference Range Interpretation Comments WBC (test code = See_Comment H [Automated 6690-2) message] The sy stem which generated this [...] RDW-SD (test code = 42.9 fL 38.5-51.6 57849-8) RDW-CV (test code = 13.1 % 12.1-15.4 788-0) PLT (test code = See_Comment H [Automated 777-3) message] The sy stem which generated this result transmitted reference range : 150 - 328 10*3/ ?L. The reference r elvin was not used to interpret this result as normal/abnormal . MPV (test code = 8.9 fL 9.8-13 L 15674-2) NRBC/100 WBC (test See_Comment [Automat ed code = 6709899904) message] The system which generated this result transmitted reference range : 0.0 - 10.0 /100 WBCs. The refer ence range was not u sed to interpret th is result as normal/abnormal . NRBC x10^3 (test code <0.01 See_Comment [Auto mated = [id number]) message] The s ystem which generated this result transmitted reference range : 10*3/?L. The reference range was not used to interpret this result as normal/abnormal . GRAN MAT (NEUT) % 76.7 % (test code = 770-8) IMM GRAN % (test code 0.70 % = 1959953744) LYMPH % (test code = 13.1 % 736-9) MONO % (test code = 5.7 % 5905-5) EOS % (test code = 3.2 % 713-8) BASO % (test code = 0.6 % 706-2) GRAN MAT x10^3(ANC) 9.50 10*3/uL 1.99-6.95 H (test code = 1482807858) IMM GRAN x10^3 (test 0.09 10*3/uL 0-0.06 H code = 8578630584) LYMPH x10^3 (test code 1.62 10*3/uL 1.09-3.23 = 731-0) MONO x10^3 (test code 0.71 10*3/uL 0.36-1.02 = 742-7) EOS x10^3 (test code = 0.40 10*3/uL 0.06-0.53 711-2) BASO x10^3 (test code 0.07 10*3/uL 0.01-0.09 = 704-7) Lab Interpretation Abnormal (test code = 28258-8) [facility] [id number] 10:46:55No acute cardiopulmonary disease RL: [id number] AFC: [id number] End of report ORDERING CLINICIAN: DU BESS TECHNIQUE: Single view of the chest INDICATION: Chest pain COMPARISON: None DISCUSSION: The lungs are clear. The cardiac silhouette is within normal limits. The airway is midline. The mediastinal contour is normal. [facility], Radiant Results Inft User - 08/17/2019 4:49 AM CSTORDERING CLINICIAN: DU FELIZMATECHNIQUE: Single view of the chestINDICATION: Chest painCOMPARISON: NoneDISCUSSION: The lungs are clear. The cardiac silhouette is within normal limits.The airway is midline. The mediastinal contour is normal.IMPRESSIONNo acute cardiopulmonary diseaseRL: [id number]: [id number] [facility] Test Item Value Reference Range Interpretation Comments MCH (test code = MCH) 30.8 pg 27.0-31.0 [facility]aleZhzziauRKZKIQZTQQ9028-77-84 18:59:00 Test Item Value Reference Range Interpretation Comments WBC (test code = WBC) 11.1 3.7-10.4 [facility]aleEciqjlcHKZZJWHOXJ6304-95-89 18:59:00 Test Item Value Reference Range Interpretation Comments Hct (test code = Hct) 37.5 42.0-54.0 [facility]aleAlrneoeJHJLBJQUWR3642-30-33 18:59:00 Test Item Value Reference Range Interpretation Comments MCV (test code = MCV) 89.4 80.0-94.0 [facility]aleDpifmaqVVRCFGVHPR4967-43-82 18:59:00 Test Item Value Reference Range Interpretation Comments RBC (test code = RBC) 4.20 4.70-6.10 [facility]valeBfctxovMDEYOQCVFL6147-63-41 18:59:00 Test Item Value Reference Range Interpretation Comments Hgb (test code = Hgb) 12.9 14.0-18.0 [facility]aleGnspmemWCKXPCPOXC4330-58-97 18:59:00 Test Item Value Reference Range Interpretation Comments Platelet (test code = Platelet) 318 133-450 [facility]valeVvnpwyfPAXIEYSQFH2545-12-87 18:59:00 Test Item Value Reference Range Interpretation Comments MPV (test code = MPV) 7.5 7.4-10.4 [facility]valeSqcfjgyEUFCCMIQKN5447-45-05 18:59:00 Test Item Value Reference Range Interpretation Comments MCHC (test code = MCHC) 34.4 32.0-36.0 [facility]valeOalledxBBKDOYCKKT0871-40-35 18:59:00 Test Item Value Reference Range Interpretation Comments RDW (test code = RDW) 14.3 11.5-14.5 [facility]valeHzufwkxIRKHNVRVEW2774-09-94 18:59:00 Test Item Value Reference Range Interpretation Comments Segs-Bands # (test code = Segs-Bands #) 7.8 1.5-8.1 [facility]aleJpnmmwpLRQTNCCODN8050-62-20 18:59:00 Test Item Value Reference Range Interpretation Comments Lymphocytes # (test code = Lymphocytes 2.1 1.0-5.5 #) [facility]valeZetsvysJZIZVFAWFT6857-75-84 18:59:00 Test Item Value Reference Range Interpretation Comments Basophils (test code = 0.8 See_Comment [Aut omated message] The Basophils) system which ge nerated this result tra nsmitted reference range : <=1.0. The reference r elvin was not used to int erpret this result as normal/abnormal . [facility]aleCbgrnbaUWXBBDCQVF5720-92-36 18:59:00 Test Item Value Reference Range Interpretation Comments Eosinophils (test code = 0.5 See_Comment [A utomated message] The Eosinophils) system which ge nerated this result tra nsmitted reference range : <=4.0. The reference r elvin was not used to int erpret this result as normal/abnormal . [facility]aleOpvgtrsQLMTHELUXF5307-80-32 18:59:00 Test Item Value Reference Range Interpretation Comments Lymphocytes (test code = Lymphocytes) 19.0 20.0-40.0 [facility]aleChithrqIWNWXHOEMV8454-56-19 18:59:00 Test Item Value Reference Range Interpretation Comments Monocytes (test code = Monocytes) 9.5 2.0-12.0 [facility]aleJkgpadaPTAKABOZQK0561-11-25 18:59:00 Test Item Value Reference Range Interpretation Comments Segs (test code = Segs) 70.2 45.0-75.0 [facility]valeNbpcltoVARDCDQJWE7581-64-46 18:59:00 Test Item Value Reference Range Interpretation Comments Eosinophils # (test code 0.1 See_Comment [A utomated message] The = Eosinophils #) system [facility] h generated this result tra nsmitted reference range : <=0.5. The reference r elvin was not used to int erpret this result as normal/abnormal . [facility]aleWftarxqXBIXQLVJUV9243-69-39 18:59:00 Test Item Value Reference Range Interpretation Comments Basophils # (test code 0.1 See_Comment [Aut omated message] The = Basophils #) system which generated this result tra nsmitted reference range : <=0.2. The reference r elvin was not used to int erpret this result as normal/abnormal . [facility]aleIxvzcjjQHKHMVXAEK7738-10-98 18:59:00 Test Item Value Reference Range Interpretation Comments Monocytes # (test code 1.1 See_Comment [Aut omated message] The = Monocytes #) system which generated this result tra nsmitted reference range : <=0.8. The reference r elvin was not used to int erpret this result as normal/abnormal . [facility] SurgerySabxyubEILOZFCVKEYI6683-15-67 00:09:00 Test Item Value Reference Range Interpretation Comments Potassium Lvl (test code = Potassium 3.6 3.5-5.1 Lvl) [facility] SurgeryIdzrjisOXBJUXRTEWQI7938-96-90 00:09:00 Test Item Value Reference Range Interpretation Comments Chloride Lvl (test code = Chloride Lvl) 111 95-109 [facility] SurgeryVbynjtxQMRSYIMXLNWD7124-83-36 00:09:00 Test Item Value Reference Range Interpretation Comments BUN (test code = BUN) 9 7-22 [facility] SurgeryPzybbvhUWIHQICMWOPF9487-36-13 00:09:00 Test Item Value Reference Range Interpretation Comments Creatinine Lvl (test code = Creatinine 0.94 0.50-1.40 Lvl) [facility] SurgeryPhwdjxxMJINVELJVAJD6388-07-16 00:09:00 Test Item Value Reference Range Interpretation Comments Sodium Lvl (test code = Sodium Lvl) 141 135-145 [facility] SurgeryYcekrksXKTQPCTZTJJE1097-68-05 00:09:00 Test Item Value Reference Range Interpretation Comments Glucose Lvl (test code = Glucose Lvl) 106 70-99 [facility] SurgeryGoxutxgFHSTYRSOSORV3140-74-70 00:09:00 Test Item Value Reference Range Interpretation Comments Calcium Lvl (test code = Calcium Lvl) 7.9 8.5-10.5 [facility] SurgeryTcwamodLMOYLWUYQYLC5904-87-47 00:09:00 Test Item Value Reference Range Interpretation Comments AGAP (test code = AGAP) 13.6 10.0-20.0 [facility] SurgeryBfaxiczQLZHHAESZNNM5358-01-91 00:09:00 Test Item Value Reference Range Interpretation Comments CO2 (test code = CO2) 20 24-32 [facility] SurgeryXrxdvmsMIVVBTUVALGM6921-20-60 00:09:00 Test Item Value Reference Range Interpretation Comments eGFR (test code = eGFR) 93 [facility] XOCBE1772-96-22 14:35:00 Test Item Value Reference Range Interpretation Comments Magnesium Lvl (test code = Magnesium 1.9 1.8-2.4 Lvl) [facility] [id number] 14:35:00 Test Item Value Reference Range Interpretation Comments Glucose Lvl (test code = Glucose Lvl) 124 70-99 [facility]2018-06-15 14:35:00 Test Item Value Reference Range Interpretation Comments BUN (test code = BUN) 17 7-22 [facility]2018-06-15 14:35:00 Test Item Value Reference Range Interpretation Comments Sodium Lvl (test code = Sodium Lvl) 143 135-145 [facility]2018-06-15 14:35:00 Test Item Value Reference Range Interpretation Comments Potassium Lvl (test code = Potassium 4.1 3.5-5.1 Lvl) [facility]2018-06-15 14:35:00 Test Item Value Reference Range Interpretation Comments Creatinine Lvl (test code = Creatinine 0.98 0.50-1.40 Lvl) [facility]2018-06-15 14:35:00 Test Item Value Reference Range Interpretation Comments Chloride Lvl (test code = Chloride Lvl) 116 95-109 [facility]2018-06-15 14:35:00 Test Item Value Reference Range Interpretation Comments eGFR (test code = eGFR) 88 [facility]2018-06-15 14:35:00 Test Item Value Reference Range Interpretation Comments CO2 (test code = CO2) 18 24-32 [facility]2018-06-15 14:35:00 Test Item Value Reference Range Interpretation Comments Calcium Lvl (test code = Calcium Lvl) 7.8 8.5-10.5 [facility]2018-06-15 14:35:00 Test Item Value Reference Range Interpretation Comments AGAP (test code = AGAP) 13.1 10.0-20.0 [facility]2018-06-15 14:35:00 Test Item Value Reference Range Interpretation Comments Magnesium Lvl (test code = Magnesium 2.0 1.8-2.4 Lvl) [facility]2018-06-15 14:35:00 Test Item Value Reference Range Interpretation Comments Ketone Quantitative (test code = Ketone 0.53 Quantitative) [facility]2018-06-15 14:35:00 Test Item Value Reference Range Interpretation Comments Phosphorus (test code = Phosphorus) 2.1 2.5-4.5 [facility]2018-06-15 08:58:20 Test Item Value Reference Range Interpretation Comments Magnesium Lvl (test code = Magnesium 2.1 1.8-2.4 Lvl) [facility]2018-06-15 08:58:20 Test Item Value Reference Range Interpretation Comments Calcium Lvl (test code = Calcium Lvl) 8.3 8.5-10.5 [facility]2018-06-15 08:58:20 Test Item Value Reference Range Interpretation Comments AGAP (test code = AGAP) 13.7 10.0-20.0 [facility]2018-06-15 08:58:20 Test Item Value Reference Range Interpretation Comments Potassium Lvl (test code = Potassium 3.7 3.5-5.1 Lvl) [facility]2018-06-15 08:58:20 Test Item Value Reference Range Interpretation Comments CO2 (test code = CO2) 19 24-32 [facility]2018-06-15 08:58:20 Test Item Value Reference Range Interpretation Comments Chloride Lvl (test code = Chloride Lvl) 111 95-109 [facility]2018-06-15 08:58:20 Test Item Value Reference Range Interpretation Comments Glucose Lvl (test code = Glucose Lvl) 143 70-99 [facility]2018-06-15 08:58:20 Test Item Value Reference Range Interpretation Comments Creatinine Lvl (test code = Creatinine 1.23 0.50-1.40 Lvl) [facility]2018-06-15 08:58:20 Test Item Value Reference Range Interpretation Comments BUN (test code = BUN) 22 7-22 [facility]2018-06-15 08:58:20 Test Item Value Reference Range Interpretation Comments Sodium Lvl (test code = Sodium Lvl) 140 135-145 [facility]2018-06-15 08:58:20 Test Item Value Reference Range Interpretation Comments eGFR (test code = eGFR) 67 [facility] [id number] 08:58:20 Test Item Value Reference Range Interpretation Comments Hgb A1C (test code = Hgb A1C) 10.2 [facility] [id number] 07:11:00 Test Item Value Reference Range Interpretation Comments U Phencyc Scr (test Negative *NA*(01/07/18 code = U Phencyc Scr) 2:11 AM) [facility] [id number] 07:11:00 Test Item Value Reference Range Interpretation Comments UDS Note (test code = See Note (01/07/18 2:11 UDS Note) AM) [facility] [id number] 07:11:00 Test Item Value Reference Range Interpretation Comments U Cannab Scr (test Negative *NA*(01/07/18 code = U Cannab Scr) 2:11 AM) [facility] [id number] 07:11:00 Test Item Value Reference Range Interpretation Comments U Cocaine Scr (test Positive *ABN*(01/07/18 code = U Cocaine Scr) 2:11 AM) [facility] [id number] 07:11:00 Test Item Value Reference Range Interpretation Comments U Benzodia Scr (test Negative *NA*(01/07/18 code = U Benzodia Scr) 2:11 AM) [facility] [id number] 07:11:00 Test Item Value Reference Range Interpretation Comments U Latisha Scr (test code Negative *NA*(01/07/18 = U Latisha Scr) 2:11 AM) [facility] [id number] 07:11:00 Test Item Value Reference Range Interpretation Comments U Opiate Scr (test Negative *NA*(01/07/18 code = U Opiate Scr) 2:11 AM) [facility] [id number] 07:11:00 Test Item Value Reference Range Interpretation Comments U Amph Scr (test code Negative *NA*(01/07/18 = U Amph Scr) 2:11 AM) [facility] [id number] 07:11:00 Test Item Value Reference Range Interpretation Comments UA Glucose (test code = UA Glucose) no gt [facility] [id number] 07:11:00 Test Item Value Reference Range Interpretation Comments UA Urobilinogen (test code = UA <=1.0 mg/dL 0.1-1.0 Urobilinogen) [facility] [id number] 07:11:00 Test Item Value Reference Range Interpretation Comments UA Sq Epi (test code = UA Sq Occasional /LPF Epi) [facility] [id number] 07:11:00 Test Item Value Reference Range Interpretation Comments UA Leuk Est (test Negative (01/07/18 2:11 code = UA Leuk Est) AM) [facility] AND [id number] 07:11:00 Test Item Value Reference Range Interpretation Comments UA Nitrite (test code Negative (01/07/18 2:11 = UA Nitrite) AM) [facility] AND [id number] 07:11:00 Test Item Value Reference Range Interpretation Comments UA Blood (test code = Negative (01/07/18 2:11 UA Blood) AM) [facility] AND [id number] 07:11:00 Test Item Value Reference Range Interpretation Comments UA RBC (test code = 2 See_Comment [Automa todd message] The UA RBC) system which ge nerated this result transmit todd reference range : <=2. The reference range was not used to interpr et this result as ning l/abnormal. [facility] AND [id number] 07:11:00 Test Item Value Reference Range Interpretation Comments UA Mucus (test code = UA Mucus) Few /LPF [facility] AND [id number] 07:11:00 Test Item Value Reference Range Interpretation Comments UA WBC (test code = 2 See_Comment [Automa todd message] The UA WBC) system which ge nerated this result transmit todd reference range : <=5. The reference range was not used to interpr et this result as ning l/abnormal. [facility] AND [id number] 07:11:00 Test Item Value Reference Range Interpretation Comments UA Hyal Cast (test 4 See_Comment [Automat ed message] The code = UA Hyal Cast) system which generated this result transmit todd reference range : <=2. The reference range was not used to interpr et this result as ning l/abnormal. [facility] AND [id number] 07:11:00 Test Item Value Reference Range Interpretation Comments UA Color (test code = Yellow *NA*(01/07/18 UA Color) 2:11 AM) [facility] AND [id number] 07:11:00 Test Item Value Reference Range Interpretation Comments UA Spec Grav (test code = UA Spec 1.017 1 Grav) [facility] AND [id number] 07:11:00 Test Item Value Reference Range Interpretation Comments UA Turbidity (test code = Clear (01/07/18 2:11 UA Turbidity) AM) [facility] AND [id number] 07:11:00 Test Item Value Reference Range Interpretation Comments UA pH (test code = UA pH) 5.0 1 5.0-8.0 [facility] AND [id number] 07:11:00 Test Item Value Reference Range Interpretation Comments UA Ketones (test code = UA Ketones) 80 mg/dL [facility] AND [id number] 07:11:00 Test Item Value Reference Range Interpretation Comments UA Protein (test code = UA Negative mg/dL Protein) [facility] AND [id number] 07:11:00 Test Item Value Reference Range Interpretation Comments UA Bili (test code = Negative *NA*(01/07/18 UA Bili) 2:11 AM) [facility]2018-06-15 05:21:00 Test Item Value Reference Range Interpretation Comments Procalcitonin Lvl (test 0.13 1 See_Comment [Au tomated message] code = Procalcitonin Lvl) Th e system which generated this result transmitted ref erence range: <=0.10. The reference range was not used to int erpret this result as normal/abnormal . [facility] [id number] 04:15:00 Test Item Value Reference Range Interpretation Comments Ketone Quantitative (test code = Ketone 4.44 Quantitative) [facility]2018-06-15 04:15:00 Test Item Value Reference Range Interpretation Comments eGFR (test code = eGFR) 42 [facility]2018-06-15 04:15:00 Test Item Value Reference Range Interpretation Comments Globulin (test code = Globulin) 4.2 2.7-4.2 [facility]2018-06-15 04:15:00 Test Item Value Reference Range Interpretation Comments A/G Ratio (test code = A/G Ratio) 1.1 1 0.7-1.6 [facility]2018-06-15 04:15:00 Test Item Value Reference Range Interpretation Comments B/C Ratio (test code = B/C Ratio) 15 1 6-25 [facility]2018-06-15 04:15:00 Test Item Value Reference Range Interpretation Comments AGAP (test code = AGAP) 24.5 10.0-20.0 [facility]2018-06-15 04:15:00 Test Item Value Reference Range Interpretation Comments AST (test code = AST) 30 See_Comment [Auto mated message] The system which ge nerated this result transmit todd reference range : <=37. The reference range was not used to interpr et this result as ning l/abnormal. [facility]2018-06-15 04:15:00 Test Item Value Reference Range Interpretation Comments Alk Phos (test code = Alk Phos) 103 39-136 [facility]2018-06-15 04:15:00 Test Item Value Reference Range Interpretation Comments Bili Total (test code = Bili Total) 0.6 0.2-1.3 [facility]2018-06-15 04:15:00 Test Item Value Reference Range Interpretation Comments Glucose Lvl (test code = Glucose Lvl) 332 70-99 [facility]2018-06-15 04:15:00 Test Item Value Reference Range Interpretation Comments Albumin Lvl (test code = Albumin Lvl) 4.5 3.5-5.0 [facility]2018-06-15 04:15:00 Test Item Value Reference Range Interpretation Comments Total Protein (test code = Total 8.7 6.4-8.4 Protein) [facility]2018-06-15 04:15:00 Test Item Value Reference Range Interpretation Comments Calcium Lvl (test code = Calcium Lvl) 9.5 8.5-10.5 [facility]2018-06-15 04:15:00 Test Item Value Reference Range Interpretation Comments CO2 (test code = CO2) 14 24-32 [facility]2018-06-15 04:15:00 Test Item Value Reference Range Interpretation Comments Chloride Lvl (test code = Chloride Lvl) 103 95-109 [facility]2018-06-15 04:15:00 Test Item Value Reference Range Interpretation Comments Potassium Lvl (test code = Potassium 4.5 3.5-5.1 Lvl) [facility]2018-06-15 04:15:00 Test Item Value Reference Range Interpretation Comments BUN (test code = BUN) 27 7-22 [facility]2018-06-15 04:15:00 Test Item Value Reference Range Interpretation Comments Sodium Lvl (test code = Sodium Lvl) 137 135-145 [facility]2018-06-15 04:15:00 Test Item Value Reference Range Interpretation Comments Creatinine Lvl (test code = Creatinine 1.80 0.50-1.40 Lvl) [facility]2018-06-15 04:15:00 Test Item Value Reference Range Interpretation Comments ALT (test code = ALT) 44 See_Comment [Auto mated message] The system which ge nerated this result transmit todd reference range : <=65. The reference range was not used to interpr et this result as ning l/abnormal. [facility]2018-06-15 04:15:00 Test Item Value Reference Range Interpretation Comments Lipase Lvl (test code = Lipase Lvl) 358 73-393 [facility]aleZcfirzgWBVMZFDEDW8046-82-61 04:15:00 Test Item Value Reference Range Interpretation Comments PTT (test code = PTT) 29.2 s 22.9-35.8 [facility]aleCqlfdloZBZIFWWVAC8903-60-33 04:15:00 Test Item Value Reference Range Interpretation Comments PT (test code = PT) 13.1 s 12.0-14.7 [facility]valeTauojyjVUEJUHICIQ9524-38-90 04:15:00 Test Item Value Reference Range Interpretation Comments INR (test code = INR) 0.99 1 0.85-1.17 [facility]aleLrgsrduUUUUGUUTCD3787-27-04 04:15:00 Test Item Value Reference Range Interpretation Comments MCHC (test code = MCHC) 34.3 32.0-36.0 [facility]aleBwkohefQMDMIUVFPE4082-11-39 04:15:00 Test Item Value Reference Range Interpretation Comments MCH (test code = MCH) 30.6 pg 27.0-31.0 [facility]aleQgupoadJUNHDOCBSQ5822-98-92 04:15:00 Test Item Value Reference Range Interpretation Comments MPV (test code = MPV) 7.2 7.4-10.4 [facility]aleQvvutnbAXDFQWBGWS6329-77-59 04:15:00 Test Item Value Reference Range Interpretation Comments RDW (test code = RDW) 14.9 11.5-14.5 [facility]valeAjhfuahCDWTFTEPGY9176-86-20 04:15:00 Test Item Value Reference Range Interpretation Comments Platelet (test code = Platelet) 492 133-450 [facility]valeDfpkiawYMWSLBTWMD7344-28-60 04:15:00 Test Item Value Reference Range Interpretation Comments MCV (test code = MCV) 89.2 80.0-94.0 [facility]aleVzndijcMBJTWHOJVG3002-45-84 04:15:00 Test Item Value Reference Range Interpretation Comments Hct (test code = Hct) 43.9 42.0-54.0 [facility]aleJtitgpvCBMJOTGKQI9013-40-13 04:15:00 Test Item Value Reference Range Interpretation Comments Hgb (test code = Hgb) 15.1 14.0-18.0 [facility] [id number] 04:15:00 Test Item Value Reference Range Interpretation Comments RBC (test code = RBC) 4.92 4.70-6.10 [id number] 04:15:00 Test Item Value Reference Range Interpretation Comments WBC (test code = WBC) 26.5 3.7-10.4 [id number] 04:15:00 Test Item Value Reference Range Interpretation Comments Lymphocytes # (test code = Lymphocytes 2.2 1.0-5.5 #) [id number] 04:15:00 Test Item Value Reference Range Interpretation Comments Segs-Bands # (test code = Segs-Bands #) 22.4 1.5-8.1 [id number] 04:15:00 Test Item Value Reference Range Interpretation Comments Basophils # (test code 0.2 See_Comment [Aut omated message] The = Basophils #) system which generated this result tra nsmitted reference range : <=0.2. The reference r elvin was not used to int erpret this result as normal/abnormal . [id number] 04:15:00 Test Item Value Reference Range Interpretation Comments Monocytes # (test code 1.7 See_Comment [Aut omated message] The = Monocytes #) system which generated this result tra nsmitted reference range : <=0.8. The reference r elvin was not used to int erpret this result as normal/abnormal . [id number] 04:15:00 Test Item Value Reference Range Interpretation Comments Plt Morph (test code = Normal (01/06/18 11:15 Plt Morph) PM) [id number] 04:15:00 Test Item Value Reference Range Interpretation Comments Segs (test code = Segs) 84.6 45.0-75.0 [id number] 04:15:00 Test Item Value Reference Range Interpretation Comments Lymphocytes (test code = Lymphocytes) 8.3 20.0-40.0 [facility]DtoncvkJKHKAIWYHB7377-19-96 04:15:00 Test Item Value Reference Range Interpretation Comments Monocytes (test code = Monocytes) 6.5 2.0-12.0 [facility]QyyzllsVIWGUBEUWG2776-73-27 04:15:00 Test Item Value Reference Range Interpretation Comments Basophils (test code = 0.6 See_Comment [Aut omated message] The Basophils) system which ge nerated this result tra nsmitted reference range : <=1.0. The reference r elvin was not used to int erpret this result as normal/abnormal . [facility] H[id number] 04:15:00 Test Item Value Reference Range Interpretation Comments RBC Morph (test code = Normal (01/06/18 11:15 RBC Morph) PM) [facility] [id number] 04:15:00 Test Item Value Reference Range Interpretation Comments Ethanol Lvl (test code = Ethanol Lvl) no gt [facility] CenterTcenvgxSEZAQVFWGH7830-01-66 04:15:00 Test Item Value Reference Range Interpretation Comments Etoh (%) (test code = Etoh (%)) no gt [facility] CenterannCARDIAC [id number] 04:15:00 Test Item Value Reference Range Interpretation Comments Troponin-I (test code no gt See_Comment [Auto mated message] The = Troponin-I) system which g enerated this result transmit todd reference range : <=0.40. The reference r elvin was not used to interpr et this result as ning l/abnormal. [facility]annCARDIAC [id number] 04:15:00 Test Item Value Reference Range Interpretation Comments Total CK (test code = Total CK) 54 12-191 [facility]annC[facility] [id number] 04:15:00 Test Item Value Reference Range Interpretation Comments CK MB (test code = CK MB) 0.6 0.5-3.6 [facility]annCARDIAC [id number] 04:15:00 Test Item Value Reference Range Interpretation Comments CK MB Index (test 1.1 1 See_Comment [Automate d message] The code = CK MB Index) system w [facility] generated this result transmit todd reference range : <=2.5. The reference range was not used to interpr et this result as ning l/abnormal. [facility] CenterNetrada [id number] 04:15:00 Test Item Value Reference Range Interpretation Comments Lactic Acid Lvl (test code = Lactic 5.2 0.5-2.2 Acid Lvl) [facility] [id number] 04:15:00 Test Item Value Reference Range Interpretation Comments Magnesium Lvl (test code = Magnesium 2.4 1.8-2.4 Lvl) [facility] [id number] 04:15:00 Test Item Value Reference Range Interpretation Comments Phosphorus (test code = Phosphorus) 4.0 2.5-4.5 [facility]
[2022-11-24 20:55] LABS: Absolute Lymphocytes (CBC) 1.4 K/uL (0.7-4.9); Hematocrit 41.4 % (39.6-49.0); Lymphocytes % 13.4 % (15.3-44.8); MCV 90.4 fL (80-100); MPV 6.9 fL (7.6-11.3); RBC Red Blood Cell Count 4.58 M/uL (4.33-5.43)
[2022-11-24 21:17] LABS: Albumin 3.5 g/dL (3.4-5.0); Bilirubin Total 0.4 mg/dL (0.2-1.0); Potassium 3.6 mEq/L (3.5-5.1); Troponin High Sensitivity 6.9 pg/mL (<58.9)
--- NOTE | 2022-11-24 21:24 | RAD REPORT ---
EXAM DESCRIPTION: RAD - Chest Single View - 11/24/2022 9:16 pm CLINICAL HISTORY: syncope COMPARISON: Chest Single View dated 03/02/2022; Chest Single View dated 12/03/2019; Chest Single View d ated 10/30/2015; Chest Single View dated 10/28/2015 FINDINGS: Lines: None. Lungs: No evidence of edema or pneumonia. Emphysema. Pleural: No significant pleural effusions or pneumothorax. Cardiac: The heart size is within normal limits. Mediastinum: Within normal limits. Bones: No acute fractures. Other: None IMPRESSION: No acute cardiopulmonary disease.
--- NOTE | 2022-11-24 23:43 | ER ---
Nurse's Notes [facility] Name: Nick Elizondo II Age: 57 yrs Sex: Male : 1965 Arrival Date: 11/24/2022 Time: 19:42 Bed 5 Private MD: Diagnosis: Drug-induced hypoglycemia without coma Presentation: 11/24 19:53 Chief complaint: EMS states: syncopal episode at [place]. by standards state that he lg3 collapsed and began to shake. on EMS arrival, PT awake and alert with intermittent confusion. blood glucose reading of "low". 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 144 blood glucose on arrival. denies LOC. Coronavirus screen: Client denies travel out of the [place] in the last 14 days. At this time, the client does not indicate any symptoms associated with coronavirus-19. Ebola Screen: No symptoms or risks identified at this time. Initial Sepsis Screen: Does the patient meet any 2 criteria? No. Patient's initial sepsis screen is negative. Does the patient have a suspected source of infection? No. Patient's initial sepsis screen is negative. Risk Assessment: Do you want to hurt yourself or someone else? Patient reports no desire to harm self or others. Onset of symptoms was November 24, 2022. 19:53 Method Of Arrival: EMS: [facility] 3 19:53 Acuity: EMMA 3 lg3 Triage Assessment: 19:57 General: Appears in no apparent distress. comfortable, Behavior is calm, cooperative. lg3 Pain: Denies pain. EENT: No deficits noted. No signs and/or symptoms were reported regarding the EENT system. Neuro: Gómez Agitation-Sedation Scale (RASS): 0 - Alert and Calm Level of Consciousness is awake, alert, obeys commands, intermittent confusion present. Oriented to person, place, time, situation. Cardiovascular: No deficits noted. Denies chest pain, shortness of breath, Capillary refill < 3 seconds Clubbing of nail beds is absent JVD is absent Patient's skin is warm and dry. Respiratory: No deficits noted. Airway is patent Respiratory effort is even, unlabored, Respiratory pattern is regular, symmetrical. GI: No deficits noted. No signs and/or symptoms were reported involving the gastrointestinal system. Abdomen is flat, non-distended. : No deficits noted. No signs and/or symptoms were reported regarding the genitourinary system. Derm: Skin is intact, is thin, Skin is dry, Skin is blue Skin temperature is warm. Musculoskeletal: No deficits noted. No signs and/or symptoms reported regarding the musculoskeletal system. Circulation, motion, and sensation intact. Range of motion: intact in all extremities. Historical: - Allergies: 19:57 No Known Allergies; lg3 - Home Meds: 19:57 Novolin N Sub-Q [Active]; Novolog Sub-Q [Active]; lg3 - PMHx: 19:57 Diabetes - IDDM; lg3 - PSHx: 19:57 cardiac stents; lg3 - Immunization history:: Adult Immunizations unknown, Client reports having NOT received the Covid vaccine. - Social history:: Smoking status: Patient reports the use of cigarette tobacco products, smokes one pack cigarettes per day. Patient uses alcohol, weekly. Patient/guardian denies using street drugs. - Family history:: not pertinent. Screenin:00 [facility] ED Fall Risk Assessment (Adult) History of falling in the last 3 months, lg3 including since admission Yes- physiologic fall (2 pts) Confusion or Disorientation Yes (5 pts) Intoxicated or Sedated No (0 pts) Impaired Gait No (0 pts) Mobility Assist Device Used No (0 pt) Altered Elimination No (0 pt) Score/Fall Risk Level 3 or more points = High Risk Oriented to surroundings, Maintained a safe environment, Educated pt \\T\\ family on fall prevention, incl call for assistance when getting out of bed, Provided non-skid footwear. Abuse screen: Denies threats or abuse. Denies injuries from another. Nutritional screening: No deficits noted. Tuberculosis screening: No symptoms or risk factors identified. Assessment: 20:00 General: see triage assessment . lg3 21:22 Reassessment: Patient appears in no apparent distress at this time. No changes from lg3 previously documented assessment. Patient and/or family updated on plan of care and expected duration. Pain level reassessed. Patient is alert, oriented x 3, equal unlabored respirations, skin warm/dry/pink. Patient states feeling better. Patient states symptoms have improved. 23:26 Reassessment: Patient appears in no apparent distress at this time. No changes from lg3 previously documented assessment. Patient and/or family updated on plan of care and expected duration. Pain level reassessed. Patient is alert, oriented x 3, equal unlabored respirations, skin warm/dry/pink. Patient denies pain at this time. Patient states feeling better. Patient states symptoms have improved. Vital Signs: 19:53 BP 132 / 74; Pulse 86; Resp 15 S; Temp 97.7(O); Pulse Ox 100% on R/A; Weight 49.9 kg lg3 (R); Height 5 ft. 6 in. (R); Pain 0/10; 21:22 BP 141 / 85; Pulse 92; Resp 16 S; Pulse Ox 99% on R/A; lg3 23:26 BP 123 / 71; Pulse 64; Resp 14 S; Pulse Ox 100% on R/A; lg3 11/25 00:29 BP 118 / 63; Pulse 88; Resp 16 S; Pulse Ox 99% on R/A; lg3 11/24 19:53 Body Mass Index 17.75 (49.90 kg, 167.64 cm) lg3 11/24 19:53 Pain Scale: Adult lg3 ED Course: 11/24 19:46 Patient arrived in ED. lg3 19:53 Radha Renteria, ELSA is Primary Nurse. lg3 19:57 Triage completed. lg3 19:57 Bradley Cates MD is Attending Physician. rt 19:57 Arm band placed on left wrist. lg3 20:00 Patient has correct armband on for positive identification. Placed in gown. Bed in low lg3 position. Call light in reach. Side rails up X 1. Client placed on continuous cardiac and pulse oximetry monitoring. NIBP monitoring applied. cardiac monitor technician on. Door closed. Noise minimized. Warm blanket given. 20:00 Maintain EMS IV. Dressing intact. Good blood return noted. Site clean \\T\\ dry. Gauge \\T\\ lg 3 site: 22 L hand. 21:18 Chest Single View XRAY In Process Unspecified. EDMS 11/25 00:32 No provider procedures requiring assistance completed. IV discontinued, intact, lg3 bleeding controlled, No redness/swelling at site. Pressure dressing applied. Administered Medications: No medications were administered Medication: 00:33 VIS not applicable for this client. lg3 Outcome: 11/24 23:42 Discharge ordered by . rt 11/25 00:32 Discharged to home ambulatory. lg3 Condition: stable Discharge instructions given to patient, Instructed on discharge instructions, follow up and referral plans. Demonstrated understanding of instructions, follow-up care. 01:17 Patient left the ED. lg3 Signatures: Dispatcher [employer] Radha Plata RN RN lg3 Bradley Cates MD MD rt Corrections: (The following items were deleted from the chart) 00:29 05/02 23:26 BP 123 / ???; Pulse 64bpm; Resp 84bpm; Pulse Ox 100% RA; lg3 lg3
--- NOTE | 2022-11-24 23:43 | EDPHYS ---
Physician Documentation [facility] Name: Nick Elizondo II Age: 57 yrs Sex: Male : 1965 Arrival Date: 11/24/2022 Time: 19:42 Bed 5 Private MD: ED Physician Bradley Cates HPI: 11/25 01:43 This 57 yrs old Male presents to ER via EMS with complaints of Near syncope, rt hypoglycemia. 01:43 . rt 01:44 Patient was grocery shopping earlier today when he had an acute episode of generalized rt weakness, near syncope. Patient states that he collapsed to the ground but did not hit his head. He denies loss of consciousness. The patient denies other acute complaints. His sugar was reportedly running low per EMS his Accu-Chek, was given dextrose in route, he had complete resolution of the symptoms, states that he feels to be at baseline status. Symptoms are moderate in severity, no other aggravating or alleviating factors.. Historical: - Allergies: 11/24 19:57 No Known Allergies; lg3 - Home Meds: 19:57 Novolin N Sub-Q [Active]; Novolog Sub-Q [Active]; lg3 - PMHx: 19:57 Diabetes - IDDM; lg3 - PSHx: 19:57 cardiac stents; lg3 - Immunization history:: Adult Immunizations unknown, Client reports having NOT received the Covid vaccine. - Social history:: Smoking status: Patient reports the use of cigarette tobacco products, smokes one pack cigarettes per day. Patient uses alcohol, weekly. Patient/guardian denies using street drugs. - Family history:: not pertinent. ROS: 11/25 01:44 Constitutional: Negative for fever, chills, and weight loss, Cardiovascular: Negative rt for chest pain, palpitations, and edema, Respiratory: Negative for shortness of breath, cough, wheezing, and pleuritic chest pain, Abdomen/GI: Negative for abdominal pain, nausea, vomiting, diarrhea, and constipation, MS/Extremity: Negative for injury and deformity, Psych: Negative for depression, anxiety, suicide ideation, homicidal ideation, and hallucinations. Neuro: Positive for near syncope, weakness, Negative for loss of consciousness. Exam: 01:44 Constitutional: This is a well developed, well nourished patient who is awake, alert, rt and in no acute distress. Head/Face: Normocephalic, atraumatic. Chest/axilla: Normal chest wall appearance and motion. Nontender with no deformity. No lesions are appreciated. Cardiovascular: Regular rate and rhythm with a normal S1 and S2. No gallops, murmurs, or rubs. Normal PMI, no JVD. No pulse deficits. Respiratory: Lungs have equal breath sounds bilaterally, clear to auscultation and percussion. No rales, rhonchi or wheezes noted. No increased work of breathing, no retractions or nasal flaring. Abdomen/GI: Soft, non-tender, with normal bowel sounds. No distension or tympany. No guarding or rebound. No evidence of tenderness throughout. MS/ Extremity: Pulses equal, no cyanosis. Neurovascular intact. Full, normal range of motion. Neuro: Awake and alert, GCS 15, oriented to person, place, time, and situation. Cranial nerves II-XII grossly intact. Motor strength 5/5 in all extremities. Sensory grossly intact. Cerebellar exam normal. Normal gait. Psych: Awake, alert, with orientation to person, place and time. Behavior, mood, and affect are within normal limits. 01:44 ECG was reviewed by the Attending Physician. Vital Signs: 11/24 19:53 BP 132 / 74; Pulse 86; Resp 15 S; Temp 97.7(O); Pulse Ox 100% on R/A; Weight 49.9 kg lg3 (R); Height 5 ft. 6 in. (R); Pain 0/10; 21:22 BP 141 / 85; Pulse 92; Resp 16 S; Pulse Ox 99% on R/A; lg3 23:26 BP 123 / 71; Pulse 64; Resp 14 S; Pulse Ox 100% on R/A; lg3 11/25 00:29 BP 118 / 63; Pulse 88; Resp 16 S; Pulse Ox 99% on R/A; lg3 11/24 19:53 Body Mass Index 17.75 (49.90 kg, 167.64 cm) lg3 11/24 19:53 Pain Scale: Adult lg3 MDM: 11/24 19:54 Patient medically screened. bs3 11/25 01:44 Differential Diagnosis Hypoglycemia, sepsis, insulin reaction. Data reviewed: vital rt signs, nurses notes. Consideration of Admission/Observation Escalation of care including admission/observation considered. Care significantly affected by the following chronic conditions: Diabetes. Response to treatment: the patient's symptoms have resolved after treatment. ED course: Patient presents to the ED with hypoglycemia. This did resolve with feeding. I suspect this is due to taking insulin without eating. He is at his baseline status. Accu-Chek after eating 1 hour later shows a blood glucose of 164. Labs otherwise stable. No evidence for infection, sepsis. There is no indications for admission to the hospital at this time, patient is stable for outpatient care. 11/24 20:06 Order name: CBC with Diff; Complete Time: 21:18 rt 11/24 20:06 Order name: CMP; Complete Time: 21:18 rt 11/24 20:06 Order name: Troponin High Sensitivity; Complete Time: 21:18 rt 11/24 20:06 Order name: Magnesium; Complete Time: 21:18 rt 11/24 23:32 Order name: Glucose, Ancillary Testing; Complete Time: 23:39 EDMS 11/24 20:06 Order name: Chest Single View XRAY; Complete Time: 21:26 rt 11/24 20:06 Order name: EKG; Complete Time: 20:06 rt 11/24 20:06 Order name: EKG - Nurse/Tech; Complete Time: 21:59 rt EC:44 Rate is 89 beats/min. Rhythm is regular, Normal Sinus Rhythm with No ectopy. QRS [place] rt is Normal. PA interval is normal. QRS interval is normal. QT interval is normal. No Q waves. T waves are Normal. No ST changes noted. Interpreted by me. Administered Medications: No medications were administered Disposition Summary: 11/24/22 23:42 Discharge Ordered Location: Home rt Problem: new rt Symptoms: are resolved rt Condition: Stable rt Diagnosis - Drug-induced hypoglycemia without coma rt Followup: rt - With: Private Physician - When: 2 - 3 days - Reason: Discharge Instructions: - Discharge Summary Sheet rt - Hypoglycemia, [id number] rt - Preventing Hypoglycemia rt Forms: - Medication Reconciliation Form rt - Thank You Letter rt - Antibiotic Education rt - Prescription Opioid Use rt Signatures: Dispatcher [employer] Radha Plata RN RN lg3 Dean Cespedes MD MD bs3 Bradley Cates MD MD rt
[2022-11-25 01:45] VITALS: TEMP 97.7
[2022-11-25 01:50] VITALS: BP 118/63; O2SAT 99
--- NOTE | 2022-11-25 14:06 | EKG ---
Test Date: 2022-11-24 Test Time: 21:55:40 Veneer Stapler: MAURICIO MEASUREMENT RESULTS: Intervals: Rate: 89 MI: 118 QRSD: 86 QT: 344 QTc: 418 [place]: P: 87 MI: 118 QRS: 72 T: 79 INTERPRETIVE STATEMENTS: Normal sinus rhythm Normal ECG Compared to ECG 03/03/2022 00:45:48 No significant changes Electronically Signed On 11-25-22 14:05:35 CDT by Souleymane Serna
== END 2022-11-25 01:17 | disposition home or self-care (01) ==
LOC: ER 19:42
DX: E11.649 Type 2 diabetes mellitus with hypoglycemia without coma (principal); Z79.4 Long term (current) use of insulin; F17.210 Nicotine dependence, cigarettes, uncomplicated; Z95.818 Presence of other cardiac implants and grafts
CPT/HCPCS: 36415; 71045; 80053; 82947; 83735; 84484; 85025; 93005; 99284

== ENCOUNTER 2022-12-01 07:06 | Inpatient (IN) | payer OTHER, SELFPAY ==
--- OUTSIDE RECORDS SUMMARY | 2022-12-01 07:19 | XMS REPORT | Continuity of Care Document ---
:1965 Author Organization [facility] [place] t Address [address] [place] [address] [place] [id number] Care Team Providers Name Role Phone PCP, PATIENT DOES NOT HAVE A Primary Care Physician Unavaila NASRIN Madison Attending Clinician Unavailable Bhakti Attending Clinician Unavailable Doctor Unassigned, [place] Attending Clinician Unavailable Wen Alex RN Attending Clinician Stephany Boateng Attending Clinician Travis Morel MD Attending Clinician Trevor Lockhart MD Attending Clinician Aislinn Hathaway MD Attending Clinician AISLINN HATHAWAY Attending Clinician Unavailable DU BESS Attending Clinician Unavailable Du Bess MD Attending Clinician Salena Masters Attending Clinician Tariq CHOWDHURY, Avtar K.HAllison Attending Clinician Jaswinder Duncan Attending Clinician Leobardo Estevez Attending Clinician NASRIN SINGH Admitting Clinician Unavailable Bhakti Admitting Clinician Unavailable Trevor Lockhart MD Admitting Clinician TREVOR LOCKHART JR Admitting Clinician Unavailable DU BESS Admitting Clinician Unavailable Jaswinder Duncan Darlene Admitting Clinician Payers Payer Name Policy Type [...] 00:00: Medical involving involving 00 Cent er [place] comanche coronary coronary artery of artery of comanche comanche heart heart without without angina angina pectoris pectoris Ischemic Ischemic Disease [facility] cardiomyop cardiomyop nce 5-12 [facility] at[facility] athy 00:00: Medical 00 Center Cocaine Cocaine Disease [facility] abuse abuse [facility] Odynophagi Odynophagi Disease Active [facility]12 [facility]: Medical 00 [place] DKA DKA Disease Recur[facility] (diabetic (diabetic nce 5-10 [facility] ketoacidos ketoacidos 00:00: Me dical es) es) 00 Center E44.0 E44.0 Disease Active Univers Moderate Moderate 2-17 ity of protein protein 00:00: [place] calorie calorie 00 Medical malnutriti malnutriti Br anch on on Diabetic Diabetic Disease Active Unive rs ketoacidos ketoacidos 2-16 it y of is is 00:00: [place] 00 Medical Branch TROUBLE TROUBLE Diagnosis Active 2018-01-07 [facility] BREATHING BREATHING 01-06 01:18:00 l Active 00:00: Rolf 01/06/2018 00 [facility] Rolf DKA DKA Diagnosis Active 2018-01-13 Mem oria Active 01-06 21:59:00 l 01/06/2018 00:00: Donnie SALINAS 00 [facility] Type 1 Type 1 Disease Active 2016-07 Univers diabetes diabetes 1-02 ity of mellitus mellitus 00:00: [place] with with 00 Medical complicati complicati Br anch on on CAD CAD Disease Active Univers (coronary (coronary 5-17 ity of artery artery 00:00: [place] disease), disease), 00 Medi clementine [place] Branch coronary coronary artery artery CAD CAD Disease Active Univers (coronary (coronary 5-17 ity of artery artery 00:00: [place] disease), disease), 00 Medi clementine com[place] comanche Branch coronary coronary artery artery Type 1 Type 1 Problem 2018-01-11 [place] diabetes diabetes 00:37:10 l mellitus mellitus Donnie n with with ketoacidos ketoacidos is without is without coma coma 01/11/2018 [facility] TYPE 1 TYPE 1 Diagnosis Active 2018-01-13 M emoria DIABETES DIABETES 21:59:00 l MELLITUS MELLITUS Donnie n WITH WITH KETOACIDOS KETOACIDOS Active [facility] Allergies, Adverse Reactions, Alerts Allergy Allergy Status Severity Reaction(s) Onset Inactive Treating Comm ents Source Name Type Date Date Clinician NO KNOWN Allergy Active [facility] NO KNOWN Drug Active Univers ALLERGIE Class ity of S [facility] Social History Social Habit Start Date Stop Date Quantity Comments Source History [facility] Alcohol Binge Medical [facility] ter History [facility] Alcohol Std Drinks [facility] History of tobacco Cigarette Smoker [facility] use [facility] Alcohol intake 2019-12-07 2019-12-[address] [facility] es 00:00:00 00:00:00 non-drinker of Medical Ce nter alcohol (finding) Cigarettes smoked 2019-12-03 2019-12-[address] [facility] current (pack per 00:00:00 00:00:00 Medical Center day) - Reported History [facility] 2019-12-03 2019-12-[address] [facility] Alcohol Frequency 00:00:00 00:00:00 [facility] Tobacco use and 2019-08-17 2019-08-17 Current user Univers ity of exposure 00:00:00 00:00:00 [facility] Cigarette 2019-08-17 2019-08-17 University of pack-years 00:00:00 00:00:00 [facility] Social History 2018-01-07 2018-01-07 [facility] Marimar barraza 09:14:53 09:14:53 Alcohol Comment 2016-11-19 2016-11-19 once a month Univers ity of 00:00:00 00:00:00 [facility] Sex Assigned At [address] [address] [facility] 00:00:00 00:00:00 Medical Center Smoking Status Start Date Stop Date Source Current every day smoker 2019-08-17 00:00:00 [facility] Medications Ordered Filled Start Stop [...] Luke s 5 MG tablet 15:14: daily. [facility] 20 [place] albuterol 2020-0 Yes 2.5mg Q.5D Take 2.[address] (PROVENTIL) 5-15 mg by [facility]ukes 2.5 mg /3 15:14: nebulizati Me dical mL (0.083 20 on 2 (two) Cent er %) times nebulizer daily. solution mirtazapine 2020-0 Yes 30mg Take [address] [facility] (REMERON 5-15 by mouth. [facility]ukes ORAL) 15:14: [address] lisinopriL 2020-0 Yes 5mg Take [address] (PRINIVIL,Z 5-15 by mouth. Angella es ESTRIL) 5 15:14: Medical tablet 20 [place] aspirin 81 2020-0 Yes 81mg QD Take [address] MG chewable 5-15 by mouth Luke s tablet 15:14: daily. [address] metoprolol 2020-0 Yes 12.5mg Q.5D Take 12.[address] tartrate 5-15 mg by [facility]ukes (LOPRESSOR) 15:14: mouth 2 Med ical 25 MG 20 (two) Center tablet times daily. predniSONE 2020-0 Yes 5mg QD Take [address] (DELTASONE) 5-15 by mouth Luke s 5 MG tablet 15:14: daily. [facility] 20 [place] albuterol 2020-0 Yes 2.5mg Q.5D Take 2.[address] (PROVENTIL) 5-15 mg by Lukes 2.5 mg /3 15:14: nebulizati Me dical mL (0.083 20 on 2 (two) Cent er %) times nebulizer daily. solution mirtazapine 2020-0 Yes 30mg Take [address] (REMERON 5-15 by mouth. [facility] ORAL) 15:14: Medical [address] [place] [address] lisinopriL 2020-0 Yes 5mg Take [address] (PRINIVIL,Z 5-15 by mouth. Angella es ESTRIL) 5 15:14: Medical MG tablet 20 [place] aspirin 81 2020-0 Yes 81mg QD Take [address] MG chewable 5-15 by mouth Luke s tablet 15:14: daily. [address] traMADoL 2020-0 Yes 50mg Take [address] (ULTRAM) 50 5-15 tablet (50 Francie kes mg tablet 00:00: mg total) Med ical 00 by mouth Center every 8 (eight) hours as needed for Pain. Max Daily Amount: 150 mg traMADoL 2020-0 Yes 50mg Take [address] (ULTRAM) 50 5-15 tablet (50 Francie kes mg tablet 00:00: mg total) Med ical 00 by mouth Center every 8 (eight) hours as needed for Pain. Max Daily Amount: 150 mg insulin NPH 2020-0 Yes 10U 10 Units, U nivers (HUMULIN N) 2-20 Subcutaneo it y of injection 15:00: us, QAM, [place] 10 Units 00 First dose Medic al on [facility] Branch 09/14/19 at 0900, Until Discontinu ed, Routine flu vaccine 2020-0 2020- No .5mL 0.5 mL, Un dg 6 months -14 09-20 Intramuscu ity of and up 00:30: 12:29 lar, ONCE, [place] (FLUZONE 00 :00 1 dose, Medical QUAD Wed Branch [phone] 09/13/19 at (PF)) 1830, syringe 0.5 Routine mL aspirin 81 2020-0 Yes 81mg Take 81 mg U nivers mg chewable 2-20 by mouth ity of tablet 00:22: daily. [address] lisinopril 2020-0 Yes 5mg Take 5 mg Un dg 5 mg tablet 2-20 by mouth 2 it y of 00:22: (two) [place] [address] times Medical daily. Branch aspirin 81 2020-0 Yes 81mg Take 81 mg U nivers mg chewable 2-20 by mouth ity of tablet 00:22: daily. [place] 41 Medical Branch lisinopril 2020-0 Yes 5mg Take 5 mg Un dg 5 mg tablet 2-20 by mouth 2 it y of 00:22: (two) [place] [address] times Medical daily. Branch aspirin 81 2020-0 Yes 81mg Take 81 mg U nivers mg chewable 2-20 by mouth ity of tablet 00:22: daily. [place] [address] Medical Branch lisinopril 2020-0 Yes 5mg Take 5 mg Un dg 5 mg tablet 2-20 by mouth 2 it y of 00:22: (two) [place] [address] times Medical daily. Branch aspirin 81 2020-0 Yes 81mg Take 81 mg U nivers mg chewable 2-20 by mouth ity of tablet 00:22: daily. [place] [address] Medical Branch lisinopril 2020-0 Yes 5mg Take 5 mg Un dg 5 mg tablet 2-20 by mouth 2 it y of 00:22: (two) [place] [address] times Medical daily. Branch aspirin 81 2020-0 Yes 81mg Take 81 mg U nivers mg chewable 2-20 by mouth ity of tablet 00:22: daily. [place] [address] Medical Branch lisinopril 2020-0 Yes 5mg Take 5 mg Un dg 5 mg tablet 2-20 by mouth 2 it y of 00:22: (two) [place] [address] times Medical daily. Branch aspirin 81 2020-0 Yes 81mg Take 81 mg U nivers mg chewable 2-20 by mouth ity of tablet 00:22: daily. [place] [address] Medical Branch lisinopril 2020-0 Yes 5mg Take 5 mg Un dg 5 mg tablet 2-20 by mouth 2 it y of 00:22: (two) [place] [address] times Medical daily. Branch insulin NPH 2020-0 Yes [id number] 10U inject 10 Univers 100 unit/mL 2-20 Units ity of injection 00:00: under the Nas as 00 skin every Medical morning. Branch insulin NPH 2020-0 Yes [id number] 10U inject 10 Univers 100 unit/mL 2-20 Units ity of injection 00:00: under the Nas as 00 skin every Medical morning. Branch insulin NPH 2020-0 Yes [id number] 10U inject 10 Univers 100 unit/mL 2-20 Units ity of injection 00:00: under the Nas as 00 skin every Medical morning. Branch insulin NPH 2020-0 Yes [id number] 10U inject 10 Univers 100 unit/mL 2-20 Units ity of injection 00:00: under the Nas as 00 skin every Medical morning. [place] insulin NPH 2020-0 Yes [id number] 10U inject 10 Univers 100 unit/mL 2-20 Units ity of injection 00:00: under the Nas as 00 skin every Medical morning. [place] insulin NPH 2020-0 Yes [id number] 10U inject 10 Univers 100 unit/mL 2-20 Units ity of injection 00:00: under the Nas as 00 skin every Medical morning. [place] insulin NPH 2020-0 Yes 6U 6 Units, Un dg (HUMULIN N) -19 Subcutaneo it y of injection 6 23:00: us, QPM, [place] Units 00 First dose Medical on Wed [place] 09/13/19 at 1700, Until Discontinu ed, Routine insulin 2020-0 Yes 3U 3 Units, Univer s regular - Subcutaneo ity of human 22:30: us, BIDAC, [place] (HUMULIN R) 00 First dose Me dical injection 3 on Wed [place] Units 09/13/19 at 1630, Until Discontinu ed, Routine clopidogreL 2020-0 Yes 75mg 75 mg, Univ ers (PLAVIX) 09-13 Oral, ity of tablet 75 15:00: DAILY, [place] mg 00 First dose Medical on Wed [place] 09/13/19 at 0900, Until Discontinu ed, Routine insulin NPH 2020-0 2020- No 6U 6 Units, U nivers (HUMULIN N) -13 09- Subcutaneo i ty of injection 6 15:00: 22:02 us, QAM, [place] Units 00 :45 First dose Medical on Wed [place] 09/13/19 at 0900, Until Discontinu ed, Routine metoprolol 2020-0 Yes 12.5mg 12.5 mg, U nivers tartrate -19 Oral, BID, ity o f (LOPRESSOR) 02:00: First dose [place] half tablet 00 on Tue Medica l 12.5 mg 09/12/19 at Branch 2000, Until Discontinu ed, Routine metoprolol 2020-0 Yes [id number] 12.5mg Take 0.5 Univers tartrate 25 2-19 tablets by it y of mg tablet 00:00: mouth 2 [place] 00 (two) Medical times [place] daily. insulin NPH 2020-0 Yes [id number] 6U inject 6 Univers 100 unit/mL 2-19 Units ity of injection 00:00: under the Nas as 00 skin every Medical evening. Branch insulin 2020-0 Yes [id number] 3U inject 3 U nivers regular 2-19 Units ity of human 100 00:00: under the Nas as unit/mL 00 skin 2 Medical injection (two) Branch times daily before breakfast and dinner. metoprolol 2020-0 Yes [id number] 12.5mg Take 0.5 Univers tartrate 25 2-19 tablets by it y of mg tablet 00:00: mouth 2 (two) Medical times Branch daily. insulin NPH 2020-0 Yes [id number] 6U inject 6 Univers 100 unit/mL 2-19 Units ity of injection 00:00: under the Nas as 00 skin every Medical evening. Branch insulin 2020-0 Yes [id number] 3U inject 3 U nivers regular 2-19 Units ity of human 100 00:00: under the Nas as unit/mL 00 skin 2 Medical injection (two) Branch times daily before breakfast and dinner. metoprolol 2020-0 Yes [id number] 12.5mg Take 0.5 Univers tartrate 25 2-19 tablets by it y of mg tablet 00:00: mouth 2 (two) Medical times Branch daily. insulin NPH 2020-0 Yes [id number] 6U inject 6 Univers 100 unit/mL 2-19 Units ity of injection 00:00: under the Nas as 00 skin every Medical evening. Branch insulin 2020-0 Yes [id number] 3U inject 3 U nivers regular 2-19 Units ity of human 100 00:00: under the Nas as unit/mL 00 skin 2 Medical injection (two) Branch times daily before breakfast and dinner. metoprolol 2020-0 Yes [id number] 12.5mg Take 0.5 Univers tartrate 25 2-19 tablets by it y of mg tablet 00:00: mouth 2 (two) Medical times Branch daily. insulin NPH 2020-0 Yes [id number] 6U inject 6 Univers 100 unit/mL 2-19 Units ity of injection 00:00: under the Nas as 00 skin every Medical evening. Branch insulin 2020-0 Yes [id number] 3U inject 3 U nivers regular 2-19 Units ity of human 100 00:00: under the Nas as unit/mL 00 skin 2 Medical injection (two) Branch times daily before breakfast and dinner. metoprolol 2020-0 Yes [id number] 12.5mg Take 0.5 Univers tartrate 25 2-19 tablets by it y of mg tablet 00:00: mouth 2 [place] 00 (two) Medical times Branch daily. insulin NPH 2020-0 Yes [id number] 6U inject 6 Univers 100 unit/mL 2-19 Units ity of injection 00:00: under the Nas as 00 skin every Medical evening. Branch insulin 2020-0 Yes [id number] 3U inject 3 U nivers regular 2-19 Units ity of human 100 00:00: under the Nas as unit/mL 00 skin 2 Medical injection (two) Branch times daily before breakfast and dinner. metoprolol 2020-0 Yes [id number] 12.5mg Take 0.5 Univers tartrate 25 2-19 tablets by it y of mg tablet 00:00: mouth 2 [place] 00 (two) Medical times Branch daily. insulin NPH 2020-0 Yes [id number] 6U inject 6 Univers 100 unit/mL 2-19 Units ity of injection 00:00: under the Nas as 00 skin every Medical evening. Branch insulin 2020-0 Yes [id number] 3U inject 3 U nivers regular 2-19 Units ity of human 100 00:00: under the Nas as unit/mL 00 skin 2 Medical injection (two) Branch times daily before breakfast and dinner. Sliding 2020-0 Yes Subcutaneo Univ ers Scale 2-18 us, Q4H, ity of Insulin - 22:00: First dose [place] Aspart 00 on [facility] (NOVOLOG) + 09/12/19 at anch Fsbg 1600, Testing Until Discontinu ed, Routine alum-mag 2020-0 Yes 30mL 30 mL, Univers hydroxide-s 2-18 Oral, ity of imeth 05:11: Q6HPRN, [place] (MAALOX 47 Starting Medical PLUS / [facility] Branch MAG-AL 09/11/19 at PLUS) 2311, 200-200-20 Until mg/5 mL Discontinu suspension ed, 30 mL Routine, Indigestio n atorvastati 2020-0 Yes 40mg 40 mg, Univ ers n (LIPITOR) 2-18 Enteral, ity of tablet 40 03:00: QHS, First [place] mg 00 dose on Medical Mon Branch 09/11/19 at 2100, Until Discontinu ed, Routine phenol 2020-0 Yes 1{spray 1 [place], Univ ers (SORE -18 } Oral, PRN, ity of THROAT 02:56: Starting [place] (PHENOL)) 32 Mon Medical 1.4 % spray 09/11/19 at Br anch bottle 1 2055, [place] Until Discontinu ed, Routine, Sore throat benzocaine- 2020-0 Yes 1{lozen 1 Loz[place], Univers menthol 2-18 ge} Oral, ity of (CEPACOL 02:46: Q4HPRN, [place] SORE THROAT 32 Starting Medi clementine (CHELY-MEN)) [facility] lozenge 1 09/11/19 at Lozenge 2045, Until Discontinu ed, Routine, Sore throat alum-mag 2019-0 2020- No 30mL 30 mL, Univer s hydroxide-s 09-11 Oral, ity of imeth 23:30: 00:15 ONCE, 1 [place] (MAALOX 00 :00 dose, [facility] Medical PLUS / 09/11/19 at Branch MAG-AL 1730, PLUS) Routine 200-200-20 mg/5 mL suspension 30 mL Sliding 0 2020- No Subcutaneo Uni vers Scale 09-11 us, Q3H, ity of Insulin - 23:00: 18:31 First dose [place] Aspart 00 :37 on [facility] [place] (NOVOLOG) + 09/11/19 at Br anch Fsbg 1700, Testing Until Discontinu ed, Routine D5W 0.45% 2019-0 2020- No IV Univers NaCl 09-11 Infusion, ity of (1/2NS) 1 L 22:30: 05:11 at 150 Nas as + KCL 20 00 :07 mL/hr, Medical mEq CONTINUOUS Branch , Starting 09/11/19 at 1630, Until [facility] 09/11/19 at 2311, Routine acetaminoph 2020-0 Yes 650mg 650 mg, Un dg en 09-11 Oral, ity of (TYLENOL) 21:04: Q6HPRN, [place] tablet 650 00 Starting Medic al mg [facility] 09/11/19 at 1504, Until Discontinu ed, Routine, Pain (scale 1-3) Sliding 2019-0 2020- No Subcutaneo Uni vers Scale 2-17 02-17 us, Q4H, ity of Insulin - 18:00: 22:14 First dose [place] Aspart 00 :50 on Wed Medical (NOVOLOG) + 09/11/19 at Br anch Fsbg 1200, Testing Until Discontinu ed, Routine Saline 2020-0 2020- No 6mL 6 mL, Univers Bubble 09-11 Injection, ity of Study 17:45: 15:45 SEE-INSTRU [place] 00 :34 CTIONS, Medical Starting Branch [facility] 09/11/19 at 1145, Until Wed09/13/19 at 0945, Routine Saline 2020-0 2020- No 6mL 6 mL, Univers Bubble 09-11 Injection, ity of Study 17:45: 15:45 SEE-INSTRU [place] 00 :34 CTIONS, Medical Starting Branch 09/11/19 at 1145, Until Wed09/13/19 at 0945, Routine insulin 2020-0 2020- No .15U/kg 3 Units Uni vers aspart 09-11 /d (rounded ity of RAPID 16:15: 22:02 from 2.55 [place] (NOVOLOG) 00 :45 Units = Medical injection 3 0.15 Branch Units Units/kg/d ay ?51 kg), Subcutaneo us, TID MEALS, First dose on Wed09/11/19 at 1015, Until Discontinu ed, Routine pantoprazol 2020-0 Yes 40mg 40 mg, IV U nivers e 09-11 Piggyback, ity of (PROTONIX) 15:00: DAILY, [place] 40 mg in 00 First dose Medic al NaCl 0.9% on Wed Branch (NS) 100 mL 09/11/19 at MINI-BAG 0900, Until Discontinu ed, 100 mL heparin 2020-0 Yes 5000U 5,000 Univers (porcine) - Units, ity of injection 14:00: Subcutaneo [place] 5,000 Units 00 us, Q12H, Med ical First dose Branch on Wed09/11/19 at 0800, Until Discontinu ed, Routine dextrose 2020-0 2020- No 250mL 250 mL, IV U [...] room temperatur e. <b r> lactated 2019- 2020- No 500mL at 999 Unive rs ringers IV 09-11- mL/hr, 500 it y of infusion 02:18: 03:00 mL, [place] 500 mL 00 :00 Intravenou Medical s, ONCE, 1 Branch dose, 09/10/19 at 2030, Routine heparin 2019- 2020- No 12U/kg/ 12 Univer s 25,000 09-10- h Units/kg/h ity of units/250mL 18:30: 02:20 [...] 1230, Until 09/11/19 at 1620, Routine insulin 2019- 2020- No .1U/kg/ 0.1 Univer s regular -10 09-19 h Units/kg/h ity o f human 18:00: 15:44 r ?51 kg [place] (HUMULIN R) 42 :34 (5.1 Medical 100 Units mL/hr), IV Bran ch in NaCl Infusion, 0.9% (NS) TITRATE, 100 mL Starting infusion 09/10/19 at 1200, Until 09/13/19 at 0944 heparin 2019-0 2020- No 60U/kg 3,060 Univer s 1000 09-10 Units (60 ity of unit/mL 17:30: 18:40 Units/kg [place] injection 00 :00 ?51 kg), Medica l Soln 3,060 IV Push, Branc h Units ONCE, 1 dose, [place] 09/10/19 at 1130, Routine aspirin 2020-0 Yes 81mg 81 mg, Univers chewable 16 Enteral, ity of tablet 81 15:30: DAILY, [place] mg 00 First dose Medical on [facility] 09/10/19 at 0930, Until Discontinu ed, Routine glucagon 2019-0 Yes 1mg 1 mg, Univers (GLUCAGEN 16 Intramuscu ity of DIAGNOSTIC 15:00: lar, PRN, [place] KIT) 11 Starting Medical injection 1 [facility] mg 09/10/19 at 0900, Until Discontinu ed, MACKENZIE, Blood Glucose < or = 70 mg/dL and patient is unable to swallow or has mental changes. dextrose 50 2019-0 Yes 25mL 25 mL, Univ ers % in water 16 Slow IV ity of (D50W) 15:00: Push, PRN, [place] injection 10 Starting Medica l 25 mL [facility] 09/10/19 at 0900, Until Discontinu ed, MACKENZIE, Blood Glucose < or = 70 mg/dL and patient is unable to swallow or has mental status changes. Sliding 2020- No Subcutaneo Uni vers Scale 09-10 us, AC+HS, ity of Insulin-Reg 13:30: 18:39 First dose [place] ular + Fsbg 00 :39 on [place] Medica l Testing 09/10/19 at Branch 0730, Until Discontinu ed, Routine pantoprazol 2020- No 80mg 80 mg, IV Univers e 09-10 Piggyback, ity of (PROTONIX) 13:30: 13:42 ONCE, 1 [place] as 80 mg in 00 :00 dose, [place] Medica l NaCl 0.9% 09/10/19 at Bran ch (NS) 100 mL 0730, 100 IV mL Piggyback NaCl 0.9% 2020- No 1000mL at 250 Uni vers (NS) IV 09-10 mL/hr, ity of infusion 09:30: 18:06 Intravenou [...] 1000mL at 250 Uni vers (NS) IV 09-10 mL/hr, ity of infusion 05:30: 05:43 1,000 [...] Medical 09/09/19 at Branch 2130, STAT ketamine 2019-0 2020- No 100mg 100 mg, Univ ers (KETALAR) 09-10 Slow IV ity of injection 03:30: 22:12 Push, [place] 100 mg 00 :00 ONCE, 1 Medical dose, Sat Branch 09/09/19 at 2130, MACKENZIE NORepinephr 2019-0 2020- No .05ug/k 0.05-3 Univers ine 4 mg in 09-10- g/min mcg/kg/min ity of D5W 250 mL 02:49: 20:30 ?51.3 kg [place] infusion 10 :44 (9.6188-57 Medic al RTU 7.125 Branch mL/hr, rounded to 9.62-577.1 3 mL/hr), IV Infusion, TITRATE, MAP Goal > or = 65 mmHg, Starting 09/09/19 at 2049
In itiate titration at 0.05 mcg/kg/min . &nb sp;Increas e by 0.01 mcg/kg/min every 30 seconds to 5 minutes as needed to reach and maintain goal blood pressure.& nbsp;&nbsp ;Maximum dose = 3 mcg/kg/min . &nb sp;If goal not maintained at maximum allowed dose, contact prescriber .
midazolam 2019- No 5mg 5 mg, IV Uni vers (VERSED) 09-10-15 Push, ity of injection 5 02:45: 19:40 ONCE, 1 [place] mg 00 :00 dose, Sat Medical 09/09/19 at Branch 2044, STAT midazolam 2020- No 5mg 5 mg, IV Uni vers (VERSED) 09-10-16 Push, ity of injection 5 01:38: 01:39 ONCE, 1 [place] mg 00 :00 dose, Sat Medical 09/09/19 at Branch 1944, STAT FENTanyl PF 2019- 2020- No 25ug/h 25-300 U nivers (SUBLIMAZE 09-09 [...] allowed dose, contact prescriber .
propofol IV 2020- No 5ug/kg/ 5-75 Un dg infusion 09-09-16 min mcg/kg/min ity of 23:30: 08:18 ?51.3 kg [place] 16 :37 (1.539-23. Medical 085 mL/hr, Branch [...] be discarded after 12 hours.
NaCl 0.9% 2019-2019- No 1500mL at 999 Uni vers (NS) bolus 09-09-15 mL/hr, ity of infusion 23:00: 23:45 1,500 [...] :00 dose, Sat Medical syringe 09/09/19 at [place] 1,000 mg 1700, STAT insulin 2019- 2020- No 10U 10 Units, Univ ers regular 09-09- Slow IV ity of human 23:00: 21:50 Push, [place] (HUMULIN R) 00 :00 ONCE, 1 Medic al injection dose, Sat Branc h 10 Units 09/09/19 at 1700, Routine lactated 2019- 2020- No 1000mL at 999 Univ ers ringers IV 09-09 02-16 mL/hr, ity of infusion 22:00: 18:11 1,000 mL, Nas as 1,000 mL 00 :43 IV Medical Infusion, Branch CONTINUOUS , Starting 09/09/19 at 1600, Until 09/10/19 at 1211, MACKENZIE NaCl 0.9% 2020-0 2020- No 15mL/kg at 769.5 Univers (NS) bolus 2-15 02-15 /h mL/hr, 15 ity of infusion 21:45: 21:31 mL/kg/hr [place] 00 :00 ?51.3 kg Medical (769.5 Branch mL/hr), IV Infusion, ONCE, 1 dose, 09/09/19 at 1545, STAT ondansetron 2019-0 2020- No 4mg 4 mg, Slow Univers (ZOFRAN 09-09 IV Push, ity of (PF)) 21:45: 20:57 ONCE, 1 [place] injection 4 00 :00 dose, Sat Med ical mg 09/09/19 at Branch 1545, MACKENZIE FENTanyl PF 2019-2019- No 50ug 50 mcg, Un dg (SUBLIMAZE 09-09 Slow IV ity o f (PF)) 20:39: 20:30 Push, [place] injection 47 :44 Q30MIN Medical 50 mcg PRN, 3 Branch doses, Starting 09/09/19 at 1439, Until 09/12/19 at 1430, MACKENZIE, Pain (scale 7-10) insulin 2020-0 2020- No 6U 6 Units, Unive rs regular 08-17 Subcutaneo ity o f human 13:15: 12:17 , ONCE, [place] (HUMULIN R) 00 :00 1 dose, Medic al injection 6 [place] Branch Units 08/17/19 at 0715, Routine NaCl 0.9% 2020-0 Yes 1000mL at 999 Univ ers (NS) IV 1-23 mL/hr, ity of infusion 11:30: Intravenou Nas as 1,000 mL 00 s, Medical CONTINUOUS Branch , Starting [place] 08/17/19 at 0530, Until Discontinu ed, Routine ondansetron 2020-0 2020- No 4mg 4 mg, Slow Univers (ZOFRAN 08-17 IV Push, ity of (PF)) 11:30: 11:01 ONCE, 1 [place] injection 4 00 :00 dose, [place] Med ical mg 08/17/19 at Branch 0530, MACKENZIE FENTanyl PF 2020- No 50ug 50 mcg, Un dg (SUBLIMAZE 08-17 Slow IV ity o f (PF)) 11:30: 11:01 Push, [place] injection 00 :00 ONCE, 1 Medical 50 mcg dose, [place] Branch 08/17/19 at 0530, Routine aspirin 81 2019-0 Yes 81mg Take 81 mg U nivers mg chewable 08-17 by mouth ity of tablet 10:20: daily. [place] 15 Medical Branch lisinopril 2019-0 Yes 5mg Take 5 mg Un dg 5 mg tablet 08-17 by mouth 2 it y of 10:20: (two) [place] 15 times Medical daily. Branch ondansetron 0 Yes [id number] 4mg Take 1 Univers (ZOFRAN) 4 08-17 tablet by ity of mg tablet 00:00: mouth [place] 00 every 8 Medical (eight) Branch hours as needed for Nausea and Vomiting (N/V). traMADol 0 Yes [id number] 50mg Take 1 [facility] vers (ULTRAM) 50 08-17 tablet by ity of mg tablet 00:00: mouth [place] 00 every 6 Medical (six) Branch hours as needed for Pain (scale 7-10). ondansetron 2019-0 2020- No [id number] 4mg Take 1 [facility] (ZOFRAN) 4 08-17 tablet by ity of mg tablet 00:00: 00:00 mouth [place] 00 :00 every 8 Medical (eight) Branch hours as needed for Nausea and Vomiting (N/V). traMADol 2020- No [id number] 50mg Take 1 Un dg (ULTRAM) 50 08-17 tablet by it y of mg tablet 00:00: 00:00 mouth [place] 00 :00 every 6 Medical (six) Branch hours as needed for Pain (scale 7-10). ezetimibe 2018-0 Yes 10mg Take 1 Univer [...] 16:59: (two) [place] 15 times Medical daily. [place] aspirin 81 2019-0 Yes 81mg Take 81 mg U nivers mg chewable 7-02 by mouth ity of tablet 16:44: daily. [address] aspirin 81 2019-0 Yes 81mg Take 81 mg U nivers mg chewable 7-02 by mouth ity of tablet 16:44: daily. [address] aspirin 81 2019-0 Yes 81mg Take 81 mg U nivers mg chewable 7-02 by mouth ity of tablet 16:44: daily. [address] aspirin 81 2019-0 Yes 81mg Take 81 mg U nivers mg chewable 7-02 by mouth ity of tablet 16:44: daily. [address] ondansetron 2018-0 Yes [id number] 4mg Take 1 [facility] 4 mg 6-16 tablet by ity of disintegrat 00:00: mouth [place] ing tablet 00 every 8 Medica l (eight) Branch hours as needed for Nausea and Vomiting (N/V). ondansetron 2019-0 Yes [id number] 4mg Take 1 [facility] 4 mg 6-16 tablet by ity of disintegrat 00:00: mouth [place] ing tablet 00 every 8 Medica l (eight) Branch hours as needed for Nausea and Vomiting (N/V). ondansetron 2019-0 Yes [id number] 4mg Take 1 [facility] 4 mg 6-16 tablet by ity of disintegrat 00:00: mouth [place] ing tablet 00 every 8 Medica l (eight) Branch hours as needed for Nausea and Vomiting (N/V). ondansetron 2019-0 Yes [id number] 4mg Take 1 [facility] 4 mg 6-16 tablet by ity of disintegrat 00:00: mouth [place] ing tablet 00 every 8 Medica l (eight) Branch hours as needed for Nausea and Vomiting (N/V). ondansetron 2019-0 Yes [id number] 4mg Take 1 [facility] 4 mg 6-16 tablet by ity of disintegrat 00:00: mouth [place] ing tablet 00 every 8 Medica l (eight) Branch hours as needed for Nausea and Vomiting (N/V). ondansetron 2020- No [id number] 4mg Take 1 [facility] 4 mg 6-16 -19 tablet by ity of disintegrat 00:00: [place] tablet 00 :00 every 8 Medica l (eight) Branch hours as needed for Nausea and Vomiting (N/V). atorvastati Yes 80mg QD Take [address] [facility] (LIPITOR) 5-09 by mouth [place] 80 MG 00:00: daily. Medical tablet 00 [place] atorvasta Yes 80mg QD Take [address] [facility] (LIPITOR) 5-09 by mouth [place] [facility] 80 MG 00:00: daily. Medical tablet 00 [place] ATORVASTATI Yes [id number] TAKE ONE Univers N 80 mg 5- 07 TABLET BY ity of tablet 00:00: MOUTH AT [address] Medical Branch METOPROLOL 2019-0 Yes [id number] TAKE ONE Univers TARTRATE 25 5- 07 TABLET BY ity of mg tablet 00:00: MOUTH [place] [address] TWICE A Medical DAY Branch ATORVASTATI 0 Yes [id number] TAKE ONE Univers N 80 mg 5- 07 TABLET BY ity of tablet 00:00: MOUTH AT [address] Medical Branch METOPROLOL 2019-0 Yes [id number] TAKE ONE Univers TARTRATE 25 5-09 07 TABLET BY ity of mg tablet 00:00: MOUTH [place] [address] TWICE A Medical DAY Branch ATORVASTATI 2018-0 Yes [id number] TAKE ONE [facility] N 80 mg 5-09 07 TABLET BY ity of tablet 00:00: MOUTH AT [address] Medical Branch METOPROLOL 2019-0 Yes [id number] TAKE ONE [facility] TARTRATE 25 5- 07 TABLET BY ity of mg tablet 00:00: MOUTH [place] [address] TWICE A Medical DAY Branch ATORVASTATI 2018-0 Yes [id number] TAKE ONE [facility] N 80 mg 5-09 07 TABLET BY ity of tablet 00:00: MOUTH AT [address] Medical Branch ATORVASTATI 2018-0 Yes [id number] TAKE ONE [facility] N 80 mg 5-09 07 TABLET BY ity of tablet 00:00: MOUTH AT [address] Medical Branch ATORVASTATI 2019-0 Yes [id number] TAKE ONE [facility] N 80 mg 5- 07 TABLET BY ity of tablet 00:00: MOUTH AT [address] Medical Branch ATORVASTATI 2019-0 Yes [id number] TAKE ONE Univers N 80 mg 5- 07 TABLET BY ity of tablet 00:00: MOUTH AT [address] Medical Branch ATORVASTATI 2019-0 Yes [id number] TAKE ONE [facility] N 80 mg 5- 07 TABLET BY ity of tablet 00:00: MOUTH AT [address] Medical Branch ATORVASTATI 2018-0 Yes [id number] TAKE ONE [facility] N 80 mg 5-09 TABLET BY ity of tablet 00:00: MOUTH AT [address] Medical Branch METOPROLOL 2019-0 Yes [id number] TAKE ONE Univers TARTRATE 25 5- 07 TABLET BY ity of mg tablet 00:00: MOUTH [place] [address] TWICE A Medical DAY Branch ATORVASTATI 2019-0 Yes [id number] TAKE ONE Univers N 80 mg 5- 07 TABLET BY ity of tablet 00:00: MOUTH AT [address] Medical Branch METOPROLOL 2019-0 Yes [id number] TAKE ONE Univers TARTRATE 25 5- 07 TABLET BY ity of mg tablet 00:00: MOUTH [place] [address] TWICE A Medical DAY Branch ATORVASTATI 2019-0 Yes [id number] TAKE ONE Univers N 80 mg 5- 07 TABLET BY ity of tablet 00:00: MOUTH AT [address] Medical Branch METOPROLOL 2019-0 2020- No [id number] TAKE ONE Univers TARTRATE 25 5-09 - 07 TABLET BY it y of mg tablet 00:00: 00:00 MOUTH [place] 00 :00 TWICE A Medical DAY Branch clopidogreL 2019-0 Yes 75mg QD Take [address] [facility] (PLAVIX) 75 4-04 by mouth [place] [facility] mg tablet 00:00: daily. Medica [address] clopidogreL 2019-0 Yes 75mg QD Take [address] [facility] (PLAVIX) 75 4-04 by mouth [place] [facility] mg tablet 00:00: daily. Medica [address] clopidogrel 2019-0 Yes [id number] 75mg Take 1 [facility] 75 mg 4-04 07 tablet by ity of tablet 00:00: mouth [place] 00 daily. Medical Branch clopidogrel 2019-0 Yes [id number] 75mg Take 1 [facility] 75 mg 4-04 07 tablet by ity of tablet 00:00: mouth [place] 00 daily. [facility] clopidogrel 2019-0 Yes [id number] 75mg Take 1 [facility] 75 mg 4-04 07 tablet by ity of tablet 00:00: mouth [place] 00 daily. [facility] clopidogrel 2019-0 Yes [id number] 75mg Take 1 [facility] 75 mg 4-04 07 tablet by ity of tablet 00:00: mouth [place] 00 daily. [facility] clopidogrel 2019-0 Yes [id number] 75mg Take 1 [facility] 75 mg 4-04 07 tablet by ity of tablet 00:00: mouth [place] 00 daily. [facility] clopidogrel 2019-0 Yes [id number] 75mg Take 1 [facility] 75 mg 4-04 07 tablet by ity of tablet 00:00: mouth [place] 00 daily. [facility] clopidogrel 2019-0 Yes [id number] 75mg Take 1 [facility] 75 mg 4-04 07 tablet by ity of tablet 00:00: mouth [place] 00 daily. [facility] clopidogrel 2019-0 Yes [id number] 75mg Take 1 [facility] 75 mg 4-04 07 tablet by ity of tablet 00:00: mouth [place] 00 daily. [facility] clopidogrel 2019-0 Yes [id number] 75mg Take 1 [facility] 75 mg 4-04 tablet by ity of tablet 00:00: mouth [place] 00 daily. [facility] clopidogrel 2019-0 Yes [id number] 75mg Take 1 [facility] 75 mg 4-04 07 tablet by ity of tablet 00:00: mouth [place] 00 daily. [facility] clopidogrel 2019-0 Yes [id number] 75mg Take 1 [facility] 75 mg 4-04 07 tablet by ity of tablet 00:00: mouth [place] 00 daily. [facility] 200 ACTUAT 2017- Yes 1 puff, Ludwin brannon Albuterol 6-16 INHALER, l 0.09 19:00: QID, PRN [place] MG/ACTUAT 00 for Metered wheezing, Dose # 25 gm, 0 Inhaler Refill(s), [Proventil] Pharmacy: [place] [id number] pantoprazol Yes 40 mg = 1 M emoria e 40 MG 6-16 tab, PO, l Enteric 19:00: Daily, # Donnie n Coated 00 30 tab, 0 Tablet Refill(s), [Protonix] Pharmacy: [place] [id number] 200 ACTUAT Yes 1 puff, Ludwin brannon Albuterol 6-16 INHALER, l 0.09 19:00: QID, PRN [place] MG/ACTUAT 00 for Metered wheezing, Dose # 25 gm, 0 Inhaler Refill(s), [Proventil] Pharmacy: [place] [id number] pantoprazol Yes 40 mg = 1 M emoria e 40 MG 6-16 tab, PO, l Enteric 19:00: Daily, # Donnie n Co[place] 00 30 tab, 0 Tablet Refill(s), [Protonix] Pharmacy: [place] [id number] Tylenol No Notes: Do Memor ia 6-16 not exceed l 03:35: 4 gm/day. [place] 00 (Same as: Tylenol) Acetaminoph No Notes: Ludwin brannon en 325 MG / 6-16 (Same as: l Hydrocodone 03:35: [place] Tamanna nn Bitartrate 00 325/5) Do 5 MG Oral not exceed Tablet 4gm/day of [[place] acetaminop 5/325] hen. Tylenol No Notes: Do Memor ia 6-16 not exceed l 03:35: 4 gm/day. [place] 00 (Same as: Tylenol) Acetaminoph No Notes: Ludwin brannon en 325 MG / 6-16 (Same as: l Hydrocodone 03:35: [place] Tamanna nn Bitartrate 00 325/5) Do 5 MG Oral not exceed Tablet 4gm/day of [[place] acetaminop 5/325] hen. phenol 14 No Notes: Memori a MG/ML 6-15 Chlorasept l Mucosal 18:54: ic [place] Donnie n [place]ater[place] 00 (Same as: Chlorasept ic, Sore Throat Pateros) WASTE: F/P - Black; E - [facility] Trash Bin phenol 14 No Notes: Memori a MG/ML 6-15 Chlorasept l Mucosal 18:54: ic [place] Donnie n [place] 00 (Same as: Chlorasept ic, Sore Throat Pateros) WASTE: F/P - Black; E - [facility] Trash Bin Insulin No Notes: Memoria Lispro 6-15 (Same as: l 16:30: Humalog ) [place] Roll in palms of hands gently; Do not shake `vigorousl y. "Single Patient Use Only " WASTE: F/P - Black; E - [facility] Trash Bin Stable for 28 days at room temperatur e. Expires in days from ____Date Insulin No Notes: [facility] Lispro 6-15 (Same as: l 16:30: Humalog ) Roll in palms of hands gently; Do not shake `vigorousl y. "Single Patient Use Only " WASTE: F/P - Black; E - [facility] Trash Bin Stable for 28 days at room temperatur e. Expires in days from ____Date Insulin No Notes: Memoria Glargine 6-15 (Same as: l 15:30: Lantus) Do not hold insulin without contacting prescriber WASTE: F/P - Black; E - [facility] Trash Bin "single patient use only" Insulin No Notes: Memoria Glargine 6-15 (Same as: l 15:30: Lantus) Do not hold insulin without contacting prescriber WASTE: F/P - Black; E - [facility] Trash Bin "single patient use only" insulin, Yes 5 unit, Memori a isophane 6-15 SUB-Q, QPM l 14:12: [place] 00 Regular Yes See Memoria Insulin, 6-15 Instructio l Human 100 14:12: ns, [place] UNT/ML 00 Sliding Injectable scale Solution before meals based on BG result Non-Formula Yes PO, Daily, Memoria ry Home 6-15 Blood l Medication 14:12: pressure Her saravia 00 medication - pt unsure of name of medication and dose insulin, Yes 5 unit, Memori a isophane 6-15 SUB-Q, QPM l 14:12: [place] 00 Regular Yes See Memoria Insulin, 6-15 Instructio l Human 100 14:12: ns, [place] UNT/ML 00 Sliding Injectable scale Solution before meals based on BG result Non-Formula Yes PO, Daily, Memoria ry Home 6-15 Blood l Medication 14:12: pressure Her saravia medication - pt unsure of name of medication and dose Insulin 2018-0 No Notes: Memoria Lispro 6-15 (Same as: l 14:11: Humalog ) [place] 00 Roll in palms of hands gently; Do not shake `vigorousl y. "Single Patient Use Only " WASTE: F/P - Black; E - [facility] Trash Bin Stable for 28 days at room temperatur e. Expires in days from ____Date Glucagon 2018-0 No 1 mg, Memoria 6-15 Route: IM, l 14:11: Drug form: [place] 00 PDR/INJ, PRN, Dosing Weight 43.6, kg, PRN Blood Glucose Results, Start date: 01/07/18 9:11:00 CDT, Duration: 30 day, Stop date: 02/06/18 9:10:00 CDT Dextrose 2018-0 No 25 gm, 50 Ludwin brannon 50% Syringe 6-15 mL, Route: l 14:11: IVP, Drug [place] 00 Form: INJ, Dosing Weight 43.6, kg, PRN, PRN Blood Glucose Results, Start date: 01/07/18 9:11:00 CDT, Duration: 30 day, Stop date: 02/06/18 9:10:00 CDT Insulin 2018-0 No Notes: Memoria Lispro 6-15 (Same as: l 14:11: Humalog ) [place] 00 Roll in palms of hands gently; Do not shake `vigorousl y. "Single Patient Use Only " WASTE: F/P - Black; E - [facility] Trash Bin Stable for 28 days at room temperatur e. Expires in days from ____Date Glucagon 2018-0 No 1 mg, Memoria 6-15 Route: IM, l 14:11: Drug form: [place] 00 PDR/INJ, PRN, Dosing Weight 43.6, kg, PRN Blood Glucose Results, Start date: 01/07/18 9:11:00 CDT, Duration: 30 day, Stop date: 02/06/18 9:10:00 CDT Dextrose 2018-0 No 25 gm, 50 Ludwin brannon 50% Syringe 6-15 mL, Route: l 14:11: IVP, Drug [place] 00 Form: INJ, Dosing Weight 43.6, kg, PRN, PRN Blood Glucose Results, Start date: 01/07/18 9:11:00 CDT, Duration: 30 day, Stop date: 02/06/18 9:10:00 CDT heparin No Notes: Memoria 6-15 porcine l 14:00: heparin [place] Mupirocin No 1 appl, Memor ia 0.02 MG/MG 6-15 Route: l Topical 14:00: NASAL, [place] Ointment 00 Q12H, Drug form: OINT, Start date: 01/07/18 9:00:00 CDT, Duration: 5 day, Stop date: 01/11/18 21:00:00 CDT heparin No Notes: Memoria 6-15 porcine l 14:00: heparin [place] Mupirocin No 1 appl, Memor ia 0.02 MG/MG 6-15 Route: l Topical 14:00: NASAL, [place] Ointment 00 Q12H, Drug form: OINT, Start date: 01/07/18 9:00:00 CDT, Duration: 5 day, Stop date: 01/11/18 21:00:00 CDT pneumococca 2017- No Notes: Ludwin brannon l capsular 6-15 (Same as: l polysacchar 09:31: Pneumovax H ermann magdy type 1 58 23) vaccine / Refrigerat pneumococca e l capsular polysacchar magdy type 10A vaccine / pneumococca l capsular polysacchar magdy type 11A vaccine / pneumococca l capsular polysacchar magdy type 12F vaccine / pneumococca l capsular polysacchar pneumococca No Notes: Ludwin brannon l capsular 6-15 (Same as: l polysacchar 09:31: Pneumovax H ermann magdy type 1 58 23) vaccine / Refrigerat pneumococca e l capsular polysacchar magdy type 10A vaccine / pneumococca l capsular polysacchar magdy type 11A vaccine / pneumococca l capsular polysacchar magdy type 12F vaccine / pneumococca l capsular polysacchar Carafate 2017- No Notes: November Mem oria 6-15 interfere l 09:30: w/enteral [place] 00 feeds - Take 1 hr before or 2 hr after antacids, dairy pdt, meals & minerals - On empty stomach. For patients unable to swallow tablet, dissolve in 10mL - 30mL of water or juice and stir before giving. (Same As: Carafate) Protonix No Notes: For Mem oria 6-15 IV push l 09:30: reconstitu [place] 00 te with 10 ml 0.9% sodium chloride and push over 2 minutes. (Same as: Protonix) Carafate No Notes: May Mem oria 6-15 interfere l 09:30: w/enteral [place] 00 feeds - Take 1 hr before or 2 hr after antacids, dairy pdt, meals & minerals - On empty stomach. For patients unable to swallow tablet, dissolve in 10mL - 30mL of water or juice and stir before giving. (Same As: Carafate) Protonix No Notes: For Mem oria 6-15 IV push l 09:30: reconstitu [place] 00 te with 10 ml 0.9% sodium chloride and push over 2 minutes. (Same as: Protonix) Albuterol No Notes: Memori a 0.833 MG/ML 6-15 (Same as: 08:24: Duoneb) [place] Ipratropium 00 [place] 0.167 MG/ML Inhalant Solution [DuoNeb] Albuterol No Notes: Memori a 0.833 MG/ML 6-15 (Same as: l 08:24: Duoneb) [place] Ipratropium 00 [place] 0.167 MG/ML Inhalant Solution [DuoNeb] potassium No Notes: Memori a phosphate 6-15 (Same as: l 08:17: K Phosphate. ) 1 mMol phoshate has 1.47 mEq potassium Infuse over 4 hours Magnesium 2017- No Notes: Memori a Sulfate 6-15 WASTE: F/P l 08:17: - Sink; E - [facility] Trash Bin Potassium 2017- No Notes: Memori a Chloride 6-15 MUST be l 08:17: Diluted before use (Same as: KCl) MEDICATION WASTE Product Size: 40 mEq Product Wasted: 20 mEq Dextrose No 25 gm, 50 Lud[place] brannon 50% Syringe 6-15 mL, Route: l 08:17: IVP, Drug Form: INJ, Dosing Weight 43.6, kg, PRN, PRN Blood Glucose Results, Start date: 01/07/18 3:17:00 CDT, Duration: 30 day, Stop date: 02/06/18 3:16:00 CDT Glucagon No 1 mg, Memoria 6-15 Route: IM, l 08:17: Drug form: [place] 00 PDR/INJ, PRN, Dosing Weight 43.6, kg, PRN Blood Glucose Results, Start date: 01/07/18 3:17:00 CDT, Duration: 30 day, Stop date: 02/06/18 3:16:00 CDT Insulin No Notes: Memoria (regular) 6-15 (Same as: l Titrate IV 08:17: Humulin R He rmann additive 00 and 100 unit + NovoLIN R) Sodium WASTE: F/P Chloride - Black; E 0.9% - (titrate) Municipal 99 mL Trash Bin (Do not shake) D5NS 1,000 2018 No 1,000 mL, Me moria mL 6-15 Rate: 250 l 08:17: ml/hr, [place] 00 Infuse over: 4 hr, Route: IV, Dosing Weight 43.6 kg, Total Volume: 1,000, Start date: 01/07/18 3:17:00 CDT, Duration: 30 day, Stop date: 02/06/18 3:16:00 CDT, 1.43, m2 Sodium 2018- No 1,000 mL, Memori a Chloride 6-15 Rate: 250 l 0.9% IV 08:17: ml/hr, [place] 1,000 mL 00 Infuse over: 4 hr, Route: IV, Dosing Weight 43.6 kg, Total Volume: 1,000, When Finger stick blood glucose values remain ABOVE 250 mg/dL administer until BG is less than 250 mg/dL., Start date: 01/07/18 3:17:00 CDT, Duration:. .. potassium No Notes: Memori a phosphate 6-15 (Same as: l 08:17: K [place] 00 Phosphate. ) 1 mMol phoshate has 1.47 mEq potassium Infuse over 4 hours Magnesium No Notes: Memori a Sulfate 6-15 WASTE: F/P l 08:17: - Sink; E [place] 00 - Municipal Trash Bin Potassium 2018-0 No Notes: Memori a Chloride 6-15 MUST be l 08:17: Diluted [place] 00 before use (Same as: KCl) MEDICATION WASTE Product Size: 40 mEq Product Wasted: 20 mEq Dextrose 2018-0 No 25 gm, 50 Ludwin brannon 50% Syringe 6-15 mL, Route: l 08:17: IVP, Drug Form: INJ, Dosing Weight 43.6, kg, PRN, PRN Blood Glucose Results, Start date: 01/07/18 3:17:00 CDT, Duration: 30 day, Stop date: 02/06/18 3:16:00 CDT Glucagon 2018 No 1 mg, Memoria 6-15 Route: IM, l 08:17: Drug form: PDR/INJ, PRN, Dosing Weight 43.6, kg, PRN Blood Glucose Results, Start date: 01/07/18 3:17:00 CDT, Duration: 30 day, Stop date: 02/06/18 3:16:00 CDT Insulin 2017-0 No Notes: Memoria (regular) 6-15 (Same as: l Titrate IV 08:17: Humulin R He rmann additive 00 and 100 unit + NovoLIN R) Sodium WASTE: F/P Chloride - Black; E 0.9% - (titrate) Municipal 99 mL Trash Bin (Do not shake) D5NS 1,000 2018-0 No 1,000 mL, Me moria mL 6-15 Rate: 250 l 08:17: ml/hr, [place] 00 Infuse over: 4 hr, Route: IV, Dosing Weight 43.6 kg, Total Volume: 1,000, Start date: 01/07/18 3:17:00 CDT, Duration: 30 day, Stop date: 02/06/18 3:16:00 CDT, 1.43, m2 Sodium 2018-0 No 1,000 mL, Memori a Chloride 6-15 Rate: 250 l 0.9% IV 08:17: ml/hr, [place] 1,000 mL 00 Infuse over: 4 hr, Route: IV, Dosing Weight 43.6 kg, Total Volume: 1,000, When Finger stick blood glucose values remain ABOVE 250 mg/dL administer until BG is less than 250 mg/dL., Start date: 01/07/18 3:17:00 CDT, Duration:. .. Magnesium No Notes: Memori a Sulfate 6-15 WASTE: F/P l 05:10: - Sink; E [place] 00 - [facility] Trash Bin Potassium No [...] phosphate 6-15 (Same as: l 05:10: K [place] 00 Phosphate. ) 1 mMol phoshate has 1.47 mEq potassium Infuse over 4 hours D5NS 1,000 No 1,000 mL, Me moria mL 6-15 Rate: 250 l 05:10: ml/hr, [place] 00 Infuse over: 4 hr, Route: IV, Dosing Weight 50 kg, Total Volume: 1,000, Start date: 01/07/18 0:10:00 CDT, Duration: 30 day, Stop date: 02/06/18 0:09:00 CDT, 1.56, m2 Sodium No 1,000 mL, Memori a Chloride 6-15 1000 l 0.9% 05:10: ml/hr, [place] (Bolus) IV 00 Infuse Over: 1 hr, Route: IV, 1,000, Drug form: INJ, ONCE, Priority: STAT, Dosing Weight 50 kg, Start date: 01/07/18 0:10:00 CDT, Stop date: 01/07/18 0:10:00 CDT Magnesium No Notes: Memori a Sulfate 6-15 WASTE: F/P l 05:10: - Sink; E [place] 00 - Municipal Trash Bin Potassium No Notes: Memori a Chloride 6-15 (Same as: l 05:10: KCL) [place] 00 Infuse no faster than 10 mEq/hr [...] phosphate 6-15 (Same as: l 05:10: K [place] 00 Phosphate. ) 1 mMol phoshate has 1.47 mEq potassium Infuse over 4 hours D5NS 1,000 No 1,000 mL, Me moria mL 6-15 Rate: 250 l 05:10: ml/hr, [place] 00 Infuse over: 4 hr, Route: IV, Dosing Weight 50 kg, Total Volume: 1,000, Start date: 01/07/18 0:10:00 CDT, Duration: 30 day, Stop date: 02/06/18 0:09:00 CDT, 1.56, m2 Sodium No 1,000 mL, Memori a Chloride 6-15 1000 l 0.9% 05:10: ml/hr, [place] (Bolus) IV 00 Infuse Over: 1 hr, Route: IV, 1,000, Drug form: INJ, ONCE, Priority: STAT, Dosing Weight 50 kg, Start date: 01/07/18 0:10:00 CDT, Stop date: 01/07/18 0:10:00 CDT Calcium No 1,500 mL, Memor ia Chloride 6-15 2,000 l 0.0014 04:45: ml/hr, [place] MEQ/ML / 00 Route: IV, Potassium ONCE, Chloride Priority: 0.004 STAT, MEQ/ML / Dosing Sodium Weight 50 Chloride kg, Start 0.103 date: MEQ/ML / 01/06/18 Sodium 23:45:00 Lactate CDT, Stop 0.028 date: MEQ/ML 01/06/18 Injectable 23:45:00 Solution CDT Saline No Notes: Memoria Flush 0.9% 6-15 (Same as: l 04:45: BD [place] 00 Posiflush) Calcium No 1,500 mL, Memor ia Chloride 6-15 2,000 l 0.0014 04:45: ml/hr, [place] MEQ/ML / 00 Route: IV, Potassium ONCE, Chloride Priority: 0.004 STAT, MEQ/ML / Dosing Sodium Weight 50 Chloride kg, Start 0.103 date: MEQ/ML / 01/06/18 Sodium 23:45:00 Lactate CDT, Stop 0.028 date: MEQ/ML 01/06/18 Injectable 23:45:00 Solution CDT Saline No Notes: Memoria Flush 0.9% 6-15 (Same as: l 04:45: BD [place] Posiflush) Glucagon No 1 mg, Memoria 6-15 Route: IM, l 03:58: Drug form: [place] PDR/INJ, PRN, kg, PRN Blood Glucose Results, Start date: 01/06/18 22:58:00 CDT, Duration: 30 day, Stop date: 02/05/18 22:57:00 CDT Ondansetron No Notes: Ludwin brannon 6-15 (Same as: l 03:58: Zofran) [place] 00 MEDICATION WASTE Product Size: 4 mg Product Wasted: ___ mg Dextrose No 25 gm, 50 Ludwin brannon 50% Syringe 6-15 mL, Route: l 03:58: IVP, Drug [place] 00 Form: INJ, kg, PRN, PRN Blood Glucose Results, Start date: 01/06/18 22:58:00 CDT, Duration: 30 day, Stop date: 02/05/18 22:57:00 CDT Saline No Notes: Memoria Flush 0.9% 6-15 (Same as: l 03:58: BD [place] 00 Posiflush) Sodium 0 No 1,000 mL, Memori a Chloride 6-15 1000 l 0.9% 03:58: ml/hr, [place] (Bolus) IV 00 Infuse Over: 1 hr, Route: IV, 1,000, Drug form: INJ, ONCE, Priority: STAT, kg, Start date: 01/06/18 22:58:00 CDT, Stop date: 01/06/18 22:58:00 CDT Glucagon No 1 mg, Memoria 6-15 Route: IM, l 03:58: Drug form: [place] 00 PDR/INJ, PRN, kg, PRN Blood Glucose Results, Start date: 01/06/18 22:58:00 CDT, Duration: 30 day, Stop date: 02/05/18 22:57:00 CDT Ondansetron No Notes: Ludwin brannon 6-15 (Same as: l 03:58: Zofran) MEDICATION WASTE Product Size: 4 mg Product Wasted: ___ mg Dextrose No 25 gm, 50 Ludwin brannon 50% Syringe 6-15 mL, Route: l 03:58: IVP, Drug Form: INJ, kg, PRN, PRN Blood Glucose Results, Start date: 01/06/18 22:58:00 CDT, Duration: 30 day, Stop date: 02/05/18 22:57:00 CDT Saline No Notes: Memoria Flush 0.9% 6-15 (Same as: l 03:58: BD Posiflush) Sodium No 1,000 mL, Memori a Chloride 6-15 1000 l 0.9% 03:58: ml/hr, [place] (Bolus) IV 00 Infuse Over: 1 hr, Route: IV, 1,000, Drug form: INJ, ONCE, Priority: STAT, kg, Start date: 01/06/18 22:58:00 CDT, Stop date: 01/06/18 22:58:00 CDT insulin Yes 3U Inject [address] [facility] regular 6-15 Units [facility] (HUMULIN 00:00: subcutaneo Med ical R,NOVOLIN 00 usly 2 Center R) 100 (two) unit/mL times injection daily as needed. insulin Yes 3U Inject [address] [facility] regular 6-15 Units [facility] (HUMULIN 00:00: subcutaneo Med ical R,NOVOLIN 00 usly 2 Center R) 100 (two) unit/mL times injection daily as needed. insulin 2016-07 Yes [id number] 5U inject 5 Un dg aspart 1-02 Units ity of (NOVOLOG 00:[place]: [place] FLEXP[place] 00 skin 3 Medical 100 unit/mL (three) Branc h injection times daily before meals. + sliding scale as mentioned upto 8 units with meals insulin 2016-07 Yes [id number] 5U inject 5 Un dg aspart 1-02 Units ity of (NOVOLOG 00:00: [place] FLEXPEN[place] 00 skin 3 Medical 100 unit/mL (three) Branc h injection times daily before meals. + sliding scale as mentioned upto 8 units with meals insulin 2016-07 Yes [id number] 5U inject 5 Un dg aspart 1-02 Units ity of (NOVOLOG 00:00: [place] FLEXPEN[place] 00 skin 3 Medical 100 unit/mL (three) Branc h injection times daily before meals. + sliding scale as mentioned upto 8 units with meals insulin 2016-07 Yes [id number] 5U inject 5 Un dg aspart 1-02 Units ity of (NOVOLOG 00:[place]: [place] FLE[place] 00 skin 3 Medical 100 unit/mL (three) Branc h injection times daily before meals. + sliding scale as mentioned upto 8 units with meals insulin 2016-07 Yes [id number] 5U inject 5 Un dg aspart 1-02 Units ity of (NOVOLOG [place]LE[place] 00 skin 3 Medical 100 unit/mL (three) Branc h injection times daily before meals. + sliding scale as mentioned upto 8 units with meals insulin 2016-07 2020- No [id number] 5U inject 5 U nivers aspart 1-02 [...] minutes as needed for Chest pain. nitroglycer 2016-[address] 1 Uni vers in [...] Immunizations Ordered Filled Immunization Date Status Comments [facility] e Immunization Name Name Influenza Virus 2017-08-30 Completed [facility] Influenza Virus 2017-08-30 Completed [facility] [facility] Influenza Virus 2017-08-30 Completed [facility] Vaccine 00:00:00 [facility] Influenza Virus 2017-08-30 Completed [facility] Vaccine 00:00:00 [facility] Influenza Virus 2017-08-30 Completed [facility] Vaccine 00:00:00 [facility] Influenza Virus 2017-08-30 Completed [facility] of Vaccine 00:00:00 [facility] Influenza Virus 2017-08-30 Completed [facility]it [facility] of Vaccine 00:00:00 [facility] Influenza Virus 2017-08-30 Completed [facility]it [facility] of Vaccine 00:00:00 [facility] Influenza Virus 2017-08-30 Completed [facility] of Vaccine 00:00:00 [facility] Influenza Virus 2017-08-30 Completed [facility] of Vaccine 00:00:00 [facility] Influenza Virus 2017-08-30 Completed [facility]it [facility] of Vaccine 00:00:00 [facility] Vital Signs Vital Name Observation Time Observation Value Comments Source HEIGHT 2019-12-03 00:00:00 167.6 cm WEIGHT 2019-12-03 00:00:00 50.485 kg HEIGHT 2019-12-03 00:00:00 167.6 cm WEIGHT 2019-12-03 00:00:00 50.485 kg Systolic blood 2019-09-13 21:59:00 141 mm[Hg] Univer sity of pressure [facility] Diastolic blood 2019-09-13 21:59:00 72 mm[Hg] Unive rsity of [facility] Heart rate 2019-09-13 21:59:00 92 /min Universi ty [facility] Body temperature 2019-09-13 21:59:00 [facility].67 [facility] Respiratory rate 2019-09-13 21:59:00 20 /min [facility] Oxygen saturation in 2019-09-13 21:59:00 98 /min [facility] P[facility]xim[facility] [place] Body height 2019-09-10 14:30:00 172.7 cm Universi ty [facility] Body weight 2019-09-10 14:30:00 51 kg Universi ty [facility] BMI 2019-09-10 14:30:00 17.10 kg/m2 Universi ty [facility] Systolic blood 2019-08-17 12:00:00 156 mm[Hg] Univer sity of pressure [facility] Diastolic blood 2019-08-17 12:00:00 82 mm[Hg] Unive rsity of pressure [facility] Heart rate 2019-08-17 12:00:00 91 /min [facility] Respiratory rate 2019-08-17 12:00:00 15 /min [facility] Oxygen saturation in 2019-08-17 12:00:00 97 /min [facility] Pulse oximetry [facility] Body height 2019-08-17 10:18:00 167.6 cm [facility] Body weight 2019-08-17 10:18:00 49.896 kg [facility] BMI 2019-08-17 10:18:00 17.75 kg/m2 [facility] Heart Rate 2018-01-08 17:05:00 [facility] Temperature Oral (F) 2018-01-08 17:05:00 98.1 F [facility] Systolic (mm Hg) 2018-01-08 17:05:00 [place] [facility] [place] Diastolic (mm Hg) 2018-01-08 17:05:00 [facility] Respitory Rate 2018-01-08 17:05:00 [facility] Temperature Oral (F) 2018-01-08 13:08:00 98.4 F [facility] Heart Rate 2018-01-08 13:08:00 [facility] Respitory Rate 2018-01-08 13:08:00 [facility] [place] Systolic (mm Hg) 2018-01-08 13:08:00 [place] [facility] [place] Diastolic (mm Hg) 2018-01-08 13:08:00 [facility] Respitory Rate 2018-01-08 12:58:00 [facility] [place] Systolic (mm Hg) 2018-01-08 08:13:00 [facility] Diastolic (mm Hg) 2018-01-08 08:13:00 [facility] [place] Heart Rate 2018-01-08 08:13:00 [facility] Temperature Oral (F) 2018-01-08 08:13:00 98 F [facility] Height 2018-01-07 08:14:00 167.64 cm [facility] BMI Calculated 2018-01-07 08:14:00 [facility] Weight 2018-01-07 08:14:00 [facility] Systolic (mm Hg) 2018-01-07 07:21:00 [place] [facility] [place] Diastolic (mm Hg) 2018-01-07 07:21:00 [facility] Respitory Rate 2018-01-07 07:21:00 [facility] [place] Heart Rate 2018-01-07 07:21:00 [facility] Temperature Oral (F) 2018-01-07 07:21:00 97.6 F [facility] Heart Rate 2018-01-07 06:30:00 [facility] Systolic (mm Hg) 2018-01-07 06:30:00 [facility] Diastolic (mm Hg) 2018-01-07 06:30:00 [facility] Respitory Rate 2018-01-07 06:30:00 [facility] [place] Temperature Oral (F) 2018-01-07 06:30:00 98.3 F [facility] Heart Rate 2018-01-07 05:24:00 [facility] Respitory Rate 2018-01-07 05:24:00 [facility] Systolic (mm Hg) 2018-01-07 05:24:00 [place] [facility] [place] Diastolic (mm Hg) 2018-01-07 05:24:00 [facility] [place] Height 2018-01-07 04:00:00 175.26 cm [facility] BMI Calculated 2018-01-07 04:00:00 [facility] [place] Weight 2018-01-07 04:00:00 [facility] Temperature Oral (F) 2018-01-07 04:00:00 98.9 F [facility] Procedures Procedure Date / Time Performing Clinician Source Performed AUTHORIZATION FOR RELEASE 2021-02-06 05:01:00 Doctor Unassigned, [facility] Name Medical Branch AUTHORIZATION FOR RELEASE 2019-10-03 05:01:00 Doctor Unassigned, [facility] Name Medical Branch POCT GLUCOSE (AUTOMATED) 2019-09-13 19:18:00 Aislinn Hathaway [facility] POCT GLUCOSE (AUTOMATED) 2019-09-13 15:26:00 Aislinn Hathaway [facility] BASIC METABOLIC PANEL 2019-09-13 10:19:00 Lorenzo Chavez [facility] (NA, K, CL, CO2, GLUCOSE, [place] [facility]ica [facility] BUN, CREATININE, CA) POCT GLUCOSE (AUTOMATED) 2019-09-13 09:51:00 Aislinn Hathaway [facility] POCT GLUCOSE (AUTOMATED) 2019-09-13 06:03:00 Aislinn Hathaway [facility] POCT GLUCOSE (AUTOMATED) 2019-09-13 03:30:00 HathawayAislinn shay [facility] POCT GLUCOSE (AUTOMATED) 2019-09-12 23:20:00 Trevor Lockhart [facility] POCT GLUCOSE (AUTOMATED) 2019-09-12 23:02:00 Trevor Lockhart [facility] POCT GLUCOSE (AUTOMATED) 2019-09-12 17:17:00 Trevor Lockhart [facility] POCT GLUCOSE (AUTOMATED) 2019-09-12 13:36:00 Trevor Lockhart [facility] BASIC METABOLIC PANEL 2019-09-12 11:16:00 Florin Zamudio [facility] (NA, K, CL, CO2, GLUCOSE, Sergei Delacruz Medica [facility] BUN, CREATININE, CA) POCT GLUCOSE (AUTOMATED) 2019-09-12 10:19:00 Trevor Lockhart [facility] POCT GLUCOSE (AUTOMATED) 2019-09-12 08:48:00 Trevor Lockhart [facility] BASIC METABOLIC PANEL 2019-09-12 05:49:00 Travis Morel [facility] (NA, K, CL, CO2, GLUCOSE, Medica l Branch BUN, CREATININE, CA) POCT GLUCOSE (AUTOMATED) 2019-09-12 05:34:00 Trevor Lockhart [facility] POCT GLUCOSE (AUTOMATED) 2019-09-12 02:37:00 Trevor Lockhart [facility] POCT GLUCOSE (AUTOMATED) 2019-09-11 23:38:00 Trevor Lockhart [facility] POCT GLUCOSE (AUTOMATED) 2019-09-11 21:34:00 Trevor Lockhart [facility] POCT GLUCOSE (AUTOMATED) 2019-09-11 18:20:00 Trevor Lockhart [facility] POCT GLUCOSE (AUTOMATED) 2019-09-11 17:11:00 Trevor Lockhart [facility] ECHO ROUTINE W/DOPPLER 2019-09-11 17:08:12 Brant [facility] COLOR [facility] BASIC METABOLIC PANEL 2019-09-11 16:05:00 [facility]l [facility] [place] (NA, K, CL, CO2, GLUCOSE, Medica l Branch BUN, CREATININE, CA) POCT GLUCOSE (AUTOMATED) 2019-09-11 16:02:00 Trevor Lockhart [facility] POCT GLUCOSE (AUTOMATED) 2019-09-11 15:22:00 Trevro Lockhart [facility] CBC WITH DIFFERENTIAL 2019-09-11 14:06:00 Brant [facility] POCT GLUCOSE (AUTOMATED) 2019-09-11 14:05:00 Trevor Lockhart [facility] POCT GLUCOSE (AUTOMATED) 2019-09-11 13:15:00 Trevor Lockhart [facility] BASIC METABOLIC PANEL 2019-09-11 12:07:00 Travis Morel [facility] [place] (NA, K, CL, CO2, GLUCOSE, Medica l Branch BUN, CREATININE, CA) POCT GLUCOSE (AUTOMATED) 2019-09-11 12:07:00 Trevor Lockhart [facility] POCT GLUCOSE (AUTOMATED) 2019-09-11 11:06:00 Trevor Lockhart [facility] POCT GLUCOSE (AUTOMATED) 2019-09-11 10:09:00 Trevor Lockhart [facility] POCT GLUCOSE (AUTOMATED) 2019-09-11 08:57:00 Trevor Lockhart [facility] BASIC METABOLIC PANEL 2019-09-11 08:06:00 SylvesterricalTravis [facility] [place] (NA, K, CL, CO2, GLUCOSE, Medica l Branch BUN, CREATININE, CA) POCT GLUCOSE (AUTOMATED) 2019-09-11 08:02:00 Trevor Lockhart [facility] POCT GLUCOSE (AUTOMATED) 2019-09-11 07:04:00 Trevor Lockhart [facility] POCT GLUCOSE (AUTOMATED) 2019-09-11 06:11:00 Trevor Lockhart [facility] POCT GLUCOSE (AUTOMATED) 2019-09-11 05:02:00 Trevor Lockhart [facility] BASIC METABOLIC PANEL 2019-09-11 04:06:00 Travis Morel [facility] [place] (NA, K, CL, CO2, GLUCOSE, Medica l Branch BUN, CREATININE, CA) POCT GLUCOSE (AUTOMATED) 2019-09-11 04:01:00 Trevor Lockhart [facility] POCT GLUCOSE (AUTOMATED) 2019-09-11 03:06:00 Trevor Lockhart [facility] POCT GLUCOSE (AUTOMATED) 2019-09-11 02:49:00 Trevor Lockhart [facility] POCT GLUCOSE (AUTOMATED) 2019-09-11 02:23:00 Trevor Lockhart [facility] POCT GLUCOSE (AUTOMATED) 2019-09-11 02:00:00 Trevor Lockhart [facility] BASIC METABOLIC PANEL 2019-09-11 00:01:00 Travis Morel [facility] [place] (NA, K, CL, CO2, GLUCOSE, Medica l Branch BUN, CREATININE, CA) ACTIVATED PARTIAL 2019-09-11 00:[facility] 2019-09-10 23:50:00 Trevor Lockhart [facility] POCT GLUCOSE (AUTOMATED) 2019-09-10 22:38:00 Trevor Lockhart [facility] SPUTUM CULTURE 2019-09-10 21:37:00 [facility] PANEL 21 + LACTIC ACID 2019-09-10 21:03:00 Evens Guo iversity [facility] TROPONIN I 2019-09-10 21:02:00 [facility] BASIC METABOLIC PANEL 2019-09-10 21:02:00 Travis Morel [facility] [place] (NA, K, CL, CO2, GLUCOSE, Medica l Branch BUN, CREATININE, CA) POCT GLUCOSE (AUTOMATED) 2019-09-10 20:56:00 Trevor Lockhart [facility] PROTHROMBIN TIME / INR 2019-09-10 17:33:00 [facility] 2019-09-10 17:33:00 [facility] MRSA / MSSA SCREEN BY 2019-09-10 17:29:00 Brant [facility], [facility]OPON[facility] 2019-09-10 17:28:00 [facility] BASIC METABOLIC PANEL 2019-09-10 17:28:00 Tarvis Morel [facility] (NA, K, CL, CO2, GLUCOSE, Medica l Branch BUN, CREATININE, CA) POCT GLUCOSE (AUTOMATED) 2019-09-10 13:57:00 Trevor Lockhart [facility] ABG+COOX+NA+K+GLU+CA2+ 2019-09-10 13:48:00 Yvetteipal Maria Teresa, [facility] TROPONIN I 2019-09-10 12:42:00 Kati Gross [facility] BASIC METABOLIC PANEL 2019-09-10 12:42:00 Travis Morel [facility] (NA, K, CL, CO2, GLUCOSE, Medica l Branch BUN, CREATININE, CA) POCT GLUCOSE (AUTOMATED) 2019-09-10 12:23:00 Trevor Lockhart [facility] POCT GLUCOSE(AGE >30DAYS) 2019-09-10 12:15:00 Travis Morel [facility] POCT GLUCOSE(AGE >30DAYS) 2019-09-10 10:15:00 Travis Morel [facility] BASIC METABOLIC PANEL 2019-09-10 10:14:00 Travis Morel [facility] (NA, K, CL, CO2, GLUCOSE, Medica l Branch BUN, CREATININE, CA) POCT GLUCOSE (AUTOMATED) 2019-09-10 10:11:00 Trevor Lockhart [facility] POCT GLUCOSE (AUTOMATED) 2019-09-10 10:08:00 Trevor Lockhart [facility] POCT GLUCOSE (AUTOMATED) 2019-09-10 08:45:00 Trevor Lockhart [facility] POCT GLUCOSE (AUTOMATED) 2019-09-10 07:44:00 Trevor Lockhart [facility] POCT GLUCOSE(AGE >30DAYS) 2019-09-10 07:40:00 Travis Morel [facility] BASIC METABOLIC PANEL 2019-09-10 07:12:00 Travis Morel iversity [facility] (NA, K, CL, CO2, GLUCOSE, Medica l Branch BUN, CREATININE, CA) POCT GLUCOSE (AUTOMATED) 2019-09-10 06:41:00 Trevor Lockhart [facility] POCT GLUCOSE(AGE >30DAYS) 2019-09-10 06:40:00 Travis Morel [facility] POCT GLUCOSE (AUTOMATED) 2019-09-10 05:35:00 Trevor Lockhart [facility] POCT GLUCOSE (AUTOMATED) 2019-09-10 04:33:00 Trevor Lockhart [facility] POCT GLUCOSE(AGE >30DAYS) 2019-09-10 04:30:00 Travis Morel [facility] BASIC METABOLIC PANEL 2019-09-10 04:09:00 Travis Morel iversity [facility] (NA, K, CL, CO2, GLUCOSE, Medica l Branch BUN, CREATININE, CA) POCT GLUCOSE (AUTOMATED) 2019-09-10 03:02:00 Trevor Lockhart [facility] POCT GLUCOSE(AGE >30DAYS) 2019-09-10 03:00:00 Travis Morel [facility] ABG+COOX+NA+K+GLU+CA2+ 2019-09-10 01:48:00 [facility] (AUTOMATED) 2019-09-10 00:32:00 Travis Morel [facility] BASIC METABOLIC PANEL 2019-09-10 00:30:00 Travis Morel [facility] [place] (NA, K, CL, CO2, GLUCOSE, Medica l Branch BUN, CREATININE, CA) XR KUB 2019-09-10 00:29:15 Travis Morel [facility] LACTIC ACID WHOLE BLOOD 2019-09-09 23:30:00 Travis Morel [facility] TROPONIN I 2019-09-09 23:29:00 Travis Morel [facility] POCT GLUCOSE (AUTOMATED) 2019-09-09 23:23:00 Travis Morel [facility] ABG+COOX+NA+K+GLU+CA2+ 2019-09-09 22:44:00 [facility]ST 1 VW 2019-09-09 22:38:57 Travis Morel [facility] POCT GLUCOSE (AUTOMATED) 2019-09-09 22:14:00 Travis Morel [facility] POCT GLUCOSE(AGE >30DAYS) 2019-09-09 22:10:00 Travis Morel [facility] PHOSPHORUS 2019-09-09 21:58:00 Travis Morel [facility] MAGNESIUM 2019-09-09 21:58:00 Travis Morel [facility] OSMOLALITY SERUM 2019-09-09 21:58:00 Travis Morel [facility] BETA HYDROXY-BUTYRATE 2019-09-09 21:58:00 [facility] BASIC METABOLIC PANEL 2019-09-09 21:58:00 Travis Morel [facility] (NA, K, CL, CO2, GLUCOSE, Medica l Branch BUN, CREATININE, CA) GLYCOSYLATED HEMOGLOBIN 2019-09-09 21:58:00 Travis Morel [facility] (A1C) [facility] URINALYSIS 2019-09-09 21:58:00 Travis Morel [facility] EKG-12 LEAD 2019-09-09 21:44:28 Travis Morel [facility] POCT GLUCOSE(AGE >30DAYS) 2019-09-09 21:14:00 Travis Morel [facility] POCT GLUCOSE (AUTOMATED) 2019-09-09 21:12:00 Travis Morel [facility] ABG+COOX+NA+K+GLU+CA2+ 2019-09-09 21:00:00 [facility] LACTIC ACID WHOLE BLOOD 2019-09-09 21:00:00 Travis Morel [facility] XR CHEST 1 VW 2019-09-09 20:47:11 Travis Morel [facility] COMP. METABOLIC PANEL 2019-09-09 20:35:00 Travis Morel [facility] ([id number]) [facility] TROPONIN I 2019-09-09 20:01:00 Travis Morel [facility] CBC WITH DIFFERENTIAL 2019-09-09 20:01:00 Travis Morel [facility] N-TERMINAL PRO-BNP 2019-09-09 20:01:00 Travis Morel [facility] EKG-12 LEAD 2019-09-09 19:56:01 Travis Morel [facility] TROPONIN I 2019-08-17 10:57:00 Du Bess [facility] COMP. METABOLIC PANEL 2019-08-17 10:57:00 Du Bess [facility] ([id number]) [facility] CBC WITH DIFFERENTIAL 2019-08-17 10:57:00 Du Bess [facility] PROTHROMBIN TIME / INR 2019-08-17 10:57:00 Du Bess [facility] LIPASE 2019-08-17 10:57:00 Du Bess [facility] XR CHEST 1 VW 2019-08-17 10:36:08 Du Bess [facility] MEDICATION HISTORY 2019-03-23 05:01:00 Doctor Unassigned, [facility] RECONCILIATION FORM [place] [facility] Cardiac catheter without [facility] angiogram<sup>1</sup> Plan of Care Planned Activity Planned Date Details Comments Source Future Scheduled 2023-03-[address] [facility] 00:00:00 (Season Ended) [code = Medic al Center INFLUENZA VACCINE (Season Ended)] Future Scheduled 2023-03-[address] [facility] 00:00:00 (Season Ended) [code = Medic al Center INFLUENZA VACCINE (Season Ended)] Future Scheduled 2022-07-[address] [facility] 00:00:00 (12+) [code = Medical Center DEPRESSION SCREENING (12+)] Future Scheduled 2022-07-[address] [facility] 00:00:00 (12+) [code = Medical Center DEPRESSION SCREENING (12+)] Future Scheduled 2020-12-[address] [facility] 00:00:00 Counseling and Medical Cente r Screening (12+) [code = Tobacco Cessation Counseling and Screening (12+)] Future Scheduled 2020-12-[address] [facility] 00:00:00 [facility]ing [facility] Cent[facility] r Screening (12+) [code = Tobacco Cessation Counseling and Screening (12+)] Future Scheduled 2020-06-[address] [facility]00 measurement (procedure) [facility] [code = 59189022] Future Scheduled 2020-06-[address] [facility] 00:[facility]:00 measurement (procedure) [facility] [code = 37733332] Future Scheduled 2014 SHINGLES VACCINES ([address] [facility] 00:00:00 2[facility] Future Scheduled 2014 SHINGLES VACCINES ([address] [facility] 00:00:00 2) [facility] Future Scheduled 1999 Lipid panel (procedure) [facility] 00:00:00 [code = 92843422] Medical Ce nter Future Scheduled 1999 Lipid panel (procedure) [facility] 00:00:00 [code = 75287223] Medical Ce nter Future Scheduled 1983 DTAP/TDAP/TD VACCINES [facility] 00:[facility]:00 (1 - Tdap) [code = Medical C enter DTAP/TDAP/TD VACCINES (1 - Tdap)] Future Scheduled 1983 DTAP/TDAP/TD VACCINES [facility] 00:00:00 (1 - Tdap) [code = Medical C enter DTAP/TDAP/TD VACCINES (1 - Tdap)] Future Scheduled 1982 HEPATITIS C SCRE[facility]ING [facility] 00:[facility]:00 [code = HEPATITIS C Medical Center SCREENING] Future Scheduled 1982 HEPATITIS C [facility]CRE[facility]ING [facility] 00:[facility]:00 [code = HEPATITIS C Medical Center SCREENING] Future Scheduled 1974 DIABETIC EYE EXAM [code [facility] 00:00:00 = DIABETIC EYE EXAM] Medical Center Future Scheduled 1974 Urine screening for [facility] 00:00:00 protein (procedure) Medical Center [code = 844575096] Future Scheduled 1974 DIABETIC EYE EXAM [code [facility] 00:00:00 = DIABETIC EYE EXAM] [facility] Center Future Scheduled 1974 Urine screening for [facility] 00:00:00 protein (procedure) [facility] Center [code = 957941879] Future Scheduled [address] [facility] 00:00:00 0-64 YRS (1 - PCV) Medical C enter [code = PNEUMOCOCCAL VACCINE 0-64 YRS (1 - PCV)] Future Scheduled [address] [facility] 00:00:00 0-64 YRS (1 - PCV) Medical C enter [code = PNEUMOCOCCAL VACCINE 0-64 YRS (1 - PCV)] Future Scheduled 1964 COVID-19 VACCINE (#1[facility]:00 [code = COVID-[address] VACCINE (#1)] Future Scheduled 1964 COVID-19 VACCINE (#1) [facility]:00:00 [code = COVID-[address] VACCINE (#1)] Future Scheduled 1964 CT Colonography (combo) [facility] 00:00:00 [code = CT Colonography [facility] Center (combo)] Future Scheduled 1964 Screening for malignant [facility] 00:00:00 neoplasm of colon Medical Ce nter (procedure) [code = 600825557] Future Scheduled 1964 Screening for malignant [facility] 00:00:00 neoplasm of colon Medical Ce nter (procedure) [code = 435362381] Future Scheduled 1964 Screening for malignant [facility] 00:00:00 neoplasm of colon Medical Ce nter (procedure) [code = 793771797] Future Scheduled 1964 Screening for malignant [facility] 00:00:00 neoplasm of colon Medical Ce nter (procedure) [code = 378894935] Future Scheduled 1964 Sigmoidoscopy [code = [facility] S[facility]oidoscopy] Medical Cente r Future Scheduled 1964 CT Colonography (combo) [facility] 00:00:00 [code = CT Colonography [facility] (combo)] Future Scheduled 1964 Screening for malignant [facility] 00:00:00 neoplasm of colon Medical Ce nter (procedure) [code = 681426587] Future Scheduled 1964 Screening for malignant [facility] 00:00:00 neoplasm of colon Medical Ce nter (procedure) [code = 235748282] Future Scheduled 1964 Screening for malignant [facility] 00:00:00 neoplasm of colon Medical Ce nter (procedure) [code = 318081854] Future Scheduled 1964 Screening for malignant [facility] 00:00:00 neoplasm of colon Medical Ce nter (procedure) [code = 932269210] Future Scheduled 1964 Sigmoidoscopy [code [facility] Sigmoidoscopy] Medical Cente r Encounters Start End Encounter Admission Attending Care Care Encounter Source Date/Time Date/Time Type Type Clinicians Facility Department ID 2019-12-03 Inpatient ER [facility] Medical ICU [id number] [facility] 11:22:11 NASRIN ALMANZAR 2022-11-07 2022-11-07 Outpatient [facility] PRIV PRIV [id number] [facility] 00:00:00 00:00:00 n_J [id number] Medica l 2021-04-22 2021-04-22 Outpatient GC_[facility] PRIV PRIV [id number] [facility] 00:00:00 00:00:00 n_Akil [id number] Medica l 2021-02-06 2021-02-06 Leo CHINCHILLA [id number] Univers 00:00:00 00:00:00 Only Unassigned, GOLD [id number] ity of [place] [facility] [id number] Nas as [phone] [facility] [address] [place] 2019-11-05 2019-11-05 Patient Wen Alex [id number] Univers 00:00:00 00:00:00 Outreach E Melendez [id number] i [phone] [address] 2019-10-03 2019-10-03 Orders Doctor AMOR [id number] Univers 00:00:00 00:00:00 Only Unassigned, GOLD [id number] ity of [place] [facility] [id number] Nas as [phone] [address] 2019-09-21 2019-09-21 Patient Wen Alex [id number] Univers 00:00:00 00:00:00 Outreach E Melendez [id number] i [phone] [address] 2019-09-14 2019-09-14 Transition BoatengSarah bedolla [id number] Univers 00:00:00 00:00:00 of Care Stephany Melendez 350.1.13.10 it[place] [id number] [facility] [address] 2019-09-09 2019-09-13 Hospital Travis Morel 1.2.8 40.114 [id number] Univers 13:40:54 18:22:00 Encounter Trevor Lockhart 350.1.13. 10 ity of Aislinn Hathaway [facility] 4.2.7.2.[address] [place] [address] [phone] [facility] [address] 2019-09-09 2019-09-13 Inpatient X [facility] [id number] Univers 13:40:54 18:22:00 AISLINN garcia [facility] 2019-08-17 2019-08-17 Emergency X MARIA ALEJANDRA MTHOWARD ERT [id number] Univers 04:10:57 06:40:00 DU ity of [facility] 2019-08-17 2019-08-17 Emergency Maria Alejandra [facility] [id number] Univers 04:10:57 06:40:00 Du Bedolla Wright 350.1.13.10 [place] [id number] [facility] [address] 2019-03-23 2019-03-23 Orders Doctor AMOR 1.2.840.114 [id number] Univers 00:00:00 00:00:00 Only Unassigned, GOLD 350.1.13.10 ity of [place] [facility] 4.2.7.2.686 Nas as [phone] [facility] [address] 2019-03-01 2019-03-01 Telephone Salena Beasley 1.2.840.114 [id number] Univers 00:00:00 00:00:00 [facility] 350.1.13.10 it y [place] [phone] [facility] [address] 2019-02-27 2019-02-27 Telephone Salena Beasley 1.2.840.114 [id number] Univers 00:00:00 00:00:00 [facility] 350.1.13.10 it y [place] [id number] [address] 2019-02-22 2019-02-22 Telephone Tariq [facility] 1.2.214.336 [id number] Univers 00:00:00 00:00:00 [facility] 350.1.13.10 [place] [phone] [place] [address] 2018-01-07 2018-01-08 Inpatient [facility] [id number] Memoria 07:45:00 21:36:00 lyudmila Bansal 65 l [facility] 2018-01-07 2018-01-08 Inpatient [facility] [id number] Memoria 07:45:00 21:36:00 r [place] 66 l [facility] 2018-01-07 2018-01-08 Outpatient LUIZA Duncan [place] [id number] 02:45:00 16:36:00 Jaswindererich Colon 2018-01-07 2018-01-07 [facility] [id number] Memoria 03:39:00 07:22:00 r R[place] 00 l [facility] 2018-01-07 2018-01-07 [facility] [id number] Memoria 03:39:00 07:22:00 r [place] 00 l [facility] 2018-01-06 2018-01-07 Outpatient Zenaida, [address] [id number] 22:39:00 02:22:00 Leobardo 00 Frank Results Test Description Test Time Test Comments Results Result Sourc e Comments TISSUE EXAM 2019-12-12 Surgical Pathology Report 17:29:00 Case: [id number] Authorizing Provider: Jorge Goodwin, Collected: 12/07/2019 08:30 AM Ordering Location: [address] Received: 12/07/2019 01:30 PM Service Pathologist: [...] stains. Immunohistochemistry technical testing was performed at [facility], Pathology Laboratory where it was developed [...] high complexity clinical laboratory testing. CPT CODE: 40400; 86416 X 2; 73649 X 2 Addendum electronically signed by Zainab [...] ADDENDUM REPORT Signing Pathologist Direct Phone Line: [phone] y signed by Zainab Snider MD on 12/08/2019 at 5:16 [id number] X 3; [id number]: Upper endoscopy, biopsyPre and postop diagnosis: dysphagiaA. [...] evaluated Immunohistochemistry technical testing was performed at [facility], Pathology Laboratory where it was developed [...] 1095) No growth in 5 days BLOOD [id number] 14:00:00 Test Item Value Reference Range Interpretation Comments CULTURE (BEAKER) (test No growth in 5 days code = 1095) POCT-GLUCOSE [id number] 12:44:00 Test Item Value Reference Range Interpretation Comments POC-GLUCOSE METER 167 mg/dL 70-110 H : TESTED A T [facility] 6720 (BEAKER) (test code = [facility], 1538) 26867: Embedded Hardware Engineer/Techni sebastian ID = [id number] for FA LOUIS, TERI POCT-GLUCOSE [id number] 08:48:00 Test Item Value Reference Range Interpretation Comments POC-GLUCOSE METER 204 mg/dL 70-110 H : TESTED A T [facility] 6720 (BEAKER) (test code = [facility], 1538) 26978: Embedded Hardware Engineer/Techni sebastian ID = [id number] for FA LOUIS, TERI [id number] 04:30:00 Test Item Value Reference Range Interpretation Comments PHOSPHORUS (BEAKER) (test code = 3.0 mg/dL 2.3-4.7 604) Embedded Hardware Engineer ID - MIRANDA [id number] 04:30:00 Test Item Value Reference Range Interpretation Comments MAGNESIUM (BEAKER) (test code = 1.6 mg/dL 1.6-2.6 627) Embedded Hardware Engineer ID - MIRANDA WBASIC METABOLIC [id number] 04:30:00 Test Item Value Reference Range Interpretation [...] S NOT APPLICABLE FOR DIALYSIS PATIEN TS. Embedded Hardware Engineer ID Soheila JEAN WHEPATIC FUNCTION [id number] 04:30:00 Test Item Value Reference Range Interpretation [...] (test code = 11 U/L 6-55 347) Embedded Hardware Engineer MARIA LUISA JEAN WCBC W/PLT COUNT & AUTO [id number] 03:54:00 Test Item Value Reference Range Interpretation [...] PERCENT (BEAKER) (test code = 2801) POCT-GLUCOSE [id number] 22:40:00 Test Item Value Reference Range Interpretation Comments POC-GLUCOSE METER 41 mg/dL 70-110 L : TESTED A T [facility] 6720 (BEAKER) (test code = [facility], 1538) 98588: Embedded Hardware Engineer/Techni sebastian ID = [id number] for MIRANDA KEENAN POCT-GLUCOSE [id number] 21:12:00 Test Item Value Reference Range Interpretation Comments POC-GLUCOSE METER 94 mg/dL 70-110 : TESTED A T [facility] 6720 (BEAKER) (test code = [facility], 1538) 08505: Embedded Hardware Engineer/Techni sebastian ID = [id number] for SARAH RAO POCT-GLUCOSE [id number] 17:38:00 Test Item Value Reference Range Interpretation Comments POC-GLUCOSE METER 156 mg/dL 70-110 H : TESTED A T [facility] 6720 (BEAKER) (test code = [facility], [facility]8) 00906: Embedded Hardware Engineer/Techni sebastian ID = [id number] for CHARLIE MONTEZ [id number] 14:53:00 Test Item Value Reference Range Interpretation Comments FERRITIN (BEAKER) (test Ferr itin: 78 code = 361) ng/mLReference Range: 24 - 380 ng/mLTest ing performed at [facility] . POCT-GLUCOSE [id number] 12:01:00 Test Item Value Reference Range Interpretation Comments POC-GLUCOSE METER 115 mg/dL 70-110 H : TESTED A T [facility] 6720 (BEAKER) (test code = [facility], [facility]8) 25043: Embedded Hardware Engineer/Techni sebastian ID = [id number] for CHARLIE MONTEZ POCT-GLUCOSE [id number] 09:18:00 Test Item Value Reference Range Interpretation Comments POC-GLUCOSE METER 251 mg/dL 70-110 H : TESTED A T [facility] 6720 (BEAKER) (test code = [facility], 1538) 73700: Embedded Hardware Engineer/Techni sebastian ID = [id number] for SAGE GREEN POCT-GLUCOSE [id number] 08:11:00 Test Item Value Reference Range Interpretation Comments POC-GLUCOSE METER 294 mg/dL 70-110 H : TESTED A T [facility] 6720 (BEAKER) (test code = [facility] [place], 1538) 00476: Embedded Hardware Engineer/Techni sebastian ID = [id number] for BRONWYN ROSARIO [id number] 04:16:00 Test Item Value Reference Range Interpretation Comments PHOSPHORUS (BEAKER) (test code = 3.2 mg/dL 2.3-4.7 604) Embedded Hardware Engineer ID - [id number] 04:16:00 Test Item Value Reference Range Interpretation Comments MAGNESIUM (BEAKER) (test code = 1.7 mg/dL 1.6-2.6 627) Embedded Hardware Engineer ID - LABASIC METABOLIC [id number] 04:16:00 Test Item Value Reference Range Interpretation [...] S NOT APPLICABLE FOR DIALYSIS PATIEN TS. Embedded Hardware Engineer ID - LAHEPATIC FUNCTION [id number] 04:16:00 Test Item Value Reference Range Interpretation [...] (test code = 13 U/L 6-55 347) Embedded Hardware Engineer ID - LACBC W/PLT COUNT & AUTO [id number] 03:54:00 Test Item Value Reference Range Interpretation [...] PERCENT (BEAKER) (test code = 2801) POCT-GLUCOSE [id number] 21:19:00 Test Item Value Reference Range Interpretation Comments POC-GLUCOSE METER 137 mg/dL 70-110 H : TESTED A T [facility] 6720 (BEAKER) (test code = [facility], 1538) 69831: Embedded Hardware Engineer/Techni sebastian ID = [id number] for SARAH LABOY POCT-GLUCOSE [id number] 17:18:00 Test Item Value Reference Range Interpretation Comments POC-GLUCOSE METER 128 mg/dL 70-110 H : TESTED A T [facility] 6720 (BEAKER) (test code = [facility], 1538) 03759: Embedded Hardware Engineer/Techni sebastian ID = [id number] for ALEJANDRO ESPINAL [id number] 12:08:00 Test Item Value Reference Range Interpretation Comments MAGNESIUM (BEAKER) 1.9 mg/dL 1.6-2.6 Specimen moderately (test code = 627) hemolyzed Embedded Hardware Engineer ID ADAMS [id number] 12:08:00 Test Item Value Reference Range Interpretation Comments PHOSPHORUS (BEAKER) 2.3 mg/dL 2.3-4.7 Specimen moderately (test code = 604) hemolyzed Embedded Hardware Engineer ID ADAMS FBASIC METABOLIC [id number] 12:08:00 Test Item Value Reference Range Interpretation [...] S NOT APPLICABLE FOR DIALYSIS PATIEN TS. Embedded Hardware Engineer ID Soheila LAMAS FPOCT-GLUCOSE [id number] 11:32:00 Test Item Value Reference Range Interpretation Comments POC-GLUCOSE METER 156 mg/dL 70-110 H : TESTED A T [facility] 6720 (BEAKER) (test code = [facility], 1538) 18286: Embedded Hardware Engineer/Techni sebastian ID = [id number] for JOSE C ALVES SARS-COV2/RT-PCR ([facility])2019-12-06 11:20:00 Test Item Value Reference Range Interpretation Comments SARS-COV2/RT-PCR (test code = Negative Not Detected, Negative [id number]) SARS-COV-2 PERFORMING LAB CPL (test code = 3081447) POCT-GLUCOSE [id number] 07:52:00 Test Item Value Reference Range Interpretation Comments POC-GLUCOSE METER 251 mg/dL 70-110 H : TESTED A T [facility] 6720 (BEAKER) (test code = [facility], 1538) 45764: Embedded Hardware Engineer/Techni sebastian ID = [id number] for ALEJANDRO ESPINAL [id number] 04:17:00 Test Item Value Reference Range Interpretation Comments MAGNESIUM (BEAKER) 1.8 mg/dL 1.6-2.6 Specimen slightly (test code = 627) hemolyzed Embedded Hardware Engineer ID - MILAGRO [id number] 04:17:00 Test Item Value Reference Range Interpretation Comments PHOSPHORUS (BEAKER) 2.1 mg/dL 2.3-4.7 L Specimen slightly (test code = 604) hemolyzed Embedded Hardware Engineer ID - MILAGRO LBASIC METABOLIC [id number] 04:17:00 Test Item Value Reference Range Interpretation [...] S NOT APPLICABLE FOR DIALYSIS PATIEN TS. Embedded Hardware Engineer ID - MILAGRO EPATIC FUNCTION [id number] 04:17:00 Test Item Value Reference Range Interpretation [...] Specimen slightly (test code = 347) hemolyzed Embedded Hardware Engineer ID Soheila SEBASTIAN, TIBC, % SAT. (WITHOUT FERRITIN)2019-12-06 04:15:00 Test Item Value Reference Range Interpretation Comments IRON (BEAKER) (test code = 547) 102.0 ug/dL 40.0-160.0 TOTAL IRON BINDING CAPACITY 260 ug/dL 250-450 (BEAKER) (test code = 769) IRON % SATURATION (2) (BEAKER) 39 % 20-55 (test code = 2590) Embedded Hardware Engineer ID - PIAYA LRETICULOCYTE [id number] 03:53:00 Test Item Value Reference Range Interpretation Comments RETICULOCYTE COUNT PCT (BEAKER) (test 0.9 % 0.5-1.8 code = 575) Embedded Hardware Engineer ID - [id number] W/PLT COUNT & AUTO [id number] 03:53:00 Test Item Value Reference Range Interpretation [...] 0-1 PERCENT (BEAKER) (test code = 2801) [id number] 22:22:00 Test Item Value Reference Range Interpretation Comments PHOSPHORUS (BEAKER) (test code = 1.9 mg/dL 2.3-4.7 L 604) Embedded Hardware Engineer ID - [id number] 22:22:00 Test Item Value Reference Range Interpretation Comments MAGNESIUM (BEAKER) (test code = 1.8 mg/dL 1.6-2.6 627) Embedded Hardware Engineer ID - BSBASIC METABOLIC [id number] 22:22:00 Test Item Value Reference Range Interpretation [...] S NOT APPLICABLE FOR DIALYSIS PATIEN TS. Embedded Hardware Engineer ID - BSPOCT-GLUCOSE [id number] 20:47:00 Test Item Value Reference Range Interpretation Comments POC-GLUCOSE METER 215 mg/dL 70-110 H : TESTED A T [facility] 6720 (BEAKER) (test code = [facility], 1538) 48265: Embedded Hardware Engineer/Techni sebastian ID = [id number] for MARITZA DIAS POCT-GLUCOSE [id number] 17:46:00 Test Item Value Reference Range Interpretation Comments POC-GLUCOSE METER 93 mg/dL 70-110 : TESTED A T [facility] 6720 (BEAKER) (test code = [facility], 1538) 77795: Embedded Hardware Engineer/Techni sebastian ID = [id number] for Bony Dangelo POCT-GLUCOSE [id number] 15:06:00 Test Item Value Reference Range Interpretation Comments POC-GLUCOSE METER 106 mg/dL 70-110 : TESTED A T [facility] 6720 (BEAKER) (test code = [facility] [employer] [facility], 1538) 54023: Embedded Hardware Engineer/Techni sebastian ID = [id number] for Bony Amin [id number] 13:15:00 Test Item Value Reference Range Interpretation Comments POTASSIUM (BEAKER) (test code = 3.2 meq/L 3.5-5.1 L 379) Embedded Hardware Engineer ID - [id number] 13:15:00 Test Item Value Reference Range Interpretation Comments MAGNESIUM (BEAKER) (test code = 2.1 mg/dL 1.6-2.6 627) Embedded Hardware Engineer ID - [id number] 13:15:00 Test Item Value Reference Range Interpretation Comments PHOSPHORUS (BEAKER) (test code = 2.1 mg/dL 2.3-4.7 L 604) Embedded Hardware Engineer ID - [id number] 13:15:00 Test Item Value Reference Range Interpretation Comments GLUCOSE RANDOM (BEAKER) (test code = 84 mg/dL 70-105 652) Embedded Hardware Engineer ID - NTPBASIC METABOLIC [id number] 13:15:00 Test Item Value Reference Range Interpretation [...] S NOT APPLICABLE FOR DIALYSIS PATIEN TS. Embedded Hardware Engineer ID - NTPPOCT-GLUCOSE [id number] 12:29:00 Test Item Value Reference Range Interpretation Comments POC-GLUCOSE METER 99 mg/dL 70-110 : [facility]) (test code = [facility], 1537) 30669: Embedded Hardware Engineer/Techni sebastian ID = [id number] for ISAAC Rivera PATEL POCT-GLUCOSE [id number] 09:17:00 Test Item Value Reference Range Interpretation Comments POC-GLUCOSE METER 302 mg/dL 70-110 H : [facility] ([facility]) (test code = [facility], 1537) 91338: Embedded Hardware Engineer/Techni sebastian ID = [id number] for ALPHONSO TAVERAS PATEL POCT-GLUCOSE [id number] 09:12:00 Test Item Value Reference Range Interpretation Comments POC-GLUCOSE METER 461 mg/dL 70-110 HH : Notified RN/MD: ([facility]) (test code = TESTED AT [place] [address] 1537) [facility], 38929: Embedded Hardware Engineer/Techni sebastian ID = [id number] for AD AMSCRESENCIORAUL BASIC METABOLIC [id number] 06:59:00 Test Item Value Reference Range Interpretation [...] S NOT APPLICABLE FOR DIALYSIS PATIEN TS. Embedded Hardware Engineer ID - [id number] 06:57:00 Test Item Value Reference Range Interpretation Comments PHOSPHORUS (BEAKER) (test code = 1.4 mg/dL 2.3-4.7 LL 604) Embedded Hardware Engineer ID - [id number] 06:06:00 Test Item Value Reference Range Interpretation Comments MAGNESIUM (BEAKER) (test code = 2.0 mg/dL 1.6-2.6 627) Embedded Hardware Engineer ID - MILAGRO LHEPATIC FUNCTION [id number] 06:06:00 Test Item Value Reference Range Interpretation [...] (test code = 14 U/L 6-55 347) Embedded Hardware Engineer ID - MILAGRO LCBC W/PLT COUNT & AUTO [id number] 04:11:00 Test Item Value Reference Range Interpretation [...] PERCENT (BEAKER) (test code = 2801) POCT-GLUCOSE [id number] 22:25:00 Test Item Value Reference Range Interpretation Comments POC-GLUCOSE METER 151 mg/dL 70-110 H : TESTED A T [facility] 6720 (BEAKER) (test code = [facility]ul[facility], 1538) 51202: Embedded Hardware Engineer/Techni sebastian ID = [id number] for AD AMS, RAUL [id number] 21:59:00 Test Item Value Reference Range Interpretation Comments MAGNESIUM (BEAKER) 2.0 mg/dL 1.6-2.6 Specimen slightly (test code = 627) hemolyzed Embedded Hardware Engineer ID - [id number] 21:59:00 Test Item Value Reference Range Interpretation Comments PHOSPHORUS (BEAKER) 1.7 mg/dL 2.3-4.7 L Specimen slightly (test code = 604) hemolyzed Embedded Hardware Engineer ID - BSBASIC METABOLIC [id number] 21:59:00 Test Item Value Reference Range Interpretation [...] S NOT APPLICABLE FOR DIALYSIS PATIEN TS. Embedded Hardware Engineer ID - BSPOCT-GLUCOSE [id number] 18:08:00 Test Item Value Reference Range Interpretation Comments POC-GLUCOSE METER 191 mg/dL 70-110 H : TESTED A T [facility] 6720 (BEAKER) (test code = [facility], [facility]8) 59999: Embedded Hardware Engineer/Techni sebastian ID = [id number] for Mo woody, Conrado POCT-GLUCOSE [id number] 17:22:00 Test Item Value Reference Range Interpretation Comments POC-GLUCOSE METER 229 mg/dL 70-110 H : TESTED A T [facility] 6720 (BEAKER) (test code = [facility], [facility]8) 74088: Embedded Hardware Engineer/Techni sebastian ID = [id number] for Mo woody, Conrado POCT-GLUCOSE [id number] 16:35:00 Test Item Value Reference Range Interpretation Comments POC-GLUCOSE METER 249 mg/dL 70-110 H : TESTED A T [facility] 6720 (BEAKER) (test code = [facility], [facility]) 63304: Embedded Hardware Engineer/Techni sebastian ID = [id number] for SE KATIELO, MARISOL POCT-GLUCOSE [id number] 15:20:00 Test Item Value Reference Range Interpretation Comments POC-GLUCOSE METER 252 mg/dL 70-110 H : TESTED A T [facility] 6720 (BEAKER) (test code = [facility], [facility]) 35870: Embedded Hardware Engineer/Techni sebastian ID = [id number] for NG NOEL, VY POCT-GLUCOSE [id number] 14:21:00 Test Item Value Reference Range Interpretation Comments POC-GLUCOSE METER 257 mg/dL 70-110 H : TESTED A T [facility] 6720 (BEAKER) (test code = [facility], [facility]) 75489: Embedded Hardware Engineer/Techni sebastian ID = [id number] for SE RILLO, MARISOL POCT-GLUCOSE [id number] 13:16:00 Test Item Value Reference Range Interpretation Comments POC-GLUCOSE METER 250 mg/dL 70-110 H : TESTED A T [facility] 6720 (BEAKER) (test code = [facility], [facility]) 85393: Embedded Hardware Engineer/Techni sebastian ID = [id number] for Mo woody, Conrado [id number] 12:55:00 Test Item Value Reference Range Interpretation Comments PHOSPHORUS (BEAKER) (test code = 2.0 mg/dL 2.3-4.7 L 604) Embedded Hardware Engineer ID - [id number] 12:55:00 Test Item Value Reference Range Interpretation Comments MAGNESIUM (BEAKER) (test code = 2.3 mg/dL 1.6-2.6 627) Embedded Hardware Engineer ID - ADMINBASIC METABOLIC [id number] 12:55:00 Test Item Value Reference Range Interpretation [...] S NOT APPLICABLE FOR DIALYSIS PATIEN TS. Embedded Hardware Engineer ID - ADMINPOCT-GLUCOSE [id number] 12:31:00 Test Item Value Reference Range Interpretation Comments POC-GLUCOSE METER 142 mg/dL 70-110 H : TESTED A T [facility] 6720 (BEAKER) (test code = [facility], 1538) 33768: Embedded Hardware Engineer/Techni sebastian ID = [id number] for Mo woody, Conrado POCT-GLUCOSE [id number] 11:12:00 Test Item Value Reference Range Interpretation Comments POC-GLUCOSE METER 160 mg/dL 70-110 H : TESTED A T [facility] 6720 (BEAKER) (test code = [facility], 1538) 55413: Embedded Hardware Engineer/Techni sebastian ID = [id number] for Mo woody, Conrado POCT-GLUCOSE [id number] 10:43:00 Test Item Value Reference Range Interpretation Comments POC-GLUCOSE METER 124 mg/dL 70-110 H : [facility] ([facility]) (test code = [facility], 153) 16251: Embedded Hardware Engineer/Techni sebastian ID = [id number] for NG NOEL, VY POCT-GLUCOSE [id number] 10:14:00 Test Item Value Reference Range Interpretation Comments POC-GLUCOSE METER 85 mg/dL 70-110 : TESTED A T [facility] 6720 ([facility]) (test code = [facility], 153) 88517: Embedded Hardware Engineer/Techni sebastian ID = [id number] for NGUY EN, VY POCT-GLUCOSE [id number] 10:00:00 Test Item Value Reference Range Interpretation Comments POC-GLUCOSE METER 79 mg/dL 70-110 : TESTED A T [place] 7274420 ([facility]) (test code = [facility], 153) 88251: Embedded Hardware Engineer/Techni sebastian ID = [id number] for More no, Conrado POCT-GLUCOSE [id number] 09:59:00 Test Item Value Reference Range Interpretation Comments POC-GLUCOSE METER 73 mg/dL 70-110 : TESTED A T [facility] 6720 ([facility]) (test code = [facility], 153) 50058: Embedded Hardware Engineer/Techni sebastian ID = [id number] for NGUY EN, VY POCT-GLUCOSE [id number] 09:58:00 Test Item Value Reference Range Interpretation Comments POC-GLUCOSE METER 113 mg/dL 70-110 H : TESTED A T [facility] 6720 ([facility]) (test code = [facility], 153) 96352: Embedded Hardware Engineer/Techni sebastian ID = [id number] for MARISOL JANSEN POCT-GLUCOSE [id number] 09:56:00 Test Item Value Reference Range Interpretation Comments POC-GLUCOSE METER 157 mg/dL 70-110 H : Notified RN/MD: Pt. ([facility]) (test code = on IV insulin: TESTED 1537) AT [facility] [address] [place] [address], 770 30: Embedded Hardware Engineer/Techni sebastian ID = [id number] for SA FFASHLEIGHKUSHALAE POCT-GLUCOSE [id number] 09:55:00 Test Item Value Reference Range Interpretation Comments POC-GLUCOSE METER 189 mg/dL 70-110 H : Notified RN/MD: Pt. (CAROL) (test code = on IV insulin: TESTED 153) AT [address], 770 30: Embedded Hardware Engineer/Techni sebastian ID = [id number] for SA FFORD, KUSHALAE POCT-GLUCOSE [id number] 09:53:00 Test Item Value Reference Range Interpretation Comments POC-GLUCOSE METER 201 mg/dL 70-110 H : Notified RN/MD: Pt. (CAROL) (test code = on IV insulin: TESTED 153) AT [address], 770 30: Embedded Hardware Engineer/Techni sebastian ID = [id number] for SA FFORD, KUSHALAE POCT-GLUCOSE [id number] 09:53:00 Test Item Value Reference Range Interpretation Comments POC-GLUCOSE METER 202 mg/dL 70-110 H : Notified RN/MD: Pt. (CAROL) (test code = on IV insulin: TESTED 153) AT [address], [address]: Embedded Hardware Engineer/Techni sebastian ID = [id number] for SA FFORD, KUSHALAE POCT-GLUCOSE [id number] 09:52:00 Test Item Value Reference Range Interpretation Comments POC-GLUCOSE METER 214 mg/dL 70-110 H : Notified RN/MD: (CAROL) (test code = TESTED AT [place] [id number]) [facility], [address]: Embedded Hardware Engineer/Techni sebastian ID = [id number] for SA FFORD, KUSHALAE POCT-GLUCOSE [id number] 09:52:00 Test Item Value Reference Range Interpretation Comments POC-GLUCOSE METER 187 mg/dL 70-110 H : Notified RN/MD: (CAROL) (test code = TESTED AT [place] [address] 1538) [facility], [address]: Embedded Hardware Engineer/Techni sebastian ID = [id number] for SA FFORD, CHANAE POCT-GLUCOSE [id number] 09:52:00 Test Item Value Reference Range Interpretation Comments POC-GLUCOSE METER 176 mg/dL 70-110 H : Notified RN/MD: (CAROL) (test code = TESTED AT [place] [address]) [facility], [address]: Embedded Hardware Engineer/Techni sebastian ID = [id number] for SA FFORD, CHANAE POCT-GLUCOSE [id number] 09:51:00 Test Item Value Reference Range Interpretation Comments POC-GLUCOSE METER 151 mg/dL 70-110 H : Notified RN/MD: (CAROL) (test code = TESTED AT [place] [address]) [facility], [address]: Embedded Hardware Engineer/Techni sebastian ID = [id number] for SA FFORD, CHANAE POCT-GLUCOSE [id number] 09:50:00 Test Item Value Reference Range Interpretation Comments POC-GLUCOSE METER 138 mg/dL 70-110 H : Notified RN/MD: (CAROL) (test code = TESTED AT [place] [address]) [facility], [address]: Embedded Hardware Engineer/Techni sebastian ID = [id number] for SA FFORD, CHANAE POCT-GLUCOSE [id number] 09:49:00 Test Item Value Reference Range Interpretation Comments POC-GLUCOSE METER 152 mg/dL 70-110 H : Notified RN/MD: (CAROL) (test code = TESTED AT [place] [address]) [facility], [address]: Embedded Hardware Engineer/Techni sebastian ID = [id number] for SA FFORD, CHANAE POCT-GLUCOSE [id number] 09:47:00 Test Item Value Reference Range Interpretation Comments POC-GLUCOSE METER 193 mg/dL 70-110 H : Notified RN/MD: (CAROL) (test code = TESTED AT [place] [address]) [facility], [address]: Embedded Hardware Engineer/Techni sebastian ID = [id number] for SA FFORD, CHANAE POCT-GLUCOSE [id number] 09:45:00 Test Item Value Reference Range Interpretation Comments POC-GLUCOSE METER 209 mg/dL 70-110 H : Notified RN/MD: (CAROL) (test code = TESTED AT [place] [address]) [facility], [address]: Embedded Hardware Engineer/Techni sebastian ID = [id number] for SA FFORD, CHANAE POCT-GLUCOSE [id number] 09:45:00 Test Item Value Reference Range Interpretation Comments POC-GLUCOSE METER 261 mg/dL 70-110 H : TESTED [place] [address] (CAROL) (test code = [facility], 153) [address]: Embedded Hardware Engineer/Techni sebastian ID = [id number] for MARISOL JANSEN POCT-GLUCOSE [id number] 09:44:00 Test Item Value Reference Range Interpretation Comments POC-GLUCOSE METER 279 mg/dL 70-110 H : Notified RN/MD: (CAROL) (test code = TESTED AT [place] [address] 1538) [facility], [address]: Embedded Hardware Engineer/Techni sebastian ID = [id number] for LL OYD, TIKEYA POCT-GLUCOSE [id number] 09:42:00 Test Item Value Reference Range Interpretation Comments POC-GLUCOSE METER 277 mg/dL 70-110 H : Notified RN/MD: (CAROL) (test code = TESTED AT [place] [address] 1538) [facility], [address]: Embedded Hardware Engineer/Techni sebastian ID = [id number] for LL OYD, TIKEYA POCT-GLUCOSE [id number] 09:40:00 Test Item Value Reference Range Interpretation Comments POC-GLUCOSE METER 331 mg/dL 70-110 H : TESTED [place] [address] ([facility]) (test code = [facility], 153) [address]: Embedded Hardware Engineer/Techni sebastian ID = [id number] for Derian Contio POCT-GLUCOSE [id number] 09:39:00 Test Item Value Reference Range Interpretation Comments POC-GLUCOSE METER 342 mg/dL 70-110 H : Notified RN/MD: (CAROL) (test code = TESTED AT [place] [address] 1538) [facility], [address]: Embedded Hardware Engineer/Techni sebastian ID = [id number] for LL OYD, TIKEYA POCT-GLUCOSE [id number] 09:36:00 Test Item Value Reference Range Interpretation Comments POC-GLUCOSE METER 260 mg/dL 70-110 H : Notified RN/MD: (CAROL) (test code = TESTED AT [place] [address]) [facility], [address]: Embedded Hardware Engineer/Techni sebastian ID = [id number] for LL OYD, TIKEYA CBC W/PLT COUNT & AUTO [id number] 07:07:00 Test Item Value Reference Range Interpretation [...] CONCENTRATION Adequate (CELLAVISION)(BEAKER) (test code = 3438) Embedded Hardware Engineer ID - Nayeli Marquez comments: Slide comments:BLOOD GAS, [id number] 03:50:00 Test Item Value Reference Range Interpretation [...] (BEAKER) (test code = 1819) 21.0 % [id number] 03:48:00 Test Item Value Reference Range Interpretation Comments PHOSPHORUS (BEAKER) (test code = 2.0 mg/dL 2.3-4.7 L 604) Embedded Hardware Engineer ID - ALFONZO [id number] 03:48:00 Test Item Value Reference Range Interpretation Comments MAGNESIUM (BEAKER) (test code = 1.7 mg/dL 1.6-2.6 627) Embedded Hardware Engineer ID - ALFONZO MBASIC METABOLIC [id number] 03:48:00 Test Item Value Reference Range Interpretation [...] S NOT APPLICABLE FOR DIALYSIS PATIEN TS. Embedded Hardware Engineer ID - ALFONZO MHEPATIC FUNCTION [id number] 03:48:00 Test Item Value Reference Range Interpretation [...] (test code = 17 U/L 6-55 347) Embedded Hardware Engineer ID - ALFONZO [id number] 00:46:00 Test Item Value Reference Range Interpretation Comments MAGNESIUM (BEAKER) 1.9 mg/dL 1.6-2.6 Specimen slightly (test code = 627) hemolyzed Embedded Hardware Engineer ID - DBBASIC METABOLIC [id number] 00:46:00 Test Item Value Reference Range Interpretation [...] S NOT APPLICABLE FOR DIALYSIS PATIEN TS. Embedded Hardware Engineer ID - [id number] 20:39:00 Test Item Value Reference Range Interpretation Comments MAGNESIUM (BEAKER) (test code = 1.9 mg/dL 1.6-2.6 627) Embedded Hardware Engineer ID - NTPBASIC METABOLIC [id number] 20:39:00 Test Item Value Reference Range Interpretation [...] S NOT APPLICABLE FOR DIALYSIS PATIEN TS. Embedded Hardware Engineer ID - NTPBLOOD GAS, [id number] 20:19:00 Test Item Value Reference Range Interpretation [...] C (test code = 1818) BASIC METABOLIC [id number] 17:09:00 Test Item Value Reference Range Interpretation [...] S NOT APPLICABLE FOR DIALYSIS PATIEN TS. Embedded Hardware Engineer ID - [id number] 17:02:00 Test Item Value Reference Range Interpretation Comments PHOSPHORUS (BEAKER) (test code = 2.5 mg/dL 2.3-4.7 604) Embedded Hardware Engineer ID - [id number] 17:02:00 Test Item Value Reference Range Interpretation Comments MAGNESIUM (BEAKER) (test code = 2.0 mg/dL 1.6-2.6 627) Embedded Hardware Engineer ID - NTPBLOOD GAS, [id number] 16:46:00 Test Item Value Reference Range Interpretation [...] 37.0 C (test code = 1818) HEMOGLOBIN [id number] 14:14:00 Test Item Value Reference Range Interpretation Comments HEMOGLOBIN A1C (BEAKER) (test code = 8.3 % 4.3-6.1 H 368) Embedded Hardware Engineer ID - [id number] 13:53:00 Test Item Value Reference Range Interpretation Comments PROCALCITONIN (BEAKER) (test code 1.18 ng/mL <0.05 H = 3036) SEPSIS RISK (ng/mL)Low: 0.05-0.50Intermediate: 0.51-2.00High: >=2.01BASIC METABOLIC [id number] 13:52:00 Test Item Value Reference Range Interpretation [...] S NOT APPLICABLE FOR DIALYSIS PATIEN TS. Embedded Hardware Engineer ID - NTPTROPONIN [id number] 13:51:00 Test Item Value Reference Range Interpretation [...] failure, acidosis, acute neurological disease, and persistent tachyarrhythmia.Embedded Hardware Engineer ID - NTPRAPID DRUG SCREEN, [id number] 13:50:00 Test Item Value Reference Range Interpretation [...] situations. Chain of custody not maintained. Some vadg-xsk-ycdmvop medications, as well as adulterants, may cause inaccurate results. Clinical correlation should be applied. A more comprehensive drug screen or confirmation of a detected drug may be performed upon request.Embedded Hardware Engineer ID - NTPCREATININE, RANDOM [id number] 13:46:00 Test Item Value Reference Range Interpretation Comments CREATININE URINE (BEAKER) (test 21.4 mg/dL code = 375) Reference Range: No NormalsOperator ID - NTPSODIUM, RANDOM [id number] 13:46:00 Test Item Value Reference Range Interpretation Comments SODIUM URINE (BEAKER) (test code = 116 meq/L 243) Reference Range: No NormalsOperator ID - NTPUREA NITROGEN, RANDOM URINE 2019-12-03 13:46:00 Test Item Value Reference Range Interpretation Comments UREA NITROGEN URINE (BEAKER) (test 268 mg/dL code = 538) Reference Range: No NormalsOperator ID - [id number] 13:44:00 Test Item Value Reference Range Interpretation Comments PHOSPHORUS (BEAKER) (test code = 3.5 mg/dL 2.3-4.7 604) Embedded Hardware Engineer ID - [id number] 13:44:00 Test Item Value Reference Range Interpretation Comments MAGNESIUM (BEAKER) (test code = 2.1 mg/dL 1.6-2.6 627) Embedded Hardware Engineer ID - NTPHEPATIC FUNCTION [id number] 13:44:00 Test Item Value Reference Range Interpretation [...] (test code = 18 U/L 6-55 347) Embedded Hardware Engineer ID - [id number] 13:44:00 Test Item Value Reference Range Interpretation Comments AMYLASE (BEAKER) (test code = 349) 28 U/L 25-125 Embedded Hardware Engineer ID - [id number] 13:44:00 Test Item Value Reference Range Interpretation Comments LIPASE (BEAKER) (test code = 749) 15 U/L 8-78 Embedded Hardware Engineer ID - NTPLACTIC ACID, [id number] 13:31:00 Test Item Value Reference Range Interpretation Comments LACTATE BLOOD VENOUS (2) (BEAKER) 0.98 mmol/L 0.50-2.20 (test code = 2872) Embedded Hardware Engineer ID - NTPURINALYSIS W/ REFLEX URINE [id number] 13:29:00 Test Item Value Reference Range Interpretation [...] < /HPF SOURCE(BEAKER) (test code = 2795) Embedded Hardware Engineer ID - [auto]Embedded Hardware Engineer ID - techBLOOD GAS, [id number] 13:16:00 Test Item Value Reference Range Interpretation [...] = 1818) RAD, CHEST, 1 VIEW, NON [id number] 13:06:00Reason for exam:->shortness of breathShould this be [...] Ware MDReport Verified Date/Time: 12/03/2019 13:06:53Reading Location: [address] Ortho Consult Reading Room POCT GLUCOSE (AUTOMATED)2019-09-13 19:19:00 Test Item Value Reference Range Interpretation Comments POCT GLU (test code = 9254358977) 211 mg/dL 70-110 H Lab Interpretation (test code = Abnormal 78502-2) [facility]13 15:27:00 Test Item Value Reference Range Interpretation Comments POCT GLU (test code = 6886813645) 267 mg/dL 70-110 H Lab Interpretation (test code = Abnormal 46317-6) [facility] (NA, K, CL, CO2, GLUCOSE, BUN, CREATININE, CA)2019-09-13 11:20:00 Test Item Value Reference Range Interpretation Comments NA (test code = 131 mmol/L 135-145 L 8138544686) K (test code = 3.6 mmol/L 3.5-5 1852617108) CL (test code = 98 mmol/L 98-108 1759773097) CO2 TOTAL (test code = 27 mmol/L 23-31 0798811510) AGAP (test code = 2-16 4220659063) BUN (test code = 9 mg/dL 7-23 3289447637) GLUCOSE (test code = 152 mg/dL 70-110 H 6785616440) CREATININE (test code = 0.48 mg/dL 0.6-1.25 L 1342223535) CALCIUM (test code = 8.6 mg/dL 8.6-10.6 7883411968) eGFR Calculation mL/min/1.73m2 (Non-) (test code = 6249547538) eGFR Calculation mL/min/1.73m2 () (test code = 8146302837) AIDAN (test code = AIDAN) Association of [...] tests). Lab Interpretation Abnormal (test code = 91672-6) [facility] GLUCOSE (AUTOMATED)2019-09-13 09:55:00 Test Item Value Reference Range Interpretation Comments POCT GLU (test code = 8375556588) 137 mg/dL 70-110 H Lab Interpretation (test code = Abnormal 10647-9) [facility] GLUCOSE (AUTOMATED)2019-09-13 06:04:00 Test Item Value Reference Range Interpretation Comments POCT GLU (test code = 4070649603) 117 mg/dL 70-110 H Lab Interpretation (test code = Abnormal 33299-3) [facility] GLUCOSE (AUTOMATED)2019-09-13 03:33:00 Test Item Value Reference Range Interpretation Comments POCT GLU (test code = 8459219318) 160 mg/dL 70-110 H Lab Interpretation (test code = Abnormal 84293-4) [facility] GLUCOSE (AUTOMATED)2019-09-12 23:34:00 Test Item Value Reference Range Interpretation Comments POCT GLU (test code = 161 mg/dL 70-110 H Notifi ed Provider 4295838489) Lab Interpretation (test Abnormal code = 63369-8) [facility] GLUCOSE (AUTOMATED)2019-09-12 23:05:00 Test Item Value Reference Range Interpretation Comments POCT GLU (test code = 7364175064) 150 mg/dL 70-110 H Lab Interpretation (test code = Abnormal 91623-2) [facility] GLUCOSE (AUTOMATED)2019-09-12 17:29:00 Test Item Value Reference Range Interpretation Comments POCT GLU (test code = 7192203261) 163 mg/dL 70-110 H Lab Interpretation (test code = Abnormal 12754-4) [facility] GLUCOSE (AUTOMATED)2019-09-12 13:49:00 Test Item Value Reference Range Interpretation Comments POCT GLU (test code = 8140426700) 182 mg/dL 70-110 H Lab Interpretation (test code = Abnormal 36225-3) [facility] Metabolic Panel (Na, K, Cl, CO2, Glucose, BUN, Creatinine, Ca)2019-09-12 11:58:00 Test Item Value Reference Range Interpretation Comments NA (test code = 135 mmol/L 135-145 9766398302) K (test code = 3.8 mmol/L 3.5-5 9214016440) CL (test code = 105 mmol/L 98-108 0229621074) CO2 TOTAL (test code = 25 mmol/L 23-31 6139879958) AGAP (test code = 2-16 2149391100) BUN (test code = 5 mg/dL 7-23 L 3099353670) GLUCOSE (test code = 80 mg/dL 70-110 2770111261) CREATININE (test code = 0.53 mg/dL 0.6-1.25 L 2592680654) CALCIUM (test code = 8.6 mg/dL 8.6-10.6 5760671002) eGFR Calculation mL/min/1.73m2 (Non-) (test code = 9044947051) eGFR Calculation mL/min/1.73m2 () (test code = 4390961660) AIDAN (test code = AIDAN) Association of [...] tests). Lab Interpretation Abnormal (test code = 16940-0) [facility] GLUCOSE (AUTOMATED)2019-09-12 10:30:00 Test Item Value Reference Range Interpretation Comments POCT GLU (test code = 7411286203) 175 mg/dL 70-110 H Lab Interpretation (test code = Abnormal 54212-1) [facility] GLUCOSE (AUTOMATED)2019-09-12 08:58:00 Test Item Value Reference Range Interpretation Comments POCT GLU (test code = 5145546047) 98 mg/dL 70-110 Lab Interpretation (test code = Normal 45222-1) [facility] Metabolic Panel (Na, K, Cl, CO2, Glucose, BUN, Creatinine, Ca)2019-09-12 06:43:00 Test Item Value Reference Range Interpretation Comments NA (test code = 134 mmol/L 135-145 L 7977936360) K (test code = 4.0 mmol/L 3.5-5 4173261926) CL (test code = 106 mmol/L 98-108 6908572069) CO2 TOTAL (test code = 22 mmol/L 23-31 L 1987940240) AGAP (test code = 2-16 3283901054) BUN (test code = 6 mg/dL 7-23 L 5409490168) GLUCOSE (test code = 250 mg/dL 70-110 H 9991708032) CREATININE (test code = 0.55 mg/dL 0.6-1.25 L 1471878875) CALCIUM (test code = 8.4 mg/dL 8.6-10.6 L 7705671009) eGFR Calculation mL/min/1.73m2 (Non-) (test code = 8150946030) eGFR Calculation mL/min/1.73m2 () (test code = 6086582698) AIDAN (test code = AIDAN) Association of [...] tests). Lab Interpretation Abnormal (test code = 19221-5) [facility] GLUCOSE (AUTOMATED)2019-09-12 05:44:00 Test Item Value Reference Range Interpretation Comments POCT GLU (test code = 6260263131) 250 mg/dL 70-110 H Lab Interpretation (test code = Abnormal 55450-8) [facility] GLUCOSE (AUTOMATED)2019-09-12 02:48:00 Test Item Value Reference Range Interpretation Comments POCT GLU (test code = 2548319414) 213 mg/dL 70-110 H Lab Interpretation (test code = Abnormal 30936-1) [facility] GLUCOSE (AUTOMATED)2019-09-11 23:39:00 Test Item Value Reference Range Interpretation Comments POCT GLU (test code = 0945653771) 216 mg/dL 70-110 H Lab Interpretation (test code = Abnormal 48636-4) [facility] GLUCOSE (AUTOMATED)2019-09-11 21:35:00 Test Item Value Reference Range Interpretation Comments POCT GLU (test code = 2725196701) 276 mg/dL 70-110 H Lab Interpretation (test code = Abnormal 77061-4) [facility] / MSSA Screen by Shirley [id number] 18:28:00 Test Item Value Reference Range Interpretation Comments MSSA Screen by Shirley VALIENTE (test code Negative Negative = 57754-8) MRSA/MSSA Positive? (test code = No No 9643347822) Lab Interpretation (test code = Normal 37542-3) [facility] GLUCOSE (AUTOMATED)2019-09-11 18:21:00 Test Item Value Reference Range Interpretation Comments POCT GLU (test code = 2494994148) 206 mg/dL 70-110 H Lab Interpretation (test code = Abnormal 74564-5) [facility]2019-09-11 17:12:00 Test Item Value Reference Range Interpretation Comments POCT GLU (test code = 6812389660) 194 mg/dL 70-110 H Lab Interpretation (test code = Abnormal 01134-3) [facility] Metabolic Panel (Na, K, Cl, CO2, Glucose, BUN, Creatinine, Ca)2019-09-11 16:29:00 Test Item Value Reference Range Interpretation Comments NA (test code = 134 mmol/L 135-145 L 1432017414) K (test code = 4.2 mmol/L 3.5-5 0156634653) CL (test code = 111 mmol/L 98-108 H 9558033135) CO2 TOTAL (test code = 21 mmol/L 23-31 L 3740061212) AGAP (test code = 2-16 5187817571) BUN (test code = 10 mg/dL 7-23 2092697736) GLUCOSE (test code = 184 mg/dL 70-110 H 4988836162) CREATININE (test code = 0.57 mg/dL 0.6-1.25 L 0658508702) CALCIUM (test code = 7.8 mg/dL 8.6-10.6 L 2312537903) eGFR Calculation mL/min/1.73m2 (Non-) (test code = 3198370831) eGFR Calculation mL/min/1.73m2 () (test code = 2102662432) AIDAN (test code = AIDAN) Association of [...] tests). Lab Interpretation Abnormal (test code = 25108-7) [facility] GLUCOSE (AUTOMATED)2019-09-11 16:02:00 Test Item Value Reference Range Interpretation Comments POCT GLU (test code = 8721854856) 182 mg/dL 70-110 H Lab Interpretation (test code = Abnormal 67573-4) [facility] GLUCOSE (AUTOMATED)2019-09-11 15:23:00 Test Item Value Reference Range Interpretation Comments POCT GLU (test code = 3215951079) 175 mg/dL 70-110 H Lab Interpretation (test code = Abnormal 48756-7) [facility] GLUCOSE (AUTOMATED)2019-09-11 15:21:00 Test Item Value Reference Range Interpretation Comments POCT GLU (test code = 9160225509) >600 70-110 HH Lab Interpretation (test code = Abnormal 28371-8) [facility] GLUCOSE (AUTOMATED)2019-09-11 15:21:00 Test Item Value Reference Range Interpretation Comments POCT GLU (test code = 3997321682) >600 70-110 HH Lab Interpretation (test code = Abnormal 61367-8) [facility] WITH [id number] 14:20:00 Test Item Value Reference Range Interpretation Comments WBC (test code = See_Comment H [Automated 5690-2) message] The system which generated this result [...] RDW-SD (test code = 48.5 fL 38.5-51.6 66620-9) RDW-CV (test code = 14.4 % 12.1-15.4 788-0) PLT (test code = See_Comment [Automated 777-3) message] The system which generated this result transmit todd reference range : 150 - 328 10*3/ ?L. The reference range was not u sed to interpret th is result as normal/abnormal . MPV (test code = 8.6 fL 9.8-13 L 76623-7) NRBC/100 WBC (test See_Comment [Automat ed code = 6185878121) message] The system which generated this result transmit todd reference range : 0.0 - 10.0 /100 WBCs. The reference range was not used to interpret this result as normal/abnormal . NRBC x10^3 (test code <0.01 See_Comment [Auto mated = 8172057962) message] The system which generated this result transmit todd reference range : 10*3/?L. The reference range was not used to interpret this result as normal/abnormal . GRAN MAT (NEUT) % 89.1 % (test code = 770-8) IMM GRAN % (test code 0.40 % = 8336015557) LYMPH % (test code = 5.2 % 736-9) MONO % (test code = 4.7 % 5905-5) EOS % (test code = 0.5 % 713-8) BASO % (test code = 0.1 % 706-2) GRAN MAT x10^3(ANC) 12.06 10*3/uL 1.99-6.95 H (test code = 1929379927) IMM GRAN x10^3 (test 0.05 10*3/uL 0-0.06 code = 3766675999) LYMPH x10^3 (test code 0.70 10*3/uL 1.09-3.23 L = 731-0) MONO x10^3 (test code 0.64 10*3/uL 0.36-1.02 = 742-7) EOS x10^3 (test code = 0.07 10*3/uL 0.06-0.53 711-2) BASO x10^3 (test code <0.03 0.01-0.09 = 704-7) Lab Interpretation Abnormal (test code = 65366-9) [facility] GLUCOSE (AUTOMATED)2019-09-11 14:06:00 Test Item Value Reference Range Interpretation Comments POCT GLU (test code = 0763716215) 169 mg/dL 70-110 H Lab Interpretation (test code = Abnormal 94926-1) [facility] GLUCOSE (AUTOMATED)2019-09-11 13:16:00 Test Item Value Reference Range Interpretation Comments POCT GLU (test code = 4734869378) 144 mg/dL 70-110 H Lab Interpretation (test code = Abnormal 17654-8) [facility] Metabolic Panel (Na, K, Cl, CO2, Glucose, BUN, Creatinine, Ca)2019-09-11 12:52:00 Test Item Value Reference Range Interpretation Comments NA (test code = 137 mmol/L 135-145 5806310697) K (test code = 4.1 mmol/L 3.5-5 8680464456) CL (test code = 113 mmol/L 98-108 H 0849298610) CO2 TOTAL (test code = 19 mmol/L 23-31 L 8488652453) AGAP (test code = 2-16 0137433280) BUN (test code = 12 mg/dL 7-23 1384084423) GLUCOSE (test code = 126 mg/dL 70-110 H 2421935612) CREATININE (test code = 0.60 mg/dL 0.6-1.25 9869993451) CALCIUM (test code = 8.2 mg/dL 8.6-10.6 L 4342469458) eGFR Calculation mL/min/1.73m2 (Non-) (test code = 6771052208) eGFR Calculation mL/min/1.73m2 () (test code = 7711435092) AIDAN (test code = AIDAN) Association of [...] tests). Lab Interpretation Abnormal (test code = 75126-7) [facility] GLUCOSE (AUTOMATED)2019-09-11 12:18:00 Test Item Value Reference Range Interpretation Comments POCT GLU (test code = 6873704015) 127 mg/dL 70-110 H Lab Interpretation (test code = Abnormal 13314-7) [facility] GLUCOSE (AUTOMATED)2019-09-11 11:17:00 Test Item Value Reference Range Interpretation Comments POCT GLU (test code = 7845511649) 143 mg/dL 70-110 H Lab Interpretation (test code = Abnormal 33384-1) [facility] GLUCOSE (AUTOMATED)2019-09-11 10:15:00 Test Item Value Reference Range Interpretation Comments POCT GLU (test code = 7486751874) 165 mg/dL 70-110 H Lab Interpretation (test code = Abnormal 46664-6) [facility] GLUCOSE (AUTOMATED)2019-09-11 09:05:00 Test Item Value Reference Range Interpretation Comments POCT GLU (test code = 8229535206) 189 mg/dL 70-110 H Lab Interpretation (test code = Abnormal 88158-8) [facility] Metabolic Panel (Na, K, Cl, CO2, Glucose, BUN, Creatinine, Ca)2019-09-11 08:50:00 Test Item Value Reference Range Interpretation Comments NA (test code = 137 mmol/L 135-145 7777877319) K (test code = 4.2 mmol/L 3.5-5 5569557673) CL (test code = 114 mmol/L 98-108 H 2694284834) CO2 TOTAL (test code = 18 mmol/L 23-31 L 8913803697) AGAP (test code = 2-16 8720290340) BUN (test code = 13 mg/dL 7-23 1656336485) GLUCOSE (test code = 207 mg/dL 70-110 H 1305934400) CREATININE (test code = 0.63 mg/dL 0.6-1.25 1359372962) CALCIUM (test code = 7.9 mg/dL 8.6-10.6 L 2747425386) eGFR Calculation mL/min/1.73m2 (Non-) (test code = 0014987249) eGFR Calculation mL/min/1.73m2 () (test code = 1888244798) AIDAN (test code = AIDAN) Association of [...] tests). Lab Interpretation Abnormal (test code = 71032-4) [facility] GLUCOSE (AUTOMATED)2019-09-11 08:13:00 Test Item Value Reference Range Interpretation Comments POCT GLU (test code = 6624243129) 213 mg/dL 70-110 H Lab Interpretation (test code = Abnormal 26078-1) [facility] [id number] 07:25:00 Test Item Value Reference Range Interpretation Comments SPUTUM CULTURE (test Specimen cellular code = 622-1) elements do not represent lower respiratory tract. Specimen rejected for routine bacterial culture. Suggest reorder and recollection. [facility] GLUCOSE (AUTOMATED)2019-09-11 07:15:00 Test Item Value Reference Range Interpretation Comments POCT GLU (test code = 9553884858) 215 mg/dL 70-110 H Lab Interpretation (test code = Abnormal 40681-5) [facility] GLUCOSE (AUTOMATED)2019-09-11 06:21:00 Test Item Value Reference Range Interpretation Comments POCT GLU (test code = 8705782028) 230 mg/dL 70-110 H Lab Interpretation (test code = Abnormal 12960-7) [facility] GLUCOSE (AUTOMATED)2019-09-11 05:13:00 Test Item Value Reference Range Interpretation Comments POCT GLU (test code = 2623214241) 201 mg/dL 70-110 H Lab Interpretation (test code = Abnormal 32804-6) [facility] Metabolic Panel (Na, K, Cl, CO2, Glucose, BUN, Creatinine, Ca)2019-09-11 04:48:00 Test Item Value Reference Range Interpretation Comments NA (test code = 136 mmol/L 135-145 0716867055) K (test code = 4.3 mmol/L 3.5-5 6750648789) CL (test code = 114 mmol/L 98-108 H 9026179702) CO2 TOTAL (test code = 17 mmol/L 23-31 L 5712064136) AGAP (test code = 2-16 4558715306) BUN (test code = 15 mg/dL 7-23 9208398229) GLUCOSE (test code = 165 mg/dL 70-110 H 2990136667) CREATININE (test code = 0.66 mg/dL 0.6-1.25 5580693714) CALCIUM (test code = 8.0 mg/dL 8.6-10.6 L 0610608747) eGFR Calculation mL/min/1.73m2 (Non-) (test code = 0590797160) eGFR Calculation mL/min/1.73m2 () (test code = 8001655582) AIDAN (test code = AIDAN) Association of [...] tests). Lab Interpretation Abnormal (test code = 55019-2) [facility] GLUCOSE (AUTOMATED)2019-09-11 04:11:00 Test Item Value Reference Range Interpretation Comments POCT GLU (test code = 6609420384) 174 mg/dL 70-110 H Lab Interpretation (test code = Abnormal 31284-2) [facility] GLUCOSE (AUTOMATED)2019-09-11 03:17:00 Test Item Value Reference Range Interpretation Comments POCT GLU (test code = 5304260520) 148 mg/dL 70-110 H Lab Interpretation (test code = Abnormal 52871-4) [facility] GLUCOSE (AUTOMATED)2019-09-11 03:02:00 Test Item Value Reference Range Interpretation Comments POCT GLU (test code = 8192530636) 168 mg/dL 70-110 H Lab Interpretation (test code = Abnormal 25487-2) [facility] GLUCOSE (AUTOMATED)2019-09-11 02:30:00 Test Item Value Reference Range Interpretation Comments POCT GLU (test code = 0364619241) 63 mg/dL 70-110 L Lab Interpretation (test code = Abnormal 23816-4) [facility] GLUCOSE (AUTOMATED)2019-09-11 02:22:00 Test Item Value Reference Range Interpretation Comments POCT GLU (test code = 8916077320) 77 mg/dL 70-110 Lab Interpretation (test code = Normal 59207-7) [facility] (Na, K, Cl, CO2, Glucose, BUN, Creatinine, Ca)2019-09-11 00:27:00 Test Item Value Reference Range Interpretation Comments NA (test code = 140 mmol/L 135-145 7475118904) K (test code = 3.8 mmol/L 3.5-5 2592884619) CL (test code = 116 mmol/L 98-108 H 4924302673) CO2 TOTAL (test code = 18 mmol/L 23-31 L 3116361537) AGAP (test code = 2-16 8730391951) BUN (test code = 17 mg/dL 7-23 2099588067) GLUCOSE (test code = 175 mg/dL 70-110 H 9179511751) CREATININE (test code = 0.69 mg/dL 0.6-1.25 6611058722) CALCIUM (test code = 8.0 mg/dL 8.6-10.6 L 6995110080) eGFR Calculation mL/min/1.73m2 (Non-) (test code = 1539474802) eGFR Calculation mL/min/1.73m2 () (test code = 1740029695) AIDAN (test code = AIDAN) Association of [...] tests). Lab Interpretation Abnormal (test code = 72162-9) [facility] (for use with Heparin Practice Guideline). Note: Draw and Send all Lab STAT.2019-09-11 00:13:00 Test Item Value Reference Range Interpretation Comments APTT Patient (test code See_Comment H [Au tomated message] = 3173-2) The system wedgies generated this result transmitted ref erence range: 26 - 36 Seconds. The reference range was not used to int erpret this result as normal/abnormal . Lab Interpretation (test Abnormal code = 15354-0) [facility] GLUCOSE (AUTOMATED)2019-09-11 00:00:00 Test Item Value Reference Range Interpretation Comments POCT GLU (test code = 2069157563) 172 mg/dL 70-110 H Lab Interpretation (test code = Abnormal 46136-2) [facility] GLUCOSE (AUTOMATED)2019-09-10 22:39:00 Test Item Value Reference Range Interpretation Comments POCT GLU (test code = 8256396606) 229 mg/dL 70-110 H Lab Interpretation (test code = Abnormal 31409-4) [facility] [id number] 21:32:00 Test Item Value Reference Range Interpretation Comments TROPONIN I (test 0.123 ng/mL See_Comment H [Automated code = 1681540390) message] The system which generated this result [...] ? Lab Interpretation Abnormal (test code = 52106-5) [facility] Met[facility] (Na, K, Cl, CO2, Glucose, BUN, Creatinine, Ca)2019-09-10 21:32:00 Test Item Value Reference Range Interpretation Comments NA (test code = 141 mmol/L 135-145 6530861373) K (test code = 3.6 mmol/L 3.5-5 3956794158) CL (test code = 120 mmol/L 98-108 H 7791623806) CO2 TOTAL (test code = 13 mmol/L 23-31 L 3588978447) AGAP (test code = 2-16 7804323071) BUN (test code = 16 mg/dL 7-23 1913666619) GLUCOSE (test code = 240 mg/dL 70-110 H 7137904727) CREATININE (test code = 0.63 mg/dL 0.6-1.25 3247010301) CALCIUM (test code = 6.8 mg/dL 8.6-10.6 L 1550845586) eGFR Calculation mL/min/1.73m2 (Non-) (test code = 7229899978) eGFR Calculation mL/min/1.73m2 () (test code = 2982483483) AIDAN (test code = AIDAN) Association of [...] tests). Lab Interpretation Abnormal (test code = 17319-0) [facility] PANEL 21 + LACTIC [id number] 21:06:00 Test Item Value Reference Range Interpretation Comments PH (test code = 7.32-7.42 L 9550335497) PCO2 CHEMO (test code = See_Comment L [Auto mated 0664151257) message] The sy stem which generated this result transmitted reference range : 41 - 51 mmHg. The reference range was not used to interpret this result as normal/abnormal . PO2 CHEMO (test code = See_Comment HH [Autom ated 2395753250) message] The sy stem which generated this result transmitted reference range : 25 - 40 mmHg. The reference range was not used to interpret this result as normal/abnormal . HCO3 CHEMO (test code = See_Comment L [Auto mated 3406164476) message] The sy stem which generated this result transmitted reference range : 24 - 28 mEq/L. The reference range was not used to interpret this result as normal/abnormal . AC VBE(BEAKER) (test mEq/L code = 9318064745) THB CHEMO (test code = 11.4 g/dL 13.5-18 L 1321721868) %O2HB CHEMO (test code = 97.3 % 52-63 H 4731517358) %COHB CHEMO (test code = 0.3 % 0-1.5 6245848952) %METHB CHEMO (test code = 0.6 % 0.4-1.5 0337906444) VOL%O2 CHEMO (test code = 15.9 % 6-12 H 5761206386) NA (test code = 138 mmol/L 135-145 1624288832) K+ (test code = 4.1 mmol/L 3.5-5 9454138429) AC CA IONZ (test code = 5.00 mg/dL 4.5-5.3 1307199041) GLUCOSE (test code = 283 mg/dL 70-110 H 1724974745) LACTIC ACID (test code 0.99 mmol/L 0.5-2.2 = 0115462693) Lab Interpretation Abnormal (test code = 15438-7) [facility]2019-09-10 20:57:00 Test Item Value Reference Range Interpretation Comments POCT GLU (test code = 2065526540) 253 mg/dL 70-110 H Lab Interpretation (test code = Abnormal 40157-3) [facility] [id number] 18:17:00 Test Item Value Reference Range Interpretation Comments TROPONIN I (test 0.240 ng/mL See_Comment H [Automated code = 6355264621) message] The system which generated this result [...] ? Lab Interpretation Abnormal (test code = 82506-7) [facility] Met[facility] Panel (Na, K, Cl, CO2, Glucose, BUN, Creatinine, Ca)2019-09-10 18:06:00 Test Item Value Reference Range Interpretation Comments NA (test code = 141 mmol/L 135-145 9638227567) K (test code = 4.5 mmol/L 3.5-5 1614064695) CL (test code = 117 mmol/L 98-108 H 9281042757) CO2 TOTAL (test code = 15 mmol/L 23-31 L 1260277874) AGAP (test code = 2-16 7563443469) BUN (test code = 20 mg/dL 7-23 2227172585) GLUCOSE (test code = 209 mg/dL 70-110 H 3343633160) CREATININE (test code = 0.82 mg/dL 0.6-1.25 3699728534) CALCIUM (test code = 8.0 mg/dL 8.6-10.6 L 8645992678) eGFR Calculation mL/min/1.73m2 (Non-) (test code = 9247494002) eGFR Calculation mL/min/1.73m2 () (test code = 3674611348) AIDAN (test code = AIDAN) Association of [...] tests). Lab Interpretation Abnormal (test code = 95171-2) [facility] Worth[facility]thrombin Time (PT) / [id number] 17:59:00 Test Item Value Reference Range Interpretation Comments PROTIME PATIENT (test See_Comment [Auto mated message] code = 5964-2) The system [employer] generated this result transmitted ref erence range: 10.1 - 1 2.6 Seconds. The re ference range was not u sed to interpret this result as normal/abnor mal. INR (test code = 6301-6) Nor mal INR <1.1; Warfarin Therap eutic range 2.0 to 3. 0 or 2.5 to 3.5, dep ending upon the indica tions. Lab Interpretation (test Normal code = 05788-3) [facility] WorthaPTT2020-02-16 17:59:00 Test Item Value Reference Range Interpretation Comments APTT Patient (test code = See_Comment [ Automated message] 3173-2) The system wedgies generated this result transmitted ref erence range: 26 - 36 Seconds. The re ference range was not u sed to interpret this result as normal/abnor mal. Lab Interpretation (test Normal code = 87474-7) [facility]2019-09-10 13:59:00 Test Item Value Reference Range Interpretation Comments POCT GLU (test code = 8588833094) 248 mg/dL 70-110 H Lab Interpretation (test code = Abnormal 02082-8) [facility] WorthABG+COOX+NA+K+GLU+CA2+2019-09-10 13:51:00 Test Item Value Reference Range Interpretation Comments PH (test code = 2) 7.35-7.45 L PCO2 (test code = See_Comment L [Automate d message] 2100416195) The system wedgies generated this result transmit todd reference range : 35 - 45 mmHg. The reference range was not used to interpret this result as normal/abnormal . PO2 (test code = See_Comment H [Automated message] 4122971841) The system wedgies generated this result transmit todd reference range : 80 - 100 mmHg. The reference range was not used to interpret this result as normal/abnormal . HCO3 (test code = See_Comment L [Automate d message] 9482237563) The system wedgies generated this result transmit todd reference range : 22 - 26 mEq/L. The reference range was not used to interpret this result as normal/abnormal . BE (test code = See_Comment L [Automated message] 5483982109) The system wedgies generated this result transmit todd reference range : -3.0 - 3.0 mEq/ L. The reference r elvin was not used to interpret this result as normal/abnormal . THB (test code = 11.2 g/dL 13.5-18 L 8618641512) %O2HB (test code = 97.8 % 94-99 7104692669) %COHB ART (test code = 0.3 % 0-1.5 4524914829) %METHB ART (test code = 0.2 % 0.4-1.5 L 8730285248) VOL%O2 ART (test code = 15.8 % 15-23 7672378424) NA (test code = 139 mmol/L 135-145 2551460963) K+ (test code = 4.4 mmol/L 3.5-5 0782550137) AC CA IONZ (test code = 5.00 mg/dL 4.5-5.3 3562252640) GLUCOSE (test code = 268 mg/dL 70-110 H 6516401683) Lab Interpretation Abnormal (test code = 71298-0) [facility] WorthJAX [id number] 13:32:00 Test Item Value Reference Range Interpretation Comments TROPONIN I (test 0.356 ng/mL See_Comment H [Automated code = 3523413970) message] The system which generated this result [...] ? Lab Interpretation Abnormal (test code = 58030-4) [facility] Met[facility] (Na, K, Cl, CO2, Glucose, BUN, Creatinine, Ca)2019-09-10 13:20:00 Test Item Value Reference Range Interpretation Comments NA (test code = 141 mmol/L 135-145 7033971346) K (test code = 4.4 mmol/L 3.5-5 3532979093) CL (test code = 120 mmol/L 98-108 H 9224834863) CO2 TOTAL (test code = 12 mmol/L 23-31 L 9505045043) AGAP (test code = 2-16 7111929268) BUN (test code = 20 mg/dL 7-23 0247198786) GLUCOSE (test code = 236 mg/dL 70-110 H 8472976978) CREATININE (test code = 0.69 mg/dL 0.6-1.25 4770867759) CALCIUM (test code = 7.0 mg/dL 8.6-10.6 L 6182306876) eGFR Calculation mL/min/1.73m2 (Non-) (test code = 2997542667) eGFR Calculation mL/min/1.73m2 () (test code = 0092463411) AIDAN (test code = AIDAN) Association of [...] tests). Lab Interpretation Abnormal (test code = 47565-9) [facility] GLUCOSE (AUTOMATED)2019-09-10 12:24:00 Test Item Value Reference Range Interpretation Comments POCT GLU (test code = 0184175763) 243 mg/dL 70-110 H Lab Interpretation (test code = Abnormal 10817-5) [facility] GLUCOSE(AGE >30DAYS)2019-09-10 12:15:00 Test Item Value Reference Range Interpretation Comments POCT Glu (age>30days) (test code = 243 mg/dL 70-110 A 3342) Lab Interpretation (test code = Abnormal 70418-0) [facility] Metabolic Panel (Na, K, Cl, CO2, Glucose, BUN, Creatinine, Ca)2019-09-10 10:35:00 Test Item Value Reference Range Interpretation Comments NA (test code = 140 mmol/L 135-145 2821962429) K (test code = 4.4 mmol/L 3.5-5 9396418409) CL (test code = 119 mmol/L 98-108 H 4649702414) CO2 TOTAL (test code = 13 mmol/L 23-31 L 8559657588) AGAP (test code = 2-16 5726850498) BUN (test code = 20 mg/dL 7-23 8276811693) GLUCOSE (test code = 163 mg/dL 70-110 H 3372140725) CREATININE (test code = 0.77 mg/dL 0.6-1.25 8589573429) CALCIUM (test code = 7.7 mg/dL 8.6-10.6 L 1929446534) eGFR Calculation mL/min/1.73m2 (Non-) (test code = 1386579188) eGFR Calculation mL/min/1.73m2 () (test code = 8019019776) AIDAN (test code = AIDAN) Association of [...] tests). Lab Interpretation Abnormal (test code = 74405-7) [facility]10 10:23:00 Test Item Value Reference Range Interpretation Comments POCT GLU (test code = 1925790608) 357 mg/dL 70-110 H Lab Interpretation (test code = Abnormal 58912-3) [facility] GLUCOSE (AUTOMATED)2019-09-10 10:23:00 Test Item Value Reference Range Interpretation Comments POCT GLU (test code = 9182545546) 186 mg/dL 70-110 H Lab Interpretation (test code = Abnormal 12488-0) [facility] GLUCOSE(AGE >30DAYS)2019-09-10 10:15:00 Test Item Value Reference Range Interpretation Comments POCT Glu (age>30days) (test code = 186 mg/dL 70-110 A 3342) Lab Interpretation (test code = Abnormal 43708-7) [facility] GLUCOSE (AUTOMATED)2019-09-10 08:47:00 Test Item Value Reference Range Interpretation Comments POCT GLU (test code = 2825085775) 142 mg/dL 70-110 H Lab Interpretation (test code = Abnormal 76882-4) [facility] GLUCOSE (AUTOMATED)2019-09-10 07:44:00 Test Item Value Reference Range Interpretation Comments POCT GLU (test code = 2360042147) 163 mg/dL 70-110 H Lab Interpretation (test code = Abnormal 81474-7) [facility] Metabolic Panel (Na, K, Cl, CO2, Glucose, BUN, Creatinine, Ca)2019-09-10 07:43:00 Test Item Value Reference Range Interpretation Comments NA (test code = 140 mmol/L 135-145 9684541643) K (test code = 5.0 mmol/L 3.5-5 Slight 3273623794) hemolysis CL (test code = 114 mmol/L 98-108 H 0870762181) CO2 TOTAL (test code 18 mmol/L 23-31 L = 3030810717) AGAP (test code = 2-16 7957248994) BUN (test code = 24 mg/dL 7-23 H Slight 9758735841) hemolysis GLUCOSE (test code = 172 mg/dL 70-110 H 3350873702) CREATININE (test code 0.89 mg/dL 0.6-1.25 = 5085407691) CALCIUM (test code = 9.2 mg/dL 8.6-10.6 1487075077) eGFR Calculation mL/min/1.73m2 (Non-) (test code = 6996868295) eGFR Calculation mL/min/1.73m2 () (test code = 4203073481) AIDAN (test code = AIDAN) Association of [...] tests). Lab Interpretation Abnormal (test code = 50145-4) [facility] GLUCOSE(AGE >30DAYS)2019-09-10 07:40:00 Test Item Value Reference Range Interpretation Comments POCT Glu (age>30days) (test code = 163 mg/dL 70-110 A 3342) Lab Interpretation (test code = Abnormal 95466-0) [facility] GLUCOSE (AUTOMATED)2019-09-10 07:01:00 Test Item Value Reference Range Interpretation Comments POCT GLU (test code = 4233718159) 179 mg/dL 70-110 H Lab Interpretation (test code = Abnormal 35436-0) [facility] GLUCOSE(AGE >30DAYS)2019-09-10 06:40:00 Test Item Value Reference Range Interpretation Comments POCT Glu (age>30days) (test code = 179 mg/dL 70-110 A 3342) Lab Interpretation (test code = Abnormal 21664-8) [facility] GLUCOSE (AUTOMATED)2019-09-10 05:37:00 Test Item Value Reference Range Interpretation Comments POCT GLU (test code = 7038093939) 223 mg/dL 70-110 H Lab Interpretation (test code = Abnormal 73601-4) [facility] GLUCOSE(AGE >30DAYS)2019-09-10 05:35:00 Test Item Value Reference Range Interpretation Comments POCT Glu (age>30days) (test code = 223 mg/dL 70-110 A 3342) Lab Interpretation (test code = Abnormal 72102-5) [facility] Metabolic Panel (Na, K, Cl, CO2, Glucose, BUN, Creatinine, Ca)2019-09-10 04:36:00 Test Item Value Reference Range Interpretation Comments NA (test code = 139 mmol/L 135-145 8475448924) K (test code = 5.0 mmol/L 3.5-5 Slight 7043425638) hemolysis CL (test code = 111 mmol/L 98-108 H 1574447668) CO2 TOTAL (test code 15 mmol/L 23-31 L = 8692633698) AGAP (test code = 2-16 9937803065) BUN (test code = 24 mg/dL 7-23 H Slight 4474566176) hemolysis GLUCOSE (test code = 282 mg/dL 70-110 H 3807232903) CREATININE (test code 0.98 mg/dL 0.6-1.25 = 9770064607) CALCIUM (test code = 9.8 mg/dL 8.6-10.6 0889331262) eGFR Calculation mL/min/1.73m2 (Non-) (test code = 0049047051) eGFR Calculation mL/min/1.73m2 () (test code = 7940293450) AIDAN (test code = AIDAN) Association of [...] tests). Lab Interpretation Abnormal (test code = 21110-7) [facility] GLUCOSE (AUTOMATED)2019-09-10 04:34:00 Test Item Value Reference Range Interpretation Comments POCT GLU (test code = 7088487740) 277 mg/dL 70-110 H Lab Interpretation (test code = Abnormal 37361-6) [facility] GLUCOSE(AGE >30DAYS)2019-09-10 04:30:00 Test Item Value Reference Range Interpretation Comments POCT Glu (age>30days) (test code = 277 mg/dL 70-110 A 3342) Lab Interpretation (test code = Abnormal 81068-2) [facility] GLUCOSE (AUTOMATED)2019-09-10 03:14:00 Test Item Value Reference Range Interpretation Comments POCT GLU (test code = 2967180968) 323 mg/dL 70-110 H Lab Interpretation (test code = Abnormal 28841-0) [facility] GLUCOSE(AGE >30DAYS)2019-09-10 03:00:00 Test Item Value Reference Range Interpretation Comments POCT Glu (age>30days) (test code = 323 mg/dL 70-110 A 3342) Lab Interpretation (test code = Abnormal 00996-6) [facility]OO[facility]+NA+K+GLU+CA2+2019-09-10 01:52:00 Test Item Value Reference Range Interpretation Comments PH (test code = 2) 7.35-7.45 LL PCO2 (test code = See_Comment L [Automate d message] 8121163663) The system [employer] generated this result transmit todd reference range : 35 - 45 mmHg. The reference range was not used to interpret this result as normal/abnormal . PO2 (test code = See_Comment H [Automated message] 3466456865) The system [employer] generated this result transmit todd reference range : 80 - 100 mmHg. The reference range was not used to interpret this result as normal/abnormal . HCO3 (test code = See_Comment L [Automate d message] 3863076227) The system [employer] generated this result transmit todd reference range : 22 - 26 mEq/L. The reference range was not used to interpret this result as normal/abnormal . BE (test code = See_Comment L [Automated message] 2651273200) The system [employer] generated this result transmit todd reference range : -3.0 - 3.0 mEq/ L. The reference r elvin was not used to interpret this result as normal/abnormal . THB (test code = 12.7 g/dL 13.5-18 L 1073045553) %O2HB (test code = 98.2 % 94-99 9329477511) %COHB ART (test code = 0.3 % 0-1.5 6765882800) %METHB ART (test code = 0.2 % 0.4-1.5 L 3520708370) VOL%O2 ART (test code = 18.1 % 15-23 6602198918) NA (test code = 137 mmol/L 135-145 5143445739) K+ (test code = 4.3 mmol/L 3.5-5 4619479184) AC CA IONZ (test code = 5.50 mg/dL 4.5-5.3 H 9257912256) GLUCOSE (test code = 394 mg/dL 70-110 H 1931138070) Lab Interpretation Abnormal (test code = 45526-8) [facility] WorthXR [id number] 01:39:32 Right common femoral vein central venous [...] identified. A Casanova catheter overlies the pelvis. [facility], Radiant Results Inft User - 09/09/2019 7:40 [...] this study and agree with theabove report. [facility] Worth[facility] Met[facility] (Na, K, Cl, CO2, Glucose, BUN, Creatinine, Ca)2019-09-10 01:14:00 Test Item Value Reference Range Interpretation Comments NA (test code = 139 mmol/L 135-145 1779588453) K (test code = 4.1 mmol/L 3.5-5 6511243504) CL (test code = 107 mmol/L 98-108 8787105250) CO2 TOTAL (test code = 11 mmol/L 23-31 L 7833542669) AGAP (test code = 2-16 H 3290600442) BUN (test code = 22 mg/dL 7-23 3725525909) GLUCOSE (test code = 439 mg/dL 70-110 H 3345820653) CREATININE (test code = 1.04 mg/dL 0.6-1.25 4650400010) CALCIUM (test code = 9.6 mg/dL 8.6-10.6 6080855629) eGFR Calculation mL/min/1.73m2 (Non-) (test code = 8890650741) eGFR Calculation mL/min/1.73m2 () (test code = 3322418009) AIDAN (test code = AIDAN) Association of [...] tests). Lab Interpretation Abnormal (test code = 49237-6) [facility]2019-09-10 00:33:00 Test Item Value Reference Range Interpretation Comments POCT GLU (test code = 6667986794) 417 mg/dL 70-110 H Lab Interpretation (test code = Abnormal 07877-3) [facility] WorthTROPONIN [id number] 00:04:00 Test Item Value Reference Range Interpretation Comments TROPONIN I (test 0.058 ng/mL See_Comment H [Automated code = 1958277977) message] The system which generated this result [...] ? Lab Interpretation Abnormal (test code = 68558-5) [facility] WorthXR CHEST 1 [id number] 00:00:57 Tip of the endotracheal tube projects [...] exam. Defibrillator padsproject over the left chest. [facility], Radiant Results Inft User - 09/09/2019 6:02 [...] reviewed this study and agree with theabove report.[facility] Gyxebpzkibx-Wlxfrpgu6141-11-15 23:40:00 Test Item Value Reference Range Interpretation Comments BOH (test code = >9.0 mmol/L 1866664371) AIDAN (test code = Normal Ranges: ? ? AIDAN) Nonfasting ? Less than 0.1 mmol/L ? ? Overnight Fast ? ? ? Less than 0.4 mmol/L ? ? Fasting (1-2 weeks) ?6-8 mmol/L Test developed and characteristics determined by [facility] Laboratory Services. [facility] WorthLactic Acid Whole Gsjcy1247-10-14 23:36:00 Test Item Value Reference Range Interpretation Comments LACTIC ACID (test code = 2.71 mmol/L 0.5-2.2 H 7927158857) Lab Interpretation (test code = Abnormal 30530-7) [facility] Worth[facility]ATED)2019-09-09 23:24:00 Test Item Value Reference Range Interpretation Comments POCT GLU (test code = 1534917163) 482 mg/dL 70-110 HH Lab Interpretation (test code = Abnormal 71837-4) [facility] WorthGlycosylated Hemoglobin (A1C)2019-09-09 23:08:00 Test Item Value Reference Range Interpretation Comments HGB A1C (test code = 4548-4) 10.0 % 4-6 H Lab Interpretation (test code = Abnormal 03673-2) [facility] WorthABG+COOX+NA+K+GLU+CA2+2019-09-09 22:49:00 Test Item Value Reference Range Interpretation Comments PH (test code = 2) 7.35-7.45 LL PCO2 (test code = See_Comment L [Automate d message] 9396592591) The system wedgies generated this result transmit todd reference range : 35 - 45 mmHg. The reference range was not used to interpret this result as normal/abnormal . PO2 (test code = See_Comment H [Automated message] 2915668368) The system wedgies generated this result transmit todd reference range : 80 - 100 mmHg. The reference range was not used to interpret this result as normal/abnormal . HCO3 (test code = See_Comment L [Automate d message] 0171800283) The system wedgies generated this result transmit todd reference range : 22 - 26 mEq/L. The reference range was not used to interpret this result as normal/abnormal . BE (test code = See_Comment L [Automated message] 2805171338) The system wedgies generated this result transmit todd reference range : -3.0 - 3.0 mEq/ L. The reference r elvin was not used to interpret this result as normal/abnormal . THB (test code = 13.6 g/dL 13.5-18 5562548457) %O2HB (test code = 96.9 % 94-99 3892644605) %COHB ART (test code = 0.3 % 0-1.5 1688969564) %METHB ART (test code = 0.3 % 0.4-1.5 L 2032488532) VOL%O2 ART (test code = 18.8 % 15-23 7120408191) NA (test code = 138 mmol/L 135-145 8552079659) K+ (test code = 4.2 mmol/L 3.5-5 0667980918) AC CA IONZ (test code = 5.70 mg/dL 4.5-5.3 H 4925948211) GLUCOSE (test code = 543 mg/dL 70-110 HH 9774771971) Lab Interpretation Abnormal (test code = 63740-0) [facility] Metabolic Panel (Na, K, Cl, CO2, Glucose, BUN, Creatinine, Ca)2019-09-09 22:48:00 Test Item Value Reference Range Interpretation Comments NA (test code = 134 mmol/L 135-145 L 0908882397) K (test code = 6.4 mmol/L 3.5-5 HH 1894306893) CL (test code = 101 mmol/L 98-108 3450596201) CO2 TOTAL (test code = 9 mmol/L 23-31 L 1397088935) AGAP (test code = 2-16 H 0452001532) BUN (test code = 23 mg/dL 7-23 0285643333) GLUCOSE (test code = 653 mg/dL 70-110 HH 1957439691) CREATININE (test code = 1.14 mg/dL 0.6-1.25 3608194569) CALCIUM (test code = 8.6 mg/dL 8.6-10.6 1574816841) eGFR Calculation mL/min/1.73m2 (Non-) (test code = 7024745484) eGFR Calculation mL/min/1.73m2 () (test code = 3894359367) AIDAN (test code = AIDAN) Association of [...] tests). Lab Interpretation Abnormal (test code = 72484-3) [facility] WorthOsmolality [id number] 22:35:00 Test Item Value Reference Range Interpretation Comments OSMOLALITY (test code = See_Comment HH [Au tomated message] 2722817057) The system wedgies generated this result transmitted ref erence range: 278 - 30 5 mOsm/kg. The reference range was not used to int erpret this result as normal/abnormal . Lab Interpretation (test Abnormal code = 31125-9) [facility] WorthMagnesium [id number] 22:34:00 Test Item Value Reference Range Interpretation Comments MAGNESIUM (test code = 1672797535) 2.1 mg/dL 1.7-2.4 Lab Interpretation (test code = Normal 72681-3) [facility] WorthPhosphorus [id number] 22:34:00 Test Item Value Reference Range Interpretation Comments PHOSPHORUS (test code = 1970008287) 6.6 mg/dL 2.5-5 H Lab Interpretation (test code = Abnormal 98449-5) [facility] WorthXR CHEST 1 [id number] 22:27:15 No acute cardiopulmonary abnormality. Preliminary Report [...] reviewed this study and agree with the abovereport.[facility] Pwjkqwstgm3411-67-49 22:20:00 Test Item Value Reference Range Interpretation Comments APPEARANCE (test code = Clear Clear 0584042403) COLOR (test code = Straw Yellow A 5313269068) PH (test code = 4.8-8.0 0985489783) SP GRAVITY (test code = 1.003-1.030 7121576400) GLU U QUAL (test code = 500 mg/dL Normal A 8824290607) BLOOD (test code = Negative Negative 6783087251) KETONES (test code = 80 mg/dL Negative A 1933012875) PROTEIN (test code = Negative Negative 2887-8) UROBILIN (test code = Normal Normal 8104912228) BILIRUBIN (test code = Negative Negative 5128293923) NITRITE (test code = Negative Negative 6629810469) LEUK SHEN (test code = Negative Negative 6744422786) RBC/HPF (test code = See_Comment [Autom ated message] 8030603566) The system wedgies generated this result transmit todd reference range : 0 - 3 HPF. The refe rence range was not u sed to interpret th is result as normal/abnormal . WBC/HPF (test code = See_Comment [Autom ated message] 5391490275) The system wedgies generated this result transmit todd reference range : 0 - 5 HPF. The refe rence range was not u sed to interpret th is result as normal/abnormal . BACTERIA (test code = Negative Negative 5345043202) MUCOUS (test code = Slight Negative LPF A 5760363575) SQ EPITH (test code = <1 See_Comment [Auto mated message] 4785649553) The system wedgies generated this result transmit todd reference range : <=2 HPF. The refere nce range was not u sed to interpret th is result as normal/abnormal . Lab Interpretation (test Abnormal code = 08204-4) [facility] Worth[facility] GLUCOSE(AGE >30DAYS)2019-09-09 22:10:00 Test Item Value Reference Range Interpretation Comments POCT Glu (age>30days) (test code = HI 70-110 3342) Lab Interpretation (test code = Normal 85510-2) [facility] WorthCOMP. METABOLIC PANEL (09457)2019-09-09 21:15:00 Test Item Value Reference Range Interpretation Comments NA (test code = 135 mmol/L 135-145 2834242847) K (test code = 6.5 mmol/L 3.5-5 HH Slight 8638268246) hemolysis CL (test code = 91 mmol/L 98-108 L 3443912305) CO2 TOTAL (test code 6 mmol/L 23-31 L = 0947302746) AGAP (test code = 2-16 H 8064225827) BUN (test code = 23 mg/dL 7-23 Slight 9060546776) hemolysis GLUCOSE (test code = 730 mg/dL 70-110 HH 0906692391) CREATININE (test code 1.33 mg/dL 0.6-1.25 H = 1292150654) TOTAL BILI (test code 0.8 mg/dL 0.1-1.1 = 3305007830) CALCIUM (test code = 10.8 mg/dL 8.6-10.6 H 6851419232) T PROTEIN (test code 8.7 g/dL 6.3-8.2 H = 4114333077) ALBUMIN (test code = 5.5 g/dL 3.5-5 H 7480327217) ALK PHOS (test code = 139 U/L 34-122 H Slight 4726762313) hemolysis ALTv (test code = 29 U/L 5-50 1742-6) AST(SGOT) (test code 34 U/L 13-40 Slight = 9568736567) hemolysis eGFR Calculation mL/min/1.73m2 (Non-) (test code = 2293089305) eGFR Calculation mL/min/1.73m2 () (test code = 9070435471) AIDAN (test code = AIDAN) Association of [...] tests). Lab Interpretation Abnormal (test code = 26763-5) [facility] WorthPOHI GLUCOSE(AGE >30DAYS)2019-09-09 21:14:00 Test Item Value Reference Range Interpretation Comments POCT Glu (age>30days) (test code = OH 70-110 3342) Lab Interpretation (test code = Normal 14363-9) [facility] WorthLaokic Acid Whole [id number] 21:06:00 Test Item Value Reference Range Interpretation Comments LACTIC ACID (test code = 3.15 mmol/L 0.5-2.2 H 7877283424) Lab Interpretation (test code = Abnormal 51853-9) [facility] WorthABG+COOX+NA+K+GLU+CA2+2019-09-09 21:05:00 Test Item Value Reference Range Interpretation Comments PH (test code = 2) 7.35-7.45 LL PCO2 (test code = See_Comment L [Automate d message] 3701552770) The system wedgies generated this result transmit todd reference range : 35 - 45 mmHg. The reference range was not used to interpret this result as normal/abnormal . PO2 (test code = See_Comment H [Automated message] 6054658639) The system wedgies generated this result transmit todd reference range : 80 - 100 mmHg. The reference range was not used to interpret this result as normal/abnormal . HCO3 (test code = See_Comment L [Automate d message] 9164164977) The system wedgies generated this result transmit todd reference range : 22 - 26 mEq/L. The reference range was not used to interpret this result as normal/abnormal . BE (test code = See_Comment L [Automated message] 5826851431) The system wedgies generated this result transmit todd reference range : -3.0 - 3.0 mEq/ L. The reference r elvin was not used to interpret this result as normal/abnormal . THB (test code = 14.5 g/dL 13.5-18 1974174195) %O2HB (test code = 97.1 % 94-99 1057955862) %COHB ART (test code = 0.3 % 0-1.5 5047547874) %METHB ART (test code = 0.3 % 0.4-1.5 L 5432237201) VOL%O2 ART (test code = 20.0 % 15-23 2015441253) NA (test code = 129 mmol/L 135-145 L 8739583758) K+ (test code = 6.2 mmol/L 3.5-5 HH 3875168034) AC CA IONZ (test code = 5.10 mg/dL 4.5-5.3 4208134212) GLUCOSE (test code = <20 70-110 LL 9933245938) Lab Interpretation Abnormal (test code = 72435-4) [facility] WITH MAPOEOADYBQC7660-09-04 20:40:00 Test Item Value Reference Range Interpretation [...] RDW-SD (test code = 44.7 fL 38.5-51.6 53477-8) RDW-CV (test code = 13.5 % 12.1-15.4 788-0) PLT (test code = See_Comment H [Automated 777-3) message] The system which generated this result transmit todd reference range : 150 - 328 10*3/ ?L. The reference range was not u sed to interpret th is result as normal/abnormal . MPV (test code = 9.4 fL 9.8-13 L 68772-6) NRBC/100 WBC (test See_Comment [Automat ed code = 0276439083) message] The system which generated this result transmit todd reference range : 0.0 - 10.0 /100 WBCs. The reference range was not used to interpret this result as normal/abnormal . NRBC x10^3 (test code <0.01 See_Comment [Auto mated = 5321984483) message] The system which generated this result transmit todd reference range : 10*3/?L. The reference range was not used to interpret this result as normal/abnormal . GRAN MAT (NEUT) % 82.3 % (test code = 770-8) IMM GRAN % (test code 1.50 % = 7232864665) LYMPH % (test code = 9.2 % 736-9) MONO % (test code = 6.3 % 5905-5) EOS % (test code = 0.2 % 713-8) BASO % (test code = 0.5 % 706-2) GRAN MAT x10^3(ANC) 21.88 10*3/uL 1.99-6.95 H (test code = 3366768333) IMM GRAN x10^3 (test 0.41 10*3/uL 0-0.06 H code = 5739330027) LYMPH x10^3 (test code 2.44 10*3/uL 1.09-3.23 [...] . BANDS (test code = Increased A 1288054689) Lab Interpretation Abnormal (test code = 81901-7) [facility] [id number] 20:31:00 Test Item Value Reference Range Interpretation Comments TROPONIN I (test 0.063 ng/mL See_Comment H [Automated code = 0321120048) message] The system which generated this result [...] ? Lab Interpretation Abnormal (test code = 33897-6) [facility] WorthN-TERMINAL DCE-RHR2211-24-15 20:31:00 Test Item Value Reference Range Interpretation Comments NT-proBNP (test code 267 pg/mL See_Comment H Hemolyz ed = 1920391901) specimen [Automated message] The system which generated this result transmitted reference range : <=125. The reference range was not used to interpret this result as normal/abnormal . AIDAN (test code = AIDAN) Biotin has been reported to cause a negative bias, interpret results relative to patient's use of biotin. Lab Interpretation Abnormal (test code = 75439-3) [facility] WorthTROPONIN [id number] 11:26:00 Test Item Value Reference Range Interpretation Comments TROPONIN I (test 0.004 ng/mL See_Comment [Automated code = 9070598374) message] The system which generated this result [...] ? Lab Interpretation Normal (test code = 92119-9) [facility]. METABOLIC PANEL (18284)2019-08-17 11:14:00 Test Item Value Reference Range Interpretation Comments NA (test code = 138 mmol/L 135-145 8469679977) K (test code = 4.6 mmol/L 3.5-5 3601135128) CL (test code = 98 mmol/L 98-108 8794512220) CO2 TOTAL (test code = 29 mmol/L 23-31 6311592596) AGAP (test code = 2-16 1462148496) BUN (test code = 12 mg/dL 7-23 8180809979) GLUCOSE (test code = 319 mg/dL 70-110 H 4713855119) CREATININE (test code = 0.71 mg/dL 0.6-1.25 1517567532) TOTAL BILI (test code = 0.5 mg/dL 0.1-1.2 7197503417) CALCIUM (test code = 10.1 mg/dL 8.6-10.6 6599240000) T PROTEIN (test code = 8.7 g/dL 6.3-8.2 H 5828899812) ALBUMIN (test code = 5.0 g/dL 3.5-5 0172624823) ALK PHOS (test code = 126 U/L 34-122 H 7017191218) ALTv (test code = 22 U/L 5-50 1742-6) AST(SGOT) (test code = 26 U/L 13-40 2679441571) eGFR Calculation mL/min/1.73m2 (Non-) (test code = 4437399704) eGFR Calculation mL/min/1.73m2 () (test code = 5749785192) AIDAN (test code = AIDAN) Association of [...] tests). Lab Interpretation Abnormal (test code = 27139-5) [facility] WorthLIPASE2020-01-23 11:14:00 Test Item Value Reference Range Interpretation Comments LIPASE (test code = 3870566073) 96 U/L 0-220 Lab Interpretation (test code = Normal 42102-8) [facility] WorthPROTHROMBIN TIME / [id number] 11:11:00 Test Item Value Reference Range Interpretation Comments PROTIME PATIENT (test See_Comment L [Auto mated message] code = 5964-2) The system [employer] generated this result transmitted ref erence range: 12.0 - 1 4.7 Seconds. The reference range was not used to int erpret this result as normal/abnormal . INR (test code = 6301-6) Nor mal INR <1.1; Warfarin Therap eutic range 2.0 to 3. 0 or 2.5 to 3.5, dep ending upon the indica tions. Lab Interpretation (test Abnormal code = 16412-8) [facility] WorthCB WITH DNTQUSFGTKWR3207-94-93 11:02:00 Test Item Value Reference Range Interpretation [...] RDW-SD (test code = 42.9 fL 38.5-51.6 41507-4) RDW-CV (test code = 13.1 % 12.1-15.4 788-0) PLT (test code = See_Comment H [Automated 777-3) message] The sy stem which generated this result transmitted reference range : 150 - 328 10*3/ ?L. The reference r elvin was not used to interpret this result as normal/abnormal . MPV (test code = 8.9 fL 9.8-13 L 54931-3) NRBC/100 WBC (test See_Comment [Automat ed code = 2489790396) message] The system which generated this result transmitted reference range : 0.0 - 10.0 /100 WBCs. The refer ence range was not u sed to interpret th is result as normal/abnormal . NRBC x10^3 (test code <0.01 See_Comment [Auto mated = 0291978445) message] The s ystem which generated this result transmitted reference range : 10*3/?L. The reference range was not used to interpret this result as normal/abnormal . GRAN MAT (NEUT) % 76.7 % (test code = 770-8) IMM GRAN % (test code 0.70 % = 5589069177) LYMPH % (test code = 13.1 % 736-9) MONO % (test code = 5.7 % 5905-5) EOS % (test code = 3.2 % 713-8) BASO % (test code = 0.6 % 706-2) GRAN MAT x10^3(ANC) 9.50 10*3/uL 1.99-6.95 H (test code = 5955683709) IMM GRAN x10^3 (test 0.09 10*3/uL 0-0.06 H code = 7648894195) LYMPH x10^3 (test code 1.62 10*3/uL 1.09-3.23 = 731-0) MONO x10^3 (test code 0.71 10*3/uL 0.36-1.02 = 742-7) EOS x10^3 (test code = 0.40 10*3/uL 0.06-0.53 711-2) BASO x10^3 (test code 0.07 10*3/uL 0.01-0.09 = 704-7) Lab Interpretation Abnormal (test code = 13177-1) [facility] WorthXR CHEST 1 [id number] 10:46:55No acute cardiopulmonary disease RL: 3901 AFC: 96937 End of report ORDERING CLINICIAN: DU BESS [...] contour is normal.IMPRESSIONNo acute cardiopulmonary diseaseRL: 3901AFC: 75247Lpj of report UnThe [facility]HEMATOLOGY2018-[facility]-16 18:59:00 Test Item Value Reference Range Interpretation Comments MCH (test code = MCH) 30.8 pg 27.0-31.0 [facility] SouthXdkplmqRSBICNYEND7467-36-12 18:59:00 Test Item Value Reference Range Interpretation Comments MCH (test code = MCH) 30.8 pg 27.0-31.0 [facility] SouthLelhvdeYZORSAWGQG7059-70-96 18:59:00 Test Item Value Reference Range Interpretation Comments WBC (test code = WBC) 11.1 3.7-10.4 [facility] SouthKuzptcsZGFPTKWGXJ4005-71-67 18:59:00 Test Item Value Reference Range Interpretation Comments Hct (test code = Hct) 37.5 42.0-54.0 [facility] SouthWpukkxjLJSFKSXXQT2389-60-45 18:59:00 Test Item Value Reference Range Interpretation Comments MCV (test code = MCV) 89.4 80.0-94.0 [facility] SouthWqvifbcAYCVPTAZDZ6308-80-32 18:59:00 Test Item Value Reference Range Interpretation Comments RBC (test code = RBC) 4.20 4.70-6.10 [facility] SouthAutzcdaFSGCRSLSLR2117-24-85 18:59:00 Test Item Value Reference Range Interpretation Comments Hgb (test code = Hgb) 12.9 14.0-18.0 [facility] SouthVxffapcUDQKRGFRNY9528-48-27 18:59:00 Test Item Value Reference Range Interpretation Comments Platelet (test code = Platelet) 318 133-450 [facility] SouthJdxuzzsFOKIGWANUY6088-81-45 18:59:00 Test Item Value Reference Range Interpretation Comments MPV (test code = MPV) 7.5 7.4-10.4 [facility] SouthLqgmhjjXXNIKADVUO3070-57-81 18:59:00 Test Item Value Reference Range Interpretation Comments MCHC (test code = MCHC) 34.4 32.0-36.0 [facility] SouthNwtxwbmZPDRSAEBTD4103-58-63 18:59:00 Test Item Value Reference Range Interpretation Comments RDW (test code = RDW) 14.3 11.5-14.5 [facility] SouthVedgxbpGUGJGFSYTD7211-37-65 18:59:00 Test Item Value Reference Range Interpretation Comments Segs-Bands # (test code = Segs-Bands #) 7.8 1.5-8.1 [facility] SouthZgmypheAUXJBQOOHS0762-76-52 18:59:00 Test Item Value Reference Range Interpretation Comments Lymphocytes # (test code = Lymphocytes 2.1 1.0-5.5 #) [facility] SouthUfrbkrpAVPRJQJEUA4130-54-68 18:59:00 Test Item Value Reference Range Interpretation Comments WBC (test code = WBC) 11.1 3.7-10.4 [facility] SouthWmwsjppPFRCVCLQYL5282-25-90 18:59:00 Test Item Value Reference Range Interpretation Comments Basophils (test code = 0.8 See_Comment [Aut omated message] The Basophils) system which ge nerated this result tra nsmitted reference range : <=1.0. The reference r elvin was not used to int erpret this result as normal/abnormal . [facility] SouthRaxnylcUINXLNXXIA5451-21-37 18:59:00 Test Item Value Reference Range Interpretation Comments Eosinophils (test code = 0.5 See_Comment [A utomated message] The Eosinophils) system which ge nerated this result tra nsmitted reference range : <=4.0. The reference r elvin was not used to int erpret this result as normal/abnormal . [facility] SouthNrydpbwCDYZGLCUHL7544-20-26 18:59:00 Test Item Value Reference Range Interpretation Comments Lymphocytes (test code = Lymphocytes) 19.0 20.0-40.0 [facility] SouthDofbppjBJXDZBRXZL4279-02-47 18:59:00 Test Item Value Reference Range Interpretation Comments Monocytes (test code = Monocytes) 9.5 2.0-12.0 [facility] SouthLxuoblqAZPDETZGHL4789-80-62 18:59:00 Test Item Value Reference Range Interpretation Comments Segs (test code = Segs) 70.2 45.0-75.0 [facility] SouthNjeolqmGLORMQRBVR0839-59-02 18:59:00 Test Item Value Reference Range Interpretation Comments Eosinophils # (test code 0.1 See_Comment [A utomated message] The = Eosinophils #) system whic h generated this result tra nsmitted reference range : <=0.5. The reference r elvin was not used to int erpret this result as normal/abnormal . [facility] SouthGtbmosvASZTNGWHEY1586-78-05 18:59:00 Test Item Value Reference Range Interpretation Comments Basophils # (test code 0.1 See_Comment [Aut omated message] The = Basophils #) system which generated this result tra nsmitted reference range : <=0.2. The reference r elvin was not used to int erpret this result as normal/abnormal . [facility] SouthSkdtfesBUFAVMOVFL3763-30-83 18:59:00 Test Item Value Reference Range Interpretation Comments Monocytes # (test code 1.1 See_Comment [Aut omated message] The = Monocytes #) system which generated this result tra nsmitted reference range : <=0.8. The reference r elvin was not used to int erpret this result as normal/abnormal . [facility] SouthHwzjxjyRUKRPCFPNU5520-40-20 18:59:00 Test Item Value Reference Range Interpretation Comments Hct (test code = Hct) 37.5 42.0-54.0 [facility] SouthDfnifyqJYGTEMZGGR3594-64-07 18:59:00 Test Item Value Reference Range Interpretation Comments MCV (test code = MCV) 89.4 80.0-94.0 [facility] SouthHshosrlLWICMREQOX0554-45-19 18:59:00 Test Item Value Reference Range Interpretation Comments RBC (test code = RBC) 4.20 4.70-6.10 [facility] SouthPlgluwsNGJOEVFPCO3780-78-08 18:59:00 Test Item Value Reference Range Interpretation Comments Hgb (test code = Hgb) 12.9 14.0-18.0 [facility] SouthYgyvyocQOYXBGMINL9864-81-03 18:59:00 Test Item Value Reference Range Interpretation Comments Platelet (test code = Platelet) 318 133-450 [facility] SouthMrznylyDLXBEQYBVO0501-24-80 18:59:00 Test Item Value Reference Range Interpretation Comments MPV (test code = MPV) 7.5 7.4-10.4 [facility] SouthDtjxmheYDWRMVDZTJ7603-68-10 18:59:00 Test Item Value Reference Range Interpretation Comments MCHC (test code = MCHC) 34.4 32.0-36.0 [facility] SouthDrnudyhUCDKZTCVUO5352-71-56 18:59:00 Test Item Value Reference Range Interpretation Comments RDW (test code = RDW) 14.3 11.5-14.5 [facility] SouthEhazksvPCUIRZKOYU4628-71-50 18:59:00 Test Item Value Reference Range Interpretation Comments Segs-Bands # (test code = Segs-Bands #) 7.8 1.5-8.1 [facility] SouthJctateyOUDXHJJYOK2944-11-47 18:59:00 Test Item Value Reference Range Interpretation Comments Lymphocytes # (test code = Lymphocytes 2.1 1.0-5.5 #) [facility] SouthJpfihnpKKVMBLMYBO0966-34-01 18:59:00 Test Item Value Reference Range Interpretation Comments Basophils (test code = 0.8 See_Comment [Aut omated message] The Basophils) system which ge nerated this result tra nsmitted reference range : <=1.0. The reference r elvin was not used to int erpret this result as normal/abnormal . [facility] SouthIfvvsgaMCJWYXYOSG3621-26-58 18:59:00 Test Item Value Reference Range Interpretation Comments Eosinophils (test code = 0.5 See_Comment [A utomated message] The Eosinophils) system which ge nerated this result tra nsmitted reference range : <=4.0. The reference r elvin was not used to int erpret this result as normal/abnormal . [facility] SouthOfctnmcXBDBSYFPWS9681-70-72 18:59:00 Test Item Value Reference Range Interpretation Comments Lymphocytes (test code = Lymphocytes) 19.0 20.0-40.0 [facility] SouthKgsajmiGQCIXCTYQA7431-47-21 18:59:00 Test Item Value Reference Range Interpretation Comments Monocytes (test code = Monocytes) 9.5 2.0-12.0 [facility] SouthWmtcrlwYATLAGXUWG8571-84-43 18:59:00 Test Item Value Reference Range Interpretation Comments Segs (test code = Segs) 70.2 45.0-75.0 [facility] SouthObkhuplAMEZLPUKLU0276-97-76 18:59:00 Test Item Value Reference Range Interpretation Comments Eosinophils # (test code 0.1 See_Comment [A utomated message] The = Eosinophils #) system [facility] h generated this result tra nsmitted reference range : <=0.5. The reference r elvin was not used to int erpret this result as normal/abnormal . [facility] SouthCtzxserXXRLUZSJOQ9820-68-61 18:59:00 Test Item Value Reference Range Interpretation Comments Basophils # (test code 0.1 See_Comment [Aut omated message] The = Basophils #) system which generated this result tra nsmitted reference range : <=0.2. The reference r elvin was not used to int erpret this result as normal/abnormal . [facility] SouthIvhgpfzYDJJTIKEYY1769-54-24 18:59:00 Test Item Value Reference Range Interpretation Comments Monocytes # (test code 1.1 See_Comment [Aut omated message] The = Monocytes #) system which generated this result tra nsmitted reference range : <=0.8. The reference r elvin was not used to int erpret this result as normal/abnormal . [facility]tkzldhUGFGEMPRZSPH7970-61-90 00:09:00 Test Item Value Reference Range Interpretation Comments Potassium Lvl (test code = Potassium 3.6 3.5-5.1 Lvl) [facility]QetbkipTQHTBFJTIQNS2772-61-34 00:09:00 Test Item Value Reference Range Interpretation Comments Chloride Lvl (test code = Chloride Lvl) 111 95-109 [facility]DnqvkcnSUZYNQWSNXGF3808-75-07 00:09:00 Test Item Value Reference Range Interpretation Comments BUN (test code = BUN) 9 7-22 [facility]FzgiiceXUEFIPZLMWJP0767-75-89 00:09:00 Test Item Value Reference Range Interpretation Comments Creatinine Lvl (test code = Creatinine 0.94 0.50-1.40 Lvl) [facility]KgkbktaFZBGCUSUNEBL0320-00-03 00:09:00 Test Item Value Reference Range Interpretation Comments Sodium Lvl (test code = Sodium Lvl) 141 135-145 [facility]KoskxxdXQUUPIHAXPAD2242-69-11 00:09:00 Test Item Value Reference Range Interpretation Comments Glucose Lvl (test code = Glucose Lvl) 106 70-99 [facility] HospitalEssgkcgFHBDSGYTDFZH7293-00-20 00:09:00 Test Item Value Reference Range Interpretation Comments Calcium Lvl (test code = Calcium Lvl) 7.9 8.5-10.5 [facility] HospitalBcbybpyOYYJRUSVEBOF6470-78-58 00:09:00 Test Item Value Reference Range Interpretation Comments AGAP (test code = AGAP) 13.6 10.0-20.0 [facility] HospitalUxvetyiNYTJNDLUAVNW2719-88-15 00:09:00 Test Item Value Reference Range Interpretation Comments CO2 (test code = CO2) 20 24-32 [facility] HospitalAkcozteRQITWIBRKDWJ8683-48-75 00:09:00 Test Item Value Reference Range Interpretation Comments eGFR (test code = eGFR) 93 [facility]GfxojsjCROWZEBFBALD0832-26-18 00:09:00 Test Item Value Reference Range Interpretation Comments Potassium Lvl (test code = Potassium 3.6 3.5-5.1 Lvl) [facility] HospitalInhvjlsDZTNTGUHSWAO5618-27-93 00:09:00 Test Item Value Reference Range Interpretation Comments Chloride Lvl (test code = Chloride Lvl) 111 95-109 [facility] HospitalAjqjmxjQNUERAILMSIP8936-11-49 00:09:00 Test Item Value Reference Range Interpretation Comments BUN (test code = BUN) 9 7-22 [facility] HospitalPqqfsqjTSXEYHKSMOEW9568-83-62 00:09:00 Test Item Value Reference Range Interpretation Comments Creatinine Lvl (test code = Creatinine 0.94 0.50-1.40 Lvl) [facility] HospitalPbwkgquLJRNXSGXYLKV7843-63-93 00:09:00 Test Item Value Reference Range Interpretation Comments Sodium Lvl (test code = Sodium Lvl) 141 135-145 [facility] HospitalJuejhdyZVQPOVWRGKUT8650-23-63 00:09:00 Test Item Value Reference Range Interpretation Comments Glucose Lvl (test code = Glucose Lvl) 106 70-99 [facility] HospitalKedhcajKRDQQQAQXONE1988-16-86 00:09:00 Test Item Value Reference Range Interpretation Comments Calcium Lvl (test code = Calcium Lvl) 7.9 8.5-10.5 [facility] HospitalBfuhpruXARABNGVLEKA0588-51-52 00:09:00 Test Item Value Reference Range Interpretation Comments AGAP (test code = AGAP) 13.6 10.0-20.0 [facility] HospitalJvhzmmtJHUWHHAJHLDK5706-73-29 00:09:00 Test Item Value Reference Range Interpretation Comments CO2 (test code = CO2) 20 24-32 [facility] HospitalIsqfxdbMHLYLSCJYBZW4049-98-06 00:09:00 Test Item Value Reference Range Interpretation Comments eGFR (test code = eGFR) 93 [facility]2018-06-15 14:35:00 Test Item Value Reference Range Interpretation Comments Magnesium Lvl (test code = Magnesium 1.9 1.8-2.4 Lvl) [facility]2018-06-15 14:35:00 Test Item Value Reference Range Interpretation Comments Glucose Lvl (test code = Glucose Lvl) 124 70-99 [facility]2018-06-15 14:35:00 Test Item Value Reference Range Interpretation Comments BUN (test code = BUN) 17 7-22 [facility]2018-06-15 14:35:00 Test Item Value Reference Range Interpretation Comments Sodium Lvl (test code = Sodium Lvl) 143 135-145 [facility]2018-06-15 14:35:00 Test Item Value Reference Range Interpretation Comments Potassium Lvl (test code = Potassium 4.1 3.5-5.1 Lvl) [facility]2018-06-15 14:35:00 Test Item Value Reference Range Interpretation Comments Creatinine Lvl (test code = Creatinine 0.98 0.50-1.40 Lvl) [facility]2018-06-15 14:35:00 Test Item Value Reference Range Interpretation Comments Chloride Lvl (test code = Chloride Lvl) 116 95-109 [facility]2018-06-15 14:35:00 Test Item Value Reference Range Interpretation Comments Magnesium Lvl (test code = Magnesium 1.9 1.8-2.4 Lvl) [facility]2018-06-15 14:35:00 Test Item Value Reference Range Interpretation Comments Glucose Lvl (test code = Glucose Lvl) 124 70-99 [facility]2018-06-15 14:35:00 Test Item Value Reference Range Interpretation Comments BUN (test code = BUN) 17 7-22 [facility]2018-06-15 14:35:00 Test Item Value Reference Range Interpretation Comments Sodium Lvl (test code = Sodium Lvl) 143 135-145 [facility]2018-06-15 14:35:00 Test Item Value Reference Range Interpretation Comments Potassium Lvl (test code = Potassium 4.1 3.5-5.1 Lvl) [facility]2018-06-15 14:35:00 Test Item Value Reference Range Interpretation Comments Creatinine Lvl (test code = Creatinine 0.98 0.50-1.40 Lvl) [facility]2018-06-15 14:35:00 Test Item Value Reference Range Interpretation Comments Chloride Lvl (test code = Chloride Lvl) 116 95-109 [facility]2018-06-15 14:35:00 Test Item Value Reference Range Interpretation Comments eGFR (test code = eGFR) 88 [facility]2018-06-15 14:35:00 Test Item Value Reference Range Interpretation Comments eGFR (test code = eGFR) 88 [facility]2018-06-15 14:35:00 Test Item Value Reference Range Interpretation Comments CO2 (test code = CO2) 18 24-32 [facility]2018-06-15 14:35:00 Test Item Value Reference Range Interpretation Comments Calcium Lvl (test code = Calcium Lvl) 7.8 8.5-10.5 [facility]2018-06-15 14:35:00 Test Item Value Reference Range Interpretation Comments AGAP (test code = AGAP) 13.1 10.0-20.0 [facility]2018-06-15 14:35:00 Test Item Value Reference Range Interpretation Comments Magnesium Lvl (test code = Magnesium 2.0 1.8-2.4 Lvl) [facility]2018-06-15 14:35:00 Test Item Value Reference Range Interpretation Comments Ketone Quantitative (test code = Ketone 0.53 Quantitative) [facility]2018-06-15 14:35:00 Test Item Value Reference Range Interpretation Comments Phosphorus (test code = Phosphorus) 2.1 2.5-4.5 [facility]2018-06-15 14:35:00 Test Item Value Reference Range Interpretation Comments CO2 (test code = CO2) 18 24-32 [facility]2018-06-15 14:35:00 Test Item Value Reference Range Interpretation Comments Calcium Lvl (test code = Calcium Lvl) 7.8 8.5-10.5 [facility]2018-06-15 14:35:00 Test Item Value Reference Range Interpretation Comments AGAP (test code = AGAP) 13.1 10.0-20.0 [facility]2018-06-15 14:35:00 Test Item Value Reference Range Interpretation Comments Magnesium Lvl (test code = Magnesium 2.0 1.8-2.4 Lvl) [facility]2018-06-15 14:35:00 Test Item Value Reference Range Interpretation Comments Ketone Quantitative (test code = Ketone 0.53 Quantitative) [facility]2018-06-15 14:35:00 Test Item Value Reference Range Interpretation Comments Phosphorus (test code = Phosphorus) 2.1 2.5-4.5 [facility]2018-06-15 08:58:20 Test Item Value Reference Range Interpretation Comments Glucose Lvl (test code = Glucose Lvl) 143 70-99 [facility]2018-06-15 08:58:20 Test Item Value Reference Range Interpretation Comments Creatinine Lvl (test code = Creatinine 1.23 0.50-1.40 Lvl) [facility]2018-06-15 08:58:20 Test Item Value Reference Range Interpretation Comments BUN (test code = BUN) 22 7-22 [facility]2018-06-15 08:58:20 Test Item Value Reference Range Interpretation Comments Sodium Lvl (test code = Sodium Lvl) 140 135-145 [facility]2018-06-15 08:58:20 Test Item Value Reference Range Interpretation Comments eGFR (test code = eGFR) 67 [facility] [id number] 08:58:20 Test Item Value Reference Range Interpretation Comments Hgb A1C (test code = Hgb A1C) 10.2 [facility]2018-06-15 08:58:20 Test Item Value Reference Range Interpretation Comments Magnesium Lvl (test code = Magnesium 2.1 1.8-2.4 Lvl) [facility]2018-06-15 08:58:20 Test Item Value Reference Range Interpretation Comments Calcium Lvl (test code = Calcium Lvl) 8.3 8.5-10.5 [facility]2018-06-15 08:58:20 Test Item Value Reference Range Interpretation Comments AGAP (test code = AGAP) 13.7 10.0-20.0 [facility]2018-06-15 08:58:20 Test Item Value Reference Range Interpretation Comments Potassium Lvl (test code = Potassium 3.7 3.5-5.1 Lvl) [facility]2018-06-15 08:58:20 Test Item Value Reference Range Interpretation Comments CO2 (test code = CO2) 19 24-32 [facility]2018-06-15 08:58:20 Test Item Value Reference Range Interpretation Comments Chloride Lvl (test code = Chloride Lvl) 111 95-109 [facility]2018-06-15 08:58:20 Test Item Value Reference Range Interpretation Comments Magnesium Lvl (test code = Magnesium 2.1 1.8-2.4 Lvl) [facility]2018-06-15 08:58:20 Test Item Value Reference Range Interpretation Comments Calcium Lvl (test code = Calcium Lvl) 8.3 8.5-10.5 [facility]2018-06-15 08:58:20 Test Item Value Reference Range Interpretation Comments AGAP (test code = AGAP) 13.7 10.0-20.0 [facility] [id number] 08:58:20 Test Item Value Reference Range Interpretation Comments Potassium Lvl (test code = Potassium 3.7 3.5-5.1 Lvl) [facility] [id number] 08:58:20 Test Item Value Reference Range Interpretation Comments CO2 (test code = CO2) 19 24-32 [facility] [id number] 08:58:20 Test Item Value Reference Range Interpretation Comments Chloride Lvl (test code = Chloride Lvl) 111 95-109 [facility] [id number] 08:58:20 Test Item Value Reference Range Interpretation Comments Glucose Lvl (test code = Glucose Lvl) 143 70-99 [facility]2018-06-15 08:58:20 Test Item Value Reference Range Interpretation Comments Creatinine Lvl (test code = Creatinine 1.23 0.50-1.40 Lvl) [facility]2018-06-15 08:58:20 Test Item Value Reference Range Interpretation Comments BUN (test code = BUN) 22 7-22 [facility] [id number] 08:58:20 Test Item Value Reference Range Interpretation Comments Sodium Lvl (test code = Sodium Lvl) 140 135-145 [facility] [id number] 08:58:20 Test Item Value Reference Range Interpretation Comments eGFR (test code = eGFR) 67 [facility] [id number] 08:58:20 Test Item Value Reference Range Interpretation Comments Hgb A1C (test code = Hgb A1C) 10.2 [facility] [id number] 07:11:00 Test Item Value Reference Range Interpretation Comments U Phencyc Scr (test Negative *NA*(01/07/18 code = U Phencyc Scr) 2:11 AM) [facility] [id number] 07:11:00 Test Item Value Reference Range Interpretation Comments UDS Note (test code = See Note (01/07/18 2:11 UDS Note) AM) [facility] [id number] 07:11:00 Test Item Value Reference Range Interpretation Comments U Cannab Scr (test Negative *NA*(01/07/18 code = U Cannab Scr) 2:11 AM) [facility] [id number] 07:11:00 Test Item Value Reference Range Interpretation Comments U Cocaine Scr (test Positive *ABN*(01/07/18 code = U Cocaine Scr) 2:11 AM) [facility] [id number] 07:11:00 Test Item Value Reference Range Interpretation Comments U Benzodia Scr (test Negative *NA*(01/07/18 code = U Benzodia Scr) 2:11 AM) [facility] [id number] 07:11:00 Test Item Value Reference Range Interpretation Comments U Latisha Scr (test code Negative *NA*(01/07/18 = U Latisha Scr) 2:11 AM) [facility] [id number] 07:11:00 Test Item Value Reference Range Interpretation Comments U Opiate Scr (test Negative *NA*(01/07/18 code = U Opiate Scr) 2:11 AM) [facility] [id number] 07:11:00 Test Item Value Reference Range Interpretation Comments U Amph Scr (test code Negative *NA*(01/07/18 = U Amph Scr) 2:11 AM) [facility] [id number] 07:11:00 Test Item Value Reference Range Interpretation Comments UA Glucose (test code = UA Glucose) no gt [facility] [id number] 07:11:00 Test Item Value Reference Range Interpretation Comments UA Urobilinogen (test code = UA <=1.0 mg/dL 0.1-1.0 Urobilinogen) [facility] [id number] 07:11:00 Test Item Value Reference Range Interpretation Comments UA Sq Epi (test code = UA Sq Occasional /LPF Epi) [facility] [id number] 07:11:00 Test Item Value Reference Range Interpretation Comments UA Leuk Est (test Negative (01/07/18 2:11 code = UA Leuk Est) AM) [facility] [id number] 07:11:00 Test Item Value Reference Range Interpretation Comments UA Nitrite (test code Negative (01/07/18 2:11 = UA Nitrite) AM) [facility] [id number] 07:11:00 Test Item Value Reference Range Interpretation Comments UA Blood (test code = Negative (01/07/18 2:11 UA Blood) AM) [facility] AND [id number] 07:11:00 Test Item Value Reference Range Interpretation Comments UA RBC (test code = 2 See_Comment [Automa todd message] The UA RBC) system which ge nerated this result transmit todd reference range : <=2. The reference range was not used to interpr et this result as ning l/abnormal. [facility] [id number] 07:11:00 Test Item Value Reference Range Interpretation Comments UA Mucus (test code = UA Mucus) Few /LPF [facility] AND [id number] 07:11:00 Test Item Value Reference Range Interpretation Comments UA WBC (test code = 2 See_Comment [Automa todd message] The UA WBC) system which ge nerated this result transmit todd reference range : <=5. The reference range was not used to interpr et this result as ning l/abnormal. [facility] AND [id number] 07:11:00 Test Item Value Reference Range Interpretation Comments UA Hyal Cast (test 4 See_Comment [Automat ed message] The code = UA Hyal Cast) system which generated this result transmit todd reference range : <=2. The reference range was not used to interpr et this result as ning l/abnormal. [facility] AND [id number] 07:11:00 Test Item Value Reference Range Interpretation Comments UA Color (test code = Yellow *NA*(01/07/18 UA Color) 2:11 AM) [facility] AND [id number] 07:11:00 Test Item Value Reference Range Interpretation Comments UA Spec Grav (test code = UA Spec 1.017 1 Grav) [facility] AND [id number] 07:11:00 Test Item Value Reference Range Interpretation Comments UA Turbidity (test code = Clear (01/07/18 2:11 UA Turbidity) AM) [facility] AND [id number] 07:11:00 Test Item Value Reference Range Interpretation Comments UA pH (test code = UA pH) 5.0 1 5.0-8.0 [facility] AND [id number] 07:11:00 Test Item Value Reference Range Interpretation Comments UA Ketones (test code = UA Ketones) 80 mg/dL [facility] [id number] 07:11:00 Test Item Value Reference Range Interpretation Comments UA Protein (test code = UA Negative mg/dL Protein) [facility] [id number] 07:11:00 Test Item Value Reference Range Interpretation Comments UA Bili (test code = Negative *NA*(01/07/18 UA Bili) 2:11 AM) [facility] [id number] 07:11:00 Test Item Value Reference Range Interpretation Comments U Phencyc Scr (test Negative *NA*(01/07/18 code = U Phencyc Scr) 2:11 AM) [facility] [id number] 07:11:00 Test Item Value Reference Range Interpretation Comments UDS Note (test code = See Note (01/07/18 2:11 UDS Note) AM) [facility] [id number] 07:11:00 Test Item Value Reference Range Interpretation Comments U Cannab Scr (test Negative *NA*(01/07/18 code = U Cannab Scr) 2:11 AM) [facility] [id number] 07:11:00 Test Item Value Reference Range Interpretation Comments U Cocaine Scr (test Positive *ABN*(01/07/18 code = U Cocaine Scr) 2:11 AM) [facility] [id number] 07:11:00 Test Item Value Reference Range Interpretation Comments U Benzodia Scr (test Negative *NA*(01/07/18 code = U Benzodia Scr) 2:11 AM) [facility] [id number] 07:11:00 Test Item Value Reference Range Interpretation Comments U Latisha Scr (test code Negative *NA*(01/07/18 = U Latisha Scr) 2:11 AM) [facility] [id number] 07:11:00 Test Item Value Reference Range Interpretation Comments U Opiate Scr (test Negative *NA*(01/07/18 code = U Opiate Scr) 2:11 AM) [facility] [id number] 07:11:00 Test Item Value Reference Range Interpretation Comments U Amph Scr (test code Negative *NA*(01/07/18 = U Amph Scr) 2:11 AM) [facility] [id number] 07:11:00 Test Item Value Reference Range Interpretation Comments UA Glucose (test code = UA Glucose) no gt [facility] AND [id number] 07:11:00 Test Item Value Reference Range Interpretation Comments UA Urobilinogen (test code = UA <=1.0 mg/dL 0.1-1.0 Urobilinogen) [facility] AND [id number] 07:11:00 Test Item Value Reference Range Interpretation Comments UA Sq Epi (test code = UA Sq Occasional /LPF Epi) [facility] AND [id number] 07:11:00 Test Item Value Reference Range Interpretation Comments UA Leuk Est (test Negative (01/07/18 2:11 code = UA Leuk Est) AM) [facility] AND [id number] 07:11:00 Test Item Value Reference Range Interpretation Comments UA Nitrite (test code Negative (01/07/18 2:11 = UA Nitrite) AM) [facility] AND [id number] 07:11:00 Test Item Value Reference Range Interpretation Comments UA Blood (test code = Negative (01/07/18 2:11 UA Blood) AM) [facility] AND [id number] 07:11:00 Test Item Value Reference Range Interpretation Comments UA RBC (test code = 2 See_Comment [Automa todd message] The UA RBC) system which ge nerated this result transmit todd reference range : <=2. The reference range was not used to interpr et this result as ning l/abnormal. [facility] AND [id number] 07:11:00 Test Item Value Reference Range Interpretation Comments UA Mucus (test code = UA Mucus) Few /LPF [facility] AND [id number] 07:11:00 Test Item Value Reference Range Interpretation Comments UA WBC (test code = 2 See_Comment [Automa todd message] The UA WBC) system which ge nerated this result transmit todd reference range : <=5. The reference range was not used to interpr et this result as ning l/abnormal. [facility] AND [id number] 07:11:00 Test Item Value Reference Range Interpretation Comments UA Hyal Cast (test 4 See_Comment [Automat ed message] The code = UA Hyal Cast) system which generated this result transmit todd reference range : <=2. The reference range was not used to interpr et this result as ning l/abnormal. [facility] AND [id number] 07:11:00 Test Item Value Reference Range Interpretation Comments UA Color (test code = Yellow *NA*(01/07/18 UA Color) 2:11 AM) [facility] AND [id number] 07:11:00 Test Item Value Reference Range Interpretation Comments UA Spec Grav (test code = UA Spec 1.017 1 Grav) [facility] AND [id number] 07:11:00 Test Item Value Reference Range Interpretation Comments UA Turbidity (test code = Clear (01/07/18 2:11 UA Turbidity) AM) [facility] AND [id number] 07:11:00 Test Item Value Reference Range Interpretation Comments UA pH (test code = UA pH) 5.0 1 5.0-8.0 [facility] AND [id number] 07:11:00 Test Item Value Reference Range Interpretation Comments UA Ketones (test code = UA Ketones) 80 mg/dL [facility] AND [id number] 07:11:00 Test Item Value Reference Range Interpretation Comments UA Protein (test code = UA Negative mg/dL Protein) [facility] AND [id number] 07:11:00 Test Item Value Reference Range Interpretation Comments UA Bili (test code = Negative *NA*(01/07/18 UA Bili) 2:11 AM) [facility] [id number] 05:21:00 Test Item Value Reference Range Interpretation Comments Procalcitonin Lvl (test 0.13 1 See_Comment [Au tomated message] code = Procalcitonin Lvl) Th e system which generated this result transmitted ref erence range: <=0.10. The reference range was not used to int erpret this result as normal/abnormal . [facility] [id number] 05:21:00 Test Item Value Reference Range Interpretation Comments Procalcitonin Lvl (test 0.13 1 See_Comment [Au tomated message] code = Procalcitonin Lvl) Th e system which generated this result transmitted ref erence range: <=0.10. The reference range was not used to int erpret this result as normal/abnormal . [id number] 04:15:00 Test Item Value Reference Range Interpretation Comments PT (test code = PT) 13.1 s 12.0-14.7 [facility] [id number] 04:15:00 Test Item Value Reference Range Interpretation Comments INR (test code = INR) 0.99 1 0.85-1.17 [facility] [id number] 04:15:00 Test Item Value Reference Range Interpretation Comments MCHC (test code = MCHC) 34.3 32.0-36.0 [facility] [id number] 04:15:00 Test Item Value Reference Range Interpretation Comments MCH (test code = MCH) 30.6 pg 27.0-31.0 [facility] [id number] 04:15:00 Test Item Value Reference Range Interpretation Comments MPV (test code = MPV) 7.2 7.4-10.4 [facility] SouthFalxqzvZNIXTFDANM6714-10-26 04:15:00 Test Item Value Reference Range Interpretation Comments RDW (test code = RDW) 14.9 11.5-14.5 [facility] [id number] 04:15:00 Test Item Value Reference Range Interpretation Comments Platelet (test code = Platelet) 492 133-450 [facility] SouthBblflmmGLHRUDGAMJ5661-83-76 04:15:00 Test Item Value Reference Range Interpretation Comments MCV (test code = MCV) 89.2 80.0-94.0 [facility] SouthQvtpkipMEOEHCPHVO2493-48-76 04:15:00 Test Item Value Reference Range Interpretation Comments Hct (test code = Hct) 43.9 42.0-54.0 [facility] SouthUvltfagOITMAVJSQE7405-41-47 04:15:00 Test Item Value Reference Range Interpretation Comments Hgb (test code = Hgb) 15.1 14.0-18.0 [facility] SouthQmzflmhPYGDQOTBHU4007-29-03 04:15:00 Test Item Value Reference Range Interpretation Comments RBC (test code = RBC) 4.92 4.70-6.10 [facility] SouthXoxgjonWZCVEEFJIH1000-12-87 04:15:00 Test Item Value Reference Range Interpretation Comments WBC (test code = WBC) 26.5 3.7-10.4 [facility] SouthFagxnvdMKHFYCAOJM1041-20-24 04:15:00 Test Item Value Reference Range Interpretation Comments Lymphocytes # (test code = Lymphocytes 2.2 1.0-5.5 #) [facility] SouthMvhckutKEMEHTIQKI6765-22-85 04:15:00 Test Item Value Reference Range Interpretation Comments Segs-Bands # (test code = Segs-Bands #) 22.4 1.5-8.1 [facility] SouthLkxxknnNSKXAAYWTL8464-97-80 04:15:00 Test Item Value Reference Range Interpretation Comments Basophils # (test code 0.2 See_Comment [Aut omated message] The = Basophils #) system which generated this result tra nsmitted reference range : <=0.2. The reference r elvin was not used to int erpret this result as normal/abnormal . [facility] SouthCzqbvkaJFCJOFFGIX0100-06-99 04:15:00 Test Item Value Reference Range Interpretation Comments Monocytes # (test code 1.7 See_Comment [Aut omated message] The = Monocytes #) system which generated this result tra nsmitted reference range : <=0.8. The reference r elvin was not used to int erpret this result as normal/abnormal . [facility] SouthZmhrparJGGXJXWFQH2755-95-71 04:15:00 Test Item Value Reference Range Interpretation Comments Plt Morph (test code = Normal (01/06/18 11:15 Plt Morph) PM) [facility] SouthOqgeslnGZEMGBEHLD8402-41-31 04:15:00 Test Item Value Reference Range Interpretation Comments Segs (test code = Segs) 84.6 45.0-75.0 [facility] SouthWvwguarNIHMHZKIRX8454-84-80 04:15:00 Test Item Value Reference Range Interpretation Comments Lymphocytes (test code = Lymphocytes) 8.3 20.0-40.0 [facility] SouthFrsubscQHFOXIBNZS6728-79-20 04:15:00 Test Item Value Reference Range Interpretation Comments Monocytes (test code = Monocytes) 6.5 2.0-12.0 [facility] SouthSmybhkjSLKYEYOYFK9659-45-25 04:15:00 Test Item Value Reference Range Interpretation Comments Basophils (test code = 0.6 See_Comment [Aut omated message] The Basophils) system which ge nerated this result tra nsmitted reference range : <=1.0. The reference r elvin was not used to int erpret this result as normal/abnormal . [facility]LzifyjiVBRQYNGEBH4301-38-81 04:15:00 Test Item Value Reference Range Interpretation Comments RBC Morph (test code = Normal (01/06/18 11:15 RBC Morph) PM) [facility]KnzvgpjTCAMJIFTKY0025-54-32 04:15:00 Test Item Value Reference Range Interpretation Comments Ethanol Lvl (test code = Ethanol Lvl) no gt [facility]anoZgrjvdkLTMTUFVLXA7139-38-02 04:15:00 Test Item Value Reference Range Interpretation Comments Etoh (%) (test code = Etoh (%)) no gt [facility]annCARDIAC [id number] 04:15:00 Test Item Value Reference Range Interpretation Comments Troponin-I (test code no gt See_Comment [Auto mated message] The = Troponin-I) system which g enerated this result transmit todd reference range : <=0.40. The reference r elvin was not used to interpr et this result as ning l/abnormal. [facility]annCARDIAC [id number] 04:15:00 Test Item Value Reference Range Interpretation Comments Total CK (test code = Total CK) 54 12-191 [facility]annCARDIAC [id number] 04:15:00 Test Item Value Reference Range Interpretation Comments CK MB (test code = CK MB) 0.6 0.5-3.6 [facility]annCARDIAC [id number] 04:15:00 Test Item Value Reference Range Interpretation Comments CK MB Index (test 1.1 1 See_Comment [Automate d message] The code = CK MB Index) system w [facility] generated this result transmit todd reference range : <=2.5. The reference range was not used to interpr et this result as ning l/abnormal. [facility] [employer]CHEM [id number] 04:15:00 Test Item Value Reference Range Interpretation Comments Lactic Acid Lvl (test code = Lactic 5.2 0.5-2.2 Acid Lvl) [facility]annCHE[facility] [id number] 04:15:00 Test Item Value Reference Range Interpretation Comments Magnesium Lvl (test code = Magnesium 2.4 1.8-2.4 Lvl) [facility]annCHE[facility] [id number] 04:15:00 Test Item Value Reference Range Interpretation Comments Phosphorus (test code = Phosphorus) 4.0 2.5-4.5 [facility]2018-06-15 04:15:00 Test Item Value Reference Range Interpretation Comments Ketone Quantitative (test code = Ketone 4.44 Quantitative) [facility]2018-06-15 04:15:00 Test Item Value Reference Range Interpretation Comments eGFR (test code = eGFR) 42 [facility]2018-06-15 04:15:00 Test Item Value Reference Range Interpretation Comments Globulin (test code = Globulin) 4.2 2.7-4.2 [facility]2018-06-15 04:15:00 Test Item Value Reference Range Interpretation Comments A/G Ratio (test code = A/G Ratio) 1.1 1 0.7-1.6 [place] 337218-06-15 04:15:00 Test Item Value Reference Range Interpretation Comments B/C Ratio (test code = B/C Ratio) 15 1 6-25 [place] 337218-06-15 04:15:00 Test Item Value Reference Range Interpretation Comments AGAP (test code = AGAP) 24.5 10.0-20.0 [place] 337218-06-15 04:15:00 Test Item Value Reference Range Interpretation Comments AST (test code = AST) 30 See_Comment [Auto mated message] The system which ge nerated this result transmit todd reference range : <=37. The reference range was not used to interpr et this result as ning l/abnormal. [facility]2018-06-15 04:15:00 Test Item Value Reference Range Interpretation Comments Alk Phos (test code = Alk Phos) 103 39-136 [facility]2018-06-15 04:15:00 Test Item Value Reference Range Interpretation Comments Bili Total (test code = Bili Total) 0.6 0.2-1.3 [place] 337218-06-15 04:15:00 Test Item Value Reference Range Interpretation Comments Glucose Lvl (test code = Glucose Lvl) 332 70-99 [place] 337218-06-15 04:15:00 Test Item Value Reference Range Interpretation Comments Albumin Lvl (test code = Albumin Lvl) 4.5 3.5-5.0 [facility]2018-06-15 04:15:00 Test Item Value Reference Range Interpretation Comments Total Protein (test code = Total 8.7 6.4-8.4 Protein) [facility]2018-06-15 04:15:00 Test Item Value Reference Range Interpretation Comments Calcium Lvl (test code = Calcium Lvl) 9.5 8.5-10.5 [facility]2018-06-15 04:15:00 Test Item Value Reference Range Interpretation Comments CO2 (test code = CO2) 14 24-32 [facility]2018-06-15 04:15:00 Test Item Value Reference Range Interpretation Comments Chloride Lvl (test code = Chloride Lvl) 103 95-109 [facility]2018-06-15 04:15:00 Test Item Value Reference Range Interpretation Comments Potassium Lvl (test code = Potassium 4.5 3.5-5.1 Lvl) [facility]2018-06-15 04:15:00 Test Item Value Reference Range Interpretation Comments BUN (test code = BUN) 27 7-22 [facility]2018-06-15 04:15:00 Test Item Value Reference Range Interpretation Comments Sodium Lvl (test code = Sodium Lvl) 137 135-145 [facility]2018-06-15 04:15:00 Test Item Value Reference Range Interpretation Comments Creatinine Lvl (test code = Creatinine 1.80 0.50-1.40 Lvl) [facility]2018-06-15 04:15:00 Test Item Value Reference Range Interpretation Comments ALT (test code = ALT) 44 See_Comment [Auto mated message] The system which ge nerated this result transmit todd reference range : <=65. The reference range was not used to interpr et this result as ning l/abnormal. [facility]2018-06-15 04:15:00 Test Item Value Reference Range Interpretation Comments Lipase Lvl (test code = Lipase Lvl) 358 73-393 [facility] SouthQnhpxzoPQARMJAOYG3392-84-55 04:15:00 Test Item Value Reference Range Interpretation Comments PTT (test code = PTT) 29.2 s 22.9-35.8 [facility] SouthNtqtktvXIZGEKDMVB0689-73-63 04:15:00 Test Item Value Reference Range Interpretation Comments PT (test code = PT) 13.1 s 12.0-14.7 [place] 328818-06-15 04:15:00 Test Item Value Reference Range Interpretation Comments INR (test code = INR) 0.99 1 0.85-1.17 [facility] SouthDtdelaaVYRRMKIEWS8559-58-46 04:15:00 Test Item Value Reference Range Interpretation Comments MCHC (test code = MCHC) 34.3 32.0-36.0 [facility] SouthJgonvfzIGCCPINSUL7416-96-88 04:15:00 Test Item Value Reference Range Interpretation Comments MCH (test code = MCH) 30.6 pg 27.0-31.0 [facility] SouthAuumgcbJMKIYUHFCI6167-66-83 04:15:00 Test Item Value Reference Range Interpretation Comments MPV (test code = MPV) 7.2 7.4-10.4 [facility] SouthGmdmmloTHFOHJZKCH1369-88-89 04:15:00 Test Item Value Reference Range Interpretation Comments RDW (test code = RDW) 14.9 11.5-14.5 [facility] SouthMkpuhlpEYTZNSHPJC0940-03-00 04:15:00 Test Item Value Reference Range Interpretation Comments Platelet (test code = Platelet) 492 133-450 [facility] SouthNrkmnipTFBOANLBRN8216-89-68 04:15:00 Test Item Value Reference Range Interpretation Comments MCV (test code = MCV) 89.2 80.0-94.0 [facility] SouthBgdhmpmLXUHSHIJXS2684-39-91 04:15:00 Test Item Value Reference Range Interpretation Comments Hct (test code = Hct) 43.9 42.0-54.0 [facility] SouthHmnzpgoDQRFZPIRJM0072-29-72 04:15:00 Test Item Value Reference Range Interpretation Comments Hgb (test code = Hgb) 15.1 14.0-18.0 [facility] SouthTxoseuwPDSMLLANWG2289-20-21 04:15:00 Test Item Value Reference Range Interpretation Comments RBC (test code = RBC) 4.92 4.70-6.10 [facility] SouthMehrdtpAXEYEOBPSU8770-78-94 04:15:00 Test Item Value Reference Range Interpretation Comments WBC (test code = WBC) 26.5 3.7-10.4 [facility] SouthVhiebflKLKNAISTEX7469-46-48 04:15:00 Test Item Value Reference Range Interpretation Comments Lymphocytes # (test code = Lymphocytes 2.2 1.0-5.5 #) [facility] SouthLzkwekdNLUZWKOUUH6763-74-55 04:15:00 Test Item Value Reference Range Interpretation Comments Segs-Bands # (test code = Segs-Bands #) 22.4 1.5-8.1 [facility] SouthYqbnhcdGVLHNTWKFL3345-53-46 04:15:00 Test Item Value Reference Range Interpretation Comments Basophils # (test code 0.2 See_Comment [Aut omated message] The = Basophils #) system which generated this result tra nsmitted reference range : <=0.2. The reference r elvin was not used to int erpret this result as normal/abnormal . [facility] SouthOcfpaoiJMWTOUFVUY4898-96-07 04:15:00 Test Item Value Reference Range Interpretation Comments Monocytes # (test code 1.7 See_Comment [Aut omated message] The = Monocytes #) system which generated this result tra nsmitted reference range : <=0.8. The reference r elvin was not used to int erpret this result as normal/abnormal . [facility] SouthOnkjwdhFAXFNPTZTZ2660-91-00 04:15:00 Test Item Value Reference Range Interpretation Comments Plt Morph (test code = Normal (01/06/18 11:15 Plt Morph) PM) [facility] SouthHojwszbMNHEDMCYSD4663-21-58 04:15:00 Test Item Value Reference Range Interpretation Comments Segs (test code = Segs) 84.6 45.0-75.0 [facility] SouthPnigxhoICFINKOLND6952-19-97 04:15:00 Test Item Value Reference Range Interpretation Comments Lymphocytes (test code = Lymphocytes) 8.3 20.0-40.0 [facility] SouthXwarjwkJMIDYXAEAY1686-32-88 04:15:00 Test Item Value Reference Range Interpretation Comments Monocytes (test code = Monocytes) 6.5 2.0-12.0 [facility] SouthWytjjbbUHYKWWUZCJ5361-09-87 04:15:00 Test Item Value Reference Range Interpretation Comments Basophils (test code = 0.6 See_Comment [Aut omated message] The Basophils) system which ge nerated this result tra nsmitted reference range : <=1.0. The reference r elvin was not used to int erpret this result as normal/abnormal . [facility] SouthCykjlwfBRSLPYGHSI7010-96-98 04:15:00 Test Item Value Reference Range Interpretation Comments RBC Morph (test code = Normal (01/06/18 11:15 RBC Morph) PM) [facility]OnowwpzDYNSYTMXKG3427-16-86 04:15:00 Test Item Value Reference Range Interpretation Comments Ethanol Lvl (test code = Ethanol Lvl) no gt [facility] UhodsjnNURGSBAVNY3075-44-57 04:15:00 Test Item Value Reference Range Interpretation Comments Etoh (%) (test code = Etoh (%)) no gt [facility] HermannCARDIAC [id number] 04:15:00 Test Item Value Reference Range Interpretation Comments Troponin-I (test code no gt See_Comment [Auto mated message] The = Troponin-I) system which g enerated this result transmit todd reference range : <=0.40. The reference r elvin was not used to interpr et this result as ning l/abnormal. [facility] [employer] [id number] 04:15:00 Test Item Value Reference Range Interpretation Comments Total CK (test code = Total CK) 54 12-191 [facility]annCARProtégé BiomedicalAC [id number] 04:15:00 Test Item Value Reference Range Interpretation Comments CK MB (test code = CK MB) 0.6 0.5-3.6 [facility]anoannMollyWatrAC [id number] 04:15:00 Test Item Value Reference Range Interpretation Comments CK MB Index (test 1.1 1 See_Comment [Automate d message] The code = CK MB Index) system w [facility] generated this result transmit todd reference range : <=2.5. The reference range was not used to interpr et this result as ning l/abnormal. [facility] [employer] [id number] 04:15:00 Test Item Value Reference Range Interpretation Comments Lactic Acid Lvl (test code = Lactic 5.2 0.5-2.2 Acid Lvl) [facility] [employer] [id number] 04:15:00 Test Item Value Reference Range Interpretation Comments Magnesium Lvl (test code = Magnesium 2.4 1.8-2.4 Lvl) [facility] [employer] [id number] 04:15:00 Test Item Value Reference Range Interpretation Comments Phosphorus (test code = Phosphorus) 4.0 2.5-4.5 [facility] [employer] [id number] 04:15:00 Test Item Value Reference Range Interpretation Comments Ketone Quantitative (test code = Ketone 4.44 Quantitative) [facility] [employer] [id number] 04:15:00 Test Item Value Reference Range Interpretation Comments eGFR (test code = eGFR) 42 [facility]2018-06-15 04:15:00 Test Item Value Reference Range Interpretation Comments Globulin (test code = Globulin) 4.2 2.7-4.2 [facility]2018-06-15 04:15:00 Test Item Value Reference Range Interpretation Comments A/G Ratio (test code = A/G Ratio) 1.1 1 0.7-1.6 [facility]2018-06-15 04:15:00 Test Item Value Reference Range Interpretation Comments B/C Ratio (test code = B/C Ratio) 15 1 6-25 [facility]2018-06-15 04:15:00 Test Item Value Reference Range Interpretation Comments AGAP (test code = AGAP) 24.5 10.0-20.0 [place] [id number] 04:15:00 Test Item Value Reference Range Interpretation Comments AST (test code = AST) 30 See_Comment [Auto mated message] The system which ge nerated this result transmit todd reference range : <=37. The reference range was not used to interpr et this result as ning l/abnormal. [facility]2018-06-15 04:15:00 Test Item Value Reference Range Interpretation Comments Alk Phos (test code = Alk Phos) 103 39-136 [facility]2018-06-15 04:15:00 Test Item Value Reference Range Interpretation Comments Bili Total (test code = Bili Total) 0.6 0.2-1.3 [facility]2018-06-15 04:15:00 Test Item Value Reference Range Interpretation Comments Glucose Lvl (test code = Glucose Lvl) 332 70-99 [facility]2018-06-15 04:15:00 Test Item Value Reference Range Interpretation Comments Albumin Lvl (test code = Albumin Lvl) 4.5 3.5-5.0 [facility]2018-06-15 04:15:00 Test Item Value Reference Range Interpretation Comments Total Protein (test code = Total 8.7 6.4-8.4 Protein) [facility]2018-06-15 04:15:00 Test Item Value Reference Range Interpretation Comments Calcium Lvl (test code = Calcium Lvl) 9.5 8.5-10.5 [facility]2018-06-15 04:15:00 Test Item Value Reference Range Interpretation Comments CO2 (test code = CO2) 14 24-32 [facility]2018-06-15 04:15:00 Test Item Value Reference Range Interpretation Comments Chloride Lvl (test code = Chloride Lvl) 103 95-109 [facility]2018-06-15 04:15:00 Test Item Value Reference Range Interpretation Comments Potassium Lvl (test code = Potassium 4.5 3.5-5.1 Lvl) [facility]2018-06-15 04:15:00 Test Item Value Reference Range Interpretation Comments BUN (test code = BUN) 27 7-22 [facility]2018-06-15 04:15:00 Test Item Value Reference Range Interpretation Comments Sodium Lvl (test code = Sodium Lvl) 137 135-145 [facility]2018-06-15 04:15:00 Test Item Value Reference Range Interpretation Comments Creatinine Lvl (test code = Creatinine 1.80 0.50-1.40 Lvl) [facility]2018-06-15 04:15:00 Test Item Value Reference Range Interpretation Comments ALT (test code = ALT) 44 See_Comment [Auto mated message] The system which ge nerated this result transmit todd reference range : <=65. The reference range was not used to interpr et this result as ning l/abnormal. [facility]2018-06-15 04:15:00 Test Item Value Reference Range Interpretation Comments Lipase Lvl (test code = Lipase Lvl) 358 73-393 [facility]HropurrOFSFUYFJIT1594-96-69 04:15:00 Test Item Value Reference Range Interpretation Comments PTT (test code = PTT) 29.2 s 22.9-35.8 [facility]
[2022-12-01] MEDS ORDERED: HYDROCODONE/APAP 5/325 MG TAB ONE (08:02)
[2022-12-01] MEDS ORDERED: KETOROLAC 30 MG/ML INJ ONE (08:02)
--- NOTE | 2022-12-01 09:40 | RAD REPORT ---
EXAM DESCRIPTION: RAD - Femur Left - 12/01/2022 9:21 am CLINICAL HISTORY: PAIN COMPARISON: No comparisons FINDINGS: Diffuse osteopenia is seen. Intratrochanteric fracture of the proximal left femur is noted with varus angulation. No evidence of a dislocation.
--- NOTE | 2022-12-01 10:31 | ER ---
Nurse's Notes [facility] Name: Nick Elizondo II Age: 57 yrs Sex: Male : 1965 Arrival Date: 12/01/2022 Time: 07:06 Bed 18 Private MD: Diagnosis: Intertrochanteric fracture of femur;Fall on same level, unspecified;Type 2 diabetes mellitus with hyperglycemia Presentation: 12/01 07:22 Chief complaint: EMS states: Pt states that he tripped and fell and was on the floor ph for approx 2-3 hours before he was able to scoot to his cell phone to call EMS, pt c/o L hip and leg pain, VSS, pt skin to face is melton in appearance which he states is normal for him, BGL 79, oral glucose given, VSS. Coronavirus screen: Vaccine status: Patient reports being unvaccinated. Ebola Screen: No symptoms or risks identified at this time. 07:22 Method Of Arrival: EMS: [facility] 07:51 Care prior to arrival: None. Mechanism of Injury: Fall from standing position. Trauma event details: Injury occurred in the [facility], Injury occurred: at home. Injury occurred: December 01, 2022. 07:51 Acuity: EMMA 3 ph 08:51 Initial Sepsis Screen: Does the patient meet any 2 criteria? No. Patient's initial ph sepsis screen is negative. Does the patient have a suspected source of infection? No. Patient's initial sepsis screen is negative. Risk Assessment: Do you want to hurt yourself or someone else? Patient reports no desire to harm self or others. Onset of symptoms was December 01, 2022. Trauma Activation: Not Applicable Physician: ED Physician; Name: ; Notified At: ; Arrived At: Physician: General Surgeon; Name: ; Notified At: ; Arrived At: Physician: Radiology; Name: ; Notified At: ; Arrived At: Physician: Respiratory; Name: ; Notified At: ; Arrived At: Physician: Lab; Name: ; Notified At: ; Arrived At: Historical: - Allergies: 08:50 No Known Allergies; ph - PMHx: 08:50 Diabetes - IDDM; ph - PSHx: 08:50 cardiac stents; ph - Immunization history:: Adult Immunizations unknown. - Immunization history: Last tetanus immunization: unknown. - Social history:: Smoking status: Patient reports the use of cigarette tobacco products, smokes one pack cigarettes per day. Screenin:49 [facility] ED Fall Risk Assessment (Adult) History of falling in the last 3 months, ph including since admission Yes- single mechanical fall (1 pt) Confusion or Disorientation No (0 pts) Intoxicated or Sedated No (0 pts) Impaired Gait No (0 pts) Mobility Assist Device Used No (0 pt) Altered Elimination No (0 pt) Score/Fall Risk Level 0 - 2 = Low Risk Oriented to surroundings, Maintained a safe environment, Hourly rounding (assess needs \T\ fall precautionary measures) done. Abuse screen: Denies threats or abuse. Denies injuries from another. Nutritional screening: No deficits noted. Tuberculosis screening: No symptoms or risk factors identified. Primary Survey: 08:50 NO uncontrolled hemorrhage observed. A: The client is awake and alert. The airway is ph patent. Breathing/Chest: Spontaneous respiratory effort, equal unlabored respirations, breath sounds clear bilaterally, regular pattern, symmetrical chest rise and fall. Circulation: No external hemorrhage present. Regular and strong central pulse, skin warm/dry/normal color. Disability Pupils are equal, round, reactive to light and accommodation. Exposure/Environment: There is no evidence of uncontrolled external bleeding. No obvious injuries are noted at this time. A warming method has been applied: A warm blanket has been provided to the patient. Assessment: 07:50 Reassessment: Patient appears in no apparent distress at this time. Patient and/or ph family updated on plan of care and expected duration. Pain level reassessed. Patient is alert, oriented x 3, equal unlabored respirations, skin warm/dry/pink. Pt unable to tolerate, straightening legs or changing position for imaging d/t pain, DR Crews notified, verbal order received for PO norco 5/325 x 1 and 15 mg Toradol IVP, see SEP. 08:49 General: Appears in no apparent distress. uncomfortable, slender, Behavior is calm, ph cooperative, appropriate for age. Pain: Complains of pain in left leg. Neuro: Level of Consciousness is awake, alert, obeys commands, Oriented to person, place, time, situation. Cardiovascular: Capillary refill < 3 seconds in bilateral fingers Patient's skin is warm and dry. Respiratory: Airway is patent Respiratory effort is even, unlabored. Derm: Skin is dusky, Skin temperature is warm. Vital Signs: 07:35 BP 128 / 56; Pulse 107; Resp 16; Temp 98.4; Pulse Ox 98% ; Weight 49.9 kg; Height 5 ft. ko1 6 in. ; 10:00 BP 130 / 77; Pulse 105; Resp 18; Pulse Ox 98% on R/A; ph 11:00 BP 115 / 96; Pulse 105; Resp 18; Pulse Ox 98% on R/A; ph 12:00 BP 130 / 62; Pulse 98; Resp 18; Pulse Ox 98% on R/A; ph 07:35 Body Mass Index 17.75 (49.90 kg, 167.64 cm) ko1 [place] Coma Score: 08:51 Eye Response: spontaneous(4). Motor Response: obeys commands(6). Verbal Response: ph oriented(5). Total: 15. Trauma Score (Adult): 08:51 Eye Response: spontaneous(1); Verbal Response: oriented(1); Motor Response: obeys ph commands(2); Systolic BP: > 89 mm Hg(4); Respiratory Rate: 10 to 29 per min(4); [place] Score: 15; Trauma Score: 12 ED Course: 07:22 Patient arrived in ED. ph 07:23 Chencho Crews DO is Attending Physician. ms3 07:50 Lina Green, RN is Primary Nurse. ph 07:51 Triage completed. ph 08:51 Patient has correct armband on for positive identification. Placed in gown. Bed in low ph position. Call light in reach. Side rails up X 1. Pulse ox on. NIBP on. 08:51 Arm band placed on Patient placed in an exam room. ph 08:51 Patient maintains SpO2 saturation greater than 95% on room air. Thermoregulation: warm ph blanket given to patient. 09:23 Femur Left XRAY In Process Unspecified. EDMS 10:30 Chito Moreira MD is Hospitalizing Provider. ms3 Administered Medications: 08:02 Drug: Ketorolac IVP 10 mg 10 mg Route: IVP; Site: left hand; ph 12:45 Follow up: Response: No adverse reaction ph 08:02 Drug: HYDROcodone-acetaminophen PO 5 mg-325 mg 1 tabs Route: PO; ph 12:45 Follow up: Response: No adverse reaction ph 12:05 Drug: morphine IVP or IV 4 mg Route: IVP; Infused Over: 4 mins; Site: left hand; ph 12:45 Follow up: Response: No adverse reaction; Pain is decreased ph Medication: 08:50 VIS not applicable for this client. ph Outcome: 10:31 Decision to Hospitalize by Provider. ms3 12:08 Patient's length of stay was not longer than 2 hours. ph 13:19 Patient left the ED. iw Signatures: Dispatcher [employer] EDMS Michelle Avila RN RN iw Lina Green RN RN ph Chencho Crews DO DO ms3 Katy Dow RN RN ko1 Corrections: (The following items were deleted from the chart) 10:44 08:02 HYDROcodone-acetaminophen PO 5 mg-325 mg 2 tabs PO ph ph
--- NOTE | 2022-12-01 10:31 | EDPHYS ---
Physician Documentation [facility] Name: Nick Elizondo II Age: 57 yrs Sex: Male : 1965 Arrival Date: 12/01/2022 Time: 07:06 Bed 18 Private MD: ED Physician Chencho Crews HPI: 12/01 07:31 This 57 yrs old Male presents to ER via Unassigned with complaints of Fall Injury. ms3 07:31 57-year-old male with no past medical history presents via [facility] status post fall ms3 patient states he is having left upper leg pain. Patient denies striking his head, loss of consciousness. Patient states the pain is better with rest. Patient states the pain is worse with movement of his left leg. Patient denies pain at rest. Patient states pain is a 10/10 with movement.. Historical: - Allergies: 08:50 No Known Allergies; ph - PMHx: 08:50 Diabetes - IDDM; ph - PSHx: 08:50 cardiac stents; ph - Immunization history:: Adult Immunizations unknown. - Immunization history: Last tetanus immunization: unknown. - Social history:: Smoking status: Patient reports the use of cigarette tobacco products, smokes one pack cigarettes per day. ROS: 07:31 Constitutional: Negative for fever, and chills. Neck: Negative for injury, pain, and ms3 swelling, Cardiovascular: Negative for chest pain, and palpitations. Respiratory: Negative for shortness of breath, cough, wheezing, and pleuritic chest pain, Abdomen/GI: Negative for abdominal pain, nausea, vomiting, diarrhea, and constipation. 07:31 MS/extremity: Positive for pain, of the left leg. 07:31 All other systems are negative. Exam: 07:31 Constitutional: This is a well developed, well nourished patient who is awake, alert, ms3 and in no acute distress. Head/Face: Normocephalic, atraumatic. Neck: Trachea midline, no cervical lymphadenopathy. Supple, full range of motion without nuchal rigidity, or vertebral point tenderness. No Meningismus. Chest/axilla: Normal chest wall appearance and motion. Nontender with no deformity. Cardiovascular: Regular rate and rhythm with a normal S1 and S2. No gallops, murmurs, or rubs. Normal PMI, no JVD. No pulse deficits. Respiratory: Lungs have equal breath sounds bilaterally, clear to auscultation and percussion. No rales, rhonchi or wheezes noted. No increased work of breathing, no retractions or nasal flaring. Abdomen/GI: Soft, non-tender, with normal bowel sounds. No distension or tympany. No guarding or rebound. No evidence of tenderness throughout. Skin: Warm, dry with normal turgor. Normal color with no rashes, no lesions, and no evidence of cellulitis. 07:31 Musculoskeletal/extremity: Extremities: noted in the left leg: pain, tenderness, There is no evidence of deformity. Vital Signs: 07:35 BP 128 / 56; Pulse 107; Resp 16; Temp 98.4; Pulse Ox 98% ; Weight 49.9 kg; Height 5 ft. ko1 6 in. ; 10:00 BP 130 / 77; Pulse 105; Resp 18; Pulse Ox 98% on R/A; ph 11:00 BP 115 / 96; Pulse 105; Resp 18; Pulse Ox 98% on R/A; ph 12:00 BP 130 / 62; Pulse 98; Resp 18; Pulse Ox 98% on R/A; ph 07:35 Body Mass Index 17.75 (49.90 kg, 167.64 cm) ko1 [place] Coma Score: 08:51 Eye Response: spontaneous(4). Motor Response: obeys commands(6). Verbal Response: ph oriented(5). Total: 15. Trauma Score (Adult): 08:51 Eye Response: spontaneous(1); Verbal Response: oriented(1); Motor Response: obeys ph commands(2); Systolic BP: > 89 mm Hg(4); Respiratory Rate: 10 to 29 per min(4); [place] Score: 15; Trauma Score: 12 MDM: 07:29 Patient medically screened. ms3 07:31 Differential diagnosis: fracture, sprain, strain. ms3 11:46 Data reviewed: vital signs, nurses notes, lab test result(s), radiologic studies, and ms3 as a result, I will admit patient. Consideration of Admission/Observation Patient was admitted/placed on observation. Management of patient was discussed with the following: Hospitalist: Dr Moreira. Clinical Dietician: Dr Soriano. I considered the following discharge prescriptions or medication management in the emergency department Medications were administered in the Emergency Department. See MAR. Independent interpretation of the following test(s) in the Emergency Department X-Ray: My interpretation is X-ray images of L femur reviewed by me show intertrochanteric hip fracture. Historians other than the Patient: EMS: [facility]. Counseling: I had a detailed discussion with the patient and/or guardian regarding: the historical points, exam findings, and any diagnostic results supporting the discharge/admit diagnosis, lab results, radiology results, the need for further work-up and treatment in the hospital. ED course: . 12/01 09:59 Order name: CBC with Diff; Complete Time: 12:05 ms3 12/01 09:59 Order name: CMP; Complete Time: 12:05 ms3 12/01 07:30 Order name: Femur Left XRAY; Complete Time: 09:50 ms3 12/01 11:38 Order name: Hip Right 2 View XRAY ms3 Administered Medications: 08:02 Drug: Ketorolac IVP 10 mg 10 mg Route: IVP; Site: left hand; ph 12:45 Follow up: Response: No adverse reaction ph 08:02 Drug: HYDROcodone-acetaminophen PO 5 mg-325 mg 1 tabs Route: PO; ph 12:45 Follow up: Response: No adverse reaction ph 12:05 Drug: morphine IVP or IV 4 mg Route: IVP; Infused Over: 4 mins; Site: left hand; ph 12:45 Follow up: Response: No adverse reaction; Pain is decreased ph Disposition Summary: 12/01/22 10:31 Hospitalization Ordered Hospitalization Status: Inpatient Admission ms3 Provider: Chito Moreira ms3 Location: Telemetry/[facility]Sur (Inpatient) ms3 Condition: Stable ms3 Problem: new ms3 Symptoms: are unchanged ms3 Bed/Room Type: Standard ms3 Room Assignment: 212(12/01/22 12:20) bd Diagnosis - Intertrochanteric fracture of femur ms3 - Fall on same level, unspecified ms3 - Type 2 diabetes mellitus with hyperglycemia ms3 Forms: - Medication Reconciliation Form ms3 - SBAR form ms3 Signatures: Dispatcher [employer] EDMS Caterina Calix Patricia, RN RN Chencho Corado DO DO ms3 Corrections: (The following items were deleted from the chart) 07:30 Hip Left 2 View+RAD.RAD.BRZ ordered. EDMS EDMS 12:20 10:31 ms3 bd
[2022-12-01 11:30] LABS: Absolute Lymphocytes (CBC) 0.9 K/uL (0.7-4.9); Hematocrit 41.1 % (39.6-49.0); MCV 91.9 fL (80-100); MPV 7.3 fL (7.6-11.3); RBC Red Blood Cell Count 4.47 M/uL (4.33-5.43)
[2022-12-01] MEDS ORDERED: ACETAMINOPHEN 325 MG TABLET PO PRN (11:50)
[2022-12-01 11:51] LABS: Albumin 3.7 g/dL (3.4-5.0); Bilirubin Total 0.8 mg/dL (0.2-1.0); Potassium 4.8 mEq/L (3.5-5.1); Protein, Total 6.8 g/dL (6.4-8.2)
[2022-12-01] MEDS ORDERED: ONDANSETRON 4 MG/2 ML VIAL IV PRN (11:55)
[2022-12-01] MEDS ORDERED: MORPHINE 4 MG/ML SYR ONE (12:07)
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
--- NOTE | 2022-12-01 13:22 | RAD REPORT ---
EXAM DESCRIPTION: RAD - Hip Right 2 View - 12/01/2022 1:13 pm CLINICAL HISTORY: Right hip pain FINDINGS: No fracture or dislocation is seen. The bones are osteoporotic. If patient continues to have symptoms to suggest an occult fracture MRI would be recommended
[2022-12-01] MEDS: HYDROCODONE/APAP 10/325 TAB PO PRN ×2 (14:18→21:01)
[2022-12-01 14:28] VITALS: BMI 17.7
[2022-12-01 15:35] LABS: Magnesium 2.3 mg/dL (1.6-2.4); Phosphorus 5.2 mg/dL (2.5-4.9); Thyroid Stimulating Hormone 2.18 uIU/mL (0.358-3.740); Troponin High Sensitivity 8.6 pg/mL (<58.9)
[2022-12-01 15:57] LABS: Specific Gravity 1.026 (1.005-1.030); Urine Bilirubin NEGATIVE (Negative); Urine Blood Negative (Negative); Urine Clarity Clear (Clear); Urine Color Light-Yellow (Yellow); Urine Glucose 4+ (Over) (Negative); Urine Protein NEGATIVE (Negative); Urine Urobilinogen Normal (Normal); Urine pH 5.5 (5.0-7.0)
[2022-12-01 16:02] LABS: Potassium 5.1 mEq/L (3.5-5.1)
[2022-12-01] MEDS ORDERED: GLUCAGON 1 MG/VIAL IM PRN (16:27)
[2022-12-01] MEDS ORDERED: INSULIN -REGULAR HUMAN 50 UNIT/0.5 ML ML SQ SCH ×2 (16:30)
[2022-12-01] MEDS ORDERED: INSULIN GLARGINE 100 UNIT/ML SQ SCH (17:00)
[2022-12-01] MEDS ORDERED: INSULIN LISPRO 100 UNIT/1 ML SQ SCH (17:00)
[2022-12-01] MEDS ORDERED: NA CHLORIDE 0.9% 1,000 ML IV SCH (17:00)
[2022-12-01] MEDS ORDERED: NA CHLORIDE 0.9% 1,000 ML IV ONE ×2 (17:42)
[2022-12-01 18:39] LABS: Potassium 4.6 mEq/L (3.5-5.1)
[2022-12-01] MEDS ORDERED: INSULIN -REGULAR HUMAN 100 UNIT in NA CHLORIDE 0.9% 100 ML IV SCH (19:00)
[2022-12-01] MEDS: ATORVASTATIN 40 MG TAB PO SCH (21:01)
[2022-12-01] MEDS: NACHLORIDE 0.45% 1,000 ML IV SCH (21:02)
[2022-12-01] MEDS: D5 0.45 NS 1,000 ML IV SCH (22:17)
[2022-12-01 23:32] LABS: Potassium 3.6 mEq/L (3.5-5.1)
[2022-12-02] MEDS: NACHLORIDE 0.45% 1,000 ML IV SCH ×4 (01:40→20:12)
[2022-12-02] MEDS: HYDROCODONE/APAP 10/325 TAB PO PRN ×4 (04:00→21:35)
[2022-12-02 04:33] LABS: Hematocrit 34.3 % (39.6-49.0); Lymphocytes % 13.4 % (15.3-44.8); MCV 91.1 fL (80-100); MPV 7.1 fL (7.6-11.3); RBC Red Blood Cell Count 3.77 M/uL (4.33-5.43)
[2022-12-02] MEDS: D5 0.45 NS 1,000 ML IV SCH ×5 (05:04→23:42)
[2022-12-02] MEDS: D10W 250 ML BAG IV PRN (05:08)
--- NOTE | 2022-12-02 07:04 | P.PN ---
Date of Service: 12/02/22 Subjective: briefly went into DKA yesterday, transferred to ICU. better today, off insulin drip this morning, NPO For possible procedure complains of extreme leg pain no nausea / vomiting no new / worsening problems waiting on cardiac clearance for surgery mazariegos placed yesterday, pt complaining of urinary urgency/frequency, difficulty urinating ROS: 10 point ROS as noted above, otherwise negative Physical Exam: GEN: Alert, oriented, NAD HEENT: dusky discoloration of face (chronic) CV: Regular rate and rhythm, no edema Pulm: Nonlabored respirations on room air ABD: Soft, nontender, nondistended MSK: Moderate left hip tenderness Integumentary: No rashes Neuro: Normal speech, normal affect Mazariegos in place vitals reviewed Problem List: Left Femur Fracture [id number] with hyperglycemia, with DKA History of CAD with stents Nicotine dependence Hyponatremia CKD 2 History of seizure disorder COPD Left Femur Fracture Imaging indicates Diffuse osteopenia is seen. Intratrochanteric fracture of the proximal left femur is noted with varus angulation. No evidence of a dislocation. Dr. Soriano - ortho, consulted recommends CT hip for further evaluation of suspicious area along acetabulum and femoral head Cardiology consulted for cardiac clearance Pain medication as needed Leukocytosis likely reactive. continue to monitor WBC DM2 with hyperglycemia and DKA sliding scale insulin Complicated by DKA on 12/01, resolved Transferred to ICU on 12/01, insulin drip initiated Confirm home dose insulin Hyponatremia Suspect pseudohyponatremia, levels normal once corrected for hyperglycemia Continue to monitor closely History of CAD with stents - Continue statin Nicotine dependence - Patient counseled on tobacco cessation. Patient placed on nicotine patch. CKD 2 Stable. We will continue to monitor renal function History of seizure disorder. Seizure precaution. Continue home medications when available. COPD. Stable. VTE: SCD Code: Full Dispo: Home 2-3 days
[2022-12-02 09:24] LABS: Magnesium 2.2 mg/dL (1.6-2.4); Phosphorus 2.9 mg/dL (2.5-4.9); Potassium 3.8 mEq/L (3.5-5.1)
--- NOTE | 2022-12-02 12:13 | CON ---
Date of Consultation: 12/01/2022 Reason For Consultation: Cardiac clearance for left hip surgery by Dr. Soriano. History Of Present Illness: Mr. Elizondo is 57. Has a history of hypertension, diabetes, coronary artery disease status post intervention. Comes in with a fall, left hip fracture. No syncope. Edvin ed any chest pain, nausea, vomiting, diaphoresis, PND, orthopnea, pedal edema, or palpitations. Allergies: NONE. Medications: The only medicine he takes at home is lisinopril. Review of Systems: Negative. Social History: Negative. Family History: Noncontributory. Physical Examination: Vital Signs: Stable, afebrile, appeared older than stated age. HEENT: Negative. Neck: Supple with no bruit. Chest: Clear. Cardiac: Normal. Abdomen: Benign. Extremities: Revealed no cyanosis or edema. Diagnostic Data: His EKG was normal. His white count was slightly elevated at 14,000. His glucose was 388. Sodium was 128. His heart rate was 115 and sinus tach. Impression And Plan: This is a patient with hypertension, diabetes, history of coronary artery disea se. No cardiac symptoms. EKG is normal. I think he needs to have his sodium addressed. He should be hydrated. He is to have his glucose addressed. His heart rate, I am not too concerned about, thi s is secondary to his pain. His EKG is normal. There is an echocardiogram pending on him. I will c lear him after the echo is done. TRISTAN/KELSY Voice ID: [id number] Report ID: [id number]
--- NOTE | 2022-12-02 13:22 | RAD REPORT ---
EXAM DESCRIPTION: CT - Hip Left Wo Con - 12/02/2022 12:56 pm CLINICAL HISTORY: r/o acetabular fx Fall, pain COMPARISON: Femur Left dated 12/01/2022 FINDINGS: There is intratrochanteric fracture seen of the proximal left femur with varus angulation. The left sacroiliac joint is intact. No acetabular fracture seen. The entire pelvis is not included, however in the study. No pelvic mass or hematoma. IMPRESSION: Intratrochanteric fracture of the proximal left femur with varus angulation. No acetabul ar fracture visualized within the included images. Sacroiliac joint on the left also noted to be inta ct. All CT scans are performed using dose optimization technique as appropriate and may include automated exposure control or mA/KV adjustment according to patient size.
[2022-12-02] MEDS ORDERED: MORPHINE 4 MG/ML SYR IV ONE (13:24)
--- NOTE | 2022-12-02 14:11 | CON ---
Date of Consultation: 12/01/2022 This is my first time seeing this patient to my knowledge. He is a 57-year-old gentleman who does corea ve several medical issues, who unfortunately sustained an injury to his left lower extremity. X-rays were taken in the emergency department, which demonstrated an intertrochanteric fracture and diffuse osteopenia of the left femur, and I am called to see him. On physical examination, all his long bon es and joints are palpated without pain or crepitation with the exception of both hips. He is compla ining of significant pain related to both his right and left hip with any movement or manipulation. When asked about his ambulatory status, he says that he perhaps had a stroke, he is unsure, but has d ifficulty walking. Says that he walks like a "drunken cowboy." He is asked whether or not he has a knee extension on the left side as trying to extend his knee. At this time, it is very painful for h im, but however this pain is generated from his hip. He says he is unsure whether or not his knees s traighten out when he walks and is not a very good historian, however, apparently he does not use a w heelchair for mobilization. He will be admitted under the care of the hospitalist as he does have mu ltiple medical problems including type 2 diabetes, history of coronary artery disease with stents, hy ponatremia, history of seizure disorder and kidney disease. We discussed treatment of his left hip, and at this time, the plan would be for a left hip intramedullary abbi fixation. He says he understan ds things as presented and wishes to proceed. He will also obtain an x-ray of his right hip as he is complaining of significant pain there as well. All of his questions were otherwise answered today. /KELSY Voice ID: [id number] Report ID: [id number]
[2022-12-02 14:15] LABS: Potassium 3.9 mEq/L (3.5-5.1)
[2022-12-02] MEDS ORDERED: GLUCAGON 1 MG/VIAL IM PRN ×2 (14:53→14:59)
[2022-12-02] MEDS ORDERED: D50W 25 GM/50 ML SYRINGE IV PRN ×2 (14:53→14:59)
[2022-12-02] MEDS ORDERED: INSULIN -REGULAR HUMAN 50 UNIT/0.5 ML ML SQ SCH (16:30)
[2022-12-02] MEDS: INSULIN -REGULAR HUMAN 50 UNIT/0.5 ML ML SQ SCH ×2 (17:20→20:42)
[2022-12-02] MEDS: GLUCERNA SHAKE 237 ML CAN PO SCH (20:40)
[2022-12-02] MEDS: ATORVASTATIN 40 MG TAB PO SCH (20:41)
[2022-12-03] MEDS: HYDROCODONE/APAP 10/325 TAB PO PRN ×2 (04:32→19:09)
[2022-12-03 04:58] LABS: Absolute Lymphocytes (CBC) 1.1 K/uL (0.7-4.9); Lymphocytes % 10.3 % (15.3-44.8); MCV 91.7 fL (80-100); MPV 7.4 fL (7.6-11.3); RBC Red Blood Cell Count 3.93 M/uL (4.33-5.43)
[2022-12-03 05:21] LABS: Albumin 2.9 g/dL (3.4-5.0); Bilirubin Total 0.4 mg/dL (0.2-1.0); Potassium 4.6 mEq/L (3.5-5.1); Protein, Total 5.9 g/dL (6.4-8.2)
[2022-12-03] MEDS ORDERED: INSULIN -REGULAR HUMAN 50 UNIT/0.5 ML ML IV ONE (05:25)
[2022-12-03] MEDS ORDERED: D50W 25 GM/50 ML SYRINGE IV PRN (05:25)
[2022-12-03] MEDS: NACHLORIDE 0.45% 1,000 ML IV SCH ×3 (06:07→19:39)
--- NOTE | 2022-12-03 06:51 | P.PN ---
Date of Service: 12/03/22 Subjective: claims pain is a 3 when at rest, worsened with movement - up to 10 with minimal movement no new / worsening problems cleared for surgery per cardio ROS: 10 point ROS as noted above, otherwise negative Physical Exam: GEN: Alert, oriented, NAD HEENT: dusky discoloration of face (chronic) CV: Regular rate and rhythm, no edema Pulm: Nonlabored respirations on room air ABD: Soft, nontender, nondistended MSK: Moderate left hip tenderness; pain with ROM Neuro: Normal speech, normal affect Casanova in place vitals reviewed Problem List: Left Femur Fracture DM1 with hyperglycemia, with DKA History of CAD with stents Nicotine dependence Hyponatremia CKD 2 History of seizure disorder COPD Left Femur Fracture Imaging indicates Diffuse osteopenia is seen. Intratrochanteric fracture of the proximal left femur is noted with varus angulation. No evidence of a dislocation. Dr. Soriano - ortho, consulted recommended CT hip 12/02 - Intratrochanteric fracture of the proximal left femur with varus angulation Cardiology consulted - cleared for surgery - no further testing needed NPO for left hip intramedullary abbi fixation 12/03 Pain medication as needed Leukocytosis likely reactive. continue to monitor WBC DM1 with hyperglycemia and DKA sliding scale insulin Complicated by DKA on 12/01, resolved Transferred to ICU on 12/01, insulin drip initiated; off drip 12/02 Confirm home dose insulin hyperglycemic again this morning. will restart long acting Hyponatremia pseudohyponatremia, normal once corrected for hyperglycemia Continue to monitor closely History of CAD with stents - Continue statin Nicotine dependence - Patient counseled on tobacco cessation. Patient placed on nicotine patch. CKD 2 Stable. We will continue to monitor renal function History of seizure disorder. Seizure precaution. Continue home medications when available. COPD. Stable. SCD: dvt prophylaxis after surgery Code: Full Dispo: Home 2-3 days
--- NOTE | 2022-12-03 07:25 | ECHO ---
HEIGHT: 5 ft 6 in WEIGHT: 110 lb 0 oz DATE OF STUDY: 12/02/[address]: Isabel Price 2-DIMENSIONAL: YES M.MODE: YES DOPPLER: YES COLOR FLOW: YES TDS: NO PORTABLE: YES DEFINITY: NO BUBBLE STUDY: NO DIAGNOSIS: CARDIAC CLEARANCE CARDIAC HISTORY: CATHERIZATION: SURGERY: PROSTHETIC VALVE: PACEMAKER: MEASUREMENTS (cm) DIASTOLIC (NORMALS) SYSTOLIC (NORMALS) IVSd 0.9 (0.6-1.2) LA Diam 3.3 (1.9-4.0) LVEF 45-50% LVIDd 3.8 (3.5-5.7) LVIDs 3.0 (2.0-3.5) %FS 19% LVPWd 1.0 (0.6-1.2) Ao Diam 2.7 (2.0-3.7) 2 DIMENSIONAL ASSESSMENT: RIGHT ATRIUM: NORAML LEFT ATRIUM: NORMAL RIGHT VENTRICLE: NORMAL LEFT VENTRICLE: NORMAL TRICUSPID VALVE: NORMAL MITRAL VALVE: NORMAL PULMONIC VALVE: NORMAL AORTIC VALVE: NORMAL PERICARDIAL EFFUSION: NONE AORTIC ROOT: NORMAL LEFT VENTRICULAR WALL MOTION: MILD GLOBAL HYPOKINESIS. DOPPLER/COLOR FLOW: NORMAL. COMMENTS: MILD GLOBAL HYPOKINESIS. EJECTION FRACTION 45-50% NO EFFUSION TECHNOLOGIST: YURIDIA COURTNEY
[2022-12-03] MEDS: GLUCERNA SHAKE 237 ML CAN PO SCH ×2 (07:27→20:48)
[2022-12-03] MEDS: INSULIN -REGULAR HUMAN 50 UNIT/0.5 ML ML SQ SCH ×4 (07:34→20:47)
[2022-12-03] MEDS: MORPHINE 4 MG/ML SYR IV PRN ×3 (09:23→23:18)
[2022-12-03] MEDS ORDERED: NA CHLORIDE 0.9% 1,000 ML ONE (10:35)
[2022-12-03] MEDS: D5 0.45 NS 1,000 ML IV SCH (11:00)
[2022-12-03] MEDS ORDERED: propofoL 200 MG/20 ML VIAL IV ONE (11:04)
[2022-12-03] MEDS ORDERED: FENTANYL CITR 100 MCG/2 ML ONE (11:04)
[2022-12-03] MEDS ORDERED: LIDOCAINE 2% MPF 5 ML VIAL ONE (11:05)
[2022-12-03] MEDS ORDERED: MIDAZOLAM HCL 2 MG/2 ML INJ ONE (11:05)
[2022-12-03] MEDS ORDERED: CEFAZOLIN SODIUM 1 GM/VIAL ONE (11:13)
[2022-12-03] MEDS ORDERED: ONDANSETRON 4 MG/2 ML VIAL ONE (11:13)
[2022-12-03] MEDS ORDERED: TRANEXAMIC ACID 1,000 MG/10 ML VIAL IV ONE (11:14)
--- NOTE | 2022-12-03 12:11 | P.BOP ---
Preoperative diagnosis: left intertrochanteric fracture Postoperative diagnosis: same Primary procedure: left hip ISADORA abbi Estimated blood loss: 100ccs Anesthesia: General Complications: None Transferred to: Recovery Room Condition: Good
--- NOTE | 2022-12-03 12:26 | RAD REPORT ---
EXAM DESCRIPTION: RAD - Hip Left 2 View - 12/03/2022 12:21 pm CLINICAL HISTORY: LT HIP-FEM JIGNESH/NAIL PROXIMAL APPROACH COMPARISON: None available. FINDINGS: Twenty-seven Images were sent to PACS, documenting needle positions during an image guided femoral intramedullary nail placement procedure. No radiologist was available for the procedure, nor will any image interpretation he provided. Please refer to the procedural report for additional deta ils. Fluoroscopy time: 0.8 Minutes. IMPRESSION: Documentation of fluoroscopy utilization as above.
[2022-12-03] MEDS: HYDROMORPHONE HCL 1 MG/ML INJ ONE ×2 (12:45→12:56)
[2022-12-03] MEDS ORDERED: HYDROMORPHONE HCL 1 MG/ML INJ ONE (13:17)
--- NOTE | 2022-12-03 14:18 | OP ---
Date of Procedure: 12/03/2022 Surgeon: Steffen Soriano MD Preoperative Diagnosis: Left displaced intertrochanteric fracture. Postoperative Diagnosis: Left displaced intertrochanteric fracture. Procedure: Left proximal femur closed reduction with intramedullary abbi fixation. Affixus nail was used. Complications: There were no complications. Estimated Blood Loss: 150 cc. Indications For Operation: Mr. Elizondo is a 57-year-old gentleman, who unfortunately fell injuring his left lower extremity. He was seen and examined in the emergency department and was ruled out fo r other injuries. He did have complaints of right hip pain; however, x-rays did not demonstrate any problems there. He did have a displaced and comminuted left intertrochanteric fracture. Risks, bene fits, and alternatives of different methods of treating this have been discussed with the patient. H e states he understands things as presented and agrees to proceed with the planned procedure. Procedure In Detail: The patient was taken to the operating room and placed in supine position. Gen eral anesthesia was obtained by Anesthesia staff. Following this, he was then transferred to the [facility] cture table where he was appropriately positioned using the fracture table. All of his bony prominen le and positioning being checked. After this, the C-arm was brought in, which demonstrates a good r eduction on both AP and lateral views. After this, the left lower extremity was then prepped and jason ped in the usual sterile fashion procedure. A ojseph was made for the greater trochanter and a vertica l incision was made just above that carefully through skin and soft tissues. Meticulous hemostasis b eing maintained using Bovie electrocautery. This leads down to the trochanter, which was easily palp ated with a finger. The starting awl was then used with the assistance of the C-arm to establish sta rting portal in the correct position. This was followed by placement of the guide abbi. After the gu magdy abbi was placed, a supervisor cigar making hand was then used to ream past the lesser trochanter and a size 130 mm Affixus nail was then placed at appropriate depth. The cephalomedullary screw was then placed in sta ndard fashion and this was followed by a derotation screw superiorly. After this, a derotation screw was then placed distally. All this was done without difficulty. Following this, the incisions were irrigated and the fascia was closed in a watertight fashion using heavy Vicryl sutures followed by c losure of the skin with Vicryl and grzegorz. The patient was then awakened, taken to recovery room. JAYSHREE Voice ID: [id number] Report ID: [id number]
[2022-12-03] MEDS: CEFAZOLIN 1 GM in NA CHLORIDE 0.9% 50 ML IVPB SCH (19:40)
[2022-12-03] MEDS: ATORVASTATIN 40 MG TAB PO SCH (19:58)
[2022-12-03] MEDS: CYCLOBENZAPRINE 10 MG TAB PO PRN (19:58)
[2022-12-03] MEDS: INSULIN GLARGINE 100 UNIT/ML SQ SCH (20:47)
[2022-12-04] MEDS: CEFAZOLIN 1 GM in NA CHLORIDE 0.9% 50 ML IVPB SCH (03:32)
[2022-12-04] MEDS: CYCLOBENZAPRINE 10 MG TAB PO PRN ×2 (05:22→17:18)
[2022-12-04] MEDS: MORPHINE 4 MG/ML SYR IV PRN ×3 (05:22→17:18)
[2022-12-04] MEDS: NACHLORIDE 0.45% 1,000 ML IV SCH (05:29)
[2022-12-04 05:47] LABS: Absolute Lymphocytes (CBC) 1.1 K/uL (0.7-4.9); Hematocrit 35.4 % (39.6-49.0); MCV 90.5 fL (80-100); MPV 7.6 fL (7.6-11.3); RBC Red Blood Cell Count 3.91 M/uL (4.33-5.43)
--- NOTE | 2022-12-04 07:00 | P.PN ---
Date of Service: 12/04/22 Subjective: states the pain was worse this morning after surgery, now greatly improved Feeling pretty well at rest, continues to worsen with any small movement minimal to no PT today due to pain, did not let therapist touch or move leg today ROS: 10 point ROS as noted above, otherwise negative Physical Exam: GEN: Alert, oriented, NAD HEENT: dusky discoloration of face (chronic) CV: Regular rate and rhythm, no edema Pulm: Nonlabored respirations on room air ABD: Soft, nontender, nondistended MSK: surgical dressing c/d/i Neuro: Normal speech, normal affect Casanova in place vitals reviewed Problem List: Left Femur Fracture DM1 with hyperglycemia, with DKA History of CAD with stents Nicotine dependence Hyponatremia CKD 2 History of seizure disorder COPD Left Femur Fracture Imaging indicates Diffuse osteopenia is seen. Intratrochanteric fracture of the proximal left femur is noted with varus angulation. No evidence of a dislocation. Dr. Soriano - ortho, consulted recommended CT hip 12/02 - Intratrochanteric fracture of the proximal left femur with varus angulation Cardiology consulted - cleared for surgery - no further testing needed NPO for left hip intramedullary abbi fixation 12/03 Pain medication as needed Leukocytosis reactive. continue to monitor WBC DM1 with hyperglycemia and DKA sliding scale insulin Complicated by DKA on 12/01, resolved Transferred to ICU on 12/01, insulin drip initiated; off drip 12/02 Confirm home dose insulin Hyponatremia pseudohyponatremia, normal once corrected for hyperglycemia Continue to monitor closely History of CAD with stents - Continue statin Nicotine dependence - Patient counseled on tobacco cessation. Patient placed on nicotine patch. CKD 2 Stable. We will continue to monitor renal function History of seizure disorder. Seizure precaution. Continue home medications when available. COPD. Stable. SCD: dvt prophylaxis after surgery Code: Full Dispo: SNF 2-3 days Patient states he lives at home and seems agreeable to SNF at this time cm/sw assisting with dispo
[2022-12-04] MEDS: INSULIN -REGULAR HUMAN 50 UNIT/0.5 ML ML SQ SCH ×4 (07:30→20:14)
[2022-12-04] MEDS: INSULIN GLARGINE 100 UNIT/ML SQ SCH ×2 (08:24→20:14)
[2022-12-04] MEDS: APIXABAN 2.5 MG TABLET PO SCH ×2 (08:24→19:35)
[2022-12-04] MEDS: HYDROCODONE/APAP 10/325 TAB PO PRN ×2 (08:36→19:34)
--- NOTE | 2022-12-04 11:53 | PN ---
Patient was seen for cardiac clearance because of history of CAD, PCI, diabetes, and hypertension. E chocardiogram showed an ejection fraction of 45% to 50%. Today, he is doing well. He has had surger y on his hip already. His room air saturation is 100%. Last creatinine is 0.65. Last glucose is 11 9. He remains on Lipitor, antibiotics and insulin. We will continue to follow on an as-needed basis . We would like to see him in the office as an outpatient. TRISTAN/KELSY Voice ID: [id number] Report ID: [id number]
[2022-12-04] MEDS: GLUCERNA SHAKE 237 ML CAN PO SCH ×2 (12:25→20:15)
[2022-12-04] MEDS: ATORVASTATIN 40 MG TAB PO SCH (19:35)
[2022-12-05] MEDS: CYCLOBENZAPRINE 10 MG TAB PO PRN ×2 (00:06→15:33)
[2022-12-05 05:24] LABS: Absolute Lymphocytes (CBC) 1.3 K/uL (0.7-4.9); Hematocrit 34.9 % (39.6-49.0); Lymphocytes % 12.9 % (15.3-44.8); MPV 7.5 fL (7.6-11.3); RBC Red Blood Cell Count 3.83 M/uL (4.33-5.43)
[2022-12-05 05:38] LABS: Albumin 2.5 g/dL (3.4-5.0); Bilirubin Total 0.5 mg/dL (0.2-1.0); Potassium 4.2 mEq/L (3.5-5.1)
[2022-12-05] MEDS: MORPHINE 4 MG/ML SYR IV PRN ×3 (05:47→20:21)
--- NOTE | 2022-12-05 06:56 | P.PN ---
Date of Service: 12/05/22 Subjective: pain more tolerable; needing less pain medication; still feels leg is very sensitive - even to light touch able to rest well overnight states he hasnt been drinking much water, will try to drink more no BM, no gas ROS: 10 point ROS as noted above, otherwise negative Physical Exam: GEN: Alert, oriented, NAD HEENT: dusky discoloration of face (chronic) CV: Regular rate and rhythm with intermittent sinus tachycardia, no edema Pulm: Nonlabored respirations on room air ABD: Soft, nontender, nondistended MSK: surgical dressing c/d/i, tender to light palpation in LLE Neuro: Normal speech, normal affect Casanova in place vitals reviewed Problem List: Left Femur Fracture now s/p surgical fixation DM1 with hyperglycemia, with DKA (Resolved) History of CAD with stents Nicotine dependence Hyponatremia CKD 2 History of seizure disorder COPD Left Femur Fracture now s/p surgical fixation Imaging indicates Diffuse osteopenia is seen. Intratrochanteric fracture of the proximal left femur is noted with varus angulation. No evidence of a dislocation. Dr. Soriano - ortho, consulted s/p left hip intramedullary abbi fixation 12/03 after cardiac clearance was obtained post-op DVT prophylaxis - eliquis Pain medication as needed improving PT consulted did not work too much with them due to pain on 12/04 DM1 with hyperglycemia and DKA (resolved) Complicated by DKA on 12/01, resolved sliding scale insulin, semglee; adjust as needed Transferred to ICU on 12/01, insulin drip initiated; off drip 12/02; no longer requiring ICU level of care Hyponatremia pseudohyponatremia, normal once corrected for hyperglycemia Continue to monitor closely History of CAD with stents - Continue statin Nicotine dependence - Patient counseled on tobacco cessation. Patient placed on nicotine patch. CKD 2 Stable. We will continue to monitor renal function History of seizure disorder. Seizure precaution. Continue home medications when available. COPD. Stable. VTE: Eliquis Code: Full Dispo: SNF 2-3 days Patient states he lives at home, agreeable to SNF cm/sw assisting with dispo
[2022-12-05] MEDS: INSULIN -REGULAR HUMAN 50 UNIT/0.5 ML ML SQ SCH ×4 (08:09→20:32)
[2022-12-05] MEDS: INSULIN GLARGINE 100 UNIT/ML SQ SCH ×2 (08:09→20:32)
[2022-12-05] MEDS: GLUCERNA SHAKE 237 ML CAN PO SCH ×2 (08:10→20:32)
[2022-12-05] MEDS: APIXABAN 2.5 MG TABLET PO SCH ×2 (08:10→20:21)
[2022-12-05] MEDS: HYDROCODONE/APAP 10/325 TAB PO PRN ×2 (08:10→18:35)
[2022-12-05] MEDS: DOCUSATE NA 100 MG CAP PO SCH ×2 (08:50→20:27)
[2022-12-05] MEDS: ATORVASTATIN 40 MG TAB PO SCH (20:21)
[2022-12-06] MEDS: CYCLOBENZAPRINE 10 MG TAB PO PRN ×2 (03:09→10:45)
[2022-12-06] MEDS: HYDROCODONE/APAP 10/325 TAB PO PRN ×3 (03:09→18:48)
[2022-12-06 05:04] LABS: Hematocrit 34.4 % (39.6-49.0); Lymphocytes % 10.7 % (15.3-44.8); MCV 90.8 fL (80-100); MPV 7.3 fL (7.6-11.3); RBC Red Blood Cell Count 3.79 M/uL (4.33-5.43)
[2022-12-06 05:21] LABS: Potassium 4.6 mEq/L (3.5-5.1)
[2022-12-06] MEDS ORDERED: D50W 25 GM/50 ML SYRINGE IV PRN (05:30)
[2022-12-06] MEDS ORDERED: INSULIN -REGULAR HUMAN 50 UNIT/0.5 ML ML IV ONE (05:32)
[2022-12-06] MEDS: INSULIN -REGULAR HUMAN 50 UNIT/0.5 ML ML SQ SCH ×5 (05:50→21:56)
--- NOTE | 2022-12-06 06:56 | P.PN ---
Date of Service: 12/06/22 Subjective: feeling much better this morning, slept well overnight pain is well managed with medication; pain more tolerable to touch no new / worsening problems HR elevated in 110s-120s yesterday intermittently, low 100s today ROS: 10 point ROS as noted above, otherwise negative Physical Exam: GEN: Alert, oriented, NAD HEENT: dusky discoloration of face (chronic) CV: Regular rate and rhythm with intermittent sinus tachycardia, no edema Pulm: Nonlabored respirations on room air ABD: Soft, nontender, nondistended MSK: surgical dressing c/d/i, tender in upper thigh, no significant swelling Neuro: Normal speech, normal affect Casanova in place vitals reviewed Problem List: Left Femur Fracture now s/p surgical fixation DM1 with hyperglycemia, with DKA (Resolved) History of CAD with stents Nicotine dependence Hyponatremia CKD 2 History of seizure disorder COPD Left Femur Fracture now s/p surgical fixation Dr. Soriano - ortho, consulted s/p left hip intramedullary abbi fixation 12/03 after cardiac clearance was obtained post-op DVT prophylaxis - eliquis Pain medication as needed improving PT consulted did not work too much with them due to pain on 12/04 slight improvement on 12/05 very reluctant / anticipating pain which is limiting him DM1 with hyperglycemia and DKA (resolved) Complicated by DKA on 12/01, resolved sliding scale insulin, semglee; adjust as needed increased again on 12/06 Transferred to ICU on 12/01, insulin drip initiated; off drip 12/02; no longer requiring ICU level of care Hyponatremia pseudohyponatremia, normal once corrected for hyperglycemia Continue to monitor closely History of CAD with stents - Continue statin Nicotine dependence - Patient counseled on tobacco cessation. Patient placed on nicotine patch. CKD 2 Stable. We will continue to monitor renal function History of seizure disorder. Seizure precaution. Continue home medications when available. COPD. Stable. VTE: Eliquis Code: Full Dispo: Pending [facility] approval - Faith An
[2022-12-06] MEDS: DOCUSATE NA 100 MG CAP PO SCH ×2 (07:48→21:55)
[2022-12-06] MEDS: APIXABAN 2.5 MG TABLET PO SCH ×2 (07:48→21:55)
[2022-12-06] MEDS: GLUCERNA SHAKE 237 ML CAN PO SCH ×2 (07:49→21:58)
[2022-12-06] MEDS: INSULIN GLARGINE 100 UNIT/ML SQ SCH ×2 (07:49→21:56)
[2022-12-06] MEDS: MORPHINE 4 MG/ML SYR IV PRN ×3 (07:53→21:54)
[2022-12-06] MEDS: Ringers Lactate 500 ML IV SCH ×4 (09:48→21:00)
[2022-12-06] MEDS: ATORVASTATIN 40 MG TAB PO SCH (21:56)
[2022-12-07] MEDS: Ringers Lactate 500 ML IV SCH ×6 (01:00→21:00)
[2022-12-07] MEDS: MORPHINE 4 MG/ML SYR IV PRN ×4 (02:21→21:02)
[2022-12-07] MEDS: D10W 250 ML BAG IV PRN (02:55)
[2022-12-07] MEDS: HYDROCODONE/APAP 10/325 TAB PO PRN ×3 (03:30→17:48)
[2022-12-07 03:53] LABS: Absolute Lymphocytes (CBC) 1.7 K/uL (0.7-4.9); Hematocrit 34.9 % (39.6-49.0); Lymphocytes % 16.2 % (15.3-44.8); MCV 90.9 fL (80-100); MPV 7.5 fL (7.6-11.3); RBC Red Blood Cell Count 3.84 M/uL (4.33-5.43)
[2022-12-07 04:12] LABS: Potassium 4.3 mEq/L (3.5-5.1)
--- NOTE | 2022-12-07 06:57 | P.PN ---
Date of Service: 12/07/22 Subjective: Feeling pretty good today pain not as severe no new / worsening problems ROS: 10 point ROS as noted above, otherwise negative Physical Exam: GEN: Alert, oriented, NAD HEENT: dusky discoloration of face (chronic) CV: Regular rate and rhythm with intermittent sinus tachycardia, no edema Pulm: Nonlabored respirations on room air ABD: Soft, nontender, nondistended MSK: surgical dressing c/d/i, tender in upper thigh, no significant swelling Neuro: Normal speech, normal affect Casanova in place vitals reviewed Problem List: Left Femur Fracture now s/p surgical fixation DM1 with hyperglycemia, with DKA (Resolved) History of CAD with stents Nicotine dependence Hyponatremia CKD 2 History of seizure disorder COPD Left Femur Fracture now s/p surgical fixation Dr. Soriano - ortho, consulted s/p left hip intramedullary abbi fixation 12/03 after cardiac clearance was obtained post-op DVT prophylaxis - eliquis Pain medication as needed improving PT consulted did not work too much with them due to pain on 12/04 slight improvement on 12/05 very reluctant / anticipating pain which is limiting him DM1 with hyperglycemia and DKA (resolved) Complicated by DKA on 12/01, resolved sliding scale insulin, semglee; adjust as needed increased again on 12/06 Transferred to ICU on 12/01, insulin drip initiated; off drip 12/02; no longer requiring ICU level of care Hyponatremia pseudohyponatremia, normal once corrected for hyperglycemia Continue to monitor closely History of CAD with stents - Continue statin Nicotine dependence - Patient counseled on tobacco cessation. Patient placed on nicotine patch. CKD 2 Stable. We will continue to monitor renal function History of seizure disorder. Seizure precaution. Continue home medications when available. COPD. Stable. VTE: Eliquis Code: Full Dispo: Pending SNF approval - Faith An
[2022-12-07] MEDS: INSULIN -REGULAR HUMAN 50 UNIT/0.5 ML ML SQ SCH ×4 (07:30→21:02)
[2022-12-07] MEDS ORDERED: INSULIN GLARGINE 100 UNIT/ML SQ SCH (09:00)
[2022-12-07] MEDS: INSULIN GLARGINE 100 UNIT/ML SQ SCH (09:15)
[2022-12-07] MEDS: APIXABAN 2.5 MG TABLET PO SCH ×2 (09:15→20:51)
[2022-12-07] MEDS: DOCUSATE NA 100 MG CAP PO SCH ×2 (09:15→20:51)
[2022-12-07] MEDS: GLUCERNA SHAKE 237 ML CAN PO SCH ×2 (09:17→21:00)
[2022-12-07] MEDS: ATORVASTATIN 40 MG TAB PO SCH (20:51)
--- NOTE | 2022-12-07 22:39 | PN ---
Date of Progress Note: 12/07/2022 Mr. Elizondo is 57, came in for hip fracture. He required cardiac clearance had an ejection fractio n of 45% to 50%. He already had his hip surgery. He has a history of hypertension, diabetes, reis ry artery disease. No cardiac complaint. No arrhythmia. No clinical evidence of CHF. He is postop now, stable hemodynamically. He is on Eliquis 2.5 mg b.i.d., Lopressor, and insulin. From our jairo dpoint, we will sign off his case. I think he should follow up with us as an outpatient in the next week or 2 after discharge. No change in therapy for now. NB/MODL Voice ID: [id number] Report ID: [id number]
[2022-12-08] MEDS: Ringers Lactate 500 ML IV SCH ×3 (01:00→09:00)
[2022-12-08] MEDS: MORPHINE 4 MG/ML SYR IV PRN ×3 (06:03→15:00)
[2022-12-08 07:00] LABS: Magnesium 2.1 mg/dL (1.6-2.4); Potassium 5.1 mEq/L (3.5-5.1)
[2022-12-08 07:05] LABS: Absolute Lymphocytes (CBC) 1.3 K/uL (0.7-4.9); Lymphocytes % 12.1 % (15.3-44.8); MPV 7.2 fL (7.6-11.3); RBC Red Blood Cell Count 3.73 M/uL (4.33-5.43)
[2022-12-08] MEDS: APIXABAN 2.5 MG TABLET PO SCH ×2 (07:36→20:48)
[2022-12-08] MEDS: INSULIN GLARGINE 100 UNIT/ML SQ SCH (07:37)
[2022-12-08] MEDS: DOCUSATE NA 100 MG CAP PO SCH ×2 (07:37→20:48)
[2022-12-08] MEDS: INSULIN -REGULAR HUMAN 50 UNIT/0.5 ML ML SQ SCH ×4 (07:37→21:00)
[2022-12-08] MEDS: GLUCERNA SHAKE 237 ML CAN PO SCH ×2 (07:38→20:49)
[2022-12-08] MEDS: HYDROCODONE/APAP 10/325 TAB PO PRN ×2 (08:06→16:25)
[2022-12-08] MEDS: CYCLOBENZAPRINE 10 MG TAB PO PRN (09:37)
--- NOTE | 2022-12-08 13:43 | P.PN ---
Subjective Date of Service: 12/08/22 Chief Complaint: Left leg pain. Patient has no new complaint. He states his pain is well controlled. Physical Examination - Vital Signs Temperature: 99.3 F Blood Pressure: 159/84 Pulse: 111 Respirations: 18 Pulse Ox (%): 99 Assessment And Plan - Plan Physical Exam: GEN: Alert, oriented, NAD HEENT: dusky discoloration of face (chronic) CV: Regular rate and rhythm with intermittent sinus tachycardia, no edema Pulm: Clear to auscultation bilaterally. ABD: Soft, nontender, nondistended MSK: surgical dressing c/d/i, tender in upper thigh, no significant swelling Neuro: Normal speech, normal affect Casanova in place vitals reviewed Problem List: Left Femur Fracture now s/p surgical fixation DM1 with hyperglycemia, with DKA (Resolved) History of CAD with stents Nicotine dependence Hyponatremia CKD 2 History of seizure disorder COPD Left Femur Fracture now s/p surgical fixation Dr. Soriano - ortho saw patient s/p left hip intramedullary abbi fixation 12/03 after cardiac clearance was obtained post-op DVT prophylaxis - eliquis Pain medication as needed Continue PT. Awaiting SNF placement pending insurance approval. DM1 with hyperglycemia and DKA (resolved) Complicated by DKA on 12/01, resolved. Patient needed ICU transfer for insulin drip Now on the medical floor on sliding scale insulin and semglee; titrate Semglee. History of CAD with stents - Continue statin Nicotine dependence - Patient counseled on tobacco cessation. Patient placed on nicotine patch. CKD 2 Stable. History of seizure disorder. Seizure precaution. Continue home medications. COPD. Stable. VTE: Eliquis Code: Full
[2022-12-08] MEDS ORDERED: GLUCAGON 1 MG/VIAL IM PRN (13:45)
[2022-12-08] MEDS ORDERED: D50W 25 GM/50 ML SYRINGE IV PRN (13:45)
[2022-12-08] MEDS: INSULIN LISPRO 100 UNIT/1 ML SQ SCH (16:17)
[2022-12-08] MEDS: ATORVASTATIN 40 MG TAB PO SCH (20:48)
[2022-12-09] MEDS: HYDROCODONE/APAP 10/325 TAB PO PRN ×3 (02:16→22:01)
[2022-12-09 04:49] LABS: Potassium 4.8 mEq/L (3.5-5.1)
[2022-12-09] MEDS: INSULIN -REGULAR HUMAN 50 UNIT/0.5 ML ML SQ SCH ×5 (06:05→20:56)
[2022-12-09] MEDS: APIXABAN 2.5 MG TABLET PO SCH ×2 (08:25→20:55)
[2022-12-09] MEDS: DOCUSATE NA 100 MG CAP PO SCH ×2 (08:25→20:55)
[2022-12-09] MEDS: INSULIN LISPRO 100 UNIT/1 ML SQ SCH ×2 (08:26→11:30)
[2022-12-09] MEDS: GLUCERNA SHAKE 237 ML CAN PO SCH ×2 (08:27→20:56)
[2022-12-09] MEDS: CYCLOBENZAPRINE 10 MG TAB PO PRN ×2 (08:35→20:55)
[2022-12-09] MEDS: MORPHINE 4 MG/ML SYR IV PRN (08:36)
[2022-12-09] MEDS ORDERED: INSULIN GLARGINE 100 UNIT/ML SQ SCH (09:00)
--- NOTE | 2022-12-09 14:01 | P.PN ---
Subjective Date of Service: 12/09/22 Chief Complaint: Left leg pain. Patient has no new complaint. Patient blood sugar is fluctuating between hypoglycemia and hyperglycemia. He is tolerating physical therapy. Physical Examination - Vital Signs Temperature: 98.7 F Blood Pressure: 111/65 Pulse: 114 Respirations: 18 Pulse Ox (%): 99 Assessment And Plan - Plan Physical Exam: GEN: Alert, oriented, NAD HEENT: dusky discoloration of face (chronic) CV: Regular rate and rhythm with intermittent sinus tachycardia, no edema Pulm: Clear to auscultation bilaterally. ABD: Soft, nontender, nondistended MSK: surgical dressing c/d/i, tender in upper thigh, no significant swelling Neuro: Normal speech, normal affect Casanova in place vitals reviewed Problem List: Left Femur Fracture now s/p surgical fixation DM1 with hyperglycemia, with DKA (Resolved) History of CAD with stents Nicotine dependence Hyponatremia CKD 2 History of seizure disorder COPD Left Femur Fracture now s/p surgical fixation Dr. Soriano - ortho performed left hip intramedullary abbi fixation 12/03 after cardiac clearance was obtained post-op DVT prophylaxis - eliquis Pain medication as needed Continue PT. Insurance approved patient for SNF. DM1 with hyperglycemia and DKA (resolved) Complicated by DKA on 12/01, resolved. Status post insulin drip. Now on sliding scale insulin and semglee; Patient with fluctuating blood sugar readings. Titrating Semglee. Waiting for blood sugar to be better controlled before discharge. History of CAD with stents - Continue statin Nicotine dependence - Patient counseled on tobacco cessation. Patient placed on nicotine patch. CKD 2 Stable. History of seizure disorder. Seizure precaution. Continue home medications. COPD. Stable. VTE: Eliquis Code: Full
[2022-12-09] MEDS: ATORVASTATIN 40 MG TAB PO SCH (20:55)
[2022-12-10 03:21] LABS: Potassium 4.3 mEq/L (3.5-5.1)
[2022-12-10] MEDS: DOCUSATE NA 100 MG CAP PO SCH ×2 (09:05→20:42)
[2022-12-10] MEDS: HYDROCODONE/APAP 10/325 TAB PO PRN ×3 (09:05→20:42)
[2022-12-10] MEDS: INSULIN -REGULAR HUMAN 50 UNIT/0.5 ML ML SQ SCH ×4 (09:08→20:43)
[2022-12-10] MEDS: INSULIN GLARGINE 100 UNIT/ML SQ SCH (09:08)
[2022-12-10] MEDS: GLUCERNA SHAKE 237 ML CAN PO SCH ×2 (09:09→20:44)
[2022-12-10] MEDS: APIXABAN 2.5 MG TABLET PO SCH ×2 (09:13→20:40)
--- NOTE | 2022-12-10 15:17 | P.PN ---
Subjective Date of Service: 12/10/22 Chief Complaint: Left leg pain. Patient has no new complaint. Patient blood sugar readings improved with less fluctuations. Functional status is improving with therapy. Physical Examination - Vital Signs Temperature: 98.2 F Blood Pressure: 126/72 Pulse: 134 Respirations: 20 Pulse Ox (%): 99 Assessment And Plan - Plan Physical Exam: GEN: Alert, oriented, NAD HEENT: dusky discoloration of face (chronic) CV: Regular rate and rhythm with intermittent sinus tachycardia, no edema Pulm: Clear to auscultation bilaterally. ABD: Soft, nontender, nondistended MSK: surgical dressing c/d/i, tender in upper thigh, no significant swelling Neuro: Normal speech, normal affect Casanova in place vitals reviewed Problem List: Left Femur Fracture now s/p surgical fixation DM1 with hyperglycemia, with DKA (Resolved) History of CAD with stents Nicotine dependence Hyponatremia CKD 2 History of seizure disorder COPD Left Femur Fracture now s/p surgical fixation Dr. Soriano - ortho performed left hip intramedullary abbi fixation 12/03 after cardiac clearance was obtained post-op DVT prophylaxis - eliquis Pain medication as needed Continue PT. functional status is improving. Insurance approved patient for SNF but patient states he cannot afford his co- pay. special services director following and exploring options for disposition. DM1 with hyperglycemia and DKA (resolved) Complicated by DKA on 12/01, resolved. Status post insulin drip. Now on sliding scale insulin and semglee; Blood sugar readings improved with less fluctuations. Titrating Semglee. History of CAD with stents - Continue statin Nicotine dependence - Patient counseled on tobacco cessation. Patient placed on nicotine patch. CKD 2 Stable. History of seizure disorder. Seizure precaution. Continue home medications. COPD. Stable. VTE: Eliquis Code: Full
[2022-12-10] MEDS: ATORVASTATIN 40 MG TAB PO SCH (20:40)
[2022-12-10] MEDS: CYCLOBENZAPRINE 10 MG TAB PO PRN (20:40)
[2022-12-11 04:17] LABS: Absolute Lymphocytes (CBC) 1.6 K/uL (0.7-4.9); Hematocrit 34.4 % (39.6-49.0); Lymphocytes % 15.6 % (15.3-44.8); MCV 90.3 fL (80-100)
[2022-12-11 04:35] LABS: Potassium 4.2 mEq/L (3.5-5.1)
[2022-12-11] MEDS: INSULIN GLARGINE 100 UNIT/ML SQ SCH (09:18)
[2022-12-11] MEDS: INSULIN -REGULAR HUMAN 50 UNIT/0.5 ML ML SQ SCH (09:19)
[2022-12-11] MEDS: DOCUSATE NA 100 MG CAP PO SCH (09:20)
[2022-12-11] MEDS: APIXABAN 2.5 MG TABLET PO SCH (09:20)
[2022-12-11] MEDS: GLUCERNA SHAKE 237 ML CAN PO SCH (09:22)
[2022-12-11 09:32] VITALS: O2SAT 100
[2022-12-11] MEDS: HYDROCODONE/APAP 10/325 TAB PO PRN (09:58)
[2022-12-11 10:03] VITALS: BP 129/73; TEMP 99.2
--- NOTE | 2022-12-11 10:32 | P.DS ---
Admission Date: 12/01/22 Discharge Date: 12/11/22 Disposition: TRANSFER TO [facility] Reason for Admission: Left leg pain. Brief History of Present Illness: Patient is a 57-year-old male with a past medical history significant for DM 2, CAD with stents, nicotine dependence who presents with complaint of left leg pain. Patient reported that he fell due to loss of balance. Patient rated pain as 9 /10 in severity and described as aching in quality. Patient reported that he was unable to get up for a couple of hours until he was eventually able to call EMS. Patient reported he was not been able to bear weight on the left leg. X-ray of the left femur reported diffuse osteopenia and intratrochanteric fracture of the proximal left femur with varus angulation. No evidence of a dislocation. Patient was hospitalized for further management. Hospital Course: Diagnosis Left Femur Fracture now s/p surgical fixation DM1 with hyperglycemia, with DKA (Resolved) History of CAD with stents Nicotine dependence Hyponatremia CKD 2 History of seizure disorder COPD Left Femur Fracture now s/p surgical fixation Dr. Soriano - tre performed left hip intramedullary abbi fixation 12/03 after cardiac clearance was obtained post-op DVT prophylaxis - eliquis Pain medication as needed Patient is receiving PT. Functional status is improving. Insurance approved patient for SNF. He is clinically stable for discharge. DM1 with hyperglycemia and DKA (resolved) Patient had DKA which was managed with insulin. Now on sliding scale insulin and semglee; Currently on Lantus insulin 15 units daily, and insulin sliding scale. History of CAD with stents - Continued statin Nicotine dependence - Patient counseled on tobacco cessation. Patient placed on nicotine patch. CKD 2 Stable. History of seizure disorder. Seizure precaution. Continued home medications. COPD. Stable. Vital Signs/Physical Exam: Temp Pulse Resp BP Pulse Ox 99.2 F 88 17 129/73 100 12/11/22 08:00 12/11/22 08:00 12/11/22 09:58 12/11/22 08:00 12/11/22 09:58 Laboratory Data at Discharge: WBC 10.10 thou/uL (4.3-10.9) 12/11/22 03:56 Hgb 11.7 g/dL (13.6-17.9) L 12/11/22 03:56 Hct 34.4 % (39.6-49.0) L 12/11/22 03:56 Plt Count 592 thou/uL (152-406) H 12/11/22 03:56 Sodium 131 mEq/L (136-145) L 12/11/22 03:56 Potassium 4.2 mEq/L (3.5-5.1) 12/11/22 03:56 BUN 28 mg/dL (7-18) H 12/11/22 03:56 Creatinine 0.68 mg/dL (0.70-1.30) L 12/11/22 03:56 Glucose 266 mg/dL (74-106) H 12/11/22 03:56 Phosphorus 2.9 mg/dL (2.5-4.9) 12/02/22 08:55 Magnesium 2.1 mg/dL (1.6-2.4) 12/08/22 06:27 Total Bilirubin 0.5 mg/dL (0.2-1.0) 12/05/22 04:37 AST 19 U/L (15-37) 12/05/22 04:37 ALT 19 U/L (16-61) 12/05/22 04:37 Alkaline Phosphatase 68 U/L (45-117) 12/05/22 04:37 Triglycerides 42 mg/dL (<150) 12/02/22 02:56 Cholesterol 182 mg/dL (<200) 12/02/22 02:56 HDL Cholesterol 111 mg/dL (40-60) H 12/02/22 02:56 Cholesterol/HDL Ratio 1.64 12/02/22 02:56 Home Medications: lisinopriL [Lisinopril] 20 mg PO DAILY 08/30/17 Apixaban [Eliquis *] 2.5 mg PO BID 21 Days tab 12/11/22 Atorvastatin Calcium [Lipitor] 40 mg PO BEDTIME tab 12/11/22 Cyclobenzaprine [Flexeril*] 5 mg PO TIDP PRN tab 12/11/22 Docusate [Colace Cap*] 100 mg PO BID cap 12/11/22 Glucerna Shake [Glucerna*] 237 ml PO BID can 12/11/22 Hydrocodone 10/APAP 325 [[place] 10/325*] 1 tab PO Q6H PRN #12 tab 12/11/22 Insulin -Regular Human [Novolin -R*] See Protocol SQ ACHS ml 12/11/22 Insulin Glargine,Hum.rec.anlog [Uzairglee] 15 unit SQ DAILY ml 12/11/22 New Medications: Hydrocodone 10/APAP 325 [[place] 10/325*] 1 tab PO Q6H PRN #12 tab PRN Reason: Pain Scale 5-7 (Moderate) Followup: NONE,NONE [Primary Care Provider] - Time spent managing pt's care (in minutes): 44
== END 2022-12-11 10:55 | DRG 480 ==
LOC: ER 07:06 → ERHOLD 11:47 → 2ND 13:06 → 3RD-ICU 19:52 → 2ND 12-07 02:45
PROVIDERS: ADMIT Hospitalist; ATTEND Internal Medicine
PROC: 0QS736Z Reposition Left Upper Femur with Intramedullary Internal Fixation Device, Percutaneous Approach (ICD-10-PCS; principal; 2022-12-03 11:30)
DX: S72.142A Displaced intertrochanteric fracture of left femur, initial encounter for closed fracture (principal); E10.10 Type 1 diabetes mellitus with ketoacidosis without coma; E43 Unspecified severe protein-calorie malnutrition; Z68.1 Body mass index [BMI] 19.9 or less, adult; E87.1 Hypo-osmolality and hyponatremia; N18.2 Chronic kidney disease, stage 2 (mild); E10.22 Type 1 diabetes mellitus with diabetic chronic kidney disease; J44.9 Chronic obstructive pulmonary disease, unspecified; D72.829 Elevated white blood cell count, unspecified; I25.10 Atherosclerotic heart disease of native coronary artery without angina pectoris; G40.909 Epilepsy, unspecified, not intractable, without status epilepticus; F17.210 Nicotine dependence, cigarettes, uncomplicated; Z95.5 Presence of coronary angioplasty implant and graft; Z79.4 Long term (current) use of insulin; Z79.01 Long term (current) use of anticoagulants; Z79.899 Other long term (current) drug therapy; W18.39XA Other fall on same level, initial encounter; Y93.9 Activity, unspecified; Y92.9 Unspecified place or not applicable
CPT/HCPCS: 36415; 73700; 80048; 80053; 80061; 81003; 82550; 82947; 83036; 83735; 83880; 84100; 84439; 84443; 84484; 85025; 93306; 94760; 96374; 96375; 97110; 97112; 97116; 97161; 97165; 97530; 99285; J0690; J1170; J1815; J2001; J2250; J2405; J2704; J3010; J7030; J7120; J7799